=== PATIENT | male | born 1965 | race Caucasian/White ===

== ENCOUNTER → 2016-09-16 | Outpatient (CLI) | payer MEDICARE, MEDICAID ==
[~2016-09-16] MED LIST: ALBU0.63 IH; ALBU2.5V4 IH; ALPR0.5T7 PO; AMOX500C2 PO; ARIP10TA10 PO; ATOR20TA66 PO; BENZ-13 PO; CIPR500T4 PO; DIVA500T7 PO; DULO60CA6 PO; FLUT9.9S NS; HYDR12.5 PO; HYDR4TAB49 PO; NF-SOLIF5T PO; OMEG1CAP58 PO; OMEP20CA12 PO; OXYC-465 PO; PRD20T PO; RT-ALBUINH INH; TRAZ100T92 PO; TRAZ150T72
--- NOTE | 2016-09-16 11:50 | Diagnostic Imaging Report ---
PROCEDURE: MRI right joint upper extremity without contrast. TECHNIQUE: Multiplanar, multisequence non contrast-enhanced MRI of the right upper extremity was accomplished. INDICATION: Right shoulder pain. FINDINGS: There is no os acromiale or Hill-Sachs deformity. The clavicular joint demonstrates mild AC joint osteoarthritis with mild inferior osteophytes. This has minimal impression upon the adjacent myotendinous junction of the supraspinatus. There is minimal fluid in the subacromial subdeltoid bursa. The supraspinatus and infraspinatus tendons demonstrate no significant tear. There is a slightly increased signal compatible with tendinosis and mild partial intrasubstance tear in the distal infraspinatus and low-grade partial bursal side tear in the distal supraspinatus tendon. The subscapular tendon demonstrates mild thickening and increased signal compatible with tendinosis. The long head biceps tendon is in its groove. The glenoid labrum demonstrates nonspecific increased signal in its superior segment and may relate to degeneration. The muscle bulk and signal is normal. IMPRESSION: 1. AC joint osteoarthritis with small inferior osteophytes. 2. Low grade partial tears and tendinosis seen in the rotator cuff tendons. 3. Increased signal seen in the superior segment of the labrum may relate to degeneration or nondisplaced tear. If needed, this can be better evaluated with MR arthrogram. Dictated by: Dictated on workstation # [id number]
== END ==
LOC: RAD 09:39
PROVIDERS: ATTEND Nurse Practitioner
DX: M75.101 Unspecified rotator cuff tear or rupture of right shoulder, not specified as traumatic (principal)
CPT/HCPCS: 73221

== ENCOUNTER 2016-11-23 09:09 | Outpatient (CLI) | payer MEDICARE, MEDICAID ==
[~2016-11-23] VITALS: Ht 170.2 cm; Wt 74.0 kg
[~2016-11-23 09:09] MED LIST changes: -ALBU0.63 IH; -ARIP10TA10 PO; -DULO60CA6 PO; -FLUT9.9S NS; -HYDR4TAB49 PO; -NF-SOLIF5T PO; -OMEG1CAP58 PO; -TRAZ100T92 PO
[2016-11-23 09:20] VITALS: BP 100/78
[2016-11-23] MEDS ORDERED: DULO60CA6 PO (09:31)
[2016-11-23] MEDS ORDERED: ARIP10TA10 PO (09:31)
[2016-11-23] MEDS ORDERED: NF-SOLIF5T PO (09:31)
[2016-11-23] MEDS ORDERED: ALBU0.63 IH (09:31)
[2016-11-23] MEDS ORDERED: FLUT9.9S NS (09:31)
[2016-11-23] MEDS ORDERED: TRAZ100T92 PO (09:31)
[2016-11-23] MEDS ORDERED: OMEG1CAP58 PO (09:37)
== END 2016-11-23 09:45 | disposition home or self-care (01) ==
LOC: PREOP 09:09
PROVIDERS: ATTEND Orthopaedic Surgery
DX: Z01.818 Encounter for other preprocedural examination (principal); Z11.2 Encounter for screening for other bacterial diseases; S43.431A Superior glenoid labrum lesion of right shoulder, initial encounter
CPT/HCPCS: 87081

== ENCOUNTER 2016-11-30 06:00 | Day surgery (SDC) | payer MEDICARE, MEDICAID ==
--- NOTE | 2016-11-23 13:59 | HISTORY AND PHYSICAL ---
DATE OF SERVICE: HISTORY: The patient is a 51-year-old right-hand dominant gentleman with complaints of right shoulder pain. He reports pain which has been progressive over the last several months. He reports it is worth with overhead activities. He denies any specific injuries or trauma. He underwent an MRI which revealed a SLAP tear. There was also evidence of rotator cuff tendinosis but no full thickness tearing. Due to functional impairment and failure to improve with conservative measures, the patient has elected to proceed with surgical intervention. REVIEW OF SYSTEMS: No chest pain, no shortness of breath, no dysuria. PAST MEDICAL HISTORY: Back pain, COPD, coronary artery disease, CVA, depression, hypertension, neck pain, osteoarthritis, seizures, BPH, chronic pain, congestive heart failure, allergic rhinitis, anxiety disorder, edema, reflux and hyperlipidemia. PAST SURGICAL HISTORY: Left carpal tunnel release, tonsillectomy, lump removed from throat and tooth extraction. FAMILY HISTORY: Significant for hypertension, ischemic heart disease, COPD, diabetes. PRIMARY CARE PROVIDER: [facility]. MEDICATIONS: 1. Fish oil. 2. Diphenhydramine. 3. Depakote. 4. Hydrochlorothiazide. 5. Trazodone. 6. Flonase. 7. Ventolin. 8. Albuterol. 9. Abilify. 10. Cymbalta. 11. Omeprazole. 12. VESIcare. 13. Lipitor. 14. Alprazolam. 15. Percocet. 16. Potassium. ALLERGIES: ULTRACET, CODEINE and PROZAC. SOCIAL HISTORY: The patient smokes one pack per day. The patient drinks alcohol regularly. PHYSICAL EXAMINATION: GENERAL: The patient is well-developed, well-nourished in no acute distress. HEENT: Normocephalic, atraumatic. Pupils are equal, round and react to light. Oropharynx is clear. NECK: Supple with no lymphadenopathy. LUNGS: Clear to auscultation bilaterally. HEART: Regular rate and rhythm. ABDOMEN: Soft, nontender and nondistended. EXTREMITIES: The right shoulder demonstrates no atrophy. No skin lesions are noted. He has intact sensation throughout his right upper extremity. He has a positive Neer's and positive Hawkin's sign with markedly positive Hillside's maneuver. No gross weakness with abduction or external rotation but mild pain elicited. Active range of motion is symmetric in all planes with 170 degrees of forward elevation, external rotation of 90 degrees and internal rotation of 80 degrees. IMPRESSION: Right shoulder SLAP tear with rotator cuff tendinosis. PLANS: Right shoulder arthroscopy with biceps tenotomy, labral debridement and acromioplasty. The risks, benefits, options and ramifications and recovery were discussed at length with the patient. He understands and wishes to proceed. Job ID: [id number] DocumentID: [id number] Dictated Date: 11/22/2016 09:40:34 Steam Hoist Operator Date: 11/22/2016 10:33:59 Dictated By: ALY CORREA MD
[~2016-11-30] VITALS: Ht 170.2 cm; Wt 74.0 kg
[~2016-11-30 06:00] MED LIST changes: +ALBU0.63 IH; +ARIP10TA10 PO; +DULO60CA6 PO; +FLUT9.9S NS; +NF-SOLIF5T PO; +OMEG1CAP58 PO; +TRAZ100T92 PO
[2016-11-30] MEDS ORDERED: NS (IVPB) 50 ML ONE (06:31)
[2016-11-30] MEDS ORDERED: ceFAZolin 1,000 MG (ANCEF) VIAL ONE (06:31)
[2016-11-30] MEDS ORDERED: FAMOTIDINE 20MG/2ML IV (PEPCID) ONE (06:36)
[2016-11-30] MEDS ORDERED: LACTATED RINGERS 1,000 ML IV PRN ×2 (06:46→06:52)
[2016-11-30] MEDS ORDERED: MIDAZOLAM 2 MG/2 ML (VERSED) VIAL ONE (06:48)
[2016-11-30] MEDS ORDERED: ONDANSETRON 4 MG/2 ML (SDV) Z0FRAN ONE (06:49)
[2016-11-30] MEDS ORDERED: proPOfol 200 MG/20 ML (DIPRIVAN) VIAL IV ONE (06:49)
[2016-11-30] MEDS ORDERED: DEXAMETHASONE PF 10 MG/ML (DECADRON) VIAL ONE (06:49)
[2016-11-30] MEDS ORDERED: LACTATED RINGERS 1,000 ML IV ONE (06:49)
[2016-11-30] MEDS ORDERED: SEVOFLURANE (ULTANE) 15 ML INHAL SOLN ONE (06:49)
[2016-11-30] MEDS ORDERED: LIDOCAINE PF 2% 10 ML (XYLOCAINE) AMP ONE (06:49)
[2016-11-30] MEDS ORDERED: ROCURONIUM 50 MG/5 ML (ZEMURON) VIAL IV ONE (06:49)
[2016-11-30 07:00] VITALS: BP 107/80
[2016-11-30] MEDS ORDERED: FAMOTIDINE 20MG/2ML IV (PEPCID) IV ONE ×2 (07:00)
[2016-11-30] MEDS ORDERED: ceFAZolin 1 GM/NS 50 ML IVPB IV ONE ×2 (07:00)
[2016-11-30] MEDS ORDERED: fentaNYL INJECTION 100 MCG/2 ML AMP ONE (07:08)
[2016-11-30] MEDS ORDERED: BUPIVACAINE 0.25% 30 ML (SENSORCAINE) VIAL ONE (07:11)
--- NOTE | 2016-11-30 07:22 | Progress Note-Pre Operative ---
Pre-Operative Progress Note H&P Reviewed The H&P was reviewed, patient examined and no changes noted. Date H&P Reviewed: November 30, 2016 Time H&P Reviewed: 07:11 Pre-Operative Diagnosis: right shoulder SLAP tear and rotator cuff impingement ALY CORREA MD November 30, 2016 07:22
--- NOTE | 2016-11-30 07:23 | Progress Note-Post Operative ---
Post-Operative Progess Note Surgeon (s)/Diesel Power Mechanic (s) Surgeon ALY CORREA MD Diesel Power Mechanic: Selvin Salinas Pre-Operative Diagnosis right shoulder SLAP tear and rotator cuff impingement Post-Operative Diagnosis right shoulder SLAP tear and rotator cuff impingement Post-Op Procedure Note Date of Procedure: November 30, 2016 Name of Procedure Performed: right shoulder arthroscopic biceps tenotomy and acromioplasty Description of the Procedure: see operative note Findings of the Procedure TYPE 2 SLAP tear Anesthesia Type GETA Estimated blood loss (mL): minimal Packing: none Specimen(s) collected/removed none ALY CORREA MD November 30, 2016 07:23
[2016-11-30] MEDS ORDERED: HYDROmorphone (DILAUDID) 4 MG TAB PO PRN (07:30)
[2016-11-30] MEDS ORDERED: GLYCOPYRROLATE 0.2 MG/ML (ROBINUL) 2 ML VIAL ONE (07:56)
[2016-11-30] MEDS ORDERED: NEOSTIGMINE (BLOXIVERZ ) 1 MG/1ML 10 ML VIAL ONE (07:56)
[2016-11-30] MEDS: morphine PF (DURAMORPH) 10 MG/10 ML AMP ONE ×2 (07:57→08:19)
[2016-11-30] MEDS ORDERED: HYDROmorphone (DILAUDID) 2 MG/ML VIAL IVP PRN (08:30)
[2016-11-30] MEDS: fentaNYL INJECTION 100 MCG/2 ML AMP IVP PRN ×2 (08:33→08:38)
[2016-11-30 09:20] VITALS: BP 138/90
[2016-11-30] MEDS ORDERED: HYDR4TAB49 PO (09:35)
[2016-11-30 09:50] VITALS: BP 126/90
[2016-11-30 10:20] VITALS: BP 131/89
--- NOTE | 2016-11-30 10:22 | OPERATIVE REPORT ---
DATE OF SERVICE: 11/30/2016 PREOPERATIVE DIAGNOSES: 1. Right shoulder SLAP tear. 2. Right shoulder rotator cuff impingement. POSTOPERATIVE DIAGNOSES: 1. Right shoulder SLAP tear. 2. Right shoulder rotator cuff impingement. PROCEDURES: 1. Right shoulder arthroscopic biceps tenotomy. 2. Right shoulder arthroscopic acromioplasty. SURGEON: Ervin Correa MD LUTE PACKER OR APPLIER: BAILEE Jarvis, who assisted throughout the procedure and closed the incisions. ANESTHESIA: General endotracheal by Hanh Acosta CRNA. ESTIMATED BLOOD LOSS: Minimal. DRAINS: None. COMPLICATIONS: None. POSTOPERATIVE PLAN: Sling wear for comfort with progressive range of motion as symptoms allow. The patient was transported to the recovery room awake and in stable condition. STATEMENT OF MEDICAL NECESSITY: The patient is a 51-year-old [id number] gentleman with complaints of pain with overhead activities in his right shoulder. He underwent an MRI, which revealed a type 2 SLAP tear as well as impingement findings. He had tried rest, activity modifications and anti-inflammatories without improvement and therefore elected to proceed with surgical intervention. Examination under anesthesia revealed forward elevation of 170 degrees, external rotation of 90 degrees, internal rotation of 80 degrees. Arthroscopic findings demonstrated type 2 SLAP tear. The rotator cuff was intact throughout. There was no significant glenoid or humeral head articular wear. The remainder of the labrum was intact. Subacromial space demonstrated dense bursitis with sloping of the anterior and lateral acromion with no bursal-sided rotator cuff pathology noted. PROCEDURE: After risks and benefits of procedure were discussed and questions were answered, an informed consent was signed and placed on the chart. The operative site was confirmed in the preoperative holding area initialed by the surgeon. The patient was then transported to the operating room. After adequate levels of general endotracheal anesthetic were obtained, a timeout was called, confirmed the operative site. The right shoulder and right upper extremity were prepped and draped in the usual sterile fashion after performing an examination under anesthesia. The shoulder joint was injected with 20 mL of fluid, as was the subacromial space. Standard posterior portal was placed and under direct visualization, anterior portal was created in the interval between the biceps, subscapularis and glenoid. The biceps anchor was released and the stump was debrided with the shaver. The scope was then redirected into the subacromial space and a lateral portal was created. A bursectomy was performed and the acromion was planed to a flat type 1 acromion. The subacromial space was copiously irrigated. The port sites were closed with 3-0 nylon in simple interrupted fashion. The shoulder was injected with Duramorph. Port sites infiltrated with plain Marcaine. A soft dressing and sling were applied and the patient was transported to the recovery room awake and in stable condition. Job ID: [id number] DocumentID: [id number] Dictated Date: 11/30/2016 08:08:52 Disc Sander Date: 11/30/2016 10:21:18 Dictated By: ERVIN CORREA MD
== END 2016-11-30 10:37 | disposition home or self-care (01) ==
LOC: SDC 06:00
PROVIDERS: ATTEND Orthopaedic Surgery
DX: S43.431A Superior glenoid labrum lesion of right shoulder, initial encounter (principal); M75.41 Impingement syndrome of right shoulder; J44.9 Chronic obstructive pulmonary disease, unspecified; I25.10 Atherosclerotic heart disease of native coronary artery without angina pectoris; Z86.73 Personal history of transient ischemic attack (TIA), and cerebral infarction without residual deficits; F32.9 Major depressive disorder, single episode, unspecified; I10 Essential (primary) hypertension; G40.909 Epilepsy, unspecified, not intractable, without status epilepticus; M19.90 Unspecified osteoarthritis, unspecified site; N40.0 Benign prostatic hyperplasia without lower urinary tract symptoms; I50.9 Heart failure, unspecified; J30.9 Allergic rhinitis, unspecified; F41.9 Anxiety disorder, unspecified; K21.9 Gastro-esophageal reflux disease without esophagitis; E78.5 Hyperlipidemia, unspecified; Z79.899 Other long term (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; F17.210 Nicotine dependence, cigarettes, uncomplicated; G47.33 Obstructive sleep apnea (adult) (pediatric)

== ENCOUNTER 2017-03-21 17:31 | Emergency (ER) | payer MEDICARE, MEDICAID ==
[~2017-03-21] VITALS: Ht 170.2 cm; Wt 74.0 kg
[~2017-03-21 17:31] MED LIST changes: +HYDR4TAB49 PO
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
[2017-03-21] MEDS ORDERED: ORPHENADRINE 60 MG/2 ML (NORFLEX) AMP IM ONE (18:45)
[2017-03-21] MEDS ORDERED: KETOROLAC 60 MG/2 ML VIAL IM ONE (18:45)
[2017-03-21 19:03] VITALS: BP 146/96
== END 2017-03-21 19:03 | disposition home or self-care (01) ==
LOC: EDUNIT# 17:31 → ER 17:33
DX: M25.511 Pain in right shoulder (principal); J43.9 Emphysema, unspecified; I25.2 Old myocardial infarction; I10 Essential (primary) hypertension; G40.909 Epilepsy, unspecified, not intractable, without status epilepticus; K21.9 Gastro-esophageal reflux disease without esophagitis; M19.90 Unspecified osteoarthritis, unspecified site; F41.9 Anxiety disorder, unspecified; F43.10 Post-traumatic stress disorder, unspecified; F17.210 Nicotine dependence, cigarettes, uncomplicated; Z87.820 Personal history of traumatic brain injury; Z86.73 Personal history of transient ischemic attack (TIA), and cerebral infarction without residual deficits; Z90.89 Acquired absence of other organs; Z96.652 Presence of left artificial knee joint
CPT/HCPCS: 96372; 99284

== ENCOUNTER → 2017-03-31 | Outpatient (CLI) | payer MEDICARE, MEDICAID ==
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
== END ==
LOC: RAD 07:59
PROVIDERS: ATTEND Orthopaedic Surgery
DX: S46.111A Strain of muscle, fascia and tendon of long head of biceps, right arm, initial encounter (principal); M19.011 Primary osteoarthritis, right shoulder; X50.9XXA Other and unspecified overexertion or strenuous movements or postures, initial encounter; Y99.8 Other external cause status
CPT/HCPCS: 73221

== ENCOUNTER 2017-10-18 00:45 | Emergency (ER) | payer MEDICARE, MEDICAID ==
[~2017-10-18] VITALS: Ht 172.7 cm; Wt 81.6 kg
[2017-10-18 00:50] VITALS: BP 147/97
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
--- OUTSIDE RECORDS SUMMARY | 2017-10-18 00:57 | XMS REPORT ---
Author Author ARCHANA KAYLYNN Organization [facility] Address [address] [place] [address] Care Team Providers Care Critical Care Unit Manager Name Role Phone HARDIK MAGAÑAE Unavailable PROBLEMS Type Condition ICD9-CM Code [id number] Code Onset Dates Condition Status SNOMED Code Problem Pain in right shoulder M25.511 Active 01638610 Problem Gastroesophageal reflux disease, esophagitis presence not specified K21.9 Active 722183283 Problem Edema, unspecified type R60.9 Active 705655532 Problem Oxygen desaturation during sleep G47.34 Active 179589296 Problem COPD (chronic obstructive pulmonary disease) J44.9 Active 80865547 Problem Sleep apnea due to high altitude G47.31 Active 42993777 Problem Tobacco abuse Z72.0 Active 44682579 Problem Generalized osteoarthritis M15.9 Active 697345228 Problem Gastroesophageal reflux disease without esophagitis K21.9 Active 639346755 Problem Tear of right rotator cuff, unspecified tear extent M75.101 Active 601341618 Problem 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 Active 844800925 Problem Anxiety F41.9 Active 54052768 Problem BPH (benign prostatic hyperplasia) N40.0 Active 496414838 Problem LEROY (generalized anxiety disorder) F41.1 Active 64305897 Problem Chronic pain G89.29 Active 78664015 Problem Seizures R56.9 Active 23205501 Problem Hypercholesterolemia E78.00 Active 47410529 Problem Environmental allergies Z91.09 Active 259161223 Problem Major depressive disorder, recurrent episode F33.9 Active 673370670 Problem Other chronic pain G89.29 Active 59386254 Problem Irritable bladder N32.89 Active 145560048 Problem Scabies B86 Active 526320175 ALLERGIES Unknown Allergies SOCIAL HISTORY No smoking Hx information available PLAN OF CARE VITAL SIGNS MEDICATIONS Medication Instructions Dosage Frequency Start Date End Date Duration Status Hydrochlorothiazide 12.5 MG Orally Once a day 1 tablet 24h 30 days Active Abilify 10 mg Orally Once in the morning 1 tablet 30 days Active VESIcare 5 mg Orally Once a day 1 tablet 24h Oct, 30 days Active Cymbalta 60 mg Orally Once a day 1 capsule 24h 30 days Active Depakote 500 MG Orally Twice a day 2 tablets 12h 30 days Active Lipitor 20 mg Orally Once a day 1 tablet 24h 30 days Active RESULTS No Results PROCEDURES No Known procedures IMMUNIZATIONS No Known Immunizations
--- OUTSIDE RECORDS SUMMARY | 2017-10-18 00:58 | XMS REPORT ---
Author Author ARCHANA KAYLYNN Organization [facility] Address [address] [place] [address] Care Team Providers Care Local Combination Truck Driver Name Role Phone KAYLYNN MAGAÑA Unavailable PROBLEMS Type Condition ICD9-CM Code [id number] Code Onset Dates Condition Status SNOMED Code Problem Pain in right shoulder M25.511 Active 48936977 Problem Gastroesophageal reflux disease, esophagitis presence not specified K21.9 Active 688665591 Problem Edema, unspecified type R60.9 Active 754296314 Problem Oxygen desaturation during sleep G47.34 Active 757526046 Problem COPD (chronic obstructive pulmonary disease) J44.9 Active 24545015 Problem Sleep apnea due to high altitude G47.31 Active 07638368 Problem Tobacco abuse Z72.0 Active 99501558 Problem Generalized osteoarthritis M15.9 Active 865794851 Problem Gastroesophageal reflux disease without esophagitis K21.9 Active 717080080 Problem Tear of right rotator cuff, unspecified tear extent M75.101 Active 367111242 Problem 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 Active 781791899 Problem Anxiety F41.9 Active 21117638 Problem BPH (benign prostatic hyperplasia) N40.0 Active 025463430 Problem LEROY (generalized anxiety disorder) F41.1 Active 96153787 Problem Chronic pain G89.29 Active 32131137 Problem Seizures R56.9 Active 97478713 Problem Hypercholesterolemia E78.00 Active 70445105 Problem Environmental allergies Z91.09 Active 171960025 Problem Major depressive disorder, recurrent episode F33.9 Active 841738710 Problem Other chronic pain G89.29 Active 51518747 Problem Irritable bladder N32.89 Active 987670926 Problem Scabies B86 Active 942031114 ALLERGIES No Information SOCIAL HISTORY Never Assessed PLAN OF CARE VITAL SIGNS MEDICATIONS Medication Instructions Dosage Frequency Start Date End Date Duration Status Alprazolam 0.5 MG Orally 2 times a day prn 1 tablet Jul, 28 days Active RESULTS No Results PROCEDURES No Known procedures IMMUNIZATIONS No Known Immunizations MEDICAL (GENERAL) HISTORY [...]
--- OUTSIDE RECORDS SUMMARY | 2017-10-18 01:01 | XMS REPORT ---
Author Author ARCHANA KAYLYNN Organization [facility] Address [address] [place] [address] Care Team Providers Care Ice Handler Name Role Phone KAYLYNN MAGAÑA Unavailable PROBLEMS Type Condition ICD9-CM Code [id number] Code Onset Dates Condition Status SNOMED Code Problem Pain in right shoulder M25.511 Active 36736486 Problem Gastroesophageal reflux disease, esophagitis presence not specified K21.9 Active 640795212 Problem Edema, unspecified type R60.9 Active 615224073 Problem Oxygen desaturation during sleep G47.34 Active 146217118 Problem COPD (chronic obstructive pulmonary disease) J44.9 Active 69434062 Problem Sleep apnea due to high altitude G47.31 Active 03685062 Problem Tobacco abuse Z72.0 Active 89515201 Problem Generalized osteoarthritis M15.9 Active 550399182 Problem Gastroesophageal reflux disease without esophagitis K21.9 Active 370744076 Problem Tear of right rotator cuff, unspecified tear extent M75.101 Active 471466573 Problem 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 Active 185288416 Problem Anxiety F41.9 Active 60543777 Problem BPH (benign prostatic hyperplasia) N40.0 Active 243845229 Problem LEROY (generalized anxiety disorder) F41.1 Active 56698553 Problem Chronic pain G89.29 Active 63692891 Problem Seizures R56.9 Active 81622493 Problem Hypercholesterolemia E78.00 Active 73690421 Problem Environmental allergies Z91.09 Active 641794590 Problem Major depressive disorder, recurrent episode F33.9 Active 262358166 Problem Other chronic pain G89.29 Active 57056925 Problem Irritable bladder N32.89 Active 830589416 Problem Scabies B86 Active 585547675 ALLERGIES No Information SOCIAL HISTORY Never Assessed PLAN OF CARE VITAL SIGNS MEDICATIONS Medication Instructions Dosage Frequency Start Date End Date Duration Status Alprazolam 0.5 MG Orally 2 times a day prn 1 tablet Jul, 28 days Active Percocet 10-325 MG Orally 3 times a day 1 tablet as needed 8h November, 28 days Active RESULTS No Results PROCEDURES [...]
--- OUTSIDE RECORDS SUMMARY | 2017-10-18 01:05 | XMS REPORT ---
Author Author MAGAÑA KAYLYNN Organization [facility] Address [address] [place] [address] Care Team Providers Care Protohistorian Name Role Phone KAYLYNN MAGAÑA Unavailable PROBLEMS Type Condition ICD9-CM Code [id number] Code Onset Dates Condition Status SNOMED Code Problem Pain in right shoulder M25.511 Active 52581070 Problem Gastroesophageal reflux disease, esophagitis presence not specified K21.9 Active 523636021 Problem Edema, unspecified type R60.9 Active 595521841 Problem Oxygen desaturation during sleep G47.34 Active 725749638 Problem COPD (chronic obstructive pulmonary disease) J44.9 Active 89147017 Problem Sleep apnea due to high altitude G47.31 Active 21451941 Problem Tobacco abuse Z72.0 Active 10326976 Problem Generalized osteoarthritis M15.9 Active 338881648 Problem Gastroesophageal reflux disease without esophagitis K21.9 Active 313016143 Problem Tear of right rotator cuff, unspecified tear extent M75.101 Active 882193009 Problem 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 Active 513426696 Problem Anxiety F41.9 Active 99509267 Problem BPH (benign prostatic hyperplasia) N40.0 Active 336535548 Problem LEROY (generalized anxiety disorder) F41.1 Active 93512893 Problem Chronic pain G89.29 Active 32594473 Problem Seizures R56.9 Active 45876254 Problem Hypercholesterolemia E78.00 Active 35116803 Problem Environmental allergies Z91.09 Active 442581253 Problem Major depressive disorder, recurrent episode F33.9 Active 086516662 Problem Other chronic pain G89.29 Active 17008442 Problem Irritable bladder N32.89 Active 123665286 Problem Scabies B86 Active 995524028 ALLERGIES Substance Reaction Event Type Date Status Ultracet headache, "blindness" Drug Allergy Jul, Active Prozac "stops my heart" Drug Allergy Jul, Active Codeine Sulfate agitation Drug Allergy Jul, Active SOCIAL HISTORY No smoking Hx information available PLAN OF CARE Activity Details Follow Up 3 Months Reason:chm chronic pain VITAL SIGNS Height 67.5 in 2016-08-11 Weight 160.0 lbs 2016-08-11 Temperature 97.7 degrees Fahrenheit 2016-08-11 Heart Rate 80 bpm 2016-08-11 Respiratory Rate 22 2016-08-11 BMI 24.69 kg/m2 2016-08-11 Blood pressure systolic 120 mmHg 2016-08-11 Blood pressure diastolic 78 mmHg 2016-08-11 MEDICATIONS Medication Instructions Dosage Frequency Start Date End Date Duration Status Hydrochlorothiazide 12.5 MG Orally Once a day 1 tablet 24h Active Albuterol Sulfate (2.5 MG/3ML) 0.083% Inhalation Four times a day prn 3 ml Active Flonase Allergy Relief 50 MCG/ACT Nasally 2 times a day 1-2 spray in each nostril 12h Active Permethrin 5 % Externally treat today and repeat in 7 days apply to affected area then wash off in 12 hours Jul, Jul, 7 day(s) Active Albuterol Sulfate HFA 108 (90 Base) MCG/ACT Inhalation every 4 hrs 2 puffs as needed 4h Active Omeprazole 20 mg Orally 2 times a day 1 capsule 12h Active VESIcare 5 mg Orally Once a day 1 tablet 24h Active Nebulizer Active Fish Oil 1000 MG Orally Once a day 3 capsule 24h Active Abilify 10 mg Orally Once in the morning 1 tablet Active Depakote 500 MG Orally Twice a day 2 tablets 12h Active Lipitor 20 mg Orally Once a day 1 tablet 24h Active Trazodone HCl 300 MG Orally at bedtime 1 tablet Active Percocet 10-325 MG Orally 3 times a day 1 tablet as needed 8h Jun, Active Benadryl Allergy 25 MG Orally every 6 hrs 1 tablet as needed 6h Active Alprazolam 0.5 MG Orally 2 times a day as needed Take one tablet Active Cymbalta 60 mg Orally Once a day in the morning 1 capsule Active RESULTS Name Result Date Reference Range [employer] 2016-08-11 Xray : Shoulder, Right 2 view (IN HOUSE) 2016-08-11 PROCEDURES Procedure Date Ordered Related Diagnosis Body Site No Charge Aug 11, 2016 X-RAY EXAM OF SHOULDER Aug 11, 2016 Office Visit, Est Pt., Level 4 Aug 11, 2016 [facility] VISIT ESTABLISHED PATIENT Aug 11, 2016 IMMUNIZATIONS No Known Immunizations
--- OUTSIDE RECORDS SUMMARY | 2017-10-18 01:05 | XMS REPORT ---
Author Author ARCHANA KAYLYNN Organization [facility] Address [address] [place] [address] Care Team Providers Care Civil Engineering Manager Name Role Phone KAYLYNN MAGAÑA Unavailable PROBLEMS Type Condition ICD9-CM Code [id number] Code Onset Dates Condition Status SNOMED Code Problem Pain in right shoulder M25.511 Active 87028592 Problem Gastroesophageal reflux disease, esophagitis presence not specified K21.9 Active 347889924 Problem Edema, unspecified type R60.9 Active 910825249 Problem Oxygen desaturation during sleep G47.34 Active 235508894 Problem COPD (chronic obstructive pulmonary disease) J44.9 Active 37626487 Problem Sleep apnea due to high altitude G47.31 Active 96519185 Problem Tobacco abuse Z72.0 Active 58187441 Problem Generalized osteoarthritis M15.9 Active 230962371 Problem Gastroesophageal reflux disease without esophagitis K21.9 Active 272091231 Problem Tear of right rotator cuff, unspecified tear extent M75.101 Active 167461721 Problem 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 Active 645174554 Problem Anxiety F41.9 Active 21696826 Problem BPH (benign prostatic hyperplasia) N40.0 Active 763084401 Problem LEROY (generalized anxiety disorder) F41.1 Active 25476331 Problem Chronic pain G89.29 Active 11747887 Problem Seizures R56.9 Active 98155103 Problem Hypercholesterolemia E78.00 Active 63115508 Problem Environmental allergies Z91.09 Active 549953580 Problem Major depressive disorder, recurrent episode F33.9 Active 399173494 Problem Other chronic pain G89.29 Active 77871992 Problem Irritable bladder N32.89 Active 657563185 Problem Scabies B86 Active 169540646 ALLERGIES Unknown Allergies SOCIAL HISTORY No smoking Hx information available PLAN OF CARE VITAL SIGNS MEDICATIONS Medication Instructions Dosage Frequency Start Date End Date Duration Status Abilify 10 mg Orally Once in the morning 1 tablet 30 days Active RESULTS No Results PROCEDURES No Known procedures IMMUNIZATIONS No Known Immunizations
--- OUTSIDE RECORDS SUMMARY | 2017-10-18 01:06 | XMS REPORT ---
Author Author ARCHANA KAYLYNN Organization [facility] Address [address] [place] [address] Care Team Providers Care Pot Feeder Name Role Phone KAYLYNN MAGAÑA Unavailable PROBLEMS Type Condition ICD9-CM Code [id number] Code Onset Dates Condition Status SNOMED Code Problem Pain in right shoulder M25.511 Active 89188515 Problem Gastroesophageal reflux disease, esophagitis presence not specified K21.9 Active 196778935 Problem Edema, unspecified type R60.9 Active 848076113 Problem Oxygen desaturation during sleep G47.34 Active 662280455 Problem COPD (chronic obstructive pulmonary disease) J44.9 Active 00116319 Problem Sleep apnea due to high altitude G47.31 Active 01688485 Problem Tobacco abuse Z72.0 Active 33139495 Problem Generalized osteoarthritis M15.9 Active 372170997 Problem Gastroesophageal reflux disease without esophagitis K21.9 Active 184399458 Problem Tear of right rotator cuff, unspecified tear extent M75.101 Active 335598865 Problem 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 Active 700993568 Problem Anxiety F41.9 Active 23765297 Problem BPH (benign prostatic hyperplasia) N40.0 Active 062647773 Problem LEROY (generalized anxiety disorder) F41.1 Active 56530146 Problem Chronic pain G89.29 Active 67655989 Problem Seizures R56.9 Active 30505629 Problem Hypercholesterolemia E78.00 Active 61010963 Problem Environmental allergies Z91.09 Active 494640474 Problem Major depressive disorder, recurrent episode F33.9 Active 526998293 Problem Other chronic pain G89.29 Active 23321654 Problem Irritable bladder N32.89 Active 698532567 Problem Scabies B86 Active 123085251 ALLERGIES No Information SOCIAL HISTORY Never Assessed PLAN OF CARE VITAL SIGNS MEDICATIONS Unknown Medications RESULTS No Results PROCEDURES No Known procedures [...]
[2017-10-18] MEDS ORDERED: NS IV 1000 ML 1,000 ML IV ONE (01:07)
--- OUTSIDE RECORDS SUMMARY | 2017-10-18 01:12 | XMS REPORT ---
Author Author ARCHANA KAYLYNN Organization [facility] Address [address] [place] [address] Care Team Providers Care Asset Analyst Name Role Phone KAYLYNN MAGAÑA Unavailable PROBLEMS Type Condition ICD9-CM Code [id number] Code Onset Dates Condition Status SNOMED Code Problem Other chronic pain G89.29 Active 63610130 Problem Scabies B86 Active 964730230 Problem Gastroesophageal reflux disease, esophagitis presence not specified K21.9 Active 470787245 Problem Oxygen desaturation during sleep G47.34 Active 252193682 Problem BPH (benign prostatic hyperplasia) N40.0 Active 080356239 Problem Sleep apnea due to high altitude G47.31 Active 04647204 Problem Tobacco abuse Z72.0 Active 09986366 Problem Generalized osteoarthritis M15.9 Active 583349484 Problem Gastroesophageal reflux disease without esophagitis K21.9 Active 917843895 Problem Tear of right rotator cuff, unspecified tear extent M75.101 Active 945822470 Problem 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 Active 274303169 Problem Anxiety F41.9 Active 86432446 Problem Seizures R56.9 Active 24099143 Problem LEROY (generalized anxiety disorder) F41.1 Active 21595507 Problem Chronic pain G89.29 Active 47989188 Problem COPD (chronic obstructive pulmonary disease) J44.9 Active 70430483 Problem Environmental allergies Z91.09 Active 526512079 Problem Irritable bladder N32.89 Active 275912445 Problem Major depressive disorder, recurrent episode F33.9 Active 298186970 Problem Pain in right shoulder M25.511 Active 12823382 Problem Hypercholesterolemia E78.00 Active 19058033 Problem Edema, unspecified type R60.9 Active 626347773 ALLERGIES No Known Allergies SOCIAL HISTORY No smoking Hx information available PLAN OF CARE VITAL SIGNS MEDICATIONS Medication Instructions Dosage Frequency Start Date End Date Duration Status Percocet 10-325 MG Orally 3 times a day 1 tablet as needed 8h Jun, 28 days Active Alprazolam 0.5 MG Orally 2 times a day as needed Take one tablet 28 Active RESULTS No Results PROCEDURES No Known procedures IMMUNIZATIONS No Known Immunizations
--- NOTE | 2017-10-18 01:14 | ED Chest Pain ---
General Stated Complaint: SOB,CP Source: patient Exam Limitations: no limitations History of Present Illness Date Seen by Provider: Oct 18, 2017 Time Seen by Provider: 00:58 Initial Comments Patient presents to ER by private conveyance with a chief complaint chest pain in the substernal region that radiates to his right lower chest. He says he is having shortness of breath it's been going on alongside the chest pain for the last 4 days. He did not get checked up until today because he started feeling weaker. He has a history of a mild heart attack many years ago but does not follow with cardiology. He does follow however with Dr. Cade. He is not having any nausea vomiting chills sweats or fever. He does have a history of COPD/asthma for which he uses albuterol by [facility] as well as small volume nebulizer usually 3-4 times a day. He has not increased that recently. He was recently told to start Advair but he has not used it yet. He has not been on prednisone recently. He says he's had some swelling in both of his hands but none in his feet. No history of heart failure. He still smokes cigarettes. He does not have any history of thyroid disease but he does have a history of high cholesterol, blood pressure and coronary artery disease. No stents or CABG. Allergies and Home Medications Allergies Coded Allergies: acetaminophen (Verified Allergy, Unknown, 11/23/16) codeine (Verified Allergy, Unknown, 11/23/16) fluoxetine (Verified Allergy, Unknown, 11/23/16) morphine (Verified Allergy, Unknown, couldn't sleep for days, 11/23/16) tramadol (Verified Allergy, Unknown, 11/23/16) Home Medications Albuterol Sulfate 8.5 Gm Hfa.aer.ad, 1 PUFF INH Q4H, (Reported) Albuterol Sulfate 0.63 Mg/3 Ml Vial.neb, 0.63 MG IH QID, (Reported) Alprazolam 0.5 Mg Tablet, 0.5 MG PO BID PRN for ANXIETY, (Reported) Aripiprazole 10 Mg Tablet, 10 MG PO DAILY, (Reported) Atorvastatin Calcium 20 Mg Tablet, 20 MG PO DAILY, (Reported) Divalproex Sodium 500 Mg Tablet.dr, 500 MG PO Q12H, (Reported) Duloxetine HCl 60 Mg Capsule.dr, 60 MG PO DAILY, (Reported) Fluticasone Propionate 9.9 Ml [place].susp, 1 SPRAY NS BID, (Reported) Hydromorphone HCl 4 Mg Tablet, 1 TAB PO Q4H PRN for PAIN Prescribed by: YESSENIA SÁNCHEZ on 11/30/16 0935 Datil-3 Fatty Acids/Fish Oil 1 Each Capsule, 1,000 MG PO DAILY, (Reported) Omeprazole 20 Mg Capsule.dr, 20 MG PO BID, (Reported) Solifenacin Succinate 5 Mg Tablet, 5 MG PO DAILY, (Reported) Trazodone HCl 100 Mg Tablet, 100 MG PO HS, (Reported) Patient Home Medication List Home Medication List Reviewed: Yes Review of Systems Constitutional: No chills, No diaphoresis EENTM: No Blurred Vision, No Double Vision Respiratory: See HPI, Denies Cough, Shortness of Air, Wheezing Cardiovascular: See HPI, Chest Pain, Denies Edema, Denies Lightheadedness, Denies Palpitations Gastrointestinal: Denies Abdomen Distended, Denies Abdominal Pain, Denies Constipated, Denies Diarrhea, Denies Nausea Genitourinary: Denies Burning, Denies Discharge Musculoskeletal: No back pain, No joint pain Skin: No pruritus, No rash Past Aojxjdb-Uncvgj-Pgjleo Hx Patient Social History Alcohol Use: Occasionally Uses Alcohol Beverage of Choice: Beer Recreational Drug Use: No Smoking Status: Current Everyday Smoker Type Used: Cigarettes Recent Foreign Travel: No Contact w/Someone Who Travel: No Recent Hopitalizations: No Immunizations Up To Date Tetanus Booster (TDap): Unknown Seasonal Allergies Seasonal Allergies: Yes Surgeries History of Surgeries: Yes (BACK/NECK, LEFT KNEE RECONSTRUCTION, 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, LEFT CTR) Surgeries: Orthopedic, Tonsillectomy Respiratory History of Respiratory Disorde: Yes (WEARS OXYGEN PRN) Respiratory Disorders: Asthma, COPD, Emphysema Currently Using CPAP: No Currently Using BIPAP: No Cardiovascular History of Cardiac Disorders: Yes Cardiac Disorders: Heart Attack, Hypertension, Palpitations Neurological History of Neurological Disord: Yes (LAST SEIZURE 6 MONTHS AGO) Neurological Disorders: Seizure Disorder, Stroke, Traumatic Brain Injury Reproductive System Hx Reproductive Disorders: No Gastrointestinal History of Gastrointestinal Di: Yes Gastrointestinal Disorders: Gastroesophageal Reflux Musculoskeletal History of Musculoskeletal Dis: Yes Musculoskeletal Disorders: Arthritis, Chronic Back Pain Endocrine History of Endocrine Disorders: No HEENT History of HEENT Disorders: No Loss of Vision: Denies Hearing Impairment: Denies Cancer History of Cancer: No Psychosocial History of Psychiatric Problem: Yes Behavioral Health Disorders: Anxiety, PTSD Integumentary History of Skin or Integumenta: No Blood Transfusions History of Blood Disorders: No Adverse Reaction to a Blood Tr: No Family Medical History Significant Family History: No Pertinent Family Hx Physical Exam Vital Signs Vital Signs - First Documented 10/18/17 00:50 Temp 98.3 Pulse 85 Resp 29 B/P (MAP) 147/97 (114) Pulse Ox 97 O2 Delivery Room Air Capillary Refill : General Appearance: No Apparent Distress, WD/WN HEENT: PERRL/EOMI, Normal ENT Inspection, Pharynx Normal Neck: Full Range of Motion, Non Tender, Supple Respiratory: Chest Non Tender, No Accessory Muscle Use, No Respiratory Distress , Decreased Breath Sounds, Wheezing Cardiovascular: Regular Rate, Rhythm, No Edema, No Murmur, Normal Peripheral Pulses Gastrointestinal: Non Tender, Soft Extremity: Normal Capillary Refill, Normal Inspection, No Pedal Edema Neurologic/Psychiatric: Alert, Oriented x3, No Motor/Sensory Deficits, Normal Mood/Affect Skin: Normal Color, Warm/Dry Progress/Results/Core Measures Results/Orders Lab Results Laboratory Tests Test 10/18/17 01:00 Range/Units White Blood Count 11.3 H 4.3-11.0 10^3/uL Red Blood Count 5.18 4.35-5.85 10^6/uL Hemoglobin 15.6 13.3-17.7 G/DL Hematocrit 46 40-54 % Mean Corpuscular Volume 88 80-99 FL Mean Corpuscular Hemoglobin 30 25-34 PG Mean Corpuscular Hemoglobin Concent 34 32-36 G/DL Red Cell Distribution Width 14.7 H 10.0-14.5 % Platelet Count 314 130-400 10^3/uL Mean Platelet Volume 9.7 7.4-10.4 FL Neutrophils (%) (Auto) 60 42-75 % Lymphocytes (%) (Auto) 30 12-44 % Monocytes (%) (Auto) 9 0-12 % Eosinophils (%) (Auto) 1 0-10 % Basophils (%) (Auto) 0 0-10 % Neutrophils # (Auto) 6.8 1.8-7.8 X 10^3 Lymphocytes # (Auto) 3.4 1.0-4.0 X 10^3 Monocytes # (Auto) 1.0 0.0-1.0 X 10^3 Eosinophils # (Auto) 0.2 0.0-0.3 10^3/uL Basophils # (Auto) 0.0 0.0-0.1 10^3/uL Prothrombin Time 13.8 12.2-14.7 SEC INR Comment 1.1 0.8-1.4 Activated Partial Thromboplast Time 31 24-35 SEC Sodium Level 139 135-145 MMOL/L Potassium Level 3.5 L 3.6-5.0 MMOL/L Chloride Level 107 98-107 MMOL/L Carbon Dioxide Level 22 21-32 MMOL/L Anion Gap 10 5-14 MMOL/L Blood Urea Nitrogen 6 L 7-18 MG/DL Creatinine 0.90 0.60-1.30 MG/DL Estimat Glomerular Filtration Rate > 60 BUN/Creatinine Ratio 7 Glucose Level 155 H 70-105 MG/DL Calcium Level 8.7 8.5-10.1 MG/DL Magnesium Level 2.4 1.8-2.4 MG/DL Total Bilirubin 0.5 0.1-1.0 MG/DL Aspartate Amino Transf (AST/SGOT) 26 5-34 U/L Alanine Aminotransferase (ALT/SGPT) 37 0-55 U/L Alkaline Phosphatase 99 40-136 U/L Myoglobin 33.5 10.0-92.0 NG/ML Troponin I < 0.30 <0.30 NG/ML B-Type Natriuretic Peptide 10.1 <100.0 PG/ML Total Protein 7.3 6.4-8.2 GM/DL Albumin 4.2 3.2-4.5 GM/DL My Orders Orders - JARAD,ROSAURA J Cbc With Automated Diff (10/18/17 01:07) Magnesium (10/18/17 01:07) Chest 1 View, Ap/Pa Only (10/18/17 01:07) Ekg Tracing (10/18/17 01:07) Cardiac Profile 1 (10/18/17 01:07) Comprehensive Metabolic Panel (10/18/17 01:07) Myoglobin Serum (10/18/17 01:07) Protime With Inr (10/18/17 01:07) Partial Thromboplastin Time (10/18/17 01:07) O2 (10/18/17 01:07) Monitor-Rhythm Ecg Trace Only (10/18/17 01:07) Lipid Panel (10/19/17 06:00) Aspirin Chewable Tablet (Baby Aspirin Ch (10/18/17 01:15) Nitroglycerin 0.4 Mg Btl 25's (Nitrostat (10/18/17 01:15) BNP (10/18/17 01:07) Ns Iv 1000 Ml (Sodium Chloride 0.9%) (10/18/17 01:07) Albuterol/Ipra Inhalation Soln (Duoneb I (10/18/17 01:15) O2 (10/18/17 01:07) Saline Lock/Iv-Start (10/18/17 01:07) Svn Sm Volume Nebulizer Rt-Rfs (10/18/17 01:07) Medications Given in ED Current Medications Medications Dose Ordered Sig/Nick Route Start Time Stop Time Status Last Admin Dose Admin Albuterol/ Ipratropium 3 ml ONCE ONCE INH 10/18/17 01:15 10/18/17 01:16 DC 10/18/17 01:16 3 ML Aspirin 324 mg ONCE ONCE PO 10/18/17 01:15 10/18/17 01:16 DC 10/18/17 01:15 324 MG Nitroglycerin 0.4 mg UD PRN SL 10/18/17 01:15 10/18/17 01:16 0.4 MG Sodium Chloride 1,000 ml @ 0 mls/hr Q0M ONCE IV 10/18/17 01:07 10/18/17 01:11 DC 10/18/17 01:15 1,000 MLS/HR Vital Signs/I&O Vital Sign - Last 12Hours 10/18/17 10/18/17 00:50 01:16 Temp 98.3 Pulse 85 Resp 29 B/P (MAP) 147/97 (114) Pulse Ox 97 96 O2 Delivery Room Air Room Air Progress Note : Time: 02:34 Progress Note Discussed the plan of care to do an observation stay and serial troponins, EKG and follow-up with a probation and patrol agent in the morning and the patient says he would prefer to go AMA. We discussed also treating him with steroids and the patient says that steroids in him do not mix because they make him feel wired so we have offered him a lower dose. He is not having any evidence of infection so azithromycin probably is not necessary at this time. He says he has plenty of albuterol for his nebulizer at home. We will allow the patient to go AMA with follow-up with cardiology in the next day or so which she agrees to call their office and set up an appointment as well as follow up with his primary care physician before the end of the week. We will utilize 20 mg of prednisone daily since he's had problems with steroid side effects in the past. ECG Initial ECG Impression Date: Oct 18, 2017 Initial ECG Impression Time: 01:01 Initial ECG Rate: 83 Initial ECG Rhythm: Normal Sinus Initial ECG Intervals: Normal Initial ECG Impression: Normal, Nonspecific Changes Comment No ST segment elevation or depression Diagnostic Imaging Diagonstic Imaging: Xray Comments No acute cardiopulmonary processes noted. Consults Consults : Consulting Physician: DERRICK GLASS MD Consults Notes Discussed case lab imaging findings with cardiology and he recommends an observation stay for rule out and consultation with cardiology in the morning. He is okay with starting steroids. Departure Impression Impression: Primary Impression: Chest pain Qualified Codes: R07.9 - Chest pain, unspecified Additional Impression: COPD with exacerbation Disposition: Condition: Against Medical Advice Departure-Patient Inst. Decision time for Depature: 02:36 Referrals: YUMIKO MICHEL MD (PCP) Primary Care Physician [facility] (Family) Primary Care Physician Patient Instructions: Chest Pain (DC), Chronic Obstructive Pulmonary Disease ( COPD), Including Emphysema Add. Discharge Instructions: If you continue have worsening chest pain or new symptoms please return to the ER. Take your albuterol by small-volume nebulizer every 6 hours [id number] for the next couple days and use it every 4 hours if needed for shortness of breath or wheezing. occupational health nurse manager the prednisone and take one tablet daily for the next 5 days. Follow up with your primary care physician by the end of the week if possible for your COPD exacerbation. Tomorrow morning call Dr. Chin At his office at [phone] and requests an appointment within the next 48 hours to continue your chest pain workup at the clinic. Scripts Prednisone (Prednisone) 20 Mg Tab 20 MG PO DAILY for 5 Days, #5 TAB 0 Refills Prov: ROSAURA ABRAHAM 10/18/17 Copy Copies To 1: ELEAZAR REARDON DO; DERRICK GLASS MD Copies To 2: Zia CHIN MD, TITUS J Oct 18, 2017 01:14
[2017-10-18] MEDS ORDERED: RT-ALBUTEROL/IPRATROPIUM 3 ML (DUONEB) VIAL INH ONE (01:15)
[2017-10-18] MEDS ORDERED: NITROGLYCERIN 0.4 MG SL TABS BTL 25'S SL PRN (01:15)
[2017-10-18] MEDS ORDERED: ASPIRIN 81 MG CHEW (CHILDREN'S ASA) PO ONE (01:15)
--- OUTSIDE RECORDS SUMMARY | 2017-10-18 01:16 | XMS REPORT ---
Author Author ARCHANA KAYLYNN Organization [facility] Address [address] [place] [address] Care Team Providers Care Oleo Hasher And Renderer Name Role Phone KAYLYNN MAGAÑA Unavailable PROBLEMS Type Condition ICD9-CM Code BIT12-BT Code Onset Dates Condition Status SNOMED Code Problem Pain in right shoulder M25.511 Active 03171138 Problem Gastroesophageal reflux disease, esophagitis presence not specified K21.9 Active 628040412 Problem Edema, unspecified type R60.9 Active 756997633 Problem Oxygen desaturation during sleep G47.34 Active 668832833 Problem COPD (chronic obstructive pulmonary disease) J44.9 Active 76606628 Problem Sleep apnea due to high altitude G47.31 Active 28898520 Problem Tobacco abuse Z72.0 Active 22853502 Problem Generalized osteoarthritis M15.9 Active 073159650 Problem Gastroesophageal reflux disease without esophagitis K21.9 Active 865720406 Problem Tear of right rotator cuff, unspecified tear extent M75.101 Active 876934497 Problem 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 Active 909215647 Problem Anxiety F41.9 Active 12185754 Problem BPH (benign prostatic hyperplasia) N40.0 Active 192844453 Problem LEROY (generalized anxiety disorder) F41.1 Active 62402375 Problem Chronic pain G89.29 Active 55740569 Problem Seizures R56.9 Active 33757803 Problem Hypercholesterolemia E78.00 Active 25612080 Problem Environmental allergies Z91.09 Active 203022644 Problem Major depressive disorder, recurrent episode F33.9 Active 465385341 Problem Other chronic pain G89.29 Active 69859807 Problem Irritable bladder N32.89 Active 831199284 Problem Scabies B86 Active 999793813 ALLERGIES Unknown Allergies SOCIAL HISTORY No smoking Hx information available PLAN OF CARE VITAL SIGNS MEDICATIONS Medication Instructions Dosage Frequency Start Date End Date Duration Status Percocet 10-325 MG Orally 3 times a day 1 tablet as needed 8h Jul, Aug, 28 days Active Alprazolam 0.5 MG Orally 2 times a day 1 tablet 12h Jul, 28 days Active RESULTS No Results PROCEDURES No Known procedures IMMUNIZATIONS No Known Immunizations
--- OUTSIDE RECORDS SUMMARY | 2017-10-18 01:16 | XMS REPORT ---
Author Author JUAN BOLANOS [facility] Address [address] [place] [address] Care Team Providers Care Associate Project Manager Name Role Phone JUAN BOLANOS Unavailable PROBLEMS Type Condition ICD9-CM Code SEY58-YR Code Onset Dates Condition Status SNOMED Code Problem Pain in right shoulder M25.511 Active 70737893 Problem Gastroesophageal reflux disease, esophagitis presence not specified K21.9 Active 437577774 Problem Edema, unspecified type R60.9 Active 008710834 Problem Oxygen desaturation during sleep G47.34 Active 108149875 Problem COPD (chronic obstructive pulmonary disease) J44.9 Active 00378836 Problem Sleep apnea due to high altitude G47.31 Active 38592351 Problem Tobacco abuse Z72.0 Active 71634190 Problem Generalized osteoarthritis M15.9 Active 506954457 Problem Gastroesophageal reflux disease without esophagitis K21.9 Active 042438842 Problem Tear of right rotator cuff, unspecified tear extent M75.101 Active 498058726 Problem 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 Active 610982114 Problem Anxiety F41.9 Active 49961766 Problem BPH (benign prostatic hyperplasia) N40.0 Active 275667120 Problem LEROY (generalized anxiety disorder) F41.1 Active 36128186 Problem Chronic pain G89.29 Active 32186002 Problem Seizures R56.9 Active 26760311 Problem Hypercholesterolemia E78.00 Active 77160056 Problem Environmental allergies Z91.09 Active 710817923 Problem Major depressive disorder, recurrent episode F33.9 Active 208321903 Problem Other chronic pain G89.29 Active 94618119 Problem Irritable bladder N32.89 Active 108762788 Problem Scabies B86 Active 660513389 ALLERGIES Substance Reaction Event Type Date Status Ultracet headache, "blindness" Drug Allergy November, Active Prozac "stops my heart" Drug Allergy November, Active Codeine Sulfate agitation Drug Allergy November, Active SOCIAL HISTORY Never Assessed PLAN OF CARE Activity Details Future/Pending Procedure SUTURE REMOVAL VITAL SIGNS Height 67.5 in 2016-12-09 Weight 164.7 lbs 2016-12-09 Temperature 97.6 degrees Fahrenheit 2016-12-09 Heart Rate 88 bpm 2016-12-09 Respiratory Rate 22 2016-12-09 BMI 25.41 kg/m2 2016-12-09 Blood pressure systolic 112 mmHg 2016-12-09 Blood pressure diastolic 74 mmHg 2016-12-09 MEDICATIONS Medication Instructions Dosage Frequency Start Date End Date Duration Status Omeprazole 20 mg Orally 2 times a day 1 capsule 12h Active Lipitor 20 mg Orally Once a day 1 tablet 24h Active Tylenol 325 MG Orally every 6 hrs 2 tablets as needed 6h Active VESIcare 5 mg Orally Once a day 1 tablet 24h 30 days Active Abilify 10 mg Orally Once in the morning 1 tablet Active Keppra 500 mg Orally every 12 hrs 1 tab 12h Oct, Active Albuterol Sulfate (2.5 MG/3ML) 0.083% Inhalation 4 times a day 3 ml 6h Oct, Active Cymbalta 60 mg Orally Once a day 1 capsule 24h Active Albuterol Sulfate HFA 108 (90 Base) MCG/ACT Inhalation every 4 hrs 2 puffs as needed 4h Active Trazodone HCl 100 mg Orally Once a day 1 tablet at bedtime 24h Oct, 30 day(s) Active Alprazolam 0.5 MG Orally 2 times a day prn 1 tablet Jul, 28 days Active Benadryl Allergy 25 MG Orally every 6 hrs 1 tablet as needed 6h Active Nebulizer Active Flonase Allergy Relief 50 MCG/ACT Nasally 2 times a day 1-2 spray in each nostril 12h Active Fish Oil 1000 MG Orally Once a day 3 capsule 24h Active Percocet 10-325 MG Orally 3 times a day 1 tablet as needed 8h November, 28 days Active RESULTS No Results PROCEDURES Procedure Date Ordered Result Body Site REMOV SUTS; NOT WHO CLOS WND December 09, 2016 [facility] VISIT ESTABLISHED PATIENT December 09, 2016 IMMUNIZATIONS No Known Immunizations MEDICAL (GENERAL) [...]
--- OUTSIDE RECORDS SUMMARY | 2017-10-18 01:18 | XMS REPORT ---
Author Author MARGARITA PANTOJA Organization [facility] Address [address] [place] [address] Care Team Providers Care Afterschool Babysitter Name Role Phone SCARLETT MARGARITA Unavailable PROBLEMS Type Condition ICD9-CM Code [id number] Code Onset Dates Condition Status SNOMED Code Problem Pain in right shoulder M25.511 Active 79058836 Problem Gastroesophageal reflux disease, esophagitis presence not specified K21.9 Active 819756348 Problem Edema, unspecified type R60.9 Active 692932540 Problem Oxygen desaturation during sleep G47.34 Active 577590709 Problem COPD (chronic obstructive pulmonary disease) J44.9 Active 65760673 Problem Sleep apnea due to high altitude G47.31 Active 60389518 Problem Tobacco abuse Z72.0 Active 57340471 Problem Generalized osteoarthritis M15.9 Active 842718884 Problem Gastroesophageal reflux disease without esophagitis K21.9 Active 763721224 Problem Tear of right rotator cuff, unspecified tear extent M75.101 Active 276716501 Problem 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 Active 617785971 Problem Anxiety F41.9 Active 62483615 Problem BPH (benign prostatic hyperplasia) N40.0 Active 101204517 Problem LEROY (generalized anxiety disorder) F41.1 Active 37641496 Problem Chronic pain G89.29 Active 37190036 Problem Seizures R56.9 Active 86510064 Problem Hypercholesterolemia E78.00 Active 83737648 Problem Environmental allergies Z91.09 Active 733809229 Problem Major depressive disorder, recurrent episode F33.9 Active 098932112 Problem Other chronic pain G89.29 Active 41122689 Problem Irritable bladder N32.89 Active 175601549 Problem Scabies B86 Active 081037389 ALLERGIES No Information SOCIAL HISTORY Never Assessed [...]
[2017-10-18 01:19] LABS: BASOPHILS % (AUTO) 0 % (0-10); EOSINOPHILS # (AUTO) 0.2 10^3/uL (0.0-0.3); EOSINOPHILS % (AUTO) 1 % (0-10); HEMATOCRIT 46 % (40-54); HEMOGLOBIN 15.6 G/DL (13.3-17.7); LYMPHOCYTES # (AUTO) 3.4 X 10^3 (1.0-4.0); LYMPHOCYTES % (AUTO) 30 % (12-44); MEAN CORPUSCULAR HEMOGLOBIN 30 PG (25-34); MEAN CORPUSCULAR HGB CONC 34 G/DL (32-36); MEAN CORPUSCULAR VOLUME 88 FL (80-99); MEAN PLATELET VOLUME 9.7 FL (7.4-10.4); MONOCYTES % (AUTO) 9 % (0-12); NEUTROPHILS # (AUTO) 6.8 X 10^3 (1.8-7.8); NEUTROPHILS % (AUTO) 60 % (42-75); PLATELET COUNT 314 10^3/uL (130-400); RED BLOOD COUNT 5.18 10^6/uL (4.35-5.85); RED CELL DISTRIBUTION WIDTH 14.7 % (10.0-14.5); WHITE BLOOD COUNT 11.3 10^3/uL (4.3-11.0)
--- OUTSIDE RECORDS SUMMARY | 2017-10-18 01:22 | XMS REPORT ---
Author Author ARCHANA KAYLYNN Organization [facility] Address [address] [place] [address] Care Team Providers Care Bindery Operator Name Role Phone KAYLYNN MAGAÑA Unavailable PROBLEMS Type Condition ICD9-CM Code QPL34-JO Code Onset Dates Condition Status SNOMED Code Problem Pain in right shoulder M25.511 Active 93793937 Problem Gastroesophageal reflux disease, esophagitis presence not specified K21.9 Active 687129505 Problem Edema, unspecified type R60.9 Active 692915211 Problem Oxygen desaturation during sleep G47.34 Active 412541358 Problem COPD (chronic obstructive pulmonary disease) J44.9 Active 70272016 Problem Sleep apnea due to high altitude G47.31 Active 88690146 Problem Tobacco abuse Z72.0 Active 62228391 Problem Generalized osteoarthritis M15.9 Active 807581096 Problem Gastroesophageal reflux disease without esophagitis K21.9 Active 077183285 Problem Tear of right rotator cuff, unspecified tear extent M75.101 Active 242642736 Problem 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 Active 537805411 Problem Anxiety F41.9 Active 30174169 Problem BPH (benign prostatic hyperplasia) N40.0 Active 784059270 Problem LEROY (generalized anxiety disorder) F41.1 Active 77700990 Problem Chronic pain G89.29 Active 27698120 Problem Seizures R56.9 Active 99063795 Problem Hypercholesterolemia E78.00 Active 18224397 Problem Environmental allergies Z91.09 Active 395231155 Problem Major depressive disorder, recurrent episode F33.9 Active 855761803 Problem Other chronic pain G89.29 Active 77888116 Problem Irritable bladder N32.89 Active 863045706 Problem Scabies B86 Active 841514005 ALLERGIES No Information SOCIAL HISTORY Never Assessed [...]
[2017-10-18 01:25] LABS: INR 1.1 (0.8-1.4); PROTHROMBIN TIME PATIENT 13.8 SEC (12.2-14.7)
--- OUTSIDE RECORDS SUMMARY | 2017-10-18 01:28 | XMS REPORT ---
Author Author ARCHANA KAYLYNN Organization [facility] Address [address] [place] [address] Care Team Providers Care Engineering Program Analyst Name Role Phone HARDIK MAGAÑAE Unavailable PROBLEMS Type Condition ICD9-CM Code HZD93-GG Code Onset Dates Condition Status SNOMED Code Problem Pain in right shoulder M25.511 Active 60278234 Problem Gastroesophageal reflux disease, esophagitis presence not specified K21.9 Active 157957604 Problem Edema, unspecified type R60.9 Active 859721127 Problem Oxygen desaturation during sleep G47.34 Active 490833476 Problem COPD (chronic obstructive pulmonary disease) J44.9 Active 70444615 Problem Sleep apnea due to high altitude G47.31 Active 89284585 Problem Tobacco abuse Z72.0 Active 41109727 Problem Generalized osteoarthritis M15.9 Active 011133843 Problem Gastroesophageal reflux disease without esophagitis K21.9 Active 704739510 Problem Tear of right rotator cuff, unspecified tear extent M75.101 Active 166318236 Problem 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 Active 705998928 Problem Anxiety F41.9 Active 60217886 Problem BPH (benign prostatic hyperplasia) N40.0 Active 655515657 Problem LEROY (generalized anxiety disorder) F41.1 Active 29702336 Problem Chronic pain G89.29 Active 85840533 Problem Seizures R56.9 Active 96954654 Problem Hypercholesterolemia E78.00 Active 67524975 Problem Environmental allergies Z91.09 Active 026691365 Problem Major depressive disorder, recurrent episode F33.9 Active 572849243 Problem Other chronic pain G89.29 Active 89166116 Problem Irritable bladder N32.89 Active 209571814 Problem Scabies B86 Active 520109903 ALLERGIES No Information SOCIAL HISTORY Never Assessed PLAN OF CARE VITAL SIGNS MEDICATIONS Medication Instructions Dosage Frequency Start Date End Date Duration Status Alprazolam 0.5 MG Orally 2 times a day prn 1 tablet Jul, 28 days Active Percocet 10-325 MG Orally 3 times a day 1 tablet as needed 8h Dec, 28 days Active RESULTS No Results PROCEDURES [...]
--- OUTSIDE RECORDS SUMMARY | 2017-10-18 01:28 | XMS REPORT ---
Author Author MADIE ELLIOTT [facility] Address [address] [place] [address] Care Team Providers Care Radar Technician Name Role Phone MADIE ELLIOTT Unavailable PROBLEMS Type Condition ICD9-CM Code CEN65-UO Code Onset Dates Condition Status SNOMED Code Problem Pain in right shoulder M25.511 Active 27577633 Problem Gastroesophageal reflux disease, esophagitis presence not specified K21.9 Active 865774195 Problem Edema, unspecified type R60.9 Active 217304914 Problem Oxygen desaturation during sleep G47.34 Active 789762685 Problem COPD (chronic obstructive pulmonary disease) J44.9 Active 45429123 Problem Sleep apnea due to high altitude G47.31 Active 04574159 Problem Tobacco abuse Z72.0 Active 17037621 Problem Generalized osteoarthritis M15.9 Active 478569216 Problem Gastroesophageal reflux disease without esophagitis K21.9 Active 022916626 Problem Tear of right rotator cuff, unspecified tear extent M75.101 Active 610621883 Problem 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 Active 464198286 Problem Anxiety F41.9 Active 44285369 Problem BPH (benign prostatic hyperplasia) N40.0 Active 513955080 Problem LEROY (generalized anxiety disorder) F41.1 Active 26612382 Problem Chronic pain G89.29 Active 93008383 Problem Seizures R56.9 Active 33407565 Problem Hypercholesterolemia E78.00 Active 53403920 Problem Environmental allergies Z91.09 Active 716034693 Problem Major depressive disorder, recurrent episode F33.9 Active 476663261 Problem Other chronic pain G89.29 Active 39442470 Problem Irritable bladder N32.89 Active 562109985 Problem Scabies B86 Active 073326652 ALLERGIES No Information SOCIAL HISTORY Never Assessed PLAN OF CARE Activity Details Follow Up after MRI Reason: VITAL SIGNS MEDICATIONS Unknown Medications RESULTS Name Result Date Reference Range MRI : Shoulder, Right 2016-09-16 PROCEDURES Procedure Date Ordered Result Body Site [facility] VISIT ESTABLISHED PATIENT Sep 08, 2016 IMMUNIZATIONS No Known Immunizations [...]
--- OUTSIDE RECORDS SUMMARY | 2017-10-18 01:30 | XMS REPORT ---
Author Author KAYLYNN Rabago Organization [facility] Address [address] [place] [address] Care Team Providers Care Ground Water Contractor Name Role Phone Hima KAYLYNN Unavailable PROBLEMS Type Condition ICD9-CM Code TMC33-BR Code Onset Dates Condition Status SNOMED Code Problem Generalized osteoarthritis M15.9 Active 599259065 Problem LEROY (generalized anxiety disorder) F41.1 Active 04114539 Problem BPH (benign prostatic hyperplasia) N40.0 Active 636971407 Problem COPD (chronic obstructive pulmonary disease) J44.9 Active 95782245 Problem Tobacco abuse Z72.0 Active 64482148 Problem Chronic pain G89.29 Active 01314030 Problem Seizures R56.9 Active 43695205 Problem Post traumatic seizure disorder R56.1 Active 46633053 Problem Gastroesophageal reflux disease, esophagitis presence not specified K21.9 Active 783661752 Problem Irritable bladder N32.89 Active 038587747 Problem Major depressive disorder, recurrent episode F33.9 Active 889030104 Problem Environmental allergies Z91.09 Active 799274220 Problem Hypercholesterolemia E78.00 Active 66944931 ALLERGIES No Information ENCOUNTERS Encounter Location Date Diagnosis [facility] [id number] [place] [address] 56013- 6763 Sep, Chronic pain G89.29 ; COPD (chronic obstructive pulmonary disease) J44.9 ; Major depressive disorder, recurrent episode F33.9 ; Post traumatic seizure disorder R56.1 and Hypercholesterolemia E78.00 [facility] [id number] [place] [address] 74773- 3657 Sep, Chronic pain G89.29 [facility] [id number] [place] [address] 65500- 7164 Aug, Major depressive disorder, recurrent episode F33.9 and Gastroesophageal reflux disease, esophagitis presence not specified K21.9 [facility] [id number] [place] [address] 20201- 8000 Aug, Chronic pain G89.29 [facility] [id number] [place] [address] 56597- 1996 Jul, Other chronic pain G89.29 and Anxiety F41.9 [facility] [address] 93018- 2846 Jun, Chronic pain G89.29 and Seizures R56.9 [facility] [id number] [place] [address] 11409- 6216 Jun, Other chronic pain G89.29 and Anxiety F41.9 [facility] [id number] [place] [address] 67690- 9996 May, COPD (chronic obstructive pulmonary disease) J44.9 [facility] [address] 80126- 2862 May, Other chronic pain G89.29 and Anxiety F41.9 [facility] [id number] [place] [address] 64223- 3066 Apr, Other chronic pain G89.29 and Anxiety F41.9 [facility] [id number] [place] [address] 15027- 1078 Mar, Anxiety F41.9 and Other chronic pain G89.29 [facility] [id number] [place] [address] 02083- 3620 Feb, [facility] [id number] [place] [address] 83633- 6725 Feb, Anxiety F41.9 and Other chronic pain G89.29 [facility] [id number] [place] [address] 20479- 3172 Feb, [facility] [id number] [place] [address] 20925- 2992 16 Aug, 2017 COPD (chronic obstructive pulmonary disease) J44.9 ; Sleep apnea due to high altitude G47.31 and Oxygen desaturation during sleep G47.34 [facility] [id number] [place] [address] 94226- 7463 Jan, Other chronic pain G89.29 and Anxiety F41.9 [facility] [id number] [place] [address] 21478- 3513 Jan, [facility] [id number] [place] [address] 78673- 9796 Dec, Anxiety F41.9 and Other chronic pain G89.29 [facility] [address] 29122- 8952 Dec, [facility] [id number] [place] [address] 64944- 8326 Dec, [facility] [id number] [place] [address] 07211- 4425 Dec, Seizures R56.9 ; Chronic pain G89.29 ; BPH (benign prostatic hyperplasia) N40.0 ; Tobacco abuse Z72.0 ; Major depressive disorder, recurrent episode F33.9 ; LEROY (generalized anxiety disorder) F41.1 ; Environmental allergies Z91.09 ; Other chronic pain G89.29 ; Anxiety F41.9 ; Irritable bladder N32.89 ; Hypercholesterolemia E78.00 ; Gastroesophageal reflux disease, esophagitis presence not specified K21.9 and COPD (chronic obstructive pulmonary disease) J44.9 [facility] [id number] [place] [address] 04193- 7019 Dec, [facility] [id number] [place] [address] 07679- 2755 Dec, [facility] [id number] [place] [address] 80945- 2326 Dec, Generalized osteoarthritis M15.9 and Anxiety F41.9 [facility] [id number] [place] [address] 46682- 4151 November, Status post shoulder surgery Z98.890 [facility] [id number] [place] [address] 71270- 7131 November, Generalized osteoarthritis M15.9 and Anxiety F41.9 [facility] [id number] [place] [address] 09984- 2851 Oct, [facility] [id number] [place] [address] 26937- 2595 Oct, Bilateral hearing loss, unspecified hearing loss type H91.93 ; Vision changes H53.9 ; Seizures R56.9 ; Tobacco abuse Z72.0 ; Major depressive disorder, recurrent episode F33.9 ; Irritable bladder N32.89 ; Gastroesophageal reflux disease, esophagitis presence not specified K21.9 ; Tear of right rotator cuff, unspecified tear extent M75.101 ; Generalized osteoarthritis M15.9 ; BPH (benign prostatic hyperplasia) N40.0 ; Hypercholesterolemia E78.00 ; 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 ; Anxiety F41.9 and Environmental allergies Z91.09 [facility] [id number] [place] [address] 64492- 7349 Oct, Chronic pain G89.29 and LEROY (generalized anxiety disorder) F41.1 [facility] [id number] [place] [address] 14234- 0879 Sep, [facility] [id number] [place] [address] 33394- 8395 Sep, Tear of right rotator cuff, unspecified tear extent M75.101 ; Seizures R56.9 ; BPH (benign prostatic hyperplasia) N40.0 ; Major depressive disorder, recurrent episode F33.9 ; Environmental allergies Z91.09 ; Hypercholesterolemia E78.00 ; Chronic pain G89.29 ; Irritable bladder N32.89 ; LEROY (generalized anxiety disorder) F41.1 ; Gastroesophageal reflux disease without esophagitis K21.9 ; COPD (chronic obstructive pulmonary disease) J44.9 and Hearing reduced, bilateral H91.93 [facility] [id number] [place] [address] 94090- 5430 Sep, LEROY (generalized anxiety disorder) F41.1 [facility] [id number] [place] [address] 53409- 2380 Aug, [facility] [address] 36734- 9916 Aug, Tear of right rotator cuff, unspecified tear extent M75.101 [facility] [address] 88941- 0336 Aug, Seizures R56.9 ; Chronic pain G89.29 ; Generalized osteoarthritis M15.9 ; COPD (chronic obstructive pulmonary disease) J44.9 ; LEROY (generalized anxiety disorder) F41.1 ; Gastroesophageal reflux disease, esophagitis presence not specified K21.9 ; Scabies B86 ; Hypercholesterolemia E78.00 ; Irritable bladder N32.89 and Edema, unspecified type R60.9 [facility] [id number] [place] [address] 77807- 2458 Jul, Major depressive disorder, recurrent episode F33.9 [facility] [place] [id number] [place] [address] 97662- 4288 Jul, Seizures R56.9 ; Hypercholesterolemia E78.00 ; BPH (benign prostatic hyperplasia) N40.0 ; Major depressive disorder, recurrent episode F33.9 and Edema, unspecified type R60.9 [facility] [id number] [place] [address] 84595- 7034 Jul, Chronic pain G89.29 and LEROY (generalized anxiety disorder) F41.1 [facility] [id number] [place] [address] 70191- 6661 Jul, Seizures R56.9 ; COPD (chronic obstructive pulmonary disease ) J44.9 ; Chronic pain G89.29 ; BPH (benign prostatic hyperplasia) N40.0 ; Generalized osteoarthritis M15.9 ; Major depressive disorder, recurrent episode F33.9 ; LEROY (generalized anxiety disorder) F41.1 ; Hypercholesterolemia E78.00 ; Scabies B86 ; Edema, unspecified type R60.9 ; Environmental allergies Z91.09 ; Gastroesophageal reflux disease, esophagitis presence not specified K21.9 ; Pain in right shoulder M25.511 and Other chronic pain G89.29 [facility] [id number] [place] [address] 14879- 3447 Jun, [facility] [id number] [place] [address] 25584- 5952 May, [facility] [address] 53010- 7321 Apr, [facility] [address] 29366- 8201 Apr, Seizures R56.9 ; COPD (chronic obstructive pulmonary disease ) J44.9 ; BPH (benign prostatic hyperplasia) N40.0 ; Chronic pain G89.29 ; Tobacco abuse Z72.0 ; LEROY (generalized anxiety disorder) F41.1 ; Environmental allergies Z91.09 ; Irritable bladder N32.89 and Hypercholesterolemia E78.00 [facility] [id number] [place] [address] 46563- 0123 Mar, [facility] [address] 39133- 6731 Mar, [facility] [id number] [place] [address] 78439- 8941 Mar, [facility] [id number] [place] [address] 91248- 8944 Mar, [facility] [id number] [place] [address] 67803- 1880 Feb, [facility] [id number] [place] [address] 26329- 2310 Feb, Chronic pain G89.29 [facility] [id number] [place] [address] 38168- 2859 Feb, [facility] [id number] [place] [address] 16773- 3655 Jan, [facility] [id number] [place] [address] 97219- 7838 Dec, [facility] [id number] [place] [address] 57606- 8732 Dec, [facility] [id number] [place] [address] 67386- 7820 Dec, Seizures R56.9 ; COPD (chronic obstructive pulmonary disease ) J44.9 ; Chronic pain G89.29 ; BPH (benign prostatic hyperplasia) N40.0 ; Generalized osteoarthritis M15.9 ; Hypercholesterolemia E78.0 ; Overactive bladder N32.81 ; Insomnia, unspecified type G47.00 ; Other depression F32.8 ; Environmental allergies Z91.09 and Gastroesophageal reflux disease, esophagitis presence not specified K21.9 [facility] [id number] [place] [address] 69426- 9456 November, Chronic pain due to trauma G89.21 and Anxiety F41.9 [facility] [id number] [place] [address] 59651- 1867 Oct, [facility] [id number] [place] [address] 52644- 6725 Sep, [facility] [id number] [place] [address] 92801- 2003 Sep, [facility] [id number] [place] [address] 03675- 0418 Sep, [facility] [id number] [place] [address] 57568- 8934 Sep, Seizures R56.9 ; Major depressive disorder, recurrent episode F33.9 and LEROY (generalized anxiety disorder) F41.1 [facility] [id number] [place] [address] 91728- 1061 Aug, [facility] [id number] [place] [address] 55880- 4046 Aug, COPD (chronic obstructive pulmonary disease) J44.9 ; Chronic pain G89.29 ; BPH (benign prostatic hyperplasia) N40.0 ; Tobacco abuse Z72.0 ; Generalized osteoarthritis M15.9 ; Seizures R56.9 ; Overactive bladder N32.81 ; Depression F32.9 and Anxiety F41.9 [facility] [id number] [place] [address] 21832- 5578 Jul, Essential (primary) hypertension I10 ; Pure hypercholesterolemia E78.0 ; Generalized osteoarthrosis, unspecified site 715.00 and 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 Z79.899 [facility] [id number] [place] [address] 36066- 0877 Jul, [facility] [address] 65144- 6446 Jul, [facility] [address] 73742- 1150 Jun, [facility] [address] 89163- 5024 May, [facility] [id number] [place] [address] 89002- 9591 Apr, [facility] [address] 78139- 4235 Apr, Seizures R56.9 ; COPD (chronic obstructive pulmonary disease ) J44.9 ; Chronic pain G89.29 ; BPH (benign prostatic hyperplasia) N40.0 ; Tobacco abuse Z72.0 ; Generalized osteoarthritis M15.9 ; Insomnia G47.00 ; Anxiety F41.9 and GERD (gastroesophageal reflux disease) K21.9 [facility] [id number] [place] [address] 54362- 0937 Apr, [facility] [address] 09114- 3775 Mar, [facility] [id number] [place] [address] 80390- 7732 Feb, Major depression, recurrent 296.30 and Generalized anxiety disorder 300.02 [facility] [id number] [place] [address] 61691- 0962 Feb, [facility] [id number] [place] [address] 92075- 7568 Feb, [facility] [id number] [place] [address] 58176- 6972 Jan, Chronic pain due to injury 338.21 ; Seizures 780.39 ; COPD ( chronic obstructive pulmonary disease) 496 ; BPH (benign prostatic hyperplasia) 600.00 ; Tobacco use disorder 305.1 ; Generalized osteoarthrosis, unspecified site 715.00 ; Anxiety 300.00 ; GERD (gastroesophageal reflux disease) 530.81 and Hypercholesteremia 272.0 [facility] [id number] [place] [address] 95881- 3093 Jan, [facility] [address] 60269- 4855 Jan, [facility] [id number] [place] [address] 68997- 1264 Jan, [facility] [id number] [place] [address] 01155- 3020 Jan, Seizures 780.39 ; COPD (chronic obstructive pulmonary disease) 496 ; Chronic pain due to injury 338.21 ; BPH (benign prostatic hyperplasia) 600.00 ; Tobacco use disorder 305.1 ; Generalized osteoarthrosis, unspecified site 715.00 ; Encounter for long-term (current) use of other medications V58.69 ; GERD (gastroesophageal reflux disease) 530.81 ; Hypercholesteremia 272.0 and Depression 311 [facility] [id number] [place] [address] 40985- 7570 Jan, [facility] [id number] [place] [address] 90085- 2997 Jan, Chronic pain due to injury 338.21 [facility] [id number] [place] [address] 36378- 6469 Dec, [facility] [address] [facility] [id number] [place] [address]- 7463 Dec, Seizures 780.39 ; COPD (chronic obstructive pulmonary disease) 496 ; Chronic pain due to injury 338.21 ; Environmental allergies V15.09 ; GERD (gastroesophageal reflux disease) 530.81 ; Essential hypertension 401.9 ; Psoriasis 696.1 ; PTSD (post-traumatic stress disorder) 309.81 and Depression (emotion) 311 IMMUNIZATIONS No Known Immunizations SOCIAL HISTORY Never Assessed REASON FOR VISIT Refill request PLAN OF CARE VITAL SIGNS MEDICATIONS No Known Medications RESULTS No Results PROCEDURES No Known procedures INSTRUCTIONS MEDICATIONS ADMINISTERED No Known Medications MEDICAL (GENERAL) HISTORY Type Description Date Medical [...]
--- OUTSIDE RECORDS SUMMARY | 2017-10-18 01:38 | XMS REPORT ---
Author Author ARCHANA KAYLYNN Organization [facility] Address [address] [place] [address] Care Team Providers Care Staffing Program Manager Name Role Phone KAYLYNN MAGAÑA Unavailable PROBLEMS Type Condition ICD9-CM Code TRG71-TC Code Onset Dates Condition Status SNOMED Code Problem Pain in right shoulder M25.511 Active 99752670 Problem Gastroesophageal reflux disease, esophagitis presence not specified K21.9 Active 099592319 Problem Edema, unspecified type R60.9 Active 740781953 Problem Oxygen desaturation during sleep G47.34 Active 914227588 Problem COPD (chronic obstructive pulmonary disease) J44.9 Active 41318671 Problem Sleep apnea due to high altitude G47.31 Active 42674697 Problem Tobacco abuse Z72.0 Active 03384689 Problem Generalized osteoarthritis M15.9 Active 710049361 Problem Gastroesophageal reflux disease without esophagitis K21.9 Active 939069903 Problem Tear of right rotator cuff, unspecified tear extent M75.101 Active 027121833 Problem 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 Active 339006949 Problem Anxiety F41.9 Active 17334700 Problem BPH (benign prostatic hyperplasia) N40.0 Active 180908939 Problem LEROY (generalized anxiety disorder) F41.1 Active 15838091 Problem Chronic pain G89.29 Active 76950854 Problem Seizures R56.9 Active 85532291 Problem Hypercholesterolemia E78.00 Active 42907682 Problem Environmental allergies Z91.09 Active 862014699 Problem Major depressive disorder, recurrent episode F33.9 Active 382177025 Problem Other chronic pain G89.29 Active 88634302 Problem Irritable bladder N32.89 Active 332616512 Problem Scabies B86 Active 549490240 ALLERGIES Substance Reaction Event Type Date Status Ultracet headache, "blindness" Drug Allergy Sep, Active Prozac "stops my heart" Drug Allergy Sep, Active Codeine Sulfate agitation Drug Allergy Sep, Active SOCIAL HISTORY Never Assessed PLAN OF CARE Activity Details Follow Up 3 Months Reason:seizures tear of right rotator cuff VITAL SIGNS Height 67.5 in 2016-10-06 Weight 168.0 lbs 2016-10-06 Temperature 98.2 degrees Fahrenheit 2016-10-06 Heart Rate 96 bpm 2016-10-06 Respiratory Rate 20 2016-10-06 BMI 25.92 kg/m2 2016-10-06 Blood pressure systolic 134 mmHg 2016-10-06 Blood pressure diastolic 87 mmHg 2016-10-06 MEDICATIONS Medication Instructions Dosage Frequency Start Date End Date Duration Status Cymbalta 60 mg Orally Once a day 1 capsule 24h Active Albuterol Sulfate HFA 108 (90 Base) MCG/ACT Inhalation every 4 hrs 2 puffs as needed 4h Active Alprazolam 0.5 MG Orally 2 times a day prn 1 tablet Jul, 28 days Active Percocet 10-325 MG Orally 3 times a day 1 tablet as needed 8h Sep, 28 days Active VESIcare 5 mg Orally Once a day 1 tablet 24h 30 days Active Nebulizer Active Lipitor 20 mg Orally Once a day 1 tablet 24h Active Abilify 10 mg Orally Once in the morning 1 tablet Active Omeprazole 20 mg Orally 2 times a day 1 capsule 12h Active Albuterol Sulfate (2.5 MG/3ML) 0.083% Inhalation Four times a day prn 3 ml Active Keppra 500 mg Orally every 12 hrs one tablet 12h Aug, 30 days Active Flonase Allergy Relief 50 MCG/ACT Nasally 2 times a day 1-2 spray in each nostril 12h Active Tylenol 325 MG Orally every 6 hrs 2 tablets as needed 6h Active Benadryl Allergy 25 MG Orally every 6 hrs 1 tablet as needed 6h Active Trazodone HCl 300 MG Orally at bedtime 1 tablet Active Fish Oil 1000 MG Orally Once a day 3 capsule 24h Active RESULTS Name Result Date Reference Range VALPROIC ACID/DEPAKOTE 2016-10-06 Valproic Acid (Depakote)(R),S <4 50-100 PROCEDURES Procedure Date Ordered Result Body Site [facility] VISIT ESTABLISHED PATIENT October 06, 2016 VENIPUNCT, ROUTINE* October 06, 2016 LAB NOT BILLED BY [facility] October 06, 2016 IMMUNIZATIONS No Known Immunizations MEDICAL (GENERAL) [...]
--- OUTSIDE RECORDS SUMMARY | 2017-10-18 01:40 | XMS REPORT ---
Author Author ARCHANA KAYLYNN Organization [facility] Address [address] [place] [address] Care Team Providers Care Security Nurse Name Role Phone KAYLYNN MAGAÑA Unavailable PROBLEMS Type Condition ICD9-CM Code [id number] Code Onset Dates Condition Status SNOMED Code Problem Pain in right shoulder M25.511 Active 43984868 Problem Gastroesophageal reflux disease, esophagitis presence not specified K21.9 Active 201970050 Problem Edema, unspecified type R60.9 Active 128242470 Problem Oxygen desaturation during sleep G47.34 Active 645923501 Problem COPD (chronic obstructive pulmonary disease) J44.9 Active 03603699 Problem Sleep apnea due to high altitude G47.31 Active 87887949 Problem Tobacco abuse Z72.0 Active 59797815 Problem Generalized osteoarthritis M15.9 Active 024675156 Problem Gastroesophageal reflux disease without esophagitis K21.9 Active 531218828 Problem Tear of right rotator cuff, unspecified tear extent M75.101 Active 814567936 Problem 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 Active 181357651 Problem Anxiety F41.9 Active 02476459 Problem BPH (benign prostatic hyperplasia) N40.0 Active 280696191 Problem LEROY (generalized anxiety disorder) F41.1 Active 23257244 Problem Chronic pain G89.29 Active 64808948 Problem Seizures R56.9 Active 20281241 Problem Hypercholesterolemia E78.00 Active 51825380 Problem Environmental allergies Z91.09 Active 011619035 Problem Major depressive disorder, recurrent episode F33.9 Active 042494674 Problem Other chronic pain G89.29 Active 30486362 Problem Irritable bladder N32.89 Active 588006910 Problem Scabies B86 Active 478815772 ALLERGIES Substance Reaction Event Type Date Status Ultracet headache, "blindness" Drug Allergy Dec, Active Prozac "stops my heart" Drug Allergy Dec, Active Codeine Sulfate agitation Drug Allergy Dec, Active SOCIAL HISTORY Never Assessed PLAN OF CARE Activity Details Follow Up 3 Months Reason:ch VITAL SIGNS Height 67.5 in 2017-01-03 Weight 167 lbs 2017-01-03 Respiratory Rate 18 2017-01-03 BMI 25.77 kg/m2 2017-01-03 Blood pressure systolic 110 mmHg 2017-01-03 Blood pressure diastolic 72 mmHg 2017-01-03 MEDICATIONS Medication Instructions Dosage Frequency Start Date End Date Duration Status Cymbalta 60 mg Orally Once a day 1 capsule 24h Active Omeprazole 20 mg Orally 2 times a day 1 capsule 12h Active Alprazolam 0.5 MG Orally 2 times a day prn 1 tablet Jul, Active Percocet 10-325 MG Orally 3 times a day 1 tablet as needed 8h Dec, Active Keppra 500 mg Orally every 12 hrs 1 tab 12h Oct, Active VESIcare 5 mg Orally Once a day 1 tablet 24h 30 days Active Fish Oil 1000 MG Orally Once a day 3 capsule 24h Active Albuterol Sulfate (2.5 MG/3ML) 0.083% Inhalation 4 times a day 3 ml 6h Oct, Active Abilify 10 mg Orally Once in the morning 1 tablet Active Lipitor 20 mg Orally Once a day 1 tablet 24h Active Tylenol 325 MG Orally every 6 hrs 2 tablets as needed 6h Active Trazodone HCl 100 mg Orally Once a day 1 tablet at bedtime 24h Oct, 30 day(s) Active Flonase Allergy Relief 50 MCG/ACT Nasally 2 times a day 1-2 spray in each nostril 12h Active Nebulizer Active Albuterol Sulfate HFA cfc free 90 mcg/inh Inhalation every 4 hrs 2 puffs as needed 4h Active Benadryl Allergy 25 MG Orally every 6 hrs 1 tablet as needed 6h Active RESULTS No Results PROCEDURES Procedure Date Ordered Result Body Site [facility] VISIT ESTABLISHED PATIENT January 03, 2017 IMMUNIZATIONS No Known Immunizations MEDICAL (GENERAL) HISTORY [...]
--- OUTSIDE RECORDS SUMMARY | 2017-10-18 01:40 | XMS REPORT ---
Author Author ARCHANA KAYLYNN Organization [facility] Address [address] [place] [address] Care Team Providers Care Dehydrogenation Supervisor Name Role Phone KAYLYNN MAGAÑA Unavailable PROBLEMS Type Condition ICD9-CM Code [id number] Code Onset Dates Condition Status SNOMED Code Problem Pain in right shoulder M25.511 Active 20363251 Problem Gastroesophageal reflux disease, esophagitis presence not specified K21.9 Active 298364471 Problem Edema, unspecified type R60.9 Active 346996889 Problem Oxygen desaturation during sleep G47.34 Active 735010588 Problem COPD (chronic obstructive pulmonary disease) J44.9 Active 84803589 Problem Sleep apnea due to high altitude G47.31 Active 08024449 Problem Tobacco abuse Z72.0 Active 04514234 Problem Generalized osteoarthritis M15.9 Active 022207194 Problem Gastroesophageal reflux disease without esophagitis K21.9 Active 336431561 Problem Tear of right rotator cuff, unspecified tear extent M75.101 Active 049653096 Problem 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 Active 010535787 Problem Anxiety F41.9 Active 85981683 Problem BPH (benign prostatic hyperplasia) N40.0 Active 085629075 Problem LEROY (generalized anxiety disorder) F41.1 Active 02972268 Problem Chronic pain G89.29 Active 99868417 Problem Seizures R56.9 Active 37557667 Problem Hypercholesterolemia E78.00 Active 82809652 Problem Environmental allergies Z91.09 Active 520812988 Problem Major depressive disorder, recurrent episode F33.9 Active 018875471 Problem Other chronic pain G89.29 Active 88643704 Problem Irritable bladder N32.89 Active 286574526 Problem Scabies B86 Active 634407737 ALLERGIES No Information SOCIAL HISTORY Never Assessed [...]
[2017-10-18 01:41] LABS: ALANINE AMINOTRANSFERASE 37 U/L (0-55); ALBUMIN 4.2 GM/DL (3.2-4.5); ALKALINE PHOSPHATASE 99 U/L (40-136); BILIRUBIN,TOTAL 0.5 MG/DL (0.1-1.0); BUN/CREATININE RATIO 7; CALCIUM 8.7 MG/DL (8.5-10.1); CARBON DIOXIDE 22 MMOL/L (21-32); CHLORIDE 107 MMOL/L (98-107); GFR ESTIMATED > 60; GLUCOSE 155 MG/DL (70-105); MAGNESIUM 2.4 MG/DL (1.8-2.4); POTASSIUM 3.5 MMOL/L (3.6-5.0); SODIUM 139 MMOL/L (135-145); TOTAL PROTEIN 7.3 GM/DL (6.4-8.2)
--- OUTSIDE RECORDS SUMMARY | 2017-10-18 01:41 | XMS REPORT | Continuity of Care Document ---
Demographics x Preferred Language Unknown Marital Status Unknown Zoroastrian Affiliation Unknown Race Unknown Ethnic Group Unknown Author Author [facility] Organization [facility] Address Unknown Phone Unavailable Allergies Active Description Code Type Severity Reaction Onset Reported/Identified Relationship to Patient Clinical Status Yes Codeine 1550 Drug Allergy N/A irritable, hypertension, jittery Yes Prozac 6733 Drug Allergy N/A irregular heart Yes Ultracet 51322 Drug Allergy N/ A Nausea~aggitated~neck and headache Yes codeine Drug Allergy N/A Adverse Reaction 09/22/2013 Yes Prozac Drug Allergy N/A Adverse Reaction 09/22/2013 Yes Ultracet Drug Allergy N/A Adverse Reaction 09/22/2013 Yes PSYCHIATRIC MED X2(UNKNOWN NAMES) PSYCHIATRIC MED X2( UNKNOWN NAMES) Unknown N/A 07/05/2015 Yes acetaminophen [id number] Drug Allergy Unknown N/A 11/23/2016 Yes codeine [id number] Drug Allergy Unknown N/A 11/23/2016 Yes fluoxetine [id number] Drug Allergy Unknown N/A 11/23/2016 Yes morphine [id number] Drug Allergy Unknown couldn't sleep 11/23/2016 Yes tramadol [id number] Drug Allergy Unknown N/A 11/23/2016 Medications There is no data. Problems Date Dx Coded Attending Type Code Diagnosis Diagnosed By 09/22/2013 Be Mckeon MD Final 496 CHRONIC AIRWAY OBSTR NEC 09/22/2013 Be Mckeon MD Final 508.2 RESP COND D/T SMOKE 09/22/2013 Be Mckeon MD Admitting 941.09 BURN NOS HEAD MULT SITES 09/22/2013 Be Mckeon MD Final 941.29 2ND DEG BURN HEAD MULT 09/22/2013 Be Mckeon MD Final 948.00 BDY BURN <10%/3 DEG <10% 09/22/2013 Be Mckeon MD External E894 FIRE-HIGHLY INFLAM MAT 10/19/2013 BENIGNO AVILA 496 CHR AIRWAY OBSTRUCT NEC 10/19/2013 BENIGNO AVILA 724.00 SPINAL STENOSIS NOS 10/19/2013 BENIGNO AVILA 799.02 HYPOXEMIA 10/23/2013 BENIGNO AVILA 496 CHR AIRWAY OBSTRUCT NEC 10/23/2013 BENIGNO AVILA 724.00 SPINAL STENOSIS NOS 10/23/2013 BENIGNO AVILA 799.02 HYPOXEMIA 11/28/2013 DIAMOND STRANGE 041.12 MRSA 11/28/2013 DIAMOND STRANGE 682.2 CELLULITIS OF TRUNK 11/17/2014 BENIGNO AVILA 496 CHR AIRWAY OBSTRUCT NEC 11/17/2014 BENIGNO AVILA 724.00 SPINAL STENOSIS NOS 11/17/2014 BENIGNO AVILA 799.02 HYPOXEMIA 11/20/2014 BENIGNO AVILA 496 CHR AIRWAY OBSTRUCT NEC 11/20/2014 BENIGNO AVILA 724.00 SPINAL STENOSIS NOS 11/20/2014 BENIGNO AVILA 799.02 HYPOXEMIA 07/06/2015 MYRNA ZAPATA Ot F17.210 NICOTINE DEPENDENCE, CIGARETTES, UNCOMPL 07/06/2015 MYRNA ZAPATA Ot J43.9 EMPHYSEMA, UNSPECIFIED 07/06/2015 MYRNA ZAPATA Ot J44.1 CHRONIC OBSTRUCTIVE PULMONARY DISEASE W 07/06/2015 MYRNA ZAPATA Ot N39.0 URINARY TRACT INFECTION, SITE NOT SPECIF 07/06/2015 MYRNA ZAPATA Ot R51 HEADACHE 07/06/2015 MYRNA ZAPATA Ot Z79.899 OTHER METAL GRINDER (CURRENT) DRUG THERAPY 02/03/2016 BILL WATSON APRN Ot F17.210 NICOTINE DEPENDENCE, CIGARETTES, UNCOMPL 02/03/2016 BILL WATSON APRN Ot K52.9 NONINFECTIVE GASTROENTERITIS AND COLITIS 09/19/2016 MADIE ELLIOTT Ot M75.101 UNSP ROTATR-CUFF TEAR/RUPTR OF RIGHT SHMUEL 09/19/2016 MADIE ELLIOTT Ot M75.101 UNSP ROTATR-CUFF TEAR/RUPTR OF RIGHT SHMUEL 10/10/2016 MADIE ELLIOTT Ot M75.101 UNSP ROTATR-CUFF TEAR/RUPTR OF RIGHT SHMUEL 10/14/2016 MADIE ELLIOTT Ot M75.101 UNSP ROTATR-CUFF TEAR/RUPTR OF RIGHT SHMUEL 11/23/2016 ALY CORREA MD, Ot S43.431A SUPERIOR GLENOID LABRUM LESION OF RIGHT 11/23/2016 ALY CORREA MD, Ot Z01.818 ENCOUNTER FOR OTHER PREPROCEDURAL EXAMIN 11/23/2016 ALY CORREA MD Ot Z11.2 ENCOUNTER FOR SCREENING FOR OTHER BACTER 11/29/2016 ALY CORREA MD, Ot S43.431A SUPERIOR GLENOID LABRUM LESION OF RIGHT 11/29/2016 ALY CORREA MD, Ot Z01.818 ENCOUNTER FOR OTHER PREPROCEDURAL EXAMIN 11/29/2016 ALY CORREA MD, Ot Z11.2 ENCOUNTER FOR SCREENING FOR OTHER BACTER 11/30/2016 ALY CORREA MD, Ot E78.5 HYPERLIPIDEMIA, UNSPECIFIED 11/30/2016 ALY CORREA MD, Ot F17.210 NICOTINE DEPENDENCE, CIGARETTES, UNCOMPL 11/30/2016 ALY CORREA MD, Ot F32.9 MAJOR DEPRESSIVE DISORDER, SINGLE EPISOD 11/30/2016 ALY CORREA MD, Ot F41.9 ANXIETY DISORDER, UNSPECIFIED 11/30/2016 ALY CORREA MD, Ot G40.909 EPILEPSY, UNSP, NOT INTRACTABLE, WITHOUT 11/30/2016 ALY CORREA MD, Ot G47.33 OBSTRUCTIVE SLEEP APNEA (ADULT) (PEDIATR 11/30/2016 ALY CORREA MD Ot I10 ESSENTIAL (PRIMARY) HYPERTENSION 11/30/2016 ALY CORREA MD, Ot I25.10 ATHSCL HEART DISEASE OF [place] CORONARY 11/30/2016 ALY CORREA MD Ot I50.9 HEART FAILURE, UNSPECIFIED 11/30/2016 ALY CORREA MD, Ot J30.9 ALLERGIC RHINITIS, UNSPECIFIED 11/30/2016 ALY CORREA MD, Ot J44.9 CHRONIC OBSTRUCTIVE PULMONARY DISEASE, U 11/30/2016 ALY CORREA MD, Ot K21.9 GASTRO-ESOPHAGEAL REFLUX DISEASE WITHOUT 11/30/2016 ALY CORREA MD, Ot M19.90 UNSPECIFIED OSTEOARTHRITIS, UNSPECIFIED 11/30/2016 ALY CORREA MD Ot M75.41 IMPINGEMENT SYNDROME OF RIGHT SHOULDER 11/30/2016 ALY CORREA MD Ot N40.0 BENIGN PROSTATIC HYPERPLASIA WITHOUT LOW 11/30/2016 ALY CORREA MD, Ot S43.431A SUPERIOR GLENOID LABRUM LESION OF RIGHT 11/30/2016 ALY CORREA MD, Ot Z79.899 OTHER METAL GRINDER (CURRENT) DRUG THERAPY 11/30/2016 ALY CORREA MD, Ot Z86.73 PRSNL HX OF TIA (TIA), AND CEREB INFRC W 12/01/2016 ALY CORREA MD, Ot E78.5 HYPERLIPIDEMIA, UNSPECIFIED 12/01/2016 ALY CORREA MD, Ot F17.210 NICOTINE DEPENDENCE, CIGARETTES, UNCOMPL 12/01/2016 ALY CORREA MD, Ot F32.9 MAJOR DEPRESSIVE DISORDER, SINGLE EPISOD 12/01/2016 ALY CORREA MD, Ot F41.9 ANXIETY DISORDER, UNSPECIFIED 12/01/2016 ALY CORREA MD, Ot G40.909 EPILEPSY, UNSP, NOT INTRACTABLE, WITHOUT 12/01/2016 ALY CORREA MD Ot G47.33 OBSTRUCTIVE SLEEP APNEA (ADULT) (PEDIATR 12/01/2016 ALY CORREA MD Ot I10 ESSENTIAL (PRIMARY) HYPERTENSION 12/01/2016 ALY CORRAE MD, Ot I25.10 ATHSCL HEART DISEASE OF [place] CORONARY 12/01/2016 ALY CORREA MD Ot I50.9 HEART FAILURE, UNSPECIFIED 12/01/2016 ALY CORREA MD, Ot J30.9 ALLERGIC RHINITIS, UNSPECIFIED 12/01/2016 ALY CORREA MD, Ot J44.9 CHRONIC OBSTRUCTIVE PULMONARY DISEASE, U 12/01/2016 ALY CORREA MD, Ot K21.9 GASTRO-ESOPHAGEAL REFLUX DISEASE WITHOUT 12/01/2016 ALY CORREA MD Ot M19.90 UNSPECIFIED OSTEOARTHRITIS, UNSPECIFIED 12/01/2016 ALY CORREA MD Ot M75.41 IMPINGEMENT SYNDROME OF RIGHT SHOULDER 12/01/2016 ALY CORREA MD, Ot N40.0 BENIGN PROSTATIC HYPERPLASIA WITHOUT LOW 12/01/2016 ALY CORREA MD, Ot S43.431A SUPERIOR GLENOID LABRUM LESION OF RIGHT 12/01/2016 ALY CORREA MD, Ot Z79.899 OTHER METAL GRINDER (CURRENT) DRUG THERAPY 12/01/2016 ALY CORREA MD, Ot Z86.73 PRSNL HX OF TIA (TIA), AND CEREB INFRC W 12/01/2016 ALY CORREA MD Ot E78.5 HYPERLIPIDEMIA, UNSPECIFIED 12/01/2016 ALY CORREA MD, Ot F17.210 NICOTINE DEPENDENCE, CIGARETTES, UNCOMPL 12/01/2016 ALY CORREA MD Ot F32.9 MAJOR DEPRESSIVE DISORDER, SINGLE EPISOD 12/01/2016 ALY CORREA MD Ot F41.9 ANXIETY DISORDER, UNSPECIFIED 12/01/2016 ALY CORREA MD Ot G40.909 EPILEPSY, UNSP, NOT INTRACTABLE, WITHOUT 12/01/2016 ALY CORREA MD Ot G47.33 OBSTRUCTIVE SLEEP APNEA (ADULT) (PEDIATR 12/01/2016 ALY CORREA MD Ot I10 ESSENTIAL (PRIMARY) HYPERTENSION 12/01/2016 ALY CORREA MD Ot I25.10 ATHSCL HEART DISEASE OF [place] CORONARY 12/01/2016 ALY CORREA MD Ot I50.9 HEART FAILURE, UNSPECIFIED 12/01/2016 ALY CORREA MD Ot J30.9 ALLERGIC RHINITIS, UNSPECIFIED 12/01/2016 ALY CORREA MD Ot J44.9 CHRONIC OBSTRUCTIVE PULMONARY DISEASE, U 12/01/2016 ALY CORREA MD Ot K21.9 GASTRO-ESOPHAGEAL REFLUX DISEASE WITHOUT 12/01/2016 ALY CORREA MD Ot M19.90 UNSPECIFIED OSTEOARTHRITIS, UNSPECIFIED 12/01/2016 ALY CORREA MD Ot M75.41 IMPINGEMENT SYNDROME OF RIGHT SHOULDER 12/01/2016 ALY CORREA MD Ot N40.0 BENIGN PROSTATIC HYPERPLASIA WITHOUT LOW 12/01/2016 ALY CORREA MD Ot S43.431A SUPERIOR GLENOID LABRUM LESION OF RIGHT 12/01/2016 ALY CORREA MD Ot Z79.899 OTHER METAL GRINDER (CURRENT) DRUG THERAPY 12/01/2016 ALY CORREA MD Ot Z86.73 PRSNL HX OF TIA (TIA), AND CEREB INFRC W 12/06/2016 ALY CORREA MD, Ot E78.5 HYPERLIPIDEMIA, UNSPECIFIED 12/06/2016 ALY CORREA MD Ot F17.210 NICOTINE DEPENDENCE, CIGARETTES, UNCOMPL 12/06/2016 ALY CORREA MD Ot F32.9 MAJOR DEPRESSIVE DISORDER, SINGLE EPISOD 12/06/2016 ALY CORREA MD Ot F41.9 ANXIETY DISORDER, UNSPECIFIED 12/06/2016 ALY CORREA MD, Ot G40.909 EPILEPSY, UNSP, NOT INTRACTABLE, WITHOUT 12/06/2016 ALY CORREA MD Ot G47.33 OBSTRUCTIVE SLEEP APNEA (ADULT) (PEDIATR 12/06/2016 ALY CORREA MD Ot I10 ESSENTIAL (PRIMARY) HYPERTENSION 12/06/2016 ALY CORREA MD, Ot I25.10 ATHSCL HEART DISEASE OF [place] CORONARY 12/06/2016 ALY CORREA MD, Ot I50.9 HEART FAILURE, UNSPECIFIED 12/06/2016 ALY CORREA MD, Ot J30.9 ALLERGIC RHINITIS, UNSPECIFIED 12/06/2016 ALY CORREA MD, Ot J44.9 CHRONIC OBSTRUCTIVE PULMONARY DISEASE, U 12/06/2016 ALY CORREA MD, Ot K21.9 GASTRO-ESOPHAGEAL REFLUX DISEASE WITHOUT 12/06/2016 ALY CORREA MD Ot M19.90 UNSPECIFIED OSTEOARTHRITIS, UNSPECIFIED 12/06/2016 ALY CORREA MD Ot M75.41 IMPINGEMENT SYNDROME OF RIGHT SHOULDER 12/06/2016 ALY CORREA MD Ot N40.0 BENIGN PROSTATIC HYPERPLASIA WITHOUT LOW 12/06/2016 ALY CORREA MD Ot S43.431A SUPERIOR GLENOID LABRUM LESION OF RIGHT 12/06/2016 ALY CORREA MD, Ot Z79.899 OTHER METAL GRINDER (CURRENT) DRUG THERAPY 12/06/2016 ALY CORREA MD, Ot Z86.73 PRSNL HX OF TIA (TIA), AND CEREB INFRC W 12/07/2016 ALY CORREA MD Ot E78.5 HYPERLIPIDEMIA, UNSPECIFIED 12/07/2016 ALY CORREA MD Ot F17.210 NICOTINE DEPENDENCE, CIGARETTES, UNCOMPL 12/07/2016 ALY CORREA MD Ot F32.9 MAJOR DEPRESSIVE DISORDER, SINGLE EPISOD 12/07/2016 ALY CORREA MD Ot F41.9 ANXIETY DISORDER, UNSPECIFIED 12/07/2016 ALY CORREA MD Ot G40.909 EPILEPSY, UNSP, NOT INTRACTABLE, WITHOUT 12/07/2016 ALY CORREA MD Ot G47.33 OBSTRUCTIVE SLEEP APNEA (ADULT) (PEDIATR 12/07/2016 ALY CORREA MD, Ot I10 ESSENTIAL (PRIMARY) HYPERTENSION 12/07/2016 ALY CORREA MD, Ot I25.10 ATHSCL HEART DISEASE OF [place] CORONARY 12/07/2016 ALY CORREA MD, Ot I50.9 HEART FAILURE, UNSPECIFIED 12/07/2016 ALY CORREA MD, Ot J30.9 ALLERGIC RHINITIS, UNSPECIFIED 12/07/2016 ALY CORREA MD, Ot J44.9 CHRONIC OBSTRUCTIVE PULMONARY DISEASE, U 12/07/2016 ALY CORREA MD, Ot K21.9 GASTRO-ESOPHAGEAL REFLUX DISEASE WITHOUT 12/07/2016 ALY CORREA MD, Ot M19.90 UNSPECIFIED OSTEOARTHRITIS, UNSPECIFIED 12/07/2016 ALY CORREA MD, Ot M75.41 IMPINGEMENT SYNDROME OF RIGHT SHOULDER 12/07/2016 ALY CORREA MD, Ot N40.0 BENIGN PROSTATIC HYPERPLASIA WITHOUT LOW 12/07/2016 ALY CORREA MD, Ot S43.431A SUPERIOR GLENOID LABRUM LESION OF RIGHT 12/07/2016 ALY CORREA MD, Ot Z79.899 OTHER METAL GRINDER (CURRENT) DRUG THERAPY 12/07/2016 ALY CORREA MD, Ot Z86.73 PRSNL HX OF TIA (TIA), AND CEREB INFRC W 03/21/2017 THEO WEBSTER, COOKIE Kelly Ot F17.210 NICOTINE DEPENDENCE, CIGARETTES, UNCOMPL 03/21/2017 COOKIE VENEGAS MD, Ot F41.9 ANXIETY DISORDER, UNSPECIFIED 03/21/2017 COOKIE VENEGAS MD, Ot F43.10 POST-TRAUMATIC STRESS DISORDER, UNSPECIF 03/21/2017 COOKIE VENEGAS MD, Ot G40.909 EPILEPSY, UNSP, NOT INTRACTABLE, WITHOUT 03/21/2017 COOKIE VENEGAS MD, Ot I10 ESSENTIAL (PRIMARY) HYPERTENSION 03/21/2017 COOKIE VENEGAS MD, Ot I25.2 OLD MYOCARDIAL INFARCTION 03/21/2017 COOKIE VENEGAS MD, Ot J43.9 EMPHYSEMA, UNSPECIFIED 03/21/2017 COOKIE VENEGAS MD, Ot K21.9 GASTRO-ESOPHAGEAL REFLUX DISEASE WITHOUT 03/21/2017 THEO WEBSTER, COOKIE Kelly Ot M19.90 UNSPECIFIED OSTEOARTHRITIS, UNSPECIFIED 03/21/2017 COOKIE VENEGAS MD, Ot M25.511 PAIN IN RIGHT SHOULDER 03/21/2017 THEO WEBSTER, COOKIE Kelly Ot Z86.73 PRSNL HX OF TIA (TIA), AND CEREB INFRC W 03/21/2017 COOKIE VENEGAS MD, Ot Z87.820 PERSONAL HISTORY OF TRAUMATIC BRAIN INJU 03/21/2017 THEO WEBSTER, COOKIE Kelly Ot Z90.89 ACQUIRED ABSENCE OF OTHER ORGANS 03/21/2017 COOKIE VENEGAS MD Ot Z96.652 PRESENCE OF LEFT ARTIFICIAL KNEE JOINT 03/29/2017 MADIE ELLIOTT Ot M75.101 UNSP ROTATR-CUFF TEAR/RUPTR OF RIGHT SHMUEL 04/04/2017 ALY CORREA MD, Ot M19.011 PRIMARY OSTEOARTHRITIS, RIGHT SHOULDER 04/04/2017 ALY CORREA MD Ot S46.111A STRAIN OF MUSC/FASC/TEND LONG HD BICEP, 04/04/2017 ALY CORREA MD Ot X50.9XXA OTHER AND UNSPECIFIED OVREXRTN OR STRNOU 04/04/2017 ALY CORREA MD Ot Y99.8 OTHER EXTERNAL CAUSE STATUS 04/21/2017 ALY CORREA MD Ot M19.011 PRIMARY OSTEOARTHRITIS, RIGHT SHOULDER 04/21/2017 ALY CORREA MD Ot S46.111A STRAIN OF MUSC/FASC/TEND LONG HD BICEP, 04/21/2017 ALY CORREA MD Ot X50.9XXA OTHER AND UNSPECIFIED OVREXRTN OR STRNOU 04/21/2017 ALY CORREA MD Ot Y99.8 OTHER EXTERNAL CAUSE STATUS 04/26/2017 ALY CORREA MD Ot M19.011 PRIMARY OSTEOARTHRITIS, RIGHT SHOULDER 04/26/2017 ALY CORREA MD Ot S46.111A STRAIN OF MUSC/FASC/TEND LONG HD BICEP, 04/26/2017 ALY CORREA MD Ot X50.9XXA OTHER AND UNSPECIFIED OVREXRTN OR STRNOU 04/26/2017 ZAFUTA MD, ALY P Ot Y99.8 OTHER EXTERNAL CAUSE STATUS Procedures Code Description Performed By [facility] Be Mckeon MD 09/22/2013 Results Test Result Range CBC WITH DIFF - 09/22/13 00:00 BASO% 0.1 % 0-2 EOS% 0.5 % 0-7.0 HCT 46.5 % 41.9-52.0 HGB 15.8 G/DL 13.0-18.0 LYMPH% 32.3 % 20-40 MCH 30.5 PG 27-31 MCHC 34.0 G/DL 33-37 MCV 89.8 FL 80-94 MONO% 11.7 % 0-10.0 MPV 10.0 FL 7.3-10.4 NEUTRO% 55.4 % 40-70 PLT 343 10^3u 130-400 RBC 5.2 10^6u 4.7-6.1 RDW 13.7 % 11.5-15.5 WBC 11.0 10^3u 4.8-10.8 NEUTRO# 6.1 10^3u 1.5-7.5 LYMPH# 3.5 10^3u 0.9-4.0 MONO# 1.3 10^3u 0-0.8 EOS# 0.1 10^3u 0-0.6 BASO# 0.0 10^3u 0-0.1 CMP - 09/22/13 00:00 ALB 3.5 G/DL 3.5-5 ALP 140 IU/L 50-136 ALT 35 IU/L 12-65 AST 21 IU/L 10-42 BCR 7.5 10-20 BUN 8 MG/DL 7-18 CA 9.0 MG/DL 8.4-10.2 CL 98 MEQ/L 98-107 CO2 28.9 MEQ/L 22-28 CREA 1.06 MG/DL 0.6-1.3 EGFR 75 eGFR >=60 GLU 161 MG/DL 70-105 K 3.4 MEQ/L 3.5-5.1 NA 139 MEQ/L 134-145 OSMSC 279.3 MOSML 280-300 TBIL 0.5 MG/DL 0.1-1.0 TP 7.4 G/DL 6.0-8.3 Albumin/Globulin Ratio 0.9 0-8 Anion Gap 12.1 8-16 UA - 09/22/13 00:00 PH 6.5 4.5-8.0 SG 1.010 1.003-1.035 UABILI NEGATIVE UABLD NEGATIVE UACOLOR YEL UAGLU TRACE UAKET NEGATIVE UALEUK NEGATIVE UANIT NEGATIVE UAURO 0.2 0-0.2 CLARITY CL PROTEIN TRACE UA WBC R05 UA RBC NORBC SQUAMOUS EPITHELIAL CELLS FEW MUCOUS 2+ CBC WITH DIFF - 10/19/13 00:00 BASO% 0.2 % 0-2 EOS% 0.8 % 0-7.0 HCT 39.8 % 41.9-52.0 HGB 13.5 G/DL 13.0-18.0 LYMPH% 39.9 % 20-40 MCH 29.8 PG 27-31 MCHC 33.9 G/DL 33-37 MCV 87.9 FL 80-94 MONO% 12.0 % 0-10.0 MPV 10.0 FL 7.3-10.4 NEUTRO% 47.1 % 40-70 PLT 289 10^3u 130-400 RBC 4.5 10^6u 4.7-6.1 RDW 13.3 % 11.5-15.5 WBC 8.7 10^3u 4.8-10.8 NEUTRO# 4.1 10^3u 1.5-7.5 LYMPH# 3.5 10^3u 0.9-4.0 MONO# 1.1 10^3u 0-0.8 EOS# 0.1 10^3u 0-0.6 BASO# 0.0 10^3u 0-0.1 CMP - 10/19/13 00:00 ALB 3.5 G/DL 3.5-5 ALP 100 IU/L 50-136 ALT 19 IU/L 12-65 AST 15 IU/L 10-42 BCR 6.9 10-20 BUN 9 MG/DL 7-18 CA 8.4 MG/DL 8.4-10.2 CL 98 MEQ/L 98-107 CO2 28.6 MEQ/L 22-28 CREA 1.30 MG/DL 0.6-1.3 EGFR 59 eGFR >=60 GLU 103 MG/DL 70-105 K 3.7 MEQ/L 3.5-5.1 NA 138 MEQ/L 134-145 OSMSC 274.6 MOSML 280-300 TBIL 0.2 MG/DL 0.1-1.0 TP 6.9 G/DL 6.0-8.3 Albumin/Globulin Ratio 1.0 0-8 Anion Gap 11.4 8-16 TROP - 10/19/13 00:00 TROP < 0.04 NG/ML 0.0-0.4 LACTIC ACID - 10/19/13 00:00 LA 2.7 MMOLL 0.4-2.0 UA - 10/19/13 00:00 PH 7.0 4.5-8.0 SG 1.025 1.003-1.035 UABILI NEGATIVE UABLD NEGATIVE UACOLOR YEL UAGLU NEGATIVE UAKET NEGATIVE UALEUK NEGATIVE UANIT NEGATIVE UAURO 0.2 0-0.2 CLARITY CL PROTEIN NEGATIVE UA WBC R05 UA RBC R05 SQUAMOUS EPITHELIAL CELLS FEW MUCOUS OCC TROP - 10/19/13 00:00 TROP < 0.04 NG/ML 0.0-0.4 CBC WITH DIFF - 10/19/13 00:00 BASO% 0.3 % 0-2 EOS% 1.5 % 0-7.0 HCT 37.4 % 41.9-52.0 HGB 12.5 G/DL 13.0-18.0 LYMPH% 45.4 % 20-40 MCH 29.8 PG 27-31 MCHC 33.4 G/DL 33-37 MCV 89.0 FL 80-94 MONO% 11.4 % 0-10.0 MPV 10.5 FL 7.3-10.4 NEUTRO% 41.4 % 40-70 PLT 215 10^3u 130-400 RBC 4.2 10^6u 4.7-6.1 RDW 13.3 % 11.5-15.5 WBC 7.5 10^3u 4.8-10.8 NEUTRO# 3.1 10^3u 1.5-7.5 LYMPH# 3.4 10^3u 0.9-4.0 MONO# 0.9 10^3u 0-0.8 EOS# 0.1 10^3u 0-0.6 BASO# 0.0 10^3u 0-0.1 TROP - 10/19/13 00:00 TROP < 0.04 NG/ML 0.0-0.4 BMP - 10/20/13 00:00 BCR 3.0 10-20 BUN 3 MG/DL 7-18 CA 8.1 MG/DL 8.4-10.2 CL 104 MEQ/L 98-107 CO2 30.3 MEQ/L 22-28 CREA 1.00 MG/DL 0.6-1.3 EGFR 80 eGFR >=60 GLU 124 MG/DL 70-105 K 4.2 MEQ/L 3.5-5.1 NA 141 MEQ/L 134-145 OSMSC 279.2 MOSML 280-300 Anion Gap 6.7 8-16 CBC WITH DIFF - 10/20/13 00:00 BASO% 0.2 % 0-2 EOS% 1.3 % 0-7.0 HCT 37.4 % 41.9-52.0 HGB 12.3 G/DL 13.0-18.0 LYMPH% 34.5 % 20-40 MCH 29.4 PG 27-31 MCHC 32.9 G/DL 33-37 MCV 89.3 FL 80-94 MONO% 13.4 % 0-10.0 MPV 9.9 FL 7.3-10.4 NEUTRO% 50.6 % 40-70 PLT 251 10^3u 130-400 RBC 4.2 10^6u 4.7-6.1 RDW 13.9 % 11.5-15.5 WBC 8.2 10^3u 4.8-10.8 NEUTRO# 4.2 10^3u 1.5-7.5 LYMPH# 2.8 10^3u 0.9-4.0 MONO# 1.1 10^3u 0-0.8 EOS# 0.1 10^3u 0-0.6 BASO# 0.0 10^3u 0-0.1 VANCOT - 10/20/13 00:00 VANCOT 13.0 UG/ML 10- LACTIC ACID - 10/20/13 00:00 LA 2.1 MMOLL 0.4-2.0 CBC With Differential/Platelet - 05/18/16 11:00 WBC 9.6 x10E3/uL 3.4-10.8 RBC 5.21 x10E6/uL 4.14-5.80 Hemoglobin 15.8 g/dL 12.6-17.7 Hematocrit 46.5 % 37.5-51.0 MCV 89 fL 79-97 MCH 30.3 pg 26.6-33.0 MCHC 34.0 g/dL 31.5-35.7 RDW 13.5 % 12.3-15.4 Platelets 336 x10E3/uL 150-379 Neutrophils 50 % Lymphs 38 % Monocytes 9 % Eos 3 % Basos 0 % Neutrophils (Absolute) 4.8 x10E3/uL 1.4-7.0 Lymphs (Absolute) 3.7 x10E3/uL 0.7-3.1 Monocytes(Absolute) 0.8 x10E3/uL 0.1-0.9 Eos (Absolute) 0.3 x10E3/uL 0.0-0.4 Baso (Absolute) 0.0 x10E3/uL 0.0-0.2 Immature Granulocytes 0 % Immature Grans (Abs) 0.0 x10E3/uL 0.0-0.1 Comp. Metabolic Panel (14) - 05/18/16 11:00 Glucose, Serum 87 mg/dL 65-99 BUN 9 mg/dL 6-24 Creatinine, Serum 0.78 mg/dL 0.76-1.27 eGFR If NonAfricn Am 105 mL/min/1.73 >59 eGFR If Africn Am 122 mL/min/1.73 >59 BUN/Creatinine Ratio 12 9-20 Sodium, Serum 140 mmol/L 136-144 Potassium, Serum 4.4 mmol/L 3.5-5.2 Chloride, Serum 99 mmol/L 97-106 Carbon Dioxide, Total 23 mmol/L 18-29 Calcium, Serum 9.4 mg/dL 8.7-10.2 Protein, Total, Serum 6.4 g/dL 6.0-8.5 Albumin, Serum 4.3 g/dL 3.5-5.5 Globulin, Total 2.1 g/dL 1.5-4.5 A/G Ratio 2.0 1.1-2.5 Bilirubin, Total 0.3 mg/dL 0.0-1.2 Alkaline Phosphatase, S 100 IU/L 39-117 AST (SGOT) 15 IU/L 0-40 ALT (SGPT) 19 IU/L 0-44 Lipid Panel - 05/18/16 11:00 Cholesterol, Total 218 mg/dL 100-199 Triglycerides 362 mg/dL 0-149 HDL Cholesterol 29 mg/dL >39 VLDL Cholesterol Apollo 72 mg/dL 5-40 LDL Cholesterol Calc 117 mg/dL 0-99 Prostate-Specific Ag, Serum - 05/18/16 11:00 Prostate Specific Ag, Serum 1.2 ng/mL 0.0-4.0 Valproic Acid (Depakote)(R),S - 05/18/16 11:00 Valproic Acid (Depakote),S 5 ug/mL 50-100 Valproic Acid (Depakote)(R),S - 10/06/16 10:33 Valproic Acid (Depakote),S <4 ug/mL 50-100 Methicillin resistant Staphylococcus aureus (MRSA) screening culture - 09:42 Methicillin resistant Staphylococcus aureus (MRSA) screening culture NEG NRG PDM - OPIATES W/ GROUPING - 10/10/17 11:34 Prescribed Drug 1 Percocet(TM) NRG COMMENT NRG Prescribed Drug 2 Alprazolam NRG Prescribed Drug 3 Alprazolam NRG Codeine NEGATIVE ng/mL <50 medMATCH Codeine CONSISTENT NRG Hydrocodone NEGATIVE ng/mL <50 medMATCH Hydrocodone CONSISTENT NRG Hydromorphone NEGATIVE ng/mL <50 medMATCH Hydromorphone CONSISTENT NRG Morphine NEGATIVE ng/mL <50 medMATCH Morphine CONSISTENT NRG Norhydrocodone NEGATIVE ng/mL <50 medMATCH Norhydrocodone CONSISTENT NRG Noroxycodone 1585 ng/mL <50 medMATCH Noroxycodone CONSISTENT NRG Oxycodone 2743 ng/mL <50 medMATCH Oxycodone CONSISTENT NRG Oxymorphone 2674 ng/mL <50 medMATCH Oxymorphone CONSISTENT NRG Encounters ACCT No. Visit Date/Time Discharge Status Pt. Type Provider Facility Loc./Unit Complaint [id number] 11/25/2014 10:09:00 11/25/2014 23:59:59 CLS Outpatient DIAMOND STRANGE [facility] [id number] 10/29/2014 00:01:00 11/09/2014 12:30:00 DIS Outpatient BENIGNO AVILA [facility] DME [id number] 09/28/2014 00:01:00 10/28/2014 23:59:00 DIS Outpatient BENIGNO AVILA [facility] [id number] 07/31/2014 00:01:00 07/31/2014 23:59:59 CLS Outpatient BENIGNO AVILA [facility] DME [id number] 06/30/2014 00:01:00 07/30/2014 23:59:00 DIS Outpatient BENIGNO AVILA [facility] DME [id number] 05/31/2014 00:01:00 06/29/2014 23:59:00 DIS Outpatient BENIGNO AVILA [facility] DME [id number] 04/30/2014 00:01:00 05/30/2014 23:59:00 DIS Outpatient BENIGNO AVILA [facility] DME [id number] 03/31/2014 00:01:00 04/29/2014 23:59:00 DIS Outpatient BENIGNO AVILA [facility] DME [id number] 02/28/2014 00:01:00 03/30/2014 23:59:00 DIS Outpatient BENIGNO AVILA [facility] DME [id number] 12/29/2013 00:01:00 12/29/2013 23:59:59 CLS Outpatient BENIGNO AVILA [facility] DME [id number] 11/28/2013 00:01:00 12/28/2013 23:59:00 DIS Outpatient BENIGNO AVILA [facility] DME [id number] 10/29/2013 00:01:00 11/27/2013 23:59:00 DIS Outpatient BENIGNO AVILA [facility] DME [id number] 10/29/2013 00:01:00 11/27/2013 23:59:00 DIS Outpatient ALIE DIAMOND [facility] OBS [id number] 10/23/2013 16:10:00 10/28/2013 23:59:00 DIS Outpatient ALIE DIAMOND [facility] OBS [id number] 09/28/2013 00:01:00 10/28/2013 23:59:00 DIS Outpatient AUSTINBENIGNO [facility] DME [id number] 10/19/2013 02:27:00 10/23/2013 12:00:00 DIS Inpatient JAVAN MURPHY [facility] 2F [id number] 10/19/2013 02:27:00 10/19/2013 02:27:00 DIS Emergency SINTIA MENG [facility] EMR [id number] 10/19/2013 00:10:00 10/19/2013 00:10:00 DIS Outpatient SINTIA MENG [facility] EMR [id number] 08/31/2013 00:01:00 09/27/2013 23:59:00 DIS Outpatient BENIGNO AVILA [facility] [id number] 09/22/2013 15:41:00 09/22/2013 16:30:00 DIS Emergency DIAMOND STRANGE [facility] EMR [id number] 10/19/2013 02:25:41 Document Registration [id number] 06/29/2013 00:00:00 Document Registration [id number] 06/29/2013 00:00:00 Document Registration [id number] 03/31/2017 07:59:00 03/31/2017 23:59:59 CLS Outpatient ALY CORREA MD [facility] RAD RTC RIGHT [id number] 03/21/2017 17:33:00 03/21/2017 19:03:00 DIS Emergency COOKIE VENEGAS MD [facility] ER RT SHOULDER PAIN [id number] 11/30/2016 06:00:00 11/30/2016 10:37:00 DIS Outpatient ALY CORREA MD [facility] SDC SUPERIOR GLENOID LABRUM LESION RIGHT SHOULDER [id number] 11/23/2016 09:09:00 11/23/2016 09:45:00 DIS Outpatient ALY CORREA MD [facility] PREOP SUPERIOR GLENOID LABUM LESION RT SHOULDER [id number] 09/16/2016 09:39:00 09/16/2016 23:59:59 CLS Outpatient MADIE ELLIOTT [facility] RAD TEAR OF RIGHT ROTATOR CUFF [id number] 02/03/2016 16:46:00 02/03/2016 19:14:00 DIS Emergency BILL WATSON APRN [facility] ER DIARRHEA [id number] 07/05/2015 20:54:00 07/06/2015 00:57:00 DIS Emergency ROSS GRACIA, MYRNA Griffiths [facility] ER DIZZINESS,COUGHING [id number] 05/19/2016 10:05:00 Document Registration [id number] 11/25/2014 10:10:43 ACT Document Registration [id number] 09/22/2013 17:38:00 09/24/2013 17:20:00 DIS Inpatient Linda WEBSTER, Be Barr [facility] on [address] [id number] 10/07/2016 07:06:00 Document Registration [id number] 10/10/2017 11:00:00 10/10/2017 23:59:59 CLS [facility]U [facility] [id number] 10/10/2017 11:00:00 Document Registration
[2017-10-18 01:48] LABS: MYOGLOBIN SERUM 33.5 NG/ML (10.0-92.0)
[2017-10-18] MEDS ORDERED: PRD20T PO (02:38)
[2017-10-18] MEDS ORDERED: predniSONE 20 MG TAB PO ONE (02:45)
--- NOTE | 2017-10-18 06:13 | Diagnostic Imaging Report ---
Indication: Chest pain Portable chest 1:45 AM Heart size and pulmonary vascular normal. Lungs are clear. There are no effusions or pneumothoraces. Impression: Negative chest Dictated by: Dictated on workstation # [id number]
== END 2017-10-18 02:50 | disposition other institution (70) ==
LOC: EDUNIT# 00:45 → ER 00:47
DX: R07.2 Precordial pain (principal); J44.1 Chronic obstructive pulmonary disease with (acute) exacerbation; E78.00 Pure hypercholesterolemia, unspecified; I25.10 Atherosclerotic heart disease of native coronary artery without angina pectoris; I25.2 Old myocardial infarction; I10 Essential (primary) hypertension; G40.909 Epilepsy, unspecified, not intractable, without status epilepticus; K21.9 Gastro-esophageal reflux disease without esophagitis; F41.9 Anxiety disorder, unspecified; F43.10 Post-traumatic stress disorder, unspecified; F17.210 Nicotine dependence, cigarettes, uncomplicated; Z88.5 Allergy status to narcotic agent; Z90.89 Acquired absence of other organs; Z86.73 Personal history of transient ischemic attack (TIA), and cerebral infarction without residual deficits; Z87.820 Personal history of traumatic brain injury; Z88.6 Allergy status to analgesic agent; Z88.8 Allergy status to other drugs, medicaments and biological substances; Z79.51 Long term (current) use of inhaled steroids; Z79.52 Long term (current) use of systemic steroids
CPT/HCPCS: 36415; 71045; 80053; 83735; 83874; 83880; 84484; 85025; 85610; 85730; 93005; 93041; 94640; 96360

== ENCOUNTER 2017-10-26 11:31 | Day surgery (SDC) | payer MEDICARE, MEDICAID ==
[~2017-10-26] VITALS: Ht 172.7 cm; Wt 76.2 kg
[2017-10-26] VITALS (10 sets, daily range): BP systolic 97–155; BP diastolic 52–97
[2017-10-26] MEDS ORDERED: NS IV 1000 ML 1,000 ML ONE (11:36)
[2017-10-26] MEDS ORDERED: HEParin (CATH LAB) 2,000 ML IV ONE (11:36)
[2017-10-26] MEDS ORDERED: NS IV 1000 ML 1,000 ML IV SCH ×2 (11:43→14:32)
[2017-10-26 12:06] LABS: MEAN PLATELET VOLUME 9.2 FL (7.4-10.4); RED BLOOD COUNT 5.31 10^6/uL (4.35-5.85); RED CELL DISTRIBUTION WIDTH 14.6 % (10.0-14.5); WHITE BLOOD COUNT 11.1 10^3/uL (4.3-11.0)
[2017-10-26 12:16] LABS: INR 1.1 (0.8-1.4)
[2017-10-26 12:25] LABS: ALANINE AMINOTRANSFERASE 45 U/L (0-55); ALBUMIN 4.3 GM/DL (3.2-4.5); ALKALINE PHOSPHATASE 93 U/L (40-136); BILIRUBIN,TOTAL 0.9 MG/DL (0.1-1.0); BUN/CREATININE RATIO 11; CALCIUM 9.1 MG/DL (8.5-10.1); CARBON DIOXIDE 28 MMOL/L (21-32); CHLORIDE 104 MMOL/L (98-107); CHOLESTEROL 220 MG/DL (< 200); GFR ESTIMATED > 60; GLUCOSE 101 MG/DL (70-105); HDL CHOLESTEROL 43 MG/DL (40-60); POTASSIUM 4.1 MMOL/L (3.6-5.0); SODIUM 137 MMOL/L (135-145); TOTAL PROTEIN 7.2 GM/DL (6.4-8.2); TRIGLYCERIDES 226 MG/DL (<150); VLDL CHOLESTEROL 45 MG/DL (5-40)
[2017-10-26] MEDS ORDERED: FLUT9.9S NS ×2 (12:48→13:06)
[2017-10-26] MEDS ORDERED: ATOR20TA66 PO (12:49)
[2017-10-26] MEDS ORDERED: DULO30CA48 PO (12:51)
[2017-10-26] MEDS ORDERED: LEVE500T6 PO (12:51)
[2017-10-26] MEDS ORDERED: ALPR0.5T7 PO (12:53)
[2017-10-26] MEDS ORDERED: OXYC-465 PO (13:05)
[2017-10-26] MEDS ORDERED: INFLUENZA TRIvalent 2017-2018 0.5 ML/45 MCG SYR IM ONE (13:30)
[2017-10-26] MEDS ORDERED: fentaNYL INJECTION 100 MCG/2 ML AMP ONE (13:46)
[2017-10-26] MEDS ORDERED: HEParin 1000 UNIT/ML (10ML VIAL) FOR BOLUS ONE (13:46)
[2017-10-26] MEDS ORDERED: NITRO DRIP 25000 MCG/D5W 250 ML IV ONE (13:46)
[2017-10-26] MEDS ORDERED: MIDAZOLAM 5 MG/5 ML (VERSED) VIAL ONE (13:46)
[2017-10-26] MEDS ORDERED: VERAPAMIL 5 MG/2 ML (CALAN) VIAL IV ONE (13:46)
[2017-10-26] MEDS ORDERED: LIDOCAINE 1% INJ 50 ML (XYLOCAINE) VIAL ONE (13:48)
--- NOTE | 2017-10-26 13:55 | Cardiac Procedure Note-CS/ASA ---
Pre-Procedure Note Pre-Op Procedure Note H&P Reviewed The H&P was reviewed, patient examined and no changes noted. Date H&P Reviewed: Oct 26, 2017 Time H&P Reviewed: 13:54 Conscious Sedation Pre-Proced Time Reviewed: 13:54 ASA Class: 3 Airway Mallampati Classification: (mcgrath appropriate class) I. II. III, IV Lungs Heart ASA score ASA 1: a normal healthy patient ASA 2: a patient with a mild systemic disease (mid diabetes, controlled hypertension, obesity ASA 3: a patient with a severe systemic disease that limits activity (angina , COPD, prior Myocardial infarction) ASA 4: a patient with an incapacitating disease that is a constant threat to life (CHF, renal failure) ASA 5: a moribund patient not expected to survive 24 hrs. (ruptured aneurysm) ASA 6: a declared brain patient whose organs are being harvested. For emergent operations, add the letter E after the classification Grade 1 Sedation Plan: Analgesia, Amnesia, Plan communicated to team members, Discussed options with patient/fam, Discussed risks with patient/fam Note The patient is an appropriate candidate to undergo the planned procedure, sedation, and anesthesia. The patient immediately re-assessed prior to indication. Zia MONTOYA MD Oct 26, 2017 1:54 pm
--- NOTE | 2017-10-26 14:31 | Coronary Angiography Report ---
Coronary Angiography Report DATE OF PROCEDURE: 10/26/17 INDICATION: recurrent chest pain, refractory to medical therapy. PREOPERATIVE DIAGNOSIS: chest pain, refractory to medical therapy. POSTOPERATIVE DIAGNOSIS: patent epicardial coronary arteries. HISTORY: this is a 52-year-old gentleman with significant risk factors for CAD. He presents with prolonged episode of chest pain which was negative to aggressive anti-anginal therapy in the ER. Therefore, the patient was scheduled for coronary angiography. PROCEDURES PERFORMED: 1.Coronary angiography. 2.Left heart catheterization. COMPLICATIONS: None. SPECIMENS: None. ESTIMATED BLOOD LOSS: 10 mL ANESTHESIA: Conscious sedation ANTICOAGULATION: IV heparin CONTRAST: 59 mL. FLUOROSCOPY: 5.2 minutes. FLOUROSCOPY DOSE: 192 mgy. PROCEDURE DETAILS: The patient is a 52 male and was brought to the labor representative after informed consent was taken. All the risks and complications were explained in detail; this included the risk of bleeding, vascular damage, stroke , [place] and even . The patient was draped and prepped in the usual sterile fashion. Access was gained in the right radial artery with a 6 [place] sheath. Coronary angiography and left heart catheterization was performed with the Selmer catheter. right coronary artery was engaged with a JR4 catheter. FINDINGS: 1.Left main: patent. 2.LAD: patent. 3.Left circumflex artery: patent. 4.RCA: patent. 5.Left heart catheterization: LV pressure 103/8 mmHg. LVEDP 13 mmHg. Aortic pressure 87/64 mmHg. Normal LV function with no wall motion abnormalities. No gradient across the aortic valve. CONCLUSIONS: patent epicardial coronary arteries. May Chin MD, FACP, FACC, [facility] Interventional Cardiology Zia CHIN MD Oct 26, 2017 2:31 pm
[2017-10-26] MEDS ORDERED: ATOR20TA49 PO (14:33)
--- NOTE | 2017-10-26 14:34 | Discharge Inst-Post CATH ---
Discharge Inst-CATH Post Cardiac Cath D/C Inst Follow Up/Plan Dr. Chin in 2 weeks. CARDIAC CATH DISCHARGE INSTRUCTIONS *Hold Metformin for 48 hours post heart cath. ACTIVITY * Go Home directly and rest. * Limit activity of the leg (or wrist if it was used) for 7 days including aerobics, swimming, jogging, bicycling, etc. * Restrict stair-climbing for 7 days if possible, if not, climb up with your non -cath leg, then bring together on the same step. * Avoid lifting, pushing, pulling or excessive movement of the affected extremity for 7 days. * Customary sexual activity may be resumed after 2 days-use caution not to use a position that strains or causes pain to the affected extremity. * No driving for 24 hours. * NO SMOKING. * Avoid straining for bowel movements for 7 days. * Gentle walking on level ground is allowed. * Returning to work will depend on the type of procedure and the results. Your doctor will discuss this with you. CALL YOUR DOCTOR FOR ANY OF THE FOLLOWING: *If bleeding from the puncture site occurs- Apply gentle pressure to site with clean cloth and call your doctor or EMS. * If a knot or lump forms under the skin, increases in size, or causes pain. * If bruising appears to be worsening or moving further down your leg instead of disappearing. * Temperature above 101 F. CARE OF YOUR GROIN INCISION; * Bruising or purple discoloration of the skin near the puncture site is common. * You may shower only, no bathtub bathing for 5 days. Be careful to avoid slipping as your leg may feel stiff. * If a closure device was used on your femoral artery, please see the attached guide regarding care of the device and your leg. * REMOVE the dressing from your groin the next day after your procedure in the shower. CARE OF YOUR WRIST INCISION; * Bruising or purple discoloration of the skin near the puncture site is common. * You may shower. * DO NOT submerge wrist. * Remove dressing in 24 hours. Zia CHIN MD Oct 26, 2017 2:34 pm
--- NOTE | 2017-10-26 14:36 | Cardiology Discharge Summary ---
Diagnosis/Chief Complaint Date of Admission 10/26/2017 Date of Discharge 10/26/2017 Admission Diagnosis prolonged episode of chest pain refractory to medical therapy. Final/Discharge Diagnosis patent epicardial coronary arteries. Chief Complaint/HPI Chief Complaint/HPI this is a 52-year-old gentleman who presented to the ER with prolonged episode of chest pain. He was discharged from the ER after serial troponins were negative. He came to see me in the office couple of days later however was still having chest pain. Coronary angiography was recommended. Discharge Summary Procedures coronary angiography showed patent epicardial coronary arteries. Normal LV function. Discharge Physical Examination normal cardiovascular and respiratory examination. Hospital Course unremarkable. Pending Labs Laboratory Tests 10/26/17 12:00: White Blood Count 11.1, Red Blood Count 5.31, Hemoglobin 16.0, Hematocrit 46, Mean Corpuscular Volume 86, Mean Corpuscular Hemoglobin 30, Mean Corpuscular Hemoglobin Concent 35, Red Cell Distribution Width 14.6, Platelet Count 364, Mean Platelet Volume 9.2, Prothrombin Time 14.0, INR Comment 1.1, Activated Partial Thromboplast Time 29, Sodium Level 137, Potassium Level 4.1, Chloride Level 104, Carbon Dioxide Level 28, Anion Gap 5, Blood Urea Nitrogen 9, Creatinine 0.80, Estimat Glomerular Filtration Rate > 60, BUN/Creatinine Ratio 11, Glucose Level 101, Calcium Level 9.1, Total Bilirubin 0.9, Aspartate Amino Transf (AST/SGOT) 23, Alanine Aminotransferase (ALT/SGPT) 45, Alkaline Phosphatase 93, Total Protein 7.2, Albumin 4.3, Triglycerides Level 226, Cholesterol Level 220, LDL Cholesterol Direct 137, VLDL Cholesterol 45, HDL Cholesterol 43 Discussion & Recommendations Discussion discharge instructions given. LDL 137. Lipitor 20 mg started. Follow up appt.: Dr. Chin in 2 weeks. Dicharge Diet: Cardiac Diet Activity as Tolerated: Yes Home Medications Reviewed patient Home Medication Reconciliation performed by pharmacy medication reconciliations forensic science technician and/or nursing. Patients Allergies have been reviewed. Discharge Home Medications: Reviewed and agree with Discharge Medication list on patient's Discharge Instruction sheet Condition at discharge stable Instructions to patient/family Dr. Chin in 2 weeks. Zia CHIN MD Oct 26, 2017 2:36 pm
[2017-10-26] MEDS ORDERED: PATIENT MAY USE OWN MEDS, ALL PO SCH (14:45)
== END 2017-10-26 17:20 | disposition home or self-care (01) ==
LOC: CATH 11:31
PROVIDERS: ATTEND Internal Medicine Interventional Cardiology
DX: R07.2 Precordial pain (principal); I10 Essential (primary) hypertension; E78.5 Hyperlipidemia, unspecified; F17.210 Nicotine dependence, cigarettes, uncomplicated; J45.909 Unspecified asthma, uncomplicated; G40.909 Epilepsy, unspecified, not intractable, without status epilepticus; I25.2 Old myocardial infarction; Z82.49 Family history of ischemic heart disease and other diseases of the circulatory system; Z86.73 Personal history of transient ischemic attack (TIA), and cerebral infarction without residual deficits; Z87.820 Personal history of traumatic brain injury; Z79.899 Other long term (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
CPT/HCPCS: 36415; 80053; 80061; 85027; 85610; 85730; 87081; 93458

== ENCOUNTER 2018-05-25 14:26 | Emergency (ER) | payer MEDICARE, MEDICAID ==
[~2018-05-25] VITALS: Ht 175.3 cm; Wt 81.6 kg
[~2018-05-25 14:26] MED LIST changes: +ATOR20TA49 PO; -BENZ-13 PO; +BENZ100C18 PO; +DIVA-76 PO; -DIVA500T7 PO; +DULO30CA48 PO; +LEVE500T6 PO; +TRAZ-190 PO; -TRAZ100T92 PO
--- OUTSIDE RECORDS SUMMARY | 2018-05-25 14:33 | XMS REPORT ---
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 Name Role Phone YUMIKO MICHEL Unavailable PROBLEMS Type Condition ICD9-CM Code LMY04-DF Code Onset Dates Condition Status SNOMED Code Problem BPH (benign prostatic hyperplasia) N40.0 Active 464276602 Problem Major depressive disorder, recurrent episode F33.9 Active 206856807 Problem LEROY (generalized anxiety disorder) F41.1 Active 15458988 Problem Spinal stenosis of lumbar region without neurogenic claudication M48.061 Active 39838180 Problem Post traumatic seizure disorder R56.1 Active 52523033 Problem Hypercholesterolemia E78.00 Active 31584516 Problem Irritable bladder N32.89 Active 677989820 Problem Gastroesophageal reflux disease, esophagitis presence not specified K21.9 Active 140048257 Problem Environmental allergies Z91.09 Active 227921575 Problem Tobacco abuse Z72.0 Active 15005581 Problem Chronic pain G89.29 Active 08301891 Problem Seizures R56.9 Active 78853572 Problem COPD (chronic obstructive pulmonary disease) J44.9 Active 46049957 Problem Generalized osteoarthritis M15.9 Active 474724253 ALLERGIES Substance Reaction Event Type Date Status Ultracet headache, "blindness" Drug Allergy Feb, Active Prozac "stops my heart" Drug Allergy Feb, Active Codeine Sulfate agitation Drug Allergy Feb, Active ENCOUNTERS Encounter Location Date Diagnosis [facility] [address] [facility] [id number] [address] Mar, Chronic pain G89.29 [facility] [address] [id number] [address] Feb, Spinal stenosis of lumbar region without neurogenic claudication M48.061 and Seizures R56.9 [facility] [address] [id number], [place] [address] Feb, Chronic pain G89.29 [facility] [address] [id number], [place] [address] Feb, [facility] [id number] [place] [address] 74499- 8221 Feb, [facility] [id number] [place] [address] 62686- 8928 Jan, [facility] [id number] [place] [address] 60378- 4816 Jan, [facility] [id number] [place] [address] 22115- 6487 Jan, [facility] [id number] [place] [address] 65600- 3595 Jan, Chronic pain G89.29 [facility] [id number] [place] [address] 25705- 4485 Jan, Generalized osteoarthritis M15.9 ; COPD (chronic obstructive pulmonary disease) J44.9 ; LEROY (generalized anxiety disorder) F41.1 and Gastroesophageal reflux disease, esophagitis presence not specified K21.9 [place] [id number] [place] [address] 86021- 8688 Dec, Chronic pain G89.29 [place] [id number] [place] [address] 19905- 9589 Dec, Anxiety F41.9 and COPD (chronic obstructive pulmonary disease) J44.9 [place] [id number] [place] [address] 75157- 6462 November, Chronic pain G89.29 [facility] [id number] [place] [address] 32337- 4671 November, Medicare annual wellness visit, initial Z00.00 ; COPD ( chronic obstructive pulmonary disease) J44.9 ; Major depressive disorder, recurrent episode F33.9 ; Gastroesophageal reflux disease, esophagitis presence not specified K21.9 ; Hypercholesterolemia E78.00 ; Seizures R56.9 ; Chronic pain G89.29 ; BPH (benign prostatic hyperplasia) N40.0 and Encounter for immunization Z23 [place] [address] 7[address]27- 7447 November, Chronic pain G89.29 [facility] [address] 17962- 4826 Oct, [facility] [address] 49842- 1813 Oct, Chronic pain G89.29 [place] [address] 95388- 8842 Sep, [place] [address] 82631- 0203 Sep, COPD (chronic obstructive pulmonary disease) J44.9 ; Tobacco abuse Z72.0 ; Major depressive disorder, recurrent episode F33.9 and Hypercholesterolemia E78.00 [facility] [id number] [place] [address] 02012- 5806 Sep, [place] [id number] [place] [address] 83908- 2863 Sep, Hypercholesterolemia E78.00 [place] [id number] [place] [address] 20666- 5052 Sep, Chronic pain G89.29 ; COPD (chronic obstructive pulmonary disease) J44.9 ; Major depressive disorder, recurrent episode F33.9 ; Post traumatic seizure disorder R56.1 and Hypercholesterolemia E78.00 [place] [id number] [place] [address] 80900- 7113 Sep, Chronic pain G89.29 [facility] [id number] [place] [address] 96314- 2622 Aug, Major depressive disorder, recurrent episode F33.9 and Gastroesophageal reflux disease, esophagitis presence not specified K21.9 [facility] [id number] [place] [address] 25313- 8484 Aug, Chronic pain G89.29 [facility] [id number] [place] [address] 07446- 0970 Jul, Other chronic pain G89.29 and Anxiety F41.9 [facility] [id number] [place] [address] 03658- 1573 15 Jun, 2017 Chronic pain G89.29 and Seizures R56.9 [place] [address] 26482- 0666 Jun, Other chronic pain G89.29 and Anxiety F41.9 [place] [address] 13409- 0577 May, COPD (chronic obstructive pulmonary disease) J44.9 [place] [id number] [place] [address] 98134- 2935 May, Other chronic pain G89.29 and Anxiety F41.9 [facility] [id number] [place] [address] 44876- 8796 Apr, Other chronic pain G89.29 and Anxiety F41.9 [facility] [place] [id number] [place] [address] 94650- 1582 Mar, Anxiety F41.9 and Other chronic pain G89.29 [facility] [id number] [place] [address] 49665- 3185 Feb, [facility] [id number] [place] [address] 37506- 5177 Feb, Anxiety F41.9 and Other chronic pain G89.29 [place] [id number] [place] [address] 80181- 9557 Feb, [place] [id number] [place] [address] 91049- 8189 Feb, COPD (chronic obstructive pulmonary disease) J44.9 ; Sleep apnea due to high altitude G47.31 and Oxygen desaturation during sleep G47.34 [place] [address], [place] [address]- 1648 Jan, Other chronic pain G89.29 and Anxiety F41.9 [facility] [id number] [place] [address] 56844- 5609 Jan, [facility] [id number] [place] [address] 38145- 7226 Dec, Anxiety F41.9 and Other chronic pain G89.29 [facility] [place] [id number] [place] [address] 22984- 5093 Dec, [place] [id number] [place] [address] 22349- 7964 Dec, [place] [id number] [place] [address] 90760- 5565 Dec, Seizures R56.9 ; Chronic pain G89.29 [...] and COPD (chronic obstructive pulmonary disease) J44.9 [place] [place] [id number] [place] [address] 34129- 3807 Dec, [facility] [id number] [place] [address] 35055- 4564 Dec, [place] [facility] [id number] [place] [address] 37008- 4580 Dec, Generalized osteoarthritis M15.9 and Anxiety F41.9 [facility] [id number] [place] [address] 99534- 1652 November, Status post shoulder surgery Z98.890 [place] [id number] [place] [address] 48778- 3833 November, Generalized osteoarthritis M15.9 and Anxiety F41.9 [facility] [id number] [place] [address] 36976- 7824 Oct, [place] [id number] [place] [address] 00095- 1324 Oct, Bilateral hearing loss, unspecified hearing loss [...] ; Anxiety F41.9 and Environmental allergies Z91.[address] [address]- 7840 Oct, Chronic pain G89.29 and LEROY (generalized anxiety disorder) F41.1 [place] [id number] [place] [address] 91971- 9554 Sep, [place] [id number] [place] [address] 75605- 5677 Sep, Tear of right rotator cuff, unspecified [...] disease) J44.9 and Hearing reduced, bilateral H91.93 [place] [id number] [place] [address] 98144- 1940 Sep, LEROY (generalized anxiety disorder) F41.[address] [place] [address]- 8880 Aug, [place] [address] 33473- 1522 Aug, Tear of right rotator cuff, unspecified tear extent M75.101 [place] [id number] [place] [address] 40963- 3979 Aug, Seizures R56.9 ; Chronic pain G89.29 ; Generalized osteoarthritis M15.9 ; COPD (chronic obstructive pulmonary disease) J44.9 ; LEROY (generalized anxiety disorder) F41.1 ; Gastroesophageal reflux disease, esophagitis presence not specified K21.9 ; Scabies B86 ; Hypercholesterolemia E78.00 ; Irritable bladder N32.89 and Edema, unspecified type R60.9 [place] [id number] [place] [address] 78501- 0930 Jul, Major depressive disorder, recurrent episode F33.9 [place] [address] 85532- 8228 Jul, Seizures R56.9 ; Hypercholesterolemia E78.00 ; BPH (benign prostatic hyperplasia) N40.0 ; Major depressive disorder, recurrent episode F33.9 and Edema, unspecified type R60.9 [place] [id number] [place] [address] 75995- 2267 Jul, Chronic pain G89.29 and LEROY (generalized anxiety disorder) F41.1 [place] [address] 77997- 5182 Jul, Seizures R56.9 ; COPD (chronic obstructive [...] shoulder M25.511 and Other chronic pain G89.29 [facility] [id number] [place] [address] 64469- 9663 Jun, [facility] [id number] [place] [address] 28457- 6265 May, [facility] [id number] [place] [address] 74288- 2407 Apr, [facility] [id number] [place] [address] 83683- 7515 Apr, Seizures R56.9 ; COPD (chronic obstructive pulmonary disease ) J44.9 ; BPH (benign prostatic hyperplasia) N40.0 ; Chronic pain G89.29 ; Tobacco abuse Z72.0 ; LEROY (generalized anxiety disorder) F41.1 ; Environmental allergies Z91.09 ; Irritable bladder N32.89 and Hypercholesterolemia E78.00 [facility] [id number] [place] [address] 37401- 0385 Mar, [facility] [id number] [place] [address] 22387 2541 Mar, [facility] [id number] [place] [address] 54428- 6100 Mar, [facility] [id number] [place] [address] 04956- 8391 Mar, [facility] [id number] [place] [address] 53586- 1458 Feb, [facility] [id number] [place] [address] 94616 2548 Feb, Chronic pain G89.29 [facility] [id number] [place] [address] 96495- 0997 Feb, [facility] [id number] [place] [address] 89517- 2542 Jan, [facility] [id number] [place] [address] 53119- 7473 Dec, [facility] [id number] [place] [address] 16432- 9567 Dec, [place] [address] 37196- 5010 Dec, Seizures R56.9 ; COPD (chronic obstructive pulmonary disease ) J44.9 ; Chronic pain G89.29 ; BPH (benign prostatic hyperplasia) N40.0 ; Generalized osteoarthritis M15.9 ; Hypercholesterolemia E78.0 ; Overactive bladder N32.81 ; Insomnia, unspecified type G47.00 ; Other depression F32.8 ; Environmental allergies Z91.09 and Gastroesophageal reflux disease, esophagitis presence not specified K21.9 [place] [address] 28940- 1284 November, Chronic pain due to trauma G89.21 and Anxiety F41.9 [place] [address] 14953- 0630 Oct, [place] [id number] [place] [address] 63655- 4860 Sep, [place] [address] 90043- 8580 Sep, [place] [id number] [place] [address] 66373- 5430 Sep, [place] [address] 33799- 5125 Sep, Seizures R56.9 ; Major depressive disorder, recurrent episode F33.9 and LEROY (generalized anxiety disorder) F41.1 [place] [id number] [place] [address] 33119- 9305 Aug, [place] [id number] [place] [address] 69541- 2332 Aug, COPD (chronic obstructive pulmonary disease) J44.9 ; Chronic pain G89.29 ; BPH (benign prostatic hyperplasia) N40.0 ; Tobacco abuse Z72.0 ; Generalized osteoarthritis M15.9 ; Seizures R56.9 ; Overactive bladder N32.81 ; Depression F32.9 and Anxiety F41.9 [place] [address] 87486- 1867 Jul, Essential (primary) hypertension I10 ; Pure hypercholesterolemia E78.0 ; Generalized osteoarthrosis, unspecified site 715.00 and Other manager intermediate (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 Z79.899 [place] [id number] [place] [address] 67007- 1132 Jul, [place] [id number] [place] [address] 38159- 5585 Jul, [place] [address] 96392- 8739 Jun, [place] [address] 17137- 6492 May, [place] [id number] [place] [address] 24745- 8652 Apr, [place] [id number] [place] [address] 72214- 0576 Apr, Seizures R56.9 ; COPD (chronic obstructive pulmonary disease ) J44.9 ; Chronic pain G89.29 ; BPH (benign prostatic hyperplasia) N40.0 ; Tobacco abuse Z72.0 ; Generalized osteoarthritis M15.9 ; Insomnia G47.00 ; Anxiety F41.9 and GERD (gastroesophageal reflux disease) K21.9 [place] [id number] [place] [address] 58317- 3527 Apr, [place] [id number] [place] [address] 83399- 9974 Mar, [place] [address] 89906- 6592 Feb, Major depression, recurrent 296.30 and Generalized anxiety disorder 300.02 [place] [address] 56275- 4186 Feb, [facility] [address], [place] [address]- 0876 Feb, [facility] [id number] [place] [address] 08580- 0236 Jan, Chronic pain due to injury 338.21 ; Seizures 780.39 ; COPD ( chronic obstructive pulmonary disease) 496 ; BPH (benign prostatic hyperplasia) 600.00 ; Tobacco use disorder 305.1 ; Generalized osteoarthrosis, unspecified site 715.00 ; Anxiety 300.00 ; GERD (gastroesophageal reflux disease) 530.81 and Hypercholesteremia 272.0 [place] [id number] [place] [address] 704560- 9227 Jan, [facility] [id number] [place] [address] 95594- 7125 Jan, [facility] [id number] [place] [address] 44289- 6470 Jan, [facility] [id number] [place] [address] 67055- 6548 Jan, Seizures 780.39 ; COPD (chronic obstructive pulmonary disease) 496 ; Chronic pain due to injury 338.21 ; BPH (benign prostatic hyperplasia) 600.00 ; Tobacco use disorder 305.1 ; Generalized osteoarthrosis, unspecified site 715.00 ; Encounter for long-term (current) use of other medications V58.69 ; GERD (gastroesophageal reflux disease) 530.81 ; Hypercholesteremia 272.0 and Depression 311 [facility] [address] [place] [address] 06483- 3746 Jan, [facility] [id number] [place] [address] 401341- 4439 Jan, Chronic pain due to injury 338.21 [facility] [address] [place] [address] 57339- 4946 Dec, [facility] [id number] [place] [address] 283467- 8251 Dec, Seizures 780.39 ; COPD (chronic obstructive pulmonary disease) 496 ; Chronic pain due to injury 338.21 ; Environmental allergies V15.09 ; GERD (gastroesophageal reflux disease) 530.81 ; Essential hypertension 401.9 ; Psoriasis 696.1 ; PTSD (post-traumatic stress disorder) 309.81 and Depression (emotion) 311 IMMUNIZATIONS No Known Immunizations SOCIAL HISTORY Never Assessed REASON FOR VISIT monique day ---JAREN Shea PLAN OF CARE Activity Details Follow Up 3 Months Reason: VITAL SIGNS Height 67.5 in 2018-03-27 Weight 173.6 lbs 2018-03-27 Temperature 97.8 degrees Fahrenheit 2018-03-27 Heart Rate 80 bpm 2018-03-27 Respiratory Rate 18 2018-03-27 BMI 26.79 kg/m2 2018-03-27 Blood pressure systolic 142 mmHg 2018-03-27 Blood pressure diastolic 80 mmHg 2018-03-27 MEDICATIONS Medication Instructions Dosage Frequency Start Date End Date Duration Status Cane - as directed Feb, Active Fluticasone Propionate 50 MCG/ACT Nasally 2 times a day 2 sprays in each nostril 12h Active Cane - as directed Jan, Active Trazodone HCl 100 mg Orally Once a day 1 tablet at bedtime 24h Oct, 30 day(s) Active Albuterol Sulfate (2.5 MG/3ML) 0.083% USE ONE VIAL VIA NEBULIZER FOUR TIMES DAILY 12 Active Percocet 10-325 MG Orally 3 times a day 1 tablet as needed 8h Feb, 28 days Active Lipitor 20 mg Orally Once a day 1 tablet 24h Active Flonase Allergy Relief 50 MCG/ACT Nasally 2 times a day 1-2 spray in each nostril 12h Active Abilify 10 mg Orally Once in the morning 1 tablet Active Fish Oil 1000 MG Orally Once a day 3 capsule 24h Active Alprazolam 0.5 MG Orally 2 times a day prn 1 tablet Jul, 28 days Active Benadryl Allergy 25 MG Orally every 6 hrs 1 tablet as needed 6h Active Keppra 500 mg Orally 2 times a day 1 tablet 12h 30 Active Cymbalta 60 mg Orally Once a day 1 capsule 24h Active Advair Diskus 250-50 MCG/DOSE Inhalation Twice a day 1 puff 12h 16 Feb, 2017 Active Albuterol Sulfate HFA cfc free 90 mcg/inh Inhalation every 4 hrs 2 puffs as needed 4h Active Tylenol 325 MG Orally every 6 hrs 2 tablets as needed 6h Active Nebulizer Active Oxygen by inhalation route nocturnal 2 liters Oct, Active Omeprazole 20 mg Orally 2 times a day 1 capsule 12h Active RESULTS No Results PROCEDURES Procedure Date Ordered Result Body Site [facility] VISIT ESTABLISHED PATIENT Mar 27, 2018 INSTRUCTIONS MEDICATIONS ADMINISTERED No Known Medications MEDICAL [...] 2013 Hospitalization History carbon dioxide poisoning 2013 Hospitalization History [facility] [place]- CP and SOB 10/17/2017
--- OUTSIDE RECORDS SUMMARY | 2018-05-25 14:33 | XMS REPORT ---
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 Name Role Phone ALY WASHINGTON Unavailable PROBLEMS Type Condition ICD9-CM Code AOD46-KO Code Onset Dates Condition Status SNOMED Code Problem BPH (benign prostatic hyperplasia) N40.0 Active 757988333 Problem Major depressive disorder, recurrent episode F33.9 Active 655813116 Problem LEROY (generalized anxiety disorder) F41.1 Active 01823236 Problem Spinal stenosis of lumbar region without neurogenic claudication M48.061 Active 37125536 Problem Post traumatic seizure disorder R56.1 Active 14445903 Problem Hypercholesterolemia E78.00 Active 66344880 Problem Irritable bladder N32.89 Active 483764310 Problem Gastroesophageal reflux disease, esophagitis presence not specified K21.9 Active 866367303 Problem Environmental allergies Z91.09 Active 060669218 Problem Tobacco abuse Z72.0 Active 86111454 Problem Chronic pain G89.29 Active 15601332 Problem Seizures R56.9 Active 17902572 Problem COPD (chronic obstructive pulmonary disease) J44.9 Active 64535951 Problem Generalized osteoarthritis M15.9 Active 952605974 ALLERGIES No Information ENCOUNTERS Encounter Location Date Diagnosis [facility] [id number] [place] [address] 34461- 5434 Mar, Chronic pain G89.29 [facility] [id number] [place] [address] 90437- 3153 Feb, Spinal stenosis of lumbar region without neurogenic claudication M48.061 and Seizures R56.9 [facility] [id number] [place] [address] 23217- 4088 Feb, Chronic pain G89.29 [facility] [id number] [place] [address] 81534- 7492 Feb, [place] [address] [address] 117[address] Feb, [facility] [id number] [place] [address] 57959- 8304 Jan, [facility] [id number] [place] [address] 76597- 7911 Jan, [facility] [id number] [place] [address] 75109- 1097 Jan, [facility] [id number] [place] [address] 57087- 9738 Jan, Chronic pain G89.29 [facility] [id number] [place] [address] 44844- 0293 Jan, Generalized osteoarthritis M15.9 ; COPD (chronic obstructive pulmonary disease) J44.9 ; LEROY (generalized anxiety disorder) F41.1 and Gastroesophageal reflux disease, esophagitis presence not specified K21.9 [facility] [id number] [place] [address] 71031- 8810 Dec, Chronic pain G89.29 [facility] [id number] [place] [address] 28443- 2995 Dec, Anxiety F41.9 and COPD (chronic obstructive pulmonary disease) J44.9 [facility] [id number] [place] [address] 13212- 3634 November, Chronic pain G89.29 [facility] [place] [id number] [place] [address] 09917- 5570 November, Medicare annual wellness visit, initial Z00.00 ; COPD ( chronic obstructive pulmonary disease) J44.9 ; Major depressive disorder, recurrent episode F33.9 ; Gastroesophageal reflux disease, esophagitis presence not specified K21.9 ; Hypercholesterolemia E78.00 ; Seizures R56.9 ; Chronic pain G89.29 ; BPH (benign prostatic hyperplasia) N40.0 and Encounter for immunization Z23 [facility] [id number] [place] [address] 67149- 4019 November, Chronic pain G89.29 [facility] [id number] [place] [address] 76652- 1305 Oct, [facility] [id number] [place] [address] 53394- 0437 Oct, Chronic pain G89.29 [facility] [id number] [place] [address] 27637- 2301 Sep, [facility] [id number] [place] [address] 53145- 2502 Sep, COPD (chronic obstructive pulmonary disease) J44.9 ; Tobacco abuse Z72.0 ; Major depressive disorder, recurrent episode F33.9 and Hypercholesterolemia E78.00 [facility] [id number] [place] [address] 04504- 5020 Sep, [facility] [id number] [place] [address] 34413- 6661 Sep, Hypercholesterolemia E78.00 [facility] [id number] [place] [address] 92295- 6002 Sep, Chronic pain G89.29 ; COPD (chronic obstructive pulmonary disease) J44.9 ; Major depressive disorder, recurrent episode F33.9 ; Post traumatic seizure disorder R56.1 and Hypercholesterolemia E78.00 [facility] [id number] [place] [address] 84914- 6930 Sep, Chronic pain G89.29 [facility] [id number] [place] [address] 71821- 1532 Aug, Major depressive disorder, recurrent episode F33.9 and Gastroesophageal reflux disease, esophagitis presence not specified K21.9 [facility] [id number] [place] [address] 95696- 1231 Aug, Chronic pain G89.29 [facility] [id number] [place] [address] 43956- 8353 Jul, Other chronic pain G89.29 and Anxiety F41.9 [facility] [id number] [place] [address] 62383- 1661 15 Jun, 2017 Chronic pain G89.29 and Seizures R56.9 [facility] [id number] [place] [address] 09002- 4006 Jun, Other chronic pain G89.29 and Anxiety F41.9 [facility] [address] 00954- 4486 May, COPD (chronic obstructive pulmonary disease) J44.9 [facility] [id number] [place] [address] 94080- 6210 May, Other chronic pain G89.29 and Anxiety F41.9 [facility] [id number] [place] [address] 51596- 0356 Apr, Other chronic pain G89.29 and Anxiety F41.9 [facility] [id number] [place] [address] 22388- 5514 Mar, Anxiety F41.9 and Other chronic pain G89.29 [facility] [id number] [place] [address] 57246- 0688 Feb, [facility] [id number] [place] [address] 79565- 2324 Feb, Anxiety F41.9 and Other chronic pain G89.29 [facility] [id number] [place] [address] 14917- 9938 Feb, [facility] [id number] [place] [address] 50876- 0078 Feb, COPD (chronic obstructive pulmonary disease) J44.9 ; Sleep apnea due to high altitude G47.31 and Oxygen desaturation during sleep G47.34 [facility] [id number] [place] [address] 42424- 3982 Jan, Other chronic pain G89.29 and Anxiety F41.9 [facility] [id number] [place] [address] 87649- 1669 Jan, [facility] [address] 84095- 5174 Dec, Anxiety F41.9 and Other chronic pain G89.29 [facility] [id number] [place] [address] 19725- 7985 Dec, [facility] [facility] [id number] [place] [address] 12923- 7843 Dec, [facility] [facility] [id number] [place] [address] 30881- 5714 Dec, Seizures R56.9 ; Chronic pain G89.29 [...] and COPD (chronic obstructive pulmonary disease) J44.9 [facility] [id number] [place] [address] 40453- 7994 Dec, [facility] [facility] [id number] [place] [address] 65126- 4566 Dec, [facility] [facility] [id number] [place] [address] 03401- 9093 Dec, Generalized osteoarthritis M15.9 and Anxiety F41.9 [facility] [id number] [place] [address] 53561- 1103 November, Status post shoulder surgery Z98.890 [facility] [id number] [place] [address] 73542- 1090 November, Generalized osteoarthritis M15.9 and Anxiety F41.9 [facility] [address] 36102- 2231 Oct, [facility] [facility] [id number] [place] [address] 59990- 0138 Oct, Bilateral hearing loss, unspecified hearing loss [...] ; Anxiety F41.9 and Environmental allergies Z91.09 [facility] [id number] [place] [address] 20162- 9099 Oct, Chronic pain G89.29 and LEROY (generalized anxiety disorder) F41.1 [place] [id number] [place] [address] 58891- 2398 Sep, [address] 70268- 4129 Sep, Tear of right rotator cuff, unspecified [...] disease) J44.9 and Hearing reduced, bilateral H91.93 [place] [id number] [place] [address] 44723- 3640 Sep, LEROY (generalized anxiety disorder) F41.1 [place] [id number] [place] [address] 03674- 3902 Aug, [address] 95744- 4129 Aug, Tear of right rotator cuff, unspecified tear extent M75.101 [place] [id number] [place] [address] 32069- 0848 Aug, Seizures R56.9 ; Chronic pain G89.29 ; Generalized osteoarthritis M15.9 ; COPD (chronic obstructive pulmonary disease) J44.9 ; LEROY (generalized anxiety disorder) F41.1 ; Gastroesophageal reflux disease, esophagitis presence not specified K21.9 ; Scabies B86 ; Hypercholesterolemia E78.00 ; Irritable bladder N32.89 and Edema, unspecified type R60.9 [facility] [id number] [place] [address] 35006- 4749 Jul, Major depressive disorder, recurrent episode F33.9 [facility] [id number] [place] [address] 87951- 6976 Jul, Seizures R56.9 ; Hypercholesterolemia E78.00 ; BPH (benign prostatic hyperplasia) N40.0 ; Major depressive disorder, recurrent episode F33.9 and Edema, unspecified type R60.9 [facility] [facility] [id number] [place] [address] 73962- 9414 Jul, Chronic pain G89.29 and LEROY (generalized anxiety disorder) F41.1 [place] [id number] [place] [address] 42643- 3218 Jul, Seizures R56.9 ; COPD (chronic obstructive [...] shoulder M25.511 and Other chronic pain G89.29 [facility] [facility] [id number] [place] [address] 62143- 6589 Jun, [place] [id number] [address]- 3250 May, [facility] [id number] [place] [address] 47535- 8424 Apr, [facility] [id number] [place] [address] 50057- 1792 Apr, Seizures R56.9 ; COPD (chronic obstructive pulmonary disease ) J44.9 ; BPH (benign prostatic hyperplasia) N40.0 ; Chronic pain G89.29 ; Tobacco abuse Z72.0 ; LEROY (generalized anxiety disorder) F41.1 ; Environmental allergies Z91.09 ; Irritable bladder N32.89 and Hypercholesterolemia E78.00 [facility] [id number] [place] [address] 54551- 8786 Mar, [facility] [id number] [place] [address] 26962- 2606 Mar, [facility] [id number] [place] [address] 01180- 5807 Mar, [facility] [id number] [place] [address] 94817- 2364 Mar, [facility] [id number] [place] [address] 51430- 1922 Feb, [facility] [id number] [place] [address] 17502- 8558 Feb, Chronic pain G89.29 [facility] [id number] [place] [address] 92004- 9116 Feb, [facility] [id number] [place] [address] 56644- 4760 Jan, [facility] [id number] [place] [address] 51582- 6395 Dec, [facility] [address] [address]- 3250 Dec, [facility] [address] 93585- 2644 Dec, Seizures R56.9 ; COPD (chronic obstructive pulmonary disease ) J44.9 ; Chronic pain G89.29 ; BPH (benign prostatic hyperplasia) N40.0 ; Generalized osteoarthritis M15.9 ; Hypercholesterolemia E78.0 ; Overactive bladder N32.81 ; Insomnia, unspecified type G47.00 ; Other depression F32.8 ; Environmental allergies Z91.09 and Gastroesophageal reflux disease, esophagitis presence not specified K21.9 [place] [address] 99003- 8994 November, Chronic pain due to trauma G89.21 and Anxiety F41.9 [place] [address] 58976- 8872 Oct, [place] [address] 17608- 4004 Sep, [place] [address] 02290- 5965 Sep, [place] [address] 53295- 6728 Sep, [place] [address] 10681- 3034 Sep, Seizures R56.9 ; Major depressive disorder, recurrent episode F33.9 and LEROY (generalized anxiety disorder) F41.1 [place] [id number] [place] [address] 10157- 1071 Aug, [place] [id number] [place] [address] 48058- 2879 Aug, COPD (chronic obstructive pulmonary disease) J44.9 ; Chronic pain G89.29 ; BPH (benign prostatic hyperplasia) N40.0 ; Tobacco abuse Z72.0 ; Generalized osteoarthritis M15.9 ; Seizures R56.9 ; Overactive bladder N32.81 ; Depression F32.9 and Anxiety F41.9 [place] [address] [place] [address]- 8676 Jul, Essential (primary) hypertension I10 ; Pure hypercholesterolemia E78.0 ; Generalized osteoarthrosis, unspecified site 715.00 and Other alf (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 Z79.899 [facility] [id number] [place] [address] 50394- 9630 Jul, [facility] [address] 70589- 6183 Jul, [facility] [id number] [place] [address] 41280- 1555 Jun, [facility] [address] 17907- 2258 May, [facility] [id number] [place] [address] 04574- 4218 Apr, [facility] [address] 83760- 4467 Apr, Seizures R56.9 ; COPD (chronic obstructive pulmonary disease ) J44.9 ; Chronic pain G89.29 ; BPH (benign prostatic hyperplasia) N40.0 ; Tobacco abuse Z72.0 ; Generalized osteoarthritis M15.9 ; Insomnia G47.00 ; Anxiety F41.9 and GERD (gastroesophageal reflux disease) K21.9 [facility] [id number] [place] [address] 64297- 6516 Apr, [facility] [id number] [place] [address] 17739- 4847 Mar, [facility] [id number] [place] [address] 46988- 4417 Feb, Major depression, recurrent 296.30 and Generalized anxiety disorder 300.02 [facility] [id number] [place] [address] 62834- 4983 Feb, [facility] [id number] [place] [address] 13179- 9405 Feb, [place] [address] [address]- 4831 Jan, Chronic pain due to injury 338.21 ; Seizures 780.39 ; COPD ( chronic obstructive pulmonary disease) 496 ; BPH (benign prostatic hyperplasia) 600.00 ; Tobacco use disorder 305.1 ; Generalized osteoarthrosis, unspecified site 715.00 ; Anxiety 300.00 ; GERD (gastroesophageal reflux disease) 530.81 and Hypercholesteremia 272.0 [place] [id number] [place] [address] 660895- 1523 Jan, [place] [id number] [place] [address] 15044- 8355 Jan, [place] [id number] [place] [address] 30965- 6356 Jan, [place] [id number] [place] [address] 69238- 7696 Jan, Seizures 780.39 ; COPD (chronic obstructive pulmonary disease) 496 ; Chronic pain due to injury 338.21 ; BPH (benign prostatic hyperplasia) 600.00 ; Tobacco use disorder 305.1 ; Generalized osteoarthrosis, unspecified site 715.00 ; Encounter for long-term (current) use of other medications V58.69 ; GERD (gastroesophageal reflux disease) 530.81 ; Hypercholesteremia 272.0 and Depression [address] [place] [address] 59223- 3300 Jan, [place] [id number] [place] [address] 90223- 1185 Jan, Chronic pain due to injury 338.21 [place] [id number] [place] [address] 016351- 0295 Dec, [place] [id number] [place] [address] 93046745- 8622 Dec, Seizures 780.39 ; COPD (chronic obstructive pulmonary disease) 496 ; Chronic pain due to injury 338.21 ; Environmental allergies V15.09 ; GERD (gastroesophageal reflux disease) 530.81 ; Essential hypertension 401.9 ; Psoriasis 696.1 ; PTSD (post-traumatic stress disorder) 309.81 and Depression (emotion) 311 IMMUNIZATIONS No Known Immunizations SOCIAL HISTORY Never Assessed REASON FOR VISIT Controlled Med Refill 03/23 PLAN OF CARE VITAL SIGNS MEDICATIONS Medication Instructions Dosage Frequency Start Date End Date Duration Status Alprazolam 0.5 MG Orally 2 times a day prn 1 tablet Jul, 28 days Active Percocet 10-325 MG Orally 3 times a day 1 tablet as needed 8h Feb, 28 days Active RESULTS No Results PROCEDURES [...] History carbon dioxide poisoning 2013 Hospitalization History [facility]- CP and SOB 10/17/2017
--- OUTSIDE RECORDS SUMMARY | 2018-05-25 14:34 | XMS REPORT ---
Author Author YUMIKO MICHEL [facility] Address [address] [place] [address] Care Team Providers Care Pipe Organ Technician Name Role Phone YUMIKO MICHEL Unavailable PROBLEMS Type Condition ICD9-CM Code [id number] Code Onset Dates Condition Status SNOMED Code Problem BPH (benign prostatic hyperplasia) N40.0 Active 931404118 Problem Major depressive disorder, recurrent episode F33.9 Active 381755875 Problem LEROY (generalized anxiety disorder) F41.1 Active 55358358 Problem Spinal stenosis of lumbar region without neurogenic claudication M48.061 Active 71591344 Problem Post traumatic seizure disorder R56.1 Active 75808727 Problem Hypercholesterolemia E78.00 Active 76596207 Problem Irritable bladder N32.89 Active 224365967 Problem Gastroesophageal reflux disease, esophagitis presence not specified K21.9 Active 449356696 Problem Environmental allergies Z91.09 Active 618030882 Problem Tobacco abuse Z72.0 Active 48182694 Problem Chronic pain G89.29 Active 28413895 Problem Seizures R56.9 Active 44084087 Problem COPD (chronic obstructive pulmonary disease) J44.9 Active 79357095 Problem Generalized osteoarthritis M15.9 Active 448800723 ALLERGIES No Information ENCOUNTERS Encounter Location Date Diagnosis [facility] [id number] [place] [address] 11668- 3295 Feb, Spinal stenosis of lumbar region without neurogenic claudication M48.061 and Seizures R56.9 [facility] [address] [id number] [place] [address] 13372- 9141 Feb, Chronic pain G89.29 [facility] [id number] [place] [address] 71952- 1851 Feb, [facility] [id number] [place] [address] 41589- 1288 Feb, [place] [id number] [address] Jan, [facility] [id number] [place] [address] 49846- 9704 Jan, [facility] [id number] [place] [address] 55108- 9763 Jan, [facility] [id number] [place] [address] 13120- 0845 Jan, Chronic pain G89.29 [place] [id number] [place] [address] 85913- 9337 Jan, Generalized osteoarthritis M15.9 ; COPD (chronic obstructive pulmonary disease) J44.9 ; LEROY (generalized anxiety disorder) F41.1 and Gastroesophageal reflux disease, esophagitis presence not specified K21.9 [place] [address] [id number] [place] [address] 37397- 0921 Dec, Chronic pain G89.29 [place] [address] [id number] [place] [address] 45687- 2421 Dec, Anxiety F41.9 and COPD (chronic obstructive pulmonary disease) J44.9 [place] [address] [id number] [place] [address] 56786- 5801 November, Chronic pain G89.29 [place] [address] [id number] [place] [address] 41512- 0528 November, Medicare annual wellness visit, initial Z00.00 ; COPD ( chronic obstructive pulmonary disease) J44.9 ; Major depressive disorder, recurrent episode F33.9 ; Gastroesophageal reflux disease, esophagitis presence not specified K21.9 ; Hypercholesterolemia E78.00 ; Seizures R56.9 ; Chronic pain G89.29 ; BPH (benign prostatic hyperplasia) N40.0 and Encounter for immunization Z23 [place] [id number] [place] [address] 35901- 8534 November, Chronic pain G89.29 [place] [address] [place] [id number] [place] [address] 54548- 6202 Oct, [facility] [address] 03472- 9827 Oct, Chronic pain G89.29 [place] [address] 46139- 7812 Sep, [place] [address] 10197- 0311 Sep, COPD (chronic obstructive pulmonary disease) J44.9 ; Tobacco abuse Z72.0 ; Major depressive disorder, recurrent episode F33.9 and Hypercholesterolemia E78.00 [place] [address] 68524- 1948 Sep, [place] [address] 22997- 2070 Sep, Hypercholesterolemia E78.00 [place] [address] 90060- 4848 Sep, Chronic pain G89.29 ; COPD (chronic obstructive pulmonary disease) J44.9 ; Major depressive disorder, recurrent episode F33.9 ; Post traumatic seizure disorder R56.1 and Hypercholesterolemia E78.00 [place] [address] [id number] [place] [address] 86830- 2600 Sep, Chronic pain G89.29 [place] [address] 21565- 8362 07 Aug, 2017 Major depressive disorder, recurrent episode F33.9 and Gastroesophageal reflux disease, esophagitis presence not specified K21.9 [place] [address] [id number] [place] [address] 78803- 1448 06 Aug, 2017 Chronic pain G89.29 [place] [address] 71030- 8339 Jul, Other chronic pain G89.29 and Anxiety F41.9 [place] [address] 71031- 7258 15 Jun, 2017 Chronic pain G89.29 and Seizures R56.9 [place] [address] 04231- 7576 Jun, Other chronic pain G89.29 and Anxiety F41.9 [place] [address] 69949- 7473 May, COPD (chronic obstructive pulmonary disease) J44.9 [place] [address] 67298- 3432 May, Other chronic pain G89.29 and Anxiety F41.9 [place] [address] 20940- 9581 Apr, Other chronic pain G89.29 and Anxiety F41.9 [place] [address] 87506- 5188 Mar, Anxiety F41.9 and Other chronic pain G89.29 [place] [address] 47080- 4949 Feb, [place] [address] 74792- 6854 Feb, Anxiety F41.9 and Other chronic pain G89.29 [place] [address] 83804- 5648 Feb, [place] [address] 91524- 3249 Feb, COPD (chronic obstructive pulmonary disease) J44.9 ; Sleep apnea due to high altitude G47.31 and Oxygen desaturation during sleep G47.34 [place] [address] 57091- 7972 Jan, Other chronic pain G89.29 and Anxiety F41.9 [place] [address] [place] [id number] [place] [address] 99822- 9067 Jan, [place] [address] [address] [id number] [place] [address] 40900- 9117 Dec, Anxiety F41.9 and Other chronic pain G89.29 [facility] [id number] [place] [address] 81421- 4249 16 Dec, 2016 [facility] [id number] [place] [address] 34044- 2507 Dec, [facility] [address] 45425- 1536 Dec, Seizures R56.9 ; Chronic pain G89.29 [...] and COPD (chronic obstructive pulmonary disease) J44.9 [place] [address] [address] [id number] [place] [address] 91883- 7707 Dec, [place] [address] [place] [address] [id number] [place] [address] 70355- 8138 Dec, [place] [address] [address] [id number] [place] [address] 13127- 7266 Dec, Generalized osteoarthritis M15.9 and Anxiety F41.9 [place] [address] [place] [id number] [place] [address] 94749- 2321 November, Status post shoulder surgery Z98.890 [facility] [address] [id number] [place] [address] 81984- 1642 November, Generalized osteoarthritis M15.9 and Anxiety F41.9 [facility] [id number] [place] [address] 17485- 3762 Oct, [facility] [address] [id number] [place] [address] 72866- 3776 Oct, Bilateral hearing loss, unspecified hearing loss [...] ; Anxiety F41.9 and Environmental allergies Z91.09 [place] [address] 21997- 2585 Oct, Chronic pain G89.29 and LEROY (generalized anxiety disorder) F41.[address] 39891- 2817 Sep, [address] 26281- 1880 Sep, Tear of right rotator cuff, unspecified [...] disease) J44.9 and Hearing reduced, bilateral H91.93 [place] [address] 14034- 3897 Sep, LEROY (generalized anxiety disorder) F41.1 [place] [address] 19484- 8110 Aug, [place] [address] 40857- 5535 Aug, Tear of right rotator cuff, unspecified tear extent M75.101 [place] [address] [place] [address]- 9713 Aug, Seizures R56.9 ; Chronic pain G89.29 ; Generalized osteoarthritis M15.9 ; COPD (chronic obstructive pulmonary disease) J44.9 ; LEROY (generalized anxiety disorder) F41.1 ; Gastroesophageal reflux disease, esophagitis presence not specified K21.9 ; Scabies B86 ; Hypercholesterolemia E78.00 ; Irritable bladder N32.89 and Edema, unspecified type R60.9 [place] [address] [address] [id number] [place] [address] 91053- 8331 Jul, Major depressive disorder, recurrent episode F33.9 [place] [address] 97776- 4058 Jul, Seizures R56.9 ; Hypercholesterolemia E78.00 ; BPH (benign prostatic hyperplasia) N40.0 ; Major depressive disorder, recurrent episode F33.9 and Edema, unspecified type R60.9 [place] [address] 39118- 5772 Jul, Chronic pain G89.29 and LEROY (generalized anxiety disorder) F41.1 [place] [address] 31785- 7504 Jul, Seizures R56.9 ; COPD (chronic obstructive [...] shoulder M25.511 and Other chronic pain G89.29 [place] [address] [place] [id number] [place] [address] 11466- 0987 Jun, [place] [address] [address] [id number] [place] [address] 15110- 3920 May, [place] [id number] [address] 2549 Apr, [facility] [id number] [place] [address] 75062 2547 Apr, Seizures R56.9 ; COPD (chronic obstructive pulmonary disease ) J44.9 ; BPH (benign prostatic hyperplasia) N40.0 ; Chronic pain G89.29 ; Tobacco abuse Z72.0 ; LEROY (generalized anxiety disorder) F41.1 ; Environmental allergies Z91.09 ; Irritable bladder N32.89 and Hypercholesterolemia E78.00 [facility] [id number] [place] [address] 08915 2546 Mar, [facility] [address] [id number] [place] [address] 93749 2546 Mar, [facility] [id number] [place] [address] 00042 2546 Mar, [facility] [id number] [place] [address] 12735 2546 Mar, [facility] [id number] [place] [address] 56122 2546 Feb, [facility] [id number] [place] [address] 54740 2546 Feb, Chronic pain G89.29 [facility] [id number] [place] [address] 14781 2546 Feb, [facility] [id number] [place] [address] 19532 2546 Jan, [facility] [id number] [address] 2546 Dec, [facility] [id number] [place] [address] 70221 2546 Dec, [facility] [id number] [place] [address] 38504 2546 Dec, Seizures R56.9 ; COPD (chronic obstructive pulmonary disease ) J44.9 ; Chronic pain G89.29 ; BPH (benign prostatic hyperplasia) N40.0 ; Generalized osteoarthritis M15.9 ; Hypercholesterolemia E78.0 ; Overactive bladder N32.81 ; Insomnia, unspecified type G47.00 ; Other depression F32.8 ; Environmental allergies Z91.09 and Gastroesophageal reflux disease, esophagitis presence not specified K21.9 [place] [address] [id number] [place] [address] 87711- 1388 November, Chronic pain due to trauma G89.21 and Anxiety F41.9 [place] [address] 36348- 1435 Oct, [place] [address] 77619- 8602 Sep, [place] [address] 14100- 4923 Sep, [place] [address] 06925- 3516 Sep, [place] [address] [place] [id number] [place] [address] 13566- 9903 Sep, Seizures R56.9 ; Major depressive disorder, recurrent episode F33.9 and LEROY (generalized anxiety disorder) F41.1 [place] [address] [place] [id number] [place] [address] 87746- 0387 Aug, [place] [id number] [place] [address] 55375- 7200 Aug, COPD (chronic obstructive pulmonary disease) J44.9 ; Chronic pain G89.29 ; BPH (benign prostatic hyperplasia) N40.0 ; Tobacco abuse Z72.0 ; Generalized osteoarthritis M15.9 ; Seizures R56.9 ; Overactive bladder N32.81 ; Depression F32.9 and Anxiety F41.9 [place] [address] [place] [address] [id number] [place] [address] 88243- 8900 Jul, Essential (primary) hypertension I10 ; Pure hypercholesterolemia E78.0 ; Generalized osteoarthrosis, unspecified site 715.00 and Other assisted (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 Z79.899 [facility] [id number] [place] [address] 62739- 2215 Jul, [facility] [id number] [place] [address] 73773- 9109 Jul, [facility] [address] [id number] [place] [address] 65148- 7894 Jun, [facility] [address] 88642- 7202 May, [facility] [address] 98296- 3251 Apr, [facility] [address] [id number] [place] [address] 71482- 4956 Apr, Seizures R56.9 ; COPD (chronic obstructive pulmonary disease ) J44.9 ; Chronic pain G89.29 ; BPH (benign prostatic hyperplasia) N40.0 ; Tobacco abuse Z72.0 ; Generalized osteoarthritis M15.9 ; Insomnia G47.00 ; Anxiety F41.9 and GERD (gastroesophageal reflux disease) K21.9 [facility] [id number] [place] [address] 50864- 7654 Apr, [facility] [id number] [place] [address] 61257- 5224 Mar, [facility] [id number] [place] [address] 95753- 3562 Feb, Major depression, recurrent 296.30 and Generalized anxiety disorder 300.02 [facility] [address] [id number] [place] [address] 66802- 0941 Feb, [facility] [id number] [place] [address] 15967- 8211 Feb, [facility] [address] [id number] [place] [address] 72992- 0337 Jan, Chronic pain due to injury 338.21 ; Seizures 780.39 ; COPD ( chronic obstructive pulmonary disease) 496 ; BPH (benign prostatic hyperplasia) 600.00 ; Tobacco use disorder 305.1 ; Generalized osteoarthrosis, unspecified site 715.00 ; Anxiety 300.00 ; GERD (gastroesophageal reflux disease) 530.81 and Hypercholesteremia 272.0 [place] [id number] [place] [address] 44642- 2475 Jan, [facility] [id number] [place] [address] 87595- 8465 Jan, [place] [address] [place] [id number] [place] [address] 64506- 9299 Jan, [place] [address] [place] [address] [id number] [place] [address] 61658- 3038 Jan, Seizures 780.39 ; COPD (chronic obstructive pulmonary disease) 496 ; Chronic pain due to injury 338.21 ; BPH (benign prostatic hyperplasia) 600.00 ; Tobacco use disorder 305.1 ; Generalized osteoarthrosis, unspecified site 715.00 ; Encounter for long-term (current) use of other medications V58.69 ; GERD (gastroesophageal reflux disease) 530.81 ; Hypercholesteremia 272.0 and Depression 311 [place] [address] [id number] [place] [address] 43226- 7650 Jan, [place] [address] [place] [id number] [place] [address] 99826- 5190 Jan, Chronic pain due to injury 338.21 [place] [address] [id number] [place] [address] 43625- 2839 Dec, [place] [address] [place] [address] [id number] [place] [address] 94766- 6945 Dec, Seizures 780.39 ; COPD (chronic obstructive pulmonary disease) 496 ; Chronic pain due to injury 338.21 ; Environmental allergies V15.09 ; GERD (gastroesophageal reflux disease) 530.81 ; Essential hypertension 401.9 ; Psoriasis 696.1 ; PTSD (post-traumatic stress disorder) 309.81 and Depression (emotion) 311 IMMUNIZATIONS No Known Immunizations SOCIAL HISTORY Never Assessed REASON FOR VISIT Requests return call PLAN OF CARE VITAL SIGNS MEDICATIONS Unknown [...] dioxide poisoning 2013 Hospitalization History [facility] [place]- CP and SOB 10/17/2017
--- OUTSIDE RECORDS SUMMARY | 2018-05-25 14:34 | XMS REPORT ---
Author Author YUMIKO MICHEL [facility] Address [address] [place] [address] Care Team Providers Care [employer] Examiner Name Role Phone YUMIKO MICHEL Unavailable PROBLEMS Type Condition ICD9-CM Code HGA03-MA Code Onset Dates Condition Status SNOMED Code Problem BPH (benign prostatic hyperplasia) N40.0 Active 924690160 Problem Major depressive disorder, recurrent episode F33.9 Active 342904389 Problem LEROY (generalized anxiety disorder) F41.1 Active 00603280 Problem Spinal stenosis of lumbar region without neurogenic claudication M48.061 Active 36515211 Problem Post traumatic seizure disorder R56.1 Active 34890425 Problem Hypercholesterolemia E78.00 Active 68579669 Problem Irritable bladder N32.89 Active 591255659 Problem Gastroesophageal reflux disease, esophagitis presence not specified K21.9 Active 850301299 Problem Environmental allergies Z91.09 Active 990746534 Problem Tobacco abuse Z72.0 Active 37753002 Problem Chronic pain G89.29 Active 51394256 Problem Seizures R56.9 Active 90459987 Problem COPD (chronic obstructive pulmonary disease) J44.9 Active 62126747 Problem Generalized osteoarthritis M15.9 Active 756957342 ALLERGIES No Information ENCOUNTERS Encounter Location Date Diagnosis [facility] [id number] [place] [address] 21519- 8164 Feb, Spinal stenosis of lumbar region without neurogenic claudication M48.061 and Seizures R56.9 [facility] [id number] [place] [address] 31273- 7607 Feb, Chronic pain G89.29 [facility] [address] [place] [address] 48359- 4104 Feb, [facility] [id number] [place] [address] 22414- 5644 Feb, [place] [id number] [address] 3714 Jan, [facility] [id number] [place] [address] 49794- 4113 Jan, [facility] [id number] [place] [address] 89634- 6368 Jan, [facility] [id number] [place] [address] 78512- 2770 Jan, Chronic pain G89.29 [place] [id number] [place] [address] 14096- 3579 Jan, Generalized osteoarthritis M15.9 ; COPD (chronic obstructive pulmonary disease) J44.9 ; LEROY (generalized anxiety disorder) F41.1 and Gastroesophageal reflux disease, esophagitis presence not specified K21.9 [place] [id number] [place] [address] 55506- 9664 Dec, Chronic pain G89.29 [place] [id number] [place] [address] 07793- 7083 Dec, Anxiety F41.9 and COPD (chronic obstructive pulmonary disease) J44.9 [place] [id number] [place] [address] 35860- 0980 November, Chronic pain G89.29 [place] [id number] [place] [address] 39090- 3497 November, Medicare annual wellness visit, initial Z00.00 ; COPD ( chronic obstructive pulmonary disease) J44.9 ; Major depressive disorder, recurrent episode F33.9 ; Gastroesophageal reflux disease, esophagitis presence not specified K21.9 ; Hypercholesterolemia E78.00 ; Seizures R56.9 ; Chronic pain G89.29 ; BPH (benign prostatic hyperplasia) N40.0 and Encounter for immunization Z23 [place] [address] [place] [address] 76482- 8336 November, Chronic pain G89.29 [place] [id number] [place] [address] 79022- 5555 Oct, [facility] [address] 65531- 5889 Oct, Chronic pain G89.29 [place] [address] 43667- 3271 Sep, [place] [address] 36525- 8751 Sep, COPD (chronic obstructive pulmonary disease) J44.9 ; Tobacco abuse Z72.0 ; Major depressive disorder, recurrent episode F33.9 and Hypercholesterolemia E78.00 [place] [address] 07768- 1932 Sep, [place] [address] 44174- 9119 Sep, Hypercholesterolemia E78.00 [place] [address] 12214- 9046 Sep, Chronic pain G89.29 ; COPD (chronic obstructive pulmonary disease) J44.9 ; Major depressive disorder, recurrent episode F33.9 ; Post traumatic seizure disorder R56.1 and Hypercholesterolemia E78.00 [place] [id number] [place] [address] 92519- 0638 Sep, Chronic pain G89.29 [place] [address] 43052- 3045 07 Aug, 2017 Major depressive disorder, recurrent episode F33.9 and Gastroesophageal reflux disease, esophagitis presence not specified K21.9 [place] [id number] [place] [address] 74914- 4344 06 Aug, 2017 Chronic pain G89.29 [place] [address] 80619- 8828 Jul, Other chronic pain G89.29 and Anxiety F41.9 [place] [address] 66810- 7623 15 Jun, 2017 Chronic pain G89.29 and Seizures R56.9 [place] [address] 15731- 7812 Jun, Other chronic pain G89.29 and Anxiety F41.9 [place] [address] 53915- 9028 May, COPD (chronic obstructive pulmonary disease) J44.9 [place] [address] 55046- 0912 May, Other chronic pain G89.29 and Anxiety F41.9 [place] [address] 20338- 3620 Apr, Other chronic pain G89.29 and Anxiety F41.9 [place] [address] 55388- 0074 Mar, Anxiety F41.9 and Other chronic pain G89.29 [place] [address] 58966- 8110 Feb, [place] [address] 86498- 9438 Feb, Anxiety F41.9 and Other chronic pain G89.29 [place] [address] 71829- 3633 Feb, [place] [address] 50102- 7443 Feb, COPD (chronic obstructive pulmonary disease) J44.9 ; Sleep apnea due to high altitude G47.31 and Oxygen desaturation during sleep G47.34 [place] [address] 45709- 8488 Jan, Other chronic pain G89.29 and Anxiety F41.9 [place] [id number] [place] [address] 58507- 8948 Jan, [place] [id number] [place] [address] 36459- 3162 Dec, Anxiety F41.9 and Other chronic pain G89.29 [facility] [id number] [place] [address] 44027- 5501 16 Dec, 2016 [facility] [id number] [place] [address] 39708- 8197 Dec, [facility] [address] 92130- 3512 Dec, Seizures R56.9 ; Chronic pain G89.29 [...] and COPD (chronic obstructive pulmonary disease) J44.9 [place] [id number] [place] [address] 08710- 6689 Dec, [place] [id number] [place] [address] 11368- 7579 Dec, [place] [id number] [place] [address] 42092- 1984 Dec, Generalized osteoarthritis M15.9 and Anxiety F41.9 [place] [id number] [place] [address] 97642- 8640 November, Status post shoulder surgery Z98.890 [facility] [id number] [place] [address] 10277- 8357 November, Generalized osteoarthritis M15.9 and Anxiety F41.9 [facility] [id number] [place] [address] 97781- 1268 Oct, [facility] [id number] [place] [address] 55319- 9726 Oct, Bilateral hearing loss, unspecified hearing loss [...] ; Anxiety F41.9 and Environmental allergies Z91.09 [place] [address] 05521- 3225 Oct, Chronic pain G89.29 and LEROY (generalized anxiety disorder) F41.[address] 52801- 3458 Sep, [address] 35302- 3740 Sep, Tear of right rotator cuff, unspecified [...] disease) J44.9 and Hearing reduced, bilateral H91.93 [place] [address] 20309- 8184 Sep, LEROY (generalized anxiety disorder) F41.1 [place] [address] 53095- 6053 Aug, [place] [address] 78298- 1561 Aug, Tear of right rotator cuff, unspecified tear extent M75.101 [place] [address] [place] [address]- 8975 Aug, Seizures R56.9 ; Chronic pain G89.29 ; Generalized osteoarthritis M15.9 ; COPD (chronic obstructive pulmonary disease) J44.9 ; LEROY (generalized anxiety disorder) F41.1 ; Gastroesophageal reflux disease, esophagitis presence not specified K21.9 ; Scabies B86 ; Hypercholesterolemia E78.00 ; Irritable bladder N32.89 and Edema, unspecified type R60.9 [place] [id number] [place] [address] 96570- 2917 Jul, Major depressive disorder, recurrent episode F33.9 [place] [address] 04326- 7887 Jul, Seizures R56.9 ; Hypercholesterolemia E78.00 ; BPH (benign prostatic hyperplasia) N40.0 ; Major depressive disorder, recurrent episode F33.9 and Edema, unspecified type R60.9 [place] [address] 83581- 3862 Jul, Chronic pain G89.29 and LEROY (generalized anxiety disorder) F41.1 [place] [address] 01431- 0059 Jul, Seizures R56.9 ; COPD (chronic obstructive [...] shoulder M25.511 and Other chronic pain G89.29 [place] [id number] [place] [address] 34880- 6688 Jun, [place] [id number] [place] [address] 84251- 6865 May, [place] [id number] [address] 2543 Apr, [facility] [id number] [place] [address] 56849 2541 Apr, Seizures R56.9 ; COPD (chronic obstructive pulmonary disease ) J44.9 ; BPH (benign prostatic hyperplasia) N40.0 ; Chronic pain G89.29 ; Tobacco abuse Z72.0 ; LEROY (generalized anxiety disorder) F41.1 ; Environmental allergies Z91.09 ; Irritable bladder N32.89 and Hypercholesterolemia E78.00 [facility] [id number] [place] [address] 21503 2546 Mar, [facility] [id number] [place] [address] 45923 2546 Mar, [facility] [id number] [place] [address] 62636 2546 Mar, [facility] [id number] [place] [address] 01214 2546 Mar, [facility] [id number] [place] [address] 18378 2546 Feb, [facility] [id number] [place] [address] 72549 2546 Feb, Chronic pain G89.29 [facility] [id number] [place] [address] 99582 2546 Feb, [facility] [address] [place] [address] 03204 2546 Jan, [facility] [id number] [address] 2546 Dec, [facility] [id number] [place] [address] 04927 2546 Dec, [facility] [address] [place] [address] 22997 2546 Dec, Seizures R56.9 ; COPD (chronic obstructive pulmonary disease ) J44.9 ; Chronic pain G89.29 ; BPH (benign prostatic hyperplasia) N40.0 ; Generalized osteoarthritis M15.9 ; Hypercholesterolemia E78.0 ; Overactive bladder N32.81 ; Insomnia, unspecified type G47.00 ; Other depression F32.8 ; Environmental allergies Z91.09 and Gastroesophageal reflux disease, esophagitis presence not specified K21.9 [place] [id number] [place] [address] 87434- 9357 November, Chronic pain due to trauma G89.21 and Anxiety F41.9 [place] [address] 02153- 3904 Oct, [place] [address] 20192- 2626 Sep, [place] [address] 27236- 9233 Sep, [place] [address] 87771- 0176 Sep, [place] [id number] [place] [address] 05594- 1353 Sep, Seizures R56.9 ; Major depressive disorder, recurrent episode F33.9 and LEROY (generalized anxiety disorder) F41.1 [place] [id number] [place] [address] 81327- 2837 Aug, [place] [id number] [place] [address] 75534- 8639 Aug, COPD (chronic obstructive pulmonary disease) J44.9 ; Chronic pain G89.29 ; BPH (benign prostatic hyperplasia) N40.0 ; Tobacco abuse Z72.0 ; Generalized osteoarthritis M15.9 ; Seizures R56.9 ; Overactive bladder N32.81 ; Depression F32.9 and Anxiety F41.9 [place] [id number] [place] [address] 28171- 1721 Jul, Essential (primary) hypertension I10 ; Pure hypercholesterolemia E78.0 ; Generalized osteoarthrosis, unspecified site 715.00 and Other prison (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 Z79.899 [facility] [id number] [place] [address] 11805- 9977 Jul, [facility] [id number] [place] [address] 67998- 3938 Jul, [facility] [id number] [place] [address] 39598- 5825 Jun, [facility] [address] 99269- 8404 May, [facility] [address] 78168- 6536 Apr, [facility] [id number] [place] [address] 46647- 9464 Apr, Seizures R56.9 ; COPD (chronic obstructive pulmonary disease ) J44.9 ; Chronic pain G89.29 ; BPH (benign prostatic hyperplasia) N40.0 ; Tobacco abuse Z72.0 ; Generalized osteoarthritis M15.9 ; Insomnia G47.00 ; Anxiety F41.9 and GERD (gastroesophageal reflux disease) K21.9 [facility] [id number] [place] [address] 11191- 6618 Apr, [facility] [id number] [place] [address] 29724- 8557 Mar, [facility] [id number] [place] [address] 64917- 5594 Feb, Major depression, recurrent 296.30 and Generalized anxiety disorder 300.02 [facility] [id number] [place] [address] 29059- 6665 Feb, [facility] [id number] [place] [address] 34495- 5894 Feb, [facility] [id number] [place] [address] 24280- 5677 Jan, Chronic pain due to injury 338.21 ; Seizures 780.39 ; COPD ( chronic obstructive pulmonary disease) 496 ; BPH (benign prostatic hyperplasia) 600.00 ; Tobacco use disorder 305.1 ; Generalized osteoarthrosis, unspecified site 715.00 ; Anxiety 300.00 ; GERD (gastroesophageal reflux disease) 530.81 and Hypercholesteremia 272.0 [place] [address] [place] [address] 84085- 1882 Jan, [facility] [id number] [place] [address] 87251- 5184 Jan, [place] [id number] [place] [address] 78587- 2443 Jan, [place] [id number] [place] [address] 77774- 9267 Jan, Seizures 780.39 ; COPD (chronic obstructive pulmonary disease) 496 ; Chronic pain due to injury 338.21 ; BPH (benign prostatic hyperplasia) 600.00 ; Tobacco use disorder 305.1 ; Generalized osteoarthrosis, unspecified site 715.00 ; Encounter for long-term (current) use of other medications V58.69 ; GERD (gastroesophageal reflux disease) 530.81 ; Hypercholesteremia 272.0 and Depression [address] [place] [id number] [place] [address] 21059- 2247 Jan, [place] [id number] [place] [address] 98801- 0823 Jan, Chronic pain due to injury 338.21 [place] [id number] [place] [address] 07768- 9229 Dec, [place] [id number] [place] [address] 57022- 5617 Dec, Seizures 780.39 ; COPD (chronic obstructive pulmonary disease) 496 ; Chronic pain due to injury 338.21 ; Environmental allergies V15.09 ; GERD (gastroesophageal reflux disease) 530.81 ; Essential hypertension 401.9 ; Psoriasis 696.1 ; PTSD (post-traumatic stress disorder) 309.81 and Depression (emotion) 311 IMMUNIZATIONS No Known Immunizations SOCIAL HISTORY Never Assessed REASON FOR VISIT Cane PLAN OF CARE VITAL SIGNS MEDICATIONS Unknown [...] dioxide poisoning 2013 Hospitalization History [facility] [place]- CP and SOB 10/17/2017
--- OUTSIDE RECORDS SUMMARY | 2018-05-25 14:34 | XMS REPORT ---
Author Author YUMIKO MICHEL [facility] Address [address] [place] [address] Care Team Providers Care College Director Name Role Phone YUMIKO MICHEL Unavailable PROBLEMS Type Condition ICD9-CM Code JJC37-CK Code Onset Dates Condition Status SNOMED Code Problem BPH (benign prostatic hyperplasia) N40.0 Active 822785750 Problem Major depressive disorder, recurrent episode F33.9 Active 112713778 Problem LEROY (generalized anxiety disorder) F41.1 Active 81483124 Problem Spinal stenosis of lumbar region without neurogenic claudication M48.061 Active 79616764 Problem Post traumatic seizure disorder R56.1 Active 13235989 Problem Hypercholesterolemia E78.00 Active 11762872 Problem Irritable bladder N32.89 Active 682608467 Problem Gastroesophageal reflux disease, esophagitis presence not specified K21.9 Active 730340777 Problem Environmental allergies Z91.09 Active 297101442 Problem Tobacco abuse Z72.0 Active 48879793 Problem Chronic pain G89.29 Active 64272057 Problem Seizures R56.9 Active 52304029 Problem COPD (chronic obstructive pulmonary disease) J44.9 Active 57197289 Problem Generalized osteoarthritis M15.9 Active 800670725 ALLERGIES No Information ENCOUNTERS Encounter Location Date Diagnosis [facility] [id number] [place] [address] 95669- 1447 Feb, Spinal stenosis of lumbar region without neurogenic claudication M48.061 and Seizures R56.9 [facility] [id number] [place] [address] 74720- 5210 Feb, Chronic pain G89.29 [facility] [address] [place] [address] 25382- 3754 Feb, [facility] [address] [place] [address] 27883- 2488 Feb, [place] [id number], [place] [address] Jan, [facility] [id number] [place] [address] 87720- 7179 Jan, [facility] [id number] [place] [address] 78194- 9031 Jan, [facility] [id number] [place] [address] 12458- 4965 Jan, Chronic pain G89.29 [place] [id number] [place] [address] 25421- 3588 Jan, Generalized osteoarthritis M15.9 ; COPD (chronic obstructive pulmonary disease) J44.9 ; LEROY (generalized anxiety disorder) F41.1 and Gastroesophageal reflux disease, esophagitis presence not specified K21.9 [place] [id number] [place] [address] 19859- 2271 Dec, Chronic pain G89.29 [place] [id number] [place] [address] 71449- 4041 Dec, Anxiety F41.9 and COPD (chronic obstructive pulmonary disease) J44.9 [place] [id number] [place] [address] 80628- 6749 November, Chronic pain G89.29 [place] [id number] [place] [address] 19284- 5121 November, Medicare annual wellness visit, initial Z00.00 ; COPD ( chronic obstructive pulmonary disease) J44.9 ; Major depressive disorder, recurrent episode F33.9 ; Gastroesophageal reflux disease, esophagitis presence not specified K21.9 ; Hypercholesterolemia E78.00 ; Seizures R56.9 ; Chronic pain G89.29 ; BPH (benign prostatic hyperplasia) N40.0 and Encounter for immunization Z23 [place] [address] [place] [address] 35520- 0108 November, Chronic pain G89.29 [place] [id number] [place] [address] 64681- 5040 Oct, [facility] [address] 86860- 2027 Oct, Chronic pain G89.29 [place] [address] 72687- 6658 Sep, [place] [address] 60284- 3022 Sep, COPD (chronic obstructive pulmonary disease) J44.9 ; Tobacco abuse Z72.0 ; Major depressive disorder, recurrent episode F33.9 and Hypercholesterolemia E78.00 [place] [address] 00200- 9419 Sep, [place] [address] 87814- 0680 Sep, Hypercholesterolemia E78.00 [place] [address] 41977- 3287 Sep, Chronic pain G89.29 ; COPD (chronic obstructive pulmonary disease) J44.9 ; Major depressive disorder, recurrent episode F33.9 ; Post traumatic seizure disorder R56.1 and Hypercholesterolemia E78.00 [place] [id number] [place] [address] 46761- 6047 Sep, Chronic pain G89.29 [place] [address] 25852- 1672 07 Aug, 2017 Major depressive disorder, recurrent episode F33.9 and Gastroesophageal reflux disease, esophagitis presence not specified K21.9 [place] [id number] [place] [address] 72169- 5729 06 Aug, 2017 Chronic pain G89.29 [place] [address] 55315- 4430 Jul, Other chronic pain G89.29 and Anxiety F41.9 [place] [address] 51164- 4958 15 Jun, 2017 Chronic pain G89.29 and Seizures R56.9 [place] [address] 57778- 6536 Jun, Other chronic pain G89.29 and Anxiety F41.9 [place] [address] 10130- 9202 May, COPD (chronic obstructive pulmonary disease) J44.9 [place] [address] 14659- 8655 May, Other chronic pain G89.29 and Anxiety F41.9 [place] [address] 62418- 4944 Apr, Other chronic pain G89.29 and Anxiety F41.9 [place] [address] 28268- 1328 Mar, Anxiety F41.9 and Other chronic pain G89.29 [place] [address] 05562- 4103 Feb, [place] [address] 91047- 0230 Feb, Anxiety F41.9 and Other chronic pain G89.29 [place] [address] 32577- 4649 Feb, [place] [address] 35845- 4068 Feb, COPD (chronic obstructive pulmonary disease) J44.9 ; Sleep apnea due to high altitude G47.31 and Oxygen desaturation during sleep G47.34 [place] [address] 87479- 3854 Jan, Other chronic pain G89.29 and Anxiety F41.9 [place] [id number] [place] [address] 76611- 2417 Jan, [place] [id number] [place] [address] 42462- 1672 Dec, Anxiety F41.9 and Other chronic pain G89.29 [facility] [id number] [place] [address] 46853- 8702 16 Dec, 2016 [facility] [id number] [place] [address] 83556- 6923 Dec, [facility] [address] 13255- 6242 Dec, Seizures R56.9 ; Chronic pain G89.29 [...] and COPD (chronic obstructive pulmonary disease) J44.9 [place] [id number] [place] [address] 67470- 9762 Dec, [place] [id number] [place] [address] 34463- 7926 Dec, [place] [id number] [place] [address] 56169- 5980 Dec, Generalized osteoarthritis M15.9 and Anxiety F41.9 [place] [id number] [place] [address] 15863- 9735 November, Status post shoulder surgery Z98.890 [facility] [id number] [place] [address] 17237- 4247 November, Generalized osteoarthritis M15.9 and Anxiety F41.9 [facility] [id number] [place] [address] 26038- 8413 Oct, [facility] [id number] [place] [address] 46181- 4964 Oct, Bilateral hearing loss, unspecified hearing loss [...] ; Anxiety F41.9 and Environmental allergies Z91.09 [place] [address] 64573- 3468 Oct, Chronic pain G89.29 and LEROY (generalized anxiety disorder) F41.[address] 42443- 6290 Sep, [address] 26654- 3168 Sep, Tear of right rotator cuff, unspecified [...] disease) J44.9 and Hearing reduced, bilateral H91.93 [place] [address] 88154- 2234 Sep, LEROY (generalized anxiety disorder) F41.1 [place] [address] 57905- 3054 Aug, [place] [address] 86734- 1212 Aug, Tear of right rotator cuff, unspecified tear extent M75.101 [place] [address] [place] [address]- 8802 Aug, Seizures R56.9 ; Chronic pain G89.29 ; Generalized osteoarthritis M15.9 ; COPD (chronic obstructive pulmonary disease) J44.9 ; LEROY (generalized anxiety disorder) F41.1 ; Gastroesophageal reflux disease, esophagitis presence not specified K21.9 ; Scabies B86 ; Hypercholesterolemia E78.00 ; Irritable bladder N32.89 and Edema, unspecified type R60.9 [place] [id number] [place] [address] 98578- 7787 Jul, Major depressive disorder, recurrent episode F33.9 [place] [address] 10227- 4355 Jul, Seizures R56.9 ; Hypercholesterolemia E78.00 ; BPH (benign prostatic hyperplasia) N40.0 ; Major depressive disorder, recurrent episode F33.9 and Edema, unspecified type R60.9 [place] [address] 42389- 3797 Jul, Chronic pain G89.29 and LEROY (generalized anxiety disorder) F41.1 [place] [address] 24347- 8155 Jul, Seizures R56.9 ; COPD (chronic obstructive [...] shoulder M25.511 and Other chronic pain G89.29 [place] [id number] [place] [address] 12123- 4995 Jun, [place] [id number] [place] [address] 43079- 5753 May, [place] [id number] [address] 2543 Apr, [facility] [id number] [place] [address] 56915 2543 Apr, Seizures R56.9 ; COPD (chronic obstructive pulmonary disease ) J44.9 ; BPH (benign prostatic hyperplasia) N40.0 ; Chronic pain G89.29 ; Tobacco abuse Z72.0 ; LEROY (generalized anxiety disorder) F41.1 ; Environmental allergies Z91.09 ; Irritable bladder N32.89 and Hypercholesterolemia E78.00 [facility] [id number] [place] [address] 66122 2546 Mar, [facility] [id number] [place] [address] 01789 2546 Mar, [facility] [id number] [place] [address] 99050 2546 Mar, [facility] [id number] [place] [address] 31195 2546 Mar, [facility] [id number] [place] [address] 38706 2546 Feb, [facility] [id number] [place] [address] 47094 2546 Feb, Chronic pain G89.29 [facility] [id number] [place] [address] 23309 2546 Feb, [facility] [address] [place] [address] 05036 2546 Jan, [facility] [address] [address] 2546 Dec, [facility] [id number] [place] [address] 87260 2546 Dec, [facility] [address] [place] [address] 48451 2546 Dec, Seizures R56.9 ; COPD (chronic obstructive pulmonary disease ) J44.9 ; Chronic pain G89.29 ; BPH (benign prostatic hyperplasia) N40.0 ; Generalized osteoarthritis M15.9 ; Hypercholesterolemia E78.0 ; Overactive bladder N32.81 ; Insomnia, unspecified type G47.00 ; Other depression F32.8 ; Environmental allergies Z91.09 and Gastroesophageal reflux disease, esophagitis presence not specified K21.9 [place] [id number] [place] [address] 72637- 5648 November, Chronic pain due to trauma G89.21 and Anxiety F41.9 [place] [address] 09127- 3486 Oct, [place] [address] 04640- 5069 Sep, [place] [address] 57858- 7822 Sep, [place] [address] 99456- 5313 Sep, [place] [id number] [place] [address] 88365- 1087 Sep, Seizures R56.9 ; Major depressive disorder, recurrent episode F33.9 and LEROY (generalized anxiety disorder) F41.1 [place] [id number] [place] [address] 45509- 1706 Aug, [place] [id number] [place] [address] 93992- 5693 Aug, COPD (chronic obstructive pulmonary disease) J44.9 ; Chronic pain G89.29 ; BPH (benign prostatic hyperplasia) N40.0 ; Tobacco abuse Z72.0 ; Generalized osteoarthritis M15.9 ; Seizures R56.9 ; Overactive bladder N32.81 ; Depression F32.9 and Anxiety F41.9 [place] [id number] [place] [address] 90765- 3121 Jul, Essential (primary) hypertension I10 ; Pure hypercholesterolemia E78.0 ; Generalized osteoarthrosis, unspecified site 715.00 and Other longterm (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 Z79.899 [facility] [id number] [place] [address] 22589- 8769 Jul, [facility] [id number] [place] [address] 26538- 3933 Jul, [facility] [id number] [place] [address] 16611- 8894 Jun, [facility] [address] 57163- 4672 May, [facility] [address] 62111- 4309 Apr, [facility] [id number] [place] [address] 81766- 7937 Apr, Seizures R56.9 ; COPD (chronic obstructive pulmonary disease ) J44.9 ; Chronic pain G89.29 ; BPH (benign prostatic hyperplasia) N40.0 ; Tobacco abuse Z72.0 ; Generalized osteoarthritis M15.9 ; Insomnia G47.00 ; Anxiety F41.9 and GERD (gastroesophageal reflux disease) K21.9 [facility] [id number] [place] [address] 24952- 9765 Apr, [facility] [id number] [place] [address] 23311- 8643 Mar, [facility] [id number] [place] [address] 78886- 8478 Feb, Major depression, recurrent 296.30 and Generalized anxiety disorder 300.02 [facility] [id number] [place] [address] 99160- 5524 Feb, [facility] [id number] [place] [address] 64599- 0317 Feb, [facility] [id number] [place] [address] 13352- 3128 Jan, Chronic pain due to injury 338.21 ; Seizures 780.39 ; COPD ( chronic obstructive pulmonary disease) 496 ; BPH (benign prostatic hyperplasia) 600.00 ; Tobacco use disorder 305.1 ; Generalized osteoarthrosis, unspecified site 715.00 ; Anxiety 300.00 ; GERD (gastroesophageal reflux disease) 530.81 and Hypercholesteremia 272.0 [place] [address] [place] [address] 48249- 1889 Jan, [facility] [id number] [place] [address] 82856- 0718 Jan, [place] [id number] [place] [address] 33759- 2345 Jan, [place] [id number] [place] [address] 87221- 3441 Jan, Seizures 780.39 ; COPD (chronic obstructive pulmonary disease) 496 ; Chronic pain due to injury 338.21 ; BPH (benign prostatic hyperplasia) 600.00 ; Tobacco use disorder 305.1 ; Generalized osteoarthrosis, unspecified site 715.00 ; Encounter for long-term (current) use of other medications V58.69 ; GERD (gastroesophageal reflux disease) 530.81 ; Hypercholesteremia 272.0 and Depression [address] [place] [id number] [place] [address] 60138- 0333 Jan, [place] [id number] [place] [address] 48508- 5460 Jan, Chronic pain due to injury 338.21 [place] [id number] [place] [address] 47682- 9978 Dec, [place] [id number] [place] [address] 47522- 6028 Dec, Seizures 780.39 ; COPD (chronic obstructive [...] dioxide poisoning 2013 Hospitalization History [facility] [place]- CP and SOB 10/17/2017
--- OUTSIDE RECORDS SUMMARY | 2018-05-25 14:35 | XMS REPORT ---
Author Author YUMIKO MICHEL [facility] Address [address] [place] [address] Care Team Providers Care Pig Handler Name Role Phone YUMIKO MICHEL Unavailable PROBLEMS Type Condition ICD9-CM Code EGE02-JO Code Onset Dates Condition Status SNOMED Code Problem BPH (benign prostatic hyperplasia) N40.0 Active 065960590 Problem Major depressive disorder, recurrent episode F33.9 Active 870150428 Problem LEROY (generalized anxiety disorder) F41.1 Active 45071014 Problem Spinal stenosis of lumbar region without neurogenic claudication M48.061 Active 91005814 Problem Post traumatic seizure disorder R56.1 Active 67009813 Problem Hypercholesterolemia E78.00 Active 46018414 Problem Irritable bladder N32.89 Active 279291133 Problem Gastroesophageal reflux disease, esophagitis presence not specified K21.9 Active 304430335 Problem Environmental allergies Z91.09 Active 601924151 Problem Tobacco abuse Z72.0 Active 81520672 Problem Chronic pain G89.29 Active 11896284 Problem Seizures R56.9 Active 77712568 Problem COPD (chronic obstructive pulmonary disease) J44.9 Active 70355819 Problem Generalized osteoarthritis M15.9 Active 826145664 ALLERGIES No Information ENCOUNTERS Encounter Location Date Diagnosis [facility] [id number] [place] [address] 69750- 9987 Feb, Spinal stenosis of lumbar region without neurogenic claudication M48.061 and Seizures R56.9 [facility] [id number] [place] [address] 93070- 8936 Feb, Chronic pain G89.29 [facility] [id number] [place] [address] 93917- 9629 Feb, [facility] [id number] [place] [address] 51416- 1420 Feb, [place] [id number] [address] Jan, [facility] [id number] [place] [address] 72970- 6299 Jan, [facility] [id number] [place] [address] 76327- 0386 Jan, [facility] [id number] [place] [address] 70933- 2835 Jan, Chronic pain G89.29 [place] [id number] [place] [address] 09430- 2184 Jan, Generalized osteoarthritis M15.9 ; COPD (chronic obstructive pulmonary disease) J44.9 ; LEROY (generalized anxiety disorder) F41.1 and Gastroesophageal reflux disease, esophagitis presence not specified K21.9 [place] [id number] [place] [address] 91788- 4978 Dec, Chronic pain G89.29 [place] [id number] [place] [address] 37698- 4856 Dec, Anxiety F41.9 and COPD (chronic obstructive pulmonary disease) J44.9 [place] [id number] [place] [address] 48351- 4450 November, Chronic pain G89.29 [place] [id number] [place] [address] 03296- 8230 November, Medicare annual wellness visit, initial Z00.00 ; COPD ( chronic obstructive pulmonary disease) J44.9 ; Major depressive disorder, recurrent episode F33.9 ; Gastroesophageal reflux disease, esophagitis presence not specified K21.9 ; Hypercholesterolemia E78.00 ; Seizures R56.9 ; Chronic pain G89.29 ; BPH (benign prostatic hyperplasia) N40.0 and Encounter for immunization Z23 [place] [address] [place] [address] 30920- 9842 November, Chronic pain G89.29 [place] [id number] [place] [address] 28989- 0366 Oct, [facility] [address] 08561- 8129 Oct, Chronic pain G89.29 [place] [address] 43348- 8234 Sep, [place] [address] 97807- 2885 Sep, COPD (chronic obstructive pulmonary disease) J44.9 ; Tobacco abuse Z72.0 ; Major depressive disorder, recurrent episode F33.9 and Hypercholesterolemia E78.00 [place] [address] 77992- 2137 Sep, [place] [address] 37662- 9553 Sep, Hypercholesterolemia E78.00 [place] [address] 73091- 9721 Sep, Chronic pain G89.29 ; COPD (chronic obstructive pulmonary disease) J44.9 ; Major depressive disorder, recurrent episode F33.9 ; Post traumatic seizure disorder R56.1 and Hypercholesterolemia E78.00 [place] [id number] [place] [address] 26135- 3840 Sep, Chronic pain G89.29 [place] [address] 42683- 1052 07 Aug, 2017 Major depressive disorder, recurrent episode F33.9 and Gastroesophageal reflux disease, esophagitis presence not specified K21.9 [place] [id number] [place] [address] 26716- 1619 06 Aug, 2017 Chronic pain G89.29 [place] [address] 01848- 2642 Jul, Other chronic pain G89.29 and Anxiety F41.9 [place] [address] 68395- 8751 15 Jun, 2017 Chronic pain G89.29 and Seizures R56.9 [place] [address] 87790- 5291 Jun, Other chronic pain G89.29 and Anxiety F41.9 [place] [address] 25438- 7087 May, COPD (chronic obstructive pulmonary disease) J44.9 [place] [address] 44397- 0975 May, Other chronic pain G89.29 and Anxiety F41.9 [place] [address] 76912- 4691 Apr, Other chronic pain G89.29 and Anxiety F41.9 [place] [address] 46434- 8064 Mar, Anxiety F41.9 and Other chronic pain G89.29 [place] [address] 13900- 8994 Feb, [place] [address] 43501- 2041 Feb, Anxiety F41.9 and Other chronic pain G89.29 [place] [address] 43819- 6499 Feb, [place] [address] 69882- 8665 Feb, COPD (chronic obstructive pulmonary disease) J44.9 ; Sleep apnea due to high altitude G47.31 and Oxygen desaturation during sleep G47.34 [place] [address] 61570- 8151 Jan, Other chronic pain G89.29 and Anxiety F41.9 [place] [id number] [place] [address] 35330- 5538 Jan, [facility] [place] [id number] [place] [address] 84010- 2948 Dec, Anxiety F41.9 and Other chronic pain G89.29 [facility] [id number] [place] [address] 23241- 3558 16 Dec, 2016 [facility] [id number] [place] [address] 02393- 7487 Dec, [facility] [address] 95832- 0654 Dec, Seizures R56.9 ; Chronic pain G89.29 [...] and COPD (chronic obstructive pulmonary disease) J44.9 [place] [id number] [place] [address] 44265- 0229 Dec, [place] [id number] [place] [address] 10073- 4457 Dec, [place] [id number] [place] [address] 83085- 1865 Dec, Generalized osteoarthritis M15.9 and Anxiety F41.9 [place] [id number] [place] [address] 14960- 2948 November, Status post shoulder surgery Z98.890 [facility] [id number] [place] [address] 02018- 0347 November, Generalized osteoarthritis M15.9 and Anxiety F41.9 [facility] [id number] [place] [address] 73493- 9721 Oct, [facility] [id number] [place] [address] 61175- 0081 Oct, Bilateral hearing loss, unspecified hearing loss [...] ; Anxiety F41.9 and Environmental allergies Z91.09 [place] [address] 57673- 1136 Oct, Chronic pain G89.29 and LEROY (generalized anxiety disorder) F41.[address] 52045- 1480 Sep, [address] 59535- 6258 Sep, Tear of right rotator cuff, unspecified [...] disease) J44.9 and Hearing reduced, bilateral H91.93 [place] [address] 38860- 3865 Sep, LEROY (generalized anxiety disorder) F41.1 [place] [address] 42275- 6362 Aug, [place] [address] 05814- 8333 Aug, Tear of right rotator cuff, unspecified tear extent M75.101 [place] [address] [place] [address]- 1724 Aug, Seizures R56.9 ; Chronic pain G89.29 ; Generalized osteoarthritis M15.9 ; COPD (chronic obstructive pulmonary disease) J44.9 ; LEROY (generalized anxiety disorder) F41.1 ; Gastroesophageal reflux disease, esophagitis presence not specified K21.9 ; Scabies B86 ; Hypercholesterolemia E78.00 ; Irritable bladder N32.89 and Edema, unspecified type R60.9 [place] [id number] [place] [address] 88746- 1031 Jul, Major depressive disorder, recurrent episode F33.9 [place] [address] 79077- 1221 Jul, Seizures R56.9 ; Hypercholesterolemia E78.00 ; BPH (benign prostatic hyperplasia) N40.0 ; Major depressive disorder, recurrent episode F33.9 and Edema, unspecified type R60.9 [place] [address] 88359- 2504 Jul, Chronic pain G89.29 and LEROY (generalized anxiety disorder) F41.1 [place] [address] 10571- 9591 Jul, Seizures R56.9 ; COPD (chronic obstructive [...] shoulder M25.511 and Other chronic pain G89.29 [place] [id number] [place] [address] 62111- 5506 Jun, [place] [id number] [place] [address] 44494- 8631 May, [place] [id number] [address] 2545 Apr, [facility] [id number] [place] [address] 76913 2548 Apr, Seizures R56.9 ; COPD (chronic obstructive pulmonary disease ) J44.9 ; BPH (benign prostatic hyperplasia) N40.0 ; Chronic pain G89.29 ; Tobacco abuse Z72.0 ; LEROY (generalized anxiety disorder) F41.1 ; Environmental allergies Z91.09 ; Irritable bladder N32.89 and Hypercholesterolemia E78.00 [facility] [id number] [place] [address] 25756 2546 Mar, [facility] [id number] [place] [address] 20011 2546 Mar, [facility] [id number] [place] [address] 20025 2546 Mar, [facility] [id number] [place] [address] 06945 2546 Mar, [facility] [id number] [place] [address] 85312 2546 Feb, [facility] [id number] [place] [address] 00550 2546 Feb, Chronic pain G89.29 [facility] [id number] [place] [address] 86136 2546 Feb, [facility] [address] [place] [address] 86891 2546 Jan, [facility] [id number] [address] 2546 Dec, [facility] [id number] [place] [address] 57536 2546 Dec, [facility] [address] [place] [address] 70666 2546 Dec, Seizures R56.9 ; COPD (chronic obstructive pulmonary disease ) J44.9 ; Chronic pain G89.29 ; BPH (benign prostatic hyperplasia) N40.0 ; Generalized osteoarthritis M15.9 ; Hypercholesterolemia E78.0 ; Overactive bladder N32.81 ; Insomnia, unspecified type G47.00 ; Other depression F32.8 ; Environmental allergies Z91.09 and Gastroesophageal reflux disease, esophagitis presence not specified K21.9 [place] [id number] [place] [address] 04984- 9591 November, Chronic pain due to trauma G89.21 and Anxiety F41.9 [place] [address] 94059- 6918 Oct, [place] [address] 95559- 1341 Sep, [place] [address] 90472- 0080 Sep, [place] [address] 46080- 4581 Sep, [place] [id number] [place] [address] 09626- 9811 Sep, Seizures R56.9 ; Major depressive disorder, recurrent episode F33.9 and LEROY (generalized anxiety disorder) F41.1 [place] [id number] [place] [address] 04208- 5968 Aug, [place] [id number] [place] [address] 60339- 3449 Aug, COPD (chronic obstructive pulmonary disease) J44.9 ; Chronic pain G89.29 ; BPH (benign prostatic hyperplasia) N40.0 ; Tobacco abuse Z72.0 ; Generalized osteoarthritis M15.9 ; Seizures R56.9 ; Overactive bladder N32.81 ; Depression F32.9 and Anxiety F41.9 [place] [id number] [place] [address] 78547- 4572 Jul, Essential (primary) hypertension I10 ; Pure hypercholesterolemia E78.0 ; Generalized osteoarthrosis, unspecified site 715.00 and Other mcc (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 Z79.899 [facility] [id number] [place] [address] 86041- 7754 Jul, [facility] [id number] [place] [address] 80394- 0398 Jul, [facility] [id number] [place] [address] 04100- 7130 Jun, [facility] [address] 03271- 3967 May, [facility] [address] 95961- 0784 Apr, [facility] [id number] [place] [address] 19201- 4678 Apr, Seizures R56.9 ; COPD (chronic obstructive pulmonary disease ) J44.9 ; Chronic pain G89.29 ; BPH (benign prostatic hyperplasia) N40.0 ; Tobacco abuse Z72.0 ; Generalized osteoarthritis M15.9 ; Insomnia G47.00 ; Anxiety F41.9 and GERD (gastroesophageal reflux disease) K21.9 [facility] [id number] [place] [address] 83248- 9299 Apr, [facility] [id number] [place] [address] 45089- 7635 Mar, [facility] [id number] [place] [address] 24148- 3820 Feb, Major depression, recurrent 296.30 and Generalized anxiety disorder 300.02 [facility] [id number] [place] [address] 27162- 8724 Feb, [facility] [id number] [place] [address] 43873- 7629 Feb, [facility] [id number] [place] [address] 79750- 8688 Jan, Chronic pain due to injury 338.21 ; Seizures 780.39 ; COPD ( chronic obstructive pulmonary disease) 496 ; BPH (benign prostatic hyperplasia) 600.00 ; Tobacco use disorder 305.1 ; Generalized osteoarthrosis, unspecified site 715.00 ; Anxiety 300.00 ; GERD (gastroesophageal reflux disease) 530.81 and Hypercholesteremia 272.0 [place] [address] [place] [address] 30853- 8719 Jan, [facility] [id number] [place] [address] 93550- 9093 Jan, [place] [id number] [place] [address] 28702- 5573 Jan, [place] [id number] [place] [address] 85346- 3756 Jan, Seizures 780.39 ; COPD (chronic obstructive pulmonary disease) 496 ; Chronic pain due to injury 338.21 ; BPH (benign prostatic hyperplasia) 600.00 ; Tobacco use disorder 305.1 ; Generalized osteoarthrosis, unspecified site 715.00 ; Encounter for long-term (current) use of other medications V58.69 ; GERD (gastroesophageal reflux disease) 530.81 ; Hypercholesteremia 272.0 and Depression 311 [place] [id number] [place] [address] 75672- 8105 Jan, [place] [id number] [place] [address] 50319- 8572 Jan, Chronic pain due to injury 338.21 [place] [id number] [place] [address] 18019- 0885 Dec, [place] [id number] [place] [address] 74917- 1561 Dec, Seizures 780.39 ; COPD (chronic obstructive pulmonary disease) 496 ; Chronic pain due to injury 338.21 ; Environmental allergies V15.09 ; GERD (gastroesophageal reflux disease) 530.81 ; Essential hypertension 401.9 ; Psoriasis 696.1 ; PTSD (post-traumatic stress disorder) 309.81 and Depression (emotion) 311 IMMUNIZATIONS No Known Immunizations SOCIAL HISTORY Never Assessed REASON FOR VISIT Requesting order PLAN OF CARE VITAL SIGNS MEDICATIONS Medication Instructions Dosage Frequency Start Date End Date Duration Status Cane - as directed Jan, Active RESULTS No Results PROCEDURES No Known [...] dioxide poisoning 2013 Hospitalization History [facility] [place]- CP and SOB 10/17/2017
--- OUTSIDE RECORDS SUMMARY | 2018-05-25 14:35 | XMS REPORT ---
Author Author YUMIKO MICHEL [facility] Address [address] [place] [address] Care Team Providers Care Licensed Master Social Worker Name Role Phone YUMIKO MICHEL Unavailable PROBLEMS Type Condition ICD9-CM Code HWB01-MF Code Onset Dates Condition Status SNOMED Code Problem BPH (benign prostatic hyperplasia) N40.0 Active 437443244 Problem Major depressive disorder, recurrent episode F33.9 Active 370005559 Problem LEROY (generalized anxiety disorder) F41.1 Active 26875124 Problem Spinal stenosis of lumbar region without neurogenic claudication M48.061 Active 67878288 Problem Post traumatic seizure disorder R56.1 Active 80071562 Problem Hypercholesterolemia E78.00 Active 86456166 Problem Irritable bladder N32.89 Active 189201921 Problem Gastroesophageal reflux disease, esophagitis presence not specified K21.9 Active 730274107 Problem Environmental allergies Z91.09 Active 417535798 Problem Tobacco abuse Z72.0 Active 41372475 Problem Chronic pain G89.29 Active 62869304 Problem Seizures R56.9 Active 17617212 Problem COPD (chronic obstructive pulmonary disease) J44.9 Active 83038094 Problem Generalized osteoarthritis M15.9 Active 172607380 ALLERGIES No Information ENCOUNTERS Encounter Location Date Diagnosis [facility] [id number] [place] [address] 96295- 7699 Feb, Spinal stenosis of lumbar region without neurogenic claudication M48.061 and Seizures R56.9 [facility] [address] [place] [id number] [place] [address] 69827- 1927 Feb, Chronic pain G89.29 [facility] [id number] [place] [address] 69894- 5084 Feb, [facility] [id number] [place] [address] 23509- 3008 Feb, [place] [address] [address] Jan, [facility] [id number] [place] [address] 48386- 2010 Jan, [facility] [id number] [place] [address] 17568- 0596 Jan, [facility] [id number] [place] [address] 66056- 1583 Jan, Chronic pain G89.29 [place] [id number] [place] [address] 83534- 2109 Jan, Generalized osteoarthritis M15.9 ; COPD (chronic obstructive pulmonary disease) J44.9 ; LEROY (generalized anxiety disorder) F41.1 and Gastroesophageal reflux disease, esophagitis presence not specified K21.9 [place] [id number] [place] [address] 02674- 3976 Dec, Chronic pain G89.29 [place] [id number] [place] [address] 25897- 0353 Dec, Anxiety F41.9 and COPD (chronic obstructive pulmonary disease) J44.9 [place] [id number] [place] [address] 50630- 6277 November, Chronic pain G89.29 [place] [address] [id number] [place] [address] 88582- 1876 November, Medicare annual wellness visit, initial Z00.00 ; COPD ( chronic obstructive pulmonary disease) J44.9 ; Major depressive disorder, recurrent episode F33.9 ; Gastroesophageal reflux disease, esophagitis presence not specified K21.9 ; Hypercholesterolemia E78.00 ; Seizures R56.9 ; Chronic pain G89.29 ; BPH (benign prostatic hyperplasia) N40.0 and Encounter for immunization Z23 [place] [address] [place] [address] 90473- 1323 November, Chronic pain G89.29 [place] [address] [place] [address] [id number] [place] [address] 88329- 8142 Oct, [facility] [address] 31449- 5988 Oct, Chronic pain G89.29 [place] [address] 53136- 5863 Sep, [place] [address] 01198- 4566 Sep, COPD (chronic obstructive pulmonary disease) J44.9 ; Tobacco abuse Z72.0 ; Major depressive disorder, recurrent episode F33.9 and Hypercholesterolemia E78.00 [place] [address] 16314- 9413 Sep, [place] [address] 93888- 8451 Sep, Hypercholesterolemia E78.00 [place] [address] 61577- 2331 Sep, Chronic pain G89.29 ; COPD (chronic obstructive pulmonary disease) J44.9 ; Major depressive disorder, recurrent episode F33.9 ; Post traumatic seizure disorder R56.1 and Hypercholesterolemia E78.00 [place] [address] [place] [address] [id number] [place] [address] 24155- 8138 Sep, Chronic pain G89.29 [place] [address] 41034- 8955 07 Aug, 2017 Major depressive disorder, recurrent episode F33.9 and Gastroesophageal reflux disease, esophagitis presence not specified K21.9 [place] [id number] [place] [address] 51652- 0656 06 Aug, 2017 Chronic pain G89.29 [place] [address] 97483- 3198 Jul, Other chronic pain G89.29 and Anxiety F41.9 [place] [address] 06548- 1359 15 Jun, 2017 Chronic pain G89.29 and Seizures R56.9 [place] [address] 50176- 6477 Jun, Other chronic pain G89.29 and Anxiety F41.9 [place] [address] 73962- 9177 May, COPD (chronic obstructive pulmonary disease) J44.9 [place] [address] 73501- 3487 May, Other chronic pain G89.29 and Anxiety F41.9 [place] [address] 14424- 3942 Apr, Other chronic pain G89.29 and Anxiety F41.9 [place] [address] 00323- 2155 Mar, Anxiety F41.9 and Other chronic pain G89.29 [place] [address] 04078- 7245 Feb, [place] [address] 77814- 4535 Feb, Anxiety F41.9 and Other chronic pain G89.29 [place] [address] 37771- 8402 Feb, [place] [address] 47689- 0726 Feb, COPD (chronic obstructive pulmonary disease) J44.9 ; Sleep apnea due to high altitude G47.31 and Oxygen desaturation during sleep G47.34 [place] [address] 78510- 9037 Jan, Other chronic pain G89.29 and Anxiety F41.9 [place] [address] [place] [address] [id number] [place] [address] 63039- 4815 Jan, [place] [address] [place] [address] [id number] [place] [address] 40834- 2579 Dec, Anxiety F41.9 and Other chronic pain G89.29 [facility] [id number] [place] [address] 13965- 0102 16 Dec, 2016 [facility] [id number] [place] [address] 50387- 6773 Dec, [facility] [address] 13691- 3783 Dec, Seizures R56.9 ; Chronic pain G89.29 [...] and COPD (chronic obstructive pulmonary disease) J44.9 [place] [address] [address] [id number] [place] [address] 01642- 4129 Dec, [place] [address] [place] [address] [id number] [place] [address] 10157- 2832 Dec, [place] [address] [address] [id number] [place] [address] 60397- 9787 Dec, Generalized osteoarthritis M15.9 and Anxiety F41.9 [place] [address] [place] [address] [id number] [place] [address] 81781- 1691 November, Status post shoulder surgery Z98.890 [facility] [id number] [place] [address] 36308- 5430 November, Generalized osteoarthritis M15.9 and Anxiety F41.9 [facility] [id number] [place] [address] 81105- 4645 Oct, [facility] [id number] [place] [address] 57471- 9601 Oct, Bilateral hearing loss, unspecified hearing loss [...] ; Anxiety F41.9 and Environmental allergies Z91.09 [place] [address] 17617- 2147 Oct, Chronic pain G89.29 and LEROY (generalized anxiety disorder) F41.[address] 76131- 5785 Sep, [address] 11249- 9447 Sep, Tear of right rotator cuff, unspecified [...] disease) J44.9 and Hearing reduced, bilateral H91.93 [place] [address] 10707- 9985 Sep, LEROY (generalized anxiety disorder) F41.1 [place] [address] 98460- 8682 Aug, [place] [address] 91889- 4748 Aug, Tear of right rotator cuff, unspecified tear extent M75.101 [place] [address] [place] [address]- 7815 Aug, Seizures R56.9 ; Chronic pain G89.29 ; Generalized osteoarthritis M15.9 ; COPD (chronic obstructive pulmonary disease) J44.9 ; LEROY (generalized anxiety disorder) F41.1 ; Gastroesophageal reflux disease, esophagitis presence not specified K21.9 ; Scabies B86 ; Hypercholesterolemia E78.00 ; Irritable bladder N32.89 and Edema, unspecified type R60.9 [place] [address] [place] [id number] [place] [address] 08159- 7152 Jul, Major depressive disorder, recurrent episode F33.9 [place] [address] 79504- 1157 Jul, Seizures R56.9 ; Hypercholesterolemia E78.00 ; BPH (benign prostatic hyperplasia) N40.0 ; Major depressive disorder, recurrent episode F33.9 and Edema, unspecified type R60.9 [place] [address] 53889- 9782 Jul, Chronic pain G89.29 and LEROY (generalized anxiety disorder) F41.1 [place] [address] 00804- 9928 Jul, Seizures R56.9 ; COPD (chronic obstructive [...] shoulder M25.511 and Other chronic pain G89.29 [place] [address] [place] [id number] [place] [address] 70576- 2603 Jun, [place] [address] [address] [id number] [place] [address] 42715- 6087 May, [place] [id number] [address] 2544 Apr, [facility] [id number] [place] [address] 40643 2549 Apr, Seizures R56.9 ; COPD (chronic obstructive pulmonary disease ) J44.9 ; BPH (benign prostatic hyperplasia) N40.0 ; Chronic pain G89.29 ; Tobacco abuse Z72.0 ; LEROY (generalized anxiety disorder) F41.1 ; Environmental allergies Z91.09 ; Irritable bladder N32.89 and Hypercholesterolemia E78.00 [facility] [id number] [place] [address] 80013 2546 Mar, [facility] [id number] [place] [address] 80009 2546 Mar, [facility] [id number] [place] [address] 09133 2546 Mar, [facility] [id number] [place] [address] 23739 2546 Mar, [facility] [id number] [place] [address] 62799 2546 Feb, [facility] [id number] [place] [address] 18215 2546 Feb, Chronic pain G89.29 [facility] [id number] [place] [address] 34621 2546 Feb, [facility] [address] [place] [address] 12951 2546 Jan, [facility] [id number], [place] [address] 2546 Dec, [facility] [id number] [place] [address] 70881 2546 Dec, [facility] [address] [place] [address] 88805 2546 Dec, Seizures R56.9 ; COPD (chronic obstructive pulmonary disease ) J44.9 ; Chronic pain G89.29 ; BPH (benign prostatic hyperplasia) N40.0 ; Generalized osteoarthritis M15.9 ; Hypercholesterolemia E78.0 ; Overactive bladder N32.81 ; Insomnia, unspecified type G47.00 ; Other depression F32.8 ; Environmental allergies Z91.09 and Gastroesophageal reflux disease, esophagitis presence not specified K21.9 [place] [address] [id number] [place] [address] 71763- 2808 November, Chronic pain due to trauma G89.21 and Anxiety F41.9 [place] [address] 04038- 5564 Oct, [place] [address] 47269- 0106 Sep, [place] [address] 27516- 4776 Sep, [place] [address] 88940- 4196 Sep, [place] [address] [place] [id number] [place] [address] 47445- 2618 Sep, Seizures R56.9 ; Major depressive disorder, recurrent episode F33.9 and LEROY (generalized anxiety disorder) F41.1 [place] [address] [place] [id number] [place] [address] 96973- 9096 Aug, [place] [id number] [place] [address] 15977- 9348 Aug, COPD (chronic obstructive pulmonary disease) J44.9 ; Chronic pain G89.29 ; BPH (benign prostatic hyperplasia) N40.0 ; Tobacco abuse Z72.0 ; Generalized osteoarthritis M15.9 ; Seizures R56.9 ; Overactive bladder N32.81 ; Depression F32.9 and Anxiety F41.9 [place] [address] [place] [id number] [place] [address] 05675- 4482 Jul, Essential (primary) hypertension I10 ; Pure hypercholesterolemia E78.0 ; Generalized osteoarthrosis, unspecified site 715.00 and Other fpc (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 Z79.899 [facility] [id number] [place] [address] 72914- 8564 Jul, [facility] [id number] [place] [address] 03304- 6677 Jul, [facility] [id number] [place] [address] 38716- 9422 Jun, [facility] [address] 42580- 0982 May, [facility] [address] 99782- 9841 Apr, [facility] [address] [id number] [place] [address] 04034- 0191 Apr, Seizures R56.9 ; COPD (chronic obstructive pulmonary disease ) J44.9 ; Chronic pain G89.29 ; BPH (benign prostatic hyperplasia) N40.0 ; Tobacco abuse Z72.0 ; Generalized osteoarthritis M15.9 ; Insomnia G47.00 ; Anxiety F41.9 and GERD (gastroesophageal reflux disease) K21.9 [facility] [id number] [place] [address] 83822- 3844 Apr, [facility] [id number] [place] [address] 21716- 5884 Mar, [facility] [id number] [place] [address] 44727- 1877 Feb, Major depression, recurrent 296.30 and Generalized anxiety disorder 300.02 [facility] [id number] [place] [address] 17246- 5645 Feb, [facility] [id number] [place] [address] 50930- 0773 Feb, [facility] [id number] [place] [address] 30224- 7400 Jan, Chronic pain due to injury 338.21 ; Seizures 780.39 ; COPD ( chronic obstructive pulmonary disease) 496 ; BPH (benign prostatic hyperplasia) 600.00 ; Tobacco use disorder 305.1 ; Generalized osteoarthrosis, unspecified site 715.00 ; Anxiety 300.00 ; GERD (gastroesophageal reflux disease) 530.81 and Hypercholesteremia 272.0 [place] [address] [place] [address] 10978- 3940 Jan, [facility] [id number] [place] [address] 84300- 5218 Jan, [place] [address] [id number] [place] [address] 56237- 1072 Jan, [place] [address] [address] [id number] [place] [address] 93245- 4746 Jan, Seizures 780.39 ; COPD (chronic obstructive pulmonary disease) 496 ; Chronic pain due to injury 338.21 ; BPH (benign prostatic hyperplasia) 600.00 ; Tobacco use disorder 305.1 ; Generalized osteoarthrosis, unspecified site 715.00 ; Encounter for long-term (current) use of other medications V58.69 ; GERD (gastroesophageal reflux disease) 530.81 ; Hypercholesteremia 272.0 and Depression [address] [place] [address] [id number] [place] [address] 85858- 9803 Jan, [place] [address] [id number] [place] [address] 07385- 1590 Jan, Chronic pain due to injury 338.21 [place] [address] [id number] [place] [address] 10158- 4406 Dec, [place] [address] [place] [id number] [place] [address] 57893- 1668 Dec, Seizures 780.39 ; COPD (chronic obstructive pulmonary disease) 496 ; Chronic pain due to injury 338.21 ; Environmental allergies V15.09 ; GERD (gastroesophageal reflux disease) 530.81 ; Essential hypertension 401.9 ; Psoriasis 696.1 ; PTSD (post-traumatic stress disorder) 309.81 and Depression (emotion) 311 IMMUNIZATIONS No Known Immunizations SOCIAL HISTORY Never Assessed REASON FOR VISIT cane prescription PLAN OF CARE VITAL SIGNS MEDICATIONS Unknown [...] dioxide poisoning 2013 Hospitalization History [facility] [place]- CP and SOB 10/17/2017
--- OUTSIDE RECORDS SUMMARY | 2018-05-25 14:36 | XMS REPORT ---
Author Author YUMIKO MICHEL [facility] Address [address] [place] [address] Care Team Providers Care Retail Representative Name Role Phone YUMIKO MICHEL Unavailable PROBLEMS Type Condition ICD9-CM Code QEM47-QQ Code Onset Dates Condition Status SNOMED Code Problem BPH (benign prostatic hyperplasia) N40.0 Active 268573528 Problem Major depressive disorder, recurrent episode F33.9 Active 279171878 Problem LEROY (generalized anxiety disorder) F41.1 Active 29811869 Problem Spinal stenosis of lumbar region without neurogenic claudication M48.061 Active 43012289 Problem Post traumatic seizure disorder R56.1 Active 58448223 Problem Hypercholesterolemia E78.00 Active 98300501 Problem Irritable bladder N32.89 Active 197747336 Problem Gastroesophageal reflux disease, esophagitis presence not specified K21.9 Active 662913329 Problem Environmental allergies Z91.09 Active 523248993 Problem Tobacco abuse Z72.0 Active 25830027 Problem Chronic pain G89.29 Active 45712607 Problem Seizures R56.9 Active 76257214 Problem COPD (chronic obstructive pulmonary disease) J44.9 Active 26140042 Problem Generalized osteoarthritis M15.9 Active 691575643 ALLERGIES No Information ENCOUNTERS Encounter Location Date Diagnosis [facility] [id number] [place] [address] 86890- 6158 Feb, Spinal stenosis of lumbar region without neurogenic claudication M48.061 and Seizures R56.9 [facility] [id number] [place] [address] 28611- 5087 Feb, Chronic pain G89.29 [facility] [address] [place] [address] 66924- 1301 Feb, [facility] [address] [place] [address] 95245- 2343 Feb, [place] [id number] [address] 7898 Jan, [facility] [id number] [place] [address] 00416- 0633 Jan, [facility] [id number] [place] [address] 20141- 9909 Jan, [facility] [id number] [place] [address] 60708- 8164 Jan, Chronic pain G89.29 [place] [id number] [place] [address] 29319- 0787 Jan, Generalized osteoarthritis M15.9 ; COPD (chronic obstructive pulmonary disease) J44.9 ; LEROY (generalized anxiety disorder) F41.1 and Gastroesophageal reflux disease, esophagitis presence not specified K21.9 [place] [id number] [place] [address] 50972- 5575 Dec, Chronic pain G89.29 [place] [id number] [place] [address] 82563- 7911 Dec, Anxiety F41.9 and COPD (chronic obstructive pulmonary disease) J44.9 [place] [address] [id number] [place] [address] 71780- 1883 November, Chronic pain G89.29 [place] [id number] [place] [address] 01659- 2972 November, Medicare annual wellness visit, initial Z00.00 ; COPD ( chronic obstructive pulmonary disease) J44.9 ; Major depressive disorder, recurrent episode F33.9 ; Gastroesophageal reflux disease, esophagitis presence not specified K21.9 ; Hypercholesterolemia E78.00 ; Seizures R56.9 ; Chronic pain G89.29 ; BPH (benign prostatic hyperplasia) N40.0 and Encounter for immunization Z23 [place] [address] [place] [address] 77810- 3057 November, Chronic pain G89.29 [place] [address] [place] [address] [id number] [place] [address] 96245- 9194 Oct, [facility] [address] 05184- 5085 Oct, Chronic pain G89.29 [place] [address] 92267- 8180 Sep, [place] [address] 34906- 6079 Sep, COPD (chronic obstructive pulmonary disease) J44.9 ; Tobacco abuse Z72.0 ; Major depressive disorder, recurrent episode F33.9 and Hypercholesterolemia E78.00 [place] [address] 85325- 8913 Sep, [place] [address] 97273- 8786 Sep, Hypercholesterolemia E78.00 [place] [address] 53184- 3672 Sep, Chronic pain G89.29 ; COPD (chronic obstructive pulmonary disease) J44.9 ; Major depressive disorder, recurrent episode F33.9 ; Post traumatic seizure disorder R56.1 and Hypercholesterolemia E78.00 [place] [address] [id number] [place] [address] 73097- 8059 Sep, Chronic pain G89.29 [place] [address] 60481- 0650 07 Aug, 2017 Major depressive disorder, recurrent episode F33.9 and Gastroesophageal reflux disease, esophagitis presence not specified K21.9 [place] [address] [id number] [place] [address] 77563- 5152 06 Aug, 2017 Chronic pain G89.29 [place] [address] 15971- 3084 Jul, Other chronic pain G89.29 and Anxiety F41.9 [place] [address] 31503- 9564 15 Jun, 2017 Chronic pain G89.29 and Seizures R56.9 [place] [address] 18285- 2633 Jun, Other chronic pain G89.29 and Anxiety F41.9 [place] [address] 71744- 1509 May, COPD (chronic obstructive pulmonary disease) J44.9 [place] [address] 11558- 3650 May, Other chronic pain G89.29 and Anxiety F41.9 [place] [address] 30019- 3245 Apr, Other chronic pain G89.29 and Anxiety F41.9 [place] [address] 28542- 7997 Mar, Anxiety F41.9 and Other chronic pain G89.29 [place] [address] 09160- 8601 Feb, [place] [address] 18564- 3246 Feb, Anxiety F41.9 and Other chronic pain G89.29 [place] [address] 78107- 2734 Feb, [place] [address] 34017- 9459 Feb, COPD (chronic obstructive pulmonary disease) J44.9 ; Sleep apnea due to high altitude G47.31 and Oxygen desaturation during sleep G47.34 [place] [address] 62402- 6937 Jan, Other chronic pain G89.29 and Anxiety F41.9 [place] [id number] [place] [address] 32210- 5515 Jan, [place] [id number] [place] [address] 50148- 9683 Dec, Anxiety F41.9 and Other chronic pain G89.29 [facility] [id number] [place] [address] 81469- 3383 16 Dec, 2016 [facility] [id number] [place] [address] 31669- 3023 Dec, [facility] [address] 07153- 3564 Dec, Seizures R56.9 ; Chronic pain G89.29 [...] and COPD (chronic obstructive pulmonary disease) J44.9 [place] [address] [id number] [place] [address] 15133- 5447 Dec, [place] [address] [id number] [place] [address] 70836- 8497 Dec, [place] [address] [id number] [place] [address] 78661- 7227 Dec, Generalized osteoarthritis M15.9 and Anxiety F41.9 [place] [address] [place] [address] [id number] [place] [address] 16261- 4652 November, Status post shoulder surgery Z98.890 [facility] [id number] [place] [address] 95595- 9976 November, Generalized osteoarthritis M15.9 and Anxiety F41.9 [facility] [id number] [place] [address] 63173- 2747 Oct, [facility] [id number] [place] [address] 81809- 2660 Oct, Bilateral hearing loss, unspecified hearing loss [...] ; Anxiety F41.9 and Environmental allergies Z91.09 [place] [address] 00357- 4393 Oct, Chronic pain G89.29 and LEROY (generalized anxiety disorder) F41.[address] 43256- 8176 Sep, [address] 86703- 1607 Sep, Tear of right rotator cuff, unspecified [...] disease) J44.9 and Hearing reduced, bilateral H91.93 [place] [address] 71104- 1596 Sep, LEROY (generalized anxiety disorder) F41.1 [place] [address] 00566- 7365 Aug, [place] [address] 15691- 5003 Aug, Tear of right rotator cuff, unspecified tear extent M75.101 [place] [address] [place] [address]- 1933 Aug, Seizures R56.9 ; Chronic pain G89.29 ; Generalized osteoarthritis M15.9 ; COPD (chronic obstructive pulmonary disease) J44.9 ; LEROY (generalized anxiety disorder) F41.1 ; Gastroesophageal reflux disease, esophagitis presence not specified K21.9 ; Scabies B86 ; Hypercholesterolemia E78.00 ; Irritable bladder N32.89 and Edema, unspecified type R60.9 [place] [address] [place] [address] [id number] [place] [address] 74877- 9767 Jul, Major depressive disorder, recurrent episode F33.9 [place] [address] 36156- 7330 Jul, Seizures R56.9 ; Hypercholesterolemia E78.00 ; BPH (benign prostatic hyperplasia) N40.0 ; Major depressive disorder, recurrent episode F33.9 and Edema, unspecified type R60.9 [place] [address] 57845- 3567 Jul, Chronic pain G89.29 and LEROY (generalized anxiety disorder) F41.1 [place] [address] 06261- 5944 Jul, Seizures R56.9 ; COPD (chronic obstructive [...] shoulder M25.511 and Other chronic pain G89.29 [place] [id number] [place] [address] 88276- 6635 Jun, [place] [address] [id number] [place] [address] 47747- 6553 May, [place] [address] [address] 2548 Apr, [facility] [id number] [place] [address] 60068 2544 Apr, Seizures R56.9 ; COPD (chronic obstructive pulmonary disease ) J44.9 ; BPH (benign prostatic hyperplasia) N40.0 ; Chronic pain G89.29 ; Tobacco abuse Z72.0 ; LEROY (generalized anxiety disorder) F41.1 ; Environmental allergies Z91.09 ; Irritable bladder N32.89 and Hypercholesterolemia E78.00 [facility] [id number] [place] [address] 81138 2546 Mar, [facility] [id number] [place] [address] 72498 2546 Mar, [facility] [id number] [place] [address] 36110 2546 Mar, [facility] [id number] [place] [address] 83990 2546 Mar, [facility] [id number] [place] [address] 89594 2546 Feb, [facility] [id number] [place] [address] 11611 2546 Feb, Chronic pain G89.29 [facility] [id number] [place] [address] 92064 2546 Feb, [facility] [address] [place] [address] 62023 2546 Jan, [facility] [id number] [address] 2546 Dec, [facility] [id number] [place] [address] 32174 2546 Dec, [facility] [address] [place] [address] 86189 2546 Dec, Seizures R56.9 ; COPD (chronic obstructive pulmonary disease ) J44.9 ; Chronic pain G89.29 ; BPH (benign prostatic hyperplasia) N40.0 ; Generalized osteoarthritis M15.9 ; Hypercholesterolemia E78.0 ; Overactive bladder N32.81 ; Insomnia, unspecified type G47.00 ; Other depression F32.8 ; Environmental allergies Z91.09 and Gastroesophageal reflux disease, esophagitis presence not specified K21.9 [place] [id number] [place] [address] 86257- 4748 November, Chronic pain due to trauma G89.21 and Anxiety F41.9 [place] [address] 25416- 7871 Oct, [place] [address] 94489- 0149 Sep, [place] [address] 33513- 4220 Sep, [place] [address] 71716- 4245 Sep, [place] [address] [place] [address] [id number] [place] [address] 48898- 8527 Sep, Seizures R56.9 ; Major depressive disorder, recurrent episode F33.9 and LEROY (generalized anxiety disorder) F41.1 [place] [address] [id number] [place] [address] 93724- 6828 Aug, [place] [id number] [place] [address] 69121- 3167 Aug, COPD (chronic obstructive pulmonary disease) J44.9 ; Chronic pain G89.29 ; BPH (benign prostatic hyperplasia) N40.0 ; Tobacco abuse Z72.0 ; Generalized osteoarthritis M15.9 ; Seizures R56.9 ; Overactive bladder N32.81 ; Depression F32.9 and Anxiety F41.9 [place] [id number] [place] [address] 92645- 3734 Jul, Essential (primary) hypertension I10 ; Pure hypercholesterolemia E78.0 ; Generalized osteoarthrosis, unspecified site 715.00 and Other care home (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 Z79.899 [facility] [id number] [place] [address] 88915- 5811 Jul, [facility] [id number] [place] [address] 35380- 2682 Jul, [facility] [id number] [place] [address] 95070- 3435 Jun, [facility] [address] 57941- 3057 May, [facility] [address] 33610- 4657 Apr, [facility] [id number] [place] [address] 66468- 5810 Apr, Seizures R56.9 ; COPD (chronic obstructive pulmonary disease ) J44.9 ; Chronic pain G89.29 ; BPH (benign prostatic hyperplasia) N40.0 ; Tobacco abuse Z72.0 ; Generalized osteoarthritis M15.9 ; Insomnia G47.00 ; Anxiety F41.9 and GERD (gastroesophageal reflux disease) K21.9 [facility] [id number] [place] [address] 57931- 8884 Apr, [facility] [id number] [place] [address] 32966- 3472 Mar, [facility] [id number] [place] [address] 92577- 3824 Feb, Major depression, recurrent 296.30 and Generalized anxiety disorder 300.02 [facility] [id number] [place] [address] 79790- 1455 Feb, [facility] [id number] [place] [address] 86058- 0201 Feb, [facility] [id number] [place] [address] 37858- 3828 Jan, Chronic pain due to injury 338.21 ; Seizures 780.39 ; COPD ( chronic obstructive pulmonary disease) 496 ; BPH (benign prostatic hyperplasia) 600.00 ; Tobacco use disorder 305.1 ; Generalized osteoarthrosis, unspecified site 715.00 ; Anxiety 300.00 ; GERD (gastroesophageal reflux disease) 530.81 and Hypercholesteremia 272.0 [place] [address] [place] [address] 43263- 4991 Jan, [facility] [id number] [place] [address] 03713- 6926 Jan, [place] [address] [place] [id number] [place] [address] 55882- 8580 Jan, [place] [address] [place] [address] [id number] [place] [address] 64566- 4285 Jan, Seizures 780.39 ; COPD (chronic obstructive pulmonary disease) 496 ; Chronic pain due to injury 338.21 ; BPH (benign prostatic hyperplasia) 600.00 ; Tobacco use disorder 305.1 ; Generalized osteoarthrosis, unspecified site 715.00 ; Encounter for long-term (current) use of other medications V58.69 ; GERD (gastroesophageal reflux disease) 530.81 ; Hypercholesteremia 272.0 and Depression [address] [place] [id number] [place] [address] 59788- 5175 Jan, [place] [address] [id number] [place] [address] 88176- 9646 Jan, Chronic pain due to injury 338.21 [place] [id number] [place] [address] 80436- 0692 Dec, [place] [address] [place] [address] [id number] [place] [address] 42462- 6454 Dec, Seizures 780.39 ; COPD (chronic obstructive pulmonary disease) 496 ; Chronic pain due to injury 338.21 ; Environmental allergies V15.09 ; GERD (gastroesophageal reflux disease) 530.81 ; Essential hypertension 401.9 ; Psoriasis 696.1 ; PTSD (post-traumatic stress disorder) 309.81 and Depression (emotion) 311 IMMUNIZATIONS No Known Immunizations SOCIAL HISTORY Never Assessed REASON FOR VISIT Oxycodone and alprazolam due 02/23 PLAN OF CARE VITAL SIGNS MEDICATIONS Medication Instructions Dosage Frequency Start Date End Date Duration Status Alprazolam 0.5 MG Orally 2 times a day prn 1 tablet Jul, 28 days Active Percocet 10-325 MG Orally 3 times a day 1 tablet as needed 8h Jan, 28 days Active RESULTS No Results PROCEDURES [...] dioxide poisoning 2013 Hospitalization History [facility] [place]- CP and SOB 10/17/2017
--- OUTSIDE RECORDS SUMMARY | 2018-05-25 14:36 | XMS REPORT ---
Author Author YUMIKO MICHEL [facility] Address [address] [place] [address] Care Team Providers Care News Director Name Role Phone YUMIKO MICHEL Unavailable PROBLEMS Type Condition ICD9-CM Code HDA90-ST Code Onset Dates Condition Status SNOMED Code Problem BPH (benign prostatic hyperplasia) N40.0 Active 506849344 Problem Major depressive disorder, recurrent episode F33.9 Active 252767027 Problem LEROY (generalized anxiety disorder) F41.1 Active 05217996 Problem Spinal stenosis of lumbar region without neurogenic claudication M48.061 Active 92490397 Problem Post traumatic seizure disorder R56.1 Active 79556299 Problem Hypercholesterolemia E78.00 Active 53705263 Problem Irritable bladder N32.89 Active 177603281 Problem Gastroesophageal reflux disease, esophagitis presence not specified K21.9 Active 026765267 Problem Environmental allergies Z91.09 Active 066099175 Problem Tobacco abuse Z72.0 Active 50038109 Problem Chronic pain G89.29 Active 73931622 Problem Seizures R56.9 Active 38847695 Problem COPD (chronic obstructive pulmonary disease) J44.9 Active 91783609 Problem Generalized osteoarthritis M15.9 Active 618179915 ALLERGIES Substance Reaction Event Type Date Status Ultracet headache, "blindness" Drug Allergy Jan, Active Prozac "stops my heart" Drug Allergy Jan, Active Codeine Sulfate agitation Drug Allergy Jan, Active ENCOUNTERS Encounter Location Date Diagnosis [facility] [place] [address] [facility] [id number] [address] Feb, Spinal stenosis of lumbar region without neurogenic claudication M48.061 and Seizures R56.9 [facility] [place] [id number] [address] Feb, Chronic pain G89.29 [facility] [place] [id number] [address] Feb, [facility] [place] [address] [address] Feb, [facility] [place] [address] [address] Jan, [facility] [place] [address] [address] Jan, [facility] [place] [id number] [place] [address] 49057- 5498 Jan, [facility] [place] [address] [place] [address] 06086- 1125 Jan, Chronic pain G89.29 [place] [address] [place] [address] 02609- 3599 Jan, Generalized osteoarthritis M15.9 ; COPD (chronic obstructive pulmonary disease) J44.9 ; LEROY (generalized anxiety disorder) F41.1 and Gastroesophageal reflux disease, esophagitis presence not specified K21.9 [place] [address] [place] [address] 46220- 8801 Dec, Chronic pain G89.29 [place] [address] [place] [address] 16735- 3521 Dec, Anxiety F41.9 and COPD (chronic obstructive pulmonary disease) J44.9 [place] [address] [address] November, Chronic pain G89.29 [place] [address] [address] 76[address] November, Medicare annual wellness visit, initial Z00.00 ; COPD ( chronic obstructive pulmonary disease) J44.9 ; Major depressive disorder, recurrent episode F33.9 ; Gastroesophageal reflux disease, esophagitis presence not specified K21.9 ; Hypercholesterolemia E78.00 ; Seizures R56.9 ; Chronic pain G89.29 ; BPH (benign prostatic hyperplasia) N40.0 and Encounter for immunization Z23 [place] [id number] [address] November, Chronic pain G89.29 [facility] [place] [id number] [place] [address] 81164- 1554 Oct, [facility] [place] [id number] [place] [address] 13629- 5977 Oct, Chronic pain G89.29 [facility] [place] [id number] [place] [address] 26330- 8326 Sep, [facility] [place] [id number] [place] [address] 79272- 3479 Sep, COPD (chronic obstructive pulmonary disease) J44.9 ; Tobacco abuse Z72.0 ; Major depressive disorder, recurrent episode F33.9 and Hypercholesterolemia E78.00 [place] [id number] [place] [address] 39575- 4696 Sep, [facility] [place] [id number] [place] [address] 16843- 2904 Sep, Hypercholesterolemia E78.00 [facility] [place] [id number] [place] [address] 47440- 8932 Sep, Chronic pain G89.29 ; COPD (chronic obstructive pulmonary disease) J44.9 ; Major depressive disorder, recurrent episode F33.9 ; Post traumatic seizure disorder R56.1 and Hypercholesterolemia E78.00 [place] [address] [place] [address] 78862- 2540 Sep, Chronic pain G89.29 [facility] [place] [id number] [place] [address] 40831- 9802 Aug, Major depressive disorder, recurrent episode F33.9 and Gastroesophageal reflux disease, esophagitis presence not specified K21.9 [facility] [place] [address] [place] [address] 07880- 8277 06 Aug, 2017 Chronic pain G89.29 [facility] [place] [id number] [place] [address] 26161- 7440 Jul, Other chronic pain G89.29 and Anxiety F41.9 [facility] [place] [id number] [place] [address] 90346- 2600 15 Jun, 2017 Chronic pain G89.29 and Seizures R56.9 [facility] [place] [id number] [place] [address] 37811- 1522 13 Jun, 2017 Other chronic pain G89.29 and Anxiety F41.9 [facility] [place] [address] [address] May, COPD (chronic obstructive pulmonary disease) J44.9 [place] [address] [address]- 3768 May, Other chronic pain G89.29 and Anxiety F41.9 [place] [address] 10590- 8089 Apr, Other chronic pain G89.29 and Anxiety F41.9 [place] [address] 44268- 1423 Mar, Anxiety F41.9 and Other chronic pain G89.29 [place] [id number] [place] [address] 40090- 1697 Feb, [place] [id number] [place] [address] 50055- 6400 Feb, Anxiety F41.9 and Other chronic pain G89.29 [facility] [place] [id number] [place] [address] 81494- 7494 Feb, [place] [id number] [place] [address] 02243- 1289 Feb, COPD (chronic obstructive pulmonary disease) J44.9 ; Sleep apnea due to high altitude G47.31 and Oxygen desaturation during sleep G47.34 [facility] [place] [id number] [place] [address] 88028- 3696 Jan, Other chronic pain G89.29 and Anxiety F41.9 [facility] [place] [address] [place] [address] 16492- 2387 Jan, [facility] [place] [id number] [place] [address] 54502- 2175 Dec, Anxiety F41.9 and Other chronic pain G89.29 [facility] [place] [id number] [place] [address] 34248- 8321 Dec, [facility] [place] [id number] [place] [address] 45776- 8605 Dec, [place] [address] [address]- 2502 Dec, Seizures R56.9 ; Chronic pain G89.29 [...] and COPD (chronic obstructive pulmonary disease) J44.9 [place] [id number] [place] [address] 77603- 9707 Dec, [place] [id number] [place] [address] 14764- 9007 Dec, [place] [id number] [place] [address] 34305- 4361 Dec, Generalized osteoarthritis M15.9 and Anxiety F41.9 [place] [id number] [place] [address] 41575- 3695 November, Status post shoulder surgery Z98.890 [place] [id number] [place] [address] 19738- 3053 November, Generalized osteoarthritis M15.9 and Anxiety F41.9 [place] [address] [place] [address]- 7264 Oct, [address] [address]41- 3913 Oct, Bilateral hearing loss, unspecified hearing loss [...] ; Anxiety F41.9 and Environmental allergies Z91.[address] 25145- 4951 Oct, Chronic pain G89.29 and LEROY (generalized anxiety disorder) F41.[address] 93810- 9208 Sep, [address] 69901- 1322 Sep, Tear of right rotator cuff, unspecified [...] disease) J44.9 and Hearing reduced, bilateral H91.[address] 45564- 5457 Sep, LEROY (generalized anxiety disorder) F41.[address] 33509- 6185 Aug, [address] 88016- 1449 Aug, Tear of right rotator cuff, unspecified tear extent M75.101 [place] [id number] [place] [address] 72013- 9216 Aug, Seizures R56.9 ; Chronic pain G89.29 ; Generalized osteoarthritis M15.9 ; COPD (chronic obstructive pulmonary disease) J44.9 ; LEROY (generalized anxiety disorder) F41.1 ; Gastroesophageal reflux disease, esophagitis presence not specified K21.9 ; Scabies B86 ; Hypercholesterolemia E78.00 ; Irritable bladder N32.89 and Edema, unspecified type R60.9 [place] [address] 67830- 8883 Jul, Major depressive disorder, recurrent episode F33.9 [place] [address] 47237- 2419 Jul, Seizures R56.9 ; Hypercholesterolemia E78.00 ; BPH (benign prostatic hyperplasia) N40.0 ; Major depressive disorder, recurrent episode F33.9 and Edema, unspecified type R60.9 [place] [id number] [place] [address] 86567- 4724 Jul, Chronic pain G89.29 and LEROY (generalized anxiety disorder) F41.1 [place] [id number] [place] [address] 18371- 5270 Jul, Seizures R56.9 ; COPD (chronic obstructive [...] shoulder M25.511 and Other chronic pain G89.29 [place] [address] 07784- 8268 Jun, [facility] [place] [id number] [place] [address] 52982- 3463 May, [facility] [place] [id number] [place] [address] 20632- 0495 Apr, [facility] [place] [id number] [place] [address] 30238- 8512 Apr, Seizures R56.9 ; COPD (chronic obstructive pulmonary disease ) J44.9 ; BPH (benign prostatic hyperplasia) N40.0 ; Chronic pain G89.29 ; Tobacco abuse Z72.0 ; LEROY (generalized anxiety disorder) F41.1 ; Environmental allergies Z91.09 ; Irritable bladder N32.89 and Hypercholesterolemia E78.00 [facility] [place] [id number] [place] [address] 20231- 3293 Mar, [facility] [place] [id number] [place] [address] 70417- 4668 Mar, [facility] [place] [id number] [place] [address] 48648- 8191 Mar, [facility] [place] [id number] [place] [address] 37750- 5177 Mar, [facility] [place] [id number] [place] [address] 47848- 5136 Feb, [facility] [place] [id number] [place] [address] 42164- 5348 Feb, Chronic pain G89.29 [facility] [place] [id number] [place] [address] 31354- 7585 Feb, [facility] [place] [id number] [place] [address] 27771- 3602 Jan, [facility] [place] [id number] [place] [address] 93772- 7053 Dec, [facility] [place] [id number] [place] [address] 85560- 4697 Dec, [place] [id number] [place] [address] 05701- 2168 06 Dec, 2015 Seizures R56.9 ; COPD (chronic obstructive pulmonary disease ) J44.9 ; Chronic pain G89.29 ; BPH (benign prostatic hyperplasia) N40.0 ; Generalized osteoarthritis M15.9 ; Hypercholesterolemia E78.0 ; Overactive bladder N32.81 ; Insomnia, unspecified type G47.00 ; Other depression F32.8 ; Environmental allergies Z91.09 and Gastroesophageal reflux disease, esophagitis presence not specified K21.9 [place] [id number] [place] [address] 32095- 5681 November, Chronic pain due to trauma G89.21 and Anxiety F41.9 [place] [id number] [place] [address] 70493- 9230 Oct, [place] [address] 01889- 4159 Sep, [place] [id number] [place] [address] 96535- 8009 Sep, [place] [id number] [place] [address] 87500- 6546 Sep, [place] [id number] [place] [address] 44491- 8594 Sep, Seizures R56.9 ; Major depressive disorder, recurrent episode F33.9 and LEROY (generalized anxiety disorder) F41.1 [place] [id number] [place] [address] 05891- 2760 Aug, [place] [id number] [place] [address] 67120- 1812 02 Aug, 2015 COPD (chronic obstructive pulmonary disease) J44.9 ; Chronic pain G89.29 ; BPH (benign prostatic hyperplasia) N40.0 ; Tobacco abuse Z72.0 ; Generalized osteoarthritis M15.9 ; Seizures R56.9 ; Overactive bladder N32.81 ; Depression F32.9 and Anxiety F41.9 [place] [id number] [place] [address] 89806- 8149 Jul, Essential (primary) hypertension I10 ; Pure hypercholesterolemia E78.0 ; Generalized osteoarthrosis, unspecified site 715.00 and Other jail (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 Z79.899 [facility] [place] [id number] [place] [address] 85412- 0183 Jul, [facility] [place] [address] 62539- 6466 Jul, [facility] [place] [id number] [place] [address] 26565- 0426 Jun, [place] [id number] [place] [address] 66386- 4670 May, [place] [id number] [place] [address] 13967- 1222 Apr, [place] [address] 50488- 3732 Apr, Seizures R56.9 ; COPD (chronic obstructive pulmonary disease ) J44.9 ; Chronic pain G89.29 ; BPH (benign prostatic hyperplasia) N40.0 ; Tobacco abuse Z72.0 ; Generalized osteoarthritis M15.9 ; Insomnia G47.00 ; Anxiety F41.9 and GERD (gastroesophageal reflux disease) K21.9 [place] [id number] [place] [address] 57462- 0146 Apr, [facility] [place] [id number] [place] [address] 57309- 6034 Mar, [facility] [place] [id number] [place] [address] 29369- 6786 Feb, Major depression, recurrent 296.30 and Generalized anxiety disorder 300.02 [facility] [place] [id number] [place] [address] 73264- 4495 Feb, [facility] [place] [id number] [place] [address] 25297- 3278 Feb, [place] [id number] [address]- 4242 Jan, Chronic pain due to injury 338.21 ; Seizures 780.39 ; COPD ( chronic obstructive pulmonary disease) 496 ; BPH (benign prostatic hyperplasia) 600.00 ; Tobacco use disorder 305.1 ; Generalized osteoarthrosis, unspecified site 715.00 ; Anxiety 300.00 ; GERD (gastroesophageal reflux disease) 530.81 and Hypercholesteremia 272.0 [place] [id number] [place] [address] 47588- 3606 Jan, [place] [id number] [place] [address] 577426- 0630 Jan, [place] [id number] [place] [address] 17320- 2561 Jan, [place] [id number] [place] [address] 42326- 9751 Jan, Seizures 780.39 ; COPD (chronic obstructive pulmonary disease) 496 ; Chronic pain due to injury 338.21 ; BPH (benign prostatic hyperplasia) 600.00 ; Tobacco use disorder 305.1 ; Generalized osteoarthrosis, unspecified site 715.00 ; Encounter for long-term (current) use of other medications V58.69 ; GERD (gastroesophageal reflux disease) 530.81 ; Hypercholesteremia 272.0 and Depression [address] [place] [address] 82928- 8835 Jan, [place] [id number] [place] [address] 17779- 8198 Jan, Chronic pain due to injury 338.21 [place] [id number] [place] [address] 48628- 3760 Dec, [place] [id number] [place] [address] 50741633- 2710 Dec, Seizures 780.39 ; COPD (chronic obstructive pulmonary disease) 496 ; Chronic pain due to injury 338.21 ; Environmental allergies V15.09 ; GERD (gastroesophageal reflux disease) 530.81 ; Essential hypertension 401.9 ; Psoriasis 696.1 ; PTSD (post-traumatic stress disorder) 309.81 and Depression (emotion) 311 IMMUNIZATIONS No Known Immunizations SOCIAL HISTORY Never Assessed REASON FOR VISIT COPD -Hiram EASTMAN , O2 Sat, Update contract, PT reports he has been having neck pain the last few weeks. PT notes some twitching -Hiram EASTMAN PLAN OF CARE Activity Details Follow Up 3 Months Reason: VITAL SIGNS Height 67.5 in 2018-02-05 Weight 180.6 lbs 2018-02-05 Temperature 97.9 degrees Fahrenheit 2018-02-05 Heart Rate 97 bpm 2018-02-05 Respiratory Rate 20 2018-02-05 BMI 27.87 kg/m2 2018-02-05 Blood pressure systolic 122 mmHg 2018-02-05 Blood pressure diastolic 74 mmHg 2018-02-05 MEDICATIONS Medication Instructions Dosage Frequency Start Date End Date Duration Status Keppra 500 mg Orally 2 times a day 1 tablet 12h 30 Active Nebulizer Active Oxygen by inhalation route nocturnal 2 liters Oct, Active Cymbalta 60 mg Orally Once a day 1 capsule 24h Active Albuterol Sulfate HFA cfc free 90 mcg/inh Inhalation every 4 hrs 2 puffs as needed 4h Active Omeprazole 20 mg Orally 2 times a day 1 capsule 12h Active Alprazolam 0.5 MG Orally 2 times a day prn 1 tablet Jul, 28 days Active Albuterol Sulfate (2.5 MG/3ML) 0.083% USE ONE VIAL VIA NEBULIZER FOUR TIMES DAILY 12 Active Trazodone HCl 100 mg Orally Once a day 1 tablet at bedtime 24h Oct, 30 day(s) Active Advair Diskus 250-50 MCG/DOSE Inhalation Twice a day 1 puff 12h 16 Feb, 2017 Active Percocet 10-325 MG Orally 3 times a day 1 tablet as needed 8h Dec, 28 days Active Abilify 10 mg Orally Once in the morning 1 tablet Active Fish Oil 1000 MG Orally Once a day 3 capsule 24h Active Fluticasone Propionate 50 MCG/ACT Nasally 2 times a day 2 sprays in each nostril 12h Active Lipitor 20 mg Orally Once a day 1 tablet 24h Active Tylenol 325 MG Orally every 6 hrs 2 tablets as needed 6h Active Flonase Allergy Relief 50 MCG/ACT Nasally 2 times a day 1-2 spray in each nostril 12h Active Benadryl Allergy 25 MG Orally every 6 hrs 1 tablet as needed 6h Active RESULTS No Results PROCEDURES Procedure Date Ordered Result Body Site [facility] ESTABLISHED PATIENT February 05, 2018 INSTRUCTIONS MEDICATIONS ADMINISTERED No Known Medications [...] dioxide poisoning 2013 Hospitalization History [facility]- CP and SOB 10/17/2017
--- OUTSIDE RECORDS SUMMARY | 2018-05-25 14:37 | XMS REPORT ---
Author Author YUMIKO MICHEL [facility] Address [address] [place] [address] Care Team Providers Care Babbitt Spinner Name Role Phone YUMIKO MICHEL Unavailable PROBLEMS Type Condition ICD9-CM Code ZHQ90-FF Code Onset Dates Condition Status SNOMED Code Problem Generalized osteoarthritis M15.9 Active 421864826 Problem LEROY (generalized anxiety disorder) F41.1 Active 49224274 Problem BPH (benign prostatic hyperplasia) N40.0 Active 009245875 Problem COPD (chronic obstructive pulmonary disease) J44.9 Active 07639642 Problem Tobacco abuse Z72.0 Active 23070554 Problem Chronic pain G89.29 Active 19797186 Problem Seizures R56.9 Active 07878508 Problem Post traumatic seizure disorder R56.1 Active 82465699 Problem Gastroesophageal reflux disease, esophagitis presence not specified K21.9 Active 927030840 Problem Irritable bladder N32.89 Active 348323471 Problem Major depressive disorder, recurrent episode F33.9 Active 911752008 Problem Environmental allergies Z91.09 Active 272756572 Problem Hypercholesterolemia E78.00 Active 67138140 ALLERGIES No Information ENCOUNTERS Encounter Location Date Diagnosis [facility] [id number] [address] Feb, [facility] [id number] [address] Feb, Chronic pain G89.29 [facility] [id number] [address] Feb, [facility] [id number] [place] [address] 68964- 2783 Feb, [facility] [id number] [address] Jan, [facility] [id number] [place] [address] 61576- 2898 Jan, [facility] [id number] [place] [address] 30279- 2093 Jan, [facility] [id number] [place] [address] 18209- 7386 Jan, Chronic pain G89.29 [facility] [address] [address]- [address] Jan, Generalized osteoarthritis M15.9 ; COPD (chronic obstructive pulmonary disease) J44.9 ; LEROY (generalized anxiety disorder) F41.1 and Gastroesophageal reflux disease, esophagitis presence not specified K21.9 [facility] [address] [address]- [address] Dec, Chronic pain G89.29 [facility] [address] 05491- 0148 Dec, Anxiety F41.9 and COPD (chronic obstructive pulmonary disease) J44.9 [facility] [id number] [place] [address] 53934- 4170 November, Chronic pain G89.29 [facility] [id number] [place] [address] 92690- 7230 November, Medicare annual wellness visit, initial Z00.00 ; COPD ( chronic obstructive pulmonary disease) J44.9 ; Major depressive disorder, recurrent episode F33.9 ; Gastroesophageal reflux disease, esophagitis presence not specified K21.9 ; Hypercholesterolemia E78.00 ; Seizures R56.9 ; Chronic pain G89.29 ; BPH (benign prostatic hyperplasia) N40.0 and Encounter for immunization Z23 [facility] [id number] [place] [address] 17343- 4584 November, Chronic pain G89.29 [facility] [id number] [place] [address] 41525- 8537 Oct, [facility] [address] 31556- 2211 Oct, Chronic pain G89.29 [facility] [id number] [place] [address] 18910- 5349 Sep, [facility] [address] 15697- 5050 Sep, COPD (chronic obstructive pulmonary disease) J44.9 ; Tobacco abuse Z72.0 ; Major depressive disorder, recurrent episode F33.9 and Hypercholesterolemia E78.00 [facility] [id number] [place] [address] 03414- 1071 Sep, [facility] [id number] [place] [address] 70631- 9834 Sep, Hypercholesterolemia E78.00 [facility] [id number] [place] [address] 00771- 0258 Sep, Chronic pain G89.29 ; COPD (chronic obstructive pulmonary disease) J44.9 ; Major depressive disorder, recurrent episode F33.9 ; Post traumatic seizure disorder R56.1 and Hypercholesterolemia E78.00 [facility] [id number] [place] [address] 07374- 2201 Sep, Chronic pain G89.29 [facility] [id number] [place] [address] 52737- 8632 Aug, Major depressive disorder, recurrent episode F33.9 and Gastroesophageal reflux disease, esophagitis presence not specified K21.9 [facility] [id number] [place] [address] 76409- 6156 Aug, Chronic pain G89.29 [facility] [id number] [place] [address] 88595- 6546 Jul, Other chronic pain G89.29 and Anxiety F41.9 [facility] [id number] [place] [address] 97029- 0484 Jun, Chronic pain G89.29 and Seizures R56.9 [facility] [address] 87347- 4326 Jun, Other chronic pain G89.29 and Anxiety F41.9 [facility] [id number] [place] [address] 89064- 8164 May, COPD (chronic obstructive pulmonary disease) J44.9 [facility] [id number] [place] [address] 78079- 4339 May, Other chronic pain G89.29 and Anxiety F41.9 [facility] [id number] [place] [address] 82188- 0738 Apr, Other chronic pain G89.29 and Anxiety F41.9 [facility] [address] 16488- 6410 Mar, Anxiety F41.9 and Other chronic pain G89.29 [facility] [id number] [place] [address] 31710- 8042 Feb, [facility] [id number] [place] [address] 92672- 7420 Feb, Anxiety F41.9 and Other chronic pain G89.29 [facility] [id number] [place] [address] 13884- 6023 Feb, [facility] [id number] [place] [address] 60580- 6265 Feb, COPD (chronic obstructive pulmonary disease) J44.9 ; Sleep apnea due to high altitude G47.31 and Oxygen desaturation during sleep G47.34 [facility] [id number] [place] [address] 21102- 9890 Jan, Other chronic pain G89.29 and Anxiety F41.9 [facility] [id number] [place] [address] 05043- 7061 Jan, [facility] [id number] [place] [address] 31449- 4609 Dec, Anxiety F41.9 and Other chronic pain G89.29 [facility] [id number] [place] [address] 48111- 5719 16 Dec, 2016 [facility] [address] 15339- 7891 Dec, [facility] [address] 58549- 0192 Dec, Seizures R56.9 ; Chronic pain G89.29 [...] (chronic obstructive pulmonary disease) J44.9 [facility] [address] 18702- 5239 Dec, [facility] [id number] [place] [address] 03535- 9840 Dec, [facility] [address] 22663- 3592 Dec, Generalized osteoarthritis M15.9 and Anxiety F41.9 [facility] [id number] [place] [address] 89386- 7350 November, Status post shoulder surgery Z98.890 [facility] [id number] [place] [address] 31002- 3990 November, Generalized osteoarthritis M15.9 and Anxiety F41.9 [facility] [id number] [place] [address] 68329- 0671 Oct, [facility] [address] 80024- 6083 Oct, Bilateral hearing loss, unspecified hearing loss [...] F41.9 and Environmental allergies Z91.09 [facility] [id number] [place] [address] 33731- 9463 Oct, Chronic pain G89.29 and LEROY (generalized anxiety disorder) F41.1 [facility] [id number] [place] [address] 91642- 3549 Sep, [facility] [id number] [place] [address] 41215- 0618 Sep, Tear of right rotator cuff, unspecified [...] and Hearing reduced, bilateral H91.93 [facility] [id number] [place] [address] 14202- 0155 Sep, LEROY (generalized anxiety disorder) F41.1 [facility] [id number] [place] [address] 86899- 0353 Aug, [facility] [address] 73727- 2324 Aug, Tear of right rotator cuff, unspecified tear extent M75.101 [facility] [id number] [place] [address] 10477- 8554 Aug, Seizures R56.9 ; Chronic pain G89.29 ; Generalized osteoarthritis M15.9 ; COPD (chronic obstructive pulmonary disease) J44.9 ; LEROY (generalized anxiety disorder) F41.1 ; Gastroesophageal reflux disease, esophagitis presence not specified K21.9 ; Scabies B86 ; Hypercholesterolemia E78.00 ; Irritable bladder N32.89 and Edema, unspecified type R60.9 [facility] [id number] [place] [address] 87166- 7695 Jul, Major depressive disorder, recurrent episode F33.9 [place] [address] 97901- 1231 Jul, Seizures R56.9 ; Hypercholesterolemia E78.00 ; BPH (benign prostatic hyperplasia) N40.0 ; Major depressive disorder, recurrent episode F33.9 and Edema, unspecified type R60.9 [place] [id number] [place] [address] 61099- 3023 Jul, Chronic pain G89.29 and LEROY (generalized anxiety disorder) F41.1 [facility] [id number] [place] [address] 79489- 0165 Jul, Seizures R56.9 ; COPD (chronic obstructive [...] and Other chronic pain G89.29 [facility] [id number] [place] [address] 10262- 9890 Jun, [place] [address] 76252- 2252 May, [facility] [id number] [place] [address] 59198- 6130 Apr, [place] [address] 40773- 9354 Apr, Seizures R56.9 ; COPD (chronic obstructive pulmonary disease ) J44.9 ; BPH (benign prostatic hyperplasia) N40.0 ; Chronic pain G89.29 ; Tobacco abuse Z72.0 ; LEROY (generalized anxiety disorder) F41.1 ; Environmental allergies Z91.09 ; Irritable bladder N32.89 and Hypercholesterolemia E78.00 [facility] [id number] [place] [address] 84408- 5968 Mar, [facility] [id number] [place] [address] 32307 2546 Mar, [facility] [id number] [place] [address] 92138- 7562 Mar, [facility] [id number] [place] [address] 16114- 2541 Mar, [facility] [id number] [place] [address] 59210- 7990 Feb, [facility] [id number] [place] [address] 88524- 0908 Feb, Chronic pain G89.29 [facility] [id number] [place] [address] 13359 2541 Feb, [facility] [id number] [place] [address] 35325- 0766 Jan, [facility] [id number] [place] [address] 12759 2543 Dec, [facility] [id number] [place] [address] 18081- 7366 Dec, [facility] [id number] [place] [address] 51235- 2546 Dec, Seizures R56.9 ; COPD (chronic obstructive pulmonary disease ) J44.9 ; Chronic pain G89.29 ; BPH (benign prostatic hyperplasia) N40.0 ; Generalized osteoarthritis M15.9 ; Hypercholesterolemia E78.0 ; Overactive bladder N32.81 ; Insomnia, unspecified type G47.00 ; Other depression F32.8 ; Environmental allergies Z91.09 and Gastroesophageal reflux disease, esophagitis presence not specified K21.9 [place] [address] 24295- 7752 November, Chronic pain due to trauma G89.21 and Anxiety F41.9 [place] [address] 73439- 9246 Oct, [place] [address] 42599- 3069 Sep, [place] [address] 44809- 7746 Sep, [place] [address] 66800- 8125 Sep, [place] [address] 37927- 2673 Sep, Seizures R56.9 ; Major depressive disorder, recurrent episode F33.9 and LEROY (generalized anxiety disorder) F41.[address] 75326- 8949 Aug, [place] [id number] [place] [address] 42341- 3776 Aug, COPD (chronic obstructive pulmonary disease) J44.9 ; Chronic pain G89.29 ; BPH (benign prostatic hyperplasia) N40.0 ; Tobacco abuse Z72.0 ; Generalized osteoarthritis M15.9 ; Seizures R56.9 ; Overactive bladder N32.81 ; Depression F32.9 and Anxiety F41.[address] 19845- 8836 Jul, Essential (primary) hypertension I10 ; Pure hypercholesterolemia E78.0 ; Generalized osteoarthrosis, unspecified site 715.00 and Other skilled nursing (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 Z79.[address] 87903- 6661 Jul, [facility] [id number] [place] [address] 97932- 9437 Jul, [facility] [id number] [place] [address] 997457- 1002 Jun, [facility] [id number] [place] [address] 43199- 6247 May, [facility] [address] 888303- 8763 Apr, [facility] [id number] [place] [address] 52480- 0307 Apr, Seizures R56.9 ; COPD (chronic obstructive pulmonary disease ) J44.9 ; Chronic pain G89.29 ; BPH (benign prostatic hyperplasia) N40.0 ; Tobacco abuse Z72.0 ; Generalized osteoarthritis M15.9 ; Insomnia G47.00 ; Anxiety F41.9 and GERD (gastroesophageal reflux disease) K21.9 [facility] [id number] [place] [address] 50291- 1830 Apr, [facility] [id number] [place] [address] 76250- 9122 Mar, [facility] [id number] [place] [address] 54379- 7366 Feb, Major depression, recurrent 296.30 and Generalized anxiety disorder 300.02 [facility] [id number] [place] [address] 04437- 8081 Feb, [facility] [id number] [place] [address] 67176- 7609 Feb, [facility] [id number] [place] [address] [phone]- 8350 Jan, Chronic pain due to injury 338.21 ; Seizures 780.39 ; COPD ( chronic obstructive pulmonary disease) 496 ; BPH (benign prostatic hyperplasia) 600.00 ; Tobacco use disorder 305.1 ; Generalized osteoarthrosis, unspecified site 715.00 ; Anxiety 300.00 ; GERD (gastroesophageal reflux disease) 530.81 and Hypercholesteremia 272.0 [place] [id number] [place] [address] [phone]- 4317 Jan, [place] [id number] [place] [address] 654090- 3361 Jan, [address] 16829- 4296 Jan, [place] [id number] [place] [address] 40533- 1406 Jan, Seizures 780.39 ; COPD (chronic obstructive pulmonary disease) 496 ; Chronic pain due to injury 338.21 ; BPH (benign prostatic hyperplasia) 600.00 ; Tobacco use disorder 305.1 ; Generalized osteoarthrosis, unspecified site 715.00 ; Encounter for long-term (current) use of other medications V58.69 ; GERD (gastroesophageal reflux disease) 530.81 ; Hypercholesteremia 272.0 and Depression [address] [place] [id number] [place] [address] 26743- 1514 Jan, [facility] [id number] [place] [address] 77171- 9713 Jan, Chronic pain due to injury 338.21 [facility] [id number] [place] [address] 20911- 5967 Dec, [place] [id number] [place] [address] 61374- 6087 Dec, Seizures 780.39 ; COPD (chronic obstructive pulmonary disease) 496 ; Chronic pain due to injury 338.21 ; Environmental allergies V15.09 ; GERD (gastroesophageal reflux disease) 530.81 ; Essential hypertension 401.9 ; Psoriasis 696.1 ; PTSD (post-traumatic stress disorder) 309.81 and Depression (emotion) 311 IMMUNIZATIONS No Known Immunizations SOCIAL HISTORY Never Assessed REASON FOR VISIT PLAN OF CARE VITAL SIGNS MEDICATIONS Medication Instructions Dosage Frequency Start Date End Date Duration Status Albuterol Sulfate HFA cfc free 90 mcg/inh Inhalation every 4 hrs 2 puffs as needed 4h Active Trazodone HCl 100 mg Orally Once a day 1 tablet at bedtime 24h Oct, 30 day(s) Active Advair Diskus 250-50 MCG/DOSE Inhalation Twice a day 1 puff 12h Feb, Active RESULTS No Results PROCEDURES No Known [...] dioxide poisoning 2013 Hospitalization History [facility]- CP and SOB 10/17/2017
--- OUTSIDE RECORDS SUMMARY | 2018-05-25 14:37 | XMS REPORT ---
Author Author YUMIKO MICHEL [facility] Address [address] [place] [address] Care Team Providers Care Graduate Intern Name Role Phone YUMIKO MICHEL Unavailable PROBLEMS Type Condition ICD9-CM Code AOT01-VZ Code Onset Dates Condition Status SNOMED Code Problem Generalized osteoarthritis M15.9 Active 827144307 Problem LEROY (generalized anxiety disorder) F41.1 Active 55703339 Problem BPH (benign prostatic hyperplasia) N40.0 Active 276481076 Problem COPD (chronic obstructive pulmonary disease) J44.9 Active 25305598 Problem Tobacco abuse Z72.0 Active 25439279 Problem Chronic pain G89.29 Active 69435636 Problem Seizures R56.9 Active 36916328 Problem Post traumatic seizure disorder R56.1 Active 83691800 Problem Gastroesophageal reflux disease, esophagitis presence not specified K21.9 Active 649296281 Problem Irritable bladder N32.89 Active 066464640 Problem Major depressive disorder, recurrent episode F33.9 Active 710226191 Problem Environmental allergies Z91.09 Active 706940704 Problem Hypercholesterolemia E78.00 Active 18731911 ALLERGIES No Information ENCOUNTERS Encounter Location Date Diagnosis [facility] [address] [address] Feb, [facility] [address], [place] [address] Feb, [facility] [address], [place] [address] Jan, [facility] [id number] [place] [address] 83570- 1928 Jan, [facility] [address], [place] [address] Jan, [facility] [id number] [place] [address] 40155- 7338 Jan, Chronic pain G89.29 [facility] [id number] [place] [address] 75075- 0464 Jan, Generalized osteoarthritis M15.9 ; COPD (chronic obstructive pulmonary disease) J44.9 ; LEROY (generalized anxiety disorder) F41.1 and Gastroesophageal reflux disease, esophagitis presence not specified K21.9 [facility] [address] [address]- [address] Dec, Chronic pain G89.29 [facility] [address] 80136- 2866 Dec, Anxiety F41.9 and COPD (chronic obstructive pulmonary disease) J44.9 [facility] [id number] [place] [address] 79546- 5717 November, Chronic pain G89.29 [facility] [address] [address]- 9999 November, Medicare annual wellness visit, initial Z00.00 ; COPD ( chronic obstructive pulmonary disease) J44.9 ; Major depressive disorder, recurrent episode F33.9 ; Gastroesophageal reflux disease, esophagitis presence not specified K21.9 ; Hypercholesterolemia E78.00 ; Seizures R56.9 ; Chronic pain G89.29 ; BPH (benign prostatic hyperplasia) N40.0 and Encounter for immunization Z23 [facility] [id number] [place] [address] 47373- 5227 November, Chronic pain G89.29 [facility] [id number] [place] [address] 52379- 1274 Oct, [facility] [address] 36873- 2354 Oct, Chronic pain G89.29 [facility] [id number] [place] [address] 28722- 6083 Sep, [facility] [address] 34202- 1382 Sep, COPD (chronic obstructive pulmonary disease) J44.9 ; Tobacco abuse Z72.0 ; Major depressive disorder, recurrent episode F33.9 and Hypercholesterolemia E78.00 [facility] [id number] [place] [address] 58239- 2169 Sep, [facility] [id number] [place] [address] 54759- 4682 Sep, Hypercholesterolemia E78.00 [facility] [address] 32266- 6827 Sep, Chronic pain G89.29 ; COPD (chronic obstructive pulmonary disease) J44.9 ; Major depressive disorder, recurrent episode F33.9 ; Post traumatic seizure disorder R56.1 and Hypercholesterolemia E78.00 [facility] [id number] [place] [address] 58099- 5952 Sep, Chronic pain G89.29 [facility] [address] 64774- 7223 Aug, Major depressive disorder, recurrent episode F33.9 and Gastroesophageal reflux disease, esophagitis presence not specified K21.9 [facility] [address] 94413- 0131 Aug, Chronic pain G89.29 [facility] [id number] [place] [address] 18445- 2974 Jul, Other chronic pain G89.29 and Anxiety F41.9 [facility] [id number] [place] [address] 47189- 1307 Jun, Chronic pain G89.29 and Seizures R56.9 [facility] [address] 54917- 4436 Jun, Other chronic pain G89.29 and Anxiety F41.9 [facility] [id number] [place] [address] 93385- 0600 May, COPD (chronic obstructive pulmonary disease) J44.9 [facility] [id number] [place] [address] 06039- 1821 May, Other chronic pain G89.29 and Anxiety F41.9 [facility] [id number] [place] [address] 68048- 6693 Apr, Other chronic pain G89.29 and Anxiety F41.9 [facility] [id number] [place] [address] 21490- 2158 Mar, Anxiety F41.9 and Other chronic pain G89.29 [facility] [id number] [place] [address] 87779- 1450 Feb, [facility] [address] 83742- 9862 Feb, Anxiety F41.9 and Other chronic pain G89.29 [facility] [id number] [place] [address] 02026- 5927 Feb, [facility] [id number] [place] [address] 51606- 4374 Feb, COPD (chronic obstructive pulmonary disease) J44.9 ; Sleep apnea due to high altitude G47.31 and Oxygen desaturation during sleep G47.34 [facility] [id number] [place] [address] 43716- 4433 Jan, Other chronic pain G89.29 and Anxiety F41.9 [facility] [id number] [place] [address] 83849- 9528 Jan, [facility] [id number] [place] [address] 53065- 6013 Dec, Anxiety F41.9 and Other chronic pain G89.29 [facility] [id number] [place] [address] 52918- 9762 Dec, [facility] [id number] [place] [address] 22849- 0495 Dec, [facility] [id number] [place] [address] 54882- 7822 Dec, Seizures R56.9 ; Chronic pain G89.29 [...] and COPD (chronic obstructive pulmonary disease) J44.9 [facility] [id number] [place] [address] 06458- 1864 Dec, [facility] [address] 34129- 2905 Dec, [facility] [address] 60937- 9273 Dec, Generalized osteoarthritis M15.9 and Anxiety F41.9 [facility] [id number] [place] [address] 85297- 8803 November, Status post shoulder surgery Z98.890 [facility] [id number] [place] [address] 12641- 7588 November, Generalized osteoarthritis M15.9 and Anxiety F41.9 [facility] [id number] [place] [address] 67406- 9083 Oct, [facility] [address] 73307- 8227 Oct, Bilateral hearing loss, unspecified hearing loss [...] ; Anxiety F41.9 and Environmental allergies Z91.09 [facility] [id number]- 0459 Oct, Chronic pain G89.29 and LEROY (generalized anxiety disorder) F41.[address] 34245- 0465 Sep, [facility] [id number]- 1703 Sep, Tear of right rotator cuff, unspecified [...] disease) J44.9 and Hearing reduced, bilateral H91.[address] 85889- 6657 Sep, LEROY (generalized anxiety disorder) F41.1 [facility] [address] 08543- 5974 Aug, [facility] [address] 31230- 2314 Aug, Tear of right rotator cuff, unspecified tear extent M75.101 [place] [id number] [place] [address] 29661- 4951 Aug, Seizures R56.9 ; Chronic pain G89.29 ; Generalized osteoarthritis M15.9 ; COPD (chronic obstructive pulmonary disease) J44.9 ; LEROY (generalized anxiety disorder) F41.1 ; Gastroesophageal reflux disease, esophagitis presence not specified K21.9 ; Scabies B86 ; Hypercholesterolemia E78.00 ; Irritable bladder N32.89 and Edema, unspecified type R60.[address] [id number] [place] [address] 83012- 7764 Jul, Major depressive disorder, recurrent episode F33.9 [facility] [id number] [place] [address] 14244- 1301 Jul, Seizures R56.9 ; Hypercholesterolemia E78.00 ; BPH (benign prostatic hyperplasia) N40.0 ; Major depressive disorder, recurrent episode F33.9 and Edema, unspecified type R60.9 [facility] [id number] [place] [address] 63125- 4493 Jul, Chronic pain G89.29 and LEROY (generalized anxiety disorder) F41.1 [place] [id number] [place] [address] 26935- 0966 Jul, Seizures R56.9 ; COPD (chronic obstructive [...] shoulder M25.511 and Other chronic pain G89.29 [facility] [id number] [place] [address] 61499- 8871 Jun, [facility] [id number] [place] [address] 30192- 6278 May, [facility] [id number] [place] [address] 21620- 1981 Apr, [place] [id number] [place] [address] 31712- 6758 Apr, Seizures R56.9 ; COPD (chronic obstructive pulmonary disease ) J44.9 ; BPH (benign prostatic hyperplasia) N40.0 ; Chronic pain G89.29 ; Tobacco abuse Z72.0 ; LEROY (generalized anxiety disorder) F41.1 ; Environmental allergies Z91.09 ; Irritable bladder N32.89 and Hypercholesterolemia E78.00 [facility] [id number] [place] [address] 38239- 5554 Mar, [facility] [id number] [place] [address] 33997- 9645 Mar, [facility] [id number] [place] [address] 64987- 5707 Mar, [facility] [id number] [place] [address] 14844- 7282 Mar, [facility] [id number] [place] [address] 19074- 1222 Feb, [facility] [id number] [place] [address] 30725- 8368 Feb, Chronic pain G89.29 [facility] [id number] [place] [address] 34090- 5756 Feb, [facility] [id number] [place] [address] 28884- 8136 Jan, [facility] [id number] [place] [address] 28799- 9801 Dec, [facility] [id number] [place] [address] 58246- 9382 Dec, [facility] [id number] [place] [address] 26818- 5450 Dec, Seizures R56.9 ; COPD (chronic obstructive pulmonary disease ) J44.9 ; Chronic pain G89.29 ; BPH (benign prostatic hyperplasia) N40.0 ; Generalized osteoarthritis M15.9 ; Hypercholesterolemia E78.0 ; Overactive bladder N32.81 ; Insomnia, unspecified type G47.00 ; Other depression F32.8 ; Environmental allergies Z91.09 and Gastroesophageal reflux disease, esophagitis presence not specified K21.9 [facility] [id number] [place] [address] 66133- 1483 November, Chronic pain due to trauma G89.21 and Anxiety F41.9 [facility] [id number] [place] [address] 90855- 4748 Oct, [facility] [id number] [place] [address] 33600- 6652 Sep, [facility] [id number] [place] [address] 50265- 3105 Sep, [facility] [id number] [place] [address] 62240- 8771 Sep, [facility] [id number] [place] [address] 06209- 1368 Sep, Seizures R56.9 ; Major depressive disorder, recurrent episode F33.9 and LEROY (generalized anxiety disorder) F41.1 [place] [id number] [place] [address] 75314- 9064 Aug, [facility] [id number] [place] [address] 19360- 7497 Aug, COPD (chronic obstructive pulmonary disease) J44.9 ; Chronic pain G89.29 ; BPH (benign prostatic hyperplasia) N40.0 ; Tobacco abuse Z72.0 ; Generalized osteoarthritis M15.9 ; Seizures R56.9 ; Overactive bladder N32.81 ; Depression F32.9 and Anxiety F41.9 [facility] [id number] [place] [address] 18295- 1431 Jul, Essential (primary) hypertension I10 ; Pure hypercholesterolemia E78.0 ; Generalized osteoarthrosis, unspecified site 715.00 and Other retirement (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 Z79.899 [facility] [id number] [place] [address] 90286- 4799 Jul, [facility] [id number] [place] [address] 85257- 0856 Jul, [facility] [id number] [place] [address] 28223- 3989 Jun, [facility] [id number] [place] [address] 40531- 3953 May, [facility] [id number] [place] [address] 75664- 2584 Apr, [facility] [id number] [place] [address] 55794- 4800 Apr, Seizures R56.9 ; COPD (chronic obstructive pulmonary disease ) J44.9 ; Chronic pain G89.29 ; BPH (benign prostatic hyperplasia) N40.0 ; Tobacco abuse Z72.0 ; Generalized osteoarthritis M15.9 ; Insomnia G47.00 ; Anxiety F41.9 and GERD (gastroesophageal reflux disease) K21.9 [facility] [id number] [place] [address] 43648- 4548 Apr, [address] 80794- 1679 Mar, [place] [id number] [place] [address] 25685- 4848 Feb, Major depression, recurrent 296.30 and Generalized anxiety disorder 300.02 [place] [id number] [place] [address] 08995- 3449 Feb, [facility] [id number] [place] [address] 08239- 5962 Feb, [place] [id number] [place] [address] 61134- 0728 Jan, Chronic pain due to injury 338.21 ; Seizures 780.39 ; COPD ( chronic obstructive pulmonary disease) 496 ; BPH (benign prostatic hyperplasia) 600.00 ; Tobacco use disorder 305.1 ; Generalized osteoarthrosis, unspecified site 715.00 ; Anxiety 300.00 ; GERD (gastroesophageal reflux disease) 530.81 and Hypercholesteremia 272.0 [place] [id number] [place] [address] 79876- 1092 Jan, [address] 1019 Jan, [facility] [id number] [place] [address] 885383- 4790 Jan, [facility] [id number] [place] [address] 495140- 2516 Jan, Seizures 780.39 ; COPD (chronic obstructive pulmonary disease) 496 ; Chronic pain due to injury 338.21 ; BPH (benign prostatic hyperplasia) 600.00 ; Tobacco use disorder 305.1 ; Generalized osteoarthrosis, unspecified site 715.00 ; Encounter for long-term (current) use of other medications V58.69 ; GERD (gastroesophageal reflux disease) 530.81 ; Hypercholesteremia 272.0 and Depression [address] [facility] [id number] [place] [address] 50731793- 1102 Jan, [facility] [address] 010486- 4130 Jan, Chronic pain due to injury 338.21 [facility] [id number] [place] [address] 61062- 8928 Dec, [facility] [id number] [place] [address] 73225- 4875 Dec, Seizures 780.39 ; COPD (chronic obstructive pulmonary disease) 496 ; Chronic pain due to injury 338.21 ; Environmental allergies V15.09 ; GERD (gastroesophageal reflux disease) 530.81 ; Essential hypertension 401.9 ; Psoriasis 696.1 ; PTSD (post-traumatic stress disorder) 309.81 and Depression (emotion) 311 IMMUNIZATIONS No Known Immunizations SOCIAL HISTORY Never Assessed REASON FOR VISIT Oxycodone and alprazolam- 12/29 PLAN OF CARE VITAL SIGNS MEDICATIONS Medication Instructions Dosage Frequency Start Date End Date Duration Status Percocet 10-325 MG Orally 3 times a day 1 tablet as needed 8h Dec, 28 days Active Alprazolam 0.5 MG Orally [...] dioxide poisoning 2013 Hospitalization History [facility] [place]- CP and SOB 10/17/2017
--- OUTSIDE RECORDS SUMMARY | 2018-05-25 14:38 | XMS REPORT ---
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 Name Role Phone YUMIKO MICHEL Unavailable PROBLEMS Type Condition ICD9-CM Code YSO27-GD Code Onset Dates Condition Status SNOMED Code Problem Generalized osteoarthritis M15.9 Active 322967742 Problem LEROY (generalized anxiety disorder) F41.1 Active 55419086 Problem BPH (benign prostatic hyperplasia) N40.0 Active 931537951 Problem COPD (chronic obstructive pulmonary disease) J44.9 Active 66889932 Problem Tobacco abuse Z72.0 Active 63960518 Problem Chronic pain G89.29 Active 99676334 Problem Seizures R56.9 Active 49986644 Problem Post traumatic seizure disorder R56.1 Active 04081635 Problem Gastroesophageal reflux disease, esophagitis presence not specified K21.9 Active 256573793 Problem Irritable bladder N32.89 Active 806337285 Problem Major depressive disorder, recurrent episode F33.9 Active 903562488 Problem Environmental allergies Z91.09 Active 657577359 Problem Hypercholesterolemia E78.00 Active 24465377 ALLERGIES Substance Reaction Event Type Date Status Ultracet headache, "blindness" Drug Allergy November, Active Prozac "stops my heart" Drug Allergy November, Active Codeine Sulfate agitation Drug Allergy November, Active ENCOUNTERS Encounter Location Date Diagnosis [facility] [address] [facility] [id number] [address] Feb, [facility] [address] [id number] [address]88 Feb, [facility] [address] [id number] [address] 4009 Jan, [facility] [address] [id number] [address] 8167 Jan, [facility] [address] [address] 78[address] Jan, [facility] [id number] [place] [address] 14950- 3177 Jan, Chronic pain G89.29 [facility] [id number] [place] [address] 59088- 7271 Jan, Generalized osteoarthritis M15.9 ; COPD (chronic obstructive pulmonary disease) J44.9 ; LEROY (generalized anxiety disorder) F41.1 and Gastroesophageal reflux disease, esophagitis presence not specified K21.9 [place] [id number] [place] [address] 95912- 2706 Dec, Chronic pain G89.29 [place] [id number] [place] [address] 41555- 7663 Dec, Anxiety F41.9 and COPD (chronic obstructive pulmonary disease) J44.9 [place] [id number] [place] [address] 25985- 3224 November, Chronic pain G89.29 [place] [id number] [place] [address] 43994- 3870 November, Medicare annual wellness visit, initial Z00.00 ; COPD ( chronic obstructive pulmonary disease) J44.9 ; Major depressive disorder, recurrent episode F33.9 ; Gastroesophageal reflux disease, esophagitis presence not specified K21.9 ; Hypercholesterolemia E78.00 ; Seizures R56.9 ; Chronic pain G89.29 ; BPH (benign prostatic hyperplasia) N40.0 and Encounter for immunization Z23 [place] [address] [place] [address] 69138- 4519 November, Chronic pain G89.29 [place] [id number] [place] [address] 23301- 1948 Oct, [place] [id number] [place] [address] 30088- 0385 Oct, Chronic pain G89.29 [place] [id number] [place] [address] 91626- 0570 Sep, [place] [id number] [place] [address] 80371- 4995 Sep, COPD (chronic obstructive pulmonary disease) J44.9 ; Tobacco abuse Z72.0 ; Major depressive disorder, recurrent episode F33.9 and Hypercholesterolemia E78.00 [place] [address] 41130- 7145 Sep, [place] [address] 98635- 7931 Sep, Hypercholesterolemia E78.00 [place] [address] 34502- 8390 Sep, Chronic pain G89.29 ; COPD (chronic obstructive pulmonary disease) J44.9 ; Major depressive disorder, recurrent episode F33.9 ; Post traumatic seizure disorder R56.1 and Hypercholesterolemia E78.00 [place] [id number] [place] [address] 31842- 3741 Sep, Chronic pain G89.29 [place] [id number] [place] [address] 11500- 9071 Aug, Major depressive disorder, recurrent episode F33.9 and Gastroesophageal reflux disease, esophagitis presence not specified K21.9 [place] [id number] [place] [address] 37129- 8646 Aug, Chronic pain G89.29 [place] [id number] [place] [address] 47557- 1699 Jul, Other chronic pain G89.29 and Anxiety F41.9 [place] [address] 47320- 6751 Jun, Chronic pain G89.29 and Seizures R56.9 [place] [id number] [place] [address] 67444- 2069 Jun, Other chronic pain G89.29 and Anxiety F41.9 [facility] [id number] [place] [address] 59064- 4104 May, COPD (chronic obstructive pulmonary disease) J44.9 [facility] [id number] [place] [address] 56625- 5738 May, Other chronic pain G89.29 and Anxiety F41.9 [facility] [address] 8[address]69- 7162 Apr, Other chronic pain G89.29 and Anxiety F41.9 [facility] [id number] [place] [address] 07892- 0180 Mar, Anxiety F41.9 and Other chronic pain G89.29 [facility] [id number] [place] [address] 40096- 8955 Feb, [facility] [address] 13055- 4788 Feb, Anxiety F41.9 and Other chronic pain G89.29 [facility] [id number] [place] [address] 13052- 1176 Feb, [facility] [id number] [place] [address] 75077- 0883 Feb, COPD (chronic obstructive pulmonary disease) J44.9 ; Sleep apnea due to high altitude G47.31 and Oxygen desaturation during sleep G47.34 [facility] [id number] [place] [address] 88343- 2187 Jan, Other chronic pain G89.29 and Anxiety F41.9 [facility] [id number] [place] [address] 05688- 9804 Jan, [facility] [id number] [place] [address] 64095- 2765 Dec, Anxiety F41.9 and Other chronic pain G89.29 [facility] [id number] [place] [address] 89098- 1083 Dec, [place] [id number] [place] [address] 81743- 2563 Dec, [place] [id number] [place] [address] 57566- 0912 Dec, Seizures R56.9 ; Chronic pain G89.29 [...] and COPD (chronic obstructive pulmonary disease) J44.9 [place] [id number] [place] [address] 72560- 4539 Dec, [place] [id number] [place] [address] 83450- 4898 Dec, [place] [id number] [place] [address] 69157- 9642 Dec, Generalized osteoarthritis M15.9 and Anxiety F41.9 [place] [id number] [place] [address] 73300- 6678 November, Status post shoulder surgery Z98.890 [place] [id number] [place] [address] 08141- 3534 November, Generalized osteoarthritis M15.9 and Anxiety F41.9 [place] [id number] [place] [address] 21769- 1732 Oct, [place] [id number] [place] [address] 76286- 0797 Oct, Bilateral hearing loss, unspecified hearing loss [...] ; Anxiety F41.9 and Environmental allergies Z91.09 [place] [id number] [place] [address] 58697- 5628 Oct, Chronic pain G89.29 and LEROY (generalized anxiety disorder) F41.1 [place] [id number] [place] [address] 76508- 7286 Sep, [address] 30914- 3637 Sep, Tear of right rotator cuff, unspecified [...] disease) J44.9 and Hearing reduced, bilateral H91.93 [id number] [place] [address] 06639- 5167 Sep, LEROY (generalized anxiety disorder) F41.1 [id number] [place] [address] 18293- 3233 Aug, [id number] [place] [address] 78237- 1985 Aug, Tear of right rotator cuff, unspecified tear extent M75.101 [id number] [place] [address] 79016- 3413 Aug, Seizures R56.9 ; Chronic pain G89.29 ; Generalized osteoarthritis M15.9 ; COPD (chronic obstructive pulmonary disease) J44.9 ; LEROY (generalized anxiety disorder) F41.1 ; Gastroesophageal reflux disease, esophagitis presence not specified K21.9 ; Scabies B86 ; Hypercholesterolemia E78.00 ; Irritable bladder N32.89 and Edema, unspecified type R60.9 [place] [id number] [place] [address] 40370- 0759 Jul, Major depressive disorder, recurrent episode F33.9 [place] [address] 39174- 8412 Jul, Seizures R56.9 ; Hypercholesterolemia E78.00 ; BPH (benign prostatic hyperplasia) N40.0 ; Major depressive disorder, recurrent episode F33.9 and Edema, unspecified type R60.9 [place] [address] 99571- 5610 Jul, Chronic pain G89.29 and LEROY (generalized anxiety disorder) F41.[address] 92266- 2478 Jul, Seizures R56.9 ; COPD (chronic obstructive [...] shoulder M25.511 and Other chronic pain G89.29 [place] [id number] [place] [address] 07142- 0250 Jun, [place] [id number] [place] [address] 97568- 8979 May, [place] [id number] [place] [address] 22561- 9482 Apr, [place] [id number] [place] [address] 15937- 9722 Apr, Seizures R56.9 ; COPD (chronic obstructive pulmonary disease ) J44.9 ; BPH (benign prostatic hyperplasia) N40.0 ; Chronic pain G89.29 ; Tobacco abuse Z72.0 ; LEROY (generalized anxiety disorder) F41.1 ; Environmental allergies Z91.09 ; Irritable bladder N32.89 and Hypercholesterolemia E78.00 [facility] [id number] [place] [address] 16117- 9265 Mar, [facility] [address] 92210- 6966 Mar, [facility] [id number] [place] [address] 26155- 1345 Mar, [facility] [address] 19412- 4490 Mar, [facility] [id number] [place] [address] 49515- 1970 Feb, [facility] [id number] [place] [address] 32706- 2697 Feb, Chronic pain G89.29 [facility] [id number] [place] [address] 59266- 2560 Feb, [facility] [id number] [place] [address] 06166- 4604 Jan, [facility] [id number] [place] [address] 90669- 1009 Dec, [facility] [id number] [place] [address] 57256- 8930 Dec, [facility] [id number] [place] [address] 26647- 7683 Dec, Seizures R56.9 ; COPD (chronic obstructive pulmonary disease ) J44.9 ; Chronic pain G89.29 ; BPH (benign prostatic hyperplasia) N40.0 ; Generalized osteoarthritis M15.9 ; Hypercholesterolemia E78.0 ; Overactive bladder N32.81 ; Insomnia, unspecified type G47.00 ; Other depression F32.8 ; Environmental allergies Z91.09 and Gastroesophageal reflux disease, esophagitis presence not specified K21.9 [address] [id number] [place] [address] 64590- 7477 November, Chronic pain due to trauma G89.21 and Anxiety F41.9 [place] [id number] [place] [address] 29357- 6464 Oct, [place] [address] 83892- 2123 Sep, [place] [id number] [place] [address] 59518- 8729 Sep, [place] [address] 12587- 9295 Sep, [place] [id number] [place] [address] 32339- 1547 Sep, Seizures R56.9 ; Major depressive disorder, recurrent episode F33.9 and LEROY (generalized anxiety disorder) F41.1 [place] [id number] [place] [address] 19754- 6387 Aug, [place] [id number] [place] [address] 80479- 5680 02 Aug, 2015 COPD (chronic obstructive pulmonary disease) J44.9 ; Chronic pain G89.29 ; BPH (benign prostatic hyperplasia) N40.0 ; Tobacco abuse Z72.0 ; Generalized osteoarthritis M15.9 ; Seizures R56.9 ; Overactive bladder N32.81 ; Depression F32.9 and Anxiety F41.9 [place] [id number] [place] [address] 82660- 5332 Jul, Essential (primary) hypertension I10 ; Pure hypercholesterolemia E78.0 ; Generalized osteoarthrosis, unspecified site 715.00 and 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 [place] [id number] [place] [address] 11858- 9382 Jul, [place] [address] [address]- 6537 Jul, [facility] [id number] [place] [address] 169634- 7105 Jun, [place] [id number] [place] [address] 51850- 5410 May, [place] [address] 058449- 1736 Apr, [place] [id number] [place] [address] 60711737- 4284 Apr, Seizures R56.9 ; COPD (chronic obstructive pulmonary disease ) J44.9 ; Chronic pain G89.29 ; BPH (benign prostatic hyperplasia) N40.0 ; Tobacco abuse Z72.0 ; Generalized osteoarthritis M15.9 ; Insomnia G47.00 ; Anxiety F41.9 and GERD (gastroesophageal reflux disease) K21.9 [id number] [place] [address] 48291- 1373 Apr, [place] [id number] [place] [address] 59590- 9611 Mar, [place] [id number] [place] [address] 93557- 0609 Feb, Major depression, recurrent 296.30 and Generalized anxiety disorder 300.02 [id number] [place] [address] 28822- 4855 Feb, [place] [id number] [place] [address] 40970- 2560 Feb, [place] [id number] [place] [address] 07962- 0816 Jan, Chronic pain due to injury 338.21 ; Seizures 780.39 ; COPD ( chronic obstructive pulmonary disease) 496 ; BPH (benign prostatic hyperplasia) 600.00 ; Tobacco use disorder 305.1 ; Generalized osteoarthrosis, unspecified site 715.00 ; Anxiety 300.00 ; GERD (gastroesophageal reflux disease) 530.81 and Hypercholesteremia 272.0 [place] [address] [address]- 5651 Jan, [place] [id number] [place] [address] 88258- 8521 Jan, [place] [address] [place] [address] 26129- 8686 Jan, [place] [id number] [place] [address] 428219- 8387 Jan, Seizures 780.39 ; COPD (chronic obstructive pulmonary disease) 496 ; Chronic pain due to injury 338.21 ; BPH (benign prostatic hyperplasia) 600.00 ; Tobacco use disorder 305.1 ; Generalized osteoarthrosis, unspecified site 715.00 ; Encounter for long-term (current) use of other medications V58.69 ; GERD (gastroesophageal reflux disease) 530.81 ; Hypercholesteremia 272.0 and Depression [address] [place] [id number] [place] [address] 92423- 1303 Jan, [place] [id number] [place] [address] 53799- 2939 Jan, Chronic pain due to injury 338.21 [place] [id number] [place] [address] 11317- 6624 Dec, [place] [address] [place] [address] 34698- 1796 Dec, Seizures 780.39 ; COPD (chronic obstructive pulmonary disease) 496 ; Chronic pain due to injury 338.21 ; Environmental allergies V15.09 ; GERD (gastroesophageal reflux disease) 530.81 ; Essential hypertension 401.9 ; Psoriasis 696.1 ; PTSD (post-traumatic stress disorder) 309.81 and Depression (emotion) 311 IMMUNIZATIONS Vaccine Route Administration Date Status PPSV23 (PNEUMOVAX) IM Intramuscular December 08, 2017 Administered SOCIAL HISTORY Never Assessed REASON FOR VISIT Medicare AWV - Initial Visit [facility], Lower back pain PLAN OF CARE Activity Details Follow Up 1 Year Reason: VITAL SIGNS Height 67.5 in 2017-12-08 Weight 183.7 lbs 2017-12-08 Temperature 97.6 degrees Fahrenheit 2017-12-08 Heart Rate 90 bpm 2017-12-08 Respiratory Rate 18 2017-12-08 Oximetry on room air:98 % 2017-12-08 BMI 28.34 kg/m2 2017-12-08 Blood pressure systolic 124 mmHg 2017-12-08 Blood pressure diastolic 78 mmHg 2017-12-08 MEDICATIONS Medication Instructions Dosage Frequency Start Date End Date Duration Status Albuterol Sulfate (2.5 MG/3ML) 0.083% Inhalation 4 times a day DX: J44.9 USE ONE VIAL PER NEBULIZER FOUR TIMES DAILY 13 Active Cymbalta 60 mg Orally Once a day 1 capsule 24h Active Albuterol Sulfate HFA cfc free 90 mcg/inh Inhalation every 4 hrs 2 puffs as needed 4h Active Advair Diskus 250-50 MCG/DOSE Inhalation Twice a day 1 puff 12h Feb, Active Keppra 500 mg Orally 2 times a day 1 tablet 12h 30 Active Tylenol 325 MG Orally every 6 hrs 2 tablets as needed 6h Active Oxygen by inhalation route nocturnal 2 liters Oct, Active Fluticasone Propionate 50 MCG/ACT Nasally 2 times a day 2 sprays in each nostril 12h Active Lipitor 20 mg Orally Once a day 1 tablet 24h Active Abilify 10 mg Orally Once in the morning 1 tablet Active Omeprazole 20 mg Orally 2 times a day 1 capsule 12h Active Benadryl Allergy 25 MG Orally every 6 hrs 1 tablet as needed 6h Active Alprazolam 0.5 MG Orally 2 times a day prn 1 tablet Jul, 28 days Active Trazodone HCl 100 mg Orally Once a day 1 tablet at bedtime 24h Oct, 30 day(s) Active Flonase Allergy Relief 50 MCG/ACT Nasally 2 times a day 1-2 spray in each nostril 12h Active Percocet 10-325 MG Orally 3 times a day 1 tablet as needed 8h November, 28 days Active Fish Oil 1000 MG Orally Once a day 3 capsule 24h Active Nebulizer Active RESULTS No Results PROCEDURES Procedure Date Ordered Result Body Site [facility] VISIT IPPE/AWV December 08, 2017 ANNUAL WELLNES VST; PERSNL PPS INIT December 08, 2017 SINGLE IMMUNIZATION ADMIN December 08, 2017 PT TOBACCO SCREEN RCVD TLK December 08, 2017 FALL RISK ASSESSMENT DOCD December 08, 2017 ADMN PNEUMCOC VAC NO FEE SCHED DAY December 08, 2017 PPSV23 (PNEUMOVAX) December 08, 2017 INSTRUCTIONS MEDICATIONS ADMINISTERED No Known Medications MEDICAL [...] dioxide poisoning 2013 Hospitalization History [facility]- CP and SOB 10/17/2017
--- OUTSIDE RECORDS SUMMARY | 2018-05-25 14:38 | XMS REPORT ---
Author Author YUMIKO MICHEL [facility] Address [address] [place] [address] Care Team Providers Care Rn L And D Name Role Phone YUMIKO MICHEL Unavailable PROBLEMS Type Condition ICD9-CM Code YKB12-LX Code Onset Dates Condition Status SNOMED Code Problem Generalized osteoarthritis M15.9 Active 190745191 Problem LEROY (generalized anxiety disorder) F41.1 Active 63793471 Problem BPH (benign prostatic hyperplasia) N40.0 Active 197665703 Problem COPD (chronic obstructive pulmonary disease) J44.9 Active 73026065 Problem Tobacco abuse Z72.0 Active 07809562 Problem Chronic pain G89.29 Active 60228693 Problem Seizures R56.9 Active 82961967 Problem Post traumatic seizure disorder R56.1 Active 57490853 Problem Gastroesophageal reflux disease, esophagitis presence not specified K21.9 Active 458167867 Problem Irritable bladder N32.89 Active 387328572 Problem Major depressive disorder, recurrent episode F33.9 Active 586012037 Problem Environmental allergies Z91.09 Active 539618772 Problem Hypercholesterolemia E78.00 Active 40611734 ALLERGIES No Information ENCOUNTERS Encounter Location Date Diagnosis [facility] [id number] [address] Feb, [facility] [address] [address] Feb, [facility] [address] [address] Jan, [facility] [id number] [place] [address] 57854- 8463 Jan, [facility] [address] [address] Jan, [facility] [id number] [place] [address] 11692- 6822 Jan, Chronic pain G89.29 [facility] [place] [id number] [place] [address] 46425- 1174 Jan, Generalized osteoarthritis M15.9 ; COPD (chronic obstructive pulmonary disease) J44.9 ; LEROY (generalized anxiety disorder) F41.1 and Gastroesophageal reflux disease, esophagitis presence not specified K21.9 [place] [address] [address]- [address] Dec, Chronic pain G89.29 [place] [address] [address]- 3690 Dec, Anxiety F41.9 and COPD (chronic obstructive pulmonary disease) J44.9 [facility] [id number] [place] [address] 97941- 8386 November, Chronic pain G89.29 [place] [address] 36[address]- 2831 November, Medicare annual wellness visit, initial Z00.00 ; COPD ( chronic obstructive pulmonary disease) J44.9 ; Major depressive disorder, recurrent episode F33.9 ; Gastroesophageal reflux disease, esophagitis presence not specified K21.9 ; Hypercholesterolemia E78.00 ; Seizures R56.9 ; Chronic pain G89.29 ; BPH (benign prostatic hyperplasia) N40.0 and Encounter for immunization Z23 [facility] [facility] [id number] [place] [address] 80212- 0778 November, Chronic pain G89.29 [facility] [place] [id number] [place] [address] 62359- 1869 Oct, [place] [address] 26014- 2806 Oct, Chronic pain G89.29 [facility] [id number] [place] [address] 30935- 2408 Sep, [place] [address] 1000[address]- 1153 Sep, COPD (chronic obstructive pulmonary disease) J44.9 ; Tobacco abuse Z72.0 ; Major depressive disorder, recurrent episode F33.9 and Hypercholesterolemia E78.00 [place] [id number] [place] [address] 34911- 9753 Sep, [place] [id number] [place] [address] 99009- 0115 Sep, Hypercholesterolemia E78.00 [place] [address] 65748- 2670 Sep, Chronic pain G89.29 ; COPD (chronic obstructive pulmonary disease) J44.9 ; Major depressive disorder, recurrent episode F33.9 ; Post traumatic seizure disorder R56.1 and Hypercholesterolemia E78.00 [place] [id number] [place] [address] 81361- 3539 Sep, Chronic pain G89.29 [place] [address] 89777- 1016 Aug, Major depressive disorder, recurrent episode F33.9 and Gastroesophageal reflux disease, esophagitis presence not specified K21.9 [facility] [address] 90102- 7898 Aug, Chronic pain G89.29 [facility] [place] [id number] [place] [address] 71787- 4569 Jul, Other chronic pain G89.29 and Anxiety F41.9 [facility] [place] [id number] [place] [address] 38990- 3072 Jun, Chronic pain G89.29 and Seizures R56.9 [place] [address] 69693- 4375 Jun, Other chronic pain G89.29 and Anxiety F41.9 [facility] [id number] [place] [address] 60383- 1271 May, COPD (chronic obstructive pulmonary disease) J44.9 [facility] [id number] [place] [address] 87349- 2738 May, Other chronic pain G89.29 and Anxiety F41.9 [facility] [id number] [place] [address] 91868- 9182 Apr, Other chronic pain G89.29 and Anxiety F41.9 [facility] [id number] [place] [address] 21462- 6496 Mar, Anxiety F41.9 and Other chronic pain G89.29 [facility] [id number] [place] [address] 85820- 3071 Feb, [facility] [address] 13962- 3002 Feb, Anxiety F41.9 and Other chronic pain G89.29 [facility] [id number] [place] [address] 44490- 2188 Feb, [facility] [id number] [place] [address] 38483- 1660 Feb, COPD (chronic obstructive pulmonary disease) J44.9 ; Sleep apnea due to high altitude G47.31 and Oxygen desaturation during sleep G47.34 [facility] [id number] [place] [address] 40582- 8577 Jan, Other chronic pain G89.29 and Anxiety F41.9 [facility] [id number] [place] [address] 03044- 8600 Jan, [facility] [id number] [place] [address] 50808- 9035 Dec, Anxiety F41.9 and Other chronic pain G89.29 [facility] [id number] [place] [address] 68881- 6638 Dec, [facility] [id number] [place] [address] 24248- 7104 Dec, [facility] [id number] [place] [address] 76296- 8400 Dec, Seizures R56.9 ; Chronic pain G89.29 [...] and COPD (chronic obstructive pulmonary disease) J44.9 [place] [id number] [place] [address] 23956- 4050 Dec, [place] [address] 58159- 2028 Dec, [place] [address] 02948- 1515 Dec, Generalized osteoarthritis M15.9 and Anxiety F41.9 [facility] [id number] [place] [address] 19745- 0701 November, Status post shoulder surgery Z98.890 [facility] [place] [id number] [place] [address] 20230- 5302 November, Generalized osteoarthritis M15.9 and Anxiety F41.9 [facility] [id number] [place] [address] 59339- 1613 Oct, [place] [address] 45111- 9529 Oct, Bilateral hearing loss, unspecified hearing loss [...] ; Anxiety F41.9 and Environmental allergies Z91.09 [place] [address] [place] [id number] Oct, Chronic pain G89.29 and LEROY (generalized anxiety disorder) F41.[address] 10991- 9648 Sep, [place] [address] [place] [id number]- [address]23 Sep, Tear of right rotator cuff, unspecified [...] disease) J44.9 and Hearing reduced, bilateral H91.[address] 48410- 2799 Sep, LEROY (generalized anxiety disorder) F41.1 [place] [address] 12159- 3599 Aug, [place] [address] 60765- 8383 Aug, Tear of right rotator cuff, unspecified tear extent M75.101 [place] [id number] [place] [address] 69526- 8507 Aug, Seizures R56.9 ; Chronic pain G89.29 ; Generalized osteoarthritis M15.9 ; COPD (chronic obstructive pulmonary disease) J44.9 ; LEROY (generalized anxiety disorder) F41.1 ; Gastroesophageal reflux disease, esophagitis presence not specified K21.9 ; Scabies B86 ; Hypercholesterolemia E78.00 ; Irritable bladder N32.89 and Edema, unspecified type R60.[address] [place] [id number] [place] [address] 88191- 8320 Jul, Major depressive disorder, recurrent episode F33.9 [place] [id number] [place] [address] 75077- 9326 Jul, Seizures R56.9 ; Hypercholesterolemia E78.00 ; BPH (benign prostatic hyperplasia) N40.0 ; Major depressive disorder, recurrent episode F33.9 and Edema, unspecified type R60.9 [place] [id number] [place] [address] 77696- 8154 Jul, Chronic pain G89.29 and LEROY (generalized anxiety disorder) F41.1 [place] [id number] [place] [address] 38955- 7663 Jul, Seizures R56.9 ; COPD (chronic obstructive [...] shoulder M25.511 and Other chronic pain G89.29 [place] [id number] [place] [address] 40833- 8230 Jun, [place] [id number] [place] [address] 02806- 8975 May, [place] [id number] [place] [address] 00556- 3664 Apr, [place] [id number] [place] [address] 00122- 0492 Apr, Seizures R56.9 ; COPD (chronic obstructive pulmonary disease ) J44.9 ; BPH (benign prostatic hyperplasia) N40.0 ; Chronic pain G89.29 ; Tobacco abuse Z72.0 ; LEROY (generalized anxiety disorder) F41.1 ; Environmental allergies Z91.09 ; Irritable bladder N32.89 and Hypercholesterolemia E78.00 [facility] [id number] [place] [address] 33378- 1912 Mar, [facility] [id number] [place] [address] 21002- 7932 Mar, [facility] [id number] [place] [address] 76608- 6997 Mar, [facility] [id number] [place] [address] 42477- 8688 Mar, [facility] [id number] [place] [address] 05050- 7795 Feb, [facility] [id number] [place] [address] 91862- 4120 Feb, Chronic pain G89.29 [facility] [id number] [place] [address] 30524- 6419 Feb, [facility] [id number] [place] [address] 91783- 9516 Jan, [facility] [id number] [place] [address] 14725- 5847 Dec, [facility] [id number] [place] [address] 33107- 0846 Dec, [facility] [id number] [place] [address] 30830- 2854 Dec, Seizures R56.9 ; COPD (chronic obstructive pulmonary disease ) J44.9 ; Chronic pain G89.29 ; BPH (benign prostatic hyperplasia) N40.0 ; Generalized osteoarthritis M15.9 ; Hypercholesterolemia E78.0 ; Overactive bladder N32.81 ; Insomnia, unspecified type G47.00 ; Other depression F32.8 ; Environmental allergies Z91.09 and Gastroesophageal reflux disease, esophagitis presence not specified K21.9 [facility] [id number] [place] [address] 73053- 4183 November, Chronic pain due to trauma G89.21 and Anxiety F41.9 [place] [id number] [place] [address] 15077- 8002 Oct, [facility] [id number] [place] [address] 13157- 1767 Sep, [place] [id number] [place] [address] 34080- 8620 Sep, [place] [id number] [place] [address] 45500- 6054 Sep, [place] [id number] [place] [address] 70886- 9811 Sep, Seizures R56.9 ; Major depressive disorder, recurrent episode F33.9 and LEROY (generalized anxiety disorder) F41.1 [place] [id number] [place] [address] 39516- 8736 Aug, [place] [id number] [place] [address] 15038- 3123 Aug, COPD (chronic obstructive pulmonary disease) J44.9 ; Chronic pain G89.29 ; BPH (benign prostatic hyperplasia) N40.0 ; Tobacco abuse Z72.0 ; Generalized osteoarthritis M15.9 ; Seizures R56.9 ; Overactive bladder N32.81 ; Depression F32.9 and Anxiety F41.9 [place] [id number] [place] [address] 55937- 8478 Jul, Essential (primary) hypertension I10 ; Pure hypercholesterolemia E78.0 ; Generalized osteoarthrosis, unspecified site 715.00 and Other chcf (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 Z79.899 [place] [id number] [place] [address] 42192- 1029 Jul, [place] [id number] [place] [address] 24440- 9815 Jul, [place] [id number] [place] [address] 99600- 0596 Jun, [facility] [id number] [place] [address] 90338- 4687 May, [place] [id number] [place] [address] 98270- 2163 Apr, [place] [id number] [place] [address] 01453- 5344 Apr, Seizures R56.9 ; COPD (chronic obstructive pulmonary disease ) J44.9 ; Chronic pain G89.29 ; BPH (benign prostatic hyperplasia) N40.0 ; Tobacco abuse Z72.0 ; Generalized osteoarthritis M15.9 ; Insomnia G47.00 ; Anxiety F41.9 and GERD (gastroesophageal reflux disease) K21.9 [place] [id number] [place] [address] 30552- 5390 Apr, [address] 10933- 8854 Mar, [place] [id number] [place] [address] 44478- 5334 Feb, Major depression, recurrent 296.30 and Generalized anxiety disorder 300.02 [place] [id number] [place] [address] 64240- 2414 Feb, [place] [id number] [place] [address] 80999- 2874 Feb, [place] [id number] [place] [address] 72684- 6682 Jan, Chronic pain due to injury 338.21 ; Seizures 780.39 ; COPD ( chronic obstructive pulmonary disease) 496 ; BPH (benign prostatic hyperplasia) 600.00 ; Tobacco use disorder 305.1 ; Generalized osteoarthrosis, unspecified site 715.00 ; Anxiety 300.00 ; GERD (gastroesophageal reflux disease) 530.81 and Hypercholesteremia 272.0 [place] [id number] [place] [address] 73772- 6932 Jan, [address] [address] 2631 Jan, [place] [id number] [place] [address] 491965- 1077 Jan, [place] [id number] [place] [address] 480935- 8160 Jan, Seizures 780.39 ; COPD (chronic obstructive pulmonary disease) 496 ; Chronic pain due to injury 338.21 ; BPH (benign prostatic hyperplasia) 600.00 ; Tobacco use disorder 305.1 ; Generalized osteoarthrosis, unspecified site 715.00 ; Encounter for long-term (current) use of other medications V58.69 ; GERD (gastroesophageal reflux disease) 530.81 ; Hypercholesteremia 272.0 and Depression [address] [place] [id number] [place] [address] 84017827- 5246 Jan, [place] [address] 58223- 2353 Jan, Chronic pain due to injury 338.21 [place] [id number] [place] [address] 50364- 1487 Dec, [place] [id number] [place] [address] 21347- 7836 Dec, Seizures 780.39 ; COPD (chronic obstructive pulmonary disease) 496 ; Chronic pain due to injury 338.21 ; Environmental allergies V15.09 ; GERD (gastroesophageal reflux disease) 530.81 ; Essential hypertension 401.9 ; Psoriasis 696.1 ; PTSD (post-traumatic stress disorder) 309.81 and Depression (emotion) 311 IMMUNIZATIONS No Known Immunizations SOCIAL HISTORY Never Assessed REASON FOR VISIT Oxycodone and Xanax- Due 5/4 PLAN OF CARE VITAL SIGNS MEDICATIONS Medication [...] dioxide poisoning 2013 Hospitalization History [facility]- CP and SOB 10/17/2017
--- OUTSIDE RECORDS SUMMARY | 2018-05-25 14:39 | XMS REPORT ---
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 Name Role Phone YUMIKO MICHEL Unavailable PROBLEMS Type Condition ICD9-CM Code IIW68-OH Code Onset Dates Condition Status SNOMED Code Problem Generalized osteoarthritis M15.9 Active 516575100 Problem LEROY (generalized anxiety disorder) F41.1 Active 42909652 Problem BPH (benign prostatic hyperplasia) N40.0 Active 752201412 Problem COPD (chronic obstructive pulmonary disease) J44.9 Active 99419086 Problem Tobacco abuse Z72.0 Active 30462908 Problem Chronic pain G89.29 Active 82539512 Problem Seizures R56.9 Active 96559696 Problem Post traumatic seizure disorder R56.1 Active 44750967 Problem Gastroesophageal reflux disease, esophagitis presence not specified K21.9 Active 517338252 Problem Irritable bladder N32.89 Active 738241792 Problem Major depressive disorder, recurrent episode F33.9 Active 850541781 Problem Environmental allergies Z91.09 Active 532452426 Problem Hypercholesterolemia E78.00 Active 11316492 ALLERGIES Substance Reaction Event Type Date Status Ultracet headache, "blindness" Drug Allergy Sep, Active Prozac "stops my heart" Drug Allergy Sep, Active Codeine Sulfate agitation Drug Allergy Sep, Active ENCOUNTERS Encounter Location Date Diagnosis [facility] [id number] [address] Jan, Generalized osteoarthritis M15.9 ; COPD (chronic obstructive pulmonary disease) J44.9 ; LEROY (generalized anxiety disorder) F41.1 and Gastroesophageal reflux disease, esophagitis presence not specified K21.9 [facility] [id number] [address] Dec, Chronic pain G89.29 [facility] [id number] [place] [address] 46642- 8325 Dec, Anxiety F41.9 and COPD (chronic obstructive pulmonary disease) J44.9 [place] [id number] [place] [address] 47588- 3222 November, Chronic pain G89.29 [place] [id number] [place] [address] 94336- 5884 November, Medicare annual wellness visit, initial Z00.00 ; COPD ( chronic obstructive pulmonary disease) J44.9 ; Major depressive disorder, recurrent episode F33.9 ; Gastroesophageal reflux disease, esophagitis presence not specified K21.9 ; Hypercholesterolemia E78.00 ; Seizures R56.9 ; Chronic pain G89.29 ; BPH (benign prostatic hyperplasia) N40.0 and Encounter for immunization Z23 [place] [id number] [place] [address] 93365- 3960 November, Chronic pain G89.29 [facility] [facility] [id number] [place] [address] 44087- 6871 Oct, [place] [id number] [place] [address] 26041- 8306 Oct, Chronic pain G89.29 [facility] [id number] [place] [address] 50740- 8062 Sep, [place] [id number] [place] [address] 94588- 9935 Sep, COPD (chronic obstructive pulmonary disease) J44.9 ; Tobacco abuse Z72.0 ; Major depressive disorder, recurrent episode F33.9 and Hypercholesterolemia E78.00 [place] [id number] [address] Sep, [place] [id number] [place] [address] 33145- 9728 Sep, Hypercholesterolemia E78.00 [facility] [address] [address] Sep, Chronic pain G89.29 ; COPD (chronic obstructive pulmonary disease) J44.9 ; Major depressive disorder, recurrent episode F33.9 ; Post traumatic seizure disorder R56.1 and Hypercholesterolemia E78.00 [place] [id number] [place] [address] 43977- 3489 Sep, Chronic pain G89.29 [place] [id number] [place] [address] 17528- 0328 Aug, Major depressive disorder, recurrent episode F33.9 and Gastroesophageal reflux disease, esophagitis presence not specified K21.9 [place] [id number] [place] [address] 63960- 2628 06 Aug, 2017 Chronic pain G89.29 [place] [address] [address]- 9091 Jul, Other chronic pain G89.29 and Anxiety F41.9 [place] [address] 92190- 9684 15 Jun, 2017 Chronic pain G89.29 and Seizures R56.9 [facility] [id number] [place] [address] 45945- 0124 13 Jun, 2017 Other chronic pain G89.29 and Anxiety F41.9 [place] [id number] [place] [address] 21017- 8139 May, COPD (chronic obstructive pulmonary disease) J44.9 [place] [id number] [place] [address] 28636- 7441 16 May, 2017 Other chronic pain G89.29 and Anxiety F41.9 [place] [id number] [place] [address] 08143- 5528 Apr, Other chronic pain G89.29 and Anxiety F41.9 [facility] [id number] [place] [address] 41009- 7959 Mar, Anxiety F41.9 and Other chronic pain G89.29 [place] [id number] [place] [address] 47996- 4822 Feb, [facility] [id number] [place] [address] 38152- 2451 Feb, Anxiety F41.9 and Other chronic pain G89.29 [facility] [id number] [place] [address] 44611- 1227 Feb, [facility] [id number] [place] [address] 29978- 5856 Feb, COPD (chronic obstructive pulmonary disease) J44.9 ; Sleep apnea due to high altitude G47.31 and Oxygen desaturation during sleep G47.34 [place] [id number] [place] [address] 62426- 4393 Jan, Other chronic pain G89.29 and Anxiety F41.9 [place] [id number] [place] [address] 86055- 7282 Jan, [place] [id number] [place] [address] 31532- 9790 Dec, Anxiety F41.9 and Other chronic pain G89.29 [place] [id number] [place] [address] 77849- 7359 Dec, [facility] [address] [place] [address] 27642- 9328 Dec, [place] [id number] [place] [address] 36504- 0724 Dec, Seizures R56.9 ; Chronic pain G89.29 [...] and COPD (chronic obstructive pulmonary disease) J44.9 [facility] [id number] [place] [address] 49674- 6163 Dec, [place] [id number] [place] [address] 94790- 8517 Dec, [place] [address] 11368- 0930 Dec, Generalized osteoarthritis M15.9 and Anxiety F41.9 [place] [address] 62420- 0049 November, Status post shoulder surgery Z98.890 [place] [address] 59407- 8235 November, Generalized osteoarthritis M15.9 and Anxiety F41.9 [place] [address] 73694- 3400 Oct, [place] [address] 92330- 5440 Oct, Bilateral hearing loss, unspecified hearing loss [...] ; Anxiety F41.9 and Environmental allergies Z91.09 [place] [id number] [place] [address] 53999- 8651 Oct, Chronic pain G89.29 and LEROY (generalized anxiety disorder) F41.1 [place] [address] 02083- 0681 Sep, [place] [address] 15660- 4919 Sep, Tear of right rotator cuff, unspecified [...] disease) J44.9 and Hearing reduced, bilateral H91.93 [place] [address] 75305- 5031 Sep, LEROY (generalized anxiety disorder) F41.[address] 01925- 5457 Aug, [place] [address] 99409- 0869 Aug, Tear of right rotator cuff, unspecified tear extent M75.101 [place] [id number] [place] [address] 93529- 3191 Aug, Seizures R56.9 ; Chronic pain G89.29 ; Generalized osteoarthritis M15.9 ; COPD (chronic obstructive pulmonary disease) J44.9 ; LEROY (generalized anxiety disorder) F41.1 ; Gastroesophageal reflux disease, esophagitis presence not specified K21.9 ; Scabies B86 ; Hypercholesterolemia E78.00 ; Irritable bladder N32.89 and Edema, unspecified type R60.9 [place] [id number] [place] [address] 33557- 9111 Jul, Major depressive disorder, recurrent episode F33.9 [place] [id number] [place] [address] 07637- 7416 Jul, Seizures R56.9 ; Hypercholesterolemia E78.00 ; BPH (benign prostatic hyperplasia) N40.0 ; Major depressive disorder, recurrent episode F33.9 and Edema, unspecified type R60.9 [place] [id number] [place] [address] 85450- 8553 Jul, Chronic pain G89.29 and LEROY (generalized anxiety disorder) F41.1 [place] [id number] [place] [address] 56646- 7966 Jul, Seizures R56.9 ; COPD (chronic obstructive [...] shoulder M25.511 and Other chronic pain G89.29 [place] [address] 03495- 3607 Jun, [place] [address] 43495- 7751 May, [place] [address] 02996- 8601 Apr, [place] [id number] [place] [address] 51136- 4543 Apr, Seizures R56.9 ; COPD (chronic obstructive pulmonary disease ) J44.9 ; BPH (benign prostatic hyperplasia) N40.0 ; Chronic pain G89.29 ; Tobacco abuse Z72.0 ; LEROY (generalized anxiety disorder) F41.1 ; Environmental allergies Z91.09 ; Irritable bladder N32.89 and Hypercholesterolemia E78.00 [place] [id number] [place] [address] 00241- 8043 Mar, [place] [address] 70449- 8624 Mar, [place] [id number] [place] [address] 12018- 7392 Mar, [place] [id number] [place] [address] 60928- 4403 Mar, [place] [id number] [place] [address] 70222- 4632 Feb, [facility] [id number] [place] [address] 66930- 2555 Feb, Chronic pain G89.29 [facility] [id number] [place] [address] 08940- 0389 Feb, [facility] [address] 30098- 0522 Jan, [facility] [id number] [place] [address] 09314- 9283 Dec, [facility] [address] 64824- 9911 Dec, [facility] [id number] [place] [address] 32634- 0939 Dec, Seizures R56.9 ; COPD (chronic obstructive pulmonary disease ) J44.9 ; Chronic pain G89.29 ; BPH (benign prostatic hyperplasia) N40.0 ; Generalized osteoarthritis M15.9 ; Hypercholesterolemia E78.0 ; Overactive bladder N32.81 ; Insomnia, unspecified type G47.00 ; Other depression F32.8 ; Environmental allergies Z91.09 and Gastroesophageal reflux disease, esophagitis presence not specified K21.9 [facility] [id number] [place] [address] 01393- 1814 November, Chronic pain due to trauma G89.21 and Anxiety F41.9 [facility] [id number] [place] [address] 69541- 3792 Oct, [facility] [id number] [place] [address] 28399- 0514 Sep, [facility] [id number] [place] [address] 24948- 7871 14 Sep, 2015 [facility] [id number] [place] [address] 73814- 2547 Sep, [facility] [id number] [place] [address] 73351- 4989 Sep, Seizures R56.9 ; Major depressive disorder, recurrent episode F33.9 and LEROY (generalized anxiety disorder) F41.1 [place] [id number] [place] [address] 13130- 3161 Aug, [place] [id number] [place] [address] 80054- 8750 Aug, COPD (chronic obstructive pulmonary disease) J44.9 ; Chronic pain G89.29 ; BPH (benign prostatic hyperplasia) N40.0 ; Tobacco abuse Z72.0 ; Generalized osteoarthritis M15.9 ; Seizures R56.9 ; Overactive bladder N32.81 ; Depression F32.9 and Anxiety F41.9 [place] [id number] [place] [address] 15393- 7615 Jul, Essential (primary) hypertension I10 ; Pure hypercholesterolemia E78.0 ; Generalized osteoarthrosis, unspecified site 715.00 and Other alf (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 Z79.899 [place] [id number] [place] [address] 69602- 9152 Jul, [place] [id number] [place] [address] 47307- 7634 Jul, [place] [id number] [place] [address] 42254- 8524 Jun, [place] [id number] [place] [address] 03785- 2933 May, [place] [id number] [place] [address] 61217- 0552 Apr, [place] [id number] [place] [address] 48595- 5739 Apr, Seizures R56.9 ; COPD (chronic obstructive pulmonary disease ) J44.9 ; Chronic pain G89.29 ; BPH (benign prostatic hyperplasia) N40.0 ; Tobacco abuse Z72.0 ; Generalized osteoarthritis M15.9 ; Insomnia G47.00 ; Anxiety F41.9 and GERD (gastroesophageal reflux disease) K21.9 [place] [id number] [place] [address] 25270- 2492 Apr, [facility] [id number] [place] [address] 23663- 4980 Mar, [place] [address] 71997- 4920 Feb, Major depression, recurrent 296.30 and Generalized anxiety disorder 300.02 [place] [address] 25430- 1677 Feb, [place] [address] 21670- 9292 Feb, [place] [id number] [place] [address] 00572- 9725 Jan, Chronic pain due to injury 338.21 ; Seizures 780.39 ; COPD ( chronic obstructive pulmonary disease) 496 ; BPH (benign prostatic hyperplasia) 600.00 ; Tobacco use disorder 305.1 ; Generalized osteoarthrosis, unspecified site 715.00 ; Anxiety 300.00 ; GERD (gastroesophageal reflux disease) 530.81 and Hypercholesteremia 272.0 [place] [address] [place] [address] 67635- 3840 Jan, [place] [id number] [place] [address] 76577- 4039 Jan, [place] [id number] [place] [address] 21396- 1232 Jan, [place] [id number] [place] [address] 14385- 9497 Jan, Seizures 780.39 ; COPD (chronic obstructive pulmonary disease) 496 ; Chronic pain due to injury 338.21 ; BPH (benign prostatic hyperplasia) 600.00 ; Tobacco use disorder 305.1 ; Generalized osteoarthrosis, unspecified site 715.00 ; Encounter for long-term (current) use of other medications V58.69 ; GERD (gastroesophageal reflux disease) 530.81 ; Hypercholesteremia 272.0 and Depression 311 [facility] [id number] [address]- 7[address] Jan, [facility] [id number] [address] 1381 Jan, Chronic pain due to injury 338.21 [place] [address] [place] [address] 09307- 9906 Dec, [facility] [id number] [address]- 1362 Dec, Seizures 780.39 ; COPD (chronic obstructive pulmonary disease) 496 ; Chronic pain due to injury 338.21 ; Environmental allergies V15.09 ; GERD (gastroesophageal reflux disease) 530.81 ; Essential hypertension 401.9 ; Psoriasis 696.1 ; PTSD (post-traumatic stress disorder) 309.81 and Depression (emotion) 311 IMMUNIZATIONS No Known Immunizations SOCIAL HISTORY Never Assessed REASON FOR VISIT [facility] Follow up- Was in ER for CHest pains, states they wanted to keep him but he refused- Oneil Valentine RN PLAN OF CARE Activity Details Follow Up Reg appt Reason: VITAL SIGNS Height 67.5 in 2017-10-19 Weight 176 lbs 2017-10-19 Temperature 98.0 degrees Fahrenheit 2017-10-19 Heart Rate 80 bpm 2017-10-19 Respiratory Rate 20 2017-10-19 BMI 27.16 kg/m2 2017-10-19 Blood pressure systolic 122 mmHg 2017-10-19 Blood pressure diastolic 78 mmHg 2017-10-19 MEDICATIONS Medication Instructions Dosage Frequency Start Date End Date Duration Status Flonase Allergy Relief 50 MCG/ACT Nasally 2 times a day 1-2 spray in each nostril 12h Active Advair Diskus 250-50 MCG/DOSE Inhalation Twice a day 1 puff 12h Feb, Active Albuterol Sulfate HFA cfc free 90 mcg/inh Inhalation every 4 hrs 2 puffs as needed 4h Active Trazodone HCl 100 mg Orally Once a day 1 tablet at bedtime 24h Oct, 30 day(s) Active Abilify 10 mg Orally Once in the morning 1 tablet Active Alprazolam 0.5 MG Orally 2 times a day prn 1 tablet Jul, 28 days Active Keppra 500 mg Orally 2 times a day 1 tablet 12h 30 Active Tylenol 325 MG Orally every 6 hrs 2 tablets as needed 6h Active Omeprazole 20 mg Orally 2 times a day 1 capsule 12h Active Albuterol Sulfate (2.5 MG/3ML) 0.083% Inhalation 4 times a day DX: J44.9 USE ONE VIAL PER NEBULIZER FOUR TIMES DAILY 13 Active Lipitor 20 mg Orally Once a day 1 tablet 24h Active Percocet 10-325 MG Orally 3 times a day 1 tablet as needed 8h Sep, 28 days Active Benadryl Allergy 25 MG Orally every 6 hrs 1 tablet as needed 6h Active Fish Oil 1000 MG Orally Once a day 3 capsule 24h Active Cymbalta 60 mg Orally Once a day 1 capsule 24h Active Nebulizer Unknown Nicoderm CQ 21 MG/24HR Transdermal Once a day 1 patch to skin 24h Sep, Oct, 30 day(s) Active RESULTS No Results PROCEDURES Procedure Date Ordered Result Body Site [facility] VISIT ESTABLISHED PATIENT October 19, 2017 INSTRUCTIONS MEDICATIONS ADMINISTERED No Known Medications [...] dioxide poisoning 2013 Hospitalization History [facility] [place]- CP and SOB 10/17/2017
--- OUTSIDE RECORDS SUMMARY | 2018-05-25 14:39 | XMS REPORT ---
Author Author YUMIKO MICHEL [facility] Address [address] [place] [address] Care Team Providers Care Supervisor [employer]rication Department Name Role Phone YUMIKO MICHEL Unavailable PROBLEMS Type Condition ICD9-CM Code JGQ40-BQ Code Onset Dates Condition Status SNOMED Code Problem Generalized osteoarthritis M15.9 Active 269199355 Problem LEROY (generalized anxiety disorder) F41.1 Active 03878465 Problem BPH (benign prostatic hyperplasia) N40.0 Active 088904029 Problem COPD (chronic obstructive pulmonary disease) J44.9 Active 92480023 Problem Tobacco abuse Z72.0 Active 11566334 Problem Chronic pain G89.29 Active 09945423 Problem Seizures R56.9 Active 14453319 Problem Post traumatic seizure disorder R56.1 Active 66171398 Problem Gastroesophageal reflux disease, esophagitis presence not specified K21.9 Active 940772362 Problem Irritable bladder N32.89 Active 532666248 Problem Major depressive disorder, recurrent episode F33.9 Active 720210832 Problem Environmental allergies Z91.09 Active 751582732 Problem Hypercholesterolemia E78.00 Active 17936766 ALLERGIES No Information ENCOUNTERS Encounter Location Date Diagnosis [facility] [id number] [place] [address] 15745- 5617 Jan, Generalized osteoarthritis M15.9 ; COPD (chronic obstructive pulmonary disease) J44.9 ; LEROY (generalized anxiety disorder) F41.1 and Gastroesophageal reflux disease, esophagitis presence not specified K21.9 [facility] [id number] [place] [address] 37584- 6869 Dec, Chronic pain G89.29 [facility] [id number] [place] [address] 11078- 4749 Dec, Anxiety F41.9 and COPD (chronic obstructive pulmonary disease) J44.9 [place] [id number] [place] [address] 85264- 2542 November, Chronic pain G89.29 [facility] [address] [place] [id number] [place] [address] 88031- 6933 November, Medicare annual wellness visit, initial Z00.00 ; COPD ( chronic obstructive pulmonary disease) J44.9 ; Major depressive disorder, recurrent episode F33.9 ; Gastroesophageal reflux disease, esophagitis presence not specified K21.9 ; Hypercholesterolemia E78.00 ; Seizures R56.9 ; Chronic pain G89.29 ; BPH (benign prostatic hyperplasia) N40.0 and Encounter for immunization Z23 [facility] [address] 11810- 2785 November, Chronic pain G89.29 [facility] [address] [place] [id number] [place] [address] 34393- 4203 Oct, [place] [facility] [address] 12009- 0544 Oct, Chronic pain G89.29 [facility] [address] [place] [id number] [place] [address] 45084- 5279 Sep, [place] [address] 68131- 3660 Sep, COPD (chronic obstructive pulmonary disease) J44.9 ; Tobacco abuse Z72.0 ; Major depressive disorder, recurrent episode F33.9 and Hypercholesterolemia E78.00 [facility] [address] [place] [id number] [place] [address] 87150- 1252 Sep, [facility] [address] [place] [id number] [place] [address] 69926- 8560 Sep, Hypercholesterolemia E78.00 [facility] [address] [place] [id number] [place] [address] 20964- 4203 13 Sep, 2017 Chronic pain G89.29 ; COPD (chronic obstructive pulmonary disease) J44.9 ; Major depressive disorder, recurrent episode F33.9 ; Post traumatic seizure disorder R56.1 and Hypercholesterolemia E78.00 [facility] [address] [place] [id number] [place] [address] 16456- 0259 Sep, Chronic pain G89.29 [place] [address] 82333- 2326 07 Aug, 2017 Major depressive disorder, recurrent episode F33.9 and Gastroesophageal reflux disease, esophagitis presence not specified K21.9 [place] [address] 14234- 9134 06 Aug, 2017 Chronic pain G89.29 [place] [facility] [address] 41015- 5284 Jul, Other chronic pain G89.29 and Anxiety F41.9 [place] [address] 56997- 2884 15 Jun, 2017 Chronic pain G89.29 and Seizures R56.9 [place] [facility] [address] 69851- 2459 Jun, Other chronic pain G89.29 and Anxiety F41.9 [place] [facility] [address] 07788- 5989 May, COPD (chronic obstructive pulmonary disease) J44.9 [facility] [facility] [address] [id number] [place] [address] 30152- 4887 May, Other chronic pain G89.29 and Anxiety F41.9 [place] [facility] [address] [place] [id number] [place] [address] 15043- 6606 Apr, Other chronic pain G89.29 and Anxiety F41.9 [facility] [facility] [address] [id number] [place] [address] 23543- 2665 Mar, Anxiety F41.9 and Other chronic pain G89.29 [facility] [id number] [place] [address] 41993- 1786 Feb, [place] [address] 66669- 8966 Feb, Anxiety F41.9 and Other chronic pain G89.29 [facility] [id number] [place] [address] 24620- 4909 Feb, [facility] [address] [place] [id number] [place] [address] 51916- 1427 Feb, COPD (chronic obstructive pulmonary disease) J44.9 ; Sleep apnea due to high altitude G47.31 and Oxygen desaturation during sleep G47.34 [place] [address] 26440- 1181 Jan, Other chronic pain G89.29 and Anxiety F41.9 [place] [address] 29733- 1682 Jan, [place] [address] 53795- 9229 Dec, Anxiety F41.9 and Other chronic pain G89.29 [place] [address] [id number] [place] [address] 72217- 2131 Dec, [place] [address] [place] [id number] [place] [address] 49286- 1122 Dec, [place] [address] [id number] [place] [address] 44829- 7526 Dec, Seizures R56.9 ; Chronic pain G89.29 [...] and COPD (chronic obstructive pulmonary disease) J44.9 [facility] [address] [id number] [place] [address] 51963- 1272 Dec, [facility] [address] [place] [id number] [place] [address] 98404- 6253 Dec, [place] [address] [address] 0287 Dec, Generalized osteoarthritis M15.9 and Anxiety F41.9 [place] [facility] [address] [place] [id number] [place] [address] 50035- 3204 November, Status post shoulder surgery Z98.890 [place] [facility] [address] [id number] [place] [address] 22662- 4108 November, Generalized osteoarthritis M15.9 and Anxiety F41.9 [place] [address] [id number] [place] [address] 33304- 5576 Oct, [facility] [address] [id number] [place] [address] 50562- 9854 Oct, Bilateral hearing loss, unspecified hearing loss [...] ; Anxiety F41.9 and Environmental allergies Z91.09 [place] [id number] [place] [address] 46575- 9430 Oct, Chronic pain G89.29 and LEROY (generalized anxiety disorder) F41.1 [place] [id number] [place] [address] 79214- 5559 Sep, [place] [address] [place] [id number] [place] [address] 15923- 3898 Sep, Tear of right rotator cuff, unspecified [...] disease) J44.9 and Hearing reduced, bilateral H91.93 [place] [address] [place] [id number] [place] [address] 63234- 7994 Sep, LEROY (generalized anxiety disorder) F41.[address] 19208- 7900 Aug, [address] 76155- 3342 Aug, Tear of right rotator cuff, unspecified tear extent M75.101 [place] [id number] [place] [address] 01186- 8600 Aug, Seizures R56.9 ; Chronic pain G89.29 ; Generalized osteoarthritis M15.9 ; COPD (chronic obstructive pulmonary disease) J44.9 ; LEROY (generalized anxiety disorder) F41.1 ; Gastroesophageal reflux disease, esophagitis presence not specified K21.9 ; Scabies B86 ; Hypercholesterolemia E78.00 ; Irritable bladder N32.89 and Edema, unspecified type R60.9 [place] [id number] [place] [address] 19371- 6172 Jul, Major depressive disorder, recurrent episode F33.9 [place] [id number] [place] [address] 13754- 0754 Jul, Seizures R56.9 ; Hypercholesterolemia E78.00 ; BPH (benign prostatic hyperplasia) N40.0 ; Major depressive disorder, recurrent episode F33.9 and Edema, unspecified type R60.[address] 24560- 3939 Jul, Chronic pain G89.29 and LEROY (generalized anxiety disorder) F41.[address] 86618- 1667 Jul, Seizures R56.9 ; COPD (chronic obstructive [...] shoulder M25.511 and Other chronic pain G89.29 [facility] [address] 04652- 4420 Jun, [place] [address] 74137- 8593 May, [place] [address] 63473- 4364 Apr, [place] [address] 51616- 9365 Apr, Seizures R56.9 ; COPD (chronic obstructive pulmonary disease ) J44.9 ; BPH (benign prostatic hyperplasia) N40.0 ; Chronic pain G89.29 ; Tobacco abuse Z72.0 ; LEROY (generalized anxiety disorder) F41.1 ; Environmental allergies Z91.09 ; Irritable bladder N32.89 and Hypercholesterolemia E78.00 [facility] [address] [place] [id number] [place] [address] 30412- 9635 Mar, [facility] [address] [place] [id number] [place] [address] 71134- 7927 Mar, [facility] [address] [place] [id number] [place] [address] 06185- 3181 Mar, [facility] [address] 07600- 7809 Mar, [facility] [address] [place] [id number] [place] [address] 18456- 9548 Feb, [facility] [address] 43506- 0354 Feb, Chronic pain G89.29 [facility] [address] [place] [id number] [place] [address] 21792- 7874 Feb, [facility] [address] [place] [id number] [place] [address] 345280- 0408 Jan, [facility] [address] [place] [id number] [place] [address] 97574- 9539 Dec, [facility] [address] [place] [id number] [place] [address] 04944- 4681 Dec, [place] [address] [place] [id number] [place] [address] 55733- 3022 Dec, Seizures R56.9 ; COPD (chronic obstructive pulmonary disease ) J44.9 ; Chronic pain G89.29 ; BPH (benign prostatic hyperplasia) N40.0 ; Generalized osteoarthritis M15.9 ; Hypercholesterolemia E78.0 ; Overactive bladder N32.81 ; Insomnia, unspecified type G47.00 ; Other depression F32.8 ; Environmental allergies Z91.09 and Gastroesophageal reflux disease, esophagitis presence not specified K21.9 [place] [address] [place] [id number] [place] [address] 44676- 0082 November, Chronic pain due to trauma G89.21 and Anxiety F41.9 [place] [address] [place] [id number] [place] [address] 20520- 8517 Oct, [facility] [address] [place] [id number] [place] [address] 73526- 3572 Sep, [facility] [id number] [place] [address] 54526- 2713 14 Sep, 2015 [facility] [address] [place] [id number] [place] [address] 18230- 3738 Sep, [facility] [id number] [place] [address] 75704- 8544 Sep, Seizures R56.9 ; Major depressive disorder, recurrent episode F33.9 and LEROY (generalized anxiety disorder) F41.1 [place] [address] [place] [id number] [place] [address] 83780- 4577 Aug, [address] 75763- 0667 Aug, COPD (chronic obstructive pulmonary disease) J44.9 ; Chronic pain G89.29 ; BPH (benign prostatic hyperplasia) N40.0 ; Tobacco abuse Z72.0 ; Generalized osteoarthritis M15.9 ; Seizures R56.9 ; Overactive bladder N32.81 ; Depression F32.9 and Anxiety F41.9 [place] [address] 13672- 5890 Jul, Essential (primary) hypertension I10 ; Pure hypercholesterolemia E78.0 ; Generalized osteoarthrosis, unspecified site 715.00 and Other longterm (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 Z79.899 [place] [address] 95806- 6446 Jul, [place] [address] [place] [id number] [place] [address] 58328- 5953 Jul, [place] [address] 99121- 3561 Jun, [place] [address] [place] [id number] [place] [address] 64717- 9640 May, [place] [address] [place] [id number] [place] [address] 54511- 0370 Apr, [place] [address] [place] [id number] [place] [address] 01557- 8941 Apr, Seizures R56.9 ; COPD (chronic obstructive pulmonary disease ) J44.9 ; Chronic pain G89.29 ; BPH (benign prostatic hyperplasia) N40.0 ; Tobacco abuse Z72.0 ; Generalized osteoarthritis M15.9 ; Insomnia G47.00 ; Anxiety F41.9 and GERD (gastroesophageal reflux disease) K21.9 [place] [address] [place] [id number] [place] [address] [id number]- 6612 Apr, [facility] [id number] [place] [address] 29023- 1315 Mar, [facility] [address] [place] [id number] [place] [address] 92505- 8603 Feb, Major depression, recurrent 296.30 and Generalized anxiety disorder 300.02 [place] [address] [place] [id number] [place] [address] 690445- 6110 Feb, [facility] [address] [place] [id number] [place] [address] 47909- 8091 Feb, [place] [address] [place] [id number] [place] [address] 776998- 7137 Jan, Chronic pain due to injury 338.21 ; Seizures 780.39 ; COPD ( chronic obstructive pulmonary disease) 496 ; BPH (benign prostatic hyperplasia) 600.00 ; Tobacco use disorder 305.1 ; Generalized osteoarthrosis, unspecified site 715.00 ; Anxiety 300.00 ; GERD (gastroesophageal reflux disease) 530.81 and Hypercholesteremia 272.0 [place] [address] [place] [id number] [place] [address] 10624- 6226 Jan, [place] [address] [place] [id number] [place] [address] 09555- 3083 Jan, [place] [id number] [place] [address] 41270- 1325 Jan, [place] [address] [place] [id number] [place] [address] 096574- 9599 Jan, Seizures 780.39 ; COPD (chronic obstructive pulmonary disease) 496 ; Chronic pain due to injury 338.21 ; BPH (benign prostatic hyperplasia) 600.00 ; Tobacco use disorder 305.1 ; Generalized osteoarthrosis, unspecified site 715.00 ; Encounter for long-term (current) use of other medications V58.69 ; GERD (gastroesophageal reflux disease) 530.81 ; Hypercholesteremia 272.0 and Depression 311 [place] [address] [place] [id number] [place] [address] 03769- 2546 Jan, [facility] [address] [facility] [id number] [place] [address]- 2546 Jan, Chronic pain due to injury 338.21 [facility] [address] [facility] [id number] [place] [address]- 2546 Dec, [facility] [address] [facility] [id number] [address]- 2546 Dec, Seizures 780.39 ; COPD (chronic obstructive pulmonary disease) 496 ; Chronic pain due to injury 338.21 ; Environmental allergies V15.09 ; GERD (gastroesophageal reflux disease) 530.81 ; Essential hypertension 401.9 ; Psoriasis 696.1 ; PTSD (post-traumatic stress disorder) 309.81 and Depression (emotion) 311 IMMUNIZATIONS No Known Immunizations SOCIAL HISTORY Never Assessed REASON FOR VISIT Oxycodone 11/03 PLAN OF CARE VITAL SIGNS MEDICATIONS Medication Instructions Dosage Frequency Start Date End Date Duration Status Percocet 10-325 MG Orally 3 times a day 1 tablet as needed 8h Oct, 28 days Active Alprazolam 0.5 MG Orally [...] dioxide poisoning 2013 Hospitalization History [facility] [place]- CP and SOB 10/17/2017
--- OUTSIDE RECORDS SUMMARY | 2018-05-25 14:39 | XMS REPORT ---
Author Author YUMIKO MICHEL [facility] Address [address] [place] [address] Care Team Providers Care Global Engineering Manager Name Role Phone YUMIKO MICHEL Unavailable PROBLEMS Type Condition ICD9-CM Code [id number] Code Onset Dates Condition Status SNOMED Code Problem Generalized osteoarthritis M15.9 Active 504489223 Problem LEROY (generalized anxiety disorder) F41.1 Active 02696183 Problem BPH (benign prostatic hyperplasia) N40.0 Active 524524988 Problem COPD (chronic obstructive pulmonary disease) J44.9 Active 51589023 Problem Tobacco abuse Z72.0 Active 54573139 Problem Chronic pain G89.29 Active 93193378 Problem Seizures R56.9 Active 87369357 Problem Post traumatic seizure disorder R56.1 Active 39789671 Problem Gastroesophageal reflux disease, esophagitis presence not specified K21.9 Active 722339409 Problem Irritable bladder N32.89 Active 278370106 Problem Major depressive disorder, recurrent episode F33.9 Active 753698141 Problem Environmental allergies Z91.09 Active 462473293 Problem Hypercholesterolemia E78.00 Active 77126265 ALLERGIES No Information ENCOUNTERS Encounter Location Date Diagnosis [facility] [address] [address] Feb, [facility] [address] [address] Jan, [facility] [address] [address] Jan, [facility] [id number] [place] [address] 80752- 7937 Jan, [facility] [address] [address] Jan, Chronic pain G89.29 [facility] [id number] [place] [address] 41304- 7790 Jan, Generalized osteoarthritis M15.9 ; COPD (chronic obstructive pulmonary disease) J44.9 ; LEROY (generalized anxiety disorder) F41.1 and Gastroesophageal reflux disease, esophagitis presence not specified K21.9 [facility] [id number] [place] [address] 68269- 3765 Dec, Chronic pain G89.[address] [address]- [address] Dec, Anxiety F41.9 and COPD (chronic obstructive pulmonary disease) J44.[address] [address]- 4056 November, Chronic pain G89.29 [place] [id number] [place] [address] 27324- 8521 November, Medicare annual wellness visit, initial Z00.00 ; COPD ( chronic obstructive pulmonary disease) J44.9 ; Major depressive disorder, recurrent episode F33.9 ; Gastroesophageal reflux disease, esophagitis presence not specified K21.9 ; Hypercholesterolemia E78.00 ; Seizures R56.9 ; Chronic pain G89.29 ; BPH (benign prostatic hyperplasia) N40.0 and Encounter for immunization Z23 [place] [id number] [place] [address] 39395- 6389 November, Chronic pain G89.29 [facility] [place] [id number] [place] [address] 14963- 7402 Oct, [facility] [id number] [place] [address] 80057- 8519 Oct, Chronic pain G89.29 [place] [id number] [place] [address] 66501- 8615 Sep, [facility] [id number] [place] [address] 64577- 8610 Sep, COPD (chronic obstructive pulmonary disease) J44.9 ; Tobacco abuse Z72.0 ; Major depressive disorder, recurrent episode F33.9 and Hypercholesterolemia E78.00 [facility] [id number] [place] [address] 50262- 5119 Sep, [facility] [address] 269[address]- 3980 Sep, Hypercholesterolemia E78.00 [facility] [id number] [place] [address] 43285- 8392 Sep, Chronic pain G89.29 ; COPD (chronic obstructive pulmonary disease) J44.9 ; Major depressive disorder, recurrent episode F33.9 ; Post traumatic seizure disorder R56.1 and Hypercholesterolemia E78.00 [facility] [address] [address]- 1955 Sep, Chronic pain G89.29 [facility] [address] 42063- 0608 Aug, Major depressive disorder, recurrent episode F33.9 and Gastroesophageal reflux disease, esophagitis presence not specified K21.9 [facility] [address] 33821- 6488 Aug, Chronic pain G89.29 [facility] [address] 05763- 1861 Jul, Other chronic pain G89.29 and Anxiety F41.9 [facility] [id number] [place] [address] 25335- 1164 Jun, Chronic pain G89.29 and Seizures R56.9 [facility] [id number] [place] [address] 69918- 9390 Jun, Other chronic pain G89.29 and Anxiety F41.9 [facility] [address] 21124- 7438 May, COPD (chronic obstructive pulmonary disease) J44.9 [facility] [id number] [place] [address] 82873- 2362 May, Other chronic pain G89.29 and Anxiety F41.9 [facility] [id number] [place] [address] 82817- 5401 Apr, Other chronic pain G89.29 and Anxiety F41.9 [facility] [id number] [place] [address] 35591- 6134 Mar, Anxiety F41.9 and Other chronic pain G89.29 [facility] [address] 53135- 5671 Feb, [facility] [address] 26073- 4712 Feb, Anxiety F41.9 and Other chronic pain G89.29 [facility] [id number] [place] [address] 65581- 3405 Feb, [facility] [address] 09158- 2511 Feb, COPD (chronic obstructive pulmonary disease) J44.9 ; Sleep apnea due to high altitude G47.31 and Oxygen desaturation during sleep G47.34 [facility] [id number] [place] [address] 38916- 9132 Jan, Other chronic pain G89.29 and Anxiety F41.9 [facility] [id number] [place] [address] 28473- 5094 Jan, [facility] [address] 44474- 1288 Dec, Anxiety F41.9 and Other chronic pain G89.29 [facility] [id number] [place] [address] 73708- 7037 Dec, [facility] [id number] [place] [address] 86510- 4862 Dec, [facility] [id number] [place] [address] 94631- 0578 Dec, Seizures R56.9 ; Chronic pain G89.29 [...] and COPD (chronic obstructive pulmonary disease) J44.9 [facility] [id number] [place] [address] 31140- 9222 Dec, [facility] [address] 67137- 3579 Dec, [facility] [address] [place] [phone]- [address]207 Dec, Generalized osteoarthritis M15.9 and Anxiety F41.9 [facility] [address] 69752- 3998 November, Status post shoulder surgery Z98.890 [facility] [id number] [place] [address] 38997- 0470 November, Generalized osteoarthritis M15.9 and Anxiety F41.9 [facility] [id number] [place] [address] 94322- 8387 Oct, [facility] [id number] [place] [address] 10155- 1298 Oct, Bilateral hearing loss, unspecified hearing loss [...] ; Anxiety F41.9 and Environmental allergies Z91.09 [facility] [id number] [place] [address] 63028- 7431 Oct, Chronic pain G89.29 and LEROY (generalized anxiety disorder) F41.1 [facility] [id number] [place] [address] 01951- 2934 Sep, [facility] [address] 14585- 8558 Sep, Tear of right rotator cuff, unspecified [...] disease) J44.9 and Hearing reduced, bilateral H91.93 [facility] [place] [id number] [place] [address] 52574- 2417 Sep, LEROY (generalized anxiety disorder) F41.1 [facility] [id number] [place] [address] 56062- 1626 Aug, [facility] [address] 18638- 3886 Aug, Tear of right rotator cuff, unspecified tear extent M75.101 [facility] [id number] [place] [address] 34531- 1558 Aug, Seizures R56.9 ; Chronic pain G89.29 ; Generalized osteoarthritis M15.9 ; COPD (chronic obstructive pulmonary disease) J44.9 ; LEROY (generalized anxiety disorder) F41.1 ; Gastroesophageal reflux disease, esophagitis presence not specified K21.9 ; Scabies B86 ; Hypercholesterolemia E78.00 ; Irritable bladder N32.89 and Edema, unspecified type R60.9 [place] [place] [id number] [place] [address] 21862- 3140 Jul, Major depressive disorder, recurrent episode F33.9 [facility] [address] [place] [address] 06358- 3211 Jul, Seizures R56.9 ; Hypercholesterolemia E78.00 ; BPH (benign prostatic hyperplasia) N40.0 ; Major depressive disorder, recurrent episode F33.9 and Edema, unspecified type R60.9 [facility] [id number] [place] [address] 16148- 1827 Jul, Chronic pain G89.29 and LEROY (generalized anxiety disorder) F41.1 [facility] [id number] [place] [address] 62565- 3343 Jul, Seizures R56.9 ; COPD (chronic obstructive [...] shoulder M25.511 and Other chronic pain G89.29 [facility] [id number] [place] [address] 26655- 1845 Jun, [facility] [id number] [place] [address] 93898- 2729 May, [facility] [id number] [place] [address] 95718- 7791 Apr, [facility] [address] 54905- 1412 Apr, Seizures R56.9 ; COPD (chronic obstructive pulmonary disease ) J44.9 ; BPH (benign prostatic hyperplasia) N40.0 ; Chronic pain G89.29 ; Tobacco abuse Z72.0 ; LEROY (generalized anxiety disorder) F41.1 ; Environmental allergies Z91.09 ; Irritable bladder N32.89 and Hypercholesterolemia E78.00 [facility] [address] [place] [address]- 2449 Mar, [facility] [id number] [place] [address] 54885- 0329 Mar, [facility] [id number] [place] [address] 18239- 1765 Mar, [facility] [id number] [place] [address] 64899- 4743 Mar, [facility] [id number] [place] [address] 54446- 1260 Feb, [facility] [id number] [place] [address] 21133- 4970 Feb, Chronic pain G89.29 [facility] [id number] [place] [address] 93375- 5830 Feb, [facility] [id number] [place] [address] 63644- 8887 Jan, [facility] [id number] [place] [address] 14664- 8265 Dec, [facility] [id number] [place] [address] 23182- 1787 Dec, [facility] [address] [place] [address] 01457- 2568 Dec, Seizures R56.9 ; COPD (chronic obstructive pulmonary disease ) J44.9 ; Chronic pain G89.29 ; BPH (benign prostatic hyperplasia) N40.0 ; Generalized osteoarthritis M15.9 ; Hypercholesterolemia E78.0 ; Overactive bladder N32.81 ; Insomnia, unspecified type G47.00 ; Other depression F32.8 ; Environmental allergies Z91.09 and Gastroesophageal reflux disease, esophagitis presence not specified K21.9 [facility] [address] [address]- 5336 November, Chronic pain due to trauma G89.21 and Anxiety F41.9 [facility] [id number] [address]- 2245 Oct, [facility] [id number] [place] [address] 05263- 9014 Sep, [facility] [id number] [place] [address] 45422- 0410 Sep, [facility] [id number] [place] [address] 50190- 2871 Sep, [facility] [id number] [place] [address] 15402- 2754 Sep, Seizures R56.9 ; Major depressive disorder, recurrent episode F33.9 and LEROY (generalized anxiety disorder) F41.1 [facility] [id number] [place] [address] 31864- 7023 Aug, [facility] [id number] [place] [address] 45526- 1487 02 Aug, 2015 COPD (chronic obstructive pulmonary disease) J44.9 ; Chronic pain G89.29 ; BPH (benign prostatic hyperplasia) N40.0 ; Tobacco abuse Z72.0 ; Generalized osteoarthritis M15.9 ; Seizures R56.9 ; Overactive bladder N32.81 ; Depression F32.9 and Anxiety F41.9 [facility] [address] [place] [address] 71460- 3299 Jul, Essential (primary) hypertension I10 ; Pure hypercholesterolemia E78.0 ; Generalized osteoarthrosis, unspecified site 715.00 and 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 counterman (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 Z79.899 [facility] [id number] [place] [address] 49642- 6470 Jul, [facility] [id number] [place] [address] 94086- 9628 Jul, [facility] [id number] [place] [address] 37212- 5687 Jun, [facility] [id number] [place] [address] 01419- 3069 May, [facility] [id number] [place] [address] 73770- 0405 Apr, [facility] [id number] [place] [address] 65027- 5895 Apr, Seizures R56.9 ; COPD (chronic obstructive pulmonary disease ) J44.9 ; Chronic pain G89.29 ; BPH (benign prostatic hyperplasia) N40.0 ; Tobacco abuse Z72.0 ; Generalized osteoarthritis M15.9 ; Insomnia G47.00 ; Anxiety F41.9 and GERD (gastroesophageal reflux disease) K21.9 [facility] [id number] [place] [address] 56538- 4934 Apr, [facility] [id number] [place] [address] 14356- 7260 Mar, [facility] [address] 81105- 8529 Feb, Major depression, recurrent 296.30 and Generalized anxiety disorder 300.02 [facility] [id number] [place] [address] 11063- 8551 Feb, [facility] [address] 70177- 7636 Feb, [facility] [id number] [place] [address] 42743- 5507 Jan, Chronic pain due to injury 338.21 ; Seizures 780.39 ; COPD ( chronic obstructive pulmonary disease) 496 ; BPH (benign prostatic hyperplasia) 600.00 ; Tobacco use disorder 305.1 ; Generalized osteoarthrosis, unspecified site 715.00 ; Anxiety 300.00 ; GERD (gastroesophageal reflux disease) 530.81 and Hypercholesteremia 272.0 [facility] [id number] [place] [address] 06438- 1688 Jan, [facility] [id number] [place] [address] 98639- 1222 Jan, [facility] [address] [address]- 2546 Jan, [facility] [address] [place] [address] 73392- 9096 Jan, Seizures 780.39 ; COPD (chronic obstructive pulmonary disease) 496 ; Chronic pain due to injury 338.21 ; BPH (benign prostatic hyperplasia) 600.00 ; Tobacco use disorder 305.1 ; Generalized osteoarthrosis, unspecified site 715.00 ; Encounter for long-term (current) use of other medications V58.69 ; GERD (gastroesophageal reflux disease) 530.81 ; Hypercholesteremia 272.0 and Depression [address] [place] [id number] [place] [address] 63669- 2803 Jan, [facility] [id number] [place] [address] 65592- 3656 Jan, Chronic pain due to injury 338.21 [facility] [id number] [place] [address] 81540- 9130 Dec, [facility] [id number] [place] [address] 99088- 7189 Dec, Seizures 780.39 ; COPD (chronic obstructive [...] Frequency Start Date End Date Duration Status Oxygen by inhalation route nocturnal 2 liters Oct, Active RESULTS No Results PROCEDURES No Known [...] dioxide poisoning 2013 Hospitalization History [facility]- CP and SOB 10/17/2017
--- OUTSIDE RECORDS SUMMARY | 2018-05-25 14:40 | XMS REPORT ---
Author Author YUMIKO MICHEL [facility] Address [address] [place] [address] Care Team Providers Care Meat Boner Name Role Phone YUMIKO MICHEL Unavailable PROBLEMS Type Condition ICD9-CM Code GDM49-HO Code Onset Dates Condition Status SNOMED Code Problem Generalized osteoarthritis M15.9 Active 883847658 Problem LEROY (generalized anxiety disorder) F41.1 Active 56487813 Problem BPH (benign prostatic hyperplasia) N40.0 Active 972655220 Problem COPD (chronic obstructive pulmonary disease) J44.9 Active 02946939 Problem Tobacco abuse Z72.0 Active 68745521 Problem Chronic pain G89.29 Active 48090733 Problem Seizures R56.9 Active 63970182 Problem Post traumatic seizure disorder R56.1 Active 93596458 Problem Gastroesophageal reflux disease, esophagitis presence not specified K21.9 Active 523134128 Problem Irritable bladder N32.89 Active 053559432 Problem Major depressive disorder, recurrent episode F33.9 Active 804735757 Problem Environmental allergies Z91.09 Active 705690439 Problem Hypercholesterolemia E78.00 Active 20309522 ALLERGIES No Information ENCOUNTERS Encounter Location Date Diagnosis [facility] [id number] [place] [address] 38761- 1343 Jan, Generalized osteoarthritis M15.9 ; COPD (chronic obstructive pulmonary disease) J44.9 ; LEROY (generalized anxiety disorder) F41.1 and Gastroesophageal reflux disease, esophagitis presence not specified K21.9 [facility] [id number] [place] [address] 91924- 9035 Dec, Chronic pain G89.29 [facility] [id number] [place] [address] 36143- 5625 Dec, Anxiety F41.9 and COPD (chronic obstructive pulmonary disease) J44.9 [place] [id number] [place] [address] 71862- 5077 November, Chronic pain G89.29 [facility] [address] [place] [id number] [place] [address] 65043- 8426 November, Medicare annual wellness visit, initial Z00.00 ; COPD ( chronic obstructive pulmonary disease) J44.9 ; Major depressive disorder, recurrent episode F33.9 ; Gastroesophageal reflux disease, esophagitis presence not specified K21.9 ; Hypercholesterolemia E78.00 ; Seizures R56.9 ; Chronic pain G89.29 ; BPH (benign prostatic hyperplasia) N40.0 and Encounter for immunization Z23 [facility] [facility] [address] 36976- 8492 November, Chronic pain G89.29 [facility] [address] [place] [id number] [place] [address] 65030- 3524 Oct, [facility] [address] 05419- 5342 Oct, Chronic pain G89.29 [facility] [address] [place] [id number] [place] [address] 79460- 7804 Sep, [facility] [address] 32508- 7384 Sep, COPD (chronic obstructive pulmonary disease) J44.9 ; Tobacco abuse Z72.0 ; Major depressive disorder, recurrent episode F33.9 and Hypercholesterolemia E78.00 [facility] [address] [place] [id number] [place] [address] 92827- 5442 Sep, [facility] [address] [place] [id number] [place] [address] 83217- 7454 Sep, Hypercholesterolemia E78.00 [facility] [address] [place] [id number] [place] [address] 40993- 0936 13 Sep, 2017 Chronic pain G89.29 ; COPD (chronic obstructive pulmonary disease) J44.9 ; Major depressive disorder, recurrent episode F33.9 ; Post traumatic seizure disorder R56.1 and Hypercholesterolemia E78.00 [facility] [address] [place] [id number] [place] [address] 39788- 7512 Sep, Chronic pain G89.29 [facility] [facility] [address] 49171- 3596 07 Aug, 2017 Major depressive disorder, recurrent episode F33.9 and Gastroesophageal reflux disease, esophagitis presence not specified K21.9 [facility] [address] 79228- 8870 06 Aug, 2017 Chronic pain G89.29 [facility] [address] 78601- 6913 Jul, Other chronic pain G89.29 and Anxiety F41.9 [facility] [facility] [address] 80656- 7978 15 Jun, 2017 Chronic pain G89.29 and Seizures R56.9 [facility] [facility] [address] 40139- 9901 Jun, Other chronic pain G89.29 and Anxiety F41.9 [facility] [address] 68774- 1264 May, COPD (chronic obstructive pulmonary disease) J44.9 [facility] [address] [place] [id number] [place] [address] 53444- 1835 May, Other chronic pain G89.29 and Anxiety F41.9 [facility] [address] [place] [id number] [place] [address] 76532- 8629 Apr, Other chronic pain G89.29 and Anxiety F41.9 [facility] [address] [place] [id number] [place] [address] 02108- 9932 Mar, Anxiety F41.9 and Other chronic pain G89.29 [facility] [address] [place] [id number] [place] [address] 07973- 0190 Feb, [place] [address] 93650- 3429 Feb, Anxiety F41.9 and Other chronic pain G89.29 [facility] [address] [place] [id number] [place] [address] 37277- 5494 Feb, [facility] [address] [place] [id number] [place] [address] 22034- 3465 Feb, COPD (chronic obstructive pulmonary disease) J44.9 ; Sleep apnea due to high altitude G47.31 and Oxygen desaturation during sleep G47.34 [place] [address] 13769- 2562 Jan, Other chronic pain G89.29 and Anxiety F41.9 [place] [address] 14381- 6927 Jan, [place] [address] 81996- 1525 Dec, Anxiety F41.9 and Other chronic pain G89.29 [facility] [address] [place] [id number] [place] [address] 00992- 7249 Dec, [facility] [address] [place] [id number] [place] [address] 30863- 4798 Dec, [facility] [address] [place] [id number] [place] [address] 46557- 3966 Dec, Seizures R56.9 ; Chronic pain G89.29 [...] and COPD (chronic obstructive pulmonary disease) J44.9 [facility] [address] [place] [id number] [place] [address] 31752- 0633 Dec, [facility] [address] [place] [id number] [place] [address] 88568- 5613 Dec, [facility] [address] [address] 5871 Dec, Generalized osteoarthritis M15.9 and Anxiety F41.9 [facility] [address] [place] [id number] [place] [address] 79988- 4857 November, Status post shoulder surgery Z98.890 [facility] [address] [place] [id number] [place] [address] 92299- 5303 November, Generalized osteoarthritis M15.9 and Anxiety F41.9 [facility] [address] [place] [id number] [place] [address] 31083- 1970 Oct, [facility] [address] [place] [id number] [place] [address] 98129- 2909 Oct, Bilateral hearing loss, unspecified hearing loss [...] ; Anxiety F41.9 and Environmental allergies Z91.09 [facility] [place] [id number] [place] [address] 16837- 3958 Oct, Chronic pain G89.29 and LEROY (generalized anxiety disorder) F41.1 [place] [id number] [place] [address] 66913- 4089 Sep, [place] [address] [place] [id number] [place] [address] 85212- 7169 Sep, Tear of right rotator cuff, unspecified [...] disease) J44.9 and Hearing reduced, bilateral H91.93 [place] [address] [place] [id number] [place] [address] 76374- 1341 Sep, LEROY (generalized anxiety disorder) F41.[address] 65018- 8979 Aug, [address] 77931- 9723 Aug, Tear of right rotator cuff, unspecified tear extent M75.101 [place] [id number] [place] [address] 98901- 6805 Aug, Seizures R56.9 ; Chronic pain G89.29 ; Generalized osteoarthritis M15.9 ; COPD (chronic obstructive pulmonary disease) J44.9 ; LEROY (generalized anxiety disorder) F41.1 ; Gastroesophageal reflux disease, esophagitis presence not specified K21.9 ; Scabies B86 ; Hypercholesterolemia E78.00 ; Irritable bladder N32.89 and Edema, unspecified type R60.9 [place] [id number] [place] [address] 76519- 6858 Jul, Major depressive disorder, recurrent episode F33.9 [place] [id number] [place] [address] 92659- 8860 Jul, Seizures R56.9 ; Hypercholesterolemia E78.00 ; BPH (benign prostatic hyperplasia) N40.0 ; Major depressive disorder, recurrent episode F33.9 and Edema, unspecified type R60.[address] 16957- 9875 Jul, Chronic pain G89.29 and LEROY (generalized anxiety disorder) F41.[address] 76337- 8720 Jul, Seizures R56.9 ; COPD (chronic obstructive [...] shoulder M25.511 and Other chronic pain G89.29 [facility] [address] 17164- 9889 Jun, [place] [address] 20698- 9238 May, [place] [address] 28127- 0248 Apr, [place] [address] 04603- 8047 Apr, Seizures R56.9 ; COPD (chronic obstructive pulmonary disease ) J44.9 ; BPH (benign prostatic hyperplasia) N40.0 ; Chronic pain G89.29 ; Tobacco abuse Z72.0 ; LEROY (generalized anxiety disorder) F41.1 ; Environmental allergies Z91.09 ; Irritable bladder N32.89 and Hypercholesterolemia E78.00 [facility] [address] [place] [id number] [place] [address] 94267- 5711 Mar, [facility] [address] [place] [id number] [place] [address] 62545- 9931 Mar, [facility] [address] [place] [id number] [place] [address] 52228- 9341 Mar, [facility] [address] 62002- 6710 Mar, [facility] [address] [place] [id number] [place] [address] 38385- 8216 Feb, [facility] [address] 57588- 5495 Feb, Chronic pain G89.29 [facility] [address] [place] [id number] [place] [address] 46989- 4502 Feb, [facility] [address] [place] [id number] [place] [address] 709875- 0064 Jan, [facility] [address] [place] [id number] [place] [address] 77461- 0082 Dec, [facility] [address] [place] [id number] [place] [address] 77370- 5656 Dec, [place] [address] [place] [id number] [place] [address] 33609- 6674 Dec, Seizures R56.9 ; COPD (chronic obstructive pulmonary disease ) J44.9 ; Chronic pain G89.29 ; BPH (benign prostatic hyperplasia) N40.0 ; Generalized osteoarthritis M15.9 ; Hypercholesterolemia E78.0 ; Overactive bladder N32.81 ; Insomnia, unspecified type G47.00 ; Other depression F32.8 ; Environmental allergies Z91.09 and Gastroesophageal reflux disease, esophagitis presence not specified K21.9 [place] [address] [place] [id number] [place] [address] 39754- 2950 November, Chronic pain due to trauma G89.21 and Anxiety F41.9 [place] [address] [place] [id number] [place] [address] 30819- 1283 Oct, [facility] [address] [place] [id number] [place] [address] 07590- 9575 Sep, [facility] [id number] [place] [address] 90213- 8884 14 Sep, 2015 [facility] [address] [place] [id number] [place] [address] 21357- 0588 Sep, [facility] [id number] [place] [address] 34600- 1880 Sep, Seizures R56.9 ; Major depressive disorder, recurrent episode F33.9 and LEROY (generalized anxiety disorder) F41.1 [facility] [address] [place] [id number] [place] [address] 88358- 5185 Aug, [address] 70389- 3266 Aug, COPD (chronic obstructive pulmonary disease) J44.9 ; Chronic pain G89.29 ; BPH (benign prostatic hyperplasia) N40.0 ; Tobacco abuse Z72.0 ; Generalized osteoarthritis M15.9 ; Seizures R56.9 ; Overactive bladder N32.81 ; Depression F32.9 and Anxiety F41.9 [place] [address] 50290- 3347 Jul, Essential (primary) hypertension I10 ; Pure hypercholesterolemia E78.0 ; Generalized osteoarthrosis, unspecified site 715.00 and Other senior care (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 Z79.899 [place] [address] 48330- 0681 Jul, [place] [address] [place] [id number] [place] [address] 93127- 8832 Jul, [place] [address] 41498- 4523 Jun, [facility] [address] [place] [id number] [place] [address] 69695- 8866 May, [facility] [place] [address] [place] [id number] [place] [address] 81479- 8255 Apr, [facility] [address] [place] [id number] [place] [address] 64121- 9933 Apr, Seizures R56.9 ; COPD (chronic obstructive pulmonary disease ) J44.9 ; Chronic pain G89.29 ; BPH (benign prostatic hyperplasia) N40.0 ; Tobacco abuse Z72.0 ; Generalized osteoarthritis M15.9 ; Insomnia G47.00 ; Anxiety F41.9 and GERD (gastroesophageal reflux disease) K21.9 [facility] [place] [address] [place] [id number] [place] [address] [id number]- 6039 Apr, [facility] [id number] [place] [address] 63525- 2847 Mar, [facility] [address] [place] [id number] [place] [address] 44011- 4881 Feb, Major depression, recurrent 296.30 and Generalized anxiety disorder 300.02 [place] [address] [place] [id number] [place] [address] 976686- 2026 Feb, [facility] [address] [place] [id number] [place] [address] 40138- 8017 Feb, [place] [address] [place] [id number] [place] [address] 219951- 1977 Jan, Chronic pain due to injury 338.21 ; Seizures 780.39 ; COPD ( chronic obstructive pulmonary disease) 496 ; BPH (benign prostatic hyperplasia) 600.00 ; Tobacco use disorder 305.1 ; Generalized osteoarthrosis, unspecified site 715.00 ; Anxiety 300.00 ; GERD (gastroesophageal reflux disease) 530.81 and Hypercholesteremia 272.0 [place] [address] [place] [id number] [place] [address] 24447- 6357 Jan, [place] [address] [place] [id number] [place] [address] 36532- 9354 Jan, [place] [id number] [place] [address] 00927- 4240 Jan, [place] [address] [place] [id number] [place] [address] 156727- 1381 Jan, Seizures 780.39 ; COPD (chronic obstructive pulmonary disease) 496 ; Chronic pain due to injury 338.21 ; BPH (benign prostatic hyperplasia) 600.00 ; Tobacco use disorder 305.1 ; Generalized osteoarthrosis, unspecified site 715.00 ; Encounter for long-term (current) use of other medications V58.69 ; GERD (gastroesophageal reflux disease) 530.81 ; Hypercholesteremia 272.0 and Depression [address] [place] [address] [place] [id number] [place] [address] 46081- 2546 Jan, [facility] [address] [facility] [id number] [place] [address]- 2546 Jan, Chronic pain due to injury 338.21 [facility] [address] [facility] [id number] [place] [address]- 2546 Dec, [facility] [address] [facility] [id number] [address]- 2546 Dec, Seizures 780.39 ; COPD (chronic [...] call PLAN OF CARE VITAL SIGNS MEDICATIONS Medication Instructions Dosage Frequency Start Date End Date Duration Status Fluticasone Propionate 50 MCG/ACT Nasally 2 times a day 2 sprays in each nostril 12h Active RESULTS No Results PROCEDURES No Known [...] dioxide poisoning 2013 Hospitalization History [facility]- CP and SOB 10/17/2017
--- OUTSIDE RECORDS SUMMARY | 2018-05-25 14:40 | XMS REPORT ---
Author Author YUMIKO MICHEL [facility] Address [address] [place] [address] Care Team Providers Care Delivery Room Supervisor Name Role Phone YUMIKO MICHEL Unavailable PROBLEMS Type Condition ICD9-CM Code VKN26-ID Code Onset Dates Condition Status SNOMED Code Problem Generalized osteoarthritis M15.9 Active 253581542 Problem LEROY (generalized anxiety disorder) F41.1 Active 92592098 Problem BPH (benign prostatic hyperplasia) N40.0 Active 758143679 Problem COPD (chronic obstructive pulmonary disease) J44.9 Active 31818266 Problem Tobacco abuse Z72.0 Active 23792846 Problem Chronic pain G89.29 Active 14506712 Problem Seizures R56.9 Active 45780066 Problem Post traumatic seizure disorder R56.1 Active 53262569 Problem Gastroesophageal reflux disease, esophagitis presence not specified K21.9 Active 595414263 Problem Irritable bladder N32.89 Active 580778679 Problem Major depressive disorder, recurrent episode F33.9 Active 495197490 Problem Environmental allergies Z91.09 Active 540449637 Problem Hypercholesterolemia E78.00 Active 09221465 ALLERGIES No Information ENCOUNTERS Encounter Location Date Diagnosis [facility] [id number] [place] [address] 53952- 3655 Jan, Generalized osteoarthritis M15.9 ; COPD (chronic obstructive pulmonary disease) J44.9 ; LEROY (generalized anxiety disorder) F41.1 and Gastroesophageal reflux disease, esophagitis presence not specified K21.9 [facility] [id number] [place] [address] 54117- 2115 Dec, Chronic pain G89.29 [facility] [address] [place] [address] 26649- 0635 Dec, Anxiety F41.9 and COPD (chronic obstructive pulmonary disease) J44.9 [facility] [address] [place] [id number] [place] [address] 43995- 0922 November, Chronic pain G89.29 [facility] [address] [place] [id number] [place] [address] 47923- 1066 November, Medicare annual wellness visit, initial Z00.00 ; COPD ( chronic obstructive pulmonary disease) J44.9 ; Major depressive disorder, recurrent episode F33.9 ; Gastroesophageal reflux disease, esophagitis presence not specified K21.9 ; Hypercholesterolemia E78.00 ; Seizures R56.9 ; Chronic pain G89.29 ; BPH (benign prostatic hyperplasia) N40.0 and Encounter for immunization Z23 [place] [address] 25297- 9231 November, Chronic pain G89.29 [place] [address] [place] [id number] [place] [address] 67661- 2585 Oct, [place] [address] 91997- 3910 Oct, Chronic pain G89.29 [place] [address] [place] [id number] [place] [address] 19673- 7229 Sep, [place] [address] 95902- 3752 Sep, COPD (chronic obstructive pulmonary disease) J44.9 ; Tobacco abuse Z72.0 ; Major depressive disorder, recurrent episode F33.9 and Hypercholesterolemia E78.00 [place] [address] [place] [id number] [place] [address] 53607- 2856 Sep, [facility] [address] [place] [id number] [place] [address] 08862- 2407 Sep, Hypercholesterolemia E78.00 [facility] [address] [place] [id number] [place] [address] 57893- 8795 13 Sep, 2017 Chronic pain G89.29 ; COPD (chronic obstructive pulmonary disease) J44.9 ; Major depressive disorder, recurrent episode F33.9 ; Post traumatic seizure disorder R56.1 and Hypercholesterolemia E78.00 [facility] [address] [place] [id number] [place] [address] 62020- 8904 Sep, Chronic pain G89.29 [place] [address] 13709- 8646 07 Aug, 2017 Major depressive disorder, recurrent episode F33.9 and Gastroesophageal reflux disease, esophagitis presence not specified K21.9 [place] [address] 49493- 2522 06 Aug, 2017 Chronic pain G89.29 [place] [address] 46118- 4444 Jul, Other chronic pain G89.29 and Anxiety F41.9 [place] [address] 71463- 2481 15 Jun, 2017 Chronic pain G89.29 and Seizures R56.9 [place] [address] 27104- 6523 Jun, Other chronic pain G89.29 and Anxiety F41.9 [place] [address] 87004- 4226 May, COPD (chronic obstructive pulmonary disease) J44.9 [place] [address] [place] [id number] [place] [address] 90257- 0218 May, Other chronic pain G89.29 and Anxiety F41.9 [place] [address] [place] [id number] [place] [address] 43590- 0778 Apr, Other chronic pain G89.29 and Anxiety F41.9 [place] [address] [place] [id number] [place] [address] 49766- 4914 Mar, Anxiety F41.9 and Other chronic pain G89.29 [place] [address] [place] [id number] [place] [address] 88649- 4633 Feb, [place] [address] 79031- 1172 Feb, Anxiety F41.9 and Other chronic pain G89.29 [facility] [address] [place] [id number] [place] [address] 23514- 9205 Feb, [facility] [address] [place] [id number] [place] [address] 25710- 7186 Feb, COPD (chronic obstructive pulmonary disease) J44.9 ; Sleep apnea due to high altitude G47.31 and Oxygen desaturation during sleep G47.34 [place] [address] 56147- 7003 Jan, Other chronic pain G89.29 and Anxiety F41.9 [place] [address] 12861- 3007 Jan, [place] [address] 64686- 0412 Dec, Anxiety F41.9 and Other chronic pain G89.29 [place] [address] [place] [id number] [place] [address] 19806- 5856 Dec, [place] [address] [place] [id number] [place] [address] 58670- 0978 Dec, [place] [address] [place] [id number] [place] [address] 91166- 5900 Dec, Seizures R56.9 ; Chronic pain G89.29 [...] and COPD (chronic obstructive pulmonary disease) J44.9 [facility] [address] [place] [id number] [place] [address] 70059- 0499 Dec, [facility] [address] [place] [id number] [place] [address] 44947- 8447 Dec, [place] [address] [address] 4911 Dec, Generalized osteoarthritis M15.9 and Anxiety F41.9 [place] [address] [place] [id number] [place] [address] 30195- 4482 November, Status post shoulder surgery Z98.890 [place] [address] [place] [id number] [place] [address] 04839- 7200 November, Generalized osteoarthritis M15.9 and Anxiety F41.9 [place] [address] [place] [id number] [place] [address] 48907- 1507 Oct, [place] [address] [place] [id number] [place] [address] 52045- 8870 Oct, Bilateral hearing loss, unspecified hearing loss [...] ; Anxiety F41.9 and Environmental allergies Z91.09 [place] [address] [place] [address] 50641- 5518 Oct, Chronic pain G89.29 and LEROY (generalized anxiety disorder) F41.1 [place] [address] [place] [address] 95680- 7859 Sep, [place] [address] [place] [id number] [place] [address] 78788- 6294 Sep, Tear of right rotator cuff, unspecified [...] disease) J44.9 and Hearing reduced, bilateral H91.93 [place] [address] [place] [id number] [place] [address] 49994- 2529 Sep, LEROY (generalized anxiety disorder) F41.[address] 34060- 2236 Aug, [address] 54767- 8453 Aug, Tear of right rotator cuff, unspecified tear extent M75.101 [place] [id number] [place] [address] 30672- 8224 Aug, Seizures R56.9 ; Chronic pain G89.29 ; Generalized osteoarthritis M15.9 ; COPD (chronic obstructive pulmonary disease) J44.9 ; LEROY (generalized anxiety disorder) F41.1 ; Gastroesophageal reflux disease, esophagitis presence not specified K21.9 ; Scabies B86 ; Hypercholesterolemia E78.00 ; Irritable bladder N32.89 and Edema, unspecified type R60.9 [place] [id number] [place] [address] 68115- 1502 Jul, Major depressive disorder, recurrent episode F33.9 [place] [id number] [place] [address] 25049- 4939 Jul, Seizures R56.9 ; Hypercholesterolemia E78.00 ; BPH (benign prostatic hyperplasia) N40.0 ; Major depressive disorder, recurrent episode F33.9 and Edema, unspecified type R60.[address] 80916- 7574 Jul, Chronic pain G89.29 and LEROY (generalized anxiety disorder) F41.[address] 24534- 3819 Jul, Seizures R56.9 ; COPD (chronic obstructive [...] shoulder M25.511 and Other chronic pain G89.29 [facility] [address] 04879- 1517 Jun, [place] [address] 42958- 9071 May, [place] [address] 25444- 8028 Apr, [place] [address] 08150- 0774 Apr, Seizures R56.9 ; COPD (chronic obstructive pulmonary disease ) J44.9 ; BPH (benign prostatic hyperplasia) N40.0 ; Chronic pain G89.29 ; Tobacco abuse Z72.0 ; LEROY (generalized anxiety disorder) F41.1 ; Environmental allergies Z91.09 ; Irritable bladder N32.89 and Hypercholesterolemia E78.00 [facility] [address] [place] [id number] [place] [address] 34767- 3047 Mar, [facility] [address] [place] [id number] [place] [address] 09033- 6218 Mar, [facility] [address] [place] [id number] [place] [address] 11053- 9583 Mar, [facility] [address] 28770- 4077 Mar, [facility] [address] [place] [id number] [place] [address] 81259- 8062 Feb, [facility] [address] 93777- 8072 Feb, Chronic pain G89.29 [facility] [address] [place] [id number] [place] [address] 37548- 1770 Feb, [facility] [address] [place] [id number] [place] [address] 702330- 6057 Jan, [facility] [address] [place] [id number] [place] [address] 31440- 9563 Dec, [facility] [address] [place] [id number] [place] [address] 10008- 2801 Dec, [place] [address] [place] [id number] [place] [address] 09102- 7718 Dec, Seizures R56.9 ; COPD (chronic obstructive pulmonary disease ) J44.9 ; Chronic pain G89.29 ; BPH (benign prostatic hyperplasia) N40.0 ; Generalized osteoarthritis M15.9 ; Hypercholesterolemia E78.0 ; Overactive bladder N32.81 ; Insomnia, unspecified type G47.00 ; Other depression F32.8 ; Environmental allergies Z91.09 and Gastroesophageal reflux disease, esophagitis presence not specified K21.9 [place] [address] [place] [id number] [place] [address] 63173- 5962 November, Chronic pain due to trauma G89.21 and Anxiety F41.9 [place] [address] [place] [id number] [place] [address] 14799- 8956 Oct, [facility] [address] [place] [id number] [place] [address] 91757- 8869 Sep, [facility] [address] [place] [address] 54019- 0109 14 Sep, 2015 [facility] [address] [place] [id number] [place] [address] 09380- 3522 Sep, [facility] [address] [place] [address] 60711- 6333 Sep, Seizures R56.9 ; Major depressive disorder, recurrent episode F33.9 and LEROY (generalized anxiety disorder) F41.1 [place] [address] [place] [id number] [place] [address] 59878- 4595 Aug, [address] 22951- 5977 Aug, COPD (chronic obstructive pulmonary disease) J44.9 ; Chronic pain G89.29 ; BPH (benign prostatic hyperplasia) N40.0 ; Tobacco abuse Z72.0 ; Generalized osteoarthritis M15.9 ; Seizures R56.9 ; Overactive bladder N32.81 ; Depression F32.9 and Anxiety F41.9 [place] [address] 71947- 9172 Jul, Essential (primary) hypertension I10 ; Pure hypercholesterolemia E78.0 ; Generalized osteoarthrosis, unspecified site 715.00 and Other group home (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 Z79.899 [place] [address] 95054- 9494 Jul, [place] [address] [place] [id number] [place] [address] 43181- 5298 Jul, [place] [address] 49777- 3994 Jun, [place] [address] [place] [id number] [place] [address] 05685- 0052 May, [place] [address] [place] [id number] [place] [address] 49201- 7603 Apr, [place] [address] [place] [id number] [place] [address] 63298- 8434 Apr, Seizures R56.9 ; COPD (chronic obstructive pulmonary disease ) J44.9 ; Chronic pain G89.29 ; BPH (benign prostatic hyperplasia) N40.0 ; Tobacco abuse Z72.0 ; Generalized osteoarthritis M15.9 ; Insomnia G47.00 ; Anxiety F41.9 and GERD (gastroesophageal reflux disease) K21.9 [place] [address] [place] [id number] [place] [address] 94247653- 8215 Apr, [facility] [address] [place] [address] 10514- 4262 Mar, [facility] [address] [place] [id number] [place] [address] 47938- 3983 Feb, Major depression, recurrent 296.30 and Generalized anxiety disorder 300.02 [place] [address] [place] [id number] [place] [address] 983681- 1724 Feb, [facility] [address] [place] [id number] [place] [address] 62792- 6134 Feb, [place] [address] [place] [id number] [place] [address] 579294- 3596 Jan, Chronic pain due to injury 338.21 ; Seizures 780.39 ; COPD ( chronic obstructive pulmonary disease) 496 ; BPH (benign prostatic hyperplasia) 600.00 ; Tobacco use disorder 305.1 ; Generalized osteoarthrosis, unspecified site 715.00 ; Anxiety 300.00 ; GERD (gastroesophageal reflux disease) 530.81 and Hypercholesteremia 272.0 [place] [address] [place] [id number] [place] [address] 78311- 2094 Jan, [place] [address] [place] [id number] [place] [address] 87559- 7119 Jan, [place] [address] [place] [address] 07826- 6438 Jan, [place] [address] [place] [id number] [place] [address] 291142- 2126 Jan, Seizures 780.39 ; COPD (chronic obstructive pulmonary disease) 496 ; Chronic pain due to injury 338.21 ; BPH (benign prostatic hyperplasia) 600.00 ; Tobacco use disorder 305.1 ; Generalized osteoarthrosis, unspecified site 715.00 ; Encounter for long-term (current) use of other medications V58.69 ; GERD (gastroesophageal reflux disease) 530.81 ; Hypercholesteremia 272.0 and Depression [address] [place] [address] [place] [id number] [place] [address] 70827- 2546 Jan, [facility] [address] [facility] [id number] [place] [address]- 2546 Jan, Chronic pain due to injury 338.21 [facility] [address] [facility] [id number] [address]- 2546 Dec, [facility] [address] [facility] [id number] [address] 2546 Dec, Seizures 780.39 ; COPD (chronic obstructive pulmonary disease) 496 ; Chronic pain due to injury 338.21 ; Environmental allergies V15.09 ; GERD (gastroesophageal reflux disease) 530.81 ; Essential hypertension 401.9 ; Psoriasis 696.1 ; PTSD (post-traumatic stress disorder) 309.81 and Depression (emotion) 311 IMMUNIZATIONS No Known Immunizations SOCIAL HISTORY Never Assessed REASON FOR VISIT Phone Call PLAN OF CARE VITAL SIGNS MEDICATIONS Unknown [...] dioxide poisoning 2013 Hospitalization History [facility] [place]- CP and SOB 10/17/2017
--- OUTSIDE RECORDS SUMMARY | 2018-05-25 14:41 | XMS REPORT ---
Author Author YUMIKO MICHEL [facility] Address [address] [place] [address] Care Team Providers Care Triage Specialist Name Role Phone YUMIKO MICHEL Unavailable PROBLEMS Type Condition ICD9-CM Code RFQ42-JM Code Onset Dates Condition Status SNOMED Code Problem Generalized osteoarthritis M15.9 Active 187366758 Problem LEROY (generalized anxiety disorder) F41.1 Active 41651326 Problem BPH (benign prostatic hyperplasia) N40.0 Active 536078224 Problem COPD (chronic obstructive pulmonary disease) J44.9 Active 43506059 Problem Tobacco abuse Z72.0 Active 94665733 Problem Chronic pain G89.29 Active 85164424 Problem Seizures R56.9 Active 47052013 Problem Post traumatic seizure disorder R56.1 Active 17648882 Problem Gastroesophageal reflux disease, esophagitis presence not specified K21.9 Active 174176001 Problem Irritable bladder N32.89 Active 293477513 Problem Major depressive disorder, recurrent episode F33.9 Active 436851396 Problem Environmental allergies Z91.09 Active 382187972 Problem Hypercholesterolemia E78.00 Active 12272490 ALLERGIES Substance Reaction Event Type Date Status Ultracet headache, "blindness" Drug Allergy Sep, Active Prozac "stops my heart" Drug Allergy Sep, Active Codeine Sulfate agitation Drug Allergy Sep, Active ENCOUNTERS Encounter Location Date Diagnosis [facility] [id number], [place] [address] Jan, Generalized osteoarthritis M15.9 ; COPD (chronic obstructive pulmonary disease) J44.9 ; LEROY (generalized anxiety disorder) F41.1 and Gastroesophageal reflux disease, esophagitis presence not specified K21.9 [facility] [id number] [address] Dec, Chronic pain G89.29 [facility] [id number] [place] [address] 44728- 0400 Dec, Anxiety F41.9 and COPD (chronic obstructive pulmonary disease) J44.9 [address] [id number] [place] [address] 23121- 9349 November, Chronic pain G89.29 [address] [id number] [place] [address] 96084- 0737 November, Medicare annual wellness visit, initial Z00.00 ; COPD ( chronic obstructive pulmonary disease) J44.9 ; Major depressive disorder, recurrent episode F33.9 ; Gastroesophageal reflux disease, esophagitis presence not specified K21.9 ; Hypercholesterolemia E78.00 ; Seizures R56.9 ; Chronic pain G89.29 ; BPH (benign prostatic hyperplasia) N40.0 and Encounter for immunization Z23 [id number] [place] [address] 25556- 5472 November, Chronic pain G89.29 [place] [id number] [place] [address] 29620- 1229 Oct, [place] [id number] [place] [address] 31283- 7086 Oct, Chronic pain G89.29 [place] [id number] [place] [address] 26155- 2361 Sep, [place] [id number] [place] [address] 23900- 9476 Sep, COPD (chronic obstructive pulmonary disease) J44.9 ; Tobacco abuse Z72.0 ; Major depressive disorder, recurrent episode F33.9 and Hypercholesterolemia E78.00 [place] [id number], [place] [address] Sep, [place] [id number] [place] [address] 96548- 1241 Sep, Hypercholesterolemia E78.00 [facility] [address], [place] [address] Sep, Chronic pain G89.29 ; COPD (chronic obstructive pulmonary disease) J44.9 ; Major depressive disorder, recurrent episode F33.9 ; Post traumatic seizure disorder R56.1 and Hypercholesterolemia E78.00 [address] [id number] [place] [address] 75157- 2529 Sep, Chronic pain G89.29 [place] [id number] [place] [address] 33084- 7792 Aug, Major depressive disorder, recurrent episode F33.9 and Gastroesophageal reflux disease, esophagitis presence not specified K21.9 [address] [id number] [place] [address] 75132- 7506 06 Aug, 2017 Chronic pain G89.29 [place] [address] 22957- 2981 Jul, Other chronic pain G89.29 and Anxiety F41.9 [place] [address] 81514- 1105 15 Jun, 2017 Chronic pain G89.29 and Seizures R56.9 [place] [id number] [place] [address] 18782- 3635 13 Jun, 2017 Other chronic pain G89.29 and Anxiety F41.9 [place] [id number] [place] [address] 58647- 7870 May, COPD (chronic obstructive pulmonary disease) J44.9 [place] [id number] [place] [address] 23504- 8634 16 May, 2017 Other chronic pain G89.29 and Anxiety F41.9 [place] [id number] [place] [address] 51538- 1558 Apr, Other chronic pain G89.29 and Anxiety F41.9 [place] [id number] [place] [address] 31341- 7281 Mar, Anxiety F41.9 and Other chronic pain G89.29 [place] [id number] [place] [address] 14109- 7177 Feb, [facility] [id number] [place] [address] 32615- 3449 Feb, Anxiety F41.9 and Other chronic pain G89.29 [facility] [id number] [place] [address] 33573- 9850 Feb, [facility] [id number] [place] [address] 71462- 4866 Feb, COPD (chronic obstructive pulmonary disease) J44.9 ; Sleep apnea due to high altitude G47.31 and Oxygen desaturation during sleep G47.34 [place] [id number] [place] [address] 60677- 6670 Jan, Other chronic pain G89.29 and Anxiety F41.9 [place] [id number] [place] [address] 54993- 9575 Jan, [place] [id number] [place] [address] 74064- 3174 Dec, Anxiety F41.9 and Other chronic pain G89.29 [place] [id number] [place] [address] 26190- 9109 Dec, [facility] [id number] [place] [address] 54555- 0081 Dec, [place] [address] [place] [address] 41063- 5443 Dec, Seizures R56.9 ; Chronic pain G89.29 [...] and COPD (chronic obstructive pulmonary disease) J44.9 [facility] [id number] [place] [address] 01142- 0641 Dec, [place] [id number] [place] [address] 16930- 8107 Dec, [place] [address] 39868- 2294 Dec, Generalized osteoarthritis M15.9 and Anxiety F41.9 [place] [address] 27255- 0194 November, Status post shoulder surgery Z98.890 [place] [address] 93817- 0902 November, Generalized osteoarthritis M15.9 and Anxiety F41.9 [place] [address] 54041- 8537 Oct, [place] [address] 42592- 4151 Oct, Bilateral hearing loss, unspecified hearing loss [...] ; Anxiety F41.9 and Environmental allergies Z91.09 [place] [id number] [place] [address] 66038- 6688 Oct, Chronic pain G89.29 and LEROY (generalized anxiety disorder) F41.1 [place] [address] 75320- 7027 Sep, [place] [address] 24338- 4656 Sep, Tear of right rotator cuff, unspecified [...] disease) J44.9 and Hearing reduced, bilateral H91.93 [place] [address] 44811- 2282 Sep, LEROY (generalized anxiety disorder) F41.[address] 52223- 0448 Aug, [place] [address] 65709- 4705 Aug, Tear of right rotator cuff, unspecified tear extent M75.101 [place] [id number] [place] [address] 83730- 9991 Aug, Seizures R56.9 ; Chronic pain G89.29 ; Generalized osteoarthritis M15.9 ; COPD (chronic obstructive pulmonary disease) J44.9 ; LEROY (generalized anxiety disorder) F41.1 ; Gastroesophageal reflux disease, esophagitis presence not specified K21.9 ; Scabies B86 ; Hypercholesterolemia E78.00 ; Irritable bladder N32.89 and Edema, unspecified type R60.9 [place] [id number] [place] [address] 73795- 4477 Jul, Major depressive disorder, recurrent episode F33.9 [place] [id number] [place] [address] 31167- 3909 Jul, Seizures R56.9 ; Hypercholesterolemia E78.00 ; BPH (benign prostatic hyperplasia) N40.0 ; Major depressive disorder, recurrent episode F33.9 and Edema, unspecified type R60.9 [place] [id number] [place] [address] 13842- 4995 Jul, Chronic pain G89.29 and LEROY (generalized anxiety disorder) F41.1 [place] [id number] [place] [address] 04935- 7659 Jul, Seizures R56.9 ; COPD (chronic obstructive [...] shoulder M25.511 and Other chronic pain G89.29 [place] [address] 77005- 3214 Jun, [place] [address] 06903- 1190 May, [place] [address] 06373- 8963 Apr, [place] [id number] [place] [address] 55804- 6882 Apr, Seizures R56.9 ; COPD (chronic obstructive pulmonary disease ) J44.9 ; BPH (benign prostatic hyperplasia) N40.0 ; Chronic pain G89.29 ; Tobacco abuse Z72.0 ; LEROY (generalized anxiety disorder) F41.1 ; Environmental allergies Z91.09 ; Irritable bladder N32.89 and Hypercholesterolemia E78.00 [place] [id number] [place] [address] 55175- 4161 Mar, [place] [address] 57089- 2824 Mar, [place] [id number] [place] [address] 23792- 1756 Mar, [place] [id number] [place] [address] 29517- 0451 Mar, [place] [id number] [place] [address] 30073- 6989 Feb, [facility] [id number] [place] [address] 87433- 8194 Feb, Chronic pain G89.29 [facility] [id number] [place] [address] 59385- 7492 Feb, [facility] [address] 78244- 0909 Jan, [facility] [id number] [place] [address] 47927- 9613 Dec, [facility] [address] 23303- 4994 Dec, [facility] [id number] [place] [address] 34041- 9231 Dec, Seizures R56.9 ; COPD (chronic obstructive pulmonary disease ) J44.9 ; Chronic pain G89.29 ; BPH (benign prostatic hyperplasia) N40.0 ; Generalized osteoarthritis M15.9 ; Hypercholesterolemia E78.0 ; Overactive bladder N32.81 ; Insomnia, unspecified type G47.00 ; Other depression F32.8 ; Environmental allergies Z91.09 and Gastroesophageal reflux disease, esophagitis presence not specified K21.9 [facility] [id number] [place] [address] 63105- 9209 November, Chronic pain due to trauma G89.21 and Anxiety F41.9 [facility] [id number] [place] [address] 87670- 4964 Oct, [facility] [id number] [place] [address] 30334- 1383 Sep, [facility] [id number] [place] [address] 40595- 2543 14 Sep, 2015 [facility] [id number] [place] [address] 90723- 3220 Sep, [facility] [id number] [place] [address] 63773- 4037 Sep, Seizures R56.9 ; Major depressive disorder, recurrent episode F33.9 and LEROY (generalized anxiety disorder) F41.1 [place] [id number] [place] [address] 80210- 8125 Aug, [place] [id number] [place] [address] 02793- 0109 Aug, COPD (chronic obstructive pulmonary disease) J44.9 ; Chronic pain G89.29 ; BPH (benign prostatic hyperplasia) N40.0 ; Tobacco abuse Z72.0 ; Generalized osteoarthritis M15.9 ; Seizures R56.9 ; Overactive bladder N32.81 ; Depression F32.9 and Anxiety F41.9 [place] [id number] [place] [address] 96245- 9876 Jul, Essential (primary) hypertension I10 ; Pure hypercholesterolemia E78.0 ; Generalized osteoarthrosis, unspecified site 715.00 and Other nursing home (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 Z79.899 [address] [id number] [place] [address] 59898- 3297 Jul, [place] [id number] [place] [address] 35476- 4595 Jul, [place] [id number] [place] [address] 36127- 9283 Jun, [place] [id number] [place] [address] 74602- 0023 May, [place] [id number] [place] [address] 89254- 4092 Apr, [place] [id number] [place] [address] 04556- 4136 Apr, Seizures R56.9 ; COPD (chronic obstructive pulmonary disease ) J44.9 ; Chronic pain G89.29 ; BPH (benign prostatic hyperplasia) N40.0 ; Tobacco abuse Z72.0 ; Generalized osteoarthritis M15.9 ; Insomnia G47.00 ; Anxiety F41.9 and GERD (gastroesophageal reflux disease) K21.9 [place] [id number] [place] [address] 29883- 3944 Apr, [facility] [id number] [place] [address] 13270- 8052 Mar, [place] [address] 94984- 9255 Feb, Major depression, recurrent 296.30 and Generalized anxiety disorder 300.02 [place] [address] 37816- 4045 Feb, [place] [address] 96977- 7532 Feb, [place] [id number] [place] [address] 79373- 9975 Jan, Chronic pain due to injury 338.21 ; Seizures 780.39 ; COPD ( chronic obstructive pulmonary disease) 496 ; BPH (benign prostatic hyperplasia) 600.00 ; Tobacco use disorder 305.1 ; Generalized osteoarthrosis, unspecified site 715.00 ; Anxiety 300.00 ; GERD (gastroesophageal reflux disease) 530.81 and Hypercholesteremia 272.0 [place] [address] [place] [address] 78272- 7714 Jan, [place] [id number] [place] [address] 06452- 0802 Jan, [place] [id number] [place] [address] 17313- 0417 Jan, [place] [id number] [place] [address] 21289- 9391 Jan, Seizures 780.39 ; COPD (chronic obstructive pulmonary disease) 496 ; Chronic pain due to injury 338.21 ; BPH (benign prostatic hyperplasia) 600.00 ; Tobacco use disorder 305.1 ; Generalized osteoarthrosis, unspecified site 715.00 ; Encounter for long-term (current) use of other medications V58.69 ; GERD (gastroesophageal reflux disease) 530.81 ; Hypercholesteremia 272.0 and Depression 311 [facility] [id number] [address]- 65[address] Jan, [facility] [id number], [place] [address]- 1472 Jan, Chronic pain due to injury 338.21 [place] [address] [place] [address] 38584- 8162 Dec, [facility] [id number] [address]- 4630 Dec, Seizures 780.39 ; COPD (chronic obstructive pulmonary disease) 496 ; Chronic pain due to injury 338.21 ; Environmental allergies V15.09 ; GERD (gastroesophageal reflux disease) 530.81 ; Essential hypertension 401.9 ; Psoriasis 696.1 ; PTSD (post-traumatic stress disorder) 309.81 and Depression (emotion) 311 IMMUNIZATIONS No Known Immunizations SOCIAL HISTORY Never Assessed REASON FOR VISIT Pain management (chronic)- Oneil Valentine RN, PMD, PHQ2, AUDIT C PLAN OF CARE Activity Details Follow Up 3 Months Reason: VITAL SIGNS Height 67.5 in 2017-10-10 Weight 180 lbs 2017-10-10 Temperature 98.0 degrees Fahrenheit 2017-10-10 Heart Rate 78 bpm 2017-10-10 Respiratory Rate 18 2017-10-10 BMI 27.77 kg/m2 2017-10-10 Blood pressure systolic 112 mmHg 2017-10-10 Blood pressure diastolic 74 mmHg 2017-10-10 MEDICATIONS Medication Instructions Dosage Frequency Start Date End Date Duration Status Advair Diskus 250-50 MCG/DOSE Inhalation Twice a day 1 puff 12h Feb, Active Percocet 10-325 MG Orally 3 times a day 1 tablet as needed 8h Sep, 28 days Active Omeprazole 20 mg Orally 2 times a day 1 capsule 12h Active Albuterol Sulfate HFA cfc free 90 mcg/inh Inhalation every 4 hrs 2 puffs as needed 4h Active Alprazolam 0.5 MG Orally 2 times a day prn 1 tablet Jul, 28 days Active Benadryl Allergy 25 MG Orally every 6 hrs 1 tablet as needed 6h Active Nebulizer Active Albuterol Sulfate (2.5 MG/3ML) 0.083% Inhalation 4 times a day DX: J44.9 USE ONE VIAL PER NEBULIZER FOUR TIMES DAILY 13 Active Cymbalta 60 mg Orally Once a day 1 capsule 24h Active Keppra 500 mg Orally 2 times a day 1 tablet 12h 30 Active Lipitor 20 mg Orally Once a day 1 tablet 24h Active VESIcare 5 mg Orally Once a day 1 tablet 24h 30 days Not-Taking Abilify 10 mg Orally Once in the morning 1 tablet Active Trazodone HCl 100 mg Orally Once a day 1 tablet at bedtime 24h Oct, 30 day(s) Active Fish Oil 1000 MG Orally Once a day 3 capsule 24h Active Flonase Allergy Relief 50 MCG/ACT Nasally 2 times a day 1-2 spray in each nostril 12h Active Tylenol 325 MG Orally every 6 hrs 2 tablets as needed 6h Active RESULTS No Results PROCEDURES Procedure Date Ordered Result Body Site PDM - OPIATES W/ OXYCODONE GROUPING (CPT 84744) October 10, 2017 DRUG SCREENING OXYCODONE October 10, 2017 [facility] VISIT ESTABLISHED PATIENT October 10, 2017 INSTRUCTIONS MEDICATIONS ADMINISTERED No Known Medications [...] dioxide poisoning 2013 Hospitalization History [facility] [place]- CP and SOB 10/17/2017
--- OUTSIDE RECORDS SUMMARY | 2018-05-25 14:41 | XMS REPORT ---
Author Author YUMIKO MICHEL [facility] Address [address] [place] [address] Care Team Providers Care Weight Reducing Technician Name Role Phone YUMIKO MICHEL Unavailable PROBLEMS Type Condition ICD9-CM Code BCF49-BI Code Onset Dates Condition Status SNOMED Code Problem Generalized osteoarthritis M15.9 Active 121543601 Problem LEROY (generalized anxiety disorder) F41.1 Active 84387784 Problem BPH (benign prostatic hyperplasia) N40.0 Active 614152378 Problem COPD (chronic obstructive pulmonary disease) J44.9 Active 30817318 Problem Tobacco abuse Z72.0 Active 73286227 Problem Chronic pain G89.29 Active 55111571 Problem Seizures R56.9 Active 29665537 Problem Post traumatic seizure disorder R56.1 Active 43067800 Problem Gastroesophageal reflux disease, esophagitis presence not specified K21.9 Active 846765935 Problem Irritable bladder N32.89 Active 680596794 Problem Major depressive disorder, recurrent episode F33.9 Active 995722779 Problem Environmental allergies Z91.09 Active 305085475 Problem Hypercholesterolemia E78.00 Active 97055615 ALLERGIES No Information ENCOUNTERS Encounter Location Date Diagnosis [facility] [id number] [place] [address] 84029- 0689 Jan, Generalized osteoarthritis M15.9 ; COPD (chronic obstructive pulmonary disease) J44.9 ; LEROY (generalized anxiety disorder) F41.1 and Gastroesophageal reflux disease, esophagitis presence not specified K21.9 [facility] [id number] [place] [address] 20044- 1185 Dec, Chronic pain G89.29 [facility] [id number] [place] [address] 40429- 1635 Dec, Anxiety F41.9 and COPD (chronic obstructive pulmonary disease) J44.9 [facility] [id number] [place] [address] 62163- 0471 November, Chronic pain G89.29 [facility] [address] [place] [id number] [place] [address] 72895- 8614 November, Medicare annual wellness visit, initial Z00.00 ; COPD ( chronic obstructive pulmonary disease) J44.9 ; Major depressive disorder, recurrent episode F33.9 ; Gastroesophageal reflux disease, esophagitis presence not specified K21.9 ; Hypercholesterolemia E78.00 ; Seizures R56.9 ; Chronic pain G89.29 ; BPH (benign prostatic hyperplasia) N40.0 and Encounter for immunization Z23 [facility] [address] 49027- 3695 November, Chronic pain G89.29 [facility] [place] [address] [place] [id number] [place] [address] 82005- 1905 Oct, [place] [address] 96415- 1601 Oct, Chronic pain G89.29 [place] [address] [place] [id number] [place] [address] 09424- 9186 Sep, [place] [address] 55292- 9605 Sep, COPD (chronic obstructive pulmonary disease) J44.9 ; Tobacco abuse Z72.0 ; Major depressive disorder, recurrent episode F33.9 and Hypercholesterolemia E78.00 [facility] [address] [place] [id number] [place] [address] 33930- 7413 Sep, [facility] [address] [id number] [place] [address] 37962- 9327 Sep, Hypercholesterolemia E78.00 [facility] [address] [id number] [place] [address] 83898- 5587 13 Sep, 2017 Chronic pain G89.29 ; COPD (chronic obstructive pulmonary disease) J44.9 ; Major depressive disorder, recurrent episode F33.9 ; Post traumatic seizure disorder R56.1 and Hypercholesterolemia E78.00 [facility] [address] [id number] [place] [address] 16306- 6864 Sep, Chronic pain G89.29 [place] [address] 17123- 1946 07 Aug, 2017 Major depressive disorder, recurrent episode F33.9 and Gastroesophageal reflux disease, esophagitis presence not specified K21.9 [place] [address] 32231- 9744 06 Aug, 2017 Chronic pain G89.29 [place] [address] 87649- 3982 Jul, Other chronic pain G89.29 and Anxiety F41.9 [place] [address] 03163- 0767 15 Jun, 2017 Chronic pain G89.29 and Seizures R56.9 [place] [address] 12993- 4732 Jun, Other chronic pain G89.29 and Anxiety F41.9 [place] [address] 22782- 1610 May, COPD (chronic obstructive pulmonary disease) J44.9 [place] [address] [id number] [place] [address] 71789- 2128 May, Other chronic pain G89.29 and Anxiety F41.9 [place] [address] [address] [id number] [place] [address] 06312- 7745 Apr, Other chronic pain G89.29 and Anxiety F41.9 [place] [address] [id number] [place] [address] 51131- 9797 Mar, Anxiety F41.9 and Other chronic pain G89.29 [place] [address] [id number] [place] [address] 85135- 1361 Feb, [place] [address] 30909- 7075 Feb, Anxiety F41.9 and Other chronic pain G89.29 [facility] [id number] [place] [address] 09893- 2719 Feb, [facility] [address] [address] [id number] [place] [address] 72087- 6735 Feb, COPD (chronic obstructive pulmonary disease) J44.9 ; Sleep apnea due to high altitude G47.31 and Oxygen desaturation during sleep G47.34 [place] [address] 52468- 5221 Jan, Other chronic pain G89.29 and Anxiety F41.9 [place] [address] 14269- 2030 Jan, [place] [address] 17326- 2161 Dec, Anxiety F41.9 and Other chronic pain G89.29 [place] [address] [id number] [place] [address] 76717- 7603 Dec, [place] [address] [id number] [place] [address] 13416- 0022 Dec, [place] [address] [id number] [place] [address] 19490- 0771 Dec, Seizures R56.9 ; Chronic pain G89.29 [...] and COPD (chronic obstructive pulmonary disease) J44.9 [facility] [address] [place] [id number] [place] [address] 38270- 2801 Dec, [facility] [address] [id number] [place] [address] 79704- 9410 Dec, [place] [address] [address] 9890 Dec, Generalized osteoarthritis M15.9 and Anxiety F41.9 [place] [address] [place] [id number] [place] [address] 20616- 8638 November, Status post shoulder surgery Z98.890 [place] [address] [id number] [place] [address] 21908- 8591 November, Generalized osteoarthritis M15.9 and Anxiety F41.9 [place] [address] [place] [id number] [place] [address] 30344- 0170 Oct, [place] [address] [id number] [place] [address] 25140- 1060 Oct, Bilateral hearing loss, unspecified hearing loss [...] ; Anxiety F41.9 and Environmental allergies Z91.09 [place] [id number] [place] [address] 23005- 2385 Oct, Chronic pain G89.29 and LEROY (generalized anxiety disorder) F41.1 [place] [id number] [place] [address] 57024- 7133 Sep, [place] [address] [place] [id number] [place] [address] 86576- 6345 Sep, Tear of right rotator cuff, unspecified [...] disease) J44.9 and Hearing reduced, bilateral H91.93 [place] [address] [place] [id number] [place] [address] 27496- 0310 Sep, LEROY (generalized anxiety disorder) F41.[address] 80694- 8670 Aug, [address] 70791- 7546 Aug, Tear of right rotator cuff, unspecified tear extent M75.101 [place] [id number] [place] [address] 62216- 1178 Aug, Seizures R56.9 ; Chronic pain G89.29 ; Generalized osteoarthritis M15.9 ; COPD (chronic obstructive pulmonary disease) J44.9 ; LEROY (generalized anxiety disorder) F41.1 ; Gastroesophageal reflux disease, esophagitis presence not specified K21.9 ; Scabies B86 ; Hypercholesterolemia E78.00 ; Irritable bladder N32.89 and Edema, unspecified type R60.9 [place] [id number] [place] [address] 54630- 2408 Jul, Major depressive disorder, recurrent episode F33.9 [place] [id number] [place] [address] 70212- 1256 Jul, Seizures R56.9 ; Hypercholesterolemia E78.00 ; BPH (benign prostatic hyperplasia) N40.0 ; Major depressive disorder, recurrent episode F33.9 and Edema, unspecified type R60.[address] 99444- 7393 Jul, Chronic pain G89.29 and LEROY (generalized anxiety disorder) F41.[address] 52028- 8200 Jul, Seizures R56.9 ; COPD (chronic obstructive [...] shoulder M25.511 and Other chronic pain G89.29 [facility] [address] 37015- 8927 Jun, [place] [address] 94694- 6948 May, [place] [address] 50576- 9823 Apr, [place] [address] 85420- 4583 Apr, Seizures R56.9 ; COPD (chronic obstructive pulmonary disease ) J44.9 ; BPH (benign prostatic hyperplasia) N40.0 ; Chronic pain G89.29 ; Tobacco abuse Z72.0 ; LEROY (generalized anxiety disorder) F41.1 ; Environmental allergies Z91.09 ; Irritable bladder N32.89 and Hypercholesterolemia E78.00 [facility] [address] [place] [id number] [place] [address] 46637- 4553 Mar, [facility] [address] [place] [id number] [place] [address] 65132- 6486 Mar, [facility] [address] [id number] [place] [address] 57462- 0935 Mar, [facility] [address] 26066- 5708 Mar, [facility] [address] [place] [id number] [place] [address] 06767- 0016 Feb, [facility] [address] 40533- 4895 Feb, Chronic pain G89.29 [facility] [address] [address] [id number] [place] [address] 60538- 7218 Feb, [facility] [address] [address] [id number] [place] [address] 518143- 3911 Jan, [facility] [address] [place] [id number] [place] [address] 30424- 8056 Dec, [facility] [address] [place] [id number] [place] [address] 41956- 1045 Dec, [place] [address] [address] [id number] [place] [address] 30447- 9240 Dec, Seizures R56.9 ; COPD (chronic obstructive pulmonary disease ) J44.9 ; Chronic pain G89.29 ; BPH (benign prostatic hyperplasia) N40.0 ; Generalized osteoarthritis M15.9 ; Hypercholesterolemia E78.0 ; Overactive bladder N32.81 ; Insomnia, unspecified type G47.00 ; Other depression F32.8 ; Environmental allergies Z91.09 and Gastroesophageal reflux disease, esophagitis presence not specified K21.9 [place] [address] [place] [id number] [place] [address] 90083- 0662 November, Chronic pain due to trauma G89.21 and Anxiety F41.9 [place] [address] [place] [id number] [place] [address] 19720- 9232 Oct, [facility] [address] [place] [id number] [place] [address] 21161- 6609 Sep, [facility] [id number] [place] [address] 69943- 9065 14 Sep, 2015 [facility] [address] [place] [id number] [place] [address] 70232- 3422 Sep, [facility] [id number] [place] [address] 48438- 1058 Sep, Seizures R56.9 ; Major depressive disorder, recurrent episode F33.9 and LEROY (generalized anxiety disorder) F41.1 [place] [address] [place] [id number] [place] [address] 26344- 6064 Aug, [address] 02710- 8407 Aug, COPD (chronic obstructive pulmonary disease) J44.9 ; Chronic pain G89.29 ; BPH (benign prostatic hyperplasia) N40.0 ; Tobacco abuse Z72.0 ; Generalized osteoarthritis M15.9 ; Seizures R56.9 ; Overactive bladder N32.81 ; Depression F32.9 and Anxiety F41.9 [place] [address] 88507- 2470 Jul, Essential (primary) hypertension I10 ; Pure hypercholesterolemia E78.0 ; Generalized osteoarthrosis, unspecified site 715.00 and Other assisted (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 Z79.899 [place] [address] 39312- 8840 Jul, [place] [address] [place] [id number] [place] [address] 55451- 3074 Jul, [place] [address] 24562- 8581 Jun, [place] [address] [place] [id number] [place] [address] 97666- 7056 May, [place] [address] [place] [id number] [place] [address] 99107- 9830 Apr, [place] [address] [place] [id number] [place] [address] 73851- 2079 Apr, Seizures R56.9 ; COPD (chronic obstructive pulmonary disease ) J44.9 ; Chronic pain G89.29 ; BPH (benign prostatic hyperplasia) N40.0 ; Tobacco abuse Z72.0 ; Generalized osteoarthritis M15.9 ; Insomnia G47.00 ; Anxiety F41.9 and GERD (gastroesophageal reflux disease) K21.9 [place] [address] [place] [id number] [place] [address] [id number]- 5580 Apr, [facility] [id number] [place] [address] 60902- 6418 Mar, [facility] [address] [place] [id number] [place] [address] 79423- 2660 Feb, Major depression, recurrent 296.30 and Generalized anxiety disorder 300.02 [place] [address] [place] [id number] [place] [address] 623162- 9046 Feb, [facility] [address] [place] [id number] [place] [address] 27822- 2834 Feb, [place] [address] [place] [id number] [place] [address] 524016- 7864 Jan, Chronic pain due to injury 338.21 ; Seizures 780.39 ; COPD ( chronic obstructive pulmonary disease) 496 ; BPH (benign prostatic hyperplasia) 600.00 ; Tobacco use disorder 305.1 ; Generalized osteoarthrosis, unspecified site 715.00 ; Anxiety 300.00 ; GERD (gastroesophageal reflux disease) 530.81 and Hypercholesteremia 272.0 [place] [address] [place] [id number] [place] [address] 56233- 8165 Jan, [place] [address] [place] [id number] [place] [address] 36569- 9119 Jan, [place] [id number] [place] [address] 73211- 1062 Jan, [place] [address] [place] [id number] [place] [address] 049351- 6374 Jan, Seizures 780.39 ; COPD (chronic obstructive pulmonary disease) 496 ; Chronic pain due to injury 338.21 ; BPH (benign prostatic hyperplasia) 600.00 ; Tobacco use disorder 305.1 ; Generalized osteoarthrosis, unspecified site 715.00 ; Encounter for long-term (current) use of other medications V58.69 ; GERD (gastroesophageal reflux disease) 530.81 ; Hypercholesteremia 272.0 and Depression [address] [place] [address] [place] [address] [id number] [place] [address] 88546- 2546 Jan, [facility] [address] [facility] [id number] [place] [address]- 2546 Jan, Chronic pain due to injury 338.21 [facility] [address] [facility] [id number] [place] [address]- 2546 Dec, [facility] [address] [facility] [id number] [address]- 2546 Dec, Seizures 780.39 ; COPD (chronic obstructive pulmonary disease) 496 ; Chronic pain due to injury 338.21 ; Environmental allergies V15.09 ; GERD (gastroesophageal reflux disease) 530.81 ; Essential hypertension 401.9 ; Psoriasis 696.1 ; PTSD (post-traumatic stress disorder) 309.81 and Depression (emotion) 311 IMMUNIZATIONS No Known Immunizations SOCIAL HISTORY Never Assessed REASON FOR VISIT Lab (walk-in) PLAN OF CARE VITAL SIGNS MEDICATIONS Unknown Medications RESULTS No Results PROCEDURES Procedure Date Ordered Result Body Site LAB NOT BILLED BY [facility] October 17, 2017 INSTRUCTIONS MEDICATIONS ADMINISTERED No Known Medications [...] dioxide poisoning 2013 Hospitalization History [facility] [place]- CP and SOB 10/17/2017
--- OUTSIDE RECORDS SUMMARY | 2018-05-25 14:42 | XMS REPORT ---
Author Author YUMIKO MICHEL [facility] Address [address] [place] [address] Care Team Providers Care House Officer Name Role Phone YUMIKO MICHEL Unavailable PROBLEMS Type Condition ICD9-CM Code ZWS33-VW Code Onset Dates Condition Status SNOMED Code Problem Generalized osteoarthritis M15.9 Active 687606403 Problem LEROY (generalized anxiety disorder) F41.1 Active 48092356 Problem BPH (benign prostatic hyperplasia) N40.0 Active 038633432 Problem COPD (chronic obstructive pulmonary disease) J44.9 Active 75707550 Problem Tobacco abuse Z72.0 Active 50473844 Problem Chronic pain G89.29 Active 35995105 Problem Seizures R56.9 Active 70289427 Problem Post traumatic seizure disorder R56.1 Active 18477885 Problem Gastroesophageal reflux disease, esophagitis presence not specified K21.9 Active 427099562 Problem Irritable bladder N32.89 Active 646271531 Problem Major depressive disorder, recurrent episode F33.9 Active 428388712 Problem Environmental allergies Z91.09 Active 699929179 Problem Hypercholesterolemia E78.00 Active 36856261 ALLERGIES No Information ENCOUNTERS Encounter Location Date Diagnosis [facility] [id number] [place] [address] 48401- 5536 November, Medicare annual wellness visit, initial Z00.00 ; COPD ( chronic obstructive pulmonary disease) J44.9 ; Major depressive disorder, recurrent episode F33.9 ; Gastroesophageal reflux disease, esophagitis presence not specified K21.9 ; Hypercholesterolemia E78.00 ; Seizures R56.9 ; Chronic pain G89.29 ; BPH (benign prostatic hyperplasia) N40.0 and Encounter for immunization Z23 [facility] [id number] [place] [address] 39934- 4787 November, Chronic pain G89.29 [facility] [id number] [place] [address] 71655- 5435 Oct, [facility] [id number] [place] [address] 25234- 0099 Oct, Chronic pain G89.29 [facility] [id number] [place] [address] 81792- 9209 Sep, [facility] [id number] [place] [address] 55609- 8702 Sep, COPD (chronic obstructive pulmonary disease) J44.9 ; Tobacco abuse Z72.0 ; Major depressive disorder, recurrent episode F33.9 and Hypercholesterolemia E78.00 [facility] [address] 18183- 2440 Sep, [facility] [address] 92072- 0704 Sep, Hypercholesterolemia E78.00 [facility] [address] 23206- 9753 Sep, Chronic pain G89.29 ; COPD (chronic obstructive pulmonary disease) J44.9 ; Major depressive disorder, recurrent episode F33.9 ; Post traumatic seizure disorder R56.1 and Hypercholesterolemia E78.00 [facility] [id number] [place] [address] 85525- 6089 Sep, Chronic pain G89.29 [facility] [id number] [place] [address] 57179- 4641 07 Aug, 2017 Major depressive disorder, recurrent episode F33.9 and Gastroesophageal reflux disease, esophagitis presence not specified K21.9 [facility] [id number] [place] [address] 26516- 0945 Aug, Chronic pain G89.29 [facility] [id number] [place] [address] 29854- 7742 Jul, Other chronic pain G89.29 and Anxiety F41.9 [facility] [id number] [place] [address] 47370- 8974 Jun, Chronic pain G89.29 and Seizures R56.9 [facility] [id number] [place] [address] 78270- 0737 Jun, Other chronic pain G89.29 and Anxiety F41.9 [facility] [id number] [place] [address] 48043- 6487 May, COPD (chronic obstructive pulmonary disease) J44.9 [facility] [address] 93033- 0254 May, Other chronic pain G89.29 and Anxiety F41.9 [facility] [address] 32567- 6142 Apr, Other chronic pain G89.29 and Anxiety F41.9 [facility] [address] 44704- 6679 Mar, Anxiety F41.9 and Other chronic pain G89.29 [facility] [address] 31477- 9598 Feb, [facility] [address] 57698- 0969 Feb, Anxiety F41.9 and Other chronic pain G89.29 [facility] [id number] [place] [address] 47490- 8168 Feb, [facility] [address] 37437- 1268 Feb, COPD (chronic obstructive pulmonary disease) J44.9 ; Sleep apnea due to high altitude G47.31 and Oxygen desaturation during sleep G47.34 [facility] [id number] [place] [address] 88507- 9844 Jan, Other chronic pain G89.29 and Anxiety F41.9 [facility] [id number] [place] [address] 13271- 9406 Jan, [facility] [address] [place] [address] 6699 29 Dec, 2016 Anxiety F41.9 and Other chronic pain G89.29 [facility] [id number] [place] [address] 46320- 1151 16 Dec, 2016 [facility] [id number] [place] [address] 83819- 1131 08 Dec, 2016 [facility] [id number] [place] [address] 25487- 5380 Dec, Seizures R56.9 ; Chronic pain G89.29 [...] and COPD (chronic obstructive pulmonary disease) J44.9 [facility] [id number] [place] [address] 97177- 3570 Dec, [facility] [id number] [place] [address] 34811- 2547 Dec, [facility] [id number] [place] [address] 97163- 5689 Dec, Generalized osteoarthritis M15.9 and Anxiety F41.9 [facility] [id number] [place] [address] 18458- 8756 November, Status post shoulder surgery Z98.890 [facility] [id number] [place] [address] 53393- 7642 November, Generalized osteoarthritis M15.9 and Anxiety F41.9 [facility] [id number] [place] [address] 08959- 5587 Oct, [facility] [id number] [place] [address] 15924- 1996 Oct, Bilateral hearing loss, unspecified hearing loss [...] ; Anxiety F41.9 and Environmental allergies Z91.09 [facility] [address] 39104- 2539 Oct, Chronic pain G89.29 and LEROY (generalized anxiety disorder) F41.1 [facility] [address] 37948- 1461 Sep, [address] 52865- 8185 Sep, Tear of right rotator cuff, unspecified [...] disease) J44.9 and Hearing reduced, bilateral H91.93 [facility] [id number] [place] [address] 18213- 8645 Sep, LEROY (generalized anxiety disorder) F41.1 [facility] [address] 72326- 5870 Aug, [facility] [address] 06127- 0310 Aug, Tear of right rotator cuff, unspecified tear extent M75.101 [facility] [address] 10350- 5939 Aug, Seizures R56.9 ; Chronic pain G89.29 ; Generalized osteoarthritis M15.9 ; COPD (chronic obstructive pulmonary disease) J44.9 ; LEROY (generalized anxiety disorder) F41.1 ; Gastroesophageal reflux disease, esophagitis presence not specified K21.9 ; Scabies B86 ; Hypercholesterolemia E78.00 ; Irritable bladder N32.89 and Edema, unspecified type R60.9 [facility] [id number] [place] [address] 48170- 6645 Jul, Major depressive disorder, recurrent episode F33.9 [facility] [id number] [place] [address] 34584- 0091 Jul, Seizures R56.9 ; Hypercholesterolemia E78.00 ; BPH (benign prostatic hyperplasia) N40.0 ; Major depressive disorder, recurrent episode F33.9 and Edema, unspecified type R60.9 [place] [id number] [place] [address] 76428- 7896 Jul, Chronic pain G89.29 and LEROY (generalized anxiety disorder) F41.1 [place] [id number] [place] [address] 54743- 3410 Jul, Seizures R56.9 ; COPD (chronic obstructive [...] shoulder M25.511 and Other chronic pain G89.29 [facility] [id number] [place] [address] 67488- 2591 Jun, [facility] [id number] [place] [address] 68731- 9579 May, [facility] [id number] [place] [address] 22254- 2106 Apr, [facility] [id number] [place] [address] 84937 2544 Apr, Seizures R56.9 ; COPD (chronic obstructive pulmonary disease ) J44.9 ; BPH (benign prostatic hyperplasia) N40.0 ; Chronic pain G89.29 ; Tobacco abuse Z72.0 ; LEROY (generalized anxiety disorder) F41.1 ; Environmental allergies Z91.09 ; Irritable bladder N32.89 and Hypercholesterolemia E78.00 [facility] [id number] [place] [address] 11091 2546 Mar, [facility] [id number] [place] [address] 11534 2546 Mar, [facility] [id number] [place] [address] 18677 2546 Mar, [facility] [id number] [place] [address] 56069 2546 Mar, [facility] [id number] [place] [address] 59035 2540 Feb, [facility] [id number] [place] [address] 99022 2546 Feb, Chronic pain G89.29 [facility] [id number] [place] [address] 48214 2546 Feb, [facility] [id number] [place] [address] 45424 2546 Jan, [facility] [id number] [place] [address] 09848 2546 Dec, [facility] [id number] [place] [address] 08029 2546 Dec, [facility] [id number] [place] [address] 57842 2546 Dec, Seizures R56.9 ; COPD (chronic obstructive pulmonary disease ) J44.9 ; Chronic pain G89.29 ; BPH (benign prostatic hyperplasia) N40.0 ; Generalized osteoarthritis M15.9 ; Hypercholesterolemia E78.0 ; Overactive bladder N32.81 ; Insomnia, unspecified type G47.00 ; Other depression F32.8 ; Environmental allergies Z91.09 and Gastroesophageal reflux disease, esophagitis presence not specified K21.9 [facility] [id number] [place] [address] 19807- 8168 November, Chronic pain due to trauma G89.21 and Anxiety F41.9 [facility] [id number] [place] [address] 94516- 3775 Oct, [facility] [address] 75012- 6322 Sep, [facility] [id number] [place] [address] 26951- 9060 Sep, [address] 29739- 0014 Sep, [facility] [id number] [place] [address] 50213- 0929 Sep, Seizures R56.9 ; Major depressive disorder, recurrent episode F33.9 and LEROY (generalized anxiety disorder) F41.1 [place] [id number] [place] [address] 74934- 4791 Aug, [place] [id number] [place] [address] 97115- 4314 Aug, COPD (chronic obstructive pulmonary disease) J44.9 ; Chronic pain G89.29 ; BPH (benign prostatic hyperplasia) N40.0 ; Tobacco abuse Z72.0 ; Generalized osteoarthritis M15.9 ; Seizures R56.9 ; Overactive bladder N32.81 ; Depression F32.9 and Anxiety F41.9 [address] [place] [address] 37908- 4661 Jul, Essential (primary) hypertension I10 ; Pure hypercholesterolemia E78.0 ; Generalized osteoarthrosis, unspecified site 715.00 and Other halfway (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 Z79.899 [facility] [id number] [place] [address] 49596- 1305 Jul, [facility] [id number] [place] [address] 53584- 9841 Jul, [facility] [id number] [place] [address] 03224- 8526 Jun, [facility] [address] 72476- 8889 May, [facility] [address] 48579- 0232 Apr, [facility] [address] 41823- 2672 Apr, Seizures R56.9 ; COPD (chronic obstructive pulmonary disease ) J44.9 ; Chronic pain G89.29 ; BPH (benign prostatic hyperplasia) N40.0 ; Tobacco abuse Z72.0 ; Generalized osteoarthritis M15.9 ; Insomnia G47.00 ; Anxiety F41.9 and GERD (gastroesophageal reflux disease) K21.9 [facility] [address] 22091- 8112 Apr, [facility] [id number] [place] [address] 49988- 2937 Mar, [facility] [id number] [place] [address] 85746- 8925 Feb, Major depression, recurrent 296.30 and Generalized anxiety disorder 300.02 [facility] [id number] [place] [address] 48283- 1964 Feb, [facility] [address] 13538- 6322 Feb, [facility] [id number] [place] [address] 25754- 5236 Jan, Chronic pain due to injury 338.21 ; Seizures 780.39 ; COPD ( chronic obstructive pulmonary disease) 496 ; BPH (benign prostatic hyperplasia) 600.00 ; Tobacco use disorder 305.1 ; Generalized osteoarthrosis, unspecified site 715.00 ; Anxiety 300.00 ; GERD (gastroesophageal reflux disease) 530.81 and Hypercholesteremia 272.0 [facility] [address] [place] [address] 86867680- 9070 Jan, [facility] [address] 21962- 3439 Jan, [facility] [id number] [place] [address] 73431- 5686 Jan, [address] 39046- 4700 Jan, Seizures 780.39 ; COPD (chronic obstructive pulmonary disease) 496 ; Chronic pain due to injury 338.21 ; BPH (benign prostatic hyperplasia) 600.00 ; Tobacco use disorder 305.1 ; Generalized osteoarthrosis, unspecified site 715.00 ; Encounter for long-term (current) use of other medications V58.69 ; GERD (gastroesophageal reflux disease) 530.81 ; Hypercholesteremia 272.0 and Depression [id number] [place] [address] 47065- 1564 Jan, [place] [id number] [place] [address] 25162- 4075 Jan, Chronic pain due to injury 338.21 [facility] [id number] [place] [address] 69999- 7057 Dec, [place] [id number] [place] [address] 21163- 9076 Dec, Seizures 780.39 ; COPD (chronic obstructive pulmonary disease) 496 ; Chronic pain due to injury 338.21 ; Environmental allergies V15.09 ; GERD (gastroesophageal reflux disease) 530.81 ; Essential hypertension 401.9 ; Psoriasis 696.1 ; PTSD (post-traumatic stress disorder) 309.81 and Depression (emotion) 311 IMMUNIZATIONS No Known Immunizations SOCIAL HISTORY Never Assessed REASON FOR VISIT isaac Minorx- 10- 20 PLAN OF CARE VITAL SIGNS MEDICATIONS Medication Instructions Dosage Frequency Start Date End Date Duration Status Alprazolam 0.5 MG Orally 2 times a day prn 1 tablet Jul, 28 days Active Percocet 10-325 MG Orally 3 times a day 1 tablet as needed 8h Apr, 28 days Active RESULTS No Results PROCEDURES [...] dioxide poisoning 2013 Hospitalization History [facility]- CP and SOB 10/17/2017
--- OUTSIDE RECORDS SUMMARY | 2018-05-25 14:42 | XMS REPORT ---
Author Author YUMIKO MICHEL [facility] Address [address] [place] [address] Care Team Providers Care Supervisor [employer] Name Role Phone YUMIKO MICHEL Unavailable PROBLEMS Type Condition ICD9-CM Code BAH23-TC Code Onset Dates Condition Status SNOMED Code Problem Generalized osteoarthritis M15.9 Active 453839741 Problem LEROY (generalized anxiety disorder) F41.1 Active 07155193 Problem BPH (benign prostatic hyperplasia) N40.0 Active 306857177 Problem COPD (chronic obstructive pulmonary disease) J44.9 Active 57277708 Problem Tobacco abuse Z72.0 Active 47949178 Problem Chronic pain G89.29 Active 47480972 Problem Seizures R56.9 Active 04343983 Problem Post traumatic seizure disorder R56.1 Active 91292903 Problem Gastroesophageal reflux disease, esophagitis presence not specified K21.9 Active 325285551 Problem Irritable bladder N32.89 Active 593344841 Problem Major depressive disorder, recurrent episode F33.9 Active 293466739 Problem Environmental allergies Z91.09 Active 126297019 Problem Hypercholesterolemia E78.00 Active 06869460 ALLERGIES No Information ENCOUNTERS Encounter Location Date Diagnosis [facility] [id number] [place] [address] 78903- 7241 Jan, Generalized osteoarthritis M15.9 ; COPD (chronic obstructive pulmonary disease) J44.9 ; LEROY (generalized anxiety disorder) F41.1 and Gastroesophageal reflux disease, esophagitis presence not specified K21.9 [facility] [id number] [place] [address] 17068- 7074 Dec, Chronic pain G89.29 [facility] [id number] [place] [address] 44107- 0136 Dec, Anxiety F41.9 and COPD (chronic obstructive pulmonary disease) J44.9 [facility] [address] [place] [id number] [place] [address] 03718- 0876 November, Chronic pain G89.29 [facility] [address] [place] [id number] [place] [address] 03220- 8820 November, Medicare annual wellness visit, initial Z00.00 ; COPD ( chronic obstructive pulmonary disease) J44.9 ; Major depressive disorder, recurrent episode F33.9 ; Gastroesophageal reflux disease, esophagitis presence not specified K21.9 ; Hypercholesterolemia E78.00 ; Seizures R56.9 ; Chronic pain G89.29 ; BPH (benign prostatic hyperplasia) N40.0 and Encounter for immunization Z23 [place] [address] 15406- 8522 November, Chronic pain G89.29 [place] [address] [place] [id number] [place] [address] 73552- 1973 Oct, [place] [address] 08148- 1381 Oct, Chronic pain G89.29 [place] [address] [place] [id number] [place] [address] 43734- 2565 Sep, [place] [address] 11472- 6523 Sep, COPD (chronic obstructive pulmonary disease) J44.9 ; Tobacco abuse Z72.0 ; Major depressive disorder, recurrent episode F33.9 and Hypercholesterolemia E78.00 [place] [address] [place] [id number] [place] [address] 26043- 8007 Sep, [facility] [address] [id number] [place] [address] 83908- 1262 Sep, Hypercholesterolemia E78.00 [facility] [address] [id number] [place] [address] 71768- 8779 13 Sep, 2017 Chronic pain G89.29 ; COPD (chronic obstructive pulmonary disease) J44.9 ; Major depressive disorder, recurrent episode F33.9 ; Post traumatic seizure disorder R56.1 and Hypercholesterolemia E78.00 [facility] [address] [place] [id number] [place] [address] 11498- 4318 Sep, Chronic pain G89.29 [place] [address] 20280- 1016 07 Aug, 2017 Major depressive disorder, recurrent episode F33.9 and Gastroesophageal reflux disease, esophagitis presence not specified K21.9 [place] [address] 77024- 1814 06 Aug, 2017 Chronic pain G89.29 [place] [address] 69594- 5983 Jul, Other chronic pain G89.29 and Anxiety F41.9 [place] [address] 35268- 4414 15 Jun, 2017 Chronic pain G89.29 and Seizures R56.9 [place] [address] 98759- 5073 Jun, Other chronic pain G89.29 and Anxiety F41.9 [place] [address] 79641- 9817 May, COPD (chronic obstructive pulmonary disease) J44.9 [place] [address] [place] [id number] [place] [address] 63252- 4012 May, Other chronic pain G89.29 and Anxiety F41.9 [place] [address] [place] [id number] [place] [address] 12928- 7593 Apr, Other chronic pain G89.29 and Anxiety F41.9 [place] [address] [place] [id number] [place] [address] 46346- 6595 Mar, Anxiety F41.9 and Other chronic pain G89.29 [place] [address] [place] [id number] [place] [address] 40409- 5877 Feb, [place] [address] 66017- 2527 Feb, Anxiety F41.9 and Other chronic pain G89.29 [facility] [id number] [place] [address] 70270- 2504 Feb, [facility] [address] [place] [id number] [place] [address] 08059- 5429 Feb, COPD (chronic obstructive pulmonary disease) J44.9 ; Sleep apnea due to high altitude G47.31 and Oxygen desaturation during sleep G47.34 [place] [address] 05394- 6702 Jan, Other chronic pain G89.29 and Anxiety F41.9 [place] [address] 01201- 4200 Jan, [place] [address] 99188- 9869 Dec, Anxiety F41.9 and Other chronic pain G89.29 [place] [address] [place] [id number] [place] [address] 52030- 8610 Dec, [place] [address] [place] [id number] [place] [address] 74971- 9167 Dec, [place] [address] [place] [id number] [place] [address] 70508- 6120 Dec, Seizures R56.9 ; Chronic pain G89.29 [...] and COPD (chronic obstructive pulmonary disease) J44.9 [facility] [address] [id number] [place] [address] 85339- 1796 Dec, [facility] [address] [place] [id number] [place] [address] 80074- 1755 Dec, [place] [address] [address] 9098 Dec, Generalized osteoarthritis M15.9 and Anxiety F41.9 [place] [address] [place] [id number] [place] [address] 40497- 0569 November, Status post shoulder surgery Z98.890 [place] [address] [place] [id number] [place] [address] 64377- 8926 November, Generalized osteoarthritis M15.9 and Anxiety F41.9 [place] [address] [place] [id number] [place] [address] 45225- 6619 Oct, [place] [address] [place] [id number] [place] [address] 41181- 1868 Oct, Bilateral hearing loss, unspecified hearing loss [...] ; Anxiety F41.9 and Environmental allergies Z91.09 [place] [address] [place] [address] 99991- 9657 Oct, Chronic pain G89.29 and LEROY (generalized anxiety disorder) F41.1 [place] [id number] [place] [address] 52972- 0978 Sep, [place] [address] [place] [id number] [place] [address] 11967- 5144 Sep, Tear of right rotator cuff, unspecified [...] disease) J44.9 and Hearing reduced, bilateral H91.93 [place] [address] [place] [id number] [place] [address] 74425- 0224 Sep, LEROY (generalized anxiety disorder) F41.[address] 39395- 5320 Aug, [address] 66791- 3165 Aug, Tear of right rotator cuff, unspecified tear extent M75.101 [place] [id number] [place] [address] 76374- 4624 Aug, Seizures R56.9 ; Chronic pain G89.29 ; Generalized osteoarthritis M15.9 ; COPD (chronic obstructive pulmonary disease) J44.9 ; LEROY (generalized anxiety disorder) F41.1 ; Gastroesophageal reflux disease, esophagitis presence not specified K21.9 ; Scabies B86 ; Hypercholesterolemia E78.00 ; Irritable bladder N32.89 and Edema, unspecified type R60.9 [place] [id number] [place] [address] 68430- 0140 Jul, Major depressive disorder, recurrent episode F33.9 [place] [id number] [place] [address] 37690- 9052 Jul, Seizures R56.9 ; Hypercholesterolemia E78.00 ; BPH (benign prostatic hyperplasia) N40.0 ; Major depressive disorder, recurrent episode F33.9 and Edema, unspecified type R60.[address] 11405- 8621 Jul, Chronic pain G89.29 and LEROY (generalized anxiety disorder) F41.[address] 80422- 3966 Jul, Seizures R56.9 ; COPD (chronic obstructive [...] shoulder M25.511 and Other chronic pain G89.29 [facility] [address] 10371- 4499 Jun, [place] [address] 43234- 0038 May, [place] [address] 64700- 2246 Apr, [place] [address] 58003- 0004 Apr, Seizures R56.9 ; COPD (chronic obstructive pulmonary disease ) J44.9 ; BPH (benign prostatic hyperplasia) N40.0 ; Chronic pain G89.29 ; Tobacco abuse Z72.0 ; LEROY (generalized anxiety disorder) F41.1 ; Environmental allergies Z91.09 ; Irritable bladder N32.89 and Hypercholesterolemia E78.00 [facility] [address] [place] [id number] [place] [address] 26626- 7077 Mar, [facility] [address] [place] [id number] [place] [address] 16344- 3977 Mar, [facility] [address] [place] [id number] [place] [address] 89922- 2669 Mar, [facility] [address] 52600- 9202 Mar, [facility] [address] [place] [id number] [place] [address] 92235- 7281 Feb, [facility] [address] 35070- 1744 Feb, Chronic pain G89.29 [facility] [address] [place] [address] [id number] [place] [address] 33001- 6613 Feb, [facility] [address] [place] [address] [id number] [place] [address] 456342- 0077 Jan, [facility] [address] [place] [id number] [place] [address] 69134- 4856 Dec, [facility] [address] [place] [id number] [place] [address] 96681- 2916 Dec, [place] [address] [place] [id number] [place] [address] 13553- 0168 Dec, Seizures R56.9 ; COPD (chronic obstructive pulmonary disease ) J44.9 ; Chronic pain G89.29 ; BPH (benign prostatic hyperplasia) N40.0 ; Generalized osteoarthritis M15.9 ; Hypercholesterolemia E78.0 ; Overactive bladder N32.81 ; Insomnia, unspecified type G47.00 ; Other depression F32.8 ; Environmental allergies Z91.09 and Gastroesophageal reflux disease, esophagitis presence not specified K21.9 [place] [address] [place] [id number] [place] [address] 82697- 3277 November, Chronic pain due to trauma G89.21 and Anxiety F41.9 [place] [address] [place] [id number] [place] [address] 96009- 7085 Oct, [facility] [address] [place] [id number] [place] [address] 44550- 9644 Sep, [facility] [id number] [place] [address] 63695- 1595 14 Sep, 2015 [facility] [address] [place] [id number] [place] [address] 48528- 5303 Sep, [facility] [id number] [place] [address] 86657- 9188 Sep, Seizures R56.9 ; Major depressive disorder, recurrent episode F33.9 and LEROY (generalized anxiety disorder) F41.1 [place] [address] [place] [id number] [place] [address] 16918- 1169 Aug, [address] 28161- 0409 Aug, COPD (chronic obstructive pulmonary disease) J44.9 ; Chronic pain G89.29 ; BPH (benign prostatic hyperplasia) N40.0 ; Tobacco abuse Z72.0 ; Generalized osteoarthritis M15.9 ; Seizures R56.9 ; Overactive bladder N32.81 ; Depression F32.9 and Anxiety F41.9 [place] [address] 09202- 7012 Jul, Essential (primary) hypertension I10 ; Pure hypercholesterolemia E78.0 ; Generalized osteoarthrosis, unspecified site 715.00 and Other chcf (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 Z79.899 [place] [address] 42514- 5566 Jul, [place] [address] [place] [id number] [place] [address] 81979- 0749 Jul, [place] [address] 89179- 4133 Jun, [place] [address] [place] [id number] [place] [address] 82515- 5365 May, [place] [address] [place] [id number] [place] [address] 03473- 5430 Apr, [place] [address] [place] [id number] [place] [address] 78247- 1773 Apr, Seizures R56.9 ; COPD (chronic obstructive pulmonary disease ) J44.9 ; Chronic pain G89.29 ; BPH (benign prostatic hyperplasia) N40.0 ; Tobacco abuse Z72.0 ; Generalized osteoarthritis M15.9 ; Insomnia G47.00 ; Anxiety F41.9 and GERD (gastroesophageal reflux disease) K21.9 [place] [address] [place] [id number] [place] [address] 35998616- 2912 Apr, [facility] [id number] [place] [address] 75492- 3197 Mar, [facility] [address] [place] [id number] [place] [address] 09507- 2169 Feb, Major depression, recurrent 296.30 and Generalized anxiety disorder 300.02 [place] [address] [place] [id number] [place] [address] 428682- 9605 Feb, [facility] [address] [place] [id number] [place] [address] 17954- 3671 Feb, [place] [address] [place] [id number] [place] [address] 322320- 6932 Jan, Chronic pain due to injury 338.21 ; Seizures 780.39 ; COPD ( chronic obstructive pulmonary disease) 496 ; BPH (benign prostatic hyperplasia) 600.00 ; Tobacco use disorder 305.1 ; Generalized osteoarthrosis, unspecified site 715.00 ; Anxiety 300.00 ; GERD (gastroesophageal reflux disease) 530.81 and Hypercholesteremia 272.0 [place] [address] [place] [id number] [place] [address] 49851- 3049 Jan, [place] [address] [place] [id number] [place] [address] 06291- 7205 Jan, [place] [id number] [place] [address] 84229- 1881 Jan, [place] [address] [place] [id number] [place] [address] 131725- 9771 Jan, Seizures 780.39 ; COPD (chronic obstructive pulmonary disease) 496 ; Chronic pain due to injury 338.21 ; BPH (benign prostatic hyperplasia) 600.00 ; Tobacco use disorder 305.1 ; Generalized osteoarthrosis, unspecified site 715.00 ; Encounter for long-term (current) use of other medications V58.69 ; GERD (gastroesophageal reflux disease) 530.81 ; Hypercholesteremia 272.0 and Depression 311 [place] [address] [place] [id number] [place] [address] 82017- 2546 Jan, [facility] [address] [facility] [id number] [place] [address]- 2546 Jan, Chronic pain due to injury 338.21 [facility] [address] [facility] [id number] [place] [address]- 2546 Dec, [facility] [address] [facility] [id number] [address]- 2546 Dec, Seizures 780.39 ; COPD (chronic obstructive pulmonary disease) 496 ; Chronic pain due to injury 338.21 ; Environmental allergies V15.09 ; GERD (gastroesophageal reflux disease) 530.81 ; Essential hypertension 401.9 ; Psoriasis 696.1 ; PTSD (post-traumatic stress disorder) 309.81 and Depression (emotion) 311 IMMUNIZATIONS No Known Immunizations SOCIAL HISTORY Never Assessed REASON FOR VISIT Oxycodone and Alprazolam 10/06 PLAN OF CARE VITAL SIGNS MEDICATIONS Medication Instructions Dosage Frequency Start Date End Date Duration Status Alprazolam 0.5 MG Orally 2 times a day prn 1 tablet Jul, 28 days Active Percocet 10-325 MG Orally 3 times a day 1 tablet as needed 8h Sep, 28 days Active RESULTS No Results PROCEDURES [...] dioxide poisoning 2013 Hospitalization History [facility] [place]- CP and SOB 10/17/2017
--- OUTSIDE RECORDS SUMMARY | 2018-05-25 14:42 | XMS REPORT ---
Author Author Hima KAYLYNN Organization [facility] Address [address] [place] [address] Care Team Providers Care Child Care Team Lead Name Role Phone veraARCHANA KAYLYNN Unavailable PROBLEMS Type Condition ICD9-CM Code RCO25-LU Code Onset Dates Condition Status SNOMED Code Problem Generalized osteoarthritis M15.9 Active 931081418 Problem LEROY (generalized anxiety disorder) F41.1 Active 18293757 Problem BPH (benign prostatic hyperplasia) N40.0 Active 957645099 Problem COPD (chronic obstructive pulmonary disease) J44.9 Active 30471805 Problem Tobacco abuse Z72.0 Active 30944647 Problem Chronic pain G89.29 Active 79860219 Problem Seizures R56.9 Active 03379674 Problem Post traumatic seizure disorder R56.1 Active 69636160 Problem Gastroesophageal reflux disease, esophagitis presence not specified K21.9 Active 202084130 Problem Irritable bladder N32.89 Active 478960442 Problem Major depressive disorder, recurrent episode F33.9 Active 707172457 Problem Environmental allergies Z91.09 Active 115695921 Problem Hypercholesterolemia E78.00 Active 01031186 ALLERGIES Substance Reaction Event Type Date Status Ultracet headache, "blindness" Drug Allergy Feb, Active Prozac "stops my heart" Drug Allergy Feb, Active Codeine Sulfate agitation Drug Allergy Feb, Active ENCOUNTERS Encounter Location Date Diagnosis [facility] [address] [facility] [id number] [address] November, Chronic pain G89.29 [facility] [address] [place] [id number] [address] November, Medicare annual wellness visit, initial Z00.00 ; COPD ( chronic obstructive pulmonary disease) J44.9 ; Major depressive disorder, recurrent episode F33.9 ; Gastroesophageal reflux disease, esophagitis presence not specified K21.9 ; Hypercholesterolemia E78.00 ; Seizures R56.9 ; Chronic pain G89.29 ; BPH (benign prostatic hyperplasia) N40.0 and Encounter for immunization Z23 [place] [address] [address] November, Chronic pain G89.29 [place] [address] [address] Oct, [facility] [address] [address] Oct, Chronic pain G89.29 [place] [address] [address] Sep, [place] [address] [address] Sep, COPD (chronic obstructive pulmonary disease) J44.9 ; Tobacco abuse Z72.0 ; Major depressive disorder, recurrent episode F33.9 and Hypercholesterolemia E78.00 [place] [address] [place] [id number] [place] [address]246- 2913 Sep, [place] [address] [address] Sep, Hypercholesterolemia E78.00 [place] [address] [place] [id number] [place] [address] 74427- 3313 Sep, Chronic pain G89.29 ; COPD (chronic obstructive pulmonary disease) J44.9 ; Major depressive disorder, recurrent episode F33.9 ; Post traumatic seizure disorder R56.1 and Hypercholesterolemia E78.00 [place] [address] [place] [id number] [place] [address] 51282- 4394 Sep, Chronic pain G89.29 [place] [address] [place] [address] [id number] [place] [address] 12989- 0463 Aug, Major depressive disorder, recurrent episode F33.9 and Gastroesophageal reflux disease, esophagitis presence not specified K21.9 [facility] [address] [address] Aug, Chronic pain G89.29 [facility] [address] [place] [id number] [place] [address] 96086- 3365 Jul, Other chronic pain G89.29 and Anxiety F41.9 [place] [address] [place] [id number] [place] [address] 00215- 8934 15 Jun, 2017 Chronic pain G89.29 and Seizures R56.9 [place] [address] [address] Jun, Other chronic pain G89.29 and Anxiety F41.9 [place] [address] 052463- [address] May, COPD (chronic obstructive pulmonary disease) J44.9 [place] [address] [address]- [address] May, Other chronic pain G89.29 and Anxiety F41.9 [place] [address] [address]- [address] Apr, Other chronic pain G89.29 and Anxiety F41.9 [place] [address] [place] [id number] [place] [address] 66862- 3118 Mar, Anxiety F41.9 and Other chronic pain G89.29 [place] [address] [place] [id number] [place] [address] 20577- 1550 Feb, [place] [address] [place] [address] [id number] [place] [address] 03302- 1118 Feb, Anxiety F41.9 and Other chronic pain G89.29 [place] [address] 62292- 74[address] Feb, [place] [address] [place] [id number] [place] [address] 70939- 8848 Feb, COPD (chronic obstructive pulmonary disease) J44.9 ; Sleep apnea due to high altitude G47.31 and Oxygen desaturation during sleep G47.34 [place] [address] [place] [address] 82970- 7211 Jan, Other chronic pain G89.29 and Anxiety F41.9 [place] [address] [place] [id number] [place] [address] 94172- 8600 Jan, [place] [address] [address] [id number] [place] [address] 97581- 8906 Dec, Anxiety F41.9 and Other chronic pain G89.29 [place] [address] [address] [id number] [place] [address] 95972- 0640 Dec, [place] [address] [place] [address] [id number] [place] [address] 80165- 2930 Dec, [place] [address] [address] [id number] [place] [address] 67144- 3937 Dec, Seizures R56.9 ; Chronic pain G89.29 [...] and COPD (chronic obstructive pulmonary disease) J44.9 [place] [address] [place] [address] 45274- 6321 Dec, [place] [address] [place] [id number] [place] [address] 56323- 5784 Dec, [place] [address] [place] [id number] [place] [address] 39527- 8528 Dec, Generalized osteoarthritis M15.9 and Anxiety F41.9 [place] [address] [place] [id number] [place] [address] 02780- 6744 November, Status post shoulder surgery Z98.890 [place] [address] [place] [id number] [place] [address] 39123- 5258 November, Generalized osteoarthritis M15.9 and Anxiety F41.9 [place] [address] [place] [id number] [place] [address] 63798- 2025 Oct, [place] [address] [place] [id number] [place] [address] 50194- 6966 Oct, Bilateral hearing loss, unspecified hearing loss [...] ; Anxiety F41.9 and Environmental allergies Z91.09 [place] [id number] [place] [address] 78785- 9919 Oct, Chronic pain G89.29 and LEROY (generalized anxiety disorder) F41.1 [place] [id number] [place] [address] 24309- 4988 Sep, [place] [address] [place] [id number] [place] [address] 99726- 7493 Sep, Tear of right rotator cuff, unspecified [...] disease) J44.9 and Hearing reduced, bilateral H91.93 [place] [address] [place] [address] 06317- 4325 Sep, LEROY (generalized anxiety disorder) F41.1 [place] [id number] [place] [address] 72855- 8770 Aug, [place] [address] 0[address]- [address] Aug, Tear of right rotator cuff, unspecified tear extent M75.101 [place] [address] [place] [id number] [place] [address] 42704- 0840 Aug, Seizures R56.9 ; Chronic pain G89.29 ; Generalized osteoarthritis M15.9 ; COPD (chronic obstructive pulmonary disease) J44.9 ; LEROY (generalized anxiety disorder) F41.1 ; Gastroesophageal reflux disease, esophagitis presence not specified K21.9 ; Scabies B86 ; Hypercholesterolemia E78.00 ; Irritable bladder N32.89 and Edema, unspecified type R60.9 [place] [address] [place] [id number] [place] [address] 16768- 1904 Jul, Major depressive disorder, recurrent episode F33.9 [place] [address] [place] [id number] [place] [address] 96797- 3703 Jul, Seizures R56.9 ; Hypercholesterolemia E78.00 ; BPH (benign prostatic hyperplasia) N40.0 ; Major depressive disorder, recurrent episode F33.9 and Edema, unspecified type R60.9 [place] [address] [place] [id number] [place] [address] 30040- 4754 Jul, Chronic pain G89.29 and LEROY (generalized anxiety disorder) F41.1 [place] [address] [place] [address] [id number] [place] [address] 10018- 0941 Jul, Seizures R56.9 ; COPD (chronic obstructive pulmonary disease ) J44.9 ; Chronic pain G89.29 ; BPH (benign prostatic hyperplasia) N40.0 ; Generalized osteoarthritis M15.9 ; Major depressive disorder, recurrent episode F33.9 ; ELROY (generalized anxiety disorder) F41.1 ; Hypercholesterolemia E78.00 ; Scabies B86 ; Edema, unspecified type R60.9 ; Environmental allergies Z91.09 ; Gastroesophageal reflux disease, esophagitis presence not specified K21.9 ; Pain in right shoulder M25.511 and Other chronic pain G89.29 [facility] [id number] [place] [address] 85435- 5796 Jun, [facility] [address] [id number] [place] [address] 08760- 3592 May, [facility] [address] [place] [id number] [place] [address] 69204- 3776 Apr, [facility] [address] [place] [address] [id number] [place] [address] 96595- 2113 Apr, Seizures R56.9 ; COPD (chronic obstructive pulmonary disease ) J44.9 ; BPH (benign prostatic hyperplasia) N40.0 ; Chronic pain G89.29 ; Tobacco abuse Z72.0 ; LEROY (generalized anxiety disorder) F41.1 ; Environmental allergies Z91.09 ; Irritable bladder N32.89 and Hypercholesterolemia E78.00 [facility] [id number] [place] [address] 77489- 6050 Mar, [facility] [address] [id number] [place] [address] 28653 2541 Mar, [facility] [id number] [place] [address] 05182- 8316 Mar, [facility] [address] [id number] [place] [address] 80677 2549 Mar, [facility] [address] [id number] [place] [address] 88499- 2058 Feb, [facility] [address] [place] [id number] [place] [address] 74648 2545 Feb, Chronic pain G89.29 [facility] [address] [place] [id number] [place] [address] 29089 2546 Feb, [facility] [address] [id number] [address] 2546 Jan, [facility] [id number] [place] [address] 73070- 7613 Dec, [facility] [id number] [place] [address] 23306- 6469 Dec, [place] [address] 51936- 1537 Dec, Seizures R56.9 ; COPD (chronic obstructive pulmonary disease ) J44.9 ; Chronic pain G89.29 ; BPH (benign prostatic hyperplasia) N40.0 ; Generalized osteoarthritis M15.9 ; Hypercholesterolemia E78.0 ; Overactive bladder N32.81 ; Insomnia, unspecified type G47.00 ; Other depression F32.8 ; Environmental allergies Z91.09 and Gastroesophageal reflux disease, esophagitis presence not specified K21.9 [place] [address] 16629- 5154 November, Chronic pain due to trauma G89.21 and Anxiety F41.9 [place] [address] 96452- 6581 Oct, [place] [address] [place] [id number] [place] [address] 08425- 9633 Sep, [place] [address] 76871- 5533 Sep, [place] [address] [place] [id number] [place] [address] 51088- 7770 Sep, [place] [address] [place] [address] [id number] [place] [address] 25133- 5471 Sep, Seizures R56.9 ; Major depressive disorder, recurrent episode F33.9 and LEROY (generalized anxiety disorder) F41.1 [place] [address] 07084- 7616 Aug, [place] [address] 97467- 0576 Aug, COPD (chronic obstructive pulmonary disease) J44.9 ; Chronic pain G89.29 ; BPH (benign prostatic hyperplasia) N40.0 ; Tobacco abuse Z72.0 ; Generalized osteoarthritis M15.9 ; Seizures R56.9 ; Overactive bladder N32.81 ; Depression F32.9 and Anxiety F41.9 [place] [address] 05254- 9958 Jul, Essential (primary) hypertension I10 ; Pure hypercholesterolemia E78.0 ; Generalized osteoarthrosis, unspecified site 715.00 and 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 [place] [address] [place] [id number] [place] [address] 69567- 7526 Jul, [place] [address] [place] [id number] [place] [address] 26620- 5913 Jul, [place] [address] 82273- 2993 Jun, [place] [address] 84993- 6967 May, [place] [address] [place] [id number] [place] [address] 81503- 9569 Apr, [place] [address] [place] [id number] [place] [address] 88595- 1860 Apr, Seizures R56.9 ; COPD (chronic obstructive pulmonary disease ) J44.9 ; Chronic pain G89.29 ; BPH (benign prostatic hyperplasia) N40.0 ; Tobacco abuse Z72.0 ; Generalized osteoarthritis M15.9 ; Insomnia G47.00 ; Anxiety F41.9 and GERD (gastroesophageal reflux disease) K21.9 [place] [address] [place] [id number] [place] [address] 25083- 0850 Apr, [place] [address] [place] [id number] [place] [address] 50449- 9043 Mar, [place] [address] [place] [id number] [place] [address] 67766- 6540 Feb, Major depression, recurrent 296.30 and Generalized anxiety disorder 300.02 [place] [address] 56583- 9765 Feb, [facility] [address] [address]- 49[address] Feb, [facility] [address] [place] [address] 566721- 2342 Jan, Chronic pain due to injury 338.21 ; Seizures 780.39 ; COPD ( chronic obstructive pulmonary disease) 496 ; BPH (benign prostatic hyperplasia) 600.00 ; Tobacco use disorder 305.1 ; Generalized osteoarthrosis, unspecified site 715.00 ; Anxiety 300.00 ; GERD (gastroesophageal reflux disease) 530.81 and Hypercholesteremia 272.0 [place] [address] [place] [id number] [place] [address] 65603- 6209 Jan, [facility] [address] [place] [id number] [place] [address] 55320- 2437 Jan, [facility] [address] [place] [id number] [place] [address] 44344- 4568 Jan, [facility] [address] [place] [address] 29781- 5152 Jan, Seizures 780.39 ; COPD (chronic obstructive pulmonary disease) 496 ; Chronic pain due to injury 338.21 ; BPH (benign prostatic hyperplasia) 600.00 ; Tobacco use disorder 305.1 ; Generalized osteoarthrosis, unspecified site 715.00 ; Encounter for long-term (current) use of other medications V58.69 ; GERD (gastroesophageal reflux disease) 530.81 ; Hypercholesteremia 272.0 and Depression 311 [facility] [address] [address]- 3892 Jan, [facility] [address] [place] [address] 76754- 1544 Jan, Chronic pain due to injury 338.21 [facility] [address] Dec, [facility] [address] [place] [address] 57693- 6204 Dec, Seizures 780.39 ; COPD (chronic obstructive pulmonary disease) 496 ; Chronic pain due to injury 338.21 ; Environmental allergies V15.09 ; GERD (gastroesophageal reflux disease) 530.81 ; Essential hypertension 401.9 ; Psoriasis 696.1 ; PTSD (post-traumatic stress disorder) 309.81 and Depression (emotion) 311 IMMUNIZATIONS No Known Immunizations SOCIAL HISTORY Never Assessed REASON FOR VISIT Breathing eval to keep Oxygein while he sleeps- [facility] [employer] Activity Details Follow Up 3 Months Reason: VITAL SIGNS Height 67.5 in 2017-03-15 Weight 172.8 lbs 2017-03-15 Temperature 97.7 degrees Fahrenheit 2017-03-15 Heart Rate 101 bpm 2017-03-15 Respiratory Rate 22 2017-03-15 Oximetry 98 % 2017-03-15 BMI 26.66 kg/m2 2017-03-15 Blood pressure systolic 116 mmHg 2017-03-15 Blood pressure diastolic 68 mmHg 2017-03-15 MEDICATIONS Medication Instructions Dosage Frequency Start Date End Date Duration Status Flonase Allergy Relief 50 MCG/ACT Nasally 2 times a day 1-2 spray in each nostril 12h Active Cymbalta 60 mg Orally Once a day 1 capsule 24h Active Tylenol 325 MG Orally every 6 hrs 2 tablets as needed 6h Active Trazodone HCl 100 mg Orally Once a day 1 tablet at bedtime 24h Oct, 30 day(s) Active Abilify 10 mg Orally Once in the morning 1 tablet Active Nebulizer Active Advair Diskus 250-50 MCG/DOSE Inhalation Twice a day 1 puff 12h Feb, Active Potassium Chloride ER 20 MEQ Orally Once a day 24h Not-Taking Keppra 500 mg Orally every 12 hrs 1 tab 12h Oct, Active Lipitor 20 mg Orally Once a day 1 tablet 24h Active Percocet 10-325 MG Orally 3 times a day 1 tablet as needed 8h Jan, 28 days Active Fish Oil 1000 MG Orally Once a day 3 capsule 24h Active Albuterol Sulfate HFA cfc free 90 mcg/inh Inhalation every 4 hrs 2 puffs as needed 4h Active VESIcare 5 mg Orally Once a day 1 tablet 24h 30 days Active Omeprazole 20 mg Orally 2 times a day 1 capsule 12h Active Albuterol Sulfate (2.5 MG/3ML) 0.083% Inhalation 4 times a day 3 ml 6h Oct, Active Benadryl Allergy 25 MG Orally every 6 hrs 1 tablet as needed 6h Active Alprazolam 0.5 MG Orally 2 times a day prn 1 tablet Jul, 28 days Active RESULTS No Results PROCEDURES Procedure Date Ordered Result Body Site MEASURE BLOOD OXYGEN LEVEL Mar 15, 2017 [facility] VISIT ESTABLISHED PATIENT Mar 15, 2017 INSTRUCTIONS MEDICATIONS ADMINISTERED No Known Medications [...] carbon dioxide poisoning 2013 Hospitalization History ED [place]- CP and SOB 10/17/2017
--- OUTSIDE RECORDS SUMMARY | 2018-05-25 14:43 | XMS REPORT ---
Author Author YUMIKO MICHEL [facility] Address [address] [place] [address] Care Team Providers Care Client Architect Name Role Phone YUMIKO MICHEL Unavailable PROBLEMS Type Condition ICD9-CM Code VRC38-XV Code Onset Dates Condition Status SNOMED Code Problem Generalized osteoarthritis M15.9 Active 185887902 Problem LEROY (generalized anxiety disorder) F41.1 Active 55442710 Problem BPH (benign prostatic hyperplasia) N40.0 Active 822139155 Problem COPD (chronic obstructive pulmonary disease) J44.9 Active 88250380 Problem Tobacco abuse Z72.0 Active 54005387 Problem Chronic pain G89.29 Active 53442925 Problem Seizures R56.9 Active 53568230 Problem Post traumatic seizure disorder R56.1 Active 24192666 Problem Gastroesophageal reflux disease, esophagitis presence not specified K21.9 Active 935599362 Problem Irritable bladder N32.89 Active 591445171 Problem Major depressive disorder, recurrent episode F33.9 Active 355569272 Problem Environmental allergies Z91.09 Active 692739179 Problem Hypercholesterolemia E78.00 Active 11473817 ALLERGIES Substance Reaction Event Type Date Status Ultracet headache, "blindness" Drug Allergy Jun, Active Prozac "stops my heart" Drug Allergy Jun, Active Codeine Sulfate agitation Drug Allergy Jun, Active ENCOUNTERS Encounter Location Date Diagnosis [facility] [address] [facility] [id number] [address] November, Chronic pain G89.29 [facility] [id number] [place] [address] 77098- 6766 November, Medicare annual wellness visit, initial Z00.00 ; COPD ( chronic obstructive pulmonary disease) J44.9 ; Major depressive disorder, recurrent episode F33.9 ; Gastroesophageal reflux disease, esophagitis presence not specified K21.9 ; Hypercholesterolemia E78.00 ; Seizures R56.9 ; Chronic pain G89.29 ; BPH (benign prostatic hyperplasia) N40.0 and Encounter for immunization Z23 [place] [id number] [place] [address] 96349- 9919 November, Chronic pain G89.29 [facility] [id number] [place] [address] 48212- 7574 Oct, [place] [id number] [place] [address] 47818- 0804 Oct, Chronic pain G89.29 [facility] [place] [id number] [place] [address] 55904- 6516 Sep, [place] [address] [address]- [address] Sep, COPD (chronic obstructive pulmonary disease) J44.9 ; Tobacco abuse Z72.0 ; Major depressive disorder, recurrent episode F33.9 and Hypercholesterolemia E78.00 [place] [id number] [place] [address] 35384- 5360 Sep, [place] [id number] [place] [address] 19971- 0503 Sep, Hypercholesterolemia E78.00 [place] [id number] [place] [address] 69055- 7556 Sep, Chronic pain G89.29 ; COPD (chronic obstructive pulmonary disease) J44.9 ; Major depressive disorder, recurrent episode F33.9 ; Post traumatic seizure disorder R56.1 and Hypercholesterolemia E78.00 [place] [id number] [place] [address] 48664- 8422 Sep, Chronic pain G89.29 [facility] [id number] [place] [address] 91009- 2766 Aug, Major depressive disorder, recurrent episode F33.9 and Gastroesophageal reflux disease, esophagitis presence not specified K21.9 [facility] [id number] [place] [address] 20431- 8060 Aug, Chronic pain G89.29 [facility] [id number] [place] [address] 20879- 6658 Jul, Other chronic pain G89.29 and Anxiety F41.9 [facility] [id number] [place] [address] 37949- 9260 15 Jun, 2017 Chronic pain G89.29 and Seizures R56.9 [facility] [address] 13912- 1023 Jun, Other chronic pain G89.29 and Anxiety F41.9 [place] [address] 66601- 4740 May, COPD (chronic obstructive pulmonary disease) J44.9 [facility] [id number] [place] [address] 99969- 8004 May, Other chronic pain G89.29 and Anxiety F41.9 [place] [address] 36112- 4562 Apr, Other chronic pain G89.29 and Anxiety F41.9 [facility] [id number] [place] [address] 23759- 8851 Mar, Anxiety F41.9 and Other chronic pain G89.29 [facility] [id number] [place] [address] 23347- 4052 Feb, [place] [id number] [place] [address] 78349- 8386 Feb, Anxiety F41.9 and Other chronic pain G89.29 [facility] [id number] [place] [address] 25827- 6242 Feb, [place] [id number] [place] [address] 88386- 7333 Feb, COPD (chronic obstructive pulmonary disease) J44.9 ; Sleep apnea due to high altitude G47.31 and Oxygen desaturation during sleep G47.34 [place] [id number] [place] [address] 30920- 3984 Jan, Other chronic pain G89.29 and Anxiety F41.9 [facility] [id number] [place] [address] 94268- 1538 Jan, [place] [id number] [place] [address] 97785- 4323 Dec, Anxiety F41.9 and Other chronic pain G89.29 [place] [id number] [place] [address] 77535- 1186 Dec, [place] [id number] [place] [address] 54702- 7153 Dec, [place] [id number] [place] [address] 51816- 2919 Dec, Seizures R56.9 ; Chronic pain G89.29 [...] and COPD (chronic obstructive pulmonary disease) J44.9 [place] [id number] [place] [address] 54185- 7054 Dec, [place] [id number] [place] [address] 00378- 6702 Dec, [place] [id number] [place] [address] 95255- 9031 Dec, Generalized osteoarthritis M15.9 and Anxiety F41.9 [facility] [place] [id number] [place] [address] 17781- 5118 November, Status post shoulder surgery Z98.890 [facility] [place] [id number] [place] [address] 08354- 0704 November, Generalized osteoarthritis M15.9 and Anxiety F41.9 [facility] [place] [id number] [place] [address] 29757- 9841 Oct, [place] [address] 19498- 4455 Oct, Bilateral hearing loss, unspecified hearing loss [...] ; Anxiety F41.9 and Environmental allergies Z91.[address] 96128- 1844 Oct, Chronic pain G89.29 and LEROY (generalized anxiety disorder) F41.1 [place] [id number] [place] [address] 75175- 7808 Sep, [address] 74038- 6185 Sep, Tear of right rotator cuff, unspecified [...] disease) J44.9 and Hearing reduced, bilateral H91.93 [place] [id number] [place] [address] 40306- 3628 Sep, LEROY (generalized anxiety disorder) F41.[address] 26891- 2526 Aug, [place] [id number] [place] [address] 82058- 2100 Aug, Tear of right rotator cuff, unspecified tear extent M75.101 [place] [id number] [place] [address] 86492- 6215 Aug, Seizures R56.9 ; Chronic pain G89.29 ; Generalized osteoarthritis M15.9 ; COPD (chronic obstructive pulmonary disease) J44.9 ; LEROY (generalized anxiety disorder) F41.1 ; Gastroesophageal reflux disease, esophagitis presence not specified K21.9 ; Scabies B86 ; Hypercholesterolemia E78.00 ; Irritable bladder N32.89 and Edema, unspecified type R60.9 [place] [id number] [place] [address] 36460- 3421 Jul, Major depressive disorder, recurrent episode F33.9 [place] [id number] [place] [address] 97993- 6956 Jul, Seizures R56.9 ; Hypercholesterolemia E78.00 ; BPH (benign prostatic hyperplasia) N40.0 ; Major depressive disorder, recurrent episode F33.9 and Edema, unspecified type R60.9 [place] [id number] [place] [address] 78238- 6987 Jul, Chronic pain G89.29 and LEROY (generalized anxiety disorder) F41.1 [place] [id number] [place] [address] 34274- 2284 Jul, Seizures R56.9 ; COPD (chronic obstructive [...] shoulder M25.511 and Other chronic pain G89.29 [facility] [id number] [place] [address] 24371- 5453 Jun, [facility] [id number] [place] [address] 30380- 0912 May, [facility] [id number] [place] [address] 74980- 2446 Apr, [facility] [id number] [place] [address] 23943- 7786 Apr, Seizures R56.9 ; COPD (chronic obstructive pulmonary disease ) J44.9 ; BPH (benign prostatic hyperplasia) N40.0 ; Chronic pain G89.29 ; Tobacco abuse Z72.0 ; LEROY (generalized anxiety disorder) F41.1 ; Environmental allergies Z91.09 ; Irritable bladder N32.89 and Hypercholesterolemia E78.00 [facility] [id number] [place] [address] 90745- 0568 Mar, [facility] [id number] [place] [address] 14347- 1627 Mar, [facility] [id number] [place] [address] 39518- 4736 Mar, [facility] [id number] [place] [address] 07846- 3452 Mar, [facility] [id number] [place] [address] 02687- 7707 Feb, [facility] [id number] [place] [address] 87833- 3711 Feb, Chronic pain G89.29 [facility] [id number] [place] [address] 95061- 2146 Feb, [facility] [id number] [place] [address] 06504- 3497 Jan, [facility] [id number] [place] [address] 14975- 5143 Dec, [place] [id number] [place] [address] 74748- 0615 Dec, [place] [address] 42624- 6481 Dec, Seizures R56.9 ; COPD (chronic obstructive pulmonary disease ) J44.9 ; Chronic pain G89.29 ; BPH (benign prostatic hyperplasia) N40.0 ; Generalized osteoarthritis M15.9 ; Hypercholesterolemia E78.0 ; Overactive bladder N32.81 ; Insomnia, unspecified type G47.00 ; Other depression F32.8 ; Environmental allergies Z91.09 and Gastroesophageal reflux disease, esophagitis presence not specified K21.[address] 07255- 6365 November, Chronic pain due to trauma G89.21 and Anxiety F41.[address] 89703- 8419 Oct, [place] [address] 48527- 9936 Sep, [place] [id number] [place] [address] 92999- 1012 Sep, [place] [address] 52418- 7912 Sep, [place] [id number] [place] [address] 09087- 8368 Sep, Seizures R56.9 ; Major depressive disorder, recurrent episode F33.9 and LEROY (generalized anxiety disorder) F41.1 [place] [id number] [place] [address] 34265- 8829 Aug, [address] 39613- 3253 Aug, COPD (chronic obstructive pulmonary disease) J44.9 ; Chronic pain G89.29 ; BPH (benign prostatic hyperplasia) N40.0 ; Tobacco abuse Z72.0 ; Generalized osteoarthritis M15.9 ; Seizures R56.9 ; Overactive bladder N32.81 ; Depression F32.9 and Anxiety F41.9 [place] [id number] [place] [address] 80175- 7056 Jul, Essential (primary) hypertension I10 ; Pure hypercholesterolemia E78.0 ; Generalized osteoarthrosis, unspecified site 715.00 and Other group home (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 Z79.899 [place] [address] 96186- 9937 Jul, [facility] [id number] [place] [address] 43147- 5416 Jul, [place] [address] 03690- 0576 Jun, [place] [address] 01717- 9649 May, [place] [address] 79775- 7753 Apr, [place] [id number] [place] [address] 99386- 1621 Apr, Seizures R56.9 ; COPD (chronic obstructive pulmonary disease ) J44.9 ; Chronic pain G89.29 ; BPH (benign prostatic hyperplasia) N40.0 ; Tobacco abuse Z72.0 ; Generalized osteoarthritis M15.9 ; Insomnia G47.00 ; Anxiety F41.9 and GERD (gastroesophageal reflux disease) K21.9 [place] [id number] [place] [address] 15400- 4643 Apr, [place] [id number] [place] [address] 34355- 0299 Mar, [place] [address] 79390- 1872 Feb, Major depression, recurrent 296.30 and Generalized anxiety disorder 300.02 [place] [address] 97113- 3222 Feb, [facility] [address] [address]- 6694 Feb, [facility] [id number] [place] [address] 23266- 6489 Jan, Chronic pain due to injury 338.21 ; Seizures 780.39 ; COPD ( chronic obstructive pulmonary disease) 496 ; BPH (benign prostatic hyperplasia) 600.00 ; Tobacco use disorder 305.1 ; Generalized osteoarthrosis, unspecified site 715.00 ; Anxiety 300.00 ; GERD (gastroesophageal reflux disease) 530.81 and Hypercholesteremia 272.0 [facility] [id number] [place] [address] 00314- 4771 Jan, [facility] [id number] [place] [address] 77968- 7743 Jan, [facility] [id number] [place] [address] 98151- 8447 Jan, [facility] [id number] [place] [address] 19658- 4456 Jan, Seizures 780.39 ; COPD (chronic obstructive pulmonary disease) 496 ; Chronic pain due to injury 338.21 ; BPH (benign prostatic hyperplasia) 600.00 ; Tobacco use disorder 305.1 ; Generalized osteoarthrosis, unspecified site 715.00 ; Encounter for long-term (current) use of other medications V58.69 ; GERD (gastroesophageal reflux disease) 530.81 ; Hypercholesteremia 272.0 and Depression 311 [facility] [address] [address]- 4161 Jan, [facility] [address] [address]- 2592 Jan, Chronic pain due to injury 338.21 [facility] [address] [address]- 7095 Dec, [facility] [address] [place] [address] 67389- 7430 Dec, Seizures 780.39 ; COPD (chronic obstructive pulmonary disease) 496 ; Chronic pain due to injury 338.21 ; Environmental allergies V15.09 ; GERD (gastroesophageal reflux disease) 530.81 ; Essential hypertension 401.9 ; Psoriasis 696.1 ; PTSD (post-traumatic stress disorder) 309.81 and Depression (emotion) 311 IMMUNIZATIONS No Known Immunizations SOCIAL HISTORY Never Assessed REASON FOR VISIT Transition of Care----DBennettRN PLAN OF CARE Activity Details Follow Up 3 Months Reason: VITAL SIGNS Height 67.5 in 2017-07-14 Weight 172 lbs 2017-07-14 Temperature 98.1 degrees Fahrenheit 2017-07-14 Heart Rate 70 bpm 2017-07-14 Respiratory Rate 20 2017-07-14 BMI 26.54 kg/m2 2017-07-14 Blood pressure systolic 118 mmHg 2017-07-14 Blood pressure diastolic 84 mmHg 2017-07-14 MEDICATIONS Medication Instructions Dosage Frequency Start Date End Date Duration Status Trazodone HCl 100 mg Orally Once a day 1 tablet at bedtime 24h Oct, 30 day(s) Active Abilify 10 mg Orally Once in the morning 1 tablet Active VESIcare 5 mg Orally Once a day 1 tablet 24h 30 days Active Keppra 500 mg Orally every 12 hrs 1 tab 12h Oct, Active Cymbalta 60 mg Orally Once a day 1 capsule 24h Active Benadryl Allergy 25 MG Orally every 6 hrs 1 tablet as needed 6h Active Percocet 10-325 MG Orally 3 times a day 1 tablet as needed 8h Jun, 28 days Active Albuterol Sulfate (2.5 MG/3ML) 0.083% Inhalation 4 times a day DX: J44.9 USE ONE VIAL PER NEBULIZER FOUR TIMES DAILY 13 Active Flonase Allergy Relief 50 MCG/ACT Nasally 2 times a day 1-2 spray in each nostril 12h Active Albuterol Sulfate HFA cfc free 90 mcg/inh Inhalation every 4 hrs 2 puffs as needed 4h Active Lipitor 20 mg Orally Once a day 1 tablet 24h Active Tylenol 325 MG Orally every 6 hrs 2 tablets as needed 6h Active Alprazolam 0.5 MG Orally 2 times a day prn 1 tablet Jul, 28 days Active Omeprazole 20 mg Orally 2 times a day 1 capsule 12h Active Fish Oil 1000 MG Orally Once a day 3 capsule 24h Active Advair Diskus 250-50 MCG/DOSE Inhalation Twice a day 1 puff 12h 16 Feb, 2017 Active Nebulizer Active Potassium Chloride ER 20 MEQ Orally Once a day 24h Not-Taking RESULTS No Results PROCEDURES Procedure Date Ordered Result Body Site [facility] VISIT ESTABLISHED PATIENT Jul 14, 2017 INSTRUCTIONS MEDICATIONS ADMINISTERED No Known Medications [...] carbon dioxide poisoning 2013 Hospitalization History ED [place]- CP and SOB 10/17/2017
--- OUTSIDE RECORDS SUMMARY | 2018-05-25 14:43 | XMS REPORT ---
Author Author YUMIKO MICHEL [facility] Address [address] [place] [address] Care Team Providers Care Electronic Scale Assembler And Tester Name Role Phone YUMIKO MICHEL Unavailable PROBLEMS Type Condition ICD9-CM Code IBR13-IB Code Onset Dates Condition Status SNOMED Code Problem Generalized osteoarthritis M15.9 Active 857478893 Problem LEROY (generalized anxiety disorder) F41.1 Active 62103107 Problem BPH (benign prostatic hyperplasia) N40.0 Active 075234014 Problem COPD (chronic obstructive pulmonary disease) J44.9 Active 76236994 Problem Tobacco abuse Z72.0 Active 84357903 Problem Chronic pain G89.29 Active 79705236 Problem Seizures R56.9 Active 06201865 Problem Post traumatic seizure disorder R56.1 Active 56568361 Problem Gastroesophageal reflux disease, esophagitis presence not specified K21.9 Active 378304262 Problem Irritable bladder N32.89 Active 667282688 Problem Major depressive disorder, recurrent episode F33.9 Active 609192063 Problem Environmental allergies Z91.09 Active 664305166 Problem Hypercholesterolemia E78.00 Active 13972506 ALLERGIES No Information ENCOUNTERS Encounter Location Date Diagnosis [facility] [id number] [place] [address] 98057- 1944 November, Medicare annual wellness visit, initial Z00.00 ; COPD ( chronic obstructive pulmonary disease) J44.9 ; Major depressive disorder, recurrent episode F33.9 ; Gastroesophageal reflux disease, esophagitis presence not specified K21.9 ; Hypercholesterolemia E78.00 ; Seizures R56.9 ; Chronic pain G89.29 ; BPH (benign prostatic hyperplasia) N40.0 and Encounter for immunization Z23 [facility] [address] [place] [address] 19083- 5700 November, Chronic pain G89.29 [facility] [id number] [place] [address] 40553- 2764 Oct, [facility] [id number] [place] [address] 59187- 0373 Oct, Chronic pain G89.29 [place] [id number] [place] [address] 84824- 2002 Sep, [facility] [id number] [place] [address] 71035- 9328 Sep, COPD (chronic obstructive pulmonary disease) J44.9 ; Tobacco abuse Z72.0 ; Major depressive disorder, recurrent episode F33.9 and Hypercholesterolemia E78.00 [place] [address] 59929- 0211 Sep, [place] [address] 18479- 3242 Sep, Hypercholesterolemia E78.00 [place] [address] 42226- 1843 Sep, Chronic pain G89.29 ; COPD (chronic obstructive pulmonary disease) J44.9 ; Major depressive disorder, recurrent episode F33.9 ; Post traumatic seizure disorder R56.1 and Hypercholesterolemia E78.00 [place] [id number] [place] [address] 77703- 6081 Sep, Chronic pain G89.29 [place] [id number] [place] [address] 96576- 7865 07 Aug, 2017 Major depressive disorder, recurrent episode F33.9 and Gastroesophageal reflux disease, esophagitis presence not specified K21.9 [place] [id number] [place] [address] 20229- 8194 Aug, Chronic pain G89.29 [place] [id number] [place] [address] 09671- 0680 Jul, Other chronic pain G89.29 and Anxiety F41.9 [place] [id number] [place] [address] 24497- 0475 Jun, Chronic pain G89.29 and Seizures R56.9 [facility] [id number] [place] [address] 73529- 3557 Jun, Other chronic pain G89.29 and Anxiety F41.9 [facility] [id number] [place] [address] 14805- 5072 May, COPD (chronic obstructive pulmonary disease) J44.9 [facility] [address] 01781- 4555 May, Other chronic pain G89.29 and Anxiety F41.9 [place] [address] 93674- 7024 Apr, Other chronic pain G89.29 and Anxiety F41.9 [place] [address] 37060- 7751 Mar, Anxiety F41.9 and Other chronic pain G89.29 [facility] [address] 04552- 1034 Feb, [facility] [address] 70702- 9741 Feb, Anxiety F41.9 and Other chronic pain G89.29 [place] [id number] [place] [address] 52987- 0906 Feb, [facility] [address] 15836- 8311 Feb, COPD (chronic obstructive pulmonary disease) J44.9 ; Sleep apnea due to high altitude G47.31 and Oxygen desaturation during sleep G47.34 [place] [id number] [place] [address] 95125- 8695 Jan, Other chronic pain G89.29 and Anxiety F41.9 [facility] [id number] [place] [address] 92435- 1867 Jan, [facility] [address] [place] [address]- 7206 29 Dec, 2016 Anxiety F41.9 and Other chronic pain G89.29 [facility] [id number] [place] [address] 28369- 3327 16 Dec, 2016 [facility] [id number] [place] [address] 04602- 5272 08 Dec, 2016 [facility] [id number] [place] [address] 78621- 0210 Dec, Seizures R56.9 ; Chronic pain G89.29 [...] and COPD (chronic obstructive pulmonary disease) J44.9 [place] [id number] [place] [address] 30409- 9589 Dec, [place] [id number] [place] [address] 69254- 4248 Dec, [facility] [id number] [place] [address] 44869- 3082 Dec, Generalized osteoarthritis M15.9 and Anxiety F41.9 [place] [id number] [place] [address] 40966- 0754 November, Status post shoulder surgery Z98.890 [facility] [id number] [place] [address] 57897- 7923 November, Generalized osteoarthritis M15.9 and Anxiety F41.9 [facility] [id number] [place] [address] 64975- 1902 Oct, [facility] [id number] [place] [address] 58821- 1737 Oct, Bilateral hearing loss, unspecified hearing loss [...] ; Anxiety F41.9 and Environmental allergies Z91.09 [place] [address] 67281- 5007 Oct, Chronic pain G89.29 and LEROY (generalized anxiety disorder) F41.1 [place] [address] 50373- 2538 Sep, [address] 73448- 8377 Sep, Tear of right rotator cuff, unspecified [...] disease) J44.9 and Hearing reduced, bilateral H91.93 [place] [id number] [place] [address] 90234- 7734 Sep, LEROY (generalized anxiety disorder) F41.1 [place] [address] 41379- 4568 Aug, [place] [address] 54816- 5926 Aug, Tear of right rotator cuff, unspecified tear extent M75.101 [place] [address] 06354- 5617 Aug, Seizures R56.9 ; Chronic pain G89.29 ; Generalized osteoarthritis M15.9 ; COPD (chronic obstructive pulmonary disease) J44.9 ; LEROY (generalized anxiety disorder) F41.1 ; Gastroesophageal reflux disease, esophagitis presence not specified K21.9 ; Scabies B86 ; Hypercholesterolemia E78.00 ; Irritable bladder N32.89 and Edema, unspecified type R60.9 [place] [id number] [place] [address] 15908- 9068 Jul, Major depressive disorder, recurrent episode F33.9 [place] [id number] [place] [address] 72327- 5566 Jul, Seizures R56.9 ; Hypercholesterolemia E78.00 ; BPH (benign prostatic hyperplasia) N40.0 ; Major depressive disorder, recurrent episode F33.9 and Edema, unspecified type R60.9 [place] [id number] [place] [address] 90165- 9607 Jul, Chronic pain G89.29 and LEROY (generalized anxiety disorder) F41.1 [place] [id number] [place] [address] 32850- 4374 Jul, Seizures R56.9 ; COPD (chronic obstructive [...] shoulder M25.511 and Other chronic pain G89.29 [place] [id number] [place] [address] 82724- 9503 Jun, [place] [id number] [place] [address] 50041- 9373 May, [place] [id number] [place] [address] 32685- 0917 Apr, [facility] [id number] [place] [address] 02022 2544 Apr, Seizures R56.9 ; COPD (chronic obstructive pulmonary disease ) J44.9 ; BPH (benign prostatic hyperplasia) N40.0 ; Chronic pain G89.29 ; Tobacco abuse Z72.0 ; LEROY (generalized anxiety disorder) F41.1 ; Environmental allergies Z91.09 ; Irritable bladder N32.89 and Hypercholesterolemia E78.00 [facility] [id number] [place] [address] 07088 2546 Mar, [facility] [id number] [place] [address] 50998 2546 Mar, [facility] [id number] [place] [address] 83334 2546 Mar, [facility] [id number] [place] [address] 93040 2546 Mar, [facility] [id number] [place] [address] 99480 2547 Feb, [facility] [id number] [place] [address] 36510 2546 Feb, Chronic pain G89.29 [facility] [id number] [place] [address] 99909 2546 Feb, [facility] [id number] [place] [address] 88645 2546 Jan, [facility] [address] [place] [address] 15637 2546 Dec, [facility] [id number] [place] [address] 45118 2546 Dec, [facility] [id number] [place] [address] 03475 2546 Dec, Seizures R56.9 ; COPD (chronic obstructive pulmonary disease ) J44.9 ; Chronic pain G89.29 ; BPH (benign prostatic hyperplasia) N40.0 ; Generalized osteoarthritis M15.9 ; Hypercholesterolemia E78.0 ; Overactive bladder N32.81 ; Insomnia, unspecified type G47.00 ; Other depression F32.8 ; Environmental allergies Z91.09 and Gastroesophageal reflux disease, esophagitis presence not specified K21.9 [place] [id number] [place] [address] 95450- 4927 November, Chronic pain due to trauma G89.21 and Anxiety F41.9 [place] [id number] [place] [address] 37810- 2543 Oct, [place] [address] 16301- 2712 Sep, [place] [id number] [place] [address] 59263- 8451 Sep, [address] 75703- 2628 Sep, [place] [id number] [place] [address] 90613- 3109 Sep, Seizures R56.9 ; Major depressive disorder, recurrent episode F33.9 and LEROY (generalized anxiety disorder) F41.1 [place] [id number] [place] [address] 00179- 8216 Aug, [place] [id number] [place] [address] 06619- 9479 Aug, COPD (chronic obstructive pulmonary disease) J44.9 ; Chronic pain G89.29 ; BPH (benign prostatic hyperplasia) N40.0 ; Tobacco abuse Z72.0 ; Generalized osteoarthritis M15.9 ; Seizures R56.9 ; Overactive bladder N32.81 ; Depression F32.9 and Anxiety F41.9 [address] [place] [address] 49655- 1814 Jul, Essential (primary) hypertension I10 ; Pure hypercholesterolemia E78.0 ; Generalized osteoarthrosis, unspecified site 715.00 and Other custodial (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 Z79.899 [facility] [id number] [place] [address] 63513- 0081 Jul, [facility] [id number] [place] [address] 06799- 1651 Jul, [facility] [id number] [place] [address] 60256- 6096 Jun, [facility] [address] 58538- 8797 May, [facility] [address] 14243- 7952 Apr, [facility] [address] 83158- 4245 Apr, Seizures R56.9 ; COPD (chronic obstructive pulmonary disease ) J44.9 ; Chronic pain G89.29 ; BPH (benign prostatic hyperplasia) N40.0 ; Tobacco abuse Z72.0 ; Generalized osteoarthritis M15.9 ; Insomnia G47.00 ; Anxiety F41.9 and GERD (gastroesophageal reflux disease) K21.9 [facility] [address] 66523- 7081 Apr, [facility] [id number] [place] [address] 84921- 9961 Mar, [facility] [id number] [place] [address] 85054- 0399 Feb, Major depression, recurrent 296.30 and Generalized anxiety disorder 300.02 [facility] [id number] [place] [address] 72217- 0757 Feb, [facility] [address] 24011- 0173 Feb, [facility] [id number] [place] [address] 27244- 2168 Jan, Chronic pain due to injury 338.21 ; Seizures 780.39 ; COPD ( chronic obstructive pulmonary disease) 496 ; BPH (benign prostatic hyperplasia) 600.00 ; Tobacco use disorder 305.1 ; Generalized osteoarthrosis, unspecified site 715.00 ; Anxiety 300.00 ; GERD (gastroesophageal reflux disease) 530.81 and Hypercholesteremia 272.0 [place] [address] [place] [address] [id number]- 3383 Jan, [place] [id number] [place] [address] 91577- 2349 Jan, [place] [id number] [place] [address] 93070- 9547 Jan, [place] [id number] [place] [address] 85029- 7788 Jan, Seizures 780.39 ; COPD (chronic obstructive pulmonary disease) 496 ; Chronic pain due to injury 338.21 ; BPH (benign prostatic hyperplasia) 600.00 ; Tobacco use disorder 305.1 ; Generalized osteoarthrosis, unspecified site 715.00 ; Encounter for long-term (current) use of other medications V58.69 ; GERD (gastroesophageal reflux disease) 530.81 ; Hypercholesteremia 272.0 and Depression [id number] [place] [address] 05008- 8388 Jan, [place] [id number] [place] [address] 80012- 1973 Jan, Chronic pain due to injury 338.21 [place] [id number] [place] [address] 28642- 0973 Dec, [place] [id number] [place] [address] 86957- 0486 Dec, Seizures 780.39 ; COPD (chronic obstructive pulmonary disease) 496 ; Chronic pain due to injury 338.21 ; Environmental allergies V15.09 ; GERD (gastroesophageal reflux disease) 530.81 ; Essential hypertension 401.9 ; Psoriasis 696.1 ; PTSD (post-traumatic stress disorder) 309.81 and Depression (emotion) 311 IMMUNIZATIONS No Known Immunizations SOCIAL HISTORY Never Assessed REASON FOR VISIT Controlled Refill Request PLAN OF CARE VITAL SIGNS MEDICATIONS Medication Instructions Dosage Frequency Start Date End Date Duration Status Alprazolam 0.5 MG Orally 2 times a day prn 1 tablet Jul, 28 days Active Percocet 10-325 MG Orally 3 times a day 1 tablet as needed 8h May, 28 days Active RESULTS No Results PROCEDURES [...] dioxide poisoning 2013 Hospitalization History [facility]- CP and SOB 10/17/2017
--- OUTSIDE RECORDS SUMMARY | 2018-05-25 14:44 | XMS REPORT ---
Author Author JESUS PERERA [facility] Address [address] [place] [address] Care Team Providers Care Casting Repairer Name Role Phone JESUS PERERA Unavailable PROBLEMS Type Condition ICD9-CM Code GRO98-AG Code Onset Dates Condition Status SNOMED Code Problem Generalized osteoarthritis M15.9 Active 323433090 Problem LEROY (generalized anxiety disorder) F41.1 Active 29163843 Problem BPH (benign prostatic hyperplasia) N40.0 Active 819468930 Problem COPD (chronic obstructive pulmonary disease) J44.9 Active 96602451 Problem Tobacco abuse Z72.0 Active 07515856 Problem Chronic pain G89.29 Active 10793146 Problem Seizures R56.9 Active 68480796 Problem Post traumatic seizure disorder R56.1 Active 67042288 Problem Gastroesophageal reflux disease, esophagitis presence not specified K21.9 Active 267093191 Problem Irritable bladder N32.89 Active 036496376 Problem Major depressive disorder, recurrent episode F33.9 Active 069180882 Problem Environmental allergies Z91.09 Active 889773296 Problem Hypercholesterolemia E78.00 Active 79188439 ALLERGIES No Information ENCOUNTERS Encounter Location Date Diagnosis [facility] [place] [address] [address] Jan, [facility] [place] [id number] [place] [address] 54648- 6903 Dec, Chronic pain G89.29 [facility] [place] [address] [place] [address] 67953- 7433 Dec, Anxiety F41.9 and COPD (chronic obstructive pulmonary disease) J44.9 [facility] [place] [address] [place] [address] 19044- 1479 November, Chronic pain G89.29 [facility] [place] [id number] [place] [address] 79648- 5774 November, Medicare annual wellness visit, initial Z00.00 ; COPD ( chronic obstructive pulmonary disease) J44.9 ; Major depressive disorder, recurrent episode F33.9 ; Gastroesophageal reflux disease, esophagitis presence not specified K21.9 ; Hypercholesterolemia E78.00 ; Seizures R56.9 ; Chronic pain G89.29 ; BPH (benign prostatic hyperplasia) N40.0 and Encounter for immunization Z23 [facility] [place] [address] [address] November, Chronic pain G89.29 [place] [address] 95117- 9671 Oct, [place] [address] 14510- 6712 Oct, Chronic pain G89.29 [place] [id number] [place] [address] 73596- 1693 Sep, [facility] [place] [address] 26418- 5754 Sep, COPD (chronic obstructive pulmonary disease) J44.9 ; Tobacco abuse Z72.0 ; Major depressive disorder, recurrent episode F33.9 and Hypercholesterolemia E78.00 [facility] [place] [id number] [place] [address] 30373- 6874 Sep, [facility] [place] [id number] [place] [address] 11406- 4237 Sep, Hypercholesterolemia E78.00 [facility] [place] [id number] [place] [address] 94818- 9711 Sep, Chronic pain G89.29 ; COPD (chronic obstructive pulmonary disease) J44.9 ; Major depressive disorder, recurrent episode F33.9 ; Post traumatic seizure disorder R56.1 and Hypercholesterolemia E78.00 [facility] [place] [id number] [place] [address] 45109- 0222 Sep, Chronic pain G89.29 [facility] [place] [address] [place] [address] 07 Aug, 2017 Major depressive disorder, recurrent episode F33.9 and Gastroesophageal reflux disease, esophagitis presence not specified K21.9 [facility] [place] [address] 19084- 3447 06 Aug, 2017 Chronic pain G89.29 [place] [address] 12599- 1132 Jul, Other chronic pain G89.29 and Anxiety F41.9 [place] [address] 61161- 4086 15 Jun, 2017 Chronic pain G89.29 and Seizures R56.9 [place] [address] 47389- 0724 Jun, Other chronic pain G89.29 and Anxiety F41.9 [place] [address] 87490- 1379 May, COPD (chronic obstructive pulmonary disease) J44.9 [place] [address] 05629- 9154 May, Other chronic pain G89.29 and Anxiety F41.9 [place] [id number] [place] [address] 20052- 2527 Apr, Other chronic pain G89.29 and Anxiety F41.9 [place] [id number] [place] [address] 54433- 2481 Mar, Anxiety F41.9 and Other chronic pain G89.29 [place] [id number] [place] [address] 32926- 8620 Feb, [place] [address] 27040- 3920 Feb, Anxiety F41.9 and Other chronic pain G89.29 [place] [address] 93330- 6231 Feb, [place] [id number] [place] [address] 20024- 9189 Feb, COPD (chronic obstructive pulmonary disease) J44.9 ; Sleep apnea due to high altitude G47.31 and Oxygen desaturation during sleep G47.34 [place] [id number] [place] [address] 96135- 3644 Jan, Other chronic pain G89.29 and Anxiety F41.9 [place] [address] 06438- 0412 Jan, [address] 39136- 5501 Dec, Anxiety F41.9 and Other chronic pain G89.29 [place] [address] 82603- 5790 Dec, [address] 58894- 4131 Dec, [place] [address] 51168- 8233 Dec, Seizures R56.9 ; Chronic pain G89.29 [...] (chronic obstructive pulmonary disease) J44.9 [place] [id number] [place] [address] 44400- 2751 Dec, [place] [address] 14765- 9306 Dec, [place] [id number] [place] [address] 98600- 5890 Dec, Generalized osteoarthritis M15.9 and Anxiety F41.9 [place] [address] [place] [address] 84551- 0096 November, Status post shoulder surgery Z98.890 [place] [id number] [place] [address] 61736- 7458 November, Generalized osteoarthritis M15.9 and Anxiety F41.9 [place] [id number] [place] [address] 28368- 1553 Oct, [place] [id number] [place] [address] 42958- 8680 Oct, Bilateral hearing loss, unspecified hearing loss [...] ; Anxiety F41.9 and Environmental allergies Z91.09 [place] [id number] [place] [address] 75777- 3250 Oct, Chronic pain G89.29 and LEROY (generalized anxiety disorder) F41.1 [place] [id number] [place] [address] 32474- 1329 Sep, [place] [id number] [place] [address] 13232- 5090 Sep, Tear of right rotator cuff, unspecified [...] and Hearing reduced, bilateral H91.93 [place] [id number] [place] [address] 05344- 0945 Sep, LEROY (generalized anxiety disorder) F41.1 [place] [id number] [place] [address] 69515- 3797 Aug, [address] 50048- 3944 Aug, Tear of right rotator cuff, unspecified tear extent M75.101 [place] [id number] [place] [address] 94493- 3064 Aug, Seizures R56.9 ; Chronic pain G89.29 ; Generalized osteoarthritis M15.9 ; COPD (chronic obstructive pulmonary disease) J44.9 ; LEROY (generalized anxiety disorder) F41.1 ; Gastroesophageal reflux disease, esophagitis presence not specified K21.9 ; Scabies B86 ; Hypercholesterolemia E78.00 ; Irritable bladder N32.89 and Edema, unspecified type R60.9 [place] [id number] [place] [address] 24096- 6236 Jul, Major depressive disorder, recurrent episode F33.9 [place] [id number] [place] [address] 20588- 3224 Jul, Seizures R56.9 ; Hypercholesterolemia E78.00 ; BPH (benign prostatic hyperplasia) N40.0 ; Major depressive disorder, recurrent episode F33.9 and Edema, unspecified type R60.9 [place] [id number] [place] [address] 24082- 1792 Jul, Chronic pain G89.29 and LEROY (generalized anxiety disorder) F41.1 [place] [id number] [place] [address] 59801- 4255 Jul, Seizures R56.9 ; COPD (chronic obstructive [...] and Other chronic pain G89.29 [place] [address] 09799- 6038 Jun, [place] [address] 18874- 9534 May, [place] [address] 95552- 9399 Apr, [place] [address] 29469- 8613 Apr, Seizures R56.9 ; COPD (chronic obstructive pulmonary disease ) J44.9 ; BPH (benign prostatic hyperplasia) N40.0 ; Chronic pain G89.29 ; Tobacco abuse Z72.0 ; LEROY (generalized anxiety disorder) F41.1 ; Environmental allergies Z91.09 ; Irritable bladder N32.89 and Hypercholesterolemia E78.00 [place] [address] 62015- 0953 Mar, [place] [id number] [place] [address] 05235- 6771 Mar, [place] [id number] [place] [address] 12359- 7923 Mar, [place] [id number] [place] [address] 77156- 5317 Mar, [place] [address] 73224- 3567 Feb, [place] [id number] [place] [address] 16905- 3446 Feb, Chronic pain G89.29 [place] [address] 94207- 1783 Feb, [facility] [place] [id number] [place] [address] 20219- 7994 Jan, [facility] [place] [address] 46452- 3828 Dec, [place] [address] 63815- 0603 Dec, [place] [address] 05328- 0813 Dec, Seizures R56.9 ; COPD (chronic obstructive pulmonary disease ) J44.9 ; Chronic pain G89.29 ; BPH (benign prostatic hyperplasia) N40.0 ; Generalized osteoarthritis M15.9 ; Hypercholesterolemia E78.0 ; Overactive bladder N32.81 ; Insomnia, unspecified type G47.00 ; Other depression F32.8 ; Environmental allergies Z91.09 and Gastroesophageal reflux disease, esophagitis presence not specified K21.9 [place] [address] 04765- 3975 November, Chronic pain due to trauma G89.21 and Anxiety F41.[address] 26441- 7843 Oct, [place] [id number] [place] [address] 69565- 7570 Sep, [place] [id number] [place] [address] 30312- 4594 Sep, [place] [id number] [place] [address] 23692- 9594 Sep, [place] [address] 10694- 9866 Sep, Seizures R56.9 ; Major depressive disorder, recurrent episode F33.9 and LEROY (generalized anxiety disorder) F41.1 [place] [id number] [place] [address] 08837- 2088 Aug, [place] [id number] [place] [address] 30736- 7833 Aug, COPD (chronic obstructive pulmonary disease) J44.9 ; Chronic pain G89.29 ; BPH (benign prostatic hyperplasia) N40.0 ; Tobacco abuse Z72.0 ; Generalized osteoarthritis M15.9 ; Seizures R56.9 ; Overactive bladder N32.81 ; Depression F32.9 and Anxiety F41.9 [place] [address] 45238- 6106 Jul, Essential (primary) hypertension I10 ; Pure hypercholesterolemia E78.0 ; Generalized osteoarthrosis, unspecified site 715.00 and Other terminal manager (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 Z79.899 [place] [id number] [place] [address] 87777- 8599 Jul, [place] [address] 48337- 2718 Jul, [place] [address] 39928- 9291 Jun, [place] [address] 23612- 4680 May, [place] [id number] [place] [address] 92643- 7214 Apr, [place] [id number] [place] [address] 77683- 1846 Apr, Seizures R56.9 ; COPD (chronic obstructive pulmonary disease ) J44.9 ; Chronic pain G89.29 ; BPH (benign prostatic hyperplasia) N40.0 ; Tobacco abuse Z72.0 ; Generalized osteoarthritis M15.9 ; Insomnia G47.00 ; Anxiety F41.9 and GERD (gastroesophageal reflux disease) K21.9 [facility] [place] [id number] [place] [address] 73219- 9038 Apr, [place] [id number] [place] [address] 45696- 2766 Mar, [facility] [place] [address] [place] [address] 16814- 2829 Feb, Major depression, recurrent 296.30 and Generalized anxiety disorder 300.02 [facility] [place] [id number] [place] [address] 40105- 6238 Feb, [facility] [place] [id number] [place] [address] 94436- 4942 Feb, [facility] [place] [id number] [place] [address] 53953- 9074 Jan, Chronic pain due to injury 338.21 ; Seizures 780.39 ; COPD ( chronic obstructive pulmonary disease) 496 ; BPH (benign prostatic hyperplasia) 600.00 ; Tobacco use disorder 305.1 ; Generalized osteoarthrosis, unspecified site 715.00 ; Anxiety 300.00 ; GERD (gastroesophageal reflux disease) 530.81 and Hypercholesteremia 272.0 [place] [id number] [place] [address] 99749- 1229 Jan, [facility] [place] [id number] [place] [address] 20734- 4110 Jan, [place] [id number] [place] [address] 75135- 7758 Jan, [facility] [place] [address] [place] [address] 09767- 7778 Jan, Seizures 780.39 ; COPD (chronic obstructive pulmonary disease) 496 ; Chronic pain due to injury 338.21 ; BPH (benign prostatic hyperplasia) 600.00 ; Tobacco use disorder 305.1 ; Generalized osteoarthrosis, unspecified site 715.00 ; Encounter for long-term (current) use of other medications V58.69 ; GERD (gastroesophageal reflux disease) 530.81 ; Hypercholesteremia 272.0 and Depression 311 [facility] [place] [address] [place] [address] 67424- 8662 Jan, [facility] [place] [id number] [place] [address] 61457- 4007 Jan, Chronic pain due to injury 338.21 [facility] [place] [address] [facility] [id number] [address]- 4831 Dec, [facility] [place] [address] [facility] [id number] [place] [address]226[address]- 4771 Dec, Seizures 780.39 ; COPD (chronic obstructive pulmonary disease) 496 ; Chronic pain due to injury 338.21 ; Environmental allergies V15.09 ; GERD (gastroesophageal reflux disease) 530.81 ; Essential hypertension 401.9 ; Psoriasis 696.1 ; PTSD (post-traumatic stress disorder) 309.81 and Depression (emotion) 311 IMMUNIZATIONS No Known Immunizations SOCIAL HISTORY Never Assessed REASON FOR VISIT Oxycodone and alprazolam- 09/08 PLAN OF CARE VITAL SIGNS MEDICATIONS Medication Instructions Dosage Frequency Start Date End Date Duration Status Percocet 10-325 MG Orally 3 times a day 1 tablet as needed 8h Aug, 28 days Active Alprazolam 0.5 MG [...] dioxide poisoning 2013 Hospitalization History [facility]- CP and SOB 10/17/2017
[2018-05-25 14:45] LABS: BASOPHILS % (AUTO) 0 % (0-10); EOSINOPHILS # (AUTO) 0.1 10^3/uL (0.0-0.3); EOSINOPHILS % (AUTO) 1 % (0-10); HEMATOCRIT 47 % (40-54); HEMOGLOBIN 16.2 G/DL (13.3-17.7); LYMPHOCYTES # (AUTO) 2.9 X 10^3 (1.0-4.0); LYMPHOCYTES % (AUTO) 34 % (12-44); MEAN CORPUSCULAR HEMOGLOBIN 30 PG (25-34); MEAN CORPUSCULAR HGB CONC 35 G/DL (32-36); MEAN CORPUSCULAR VOLUME 86 FL (80-99); MEAN PLATELET VOLUME 9.4 FL (7.4-10.4); MONOCYTES # (AUTO) 0.9 X 10^3 (0.0-1.0); MONOCYTES % (AUTO) 10 % (0-12); NEUTROPHILS # (AUTO) 4.6 X 10^3 (1.8-7.8); NEUTROPHILS % (AUTO) 55 % (42-75); PLATELET COUNT 296 10^3/uL (130-400); RED BLOOD COUNT 5.45 10^6/uL (4.35-5.85); RED CELL DISTRIBUTION WIDTH 14.3 % (10.0-14.5); WHITE BLOOD COUNT 8.4 10^3/uL (4.3-11.0)
[2018-05-25] MEDS ORDERED: NITROGLYCERIN 0.4 MG SL TABS BTL 25'S SL PRN (14:45)
[2018-05-25] MEDS ORDERED: ASPIRIN 81 MG CHEW (CHILDREN'S ASA) PO ONE (14:45)
--- OUTSIDE RECORDS SUMMARY | 2018-05-25 14:45 | XMS REPORT ---
Author Author KAYLYNN Rabago Organization [facility] Address [address] [place] [address] Care Team Providers Care Graphic Technician Name Role Phone Hima KAYLYNN Unavailable PROBLEMS Type Condition ICD9-CM Code PAX37-NQ Code Onset Dates Condition Status SNOMED Code Problem Generalized osteoarthritis M15.9 Active 572339797 Problem LEROY (generalized anxiety disorder) F41.1 Active 08567672 Problem BPH (benign prostatic hyperplasia) N40.0 Active 440010690 Problem COPD (chronic obstructive pulmonary disease) J44.9 Active 32909028 Problem Tobacco abuse Z72.0 Active 55546008 Problem Chronic pain G89.29 Active 00516821 Problem Seizures R56.9 Active 76343548 Problem Post traumatic seizure disorder R56.1 Active 40261963 Problem Gastroesophageal reflux disease, esophagitis presence not specified K21.9 Active 161136256 Problem Irritable bladder N32.89 Active 198727633 Problem Major depressive disorder, recurrent episode F33.9 Active 272630299 Problem Environmental allergies Z91.09 Active 898950598 Problem Hypercholesterolemia E78.00 Active 04387146 ALLERGIES No Information ENCOUNTERS Encounter Location Date Diagnosis [facility] [address], [place] [address] November, Medicare annual wellness visit, initial Z00.00 [facility] [address], [place] [address] Sep, [facility] [id number] [place] [address] 61539- 7907 Sep, COPD (chronic obstructive pulmonary disease) J44.9 ; Tobacco abuse Z72.0 ; Major depressive disorder, recurrent episode F33.[address] [facility] [id number] [place] [address] 01612- 1021 Sep, [facility] [id number] [place] [address] 53589- 8941 Sep, Hypercholesterolemia E78.00 [facility] [id number] [place] [address] 07703- 9150 Sep, Chronic pain G89.29 ; COPD (chronic obstructive pulmonary disease) J44.9 ; Major depressive disorder, recurrent episode F33.9 ; Post traumatic seizure disorder R56.1 and Hypercholesterolemia E78.00 [facility] [id number] [place] [address] 16345- 3425 Sep, Chronic pain G89.29 [place] [facility] [address] [address]99- [address] 07 Aug, 2017 Major depressive disorder, recurrent episode F33.9 and Gastroesophageal reflux disease, esophagitis presence not specified K21.9 [place] [facility] [address] 6[address]- 6330 Aug, Chronic pain G89.29 [facility] [id number] [place] [address] 40523- 4094 Jul, Other chronic pain G89.29 and Anxiety F41.9 [facility] [id number] [place] [address] 25639- 8469 15 Jun, 2017 Chronic pain G89.29 and Seizures R56.9 [facility] [id number] [place] [address] 21875- 4073 Jun, Other chronic pain G89.29 and Anxiety F41.9 [facility] [id number] [place] [address] 46669- 5861 May, COPD (chronic obstructive pulmonary disease) J44.9 [facility] [id number] [place] [address] 80414- 5345 16 May, 2017 Other chronic pain G89.29 and Anxiety F41.9 [facility] [id number] [place] [address] 08956- 9519 Apr, Other chronic pain G89.[address] [facility] [id number] [place] [address] 67569- 6330 Mar, Anxiety F41.9 and Other chronic pain G89.29 [facility] [id number] [place] [address] 84742- 3084 Feb, [facility] [facility] [id number] [place] [address] 35377- 5941 Feb, Anxiety F41.9 and Other chronic pain G89.29 [facility] [id number] [place] [address] 93172- 0114 Feb, [facility] [id number] [place] [address] 60702- 1249 Feb, COPD (chronic obstructive pulmonary disease) J44.9 ; Sleep apnea due to high altitude G47.31 and Oxygen desaturation during sleep G47.34 [facility] [id number] [place] [address] 41667- 2826 Jan, Other chronic pain G89.29 and Anxiety F41.9 [facility] [id number] [place] [address] 00605- 7003 Jan, [facility] [id number] [place] [address] 95495- 1904 Dec, Anxiety F41.9 and Other chronic pain G89.29 [place] [address] [place] [address] 56890- 9575 Dec, [facility] [id number] [place] [address] 67753- 2858 Dec, [facility] [id number] [place] [address] 89249- 8399 Dec, Seizures R56.9 ; Chronic pain G89.29 [...] and COPD (chronic obstructive pulmonary disease) J44.9 [facility] [id number] [place] [address] 31654- 2850 Dec, [place] [address] 78719- 2905 Dec, [place] [address] 77101- 3332 Dec, Generalized osteoarthritis M15.9 and Anxiety F41.9 [place] [address] 05005- 6716 November, Status post shoulder surgery Z98.890 [facility] [facility] [address] 97686- 2608 November, Generalized osteoarthritis M15.9 and Anxiety F41.9 [facility] [address] 73251- 9638 Oct, [place] [address] 80595- 5142 Oct, Bilateral hearing loss, unspecified hearing loss [...] ; Anxiety F41.9 and Environmental allergies Z91.09 [facility] [id number] [place] [address] 59947- 3205 Oct, Chronic pain G89.29 and LEROY (generalized anxiety disorder) F41.1 [facility] [id number] [place] [address] 07116- 0601 Sep, [place] [address] 63231- 2861 Sep, Tear of right rotator cuff, unspecified [...] disease) J44.9 and Hearing reduced, bilateral H91.93 [facility] [id number] [place] [address] 57797- 8990 Sep, LEROY (generalized anxiety disorder) F41.1 [place] [address] 97676- 5448 Aug, [place] [address] 72841- 2434 Aug, Tear of right rotator cuff, unspecified tear extent M75.101 [facility] [id number] [place] [address] 72266- 1229 Aug, Seizures R56.9 ; Chronic pain G89.29 ; Generalized osteoarthritis M15.9 ; COPD (chronic obstructive pulmonary disease) J44.9 ; LEROY (generalized anxiety disorder) F41.1 ; Gastroesophageal reflux disease, esophagitis presence not specified K21.9 ; Scabies B86 ; Hypercholesterolemia E78.00 ; Irritable bladder N32.89 and Edema, unspecified type R60.9 [facility] [id number] [place] [address] 21842- 6035 Jul, Major depressive disorder, recurrent episode F33.9 [facility] [id number] [place] [address] 09553- 4208 Jul, Seizures R56.9 ; Hypercholesterolemia E78.00 ; BPH (benign prostatic hyperplasia) N40.0 ; Major depressive disorder, recurrent episode F33.9 and Edema, unspecified type R60.9 [facility] [id number] [place] [address] 69890- 1738 Jul, Chronic pain G89.29 and LEROY (generalized anxiety disorder) F41.[address] 43856- 0905 Jul, Seizures R56.9 ; COPD (chronic obstructive [...] shoulder M25.511 and Other chronic pain G89.29 [place] [address] 23325- 4829 Jun, [address] 49571- 5221 May, [place] [address] 64641- 2742 Apr, [address] 98573- 4721 Apr, Seizures R56.9 ; COPD (chronic obstructive pulmonary disease ) J44.9 ; BPH (benign prostatic hyperplasia) N40.0 ; Chronic pain G89.29 ; Tobacco abuse Z72.0 ; LEROY (generalized anxiety disorder) F41.1 ; Environmental allergies Z91.09 ; Irritable bladder N32.89 and Hypercholesterolemia E78.00 [facility] [id number] [place] [address] 87684- 2401 Mar, [address] 23440- 3649 Mar, [facility] [id number] [place] [address] 50740- 0316 Mar, [facility] [id number] [place] [address] 48205- 0422 Mar, [facility] [id number] [place] [address] 26218- 8896 Feb, [facility] [id number] [place] [address] 48087- 0214 Feb, Chronic pain G89.29 [facility] [id number] [place] [address] 33163- 2053 Feb, [facility] [id number] [place] [address] 67198- 5539 Jan, [facility] [id number] [place] [address] 69422- 2711 Dec, [facility] [id number] [place] [address] 81780- 0182 Dec, [facility] [id number] [place] [address] 27129- 5077 Dec, Seizures R56.9 ; COPD (chronic obstructive pulmonary disease ) J44.9 ; Chronic pain G89.29 ; BPH (benign prostatic hyperplasia) N40.0 ; Generalized osteoarthritis M15.9 ; Hypercholesterolemia E78.0 ; Overactive bladder N32.81 ; Insomnia, unspecified type G47.00 ; Other depression F32.8 ; Environmental allergies Z91.09 and Gastroesophageal reflux disease, esophagitis presence not specified K21.9 [facility] [id number] [place] [address] 26874- 5903 November, Chronic pain due to trauma G89.[address] [facility] [id number] [place] [address] 45412- 2072 Oct, [facility] [id number] [place] [address] 55248- 4305 Sep, [facility] [address], [place] [address] 2073 Sep, [facility] [id number] [place] [address] 85453- 6796 Sep, [facility] [id number] [place] [address] 93176- 4944 Sep, Seizures R56.9 ; Major depressive disorder, recurrent episode F33.9 and LEROY (generalized anxiety disorder) F41.1 [facility] [id number] [place] [address] 23711- 8725 Aug, [facility] [id number] [place] [address] 29023- 3114 Aug, COPD (chronic obstructive pulmonary disease) J44.9 ; Chronic pain G89.29 ; BPH (benign prostatic hyperplasia) N40.0 ; Tobacco abuse Z72.0 ; Generalized osteoarthritis M15.9 ; Seizures R56.9 ; Overactive bladder N32.81 ; Depression F32.[address] [facility] [id number] [place] [address] 69446- 4459 Jul, Essential (primary) hypertension I10 ; Pure hypercholesterolemia E78.0 ; Generalized osteoarthrosis, unspecified site 715.00 and Other host and hostess (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 Z79.899 [facility] [address] [place] [address] 06632- 5081 Jul, [facility] [address] [place] [address] 34958- 1362 Jul, [facility] [id number] [place] [address] 58751- 1104 Jun, [facility] [id number] [place] [address] 26654- 4224 May, [facility] [id number] [place] [address] 28210- 1868 Apr, [facility] [id number] [place] [address] 74161- 9965 Apr, Seizures R56.9 ; COPD (chronic obstructive pulmonary disease ) J44.9 ; Chronic pain G89.29 ; BPH (benign prostatic hyperplasia) N40.0 ; Tobacco abuse Z72.0 ; Generalized osteoarthritis M15.9 ; Insomnia G47.00 ; Anxiety F41.9 and GERD (gastroesophageal reflux disease) K21.9 [facility] [address] 67876- 1171 Apr, [facility] [address] 59403- 6789 Mar, [facility] [address] 19507- 5000 Feb, Major depression, recurrent 296.30 and Generalized anxiety disorder 300.[address] 93452- 8531 Feb, [facility] [id number] [place] [address] 67460- 3235 Feb, [facility] [address] [place] [address] 76157- 0135 Jan, Chronic pain due to injury 338.21 ; Seizures 780.39 ; COPD ( chronic obstructive pulmonary disease) 496 ; BPH (benign prostatic hyperplasia) 600.00 ; Tobacco use disorder 305.1 ; Generalized osteoarthrosis, unspecified site 715.00 ; Anxiety 300.00 ; GERD (gastroesophageal reflux disease) 530.[address] [facility] [id number] [place] [address] 24310- 2837 Jan, [facility] [address] [place] [address] 19025- 2128 Jan, [facility] [address] 83108- 4721 Jan, [facility] [address] [place] [address], [place] [address]- 2546 Jan, Seizures 780.39 ; COPD (chronic obstructive pulmonary disease) 496 ; Chronic pain due to injury 338.21 ; BPH (benign prostatic hyperplasia) 600.00 ; Tobacco use disorder 305.1 ; Generalized osteoarthrosis, unspecified site 715.00 ; Encounter for long-term (current) use of other medications V58.69 ; GERD (gastroesophageal reflux disease) 530.81 ; Hypercholesteremia 272.[address] [facility] [id number] [place] [address] 89167- 4857 Jan, [facility] [id number] [place] [address] 43238- 2995 Jan, Chronic pain due to injury 338.21 [facility] [id number] [place] [address] 230699- 0126 Dec, [place] [address] 484091- 1154 Dec, Seizures 780.39 ; COPD (chronic obstructive pulmonary disease) 496 ; Chronic pain due to injury 338.21 ; Environmental allergies V15.09 ; GERD (gastroesophageal reflux disease) 530.81 ; Essential hypertension 401.9 ; Psoriasis 696.1 ; PTSD (post-traumatic stress disorder) 309.81 and Depression (emotion) 311 IMMUNIZATIONS No Known Immunizations SOCIAL HISTORY Never Assessed REASON FOR VISIT oxygen recert PLAN OF CARE VITAL SIGNS MEDICATIONS Unknown [...] dioxide poisoning 2013 Hospitalization History [facility]- CP and SOB 10/17/2017
--- OUTSIDE RECORDS SUMMARY | 2018-05-25 14:46 | XMS REPORT ---
Author Author YUMIKO MICHEL [facility] Address [address] [place] [address] Care Team Providers Care Line Supervisor Name Role Phone YUMIKO MICHEL Unavailable PROBLEMS Type Condition ICD9-CM Code LEM48-YT Code Onset Dates Condition Status SNOMED Code Problem Generalized osteoarthritis M15.9 Active 238598718 Problem LEROY (generalized anxiety disorder) F41.1 Active 10666353 Problem BPH (benign prostatic hyperplasia) N40.0 Active 549698439 Problem COPD (chronic obstructive pulmonary disease) J44.9 Active 06171758 Problem Tobacco abuse Z72.0 Active 12229072 Problem Chronic pain G89.29 Active 73913045 Problem Seizures R56.9 Active 46294570 Problem Post traumatic seizure disorder R56.1 Active 95238746 Problem Gastroesophageal reflux disease, esophagitis presence not specified K21.9 Active 134924152 Problem Irritable bladder N32.89 Active 413655893 Problem Major depressive disorder, recurrent episode F33.9 Active 586323065 Problem Environmental allergies Z91.09 Active 698140854 Problem Hypercholesterolemia E78.00 Active 22167735 ALLERGIES No Information ENCOUNTERS Encounter Location Date Diagnosis [place] [id number] [place] [address] 90843- 6648 November, Chronic pain G89.29 [facility] [id number] [place] [address] 86600- 5211 November, Medicare annual wellness visit, initial Z00.00 ; COPD ( chronic obstructive pulmonary disease) J44.9 ; Major depressive disorder, recurrent episode F33.9 ; Gastroesophageal reflux disease, esophagitis presence not specified K21.9 ; Hypercholesterolemia E78.00 ; Seizures R56.9 ; Chronic pain G89.29 ; BPH (benign prostatic hyperplasia) N40.0 and Encounter for immunization Z23 [facility] [address] [place] [id number] [place] [address] 84932- 9069 November, Chronic pain G89.29 [place] [address] [place] [id number] [place] [address] 73331- 0692 Oct, [place] [address] [place] [id number] [place] [address] 58666- 1955 Oct, Chronic pain G89.29 [place] [address] [place] [id number] [place] [address] 90031- 1682 Sep, [place] [address] 11182- 5920 Sep, COPD (chronic obstructive pulmonary disease) J44.9 ; Tobacco abuse Z72.0 ; Major depressive disorder, recurrent episode F33.9 and Hypercholesterolemia E78.00 [place] [address] [place] [id number] [place] [address] 92049- 0604 Sep, [place] [address] 15958- 9966 Sep, Hypercholesterolemia E78.00 [place] [address] [place] [id number] [place] [address] 83024- 5972 Sep, Chronic pain G89.29 ; COPD (chronic obstructive pulmonary disease) J44.9 ; Major depressive disorder, recurrent episode F33.9 ; Post traumatic seizure disorder R56.1 and Hypercholesterolemia E78.00 [place] [address] [place] [id number] [place] [address] 35977- 9834 Sep, Chronic pain G89.29 [place] [address] [place] [id number] [place] [address] 56644- 8331 Aug, Major depressive disorder, recurrent episode F33.9 and Gastroesophageal reflux disease, esophagitis presence not specified K21.9 [place] [address] [place] [id number] [place] [address] 08373- 3935 Aug, Chronic pain G89.29 [place] [address] [place] [id number] [place] [address] 89794- 9685 Jul, Other chronic pain G89.29 and Anxiety F41.9 [facility] [id number] [place] [address] 14000- 8316 15 Jun, 2017 Chronic pain G89.29 and Seizures R56.9 [facility] [id number] [place] [address] 50456- 3956 13 Jun, 2017 Other chronic pain G89.29 and Anxiety F41.9 [facility] [address] 85027- 1338 May, COPD (chronic obstructive pulmonary disease) J44.9 [facility] [address] [place] [id number] [place] [address] 75413- 1807 May, Other chronic pain G89.29 and Anxiety F41.9 [place] [address] [place] [id number] [place] [address] 57456- 9439 Apr, Other chronic pain G89.29 and Anxiety F41.9 [facility] [address] [place] [id number] [place] [address] 83577- 0207 Mar, Anxiety F41.9 and Other chronic pain G89.29 [facility] [address] [place] [id number] [place] [address] 60502- 6007 Feb, [facility] [address] [place] [id number] [place] [address] 19920- 7172 Feb, Anxiety F41.9 and Other chronic pain G89.29 [facility] [address] [place] [id number] [place] [address] 99508- 9703 Feb, [facility] [address] [place] [id number] [place] [address] 76245- 1642 Feb, COPD (chronic obstructive pulmonary disease) J44.9 ; Sleep apnea due to high altitude G47.31 and Oxygen desaturation during sleep G47.34 [facility] [address] [place] [id number] [place] [address] 47429- 3184 Jan, Other chronic pain G89.29 and Anxiety F41.9 [facility] [address] [id number] [place] [address] 27753- 8622 Jan, [facility] [address] 12893- 8637 Dec, Anxiety F41.9 and Other chronic pain G89.29 [facility] [address] 90204- 3873 Dec, [place] [address] 23865- 9629 Dec, [place] [address] 68142- 9491 Dec, Seizures R56.9 ; Chronic pain G89.29 [...] and COPD (chronic obstructive pulmonary disease) J44.9 [place] [address] 53891- 3348 Dec, [place] [address] [place] [id number] [place] [address] 52457- 1542 Dec, [place] [address] [place] [id number] [place] [address] 58079- 0699 Dec, Generalized osteoarthritis M15.9 and Anxiety F41.9 [place] [address] [place] [id number] [place] [address] 05751- 2663 November, Status post shoulder surgery Z98.890 [place] [address] [place] [id number] [place] [address] 22410- 1226 November, Generalized osteoarthritis M15.9 and Anxiety F41.9 [place] [address] [place] [id number] [place] [address] 17935- 7978 Oct, [place] [address] [place] [id number] [place] [address] 88347- 9059 Oct, Bilateral hearing loss, unspecified hearing loss [...] ; Anxiety F41.9 and Environmental allergies Z91.[address] 42807- 0289 Oct, Chronic pain G89.29 and LEROY (generalized anxiety disorder) F41.[address] 28414- 3149 Sep, [address] 54803- 6367 Sep, Tear of right rotator cuff, unspecified [...] disease) J44.9 and Hearing reduced, bilateral H91.93 [place] [id number] [place] [address] 32935- 6947 Sep, LEROY (generalized anxiety disorder) F41.1 [place] [id number] [place] [address] 71717- 3586 Aug, [address] 60940- 4588 Aug, Tear of right rotator cuff, unspecified tear extent M75.101 [place] [address] [place] [id number] [place] [address] 60873- 2882 Aug, Seizures R56.9 ; Chronic pain G89.29 ; Generalized osteoarthritis M15.9 ; COPD (chronic obstructive pulmonary disease) J44.9 ; LEROY (generalized anxiety disorder) F41.1 ; Gastroesophageal reflux disease, esophagitis presence not specified K21.9 ; Scabies B86 ; Hypercholesterolemia E78.00 ; Irritable bladder N32.89 and Edema, unspecified type R60.9 [place] [address] [place] [id number] [place] [address] 11225- 8157 Jul, Major depressive disorder, recurrent episode F33.9 [place] [address] [place] [id number] [place] [address] 55854- 4252 Jul, Seizures R56.9 ; Hypercholesterolemia E78.00 ; BPH (benign prostatic hyperplasia) N40.0 ; Major depressive disorder, recurrent episode F33.9 and Edema, unspecified type R60.9 [place] [address] [place] [id number] [place] [address] 89377- 9692 Jul, Chronic pain G89.29 and LEROY (generalized anxiety disorder) F41.1 [place] [address] [place] [id number] [place] [address] 11882- 2523 Jul, Seizures R56.9 ; COPD (chronic obstructive [...] shoulder M25.511 and Other chronic pain G89.29 [place] [address] [place] [id number] [place] [address] 62478- 4718 Jun, [place] [id number] [place] [address] 48370- 5957 May, [facility] [address] [place] [id number] [place] [address] 90821- 7770 Apr, [facility] [address] [place] [id number] [place] [address] 14756- 9304 Apr, Seizures R56.9 ; COPD (chronic obstructive pulmonary disease ) J44.9 ; BPH (benign prostatic hyperplasia) N40.0 ; Chronic pain G89.29 ; Tobacco abuse Z72.0 ; LEROY (generalized anxiety disorder) F41.1 ; Environmental allergies Z91.09 ; Irritable bladder N32.89 and Hypercholesterolemia E78.00 [facility] [address] [place] [id number] [place] [address] 40186- 4219 Mar, [facility] [address] [place] [id number] [place] [address] 15214- 7485 Mar, [facility] [address] [place] [id number] [place] [address] 40106- 3715 Mar, [facility] [address] [place] [id number] [place] [address] 26377- 5175 Mar, [facility] [address] [place] [id number] [place] [address] 40966- 6296 Feb, [facility] [address] [place] [id number] [place] [address] 31414- 6156 Feb, Chronic pain G89.29 [facility] [address] [place] [id number] [place] [address] 44202- 3287 Feb, [facility] [address] [place] [id number] [place] [address] 18908- 1655 Jan, [facility] [address] [place] [id number] [place] [address] 80520- 2523 Dec, [facility] [address] [place] [id number] [place] [address] 95194- 8287 Dec, [facility] [address] 10741- 2163 Dec, Seizures R56.9 ; COPD (chronic obstructive pulmonary disease ) J44.9 ; Chronic pain G89.29 ; BPH (benign prostatic hyperplasia) N40.0 ; Generalized osteoarthritis M15.9 ; Hypercholesterolemia E78.0 ; Overactive bladder N32.81 ; Insomnia, unspecified type G47.00 ; Other depression F32.8 ; Environmental allergies Z91.09 and Gastroesophageal reflux disease, esophagitis presence not specified K21.9 [place] [address] 48514- 7233 November, Chronic pain due to trauma G89.21 and Anxiety F41.9 [place] [address] 20677- 5097 Oct, [place] [address] 18575- 0866 Sep, [place] [address] 01892- 3652 Sep, [place] [address] 39323- 5176 Sep, [place] [address] 46303- 6508 Sep, Seizures R56.9 ; Major depressive disorder, recurrent episode F33.9 and LEROY (generalized anxiety disorder) F41.1 [place] [address] 37736- 5704 Aug, [place] [address] 77004- 2548 Aug, COPD (chronic obstructive pulmonary disease) J44.9 ; Chronic pain G89.29 ; BPH (benign prostatic hyperplasia) N40.0 ; Tobacco abuse Z72.0 ; Generalized osteoarthritis M15.9 ; Seizures R56.9 ; Overactive bladder N32.81 ; Depression F32.9 and Anxiety F41.9 [place] [address] 28518- 0452 Jul, Essential (primary) hypertension I10 ; Pure hypercholesterolemia E78.0 ; Generalized osteoarthrosis, unspecified site 715.00 and Other senior care (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 Z79.899 [facility] [address] [place] [address] 27277- 8269 Jul, [facility] [address] [place] [id number] [place] [address] 88258- 2053 Jul, [facility] [address] [place] [id number] [place] [address] 31093- 9776 Jun, [facility] [address] [place] [id number] [place] [address] 26595- 5620 May, [facility] [address] [place] [id number] [place] [address] 66650- 3637 Apr, [facility] [address] [place] [id number] [place] [address] 02427- 9133 Apr, Seizures R56.9 ; COPD (chronic obstructive pulmonary disease ) J44.9 ; Chronic pain G89.29 ; BPH (benign prostatic hyperplasia) N40.0 ; Tobacco abuse Z72.0 ; Generalized osteoarthritis M15.9 ; Insomnia G47.00 ; Anxiety F41.9 and GERD (gastroesophageal reflux disease) K21.9 [facility] [address] [place] [address] 08324- 6104 Apr, [facility] [address] [place] [id number] [place] [address] 07621- 6829 Mar, [facility] [address] [place] [id number] [place] [address] 96843- 9322 Feb, Major depression, recurrent 296.30 and Generalized anxiety disorder 300.02 [facility] [address] [place] [id number] [place] [address] 22782- 5893 Feb, [facility] [address] [place] [id number] [place] [address] 04095- 4704 Feb, [facility] [address] [place] [address] 60596- 5906 Jan, Chronic pain due to injury 338.21 ; Seizures 780.39 ; COPD ( chronic obstructive pulmonary disease) 496 ; BPH (benign prostatic hyperplasia) 600.00 ; Tobacco use disorder 305.1 ; Generalized osteoarthrosis, unspecified site 715.00 ; Anxiety 300.00 ; GERD (gastroesophageal reflux disease) 530.81 and Hypercholesteremia 272.[address] 25024- 3417 Jan, [place] [address] [place] [id number] [place] [address] 167389- 1644 Jan, [address] 76248- 6021 Jan, [place] [id number] [place] [address] 52205- 0209 Jan, Seizures 780.39 ; COPD (chronic obstructive pulmonary disease) 496 ; Chronic pain due to injury 338.21 ; BPH (benign prostatic hyperplasia) 600.00 ; Tobacco use disorder 305.1 ; Generalized osteoarthrosis, unspecified site 715.00 ; Encounter for long-term (current) use of other medications V58.69 ; GERD (gastroesophageal reflux disease) 530.81 ; Hypercholesteremia 272.0 and Depression [address] [place] [id number] [place] [address] 75254- 6703 Jan, [place] [id number] [place] [address] 234130- 9579 Jan, Chronic pain due to injury 338.21 [place] [id number] [place] [address] 20291- 3086 Dec, [place] [id number] [place] [address] 59512104- 1569 Dec, Seizures 780.39 ; COPD (chronic obstructive pulmonary disease) 496 ; Chronic pain due to injury 338.21 ; Environmental allergies V15.09 ; GERD (gastroesophageal reflux disease) 530.81 ; Essential hypertension 401.9 ; Psoriasis 696.1 ; PTSD (post-traumatic stress disorder) 309.81 and Depression (emotion) 311 IMMUNIZATIONS No Known Immunizations SOCIAL HISTORY Never Assessed REASON FOR VISIT Percocet PLAN OF CARE VITAL SIGNS MEDICATIONS Medication Instructions Dosage Frequency Start Date End Date Duration Status Alprazolam 0.5 MG Orally 2 times a day prn 1 tablet Jul, 28 days Active Percocet 10-325 MG Orally 3 times a day 1 tablet as needed 8h Jun, 28 days Active RESULTS No Results PROCEDURES [...] dioxide poisoning 2013 Hospitalization History [facility]- CP and SOB 10/17/2017
--- OUTSIDE RECORDS SUMMARY | 2018-05-25 14:46 | XMS REPORT ---
Author Author KAYLYNN Rabago Organization [facility] Address [address] [place] [address] Care Team Providers Care Hydrator Name Role Phone Hima KAYLYNN Unavailable PROBLEMS Type Condition ICD9-CM Code GTC63-VQ Code Onset Dates Condition Status SNOMED Code Problem Generalized osteoarthritis M15.9 Active 676710906 Problem LEROY (generalized anxiety disorder) F41.1 Active 93039454 Problem BPH (benign prostatic hyperplasia) N40.0 Active 681537556 Problem COPD (chronic obstructive pulmonary disease) J44.9 Active 67204209 Problem Tobacco abuse Z72.0 Active 19277208 Problem Chronic pain G89.29 Active 30455746 Problem Seizures R56.9 Active 65093952 Problem Post traumatic seizure disorder R56.1 Active 82572330 Problem Gastroesophageal reflux disease, esophagitis presence not specified K21.9 Active 538774952 Problem Irritable bladder N32.89 Active 045804877 Problem Major depressive disorder, recurrent episode F33.9 Active 244780749 Problem Environmental allergies Z91.09 Active 261207260 Problem Hypercholesterolemia E78.00 Active 13041546 ALLERGIES No Information ENCOUNTERS Encounter Location Date Diagnosis [facility] [address] [address] November, Medicare annual wellness visit, initial Z00.00 [facility] [address] [address] Sep, [facility] [id number] [place] [address]70- [address]757 Sep, COPD (chronic obstructive pulmonary disease) J44.9 ; Tobacco abuse Z72.0 ; Major depressive disorder, recurrent episode F33.[address] [facility] [id number] [place] [address] 29512- 5386 Sep, [facility] [id number] [place] [address] 29430- 9543 Sep, Hypercholesterolemia E78.00 [facility] [id number] [place] [address] 16748- 7470 Sep, Chronic pain G89.29 ; COPD (chronic obstructive pulmonary disease) J44.9 ; Major depressive disorder, recurrent episode F33.9 ; Post traumatic seizure disorder R56.1 and Hypercholesterolemia E78.00 [facility] [id number] [place] [address] 67671- 1600 Sep, Chronic pain G89.29 [facility] [address] [address]36- 7097 07 Aug, 2017 Major depressive disorder, recurrent episode F33.9 and Gastroesophageal reflux disease, esophagitis presence not specified K21.9 [facility] [address] 93138- 5792 Aug, Chronic pain G89.29 [facility] [id number] [place] [address] 09832- 5347 Jul, Other chronic pain G89.29 and Anxiety F41.9 [facility] [id number] [place] [address] 72514- 0311 15 Jun, 2017 Chronic pain G89.29 and Seizures R56.9 [facility] [id number] [place] [address] 60041- 3849 Jun, Other chronic pain G89.29 and Anxiety F41.9 [facility] [id number] [place] [address] 36139- 3482 May, COPD (chronic obstructive pulmonary disease) J44.9 [facility] [id number] [place] [address] 07786- 3264 16 May, 2017 Other chronic pain G89.29 and Anxiety F41.9 [facility] [id number] [place] [address] 86274- 2944 Apr, Other chronic pain G89.[address] [facility] [id number] [place] [address] 91723- 4463 Mar, Anxiety F41.9 and Other chronic pain G89.29 [facility] [id number] [place] [address] 34785- 4916 Feb, [facility] [id number] [place] [address] 27580- 3580 Feb, Anxiety F41.9 and Other chronic pain G89.29 [facility] [id number] [place] [address] 48594- 3021 Feb, [facility] [id number] [place] [address] 10230- 8820 Feb, COPD (chronic obstructive pulmonary disease) J44.9 ; Sleep apnea due to high altitude G47.31 and Oxygen desaturation during sleep G47.34 [facility] [id number] [place] [address] 86046- 9130 Jan, Other chronic pain G89.29 and Anxiety F41.9 [facility] [id number] [place] [address] 68158- 3519 Jan, [facility] [id number] [place] [address] 94888- 7560 Dec, Anxiety F41.9 and Other chronic pain G89.29 [facility] [address] [place] [address] 66273- 0730 Dec, [facility] [id number] [place] [address] 25709- 5088 Dec, [facility] [id number] [place] [address] 78996- 3331 Dec, Seizures R56.9 ; Chronic pain G89.29 [...] and COPD (chronic obstructive pulmonary disease) J44.9 [facility] [id number] [place] [address] 93435- 7908 Dec, [place] [address] 94331- 2524 Dec, [facility] [address] 38661- 4682 Dec, Generalized osteoarthritis M15.9 and Anxiety F41.9 [facility] [address] 94480- 4102 November, Status post shoulder surgery Z98.890 [facility] [facility] [address] 51820- 1854 November, Generalized osteoarthritis M15.9 and Anxiety F41.9 [facility] [facility] [address] 63368- 3586 Oct, [facility] [address] 06221- 8177 Oct, Bilateral hearing loss, unspecified hearing loss [...] ; Anxiety F41.9 and Environmental allergies Z91.09 [facility] [id number] [place] [address] 06924- 1356 Oct, Chronic pain G89.29 and LEROY (generalized anxiety disorder) F41.1 [facility] [id number] [place] [address] 75818- 9319 Sep, [facility] [address] 41690- 3868 Sep, Tear of right rotator cuff, unspecified [...] disease) J44.9 and Hearing reduced, bilateral H91.93 [facility] [id number] [place] [address] 45290- 5715 Sep, LEROY (generalized anxiety disorder) F41.1 [facility] [address] 41865- 0504 Aug, [facility] [address] 57712- 4736 Aug, Tear of right rotator cuff, unspecified tear extent M75.101 [facility] [id number] [place] [address] 85655- 7093 Aug, Seizures R56.9 ; Chronic pain G89.29 ; Generalized osteoarthritis M15.9 ; COPD (chronic obstructive pulmonary disease) J44.9 ; LEROY (generalized anxiety disorder) F41.1 ; Gastroesophageal reflux disease, esophagitis presence not specified K21.9 ; Scabies B86 ; Hypercholesterolemia E78.00 ; Irritable bladder N32.89 and Edema, unspecified type R60.9 [facility] [id number] [place] [address] 64124- 1569 Jul, Major depressive disorder, recurrent episode F33.9 [facility] [id number] [place] [address] 56035- 8420 Jul, Seizures R56.9 ; Hypercholesterolemia E78.00 ; BPH (benign prostatic hyperplasia) N40.0 ; Major depressive disorder, recurrent episode F33.9 and Edema, unspecified type R60.9 [facility] [id number] [place] [address] 01631- 3003 Jul, Chronic pain G89.29 and LEROY (generalized anxiety disorder) F41.[address] 18622- 2515 Jul, Seizures R56.9 ; COPD (chronic obstructive [...] shoulder M25.511 and Other chronic pain G89.29 [facility] [address] 56703- 3141 Jun, [address] 06932- 7377 May, [place] [address] 26354- 8924 Apr, [address] 26345- 3128 Apr, Seizures R56.9 ; COPD (chronic obstructive pulmonary disease ) J44.9 ; BPH (benign prostatic hyperplasia) N40.0 ; Chronic pain G89.29 ; Tobacco abuse Z72.0 ; LEROY (generalized anxiety disorder) F41.1 ; Environmental allergies Z91.09 ; Irritable bladder N32.89 and Hypercholesterolemia E78.00 [facility] [id number] [place] [address] 01615- 1327 Mar, [address] 22751- [address] Mar, [facility] [address] [place] [address] 37691- 3310 Mar, [facility] [id number] [place] [address] 59738- 8907 Mar, [facility] [id number] [place] [address] 16181- 3071 Feb, [facility] [id number] [place] [address] 62189- 5098 Feb, Chronic pain G89.29 [facility] [id number] [place] [address] 54486- 1491 Feb, [facility] [id number] [place] [address] 08287- 4218 Jan, [facility] [id number] [place] [address] 10018- 2291 Dec, [facility] [id number] [place] [address] 03884- 6062 Dec, [facility] [id number] [place] [address] 78911- 7679 Dec, Seizures R56.9 ; COPD (chronic obstructive pulmonary disease ) J44.9 ; Chronic pain G89.29 ; BPH (benign prostatic hyperplasia) N40.0 ; Generalized osteoarthritis M15.9 ; Hypercholesterolemia E78.0 ; Overactive bladder N32.81 ; Insomnia, unspecified type G47.00 ; Other depression F32.8 ; Environmental allergies Z91.09 and Gastroesophageal reflux disease, esophagitis presence not specified K21.9 [facility] [id number] [place] [address] 54156- 3898 November, Chronic pain due to trauma G89.[address] [facility] [id number] [place] [address] 87467- 8308 Oct, [facility] [id number] [place] [address] 51629- 7012 Sep, [facility] [address] [address] Sep, [facility] [id number] [place] [address] 39193- 2545 Sep, [facility] [id number] [place] [address] 67769- 3414 Sep, Seizures R56.9 ; Major depressive disorder, recurrent episode F33.9 and LEROY (generalized anxiety disorder) F41.1 [facility] [id number] [place] [address] 05101- 0974 Aug, [facility] [id number] [place] [address] 68073- 2204 Aug, COPD (chronic obstructive pulmonary disease) J44.9 ; Chronic pain G89.29 ; BPH (benign prostatic hyperplasia) N40.0 ; Tobacco abuse Z72.0 ; Generalized osteoarthritis M15.9 ; Seizures R56.9 ; Overactive bladder N32.81 ; Depression F32.[address] 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 [address] [place] [address] 73862- 9207 Jul, [facility] [address] [place] [address] 47854- 8912 Jul, [facility] [id number] [place] [address] 21781- 4488 Jun, [facility] [id number] [place] [address] 31143- 3592 May, [facility] [id number] [place] [address] 77661- 1891 Apr, [facility] [id number] [place] [address] 12324- 0329 Apr, Seizures R56.9 ; COPD (chronic obstructive pulmonary disease ) J44.9 ; Chronic pain G89.29 ; BPH (benign prostatic hyperplasia) N40.0 ; Tobacco abuse Z72.0 ; Generalized osteoarthritis M15.9 ; Insomnia G47.00 ; Anxiety F41.9 and GERD (gastroesophageal reflux disease) K21.9 [facility] [address] 15744- 6981 Apr, [facility] [address] 65251- 7526 Mar, [facility] [address] 90895- 6918 Feb, Major depression, recurrent 296.30 and Generalized anxiety disorder 300.[address] 65955- 8828 Feb, [facility] [id number] [place] [address] 02161- 5053 Feb, [facility] [address] [place] [address] 04956- 7592 Jan, Chronic pain due to injury 338.21 ; Seizures 780.39 ; COPD ( chronic obstructive pulmonary disease) 496 ; BPH (benign prostatic hyperplasia) 600.00 ; Tobacco use disorder 305.1 ; Generalized osteoarthrosis, unspecified site 715.00 ; Anxiety 300.00 ; GERD (gastroesophageal reflux disease) 530.[address] [facility] [id number] [place] [address] 19228- 0706 Jan, [facility] [address] [place] [address] 33489- 9358 Jan, [facility] [address] 44963- 6364 Jan, [facility] [address] [place] [address], [place] [address]- 2546 Jan, Seizures 780.39 ; COPD (chronic obstructive pulmonary disease) 496 ; Chronic pain due to injury 338.21 ; BPH (benign prostatic hyperplasia) 600.00 ; Tobacco use disorder 305.1 ; Generalized osteoarthrosis, unspecified site 715.00 ; Encounter for long-term (current) use of other medications V58.69 ; GERD (gastroesophageal reflux disease) 530.81 ; Hypercholesteremia 272.[address] [facility] [id number] [place] [address] 56723- 3380 Jan, [facility] [id number] [place] [address] 36804- 7007 Jan, Chronic pain due to injury 338.21 [facility] [place] [id number] [place] [address] 93024- 9984 Dec, [place] [address] 96326- 3540 Dec, Seizures 780.39 ; COPD (chronic obstructive pulmonary disease) 496 ; Chronic pain due to injury 338.21 ; Environmental allergies V15.09 ; GERD (gastroesophageal reflux disease) 530.81 ; Essential hypertension 401.9 ; Psoriasis 696.1 ; PTSD (post-traumatic stress disorder) 309.81 and Depression (emotion) 311 IMMUNIZATIONS No Known Immunizations SOCIAL HISTORY Never Assessed REASON FOR VISIT Controlled Med Refill PLAN OF CARE VITAL SIGNS MEDICATIONS Medication Instructions Dosage Frequency Start Date End Date Duration Status Percocet 10-325 MG Orally 3 times a day 1 tablet as needed 8h Dec, Active Alprazolam 0.5 MG Orally 2 times a day prn 1 tablet Jul, Active RESULTS No Results PROCEDURES No Known [...] dioxide poisoning 2013 Hospitalization History [facility] [place]- CP and SOB 10/17/2017
--- OUTSIDE RECORDS SUMMARY | 2018-05-25 14:48 | XMS REPORT ---
Author Author KAYLYNN Rabago Organization [facility] Address [address] [place] [address] Care Team Providers Care Front Counter Attendant Name Role Phone Hima KAYLYNN Unavailable PROBLEMS Type Condition ICD9-CM Code BUI53-SW Code Onset Dates Condition Status SNOMED Code Problem Generalized osteoarthritis M15.9 Active 782089390 Problem LEROY (generalized anxiety disorder) F41.1 Active 28412491 Problem BPH (benign prostatic hyperplasia) N40.0 Active 195813152 Problem COPD (chronic obstructive pulmonary disease) J44.9 Active 58186733 Problem Tobacco abuse Z72.0 Active 35291828 Problem Chronic pain G89.29 Active 92397970 Problem Seizures R56.9 Active 98195517 Problem Post traumatic seizure disorder R56.1 Active 99603058 Problem Gastroesophageal reflux disease, esophagitis presence not specified K21.9 Active 787345196 Problem Irritable bladder N32.89 Active 892041202 Problem Major depressive disorder, recurrent episode F33.9 Active 417819251 Problem Environmental allergies Z91.09 Active 567578843 Problem Hypercholesterolemia E78.00 Active 18084780 ALLERGIES No Information ENCOUNTERS Encounter Location Date Diagnosis [facility] [address], [place] [address] November, Medicare annual wellness visit, initial Z00.00 [facility] [address], [place] [address] Sep, [facility] [id number] [place] [address] 93448- 2468 Sep, COPD (chronic obstructive pulmonary disease) J44.9 ; Tobacco abuse Z72.0 ; Major depressive disorder, recurrent episode F33.9 and Hypercholesterolemia E78.00 [facility] [id number] [place] [address] 23088- 0543 Sep, [place] [id number] [place] [address] 82191- 4120 Sep, Hypercholesterolemia E78.00 [facility] [id number] [place] [address] 62891- 2120 Sep, Chronic pain G89.29 ; COPD (chronic obstructive pulmonary disease) J44.9 ; Major depressive disorder, recurrent episode F33.9 ; Post traumatic seizure disorder R56.1 and Hypercholesterolemia E78.00 [place] [id number] [place] [address] 35983- 3424 Sep, Chronic pain G89.29 [place] [address] [address]- [address] 07 Aug, 2017 Major depressive disorder, recurrent episode F33.9 and Gastroesophageal reflux disease, esophagitis presence not specified K21.9 [place] [address] [address]- [address]647 Aug, Chronic pain G89.29 [place] [id number] [place] [address] 45049- 5593 Jul, Other chronic pain G89.29 and Anxiety F41.9 [place] [id number] [place] [address] 15954- 0368 15 Jun, 2017 Chronic pain G89.29 and Seizures R56.9 [place] [id number] [place] [address] 44274- 5651 Jun, Other chronic pain G89.29 and Anxiety F41.9 [place] [id number] [place] [address] 67786- 8912 May, COPD (chronic obstructive pulmonary disease) J44.9 [facility] [id number] [place] [address] 59332- 0708 16 May, 2017 Other chronic pain G89.29 and Anxiety F41.9 [place] [id number] [place] [address] 87927- 6197 Apr, Other chronic pain G89.29 and Anxiety F41.9 [facility] [id number] [place] [address] 15344- 2079 Mar, Anxiety F41.9 and Other chronic pain G89.29 [facility] [id number] [place] [address] 19176- 3562 Feb, [place] [id number] [place] [address] 24401- 4666 Feb, Anxiety F41.9 and Other chronic pain G89.29 [facility] [id number] [place] [address] 91531- 2949 Feb, [place] [id number] [place] [address] 30706- 2323 Feb, COPD (chronic obstructive pulmonary disease) J44.9 ; Sleep apnea due to high altitude G47.31 and Oxygen desaturation during sleep G47.34 [place] [id number] [place] [address] 92583- 2369 Jan, Other chronic pain G89.29 and Anxiety F41.9 [place] [id number] [place] [address] 37666- 6130 Jan, [place] [id number] [place] [address] 72758- 2620 Dec, Anxiety F41.9 and Other chronic pain G89.29 [place] [id number] [place] [address] 20327- 7842 Dec, [place] [id number] [place] [address] 83124- 6042 Dec, [place] [id number] [place] [address] 80476- 5154 Dec, Seizures R56.9 ; Chronic pain G89.29 [...] (chronic obstructive pulmonary disease) J44.9 [place] [id number] [place] [address] 16991- 8371 Dec, [place] [address] 79760- 8908 Dec, [place] [address] 66401- 0210 Dec, Generalized osteoarthritis M15.9 and Anxiety F41.9 [place] [address] 27375- 7770 November, Status post shoulder surgery Z98.890 [place] [address] 43930- 5337 November, Generalized osteoarthritis M15.9 and Anxiety F41.9 [place] [address] 93859- 0565 Oct, [place] [address] 72193- 7661 Oct, Bilateral hearing loss, unspecified hearing loss [...] ; Anxiety F41.9 and Environmental allergies Z91.09 [place] [id number] [place] [address] 51635- 2361 Oct, Chronic pain G89.29 and LEROY (generalized anxiety disorder) F41.1 [place] [id number] [place] [address] 98077- 6366 Sep, [place] [address] 98481- 2478 Sep, Tear of right rotator cuff, unspecified [...] disease) J44.9 and Hearing reduced, bilateral H91.93 [place] [id number] [place] [address] 94066- 0969 Sep, LEROY (generalized anxiety disorder) F41.1 [place] [address] 56923- 7297 Aug, [place] [address] 21498- 6384 Aug, Tear of right rotator cuff, unspecified tear extent M75.101 [place] [id number] [place] [address] 07688- 1478 Aug, Seizures R56.9 ; Chronic pain G89.29 ; Generalized osteoarthritis M15.9 ; COPD (chronic obstructive pulmonary disease) J44.9 ; LEROY (generalized anxiety disorder) F41.1 ; Gastroesophageal reflux disease, esophagitis presence not specified K21.9 ; Scabies B86 ; Hypercholesterolemia E78.00 ; Irritable bladder N32.89 and Edema, unspecified type R60.9 [place] [id number] [place] [address] 19957- 0268 Jul, Major depressive disorder, recurrent episode F33.9 [place] [id number] [place] [address] 89465- 4955 Jul, Seizures R56.9 ; Hypercholesterolemia E78.00 ; BPH (benign prostatic hyperplasia) N40.0 ; Major depressive disorder, recurrent episode F33.9 and Edema, unspecified type R60.9 [place] [id number] [place] [address] 87384- 0173 Jul, Chronic pain G89.29 and LEROY (generalized anxiety disorder) F41.[address] 95811- 5357 Jul, Seizures R56.9 ; COPD (chronic obstructive [...] shoulder M25.511 and Other chronic pain G89.29 [place] [address] 79091- 1135 Jun, [address] 36105- 9749 May, [place] [address] 73979- 8758 Apr, [address] 25111- 1353 Apr, Seizures R56.9 ; COPD (chronic obstructive pulmonary disease ) J44.9 ; BPH (benign prostatic hyperplasia) N40.0 ; Chronic pain G89.29 ; Tobacco abuse Z72.0 ; LEROY (generalized anxiety disorder) F41.1 ; Environmental allergies Z91.09 ; Irritable bladder N32.89 and Hypercholesterolemia E78.00 [place] [id number] [place] [address] 92908- 3280 Mar, [address] 05840- 7926 Mar, [facility] [id number] [place] [address] 85350- 8216 Mar, [facility] [id number] [place] [address] 15564- 3735 Mar, [facility] [id number] [place] [address] 97985- 5297 Feb, [facility] [id number] [place] [address] 61015- 9607 Feb, Chronic pain G89.29 [facility] [id number] [place] [address] 86187- 5948 Feb, [facility] [id number] [place] [address] 03236- 3651 Jan, [facility] [id number] [place] [address] 40475- 6603 Dec, [facility] [id number] [place] [address] 61204- 3727 Dec, [facility] [id number] [place] [address] 81718- 4027 Dec, Seizures R56.9 ; COPD (chronic obstructive pulmonary disease ) J44.9 ; Chronic pain G89.29 ; BPH (benign prostatic hyperplasia) N40.0 ; Generalized osteoarthritis M15.9 ; Hypercholesterolemia E78.0 ; Overactive bladder N32.81 ; Insomnia, unspecified type G47.00 ; Other depression F32.8 ; Environmental allergies Z91.09 and Gastroesophageal reflux disease, esophagitis presence not specified K21.9 [facility] [id number] [place] [address] 97966- 6277 November, Chronic pain due to trauma G89.21 and Anxiety F41.9 [facility] [id number] [place] [address] 65420- 7170 Oct, [facility] [id number] [place] [address] 52917- 5908 Sep, [facility] [address], [place] [address]- 3426 Sep, [facility] [id number] [place] [address] 02280- 8173 Sep, [facility] [id number] [place] [address] 53653- 6478 Sep, Seizures R56.9 ; Major depressive disorder, recurrent episode F33.9 and LEROY (generalized anxiety disorder) F41.1 [facility] [id number] [place] [address] 77784- 5688 Aug, [facility] [id number] [place] [address] 22942- 9104 Aug, COPD (chronic obstructive pulmonary disease) J44.9 ; Chronic pain G89.29 ; BPH (benign prostatic hyperplasia) N40.0 ; Tobacco abuse Z72.0 ; Generalized osteoarthritis M15.9 ; Seizures R56.9 ; Overactive bladder N32.81 ; Depression F32.9 and Anxiety F41.9 [facility] [id number] [place] [address] 97565- 7592 Jul, Essential (primary) hypertension I10 ; Pure hypercholesterolemia E78.0 ; Generalized osteoarthrosis, unspecified site 715.00 and 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 [facility] [id number] [place] [address] 74402- 9897 Jul, [facility] [address] [place] [address] 80929- 2709 Jul, [facility] [id number] [place] [address] 17983- 7849 Jun, [facility] [id number] [place] [address] 32056- 6431 May, [facility] [id number] [place] [address] 42666- 6049 Apr, [facility] [id number] [place] [address] 83912- 0894 Apr, Seizures R56.9 ; COPD (chronic obstructive pulmonary disease ) J44.9 ; Chronic pain G89.29 ; BPH (benign prostatic hyperplasia) N40.0 ; Tobacco abuse Z72.0 ; Generalized osteoarthritis M15.9 ; Insomnia G47.00 ; Anxiety F41.9 and GERD (gastroesophageal reflux disease) K21.9 [facility] [address] 96344- 1532 Apr, [facility] [address] 82448- 7695 Mar, [facility] [address] 78190- 6637 Feb, Major depression, recurrent 296.30 and Generalized anxiety disorder 300.[address] 69613- 1452 Feb, [facility] [id number] [place] [address] 52698- 0653 Feb, [facility] [address] [place] [address] 33513- 5454 Jan, Chronic pain due to injury 338.21 ; Seizures 780.39 ; COPD ( chronic obstructive pulmonary disease) 496 ; BPH (benign prostatic hyperplasia) 600.00 ; Tobacco use disorder 305.1 ; Generalized osteoarthrosis, unspecified site 715.00 ; Anxiety 300.00 ; GERD (gastroesophageal reflux disease) 530.81 and Hypercholesteremia 272.0 [facility] [id number] [place] [address] 05178- 5342 Jan, [facility] [address] [place] [address] 82251- 4121 Jan, [facility] [address] 70227- 3452 Jan, [facility] [address] [place] [address], [place] [address]- 2546 Jan, Seizures 780.39 ; COPD (chronic obstructive pulmonary disease) 496 ; Chronic pain due to injury 338.21 ; BPH (benign prostatic hyperplasia) 600.00 ; Tobacco use disorder 305.1 ; Generalized osteoarthrosis, unspecified site 715.00 ; Encounter for long-term (current) use of other medications V58.69 ; GERD (gastroesophageal reflux disease) 530.81 ; Hypercholesteremia 272.0 and Depression [address] [place] [id number] [place] [address] 26741- 2333 Jan, [facility] [address]- 7962 Jan, Chronic pain due to injury 338.21 [place] [id number] [place] [address] 627548- 4716 Dec, [place] [address] 61739765- 1731 Dec, Seizures 780.39 ; COPD (chronic obstructive pulmonary disease) 496 ; Chronic pain due to injury 338.21 ; Environmental allergies V15.09 ; GERD (gastroesophageal reflux disease) 530.81 ; Essential hypertension 401.9 ; Psoriasis 696.1 ; PTSD (post-traumatic stress disorder) 309.81 and Depression (emotion) 311 IMMUNIZATIONS No Known Immunizations SOCIAL HISTORY Never Assessed REASON FOR VISIT Eye Exam PLAN OF CARE VITAL SIGNS MEDICATIONS Unknown [...] dioxide poisoning 2013 Hospitalization History [facility] Platter- CP and SOB 10/17/2017
--- OUTSIDE RECORDS SUMMARY | 2018-05-25 14:49 | XMS REPORT ---
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 Name Role Phone veraDENISHA KAYLYNN Unavailable PROBLEMS Type Condition ICD9-CM Code [id number] Code Onset Dates Condition Status SNOMED Code Problem Generalized osteoarthritis M15.9 Active 097029625 Problem LEROY (generalized anxiety disorder) F41.1 Active 67073032 Problem BPH (benign prostatic hyperplasia) N40.0 Active 520407898 Problem COPD (chronic obstructive pulmonary disease) J44.9 Active 72612179 Problem Tobacco abuse Z72.0 Active 80662532 Problem Chronic pain G89.29 Active 49926496 Problem Seizures R56.9 Active 10847301 Problem Post traumatic seizure disorder R56.1 Active 36102028 Problem Gastroesophageal reflux disease, esophagitis presence not specified K21.9 Active 482075288 Problem Irritable bladder N32.89 Active 448606978 Problem Major depressive disorder, recurrent episode F33.9 Active 308857261 Problem Environmental allergies Z91.09 Active 104397487 Problem Hypercholesterolemia E78.00 Active 83117144 ALLERGIES No Information ENCOUNTERS Encounter Location Date Diagnosis [place] [id number] [place] [address] 33573- 4698 November, Medicare annual wellness visit, initial Z00.00 [facility] [address] [address] Oct, [facility] [address] [place] [id number] [place] [address] 14819- 9408 Sep, [facility] [address] [place] [address] 15170- 1957 Sep, COPD (chronic obstructive pulmonary disease) J44.9 ; Tobacco abuse Z72.0 ; Major depressive disorder, recurrent episode F33.9 and Hypercholesterolemia E78.00 [facility] [address] [place] [id number] [place] [address] 12019- 5309 Sep, [facility] [address] [address]27- 5746 Sep, Hypercholesterolemia E78.00 [facility] [address] [place] [id number] [place] [address] 98009- 4936 Sep, Chronic pain G89.29 ; COPD (chronic obstructive pulmonary disease) J44.9 ; Major depressive disorder, recurrent episode F33.9 ; Post traumatic seizure disorder R56.1 and Hypercholesterolemia E78.00 [place] [address] 9[address]66- 6777 Sep, Chronic pain G89.29 [place] [address] 90910- 7174 Aug, Major depressive disorder, recurrent episode F33.9 and Gastroesophageal reflux disease, esophagitis presence not specified K21.9 [place] [address] [place] [id number] [place] [address] 24462- 6560 Aug, Chronic pain G89.29 [place] [address] 29587- 2566 Jul, Other chronic pain G89.29 and Anxiety F41.9 [place] [address] [place] [id number] [place] [address] 29909- 7134 Jun, Chronic pain G89.29 and Seizures R56.9 [place] [address] [place] [id number] [place] [address] 91642- 2549 Jun, Other chronic pain G89.29 and Anxiety F41.9 [place] [address] [place] [id number] [place] [address] 89115- 5580 May, COPD (chronic obstructive pulmonary disease) J44.9 [facility] [address] [place] [id number] [place] [address] 60209- 4018 16 May, 2017 Other chronic pain G89.29 and Anxiety F41.9 [facility] [address] [place] [address] 48487- 8553 Apr, Other chronic pain G89.29 and Anxiety F41.9 [facility] [address] [place] [id number] [place] [address] 00848- 6781 Mar, Anxiety F41.9 and Other chronic pain G89.29 [facility] [address] [place] [id number] [place] [address] 84993- 4068 Feb, [facility] [address] [place] [id number] [place] [address] 20496- 3240 Feb, Anxiety F41.9 and Other chronic pain G89.29 [facility] [address] [place] [id number] [place] [address] 37339- 3206 Feb, [facility] [address] [place] [id number] [place] [address] 08800- 8759 Feb, COPD (chronic obstructive pulmonary disease) J44.9 ; Sleep apnea due to high altitude G47.31 and Oxygen desaturation during sleep G47.34 [facility] [address] [place] [id number] [place] [address] 88138- 6310 Jan, Other chronic pain G89.29 and Anxiety F41.9 [facility] [address] [place] [id number] [place] [address] 74744- 4520 Jan, [facility] [address] [place] [id number] [place] [address] 64964- 0046 Dec, Anxiety F41.9 and Other chronic pain G89.29 [facility] [address] [place] [id number] [place] [address] 10166- 8858 Dec, [facility] [address] [place] [id number] [place] [address] 61089- 5498 Dec, [facility] [address] [place] [id number] [place] [address] 05080- 9161 Dec, Seizures R56.9 ; Chronic pain G89.29 [...] and COPD (chronic obstructive pulmonary disease) J44.9 [place] [address] 03932- 3194 Dec, [place] [address] 30276- 9176 Dec, [place] [address] 09361- 6397 Dec, Generalized osteoarthritis M15.9 and Anxiety F41.9 [place] [address] 60703- 2218 November, Status post shoulder surgery Z98.890 [place] [address] 33478- 7083 November, Generalized osteoarthritis M15.9 and Anxiety F41.9 [place] [address] 42127- 4071 Oct, [place] [address] 75636- 3764 Oct, Bilateral hearing loss, unspecified hearing loss [...] ; Anxiety F41.9 and Environmental allergies Z91.09 [place] [address] [place] [id number] [place] [address] 68919- 4229 Oct, Chronic pain G89.29 and LEROY (generalized anxiety disorder) F41.1 [place] [address] [place] [id number] [place] [address] 17692- 6741 Sep, [place] [address] [place] [id number] [place] [address] 07707- 5708 Sep, Tear of right rotator cuff, unspecified [...] disease) J44.9 and Hearing reduced, bilateral H91.[address] 30295- 7314 Sep, LEROY (generalized anxiety disorder) F41.1 [place] [address] [place] [id number] [place] [address] 77327- 5742 Aug, [place] [id number] [place] [address] 69152- 3124 Aug, Tear of right rotator cuff, unspecified tear extent M75.101 [place] [address] [place] [id number] [place] [address] 43658- 9174 Aug, Seizures R56.9 ; Chronic pain G89.29 ; Generalized osteoarthritis M15.9 ; COPD (chronic obstructive pulmonary disease) J44.9 ; LEROY (generalized anxiety disorder) F41.1 ; Gastroesophageal reflux disease, esophagitis presence not specified K21.9 ; Scabies B86 ; Hypercholesterolemia E78.00 ; Irritable bladder N32.89 and Edema, unspecified type R60.9 [place] [id number] [place] [address] 46053- 9373 Jul, Major depressive disorder, recurrent episode F33.9 [place] [address] [place] [id number] [place] [address] 02033- 9814 Jul, Seizures R56.9 ; Hypercholesterolemia E78.00 ; BPH (benign prostatic hyperplasia) N40.0 ; Major depressive disorder, recurrent episode F33.9 and Edema, unspecified type R60.9 [place] [address] [place] [id number] [place] [address] 35232- 8379 Jul, Chronic pain G89.29 and LEROY (generalized anxiety disorder) F41.1 [place] [address] [place] [id number] [place] [address] 82026- 4060 Jul, Seizures R56.9 ; COPD (chronic obstructive [...] shoulder M25.511 and Other chronic pain G89.29 [place] [address] 74463- 7495 Jun, [place] [address] [place] [id number] [place] [address] 95498- 8351 May, [place] [address] 71531- 8750 Apr, [place] [address] 26044- 1278 Apr, Seizures R56.9 ; COPD (chronic obstructive pulmonary disease ) J44.9 ; BPH (benign prostatic hyperplasia) N40.0 ; Chronic pain G89.29 ; Tobacco abuse Z72.0 ; LEROY (generalized anxiety disorder) F41.1 ; Environmental allergies Z91.09 ; Irritable bladder N32.89 and Hypercholesterolemia E78.00 [place] [address] 31284- 4134 Mar, [facility] [address], [place] [address]- 5173 Mar, [facility] [address] [place] [address] 11412- 6826 Mar, [facility] [address] [place] [id number] [place] [address] 92573- 1373 Mar, [facility] [address] [place] [id number] [place] [address] 36773- 6457 Feb, [facility] [address] [place] [id number] [place] [address] 99583- 1684 Feb, Chronic pain G89.29 [facility] [address] [place] [id number] [place] [address] 56682- 4090 Feb, [facility] [address] [place] [id number] [place] [address] 96247- 3263 Jan, [facility] [address] [place] [id number] [place] [address] 05057- 4277 Dec, [facility] [address] [place] [id number] [place] [address] 31988- 0885 Dec, [facility] [address] [place] [address] 19370- 5482 Dec, Seizures R56.9 ; COPD (chronic obstructive pulmonary disease ) J44.9 ; Chronic pain G89.29 ; BPH (benign prostatic hyperplasia) N40.0 ; Generalized osteoarthritis M15.9 ; Hypercholesterolemia E78.0 ; Overactive bladder N32.81 ; Insomnia, unspecified type G47.00 ; Other depression F32.8 ; Environmental allergies Z91.09 and Gastroesophageal reflux disease, esophagitis presence not specified K21.9 [facility] [address] [place] [address] 28070- 8144 November, Chronic pain due to trauma G89.21 and Anxiety F41.9 [facility] [address] [place] [id number] [place] [address] 45057- 8432 Oct, [facility] [address] [address]- 9882 Sep, [facility] [address] [place] [address] 62098- 4690 Sep, [facility] [address] [place] [address] 33360- 8468 Sep, [facility] [address] [place] [id number] [place] [address] 19873- 2060 Sep, Seizures R56.9 ; Major depressive disorder, recurrent episode F33.9 and LEROY (generalized anxiety disorder) F41.1 [facility] [address] [place] [id number] [place] [address] 52749- 0632 Aug, [facility] [address] [place] [id number] [place] [address] 47063- 4690 Aug, COPD (chronic obstructive pulmonary disease) J44.9 ; Chronic pain G89.29 ; BPH (benign prostatic hyperplasia) N40.0 ; Tobacco abuse Z72.0 ; Generalized osteoarthritis M15.9 ; Seizures R56.9 ; Overactive bladder N32.81 ; Depression F32.9 and Anxiety F41.9 [facility] [address] [address]- 1465 Jul, Essential (primary) hypertension I10 ; Pure hypercholesterolemia E78.0 ; Generalized osteoarthrosis, unspecified site 715.00 and Other forensic dna analyst (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 Z79.899 [facility] [address] [address]- 2617 Jul, [facility] [address] [place] [id number] [place] [address] 14657- 0200 Jul, [facility] [address] [place] [address] 35052- 4475 Jun, [facility] [address] [place] [id number] [place] [address] 07722- 3354 May, [facility] [address] [place] [id number] [place] [address] 85319- 8045 Apr, [facility] [address] 91803- 0803 Apr, Seizures R56.9 ; COPD (chronic obstructive pulmonary disease ) J44.9 ; Chronic pain G89.29 ; BPH (benign prostatic hyperplasia) N40.0 ; Tobacco abuse Z72.0 ; Generalized osteoarthritis M15.9 ; Insomnia G47.00 ; Anxiety F41.9 and GERD (gastroesophageal reflux disease) K21.9 [place] [address] 62770- 2759 Apr, [facility] [address] 62063- 5640 Mar, [place] [address] 15702- 4716 Feb, Major depression, recurrent 296.30 and Generalized anxiety disorder 300.[address] 90489- 6515 Feb, [facility] [address] [place] [address] 36922- 7300 Feb, [facility] [address] 70739- 2174 Jan, Chronic pain due to injury 338.21 ; Seizures 780.39 ; COPD ( chronic obstructive pulmonary disease) 496 ; BPH (benign prostatic hyperplasia) 600.00 ; Tobacco use disorder 305.1 ; Generalized osteoarthrosis, unspecified site 715.00 ; Anxiety 300.00 ; GERD (gastroesophageal reflux disease) 530.81 and Hypercholesteremia 272.0 [facility] [address] 63065- 8716 Jan, [facility] [address] 93743- 1125 Jan, [facility] [address] [place] [address] 2546 Jan, [place] [address] [place] [id number] [place] [address] 19800- 6646 Jan, Seizures 780.39 ; COPD (chronic obstructive pulmonary disease) 496 ; Chronic pain due to injury 338.21 ; BPH (benign prostatic hyperplasia) 600.00 ; Tobacco use disorder 305.1 ; Generalized osteoarthrosis, unspecified site 715.00 ; Encounter for long-term (current) use of other medications V58.69 ; GERD (gastroesophageal reflux disease) 530.81 ; Hypercholesteremia 272.0 and Depression 311 [place] [address] 77703- 8183 Jan, [place] [address] 45772- 2047 Jan, Chronic pain due to injury 338.21 [place] [address] 23561- 5796 Dec, [place] [address] 69806- 4084 Dec, Seizures 780.39 ; COPD (chronic obstructive [...] dioxide poisoning 2013 Hospitalization History [facility] [place]- CP and SOB 10/17/2017
--- OUTSIDE RECORDS SUMMARY | 2018-05-25 14:51 | XMS REPORT ---
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 Name Role Phone YUMIKO MICHEL Unavailable PROBLEMS Type Condition ICD9-CM Code BTX89-IR Code Onset Dates Condition Status SNOMED Code Problem Generalized osteoarthritis M15.9 Active 886064551 Problem LEROY (generalized anxiety disorder) F41.1 Active 96104333 Problem BPH (benign prostatic hyperplasia) N40.0 Active 562683089 Problem COPD (chronic obstructive pulmonary disease) J44.9 Active 48951111 Problem Tobacco abuse Z72.0 Active 44338783 Problem Chronic pain G89.29 Active 76159343 Problem Seizures R56.9 Active 32305271 Problem Post traumatic seizure disorder R56.1 Active 03142345 Problem Gastroesophageal reflux disease, esophagitis presence not specified K21.9 Active 241922298 Problem Irritable bladder N32.89 Active 748754271 Problem Major depressive disorder, recurrent episode F33.9 Active 892170379 Problem Environmental allergies Z91.09 Active 609414113 Problem Hypercholesterolemia E78.00 Active 42435884 ALLERGIES No Information ENCOUNTERS Encounter Location Date Diagnosis [place] [id number] [address] November, Medicare annual wellness visit, initial Z00.00 [facility] [address], [place] [address] Oct, Chronic pain G89.29 [place] [address] [place] [id number] [place] [address] 00948- 6314 Sep, [facility] [id number] [place] [address] 26643- 1969 Sep, COPD (chronic obstructive pulmonary disease) J44.9 ; Tobacco abuse Z72.0 ; Major depressive disorder, recurrent episode F33.9 and Hypercholesterolemia E78.00 [facility] [id number] [place] [address] 00570- 8859 Sep, [facility] [address] [address]- 3682 Sep, Hypercholesterolemia E78.00 [facility] [id number] [place] [address] 45274- 2555 Sep, Chronic pain G89.29 ; COPD (chronic obstructive pulmonary disease) J44.9 ; Major depressive disorder, recurrent episode F33.9 ; Post traumatic seizure disorder R56.1 and Hypercholesterolemia E78.00 [place] [address] [address]- 1435 Sep, Chronic pain G89.29 [facility] [address] [address] [id number] [place] [address] 95321- 4216 Aug, Major depressive disorder, recurrent episode F33.9 and Gastroesophageal reflux disease, esophagitis presence not specified K21.9 [place] [address] [address]- [address]37 Aug, Chronic pain G89.29 [facility] [address] 57551- 6984 Jul, Other chronic pain G89.29 and Anxiety F41.9 [facility] [place] [address] [address] [id number] [place] [address] 47234- 6830 Jun, Chronic pain G89.29 and Seizures R56.9 [facility] [id number] [place] [address] 33027- 6197 Jun, Other chronic pain G89.29 and Anxiety F41.9 [facility] [address] 85222- 7018 May, COPD (chronic obstructive pulmonary disease) J44.9 [facility] [id number] [place] [address] 90303- 0023 16 May, 2017 Other chronic pain G89.29 and Anxiety F41.9 [facility] [id number] [place] [address] 88242- 9857 Apr, Other chronic pain G89.29 and Anxiety F41.9 [facility] [id number] [place] [address] 58081- 5214 Mar, Anxiety F41.9 and Other chronic pain G89.29 [facility] [address] [address]- 20[address] Feb, [facility] [id number] [place] [address] 10194- 5647 Feb, Anxiety F41.9 and Other chronic pain G89.29 [facility] [address] [id number] [place] [address] 69170- 3388 Feb, [facility] [address] [id number] [place] [address] 46432- 7815 Feb, COPD (chronic obstructive pulmonary disease) J44.9 ; Sleep apnea due to high altitude G47.31 and Oxygen desaturation during sleep G47.34 [facility] [id number] [place] [address] 58841- 3975 Jan, Other chronic pain G89.29 and Anxiety F41.9 [facility] [id number] [place] [address] 65047- 7697 Jan, [facility] [id number] [place] [address] 37418- 9702 Dec, Anxiety F41.9 and Other chronic pain G89.29 [facility] [id number] [place] [address] 07603- 8380 Dec, [facility] [address] [id number] [place] [address] 39974- 9869 Dec, [facility] [id number] [place] [address] 14336- 4957 Dec, Seizures R56.9 ; Chronic pain G89.29 [...] and COPD (chronic obstructive pulmonary disease) J44.9 [facility] [place] [address] [address] [id number] [place] [address] 97356- 1248 Dec, [facility] [address] 68791- 0626 Dec, [facility] [address] 69917- 5401 Dec, Generalized osteoarthritis M15.9 and Anxiety F41.9 [facility] [address] [place] [address] [id number] [place] [address] 26255- 4815 November, Status post shoulder surgery Z98.890 [facility] [address] [address] [id number] [place] [address] 58930- 5794 November, Generalized osteoarthritis M15.9 and Anxiety F41.9 [facility] [address] [address] [id number] [place] [address] 73339- 7345 Oct, [facility] [address] [address] [id number] [place] [address] 93492- 0474 Oct, Bilateral hearing loss, unspecified hearing loss [...] ; Anxiety F41.9 and Environmental allergies Z91.09 [place] [address] [place] [address] Oct, Chronic pain G89.29 and LEROY (generalized anxiety disorder) F41.1 [facility] [address] [address] [id number] [place] [address] 97331- 8419 Sep, [facility] [address] 37318- 0844 Sep, Tear of right rotator cuff, unspecified [...] disease) J44.9 and Hearing reduced, bilateral H91.93 [facility] [address] 98839- 3699 Sep, LEROY (generalized anxiety disorder) F41.1 [facility] [address] 22897- 0199 Aug, [place] [address] 83926- 7781 Aug, Tear of right rotator cuff, unspecified tear extent M75.101 [place] [address] 41249- 7673 Aug, Seizures R56.9 ; Chronic pain G89.29 ; Generalized osteoarthritis M15.9 ; COPD (chronic obstructive pulmonary disease) J44.9 ; LEROY (generalized anxiety disorder) F41.1 ; Gastroesophageal reflux disease, esophagitis presence not specified K21.9 ; Scabies B86 ; Hypercholesterolemia E78.00 ; Irritable bladder N32.89 and Edema, unspecified type R60.9 [facility] [place] [address] [address] [id number] [place] [address] 99081- 6490 Jul, Major depressive disorder, recurrent episode F33.9 [facility] [place] [address] [address] [id number] [place] [address] 34573- 4929 Jul, Seizures R56.9 ; Hypercholesterolemia E78.00 ; BPH (benign prostatic hyperplasia) N40.0 ; Major depressive disorder, recurrent episode F33.9 and Edema, unspecified type R60.9 [facility] [place] [address] [place] [address] [id number] [place] [address] 08277- 5598 Jul, Chronic pain G89.29 and LEROY (generalized anxiety disorder) F41.1 [place] [id number] [place] [address] 87060- 0172 Jul, Seizures R56.9 ; COPD (chronic obstructive [...] shoulder M25.511 and Other chronic pain G89.[address] [address]- [address]75 Jun, [place] [id number] [place] [address] 17540- 9357 May, [place] [id number] [place] [address] 33865- 2896 Apr, [address] 59026- 4565 Apr, Seizures R56.9 ; COPD (chronic obstructive pulmonary disease ) J44.9 ; BPH (benign prostatic hyperplasia) N40.0 ; Chronic pain G89.29 ; Tobacco abuse Z72.0 ; LEROY (generalized anxiety disorder) F41.1 ; Environmental allergies Z91.09 ; Irritable bladder N32.89 and Hypercholesterolemia E78.[address] 62757- 8435 Mar, [facility] [address] [address]- 6192 Mar, [facility] [id number] [place] [address] 85698- 5898 Mar, [facility] [id number] [place] [address] 74918- 1739 Mar, [facility] [id number] [place] [address] 43317- 3429 Feb, [facility] [id number] [place] [address] 14295- 5440 Feb, Chronic pain G89.29 [facility] [address] [id number] [place] [address] 66324- 6030 Feb, [facility] [address] [id number] [place] [address] 75566- 5740 Jan, [facility] [id number] [place] [address] 17719- 6382 Dec, [facility] [address] [id number] [place] [address] 54205- 7962 Dec, [facility] [address] [address] [id number] [place] [address] 96729- 7117 Dec, Seizures R56.9 ; COPD (chronic obstructive pulmonary disease ) J44.9 ; Chronic pain G89.29 ; BPH (benign prostatic hyperplasia) N40.0 ; Generalized osteoarthritis M15.9 ; Hypercholesterolemia E78.0 ; Overactive bladder N32.81 ; Insomnia, unspecified type G47.00 ; Other depression F32.8 ; Environmental allergies Z91.09 and Gastroesophageal reflux disease, esophagitis presence not specified K21.9 [facility] [id number] [place] [address] 26466- 5798 November, Chronic pain due to trauma G89.21 and Anxiety F41.9 [facility] [id number] [place] [address] 20593- 0507 Oct, [facility] [id number] [place] [address] 11640- 5481 Sep, [facility] [id number] [place] [address] 66651- 2288 Sep, [facility] [id number] [place] [address] 43726- 9875 Sep, [facility] [address] [id number] [place] [address] 26458- 7200 Sep, Seizures R56.9 ; Major depressive disorder, recurrent episode F33.9 and LEROY (generalized anxiety disorder) F41.1 [facility] [address] [id number] [place] [address] 83384- 6165 Aug, [facility] [address] [place] [id number] [place] [address] 92054- 3395 Aug, COPD (chronic obstructive pulmonary disease) J44.9 ; Chronic pain G89.29 ; BPH (benign prostatic hyperplasia) N40.0 ; Tobacco abuse Z72.0 ; Generalized osteoarthritis M15.9 ; Seizures R56.9 ; Overactive bladder N32.81 ; Depression F32.9 and Anxiety F41.9 [facility] [address] [place] [address] 63453- 5672 Jul, Essential (primary) hypertension I10 ; Pure hypercholesterolemia E78.0 ; Generalized osteoarthrosis, unspecified site 715.00 and Other long term care pharmacist (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 Z79.899 [facility] [address], [place] [address]- 1372 Jul, [facility] [address] [place] [id number] [place] [address] 28860- 3834 Jul, [facility] [id number] [place] [address] 30616- 7590 Jun, [facility] [id number] [place] [address] 59134- 4007 May, [facility] [id number] [place] [address] 45621- 1726 Apr, [place] [address] 07055- 7661 Apr, Seizures R56.9 ; COPD (chronic obstructive pulmonary disease ) J44.9 ; Chronic pain G89.29 ; BPH (benign prostatic hyperplasia) N40.0 ; Tobacco abuse Z72.0 ; Generalized osteoarthritis M15.9 ; Insomnia G47.00 ; Anxiety F41.9 and GERD (gastroesophageal reflux disease) K21.9 [place] [address] 15966- 6141 Apr, [place] [address] 04923- 1459 Mar, [address] 71304- 2305 Feb, Major depression, recurrent 296.30 and Generalized anxiety disorder 300.[address] 98891- 3971 Feb, [address] 55275- 2929 Feb, [place] [address] 13768- 6257 Jan, Chronic pain due to injury 338.21 ; Seizures 780.39 ; COPD ( chronic obstructive pulmonary disease) 496 ; BPH (benign prostatic hyperplasia) 600.00 ; Tobacco use disorder 305.1 ; Generalized osteoarthrosis, unspecified site 715.00 ; Anxiety 300.00 ; GERD (gastroesophageal reflux disease) 530.81 and Hypercholesteremia 272.[address] 66472- 3513 Jan, [place] [address] 29280- 7009 Jan, [place] [address] 00671- 2546 Jan, [facility] [place] [address] [place] [address]- 2546 Jan, Seizures 780.39 ; COPD (chronic obstructive pulmonary disease) 496 ; Chronic pain due to injury 338.21 ; BPH (benign prostatic hyperplasia) 600.00 ; Tobacco use disorder 305.1 ; Generalized osteoarthrosis, unspecified site 715.00 ; Encounter for long-term (current) use of other medications V58.69 ; GERD (gastroesophageal reflux disease) 530.81 ; Hypercholesteremia 272.0 and Depression [address] [place] [address] [id number] [address]- 2546 Jan, [facility] [place] [address] [place] [address] [id number] [place] [address] 07539- 2546 Jan, Chronic pain due to injury 338.21 [address] [place] [address] 57336- 9936 Dec, [facility] [place] [address] [place] [address] [id number] [place] [address] 12737- 2546 Dec, Seizures 780.39 ; COPD (chronic obstructive pulmonary disease) 496 ; Chronic pain due to injury 338.21 ; Environmental allergies V15.09 ; GERD (gastroesophageal reflux disease) 530.81 ; Essential hypertension 401.9 ; Psoriasis 696.1 ; PTSD (post-traumatic stress disorder) 309.81 and Depression (emotion) 311 IMMUNIZATIONS No Known Immunizations SOCIAL HISTORY Never Assessed REASON FOR VISIT Oxycodone and Alprazolam- 03/24 PLAN OF CARE VITAL SIGNS MEDICATIONS Medication Instructions Dosage Frequency Start Date End Date Duration Status Percocet 10-325 MG Orally 3 times a day 1 tablet as needed 8h Feb, 28 days Active Alprazolam 0.5 MG Orally [...] dioxide poisoning 2013 Hospitalization History [facility] [place]- CP and SOB 10/17/2017
--- OUTSIDE RECORDS SUMMARY | 2018-05-25 14:51 | XMS REPORT ---
Author Author KAYLYNN Rabago Organization [facility] Address [address] [place] [address] Care Team Providers Care Contract Driver Name Role Phone veraDENISHA KAYLYNN Unavailable PROBLEMS Type Condition ICD9-CM Code CRT44-HI Code Onset Dates Condition Status SNOMED Code Problem Generalized osteoarthritis M15.9 Active 055720337 Problem LEROY (generalized anxiety disorder) F41.1 Active 48532780 Problem BPH (benign prostatic hyperplasia) N40.0 Active 791332750 Problem COPD (chronic obstructive pulmonary disease) J44.9 Active 52226143 Problem Tobacco abuse Z72.0 Active 46213310 Problem Chronic pain G89.29 Active 24389134 Problem Seizures R56.9 Active 90661930 Problem Post traumatic seizure disorder R56.1 Active 05589488 Problem Gastroesophageal reflux disease, esophagitis presence not specified K21.9 Active 816132579 Problem Irritable bladder N32.89 Active 073767658 Problem Major depressive disorder, recurrent episode F33.9 Active 493253342 Problem Environmental allergies Z91.09 Active 412257192 Problem Hypercholesterolemia E78.00 Active 42243603 ALLERGIES No Information ENCOUNTERS Encounter Location Date Diagnosis [place] [id number] [place] [address] 53428- 2542 November, Medicare annual wellness visit, initial Z00.00 [facility] [address] [address] Oct, Chronic pain G89.29 [facility] [address] [place] [address] 99576- 1732 Sep, [facility] [address] [place] [address] 38474- 2993 Sep, COPD (chronic obstructive pulmonary disease) J44.9 ; Tobacco abuse Z72.0 ; Major depressive disorder, recurrent episode F33.9 and Hypercholesterolemia E78.00 [facility] [address] [place] [id number] [place] [address] 21629- 1164 Sep, [place] [address] 31109- 4831 Sep, Hypercholesterolemia E78.00 [place] [address] [place] [id number] [place] [address] 36647- 3743 Sep, Chronic pain G89.29 ; COPD (chronic obstructive pulmonary disease) J44.9 ; Major depressive disorder, recurrent episode F33.9 ; Post traumatic seizure disorder R56.1 and Hypercholesterolemia E78.00 [place] [address] 16710- 8314 Sep, Chronic pain G89.29 [place] [address] 36927- 1672 Aug, Major depressive disorder, recurrent episode F33.9 and Gastroesophageal reflux disease, esophagitis presence not specified K21.9 [place] [address] 85557- 1300 Aug, Chronic pain G89.29 [place] [address] 71575- 6666 Jul, Other chronic pain G89.29 and Anxiety F41.9 [place] [address] [place] [id number] [place] [address] 51045- 2567 Jun, Chronic pain G89.29 and Seizures R56.9 [place] [address] [place] [id number] [place] [address] 92023- 9949 Jun, Other chronic pain G89.29 and Anxiety F41.9 [place] [address] 67289- 4812 May, COPD (chronic obstructive pulmonary disease) J44.9 [place] [address] [place] [id number] [place] [address] 36166- 2851 May, Other chronic pain G89.29 and Anxiety F41.9 [facility] [address] [place] [id number] [place] [address] 56215- 7669 Apr, Other chronic pain G89.29 and Anxiety F41.9 [facility] [address] [place] [id number] [place] [address] 60137- 9650 Mar, Anxiety F41.9 and Other chronic pain G89.29 [facility] [address] 24740- 0510 Feb, [facility] [address] 63374- 4163 Feb, Anxiety F41.9 and Other chronic pain G89.29 [facility] [address] [place] [id number] [place] [address] 38758- 6047 Feb, [facility] [address] 13527- 4512 Feb, COPD (chronic obstructive pulmonary disease) J44.9 ; Sleep apnea due to high altitude G47.31 and Oxygen desaturation during sleep G47.34 [facility] [address] [place] [id number] [place] [address] 65064- 9204 Jan, Other chronic pain G89.29 and Anxiety F41.9 [facility] [address] [place] [id number] [place] [address] 62069- 4480 Jan, [facility] [address] 80320- 2673 Dec, Anxiety F41.9 and Other chronic pain G89.29 [facility] [address] [place] [id number] [place] [address] 70299- 8816 Dec, [facility] [address] [place] [id number] [place] [address] 25383- 1036 Dec, [facility] [address] [place] [id number] [place] [address] 70070- 1537 Dec, Seizures R56.9 ; Chronic pain G89.29 [...] and COPD (chronic obstructive pulmonary disease) J44.9 [place] [address] [place] [id number] [place] [address] 02512- 6999 Dec, [place] [address] 84642- 0779 Dec, [place] [address] [place] [address]- 2915 Dec, Generalized osteoarthritis M15.9 and Anxiety F41.9 [place] [address] 13741- 7228 November, Status post shoulder surgery Z98.890 [place] [address] [place] [id number] [place] [address] 12652- 0742 November, Generalized osteoarthritis M15.9 and Anxiety F41.9 [place] [address] [place] [id number] [place] [address] 18000- 3423 Oct, [place] [address] [place] [id number] [place] [address] 53633- 4259 Oct, Bilateral hearing loss, unspecified hearing loss [...] ; Anxiety F41.9 and Environmental allergies Z91.09 [place] [address] [place] [id number] [place] [address] 91088- 2693 Oct, Chronic pain G89.29 and LEROY (generalized anxiety disorder) F41.1 [place] [address] [place] [id number] [place] [address] 05792- 6730 Sep, [place] [address] 14767- 9089 Sep, Tear of right rotator cuff, unspecified [...] disease) J44.9 and Hearing reduced, bilateral H91.93 [place] [id number] [place] [address] 24683- 4387 Sep, LEROY (generalized anxiety disorder) F41.1 [place] [address] [place] [id number] [place] [address] 84188- 1153 Aug, [place] [address] 51886- 8418 Aug, Tear of right rotator cuff, unspecified tear extent M75.101 [place] [address] [place] [id number] [place] [address] 46967- 2991 Aug, Seizures R56.9 ; Chronic pain G89.29 ; Generalized osteoarthritis M15.9 ; COPD (chronic obstructive pulmonary disease) J44.9 ; LEROY (generalized anxiety disorder) F41.1 ; Gastroesophageal reflux disease, esophagitis presence not specified K21.9 ; Scabies B86 ; Hypercholesterolemia E78.00 ; Irritable bladder N32.89 and Edema, unspecified type R60.9 [place] [id number] [place] [address] 51182- 7437 Jul, Major depressive disorder, recurrent episode F33.9 [place] [address] [place] [address] 66882- 7006 Jul, Seizures R56.9 ; Hypercholesterolemia E78.00 ; BPH (benign prostatic hyperplasia) N40.0 ; Major depressive disorder, recurrent episode F33.9 and Edema, unspecified type R60.9 [place] [address] [place] [id number] [place] [address] 88547- 9734 Jul, Chronic pain G89.29 and LEROY (generalized anxiety disorder) F41.1 [place] [address] [place] [id number] [place] [address] 43482- 3335 Jul, Seizures R56.9 ; COPD (chronic obstructive [...] shoulder M25.511 and Other chronic pain G89.29 [place] [address] [place] [id number] [place] [address] 00897- 1470 Jun, [place] [address] [place] [id number] [place] [address] 89024- 4674 May, [place] [address] [place] [id number] [place] [address] 12093- 0501 Apr, [place] [address] 13359- 6276 Apr, Seizures R56.9 ; COPD (chronic obstructive pulmonary disease ) J44.9 ; BPH (benign prostatic hyperplasia) N40.0 ; Chronic pain G89.29 ; Tobacco abuse Z72.0 ; LEROY (generalized anxiety disorder) F41.1 ; Environmental allergies Z91.09 ; Irritable bladder N32.89 and Hypercholesterolemia E78.00 [place] [address] [place] [address]- 7266 Mar, [facility] [address] [place] [id number] [place] [address] 02729- 4586 Mar, [facility] [address] [place] [address] 37848- 0927 Mar, [facility] [address] [place] [id number] [place] [address] 84474- 1294 Mar, [facility] [address] [place] [id number] [place] [address] 88852- 6734 Feb, [facility] [address] [place] [id number] [place] [address] 11051- 2960 Feb, Chronic pain G89.29 [facility] [address] [place] [id number] [place] [address] 78021- 7775 Feb, [facility] [address] [place] [id number] [place] [address] 11179- 4860 Jan, [facility] [address] [place] [id number] [place] [address] 18761- 3656 Dec, [facility] [address] [place] [id number] [place] [address] 88516- 7879 Dec, [facility] [address] [place] [address] 41051- 0861 Dec, Seizures R56.9 ; COPD (chronic obstructive pulmonary disease ) J44.9 ; Chronic pain G89.29 ; BPH (benign prostatic hyperplasia) N40.0 ; Generalized osteoarthritis M15.9 ; Hypercholesterolemia E78.0 ; Overactive bladder N32.81 ; Insomnia, unspecified type G47.00 ; Other depression F32.8 ; Environmental allergies Z91.09 and Gastroesophageal reflux disease, esophagitis presence not specified K21.9 [facility] [address] [address]- 1117 November, Chronic pain due to trauma G89.21 and Anxiety F41.9 [facility] [address] [place] [id number] [address]- 5616 Oct, [facility] [address] [place] [id number] [place] [address] 18562- 0377 Sep, [facility] [address] [place] [id number] [place] [address] 21698- 1534 Sep, [facility] [address] [place] [id number] [place] [address] 12314- 0715 Sep, [facility] [address] [place] [id number] [place] [address] 07120- 6059 Sep, Seizures R56.9 ; Major depressive disorder, recurrent episode F33.9 and ELROY (generalized anxiety disorder) F41.1 [facility] [address] [place] [id number] [place] [address] 18457- 1754 Aug, [facility] [address] [place] [id number] [place] [address] 86748- 3881 02 Aug, 2015 COPD (chronic obstructive pulmonary disease) J44.9 ; Chronic pain G89.29 ; BPH (benign prostatic hyperplasia) N40.0 ; Tobacco abuse Z72.0 ; Generalized osteoarthritis M15.9 ; Seizures R56.9 ; Overactive bladder N32.81 ; Depression F32.9 and Anxiety F41.9 [facility] [address] [place] [address] 20061- 9531 Jul, Essential (primary) hypertension I10 ; Pure hypercholesterolemia E78.0 ; Generalized osteoarthrosis, unspecified site 715.00 and Other intermediate designer (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 Z79.899 [facility] [address] [place] [id number] [place] [address] 67702- 4052 Jul, [facility] [address] [place] [id number] [place] [address] 02826- 1369 Jul, [facility] [address] [place] [id number] [place] [address] 18344- 4706 Jun, [facility] [address] [place] [id number] [place] [address] 79835- 5815 May, [facility] [address] [place] [id number] [place] [address] 55527- 7158 Apr, [facility] [address] [place] [id number] [place] [address] 46382- 4928 Apr, Seizures R56.9 ; COPD (chronic obstructive pulmonary disease ) J44.9 ; Chronic pain G89.29 ; BPH (benign prostatic hyperplasia) N40.0 ; Tobacco abuse Z72.0 ; Generalized osteoarthritis M15.9 ; Insomnia G47.00 ; Anxiety F41.9 and GERD (gastroesophageal reflux disease) K21.9 [place] [address] [place] [id number] [place] [address] 47004- 8421 Apr, [facility] [address] [place] [id number] [place] [address] 79243- 5223 Mar, [place] [address] 88615- 7396 Feb, Major depression, recurrent 296.30 and Generalized anxiety disorder 300.02 [place] [address] [place] [id number] [place] [address] 44720- 6233 Feb, [facility] [address] 39213- 0699 Feb, [place] [address] [place] [id number] [place] [address] 82188- 4067 Jan, Chronic pain due to injury 338.21 ; Seizures 780.39 ; COPD ( chronic obstructive pulmonary disease) 496 ; BPH (benign prostatic hyperplasia) 600.00 ; Tobacco use disorder 305.1 ; Generalized osteoarthrosis, unspecified site 715.00 ; Anxiety 300.00 ; GERD (gastroesophageal reflux disease) 530.81 and Hypercholesteremia 272.0 [facility] [address] [place] [id number] [place] [address] 92015- 7631 Jan, [facility] [address] [place] [id number] [place] [address] 19537- 3421 Jan, [facility] [address] [place] [address]- 2546 Jan, [place] [address] [place] [address] 28876- 7183 Jan, Seizures 780.39 ; COPD (chronic obstructive pulmonary disease) 496 ; Chronic pain due to injury 338.21 ; BPH (benign prostatic hyperplasia) 600.00 ; Tobacco use disorder 305.1 ; Generalized osteoarthrosis, unspecified site 715.00 ; Encounter for long-term (current) use of other medications V58.69 ; GERD (gastroesophageal reflux disease) 530.81 ; Hypercholesteremia 272.0 and Depression [address] [place] [id number] [place] [address] 19986- 3904 Jan, [place] [address] [place] [id number] [place] [address] 47304- 0208 Jan, Chronic pain due to injury 338.21 [place] [address] [place] [id number] [place] [address] 22922- 8924 Dec, [place] [address] [place] [address] 102463- 5731 Dec, Seizures 780.39 ; COPD (chronic obstructive pulmonary disease) 496 ; Chronic pain due to injury 338.21 ; Environmental allergies V15.09 ; GERD (gastroesophageal reflux disease) 530.81 ; Essential hypertension 401.9 ; Psoriasis 696.1 ; PTSD (post-traumatic stress disorder) 309.81 and Depression (emotion) 311 IMMUNIZATIONS No Known Immunizations SOCIAL HISTORY Never Assessed REASON FOR VISIT FYI PLAN OF CARE VITAL SIGNS MEDICATIONS Unknown [...] dioxide poisoning 2013 Hospitalization History [facility]- CP and [facility] 10/17/2017
--- OUTSIDE RECORDS SUMMARY | 2018-05-25 14:52 | XMS REPORT ---
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 Name Role Phone YUMIKO MICHEL Unavailable PROBLEMS Type Condition ICD9-CM Code GSX34-DD Code Onset Dates Condition Status SNOMED Code Problem BPH (benign prostatic hyperplasia) N40.0 Active 798505841 Problem Major depressive disorder, recurrent episode F33.9 Active 093126892 Problem LEROY (generalized anxiety disorder) F41.1 Active 22282218 Problem Spinal stenosis of lumbar region without neurogenic claudication M48.061 Active 54014242 Problem Post traumatic seizure disorder R56.1 Active 10430429 Problem Hypercholesterolemia E78.00 Active 28344889 Problem Irritable bladder N32.89 Active 314634976 Problem Gastroesophageal reflux disease, esophagitis presence not specified K21.9 Active 171316605 Problem Environmental allergies Z91.09 Active 768596458 Problem Tobacco abuse Z72.0 Active 48056110 Problem Chronic pain G89.29 Active 49231909 Problem Seizures R56.9 Active 60497708 Problem COPD (chronic obstructive pulmonary disease) J44.9 Active 99241813 Problem Generalized osteoarthritis M15.9 Active 194628641 ALLERGIES No Information ENCOUNTERS Encounter Location Date Diagnosis [facility] [id number] [place] [address] 39859- 5703 Feb, Spinal stenosis of lumbar region without neurogenic claudication M48.061 and Seizures R56.9 [facility] [id number] [place] [address] 22680- 3277 Feb, Chronic pain G89.29 [facility] [id number] [place] [address] 28452- 9776 Feb, [facility] [id number] [place] [address] 13524- 0209 Feb, [place] [id number] [address] Jan, [facility] [id number] [place] [address] 29418- 6491 Jan, [facility] [id number] [place] [address] 75877- 9744 Jan, [facility] [id number] [place] [address] 00062- 8534 Jan, Chronic pain G89.29 [place] [id number] [place] [address] 49270- 8402 Jan, Generalized osteoarthritis M15.9 ; COPD (chronic obstructive pulmonary disease) J44.9 ; LEROY (generalized anxiety disorder) F41.1 and Gastroesophageal reflux disease, esophagitis presence not specified K21.9 [place] [id number] [place] [address] 98915- 6418 Dec, Chronic pain G89.29 [place] [id number] [place] [address] 40030- 0465 Dec, Anxiety F41.9 and COPD (chronic obstructive pulmonary disease) J44.9 [place] [id number] [place] [address] 84735- 7480 November, Chronic pain G89.29 [place] [id number] [place] [address] 66891- 4533 November, Medicare annual wellness visit, initial Z00.00 ; COPD ( chronic obstructive pulmonary disease) J44.9 ; Major depressive disorder, recurrent episode F33.9 ; Gastroesophageal reflux disease, esophagitis presence not specified K21.9 ; Hypercholesterolemia E78.00 ; Seizures R56.9 ; Chronic pain G89.29 ; BPH (benign prostatic hyperplasia) N40.0 and Encounter for immunization Z23 [place] [id number] [place] [address] 75319- 3952 November, Chronic pain G89.29 [place] [id number] [place] [address] 51466- 4446 Oct, [facility] [address] 86981- 9487 Oct, Chronic pain G89.29 [place] [address] 78456- 5149 Sep, [place] [address] 18471- 1946 Sep, COPD (chronic obstructive pulmonary disease) J44.9 ; Tobacco abuse Z72.0 ; Major depressive disorder, recurrent episode F33.9 and Hypercholesterolemia E78.00 [place] [address] 57956- 2368 Sep, [place] [address] 95523- 3488 Sep, Hypercholesterolemia E78.00 [place] [address] 67041- 3805 Sep, Chronic pain G89.29 ; COPD (chronic obstructive pulmonary disease) J44.9 ; Major depressive disorder, recurrent episode F33.9 ; Post traumatic seizure disorder R56.1 and Hypercholesterolemia E78.00 [place] [id number] [place] [address] 89669- 0595 Sep, Chronic pain G89.29 [place] [address] 61860- 4541 07 Aug, 2017 Major depressive disorder, recurrent episode F33.9 and Gastroesophageal reflux disease, esophagitis presence not specified K21.9 [place] [id number] [place] [address] 60483- 7586 06 Aug, 2017 Chronic pain G89.29 [place] [address] 50712- 1960 Jul, Other chronic pain G89.29 and Anxiety F41.9 [place] [address] 95387- 4132 15 Jun, 2017 Chronic pain G89.29 and Seizures R56.9 [place] [address] 75801- 8776 Jun, Other chronic pain G89.29 and Anxiety F41.9 [place] [address] 58258- 7655 May, COPD (chronic obstructive pulmonary disease) J44.9 [place] [address] 52294- 0225 May, Other chronic pain G89.29 and Anxiety F41.9 [place] [address] 40130- 3588 Apr, Other chronic pain G89.29 and Anxiety F41.9 [place] [address] 81954- 7549 Mar, Anxiety F41.9 and Other chronic pain G89.29 [place] [address] 51111- 8906 Feb, [place] [address] 23624- 0930 Feb, Anxiety F41.9 and Other chronic pain G89.29 [place] [address] 43347- 5450 Feb, [place] [address] 06253- 4535 Feb, COPD (chronic obstructive pulmonary disease) J44.9 ; Sleep apnea due to high altitude G47.31 and Oxygen desaturation during sleep G47.34 [place] [address] 48981- 3015 Jan, Other chronic pain G89.29 and Anxiety F41.9 [place] [address] [id number] [place] [address] 25238- 6657 Jan, [place] [id number] [place] [address] 61858- 2264 Dec, Anxiety F41.9 and Other chronic pain G89.29 [facility] [id number] [place] [address] 54072- 1494 16 Dec, 2016 [facility] [id number] [place] [address] 37806- 7627 Dec, [facility] [address] 68760- 0297 Dec, Seizures R56.9 ; Chronic pain G89.29 [...] and COPD (chronic obstructive pulmonary disease) J44.9 [place] [id number] [place] [address] 00230- 5327 Dec, [place] [id number] [place] [address] 21082- 1596 Dec, [place] [id number] [place] [address] 57293- 3246 Dec, Generalized osteoarthritis M15.9 and Anxiety F41.9 [place] [id number] [place] [address] 81645- 3498 November, Status post shoulder surgery Z98.890 [facility] [id number] [place] [address] 10258- 6129 November, Generalized osteoarthritis M15.9 and Anxiety F41.9 [facility] [id number] [place] [address] 08795- 3206 Oct, [facility] [id number] [place] [address] 33581- 9247 Oct, Bilateral hearing loss, unspecified hearing loss [...] ; Anxiety F41.9 and Environmental allergies Z91.09 [place] [address] 59492- 0896 Oct, Chronic pain G89.29 and LEROY (generalized anxiety disorder) F41.[address] 43942- 0190 Sep, [address] 95481- 0963 Sep, Tear of right rotator cuff, unspecified [...] disease) J44.9 and Hearing reduced, bilateral H91.93 [place] [address] 09954- 7569 Sep, LEROY (generalized anxiety disorder) F41.1 [place] [address] 13485- 9556 Aug, [place] [address] 43407- 2625 Aug, Tear of right rotator cuff, unspecified tear extent M75.101 [place] [address] [place] [address]- 7503 Aug, Seizures R56.9 ; Chronic pain G89.29 ; Generalized osteoarthritis M15.9 ; COPD (chronic obstructive pulmonary disease) J44.9 ; LEROY (generalized anxiety disorder) F41.1 ; Gastroesophageal reflux disease, esophagitis presence not specified K21.9 ; Scabies B86 ; Hypercholesterolemia E78.00 ; Irritable bladder N32.89 and Edema, unspecified type R60.9 [place] [id number] [place] [address] 33435- 6696 Jul, Major depressive disorder, recurrent episode F33.9 [place] [address] 21162- 0930 Jul, Seizures R56.9 ; Hypercholesterolemia E78.00 ; BPH (benign prostatic hyperplasia) N40.0 ; Major depressive disorder, recurrent episode F33.9 and Edema, unspecified type R60.9 [place] [address] 42434- 5706 Jul, Chronic pain G89.29 and LEROY (generalized anxiety disorder) F41.1 [place] [address] 16862- 4871 Jul, Seizures R56.9 ; COPD (chronic obstructive [...] shoulder M25.511 and Other chronic pain G89.29 [place] [id number] [place] [address] 04820- 1938 Jun, [place] [id number] [place] [address] 75227- 3270 May, [place] [address] [id number] [address] 2548 Apr, [facility] [id number] [place] [address] 05230 2545 Apr, Seizures R56.9 ; COPD (chronic obstructive pulmonary disease ) J44.9 ; BPH (benign prostatic hyperplasia) N40.0 ; Chronic pain G89.29 ; Tobacco abuse Z72.0 ; LEROY (generalized anxiety disorder) F41.1 ; Environmental allergies Z91.09 ; Irritable bladder N32.89 and Hypercholesterolemia E78.00 [facility] [id number] [place] [address] 32782 2546 Mar, [facility] [id number] [place] [address] 87022 2546 Mar, [facility] [id number] [place] [address] 42270 2546 Mar, [facility] [id number] [place] [address] 61284 2546 Mar, [facility] [id number] [place] [address] 55716 2546 Feb, [facility] [id number] [place] [address] 90883 2546 Feb, Chronic pain G89.29 [facility] [id number] [place] [address] 27758 2546 Feb, [facility] [id number] [place] [address] 03776 2546 Jan, [facility] [id number] [address] 2546 Dec, [facility] [id number] [place] [address] 05726 2546 Dec, [facility] [id number] [place] [address] 87444 2546 Dec, Seizures R56.9 ; COPD (chronic obstructive pulmonary disease ) J44.9 ; Chronic pain G89.29 ; BPH (benign prostatic hyperplasia) N40.0 ; Generalized osteoarthritis M15.9 ; Hypercholesterolemia E78.0 ; Overactive bladder N32.81 ; Insomnia, unspecified type G47.00 ; Other depression F32.8 ; Environmental allergies Z91.09 and Gastroesophageal reflux disease, esophagitis presence not specified K21.9 [place] [id number] [place] [address] 97755- 4379 November, Chronic pain due to trauma G89.21 and Anxiety F41.9 [place] [address] 81903- 1116 Oct, [place] [address] 00529- 3710 Sep, [place] [address] 39365- 9486 Sep, [place] [address] 22710- 5413 Sep, [place] [id number] [place] [address] 93983- 4667 Sep, Seizures R56.9 ; Major depressive disorder, recurrent episode F33.9 and LEROY (generalized anxiety disorder) F41.1 [place] [id number] [place] [address] 65803- 3252 Aug, [place] [id number] [place] [address] 90144- 7764 Aug, COPD (chronic obstructive pulmonary disease) J44.9 ; Chronic pain G89.29 ; BPH (benign prostatic hyperplasia) N40.0 ; Tobacco abuse Z72.0 ; Generalized osteoarthritis M15.9 ; Seizures R56.9 ; Overactive bladder N32.81 ; Depression F32.9 and Anxiety F41.9 [place] [id number] [place] [address] 25188- 6870 Jul, Essential (primary) hypertension I10 ; Pure hypercholesterolemia E78.0 ; Generalized osteoarthrosis, unspecified site 715.00 and Other shelter (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 Z79.899 [facility] [id number] [place] [address] 48315- 0398 Jul, [facility] [id number] [place] [address] 73875- 1404 Jul, [facility] [id number] [place] [address] 42527- 2993 Jun, [facility] [address] 85498- 8994 May, [facility] [address] 03617- 0816 Apr, [facility] [id number] [place] [address] 53210- 0762 Apr, Seizures R56.9 ; COPD (chronic obstructive pulmonary disease ) J44.9 ; Chronic pain G89.29 ; BPH (benign prostatic hyperplasia) N40.0 ; Tobacco abuse Z72.0 ; Generalized osteoarthritis M15.9 ; Insomnia G47.00 ; Anxiety F41.9 and GERD (gastroesophageal reflux disease) K21.9 [facility] [id number] [place] [address] 73576- 9978 Apr, [facility] [id number] [place] [address] 60546- 1448 Mar, [facility] [id number] [place] [address] 39155- 2283 Feb, Major depression, recurrent 296.30 and Generalized anxiety disorder 300.02 [facility] [id number] [place] [address] 02576- 7246 Feb, [facility] [id number] [place] [address] 77441- 4382 Feb, [facility] [id number] [place] [address] 05034- 9828 Jan, Chronic pain due to injury 338.21 ; Seizures 780.39 ; COPD ( chronic obstructive pulmonary disease) 496 ; BPH (benign prostatic hyperplasia) 600.00 ; Tobacco use disorder 305.1 ; Generalized osteoarthrosis, unspecified site 715.00 ; Anxiety 300.00 ; GERD (gastroesophageal reflux disease) 530.81 and Hypercholesteremia 272.0 [place] [id number] [place] [address] 29272- 4495 Jan, [facility] [id number] [place] [address] 33617- 8134 Jan, [place] [id number] [place] [address] 78683- 8743 Jan, [place] [id number] [place] [address] 43608- 7406 Jan, Seizures 780.39 ; COPD (chronic obstructive pulmonary disease) 496 ; Chronic pain due to injury 338.21 ; BPH (benign prostatic hyperplasia) 600.00 ; Tobacco use disorder 305.1 ; Generalized osteoarthrosis, unspecified site 715.00 ; Encounter for long-term (current) use of other medications V58.69 ; GERD (gastroesophageal reflux disease) 530.81 ; Hypercholesteremia 272.0 and Depression 311 [place] [id number] [place] [address] 61906- 6277 Jan, [place] [id number] [place] [address] 44779- 4256 Jan, Chronic pain due to injury 338.21 [place] [id number] [place] [address] 92970- 6668 Dec, [place] [id number] [place] [address] 82793- 0568 Dec, Seizures 780.39 ; COPD (chronic obstructive pulmonary disease) 496 ; Chronic pain due to injury 338.21 ; Environmental allergies V15.09 ; GERD (gastroesophageal reflux disease) 530.81 ; Essential hypertension 401.9 ; Psoriasis 696.1 ; PTSD (post-traumatic stress disorder) 309.81 and Depression (emotion) 311 IMMUNIZATIONS No Known Immunizations SOCIAL HISTORY Never Assessed REASON FOR VISIT Oxycodone and alprazolam due 01/26 PLAN OF CARE VITAL SIGNS MEDICATIONS Medication [...] dioxide poisoning 2013 Hospitalization History [facility]- CP and SOB 10/17/2017
--- OUTSIDE RECORDS SUMMARY | 2018-05-25 14:53 | XMS REPORT ---
Author Author YUMIKO MICHEL [facility] Address [address] [place] [address] Care Team Providers Care Slip Cover Seamstress Name Role Phone YUMIKO MICHEL Unavailable PROBLEMS Type Condition ICD9-CM Code [id number] Code Onset Dates Condition Status SNOMED Code Problem Generalized osteoarthritis M15.9 Active 173724914 Problem LEROY (generalized anxiety disorder) F41.1 Active 72305864 Problem BPH (benign prostatic hyperplasia) N40.0 Active 392929853 Problem COPD (chronic obstructive pulmonary disease) J44.9 Active 70474478 Problem Tobacco abuse Z72.0 Active 28465760 Problem Chronic pain G89.29 Active 71131198 Problem Seizures R56.9 Active 62381772 Problem Post traumatic seizure disorder R56.1 Active 80308813 Problem Gastroesophageal reflux disease, esophagitis presence not specified K21.9 Active 411265702 Problem Irritable bladder N32.89 Active 570554504 Problem Major depressive disorder, recurrent episode F33.9 Active 197539079 Problem Environmental allergies Z91.09 Active 705486482 Problem Hypercholesterolemia E78.00 Active 96141294 ALLERGIES No Information ENCOUNTERS Encounter Location Date Diagnosis [facility] [id number] [address] November, [facility] [address] [address] Oct, [facility] [address] [address] Oct, Chronic pain G89.29 [facility] [address] [address] Sep, [facility] [address] [address] Sep, COPD (chronic obstructive pulmonary disease) J44.9 ; Tobacco abuse Z72.0 ; Major depressive disorder, recurrent episode F33.9 and Hypercholesterolemia E78.00 [place] [id number] [address] Sep, [facility] [address] [address] Sep, Hypercholesterolemia E78.00 [place] [address] [address] Sep, Chronic pain G89.29 ; COPD (chronic obstructive pulmonary disease) J44.9 ; Major depressive disorder, recurrent episode F33.9 ; Post traumatic seizure disorder R56.1 and Hypercholesterolemia E78.00 [place] [address] [address] Sep, Chronic pain G89.29 [place] [address] [address] Aug, Major depressive disorder, recurrent episode F33.9 and Gastroesophageal reflux disease, esophagitis presence not specified K21.9 [place] [address] [address] Aug, Chronic pain G89.29 [place] [address] [address]- [address] Jul, Other chronic pain G89.29 and Anxiety F41.9 [place] [address] [place] [id number] [place] [address]304- 6514 Jun, Chronic pain G89.29 and Seizures R56.9 [place] [address] [place] [id number] [place] [address] 85690- 2866 Jun, Other chronic pain G89.29 and Anxiety F41.9 [place] [address] [address] May, COPD (chronic obstructive pulmonary disease) J44.9 [place] [address] [address]- [address] May, Other chronic pain G89.29 and Anxiety F41.9 [facility] [address] [place] [id number] [place] [address] 04349- 5932 Apr, Other chronic pain G89.29 and Anxiety F41.9 [facility] [address] [place] [id number] [place] [address] 82876- 89[address] Mar, Anxiety F41.9 and Other chronic pain G89.29 [facility] [address] [place] [id number] [place] [address] 96857- 2460 Feb, [facility] [address] [place] [id number] [place] [address] 59946- 7727 Feb, Anxiety F41.9 and Other chronic pain G89.29 [facility] [address] [place] [id number] [place] [address] 03450- 8501 Feb, [facility] [address] [place] [id number] [place] [address] 63376- 8257 Feb, COPD (chronic obstructive pulmonary disease) J44.9 ; Sleep apnea due to high altitude G47.31 and Oxygen desaturation during sleep G47.34 [place] [address] [place] [id number] [place] [address] 33973- 2546 Jan, Other chronic pain G89.29 and Anxiety F41.9 [facility] [address] [place] [id number] [place] [address] 67121- 3764 Jan, [facility] [address] [place] [id number] [place] [address] 97617- 4946 Dec, Anxiety F41.9 and Other chronic pain G89.29 [facility] [address] [place] [id number] [place] [address] 76835- 9152 Dec, [facility] [address] [place] [id number] [place] [address] 00240- 6883 Dec, [facility] [address] [place] [id number] [place] [address] 30833- 2537 Dec, Seizures R56.9 ; Chronic pain G89.29 [...] and COPD (chronic obstructive pulmonary disease) J44.9 [place] [address] 28[address]- 6483 Dec, [place] [address] [address]- [address] Dec, [place] [address] [address]- 96[address] Dec, Generalized osteoarthritis M15.9 and Anxiety F41.9 [place] [address] 23[address]- [address] November, Status post shoulder surgery Z98.890 [place] [address] [address]- [address] November, Generalized osteoarthritis M15.9 and Anxiety F41.9 [place] [address] 366[address]- [address] Oct, [place] [address] 7[address]- [address] Oct, Bilateral hearing loss, unspecified hearing loss [...] ; Anxiety F41.9 and Environmental allergies Z91.09 [place] [address] [place] [id number] [place] [address] 11576- 9950 Oct, Chronic pain G89.29 and LEROY (generalized anxiety disorder) F41.1 [place] [address] [place] [id number] [place] [address] 41397- 7137 Sep, [place] [address] 4[address]- [address] Sep, Tear of right rotator cuff, unspecified [...] disease) J44.9 and Hearing reduced, bilateral H91.[address] [address]- [address] Sep, LEROY (generalized anxiety disorder) F41.1 [place] [address] 0[address]- [address] Aug, [place] [address] [address]- 1674 Aug, Tear of right rotator cuff, unspecified tear extent M75.101 [place] [address] [place] [id number] [place] [address] 42702- 0461 Aug, Seizures R56.9 ; Chronic pain G89.29 ; Generalized osteoarthritis M15.9 ; COPD (chronic obstructive pulmonary disease) J44.9 ; LEROY (generalized anxiety disorder) F41.1 ; Gastroesophageal reflux disease, esophagitis presence not specified K21.9 ; Scabies B86 ; Hypercholesterolemia E78.00 ; Irritable bladder N32.89 and Edema, unspecified type R60.9 [place] [address] Jul, Major depressive disorder, recurrent episode F33.9 [place] [address] [place] [id number] [place] [address] 97965- 7338 Jul, Seizures R56.9 ; Hypercholesterolemia E78.00 ; BPH (benign prostatic hyperplasia) N40.0 ; Major depressive disorder, recurrent episode F33.9 and Edema, unspecified type R60.9 [place] [address] 6[address]- 6697 Jul, Chronic pain G89.29 and LEROY (generalized anxiety disorder) F41.1 [place] [address] 6[address]- 6[address] Jul, Seizures R56.9 ; COPD (chronic obstructive [...] shoulder M25.511 and Other chronic pain G89.29 [place] [address] [place] [id number] [place] [address] 08287- 8044 Jun, [place] [address] [place] [id number] [place] [address] 90951- 5888 May, [place] [address] 90861- 2583 Apr, [place] [address] 94252- 8463 Apr, Seizures R56.9 ; COPD (chronic obstructive pulmonary disease ) J44.9 ; BPH (benign prostatic hyperplasia) N40.0 ; Chronic pain G89.29 ; Tobacco abuse Z72.0 ; LEROY (generalized anxiety disorder) F41.1 ; Environmental allergies Z91.09 ; Irritable bladder N32.89 and Hypercholesterolemia E78.00 [facility] [address] [address] Mar, [facility] [address] [place] [id number] [place] [address] 73297- 3017 Mar, [facility] [address] [place] [id number] [place] [address] 63202- 0351 Mar, [facility] [address] 7[address]- 67[address] Mar, [facility] [address] [place] [id number] [place] [address] 31408- 4993 Feb, [facility] [address] [place] [id number] [place] [address] 89783- 8466 Feb, Chronic pain G89.29 [facility] [address] [place] [id number] [place] [address] 73181- 3345 Feb, [facility] [address] [place] [id number] [place] [address] 17485- 8968 Jan, [facility] [address] [place] [id number] [place] [address] 68970- 1885 Dec, [facility] [address] [place] [id number] [place] [address] 63308- 7227 Dec, [facility] [address] [place] [id number] [place] [address] 57267- 0898 Dec, Seizures R56.9 ; COPD (chronic obstructive pulmonary disease ) J44.9 ; Chronic pain G89.29 ; BPH (benign prostatic hyperplasia) N40.0 ; Generalized osteoarthritis M15.9 ; Hypercholesterolemia E78.0 ; Overactive bladder N32.81 ; Insomnia, unspecified type G47.00 ; Other depression F32.8 ; Environmental allergies Z91.09 and Gastroesophageal reflux disease, esophagitis presence not specified K21.9 [facility] [address] [place] [address] 50546- 6868 November, Chronic pain due to trauma G89.21 and Anxiety F41.9 [facility] [address] [address]- [address] Oct, [facility] [id number] [place] [address] 32998- 9206 Sep, [facility] [address] [address]- 40[address] Sep, [facility] [address] [place] [id number] [place] [address] 14611- 1815 Sep, [facility] [address] [place] [id number] [place] [address] 98762- 9537 Sep, Seizures R56.9 ; Major depressive disorder, recurrent episode F33.9 and LEROY (generalized anxiety disorder) F41.1 [place] [id number] [place] [address] 80691- 7037 Aug, [facility] [address] [place] [id number] [place] [address] 20731- 1439 Aug, COPD (chronic obstructive pulmonary disease) J44.9 ; Chronic pain G89.29 ; BPH (benign prostatic hyperplasia) N40.0 ; Tobacco abuse Z72.0 ; Generalized osteoarthritis M15.9 ; Seizures R56.9 ; Overactive bladder N32.81 ; Depression F32.9 and Anxiety F41.9 [facility] [address] [address]- [address] Jul, Essential (primary) hypertension I10 ; Pure hypercholesterolemia E78.0 ; Generalized osteoarthrosis, unspecified site 715.00 and Other emt intermediate (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 Z79.899 [facility] [address] [address]- 488[address] Jul, [facility] [id number] [place] [address] 52487- 9654 Jul, [facility] [address] [address]- 8737 Jun, [facility] [address] [place] [id number] [place] [address] 57669- 4733 May, [facility] [address] [place] [id number] [place] [address] 89947- 4406 Apr, [facility] [address] [place] [id number] [place] [address] 28802- 7640 Apr, Seizures R56.9 ; COPD (chronic obstructive pulmonary disease ) J44.9 ; Chronic pain G89.29 ; BPH (benign prostatic hyperplasia) N40.0 ; Tobacco abuse Z72.0 ; Generalized osteoarthritis M15.9 ; Insomnia G47.00 ; Anxiety F41.9 and GERD (gastroesophageal reflux disease) K21.[address] 244[address]- 8250 Apr, [address] [address]- 2975 Mar, [address] 54563- 6590 Feb, Major depression, recurrent 296.30 and Generalized anxiety disorder 300.[address] 90482- 5216 Feb, [place] [id number] [place] [address] 89622- 1309 Feb, [place] [id number] [place] [address] 69299- 8835 Jan, Chronic pain due to injury 338.21 ; Seizures 780.39 ; COPD ( chronic obstructive pulmonary disease) 496 ; BPH (benign prostatic hyperplasia) 600.00 ; Tobacco use disorder 305.1 ; Generalized osteoarthrosis, unspecified site 715.00 ; Anxiety 300.00 ; GERD (gastroesophageal reflux disease) 530.81 and Hypercholesteremia 272.0 [place] [id number] [place] [address] 52990- 5139 Jan, [address] 23127- 0108 Jan, [facility] [address] [place] [address] 54388- 3216 Jan, [facility] [address] [place] [id number] [place] [address] 91901- 1536 Jan, Seizures 780.39 ; COPD (chronic obstructive pulmonary disease) 496 ; Chronic pain due to injury 338.21 ; BPH (benign prostatic hyperplasia) 600.00 ; Tobacco use disorder 305.1 ; Generalized osteoarthrosis, unspecified site 715.00 ; Encounter for long-term (current) use of other medications V58.69 ; GERD (gastroesophageal reflux disease) 530.81 ; Hypercholesteremia 272.0 and Depression [address] [place] [address] [place] [id number] [place] [address] 43163- 3336 Jan, [place] [address] [place] [id number] [place] [address] 39347- 2436 Jan, Chronic pain due to injury 338.21 [place] [address] [place] [id number] [place] [address] 73497- 4478 Dec, [facility] [address] [place] [id number] [place] [address] 06451- 2828 Dec, Seizures 780.39 ; COPD (chronic obstructive pulmonary disease) 496 ; Chronic pain due to injury 338.21 ; Environmental allergies V15.09 ; GERD (gastroesophageal reflux disease) 530.81 ; Essential hypertension 401.9 ; Psoriasis 696.1 ; PTSD (post-traumatic stress disorder) 309.81 and Depression (emotion) 311 IMMUNIZATIONS No Known Immunizations SOCIAL HISTORY Never Assessed REASON FOR VISIT Percocet and Xanax - PLAN OF CARE VITAL SIGNS MEDICATIONS Medication Instructions Dosage Frequency Start Date End Date Duration Status Percocet 10-325 MG Orally 3 times a day 1 tablet as needed 8h Mar, 28 days Active Alprazolam 0.5 MG Orally [...] dioxide poisoning 2013 Hospitalization History [facility]- CP and SOB 10/17/2017
[2018-05-25 14:56] LABS: INR 1.1 (0.8-1.4); PROTHROMBIN TIME PATIENT 14.3 SEC (12.2-14.7)
--- NOTE | 2018-05-25 15:00 | Diagnostic Imaging Report ---
INDICATION: Chest pain and irregular heart rate. TIME OF EXAM: 02:52 p.m. Correlation is made with prior study 10/18/2017. The heart size is normal. The pulmonary vascularity is unremarkable. The lungs are clear. No infiltrate, effusion or pneumothorax is detected. IMPRESSION: No acute cardiopulmonary process is detected. Dictated by: Dictated on workstation # [id number]
[2018-05-25 15:04] LABS: ALANINE AMINOTRANSFERASE 32 U/L (0-55); ALBUMIN 4.7 GM/DL (3.2-4.5); ALKALINE PHOSPHATASE 106 U/L (40-136); BUN/CREATININE RATIO 7; CALCIUM 9.6 MG/DL (8.5-10.1); CARBON DIOXIDE 22 MMOL/L (21-32); CHLORIDE 102 MMOL/L (98-107); CREATININE SERUM 0.94 MG/DL (0.60-1.30); GFR ESTIMATED > 60; GLUCOSE 101 MG/DL (70-105); MAGNESIUM 2.3 MG/DL (1.8-2.4); POTASSIUM 3.6 MMOL/L (3.6-5.0); SODIUM 138 MMOL/L (135-145); TOTAL PROTEIN 7.7 GM/DL (6.4-8.2)
[2018-05-25 15:12] LABS: MYOGLOBIN SERUM 55.1 NG/ML (10.0-92.0)
--- NOTE | 2018-05-25 16:13 | ED Chest Pain ---
General Chief Complaint: Chest Pain Stated Complaint: CHEST PAIN Nursing Triage Note: PT PRESENTS TO ER WITH COMPLAINT OF CHEST PAIN. 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 Nursing Sepsis Screen: No Definite Risk Allergies and Home Medications Allergies Coded Allergies: acetaminophen (Verified Allergy, Unknown, 11/23/16) codeine (Verified Allergy, Unknown, 11/23/16) fluoxetine (Verified Allergy, Unknown, 11/23/16) morphine (Verified Allergy, Unknown, couldn't sleep for days, 11/23/16) tramadol (Verified Allergy, Unknown, 11/23/16) Home Medications Alprazolam 0.5 Mg Tablet, 0.5 MG PO BID PRN for ANXIETY, (Reported) Aripiprazole 10 Mg Tablet, 10 MG PO DAILY, (Reported) Atorvastatin Calcium 20 Mg Tablet, 20 MG PO DAILY, (Reported) Atorvastatin Calcium 20 Mg Tablet, 20 MG PO DAILY Prescribed by: Zia CHIN on 10/26/17 1433 Duloxetine HCl 30 Mg Capsule.dr, 30 MG PO DAILY, (Reported) Fluticasone Propionate 9.9 Ml Vichy.susp, 2 SPRAY NS DAILY, (Reported) Levetiracetam 500 Mg Tablet, 500 MG PO BID, (Reported) Omeprazole 20 Mg Capsule.dr, 20 MG PO BID, (Reported) Oxycodone HCl/Acetaminophen 1 Each Tablet, 1 EACH PO TID PRN for PAIN-MODERATE, (Reported) Past Guongbt-Cdcnxn-Pzdufj Hx Patient Social History Alcohol Use: Occasionally Uses Number of Drinks Today: AA Alcohol Beverage of Choice: Beer Recreational Drug Use: No Smoking Status: Current Everyday Smoker Type Used: Cigarettes Recent Foreign Travel: No Contact w/Someone Who Travel: No Recent Infectious Disease Expo: No Recent Hopitalizations: No Immunizations Up To Date Tetanus Booster (TDap): Unknown Date of Pneumonia Vaccine: Oct 27, 2015 Seasonal Allergies Seasonal Allergies: Yes Past Medical History Surgeries: Yes (BACK/NECK, LEFT KNEE RECONSTRUCTION, 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, LEFT CTR) Orthopedic, Tonsillectomy Respiratory: Yes (WEARS OXYGEN PRN) Asthma, Sleep Apnea, COPD, Emphysema Currently Using CPAP: No Currently Using BIPAP: No Cardiac: Yes Heart Attack, Hypertension, Palpitations Neurological: Yes (LAST SEIZURE 6 MONTHS AGO) Seizure Disorder, Stroke, Traumatic Brain Injury Reproductive Disorders: No Gastrointestinal: Yes Gastroesophageal Reflux, Ulcer Musculoskeletal: Yes Arthritis, Chronic Back Pain Endocrine: No HEENT: No Loss of Vision: Denies Hearing Impairment: Denies Cancer: No Psychosocial: Yes Anxiety, PTSD Integumentary: No Blood Disorders: No Adverse Reaction/Blood Tranf: No Family Medical History No Pertinent Family Hx Physical Exam Vital Signs Vital Signs - First Documented 05/25/18 14:28 Pulse 84 Resp 15 B/P (MAP) 123/79 (94) Pulse Ox 100 O2 Delivery Room Air Capillary Refill : Less Than 3 Seconds Height, Weight, BMI Height: 5'9.00" Weight: 180lbs. 0.0oz. 81.945914nu; 25.5 BMI Method:Stated Progress/Results/Core Measures Results/Orders Lab Results Laboratory Tests Test 05/25/18 14:35 Range/Units White Blood Count 8.4 4.3-11.0 10^3/uL Red Blood Count 5.45 4.35-5.85 10^6/uL Hemoglobin 16.2 13.3-17.7 G/DL Hematocrit 47 40-54 % Mean Corpuscular Volume 86 80-99 FL Mean Corpuscular Hemoglobin 30 25-34 PG Mean Corpuscular Hemoglobin Concent 35 32-36 G/DL Red Cell Distribution Width 14.3 10.0-14.5 % Platelet Count 296 130-400 10^3/uL Mean Platelet Volume 9.4 7.4-10.4 FL Neutrophils (%) (Auto) 55 42-75 % Lymphocytes (%) (Auto) 34 12-44 % Monocytes (%) (Auto) 10 0-12 % Eosinophils (%) (Auto) 1 0-10 % Basophils (%) (Auto) 0 0-10 % Neutrophils # (Auto) 4.6 1.8-7.8 X 10^3 Lymphocytes # (Auto) 2.9 1.0-4.0 X 10^3 Monocytes # (Auto) 0.9 0.0-1.0 X 10^3 Eosinophils # (Auto) 0.1 0.0-0.3 10^3/uL Basophils # (Auto) 0.0 0.0-0.1 10^3/uL Prothrombin Time 14.3 12.2-14.7 SEC INR Comment 1.1 0.8-1.4 Activated Partial Thromboplast Time 29 24-35 SEC D-Dimer 0.20 0.00-0.49 UG/ML Sodium Level 138 135-145 MMOL/L Potassium Level 3.6 3.6-5.0 MMOL/L Chloride Level 102 98-107 MMOL/L Carbon Dioxide Level 22 21-32 MMOL/L Anion Gap 14 5-14 MMOL/L Blood Urea Nitrogen 7 7-18 MG/DL Creatinine 0.94 0.60-1.30 MG/DL Estimat Glomerular Filtration Rate > 60 BUN/Creatinine Ratio 7 Glucose Level 101 70-105 MG/DL Calcium Level 9.6 8.5-10.1 MG/DL Corrected Calcium 8.5-10.1 MG/DL Magnesium Level 2.3 1.8-2.4 MG/DL Total Bilirubin 1.0 0.1-1.0 MG/DL Aspartate Amino Transf (AST/SGOT) 20 5-34 U/L Alanine Aminotransferase (ALT/SGPT) 32 0-55 U/L Alkaline Phosphatase 106 40-136 U/L Myoglobin 55.1 10.0-92.0 NG/ML Troponin I < 0.30 <0.30 NG/ML Total Protein 7.7 6.4-8.2 GM/DL Albumin 4.7 H 3.2-4.5 GM/DL My Orders Orders - COOKIE VENEGSA MD Cbc With Automated Diff (05/25/18 14:37) Magnesium (05/25/18 14:37) Chest 1 View, Ap/Pa Only (05/25/18 14:37) Ekg Tracing (05/25/18 14:37) Cardiac Profile 1 (05/25/18 14:37) Comprehensive Metabolic Panel (05/25/18 14:37) Myoglobin Serum (05/25/18 14:37) Protime With Inr (05/25/18 14:37) Partial Thromboplastin Time (05/25/18 14:37) O2 (05/25/18 14:37) Monitor-Rhythm Ecg Trace Only (05/25/18 14:37) Aspirin Chewable Tablet (Baby Aspirin Ch (05/25/18 14:45) Nitroglycerin 0.4 Mg Btl 25's (Nitrostat (05/25/18 14:45) Saline Lock/Iv-Start (05/25/18 14:37) Fibrin Degradation Products (10/26/18 14:40) Medications Given in ED Current Medications Medications Dose Ordered Sig/Nick Route Start Time Stop Time Status Last Admin Dose Admin Aspirin 243 mg ONCE ONCE PO 05/25/18 14:45 05/25/18 14:46 DC 05/25/18 14:45 243 MG Nitroglycerin 0.4 mg UD PRN SL 05/25/18 14:45 05/25/18 16:23 DC 05/25/18 14:44 0.4 MG Vital Signs/I&O 05/25/18 05/25/18 14:28 16:23 Pulse 84 90 Resp 15 31 B/P (MAP) 123/79 (94) 114/87 (96) Pulse Ox 100 96 O2 Delivery Room Air Room Air Blood Pressure Mean: 94 Progress Progress Note : Time: 16:10 Progress Note Patient's pain was immediately relieved after 2 doses of nitroglycerin. Workup was otherwise unremarkable. Case was discussed with Dr. Davidson. Consensus between the 2 of us was to offer a four-hour cardiac rule out with a repeat troponin. This was discussed with the patient. The patient opted to return home without the four-hour rule out. I did explain to him that I cannot completely rule out a cardiac cause of his pain without further evaluation. He acknowledged the fact that he may be leaving the hospital with a potentially dangerous condition. He commits to returning to the emergency room if pain returns. He will follow-up with Dr. Chin in the clinic. The frequent PVCs seen earlier in his stay resolved. Initial ECG Impression Date: May 25, 2018 Initial ECG Impression Time: 13:56 Initial ECG Rate: 61 Comment Atrial paced complexes with no ST elevation or depression. Incomplete right bundle branch block by automated read. Departure Impression Primary Impression: Chest pain Qualified Codes: R07.9 - Chest pain, unspecified Additional Impression: PVCs (premature ventricular contractions) Disposition: 01 HOME, SELF-CARE Condition: Improved Departure-Patient Inst. Decision time for Depature: 16:05 Referrals: YUMIKO MICHEL MD (PCP/Family) Primary Care Physician Patient Instructions: Chest Pain (DC) Add. Discharge Instructions: Return to the emergency room if you have recurrent chest pain. Follow-up with Dr. Chin and your primary care provider soon as possible. Take aspirin 81 mg daily. Work toward quitting smoking and alcohol consumption. All discharge instructions reviewed with patient and/or family. Voiced understanding. Copy Copies To 1: Zia CHIN MD, JOSHUA T MD May 25, 2018 16:13
[2018-05-25 16:23] VITALS: BP 114/87
--- OUTSIDE RECORDS SUMMARY | 2018-05-25 17:10 | XMS REPORT | Continuity of Care Document ---
Demographics x Preferred Language Unknown Marital Status Unknown Pentecostal Affiliation Unknown Race Unknown Ethnic Group Unknown Author Author [facility] Organization [facility] Address Unknown Phone Unavailable Allergies Active Description Code Type Severity Reaction Onset Reported/Identified Relationship to Patient Clinical Status Yes Codeine 1550 Drug Allergy N/A irritable, hypertension, jittery Yes Prozac 6733 Drug Allergy N/A irregular heart Yes Ultracet 37487 Drug Allergy N/ A Nausea~aggitated~neck and headache Yes codeine Drug Allergy N/A Adverse Reaction 09/22/2013 Yes Prozac Drug Allergy N/A Adverse Reaction 09/22/2013 Yes Ultracet Drug Allergy N/A Adverse Reaction 09/22/2013 Yes PSYCHIATRIC MED X2(UNKNOWN NAMES) PSYCHIATRIC MED X2( UNKNOWN NAMES) Unknown N/A 07/05/2015 Yes acetaminophen [id number] Drug Allergy Unknown N/A 11/23/2016 Yes codeine [id number] Drug Allergy Unknown N/A 11/23/2016 Yes fluoxetine [id number] Drug Allergy Unknown N/A 11/23/2016 Yes morphine [id number] Drug Allergy Unknown couldn't sleep 11/23/2016 Yes tramadol [id number] Drug Allergy Unknown N/A 11/23/2016 Medications There [...] HEADACHE 07/06/2015 MYRNA ZAPATA Ot 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 02/03/2016 BILL WATSON APRN [...] MD, Ot I25.10 ATHSCL HEART DISEASE OF [place] CORONARY 11/30/2016 ALY CORREA MD Ot I50.9 [...] 11/30/2016 ALY CORREA MD, Ot 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 11/30/2016 ALY CORREA MD, [...] I10 ESSENTIAL (PRIMARY) HYPERTENSION 12/01/2016 ALY CORREA MD, Ot I25.10 ATHSCL HEART DISEASE OF [place] CORONARY 12/01/2016 ALY CORREA MD Ot I50.9 [...] 12/01/2016 ALY CORREA MD, Ot 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 12/01/2016 ALY CORREA MD, [...] MD Ot I25.10 ATHSCL HEART DISEASE OF [place] CORONARY 12/01/2016 ALY CORERA MD Ot I50.9 HEART FAILURE, UNSPECIFIED 12/01/2016 [...] 12/01/2016 ALY CORREA MD Ot 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 12/01/2016 ALY CORREA MD [...] MD, Ot I25.10 ATHSCL HEART DISEASE OF [place] CORONARY 12/06/2016 ALY CORREA MD, Ot I50.9 [...] 12/06/2016 ALY CORREA MD, Ot 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 12/06/2016 ALY CORREA MD, [...] MD, Ot I25.10 ATHSCL HEART DISEASE OF [place] CORONARY 12/07/2016 ALY CORREA MD, Ot I50.9 [...] 12/07/2016 ALY CORREA MD, Ot 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 12/07/2016 ALY CORREA MD, [...] P Ot Y99.8 OTHER EXTERNAL CAUSE STATUS 10/18/2017 ROSAURA ABRAHAM MD Ot E78.00 PURE HYPERCHOLESTEROLEMIA, UNSPECIFIED 10/18/2017 ROSAURA ABRAHAM MD Ot F17.210 NICOTINE DEPENDENCE, CIGARETTES, UNCOMPL 10/18/2017 ROSAURA ABRAHAM MD Ot F41.9 ANXIETY DISORDER, UNSPECIFIED 10/18/2017 ROSAURA ABRAHAM MD Ot F43.10 POST-TRAUMATIC STRESS DISORDER, UNSPECIF 10/18/2017 ROSAURA ABRAHAM MD Ot G40.909 EPILEPSY, UNSP, NOT INTRACTABLE, WITHOUT 10/18/2017 ROSAURA ABRAHAM MD Ot I10 ESSENTIAL (PRIMARY) HYPERTENSION 10/18/2017 ROSAURA ABRAHAM MD Ot I25.10 ATHSCL HEART DISEASE OF [place] CORONARY 10/18/2017 ROSAURA ABRAHAM MD Ot I25.2 OLD MYOCARDIAL INFARCTION 10/18/2017 ROSAURA ABRAHAM MD Ot J44.1 CHRONIC OBSTRUCTIVE PULMONARY DISEASE W 10/18/2017 ROSAURA ABRAHAM MD Ot K21.9 GASTRO-ESOPHAGEAL REFLUX DISEASE WITHOUT 10/18/2017 ROSAURA ABRAHAM MD Ot R07.2 PRECORDIAL PAIN 10/18/2017 ROSAURA ABRAHAM MD Ot 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 10/18/2017 ROSAURA ABRAHAM MD Ot Z79.52 [facility] (CURRENT) USE OF SYSTEMIC STER 10/18/2017 ROSAURA ABRAHAM MD Ot Z86.73 PRSNL HX OF TIA (TIA), AND CEREB INFRC W 10/18/2017 ROSAURA ABRAHAM MD Ot Z87.820 PERSONAL HISTORY OF TRAUMATIC BRAIN INJU 10/18/2017 ROSAURA ABRAHAM MD Ot Z88.5 ALLERGY STATUS TO NARCOTIC AGENT STATUS 10/18/2017 ROSAURA ABRAHAM MD Ot Z88.6 ALLERGY STATUS TO ANALGESIC AGENT STATUS 10/18/2017 ROSAURA ABRAHAM MD Ot Z88.8 ALLERGY STATUS TO OTH DRUG/MEDS/BIOL SUB 10/18/2017 ROSAURA ABRAHAM MD Ot Z90.89 ACQUIRED ABSENCE OF OTHER ORGANS 10/20/2017 ROSAURA ABRAHAM MD Ot E78.00 PURE HYPERCHOLESTEROLEMIA, UNSPECIFIED 10/20/2017 ROSAURA ABRAHAM MD Ot F17.210 NICOTINE DEPENDENCE, CIGARETTES, UNCOMPL 10/20/2017 ROSAURA ABRAHAM MD Ot F41.9 ANXIETY DISORDER, UNSPECIFIED 10/20/2017 ROSAURA ABRAHAM MD Ot F43.10 POST-TRAUMATIC STRESS DISORDER, UNSPECIF 10/20/2017 ROSAURA ABRAHAM MD Ot G40.909 EPILEPSY, UNSP, NOT INTRACTABLE, WITHOUT 10/20/2017 ROSAURA ABRAHAM MD Ot I10 ESSENTIAL (PRIMARY) HYPERTENSION 10/20/2017 ROSAURA ABRAHAM MD Ot I25.10 ATHSCL HEART DISEASE OF [place] CORONARY 10/20/2017 ROSAURA ABRAHAM MD Ot I25.2 OLD MYOCARDIAL INFARCTION 10/20/2017 ROSAURA ABRAHAM MD Ot J44.1 CHRONIC OBSTRUCTIVE PULMONARY DISEASE W 10/20/2017 ROSAURA ABRAHAM MD Ot K21.9 GASTRO-ESOPHAGEAL REFLUX DISEASE WITHOUT 10/20/2017 ROSAURA ABRAHAM MD Ot R07.2 PRECORDIAL PAIN 10/20/2017 ROSAURA ABRAHAM MD Ot 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 10/20/2017 ROSAURA ABRAHAM MD Ot Z79.52 [facility] (CURRENT) USE OF SYSTEMIC STER 10/20/2017 ROSAURA ABRAHAM MD Ot Z86.73 PRSNL HX OF TIA (TIA), AND CEREB INFRC W 10/20/2017 ROSAURA ABRAHAM MD Ot Z87.820 PERSONAL HISTORY OF TRAUMATIC BRAIN INJU 10/20/2017 ROSAURA ABRAHAM MD Ot Z88.5 ALLERGY STATUS TO NARCOTIC AGENT STATUS 10/20/2017 ROSAURA ABRAHAM MD Ot Z88.6 ALLERGY STATUS TO ANALGESIC AGENT STATUS 10/20/2017 ROSAURA ABRAHAM MD Ot Z88.8 ALLERGY STATUS TO OTH DRUG/MEDS/BIOL SUB 10/20/2017 ROSAURA ABRAHAM MD Ot Z90.89 ACQUIRED ABSENCE OF OTHER ORGANS 10/24/2017 ROSAURA ABRAHAM MD Ot E78.00 PURE HYPERCHOLESTEROLEMIA, UNSPECIFIED 10/24/2017 ROSAURA ABRAHAM MD Ot F17.210 NICOTINE DEPENDENCE, CIGARETTES, UNCOMPL 10/24/2017 ROSAURA ABRAHAM MD Ot F41.9 ANXIETY DISORDER, UNSPECIFIED 10/24/2017 ROSAURA ABRAHAM MD Ot F43.10 POST-TRAUMATIC STRESS DISORDER, UNSPECIF 10/24/2017 ROSAURA ABRAHAM MD Ot G40.909 EPILEPSY, UNSP, NOT INTRACTABLE, WITHOUT 10/24/2017 ROSAURA ABRAHAM MD Ot I10 ESSENTIAL (PRIMARY) HYPERTENSION 10/24/2017 ROSAURA ABRAHAM MD Ot I25.10 ATHSCL HEART DISEASE OF [place] CORONARY 10/24/2017 ROSAURA ABRAHAM MD Ot I25.2 OLD MYOCARDIAL INFARCTION 10/24/2017 ROSAURA ABRAHAM MD Ot J44.1 CHRONIC OBSTRUCTIVE PULMONARY DISEASE W 10/24/2017 ROSAURA ABRAHAM MD Ot K21.9 GASTRO-ESOPHAGEAL REFLUX DISEASE WITHOUT 10/24/2017 ROSAURA ABRAHAM MD Ot R07.2 PRECORDIAL PAIN 10/24/2017 ROSAURA ABRAHAM MD, Ot 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 10/24/2017 ROSAURA ABRAHAM MD Ot 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 10/24/2017 ROSAURA ABRAHAM MD, Ot Z86.73 PRSNL HX OF TIA (TIA), AND CEREB INFRC W 10/24/2017 ROSAURA ABRAHAM MD Ot Z87.820 PERSONAL HISTORY OF TRAUMATIC BRAIN INJU 10/24/2017 ROSAURA ABRAHAM MD Ot Z88.5 ALLERGY STATUS TO NARCOTIC AGENT STATUS 10/24/2017 ROSAURA ABRAHAM MD Ot Z88.6 ALLERGY STATUS TO ANALGESIC AGENT STATUS 10/24/2017 ROSAURA ABRAHAM MD Ot Z88.8 ALLERGY STATUS TO OTH DRUG/MEDS/BIOL SUB 10/24/2017 ROSAURA ABRAHAM MD Ot Z90.89 ACQUIRED ABSENCE OF OTHER ORGANS 10/26/2017 Zia MONTOYA MD Ot E78.5 HYPERLIPIDEMIA, UNSPECIFIED 10/26/2017 Zia MONTOYA MD Ot F17.210 NICOTINE DEPENDENCE, CIGARETTES, UNCOMPL 10/26/2017 Zia MONTOYA MD Ot G40.909 EPILEPSY, UNSP, NOT INTRACTABLE, WITHOUT 10/26/2017 Zia MONTOYA MD Ot I10 ESSENTIAL (PRIMARY) HYPERTENSION 10/26/2017 KHALID MD, M JONELLE Ot I25.2 OLD MYOCARDIAL INFARCTION 10/26/2017 Zia MONTOYA MD Ot J45.909 UNSPECIFIED ASTHMA, UNCOMPLICATED 10/26/2017 Zia MONTOYA MD Ot R07.2 PRECORDIAL PAIN 10/26/2017 Zia MONTOYA MD Ot Z79.899 OTHER [facility] (CURRENT) DRUG THERAPY 10/26/2017 Zia MONTOYA MD Ot Z82.49 FAMILY HX OF ISCHEM HEART DIS AND OTH DI 10/26/2017 Zia MONTOYA MD Ot Z86.73 PRSNL HX OF TIA (TIA), AND CEREB INFRC W 10/26/2017 Zia MONTOYA MD Ot Z87.820 PERSONAL HISTORY OF TRAUMATIC BRAIN INJU 10/27/2017 Zia MONTOYA MD Ot E78.5 HYPERLIPIDEMIA, UNSPECIFIED 10/27/2017 Zia MONTOYA MD Ot F17.210 NICOTINE DEPENDENCE, CIGARETTES, UNCOMPL 10/27/2017 Zia MONTOYA MD Ot G40.909 EPILEPSY, UNSP, NOT INTRACTABLE, WITHOUT 10/27/2017 Zia MONTOYA MD Ot I10 ESSENTIAL (PRIMARY) HYPERTENSION 10/27/2017 Zia MONTOYA MD Ot I25.2 OLD MYOCARDIAL INFARCTION 10/27/2017 Zia MONTOYA MD Ot J45.909 UNSPECIFIED ASTHMA, UNCOMPLICATED 10/27/2017 Zia MONTOYA MD Ot R07.2 PRECORDIAL PAIN 10/27/2017 Zia MONTOYA MD Ot Z79.899 OTHER [facility] (CURRENT) DRUG THERAPY 10/27/2017 Zia MONTOYA MD Ot Z82.49 FAMILY HX OF ISCHEM HEART DIS AND OTH DI 10/27/2017 Zia MONTOYA MD Ot Z86.73 PRSNL HX OF TIA (TIA), AND CEREB INFRC W 10/27/2017 Zia MONTOYA MD Ot Z87.820 PERSONAL HISTORY OF TRAUMATIC BRAIN INJU 11/16/2017 SUNNY WEBSTER, ALY Prado Ot M19.011 PRIMARY OSTEOARTHRITIS, RIGHT SHOULDER 11/16/2017 ALY CORREA MD Ot S46.111A STRAIN OF MUSC/FASC/TEND LONG HD BICEP, 11/16/2017 ALY CORREA MD Ot X50.9XXA OTHER AND UNSPECIFIED OVREXRTN OR STRNOU 11/16/2017 ALY CORREA MD Ot Y99.8 OTHER EXTERNAL CAUSE STATUS 11/21/2017 Zia MONTOYA MD, Ot E78.5 HYPERLIPIDEMIA, UNSPECIFIED 11/21/2017 Zia MONTOYA MD Ot I10 ESSENTIAL (PRIMARY) HYPERTENSION 11/21/2017 JAN WEBSTER, Zia SAL Ot I20.0 UNSTABLE ANGINA 11/21/2017 Zia MONTOYA MD Ot Z72.0 TOBACCO USE 11/26/2017 Zia MONTOYA MD, Ot E78.5 HYPERLIPIDEMIA, UNSPECIFIED 11/26/2017 Zia MONTOYA MD Ot I10 ESSENTIAL (PRIMARY) HYPERTENSION 11/26/2017 JAN WEBSTER, Zia SAL Ot I20.0 UNSTABLE ANGINA 11/26/2017 Zia MONTOYA MD Ot Z72.0 TOBACCO USE 12/12/2017 JAN WEBSTER, Zai SAL Ot E78.5 HYPERLIPIDEMIA, UNSPECIFIED 12/12/2017 Zia MONTOYA MD Ot I10 ESSENTIAL (PRIMARY) HYPERTENSION 12/12/2017 Zia MONTOYA MD Ot I20.0 UNSTABLE ANGINA 12/12/2017 Zia MONTOYA MD Ot Z72.0 TOBACCO USE 12/19/2017 JAN WEBSTER, Zia SAL Ot E78.5 HYPERLIPIDEMIA, UNSPECIFIED 12/19/2017 Zia MONTOYA MD Ot I10 ESSENTIAL (PRIMARY) HYPERTENSION 12/19/2017 Zia MONTOYA MD Ot I20.0 UNSTABLE ANGINA 12/19/2017 Zia MONTOYA MD Ot Z72.0 TOBACCO USE Procedures Code Description Performed By Performed On 96.71 [facility] VENT-<96 HOURS Be Mckeon MD 09/22/2013 Results [...] 2674 ng/mL <50 medMATCH Oxymorphone CONSISTENT NRG LIPID PANEL - 10/17/17 12:55 CHOLESTEROL, TOTAL 207 mg/dL <200 HDL CHOLESTEROL 32 mg/dL >40 TRIGLYCERIDES 222 mg/dL <150 LDL-CHOLESTEROL 139 mg/dL (calc) NRG CHOL/HDLC RATIO 6.5 (calc) <5.0 NON HDL CHOLESTEROL 175 mg/dL (calc) <130 CMP - 10/17/17 12:55 GLUCOSE 96 mg/dL 65-99 UREA NITROGEN (BUN) 6 mg/dL 7-25 CREATININE 0.86 mg/dL 0.70-1.33 eGFR NON-AFR. SURINAMESE 100 mL/min/1.73m2 > OR=60 eGFR 116 mL/min/1.73m2 > OR=60 BUN/CREATININE RATIO 7 (calc) 6-22 SODIUM 138 mmol/L 135-146 POTASSIUM 4.3 mmol/L 3.5-5.3 CHLORIDE 104 mmol/L 98-110 CARBON DIOXIDE 26 mmol/L 20-31 CALCIUM 9.4 mg/dL 8.6-10.3 PROTEIN, TOTAL 6.9 g/dL 6.1-8.1 ALBUMIN 4.3 g/dL 3.6-5.1 GLOBULIN 2.6 g/dL (calc) 1.9-3.7 ALBUMIN/GLOBULIN RATIO 1.7 (calc) 1.0-2.5 BILIRUBIN, TOTAL 1.0 mg/dL 0.2-1.2 ALKALINE PHOSPHATASE 95 U/L 40-115 AST 25 U/L 10-35 ALT 30 U/L 9-46 CBC - 10/17/17 12:55 WHITE BLOOD CELL COUNT 8.1 Thousand/uL 3.8-10.8 RED BLOOD CELL COUNT 5.42 Million/uL 4.20-5.80 HEMOGLOBIN 16.2 g/dL 13.2-17.1 HEMATOCRIT 47.2 % 38.5-50.0 MCV 87.1 fL 80.0-100.0 MCH 29.9 pg 27.0-33.0 MCHC 34.3 g/dL 32.0-36.0 RDW 14.3 % 11.0-15.0 PLATELET COUNT 313 Thousand/uL 140-400 MPV 9.5 fL 7.5-12.5 ABSOLUTE NEUTROPHILS 4585 cells/uL 3870-8640 ABSOLUTE LYMPHOCYTES 2608 cells/uL 850-3900 ABSOLUTE MONOCYTES 753 cells/uL 200-950 ABSOLUTE EOSINOPHILS 113 cells/uL 15-500 ABSOLUTE BASOPHILS 41 cells/uL 0-200 NEUTROPHILS 56.6 % NRG LYMPHOCYTES 32.2 % NRG MONOCYTES 9.3 % NRG EOSINOPHILS 1.4 % NRG BASOPHILS 0.5 % NRG Complete blood count (CBC) with automated white blood cell (WBC) differential - 10/18/17 01:00 Blood leukocytes automated count (number/volume) 11.3 10*3/uL 4.3-11.0 Blood erythrocytes automated count (number/volume) 5.18 10*6/uL 4.35-5.85 Venous blood hemoglobin measurement (mass/volume) 15.6 g/dL 13.3-17.7 Blood hematocrit (volume fraction) 46 % 40-54 Automated erythrocyte mean corpuscular volume 88 [foz_us] 80-99 Automated erythrocyte mean corpuscular hemoglobin (mass per erythrocyte) 30 pg 25-34 Automated erythrocyte mean corpuscular hemoglobin concentration measurement ( mass/volume) 34 g/dL 32-36 Automated erythrocyte distribution width ratio 14.7 % 10.0-14.5 Automated blood platelet count (count/volume) 314 10*3/uL 130-400 Automated blood platelet mean volume measurement 9.7 [foz_us] 7.4-10.4 Automated blood neutrophils/100 leukocytes 60 % 42-75 Automated blood lymphocytes/100 leukocytes 30 % 12-44 Blood monocytes/100 leukocytes 9 % 0-12 Automated blood eosinophils/100 leukocytes 1 % 0-10 Automated blood basophils/100 leukocytes 0 % 0-10 Blood neutrophils automated count (number/volume) 6.8 10*3 1.8-7.8 Blood lymphocytes automated count (number/volume) 3.4 10*3 1.0-4.0 Blood monocytes automated count (number/volume) 1.0 10*3 0.0-1.0 Automated eosinophil count 0.2 10*3/uL 0.0-0.3 Automated blood basophil count (count/volume) 0.0 10*3/uL 0.0-0.1 PT panel in platelet poor plasma by coagulation assay - 10/18/17 01:00 Prothrombin time (PT) in platelet poor plasma by coagulation assay 13.8 s 12.2-14.7 INR in platelet poor plasma or blood by coagulation assay 1.1 0.8-1.4 Activated partial thromboplastin time (aPTT) in platelet poor plasma bycoagulation assay - 10/18/17 01:00 Activated partial thromboplastin time (aPTT) in platelet poor plasma bycoagulation assay 31 s 24-35 Comprehensive metabolic panel - 10/18/17 01:00 Serum or plasma sodium measurement (moles/volume) 139 mmol/L 135-145 Serum or plasma potassium measurement (moles/volume) 3.5 mmol/L 3.6-5.0 Serum or plasma chloride measurement (moles/volume) 107 mmol/L 98-107 Carbon dioxide 22 mmol/L 21-32 Serum or plasma anion gap determination (moles/volume) 10 mmol/L 5-14 Serum or plasma urea nitrogen measurement (mass/volume) 6 mg/dL 7-18 Serum or plasma creatinine measurement (mass/volume) 0.90 mg/dL 0.60-1.30 Serum or plasma urea nitrogen/creatinine mass ratio 7 NRG Serum or plasma creatinine measurement with calculation of estimated glomerular filtration rate > NRG Serum or plasma glucose measurement (mass/volume) 155 mg/dL 70-105 Serum or plasma calcium measurement (mass/volume) 8.7 mg/dL 8.5-10.1 Serum or plasma total bilirubin measurement (mass/volume) 0.5 mg/dL 0.1-1.0 Serum or plasma alkaline phosphatase measurement (enzymatic activity/volume) 99 U/L 40-136 Serum or plasma aspartate aminotransferase measurement (enzymatic activity/ volume) 26 U/L 5-34 Serum or plasma alanine aminotransferase measurement (enzymatic activity/volume ) 37 U/L 0-55 Serum or plasma protein measurement (mass/volume) 7.3 g/dL 6.4-8.2 Serum or plasma albumin measurement (mass/volume) 4.2 g/dL 3.2-4.5 Magnesium - 10/18/17 01:00 Magnesium 2.4 mg/dL 1.8-2.4 Serum or plasma troponin i.cardiac measurement (mass/volume) - 10/18/17 01:00 Serum or plasma troponin i.cardiac measurement (mass/volume) < ng/ mL <0.30 Myoglobin, serum - 10/18/17 01:00 Myoglobin, serum 33.5 ng/mL 10.0-92.0 Serum or plasma lithium measurement (moles/volume) - 10/18/17 01:00 BNP level 10.1 pg/mL <100.0 Automated blood complete blood count (hemogram) panel - 10/26/17 12:00 Blood leukocytes automated count (number/volume) 11.1 10*3/uL 4.3-11.0 Blood erythrocytes automated count (number/volume) 5.31 10*6/uL 4.35-5.85 Venous blood hemoglobin measurement (mass/volume) 16.0 g/dL 13.3-17.7 Blood hematocrit (volume fraction) 46 % 40-54 Automated erythrocyte mean corpuscular volume 86 [foz_us] 80-99 Automated erythrocyte mean corpuscular hemoglobin (mass per erythrocyte) 30 pg 25-34 Automated erythrocyte mean corpuscular hemoglobin concentration measurement ( mass/volume) 35 g/dL 32-36 Automated erythrocyte distribution width ratio 14.6 % 10.0-14.5 Automated blood platelet count (count/volume) 364 10*3/uL 130-400 Automated blood platelet mean volume measurement 9.2 [foz_us] 7.4-10.4 PT panel in platelet poor plasma by coagulation assay - 10/26/17 12:00 Prothrombin time (PT) in platelet poor plasma by coagulation assay 14.0 s 12.2-14.7 INR in platelet poor plasma or blood by coagulation assay 1.1 0.8-1.4 Activated partial thromboplastin time (aPTT) in platelet poor plasma bycoagulation assay - 10/26/17 12:00 Activated partial thromboplastin time (aPTT) in platelet poor plasma bycoagulation assay 29 s 24-35 Comprehensive metabolic panel - 10/26/17 12:00 Serum or plasma sodium measurement (moles/volume) 137 mmol/L 135-145 Serum or plasma potassium measurement (moles/volume) 4.1 mmol/L 3.6-5.0 Serum or plasma chloride measurement (moles/volume) 104 mmol/L 98-107 Carbon dioxide 28 mmol/L 21-32 Serum or plasma anion gap determination (moles/volume) 5 mmol/L 5-14 Serum or plasma urea nitrogen measurement (mass/volume) 9 mg/dL 7-18 Serum or plasma creatinine measurement (mass/volume) 0.80 mg/dL 0.60-1.30 Serum or plasma urea nitrogen/creatinine mass ratio 11 NRG Serum or plasma creatinine measurement with calculation of estimated glomerular filtration rate > NRG Serum or plasma glucose measurement (mass/volume) 101 mg/dL 70-105 Serum or plasma calcium measurement (mass/volume) 9.1 mg/dL 8.5-10.1 Serum or plasma total bilirubin measurement (mass/volume) 0.9 mg/dL 0.1-1.0 Serum or plasma alkaline phosphatase measurement (enzymatic activity/volume) 93 U/L 40-136 Serum or plasma aspartate aminotransferase measurement (enzymatic activity/ volume) 23 U/L 5-34 Serum or plasma alanine aminotransferase measurement (enzymatic activity/volume ) 45 U/L 0-55 Serum or plasma protein measurement (mass/volume) 7.2 g/dL 6.4-8.2 Serum or plasma albumin measurement (mass/volume) 4.3 g/dL 3.2-4.5 Lipid 1996 panel - 10/26/17 12:00 Serum or plasma triglyceride measurement (mass/volume) 226 mg/dL <150 Serum or plasma cholesterol measurement (mass/volume) 220 mg/dL < 200 Serum or plasma cholesterol in HDL measurement (mass/volume) 43 mg/ dL 40-60 Cholesterol in LDL [mass/volume] in serum or plasma by direct assay 137 mg/dL 1-129 Serum or plasma cholesterol in VLDL measurement (mass/volume) 45 mg/ dL 5-40 Methicillin resistant Staphylococcus aureus (MRSA) screening culture - 12:00 Methicillin resistant Staphylococcus aureus (MRSA) screening culture NEG NRG Complete blood count (CBC) with automated white blood cell (WBC) differential - 05/25/18 14:35 Blood leukocytes automated count (number/volume) 8.4 10*3/uL 4.3-11.0 Blood erythrocytes automated count (number/volume) 5.45 10*6/uL 4.35-5.85 Venous blood hemoglobin measurement (mass/volume) 16.2 g/dL 13.3-17.7 Blood hematocrit (volume fraction) 47 % 40-54 Automated erythrocyte mean corpuscular volume 86 [foz_us] 80-99 Automated erythrocyte mean corpuscular hemoglobin (mass per erythrocyte) 30 pg 25-34 Automated erythrocyte mean corpuscular hemoglobin concentration measurement ( mass/volume) 35 g/dL 32-36 Automated erythrocyte distribution width ratio 14.3 % 10.0-14.5 Automated blood platelet count (count/volume) 296 10*3/uL 130-400 Automated blood platelet mean volume measurement 9.4 [foz_us] 7.4-10.4 Automated blood neutrophils/100 leukocytes 55 % 42-75 Automated blood lymphocytes/100 leukocytes 34 % 12-44 Blood monocytes/100 leukocytes 10 % 0-12 Automated blood eosinophils/100 leukocytes 1 % 0-10 Automated blood basophils/100 leukocytes 0 % 0-10 Blood neutrophils automated count (number/volume) 4.6 10*3 1.8-7.8 Blood lymphocytes automated count (number/volume) 2.9 10*3 1.0-4.0 Blood monocytes automated count (number/volume) 0.9 10*3 0.0-1.0 Automated eosinophil count 0.1 10*3/uL 0.0-0.3 Automated blood basophil count (count/volume) 0.0 10*3/uL 0.0-0.1 Comprehensive metabolic panel - 05/25/18 14:35 Serum or plasma sodium measurement (moles/volume) 138 mmol/L 135-145 Serum or plasma potassium measurement (moles/volume) 3.6 mmol/L 3.6-5.0 Serum or plasma chloride measurement (moles/volume) 102 mmol/L 98-107 Carbon dioxide 22 mmol/L 21-32 Serum or plasma anion gap determination (moles/volume) 14 mmol/L 5-14 Serum or plasma urea nitrogen measurement (mass/volume) 7 mg/dL 7-18 Serum or plasma creatinine measurement (mass/volume) 0.94 mg/dL 0.60-1.30 Serum or plasma urea nitrogen/creatinine mass ratio 7 NRG Serum or plasma creatinine measurement with calculation of estimated glomerular filtration rate > NRG Serum or plasma glucose measurement (mass/volume) 101 mg/dL 70-105 Serum or plasma calcium measurement (mass/volume) 9.6 mg/dL 8.5-10.1 Serum or plasma total bilirubin measurement (mass/volume) 1.0 mg/dL 0.1-1.0 Serum or plasma alkaline phosphatase measurement (enzymatic activity/volume) 106 U/L 40-136 Serum or plasma aspartate aminotransferase measurement (enzymatic activity/ volume) 20 U/L 5-34 Serum or plasma alanine aminotransferase measurement (enzymatic activity/volume ) 32 U/L 0-55 Serum or plasma protein measurement (mass/volume) 7.7 g/dL 6.4-8.2 Serum or plasma albumin measurement (mass/volume) 4.7 g/dL 3.2-4.5 Magnesium - 05/25/18 14:35 Magnesium 2.3 mg/dL 1.8-2.4 PT panel in platelet poor plasma by coagulation assay - 05/25/18 14:35 Prothrombin time (PT) in platelet poor plasma by coagulation assay 14.3 s 12.2-14.7 INR in platelet poor plasma or blood by coagulation assay 1.1 0.8-1.4 Activated partial thromboplastin time (aPTT) in platelet poor plasma bycoagulation assay - 05/25/18 14:35 Activated partial thromboplastin time (aPTT) in platelet poor plasma bycoagulation assay 29 s 24-35 Fibrin D-dimer FEU measurement in platelet poor plasma (mass/volume) - 14:35 Fibrin D-dimer FEU measurement in platelet poor plasma (mass/volume) 0.20 ug/mL 0.00-0.49 Serum or plasma troponin i.cardiac measurement (mass/volume) - 05/25/18 14:35 Serum or plasma troponin i.cardiac measurement (mass/volume) < ng/ mL <0.30 Myoglobin, serum - 05/25/18 14:35 Myoglobin, serum 55.1 ng/mL 10.0-92.0 Encounters ACCT No. Visit Date/Time Discharge Status Pt. Type Provider Facility Loc./Unit Complaint [id number] 11/25/2014 10:09:00 11/25/2014 23:59:59 CLS Outpatient DIAMOND STRANGE [facility] [id number] 10/29/2014 00:01:00 11/09/2014 12:30:00 DIS Outpatient BENIGNO AVILA [facility] [id number] 09/28/2014 00:01:00 10/28/2014 23:59:00 DIS Outpatient AUSTINBENIGNO [facility] [id number] 07/31/2014 00:01:00 07/31/2014 23:59:59 CLS Outpatient BENIGNO AVILA [facility] [id number] 06/30/2014 00:01:00 07/30/2014 23:59:00 DIS Outpatient BENIGNO AVILA [facility] [id number] 05/31/2014 00:01:00 06/29/2014 23:59:00 DIS Outpatient BENIGNO AVILA [facility] [id number] 04/30/2014 00:01:00 05/30/2014 23:59:00 DIS Outpatient AUSTINBENIGNO [facility] [id number] 03/31/2014 00:01:00 04/29/2014 23:59:00 DIS Outpatient AUSTINBENIGNO [facility] [id number] 02/28/2014 00:01:00 03/30/2014 23:59:00 DIS Outpatient AUSTINBENIGNO [facility] [id number] 12/29/2013 00:01:00 12/29/2013 23:59:59 CLS Outpatient AUSTIN BENIGNO [facility] [id number] 11/28/2013 00:01:00 12/28/2013 23:59:00 DIS Outpatient BENIGNO AVILA [facility] DME [id number] 10/29/2013 00:01:00 11/27/2013 23:59:00 DIS Outpatient BENIGNO AVILA [facility] DME [id number] 10/29/2013 00:01:00 11/27/2013 23:59:00 DIS Outpatient SINDYDIAMOND AVILA [facility] OBS [id number] 10/23/2013 16:10:00 10/28/2013 23:59:00 DIS Outpatient SINDYDIAMOND AVILA [facility] OBS [id number] 09/28/2013 00:01:00 10/28/2013 23:59:00 DIS Outpatient EBNIGNO AVILA [facility] DME [id number] 10/19/2013 02:27:00 10/23/2013 12:00:00 DIS Inpatient GIOVANNYJAVAN [facility] 2F [id number] 10/19/2013 02:27:00 10/19/2013 02:27:00 DIS Emergency SINTIA MENG [facility] EMR [id number] 10/19/2013 00:10:00 10/19/2013 00:10:00 DIS Outpatient SINTIA MENG [facility] EMR [id number] 08/31/2013 00:01:00 09/27/2013 23:59:00 DIS Outpatient BENIGNO AVILA [facility] DME [id number] 09/22/2013 15:41:00 09/22/2013 16:30:00 DIS Emergency DIAMOND STRANGE [facility] EMR [id number] 10/19/2013 02:25:41 Document Registration [id number] 06/29/2013 00:00:00 Document Registration [id number] 06/29/2013 00:00:00 Document Registration [id number] 11/20/2017 14:01:00 11/20/2017 23:59:59 CLS Outpatient Zia MONTOYA MD [facility] CARD E78.5 HYPERLIPIDEMIA [id number] 10/26/2017 11:31:00 10/26/2017 17:20:00 DIS Outpatient Zia MONTOYA MD [facility] CATH UNSTABLE ANGINA [id number] 10/18/2017 00:47:00 10/18/2017 02:50:00 DIS Emergency ROSAURA ABRAHAM MD [facility] ER SOB,CP [id number] 03/31/2017 07:59:00 03/31/2017 23:59:59 CLS Outpatient ALY CORREA MD [facility] RAD RTC RIGHT M75.111 [id number] 03/21/2017 17:33:00 03/21/2017 19:03:00 DIS Emergency COOKIE VENEGAS MD [facility] ER RT SHOULDER PAIN [id number] 11/30/2016 06:00:00 11/30/2016 10:37:00 DIS Outpatient ALY CORREA MD [facility] SDC SUPERIOR GLENOID LABRUM LESION RIGHT SHOULDER [id number] 11/23/2016 09:09:00 11/23/2016 09:45:00 DIS Outpatient ALY CORREA MD [facility] PREOP SUPERIOR GLENOID LABUM LESION RT SHOULDER [id number] 09/16/2016 09:39:00 09/16/2016 23:59:59 CLS Outpatient MADIE ELLIOTT [facility] RAD TEAR OF RIGHT ROTATOR CUFF [id number] 02/03/2016 16:46:00 02/03/2016 19:14:00 DIS Emergency BILL WATSON APRN [facility] ER DIARRHEA [id number] 07/05/2015 20:54:00 07/06/2015 00:57:00 DIS Emergency MYRNA ZAPATA [facility] ER DIZZINESS,COUGHING [id number] 05/25/2018 14:46:00 Document Registration [id number] 05/19/2016 10:05:00 Document Registration [id number] 11/25/2014 10:10:43 ACT Document Registration [id number] 09/22/2013 17:38:00 09/24/2013 17:20:00 DIS Inpatient Be Mckeon MD [facility] on [address] [id number] 10/07/2016 07:06:00 Document Registration [id number] 02/05/2018 11:20:00 02/05/2018 23:59:59 [facility] Outpatient MARILU WEBSTER, YUMIKO [facility] [id number] 10/17/2017 12:40:00 Document Registration [id number] 10/10/2017 11:00:00 Document Registration
== END 2018-05-25 16:23 | disposition home or self-care (01) ==
LOC: EDUNIT# 14:26 → ER 14:27
DX: I49.3 Ventricular premature depolarization (principal); R07.9 Chest pain, unspecified; G47.30 Sleep apnea, unspecified; J43.9 Emphysema, unspecified; I25.2 Old myocardial infarction; I10 Essential (primary) hypertension; G40.909 Epilepsy, unspecified, not intractable, without status epilepticus; K21.9 Gastro-esophageal reflux disease without esophagitis; F41.9 Anxiety disorder, unspecified; F43.10 Post-traumatic stress disorder, unspecified; F17.210 Nicotine dependence, cigarettes, uncomplicated; Z87.828 Personal history of other (healed) physical injury and trauma; Z87.19 Personal history of other diseases of the digestive system; Z90.89 Acquired absence of other organs; Z96.652 Presence of left artificial knee joint; Z88.5 Allergy status to narcotic agent; Z88.8 Allergy status to other drugs, medicaments and biological substances; Z88.6 Allergy status to analgesic agent; Z79.51 Long term (current) use of inhaled steroids
CPT/HCPCS: 36415; 71045; 80053; 83735; 83874; 84484; 85025; 85379; 85610; 85730; 93005; 93041

== ENCOUNTER 2018-05-25 22:56 | Observation (INO) | payer MEDICARE, MEDICAID ==
[~2018-05-25] VITALS: Ht 175.3 cm; Wt 82.2 kg
[2018-05-25] MEDS ORDERED: ASPIRIN 81 MG CHEW (CHILDREN'S ASA) PO ONE (23:30)
--- NOTE | 2018-05-25 23:35 | ED Chest Pain ---
General Chief Complaint: Cardiac/General Problems Stated Complaint: CP/DIARRHEA Nursing Triage Note: palpatations, left reporoducable chest wall pain x30min Nursing Sepsis Screen: No Definite Risk Source: patient History of Present Illness Date Seen by Provider: May 25, 2018 Time Seen by Provider: 23:15 Initial Comments PT ARRIVES VIA POV FROM HOME C/O MID CHEST PAIN SINCE 2244 TONIGHT--BEGAN WHILE SITTING UP IN BED WATCHING TV RATES PAIN 6/10 NO RADIATION OF PAIN NOTHING WORSENS OR IMPROVES PAIN C/O SLIGHT SHORTNESS OF BREATH--HAS COPD, IS ON HOME O2 AT 2L/NC CONTINUOUSLY, BUT DID NOT BRING HOME O2 WITH HIM TO ER. PT CONTINUES TO SMOKE STATES "MY HEART'S JUMPIN' BEATS BECAUSE I'VE SENIOR CHECKING MY PULSE AND I COULD FEEL IT JUMPIN' AROUND AND I COULD FEEL IT IN MY CHEST" PT WAS SEEN HERE IN ER THIS AFTERNOON FOR SAME--STATES HE HAS PVC'S WHEN HE LEFT HERE, HE WENT TO THE [place] AND THEN WENT HOME PT STATES HE HAD A HEART ATTACK IN 2003, BUT NO INTERVENTION DOES NOT HAVE NTG --STATES IT HAS NEVER BEEN PRESCRIBED HAD CARDIAC CATH EARLIER THIS YEAR BY DR. MONTOYA--NO INTERVENTION. PCP: DR. MARILU BLOCK AUTO BODY MAN: DR MONTOYA Allergies and Home Medications Allergies Coded Allergies: acetaminophen (Verified Allergy, Unknown, 11/23/16) codeine (Verified Allergy, Unknown, 11/23/16) fluoxetine (Verified Allergy, Unknown, 11/23/16) morphine (Verified Allergy, Unknown, couldn't sleep for days, 11/23/16) tramadol (Verified Allergy, Unknown, 11/23/16) Home Medications Alprazolam 0.5 Mg Tablet, 0.5 MG PO BID PRN for ANXIETY, (Reported) Aripiprazole 10 Mg Tablet, 10 MG PO DAILY, (Reported) Atorvastatin Calcium 20 Mg Tablet, 20 MG PO DAILY, (Reported) Duloxetine HCl 30 Mg Capsule.dr, 30 MG PO DAILY, (Reported) Fluticasone Propionate 9.9 Ml [place].susp, 2 SPRAY NS DAILY, (Reported) Levetiracetam 500 Mg Tablet, 500 MG PO BID, (Reported) Omeprazole 20 Mg Capsule.dr, 20 MG PO BID, (Reported) Oxycodone HCl/Acetaminophen 1 Each Tablet, 1 EACH PO TID PRN for PAIN-MODERATE, (Reported) Patient Home Medication List Home Medication List Reviewed: Yes Review of Systems Review of Systems Constitutional: no symptoms reported; No diaphoresis, No dizziness Respiratory: See HPI; Denies Cough; Shortness of Air Cardiovascular: See HPI, Chest Pain; Denies Edema; Irregular Heart Rate; Denies Lightheadedness; Palpitations; Denies Syncope Gastrointestinal: No Symptoms Reported; Denies Abdominal Pain, Denies Nausea, Denies Vomiting Genitourinary: No Symptoms Reported Musculoskeletal: no symptoms reported Skin: no symptoms reported Psychiatric/Neurological: No Symptoms Reported Endocrine: No Symptoms Reported Hematologic/Lymphatic: No Symptoms Reported Past Ndeckjr-Dhyhxo-Eassjf Hx Patient Social History Alcohol Use: Occasionally Uses Number of Drinks Today: AA Alcohol Beverage of Choice: Beer Recreational Drug Use: Yes (COCAINE, HEROIN, METH--DENIES IV USE AND CLAIMS HE STOPPED 23 YEARS AGO, PER PT ON 05/25/18) Drug of Choice: COCAINE,HEROIN,THC--NO IV USE & DENIES IV USE X 23 YEARS,PER PT ON 05/25/18 Smoking Status: Current Everyday Smoker (2 1/2 PPD) Type Used: Cigarettes 2nd Hand Smoke Exposure: Yes Recent Foreign Travel: No Contact w/Someone Who Travel: No Recent Infectious Disease Expo: No Recent Hopitalizations: No Immunizations Up To Date Tetanus Booster (TDap): Unknown Date of Pneumonia Vaccine: Oct 27, 2015 Seasonal Allergies Seasonal Allergies: Yes Past Medical History Surgeries: Yes ( LEFT KNEE RECONSTRUCTION, 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/LYMPH NODE REMOVED, LEFT CTR; RIGHT SHOULDER SURGERY; CARDIAC CATH--NO INTEVENTION) Cardiac, Orthopedic, Tonsillectomy Respiratory: Yes (WEARS OXYGEN 2L/NC ) Asthma, Sleep Apnea, COPD, Emphysema Currently Using CPAP: No Currently Using BIPAP: No Cardiac: Yes Coronary Artery Disease, Heart Attack, High Cholesterol, Hypertension, Palpitations Neurological: Yes Concussion, Seizure Disorder, Stroke, Traumatic Brain Injury Reproductive Disorders: No Genitourinary: No Gastrointestinal: Yes Gastroesophageal Reflux, Ulcer Musculoskeletal: Yes (CHRONIC NECK AND BACK PAIN ) Arthritis, Chronic Back Pain Endocrine: No HEENT: No Loss of Vision: Denies Hearing Impairment: Denies Cancer: No Psychosocial: Yes Anxiety, PTSD Integumentary: No Blood Disorders: No Adverse Reaction/Blood Tranf: No Family Medical History No Pertinent Family Hx Physical Exam Vital Signs Vital Signs - First Documented 05/25/18 05/25/18 23:00 23:30 Temp 97.7 Pulse 80 Resp 18 B/P (MAP) 121/79 (93) Pulse Ox 97 O2 Delivery Room Air O2 Flow Rate 3.00 Capillary Refill : Less Than 3 Seconds Height, Weight, BMI Height: 5'9.00" Weight: 180lbs. 0.0oz. 81.526046fa; 25.5 BMI Method:Stated General Appearance: No Apparent Distress, WD/WN, Other (UNKMEPT, REEKS OF CIGARETTES, DOES NOT APPEAR TO BE IN ANY DISCOMFORT OR DISTRESS) HEENT: PERRL/EOMI Neck: Full Range of Motion, Normal Inspection, Non Tender, Supple; No Carotid Bruit, No JVD Respiratory: Chest Non Tender, Normal Breath Sounds, No Accessory Muscle Use, No Respiratory Distress Cardiovascular: Regular Rate, Rhythm, No Edema, No JVD, No Murmur, Normal Peripheral Pulses Gastrointestinal: Normal Bowel Sounds, No Organomegaly, No Pulsatile Mass, Non Tender, Soft Extremity: Normal Capillary Refill, Normal Inspection, Normal Range of Motion, Non Tender, No Calf Tenderness, No Pedal Edema Neurologic/Psychiatric: Alert, Oriented x3, No Motor/Sensory Deficits, Normal Mood/Affect, fuel 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 attendant II-XII Norm as Tested Skin: Normal Color, Warm/Dry Progress/Results/Core Measures Results/Orders Lab Results Laboratory Tests Test 05/25/18 23:40 Range/Units White Blood Count 9.5 4.3-11.0 10^3/uL Red Blood Count 5.12 4.35-5.85 10^6/uL Hemoglobin 15.2 13.3-17.7 G/DL Hematocrit 45 40-54 % Mean Corpuscular Volume 88 80-99 FL Mean Corpuscular Hemoglobin 30 25-34 PG Mean Corpuscular Hemoglobin Concent 34 32-36 G/DL Red Cell Distribution Width 14.3 10.0-14.5 % Platelet Count 265 130-400 10^3/uL Mean Platelet Volume 9.5 7.4-10.4 FL Neutrophils (%) (Auto) 45 42-75 % Lymphocytes (%) (Auto) 41 12-44 % Monocytes (%) (Auto) 12 0-12 % Eosinophils (%) (Auto) 2 0-10 % Basophils (%) (Auto) 0 0-10 % Neutrophils # (Auto) 4.3 1.8-7.8 X 10^3 Lymphocytes # (Auto) 3.8 1.0-4.0 X 10^3 Monocytes # (Auto) 1.1 H 0.0-1.0 X 10^3 Eosinophils # (Auto) 0.2 0.0-0.3 10^3/uL Basophils # (Auto) 0.0 0.0-0.1 10^3/uL Prothrombin Time 14.2 12.2-14.7 SEC INR Comment 1.1 0.8-1.4 Activated Partial Thromboplast Time 28 24-35 SEC Sodium Level 140 135-145 MMOL/L Potassium Level 3.7 3.6-5.0 MMOL/L Chloride Level 105 98-107 MMOL/L Carbon Dioxide Level 23 21-32 MMOL/L Anion Gap 12 5-14 MMOL/L Blood Urea Nitrogen 9 7-18 MG/DL Creatinine 1.23 0.60-1.30 MG/DL Estimat Glomerular Filtration Rate > 60 BUN/Creatinine Ratio 7 Glucose Level 85 70-105 MG/DL Calcium Level 9.1 8.5-10.1 MG/DL Corrected Calcium 8.9 8.5-10.1 MG/DL Magnesium Level 2.6 H 1.8-2.4 MG/DL Total Bilirubin 0.6 0.1-1.0 MG/DL Aspartate Amino Transf (AST/SGOT) 19 5-34 U/L Alanine Aminotransferase (ALT/SGPT) 30 0-55 U/L Alkaline Phosphatase 96 40-136 U/L Total Creatine Kinase 183 30-200 U/L Creatine Kinase MB 1.1 <6.6 NG/ML Myoglobin 37.0 10.0-92.0 NG/ML Troponin I < 0.30 <0.30 NG/ML B-Type Natriuretic Peptide < 10.0 <100.0 PG/ML Total Protein 6.8 6.4-8.2 GM/DL Albumin 4.2 3.2-4.5 GM/DL Amylase Level 32 25-125 U/L Lipase 44 8-78 U/L Serum Alcohol < 10 <10 MG/DL My Orders Orders - TIFFANIE CURRY DO Cbc With Automated Diff (05/25/18 23:16) Magnesium (05/25/18 23:16) Ekg Tracing (05/25/18 23:16) Cardiac Profile 1 (05/25/18 23:16) Comprehensive Metabolic Panel (05/25/18 23:16) Myoglobin Serum (05/25/18 23:16) Protime With Inr (05/25/18 23:16) Partial Thromboplastin Time (05/25/18 23:16) O2 (05/25/18 23:16) Monitor-Rhythm Ecg Trace Only (05/25/18 23:16) Lipid Panel (05/26/18 06:00) Aspirin Chewable Tablet (Baby Aspirin Ch (05/25/18 23:30) Nitroglycerin 0.4 Mg Btl 25's (Nitrostat (05/25/18 23:30) Saline Lock/Iv-Start (05/25/18 23:16) Creatine Kinase (05/25/18 23:16) Creatine Kinase Mb (05/25/18 23:16) Lipase (05/25/18 23:16) Amylase (05/25/18 23:16) BNP (05/25/18 23:16) Alcohol (05/25/18 23:43) Ketorolac Injection (Toradol Injection) (05/26/18 00:00) Medications Given in ED Current Medications Medications Dose Ordered Sig/Nick Route Start Time Stop Time Status Last Admin Dose Admin Aspirin 324 mg ONCE ONCE PO 05/25/18 23:30 05/25/18 23:31 DC 05/25/18 23:41 324 MG Ketorolac Tromethamine 30 mg ONCE ONCE IVP 05/26/18 00:00 05/26/18 00:48 DC 05/25/18 23:54 30 MG Vital Signs/I&O 05/25/18 05/25/18 23:00 23:30 Temp 97.7 Pulse 80 Resp 18 B/P (MAP) 121/79 (93) Pulse Ox 97 O2 Delivery Room Air Nasal Cannula O2 Flow Rate 3.00 Blood Pressure Mean: 93 Progress Progress Note : Progress Note NTG HELD DUE TO SYSTOLIC BP 102 GIVEN TORADOL AND IS PAIN-FREE UNEVENTFUL ER STAY. Initial ECG Impression Date: May 26, 2018 Initial ECG Impression Time: 00:17 Initial ECG Rate: 65 Initial ECG Rhythm: Normal Sinus Departure Communication (Admissions) 0042--DISCUSSED WITH DR. BARROSO, [employer] FOR [facility], ACCEPTS PT FOR ADMIT. WILL CONSULT CARDIOLOGY IN AM Impression Primary Impression: Chest pain Additional Impressions: COPD (chronic obstructive pulmonary disease) Smoker Disposition: ADMITTED INPATIENT Condition: Improved Admissions Decision to Admit Reason: Admit from ER (General) Decision to Admit/Date: May 26, 2018 Time/Decision to Admit Time: 00:45 Departure-Patient Inst. Referrals: YUMIKO MICHEL MD (PCP/Family) Primary Care Physician TIFFANIE CURRY DO May 25, 2018 23:35
[2018-05-25] MEDS: NITROGLYCERIN 0.4 MG SL TABS BTL 25'S SL PRN ×2 (23:41→23:44)
[2018-05-25 23:47] LABS: BASOPHILS % (AUTO) 0 % (0-10); EOSINOPHILS # (AUTO) 0.2 10^3/uL (0.0-0.3); EOSINOPHILS % (AUTO) 2 % (0-10); HEMATOCRIT 45 % (40-54); HEMOGLOBIN 15.2 G/DL (13.3-17.7); LYMPHOCYTES # (AUTO) 3.8 X 10^3 (1.0-4.0); LYMPHOCYTES % (AUTO) 41 % (12-44); MEAN CORPUSCULAR HEMOGLOBIN 30 PG (25-34); MEAN CORPUSCULAR HGB CONC 34 G/DL (32-36); MEAN CORPUSCULAR VOLUME 88 FL (80-99); MEAN PLATELET VOLUME 9.5 FL (7.4-10.4); MONOCYTES # (AUTO) 1.1 X 10^3 (0.0-1.0); MONOCYTES % (AUTO) 12 % (0-12); NEUTROPHILS # (AUTO) 4.3 X 10^3 (1.8-7.8); NEUTROPHILS % (AUTO) 45 % (42-75); PLATELET COUNT 265 10^3/uL (130-400); RED BLOOD COUNT 5.12 10^6/uL (4.35-5.85); RED CELL DISTRIBUTION WIDTH 14.3 % (10.0-14.5); WHITE BLOOD COUNT 9.5 10^3/uL (4.3-11.0)
[2018-05-25] MEDS ORDERED: KETOROLAC 30 MG/ML VIAL ONE (23:52)
[2018-05-25 23:57] LABS: INR 1.1 (0.8-1.4); PROTHROMBIN TIME PATIENT 14.2 SEC (12.2-14.7)
[2018-05-26] VITALS (11 sets, daily range): BP systolic 116–137; BP diastolic 70–83
[2018-05-26] MEDS ORDERED: KETOROLAC 30 MG/ML VIAL IVP ONE
[2018-05-26 00:13] LABS: ALANINE AMINOTRANSFERASE 30 U/L (0-55); ALBUMIN 4.2 GM/DL (3.2-4.5); ALKALINE PHOSPHATASE 96 U/L (40-136); AMYLASE 32 U/L (25-125); BILIRUBIN,TOTAL 0.6 MG/DL (0.1-1.0); BUN/CREATININE RATIO 7; CALCIUM 9.1 MG/DL (8.5-10.1); CARBON DIOXIDE 23 MMOL/L (21-32); CHLORIDE 105 MMOL/L (98-107); CREATINE KINASE 183 U/L (30-200); CREATININE SERUM 1.23 MG/DL (0.60-1.30); GFR ESTIMATED > 60; GLUCOSE 85 MG/DL (70-105); LIPASE 44 U/L (8-78); MAGNESIUM 2.6 MG/DL (1.8-2.4); POTASSIUM 3.7 MMOL/L (3.6-5.0); SODIUM 140 MMOL/L (135-145); TOTAL PROTEIN 6.8 GM/DL (6.4-8.2)
[2018-05-26 00:21] LABS: CREATINE KINASE MB 1.1 NG/ML (<6.6)
--- OUTSIDE RECORDS SUMMARY | 2018-05-26 01:28 | XMS REPORT | Continuity of Care Document ---
Demographics x Preferred Language Unknown Marital Status Unknown Hoahaoism Affiliation Unknown Race Unknown Ethnic Group Unknown Author Author [facility] Organization [facility] Address Unknown Phone Unavailable Allergies Active Description Code Type Severity Reaction Onset Reported/Identified Relationship to Patient Clinical Status Yes Codeine 1550 Drug Allergy N/A irritable, hypertension, jittery Yes Prozac 6733 Drug Allergy N/A irregular heart Yes Ultracet 15591 Drug Allergy N/ A Nausea~aggitated~neck and headache Yes codeine Drug Allergy N/A Adverse Reaction 09/22/2013 Yes Prozac Drug Allergy N/A Adverse Reaction 09/22/2013 Yes Ultracet Drug Allergy N/A Adverse Reaction 09/22/2013 Yes PSYCHIATRIC MED X2(UNKNOWN NAMES) PSYCHIATRIC MED X2( UNKNOWN NAMES) Unknown N/A 07/05/2015 Yes acetaminophen [id number] Drug Allergy Unknown N/A 11/23/2016 Yes codeine [id number] Drug Allergy Unknown N/A 11/23/2016 Yes fluoxetine [id number] Drug Allergy Unknown N/A 11/23/2016 Yes morphine [id number] Drug Allergy Unknown couldn't sleep 11/23/2016 Yes tramadol [id number] Drug Allergy Unknown N/A 11/23/2016 Medications There [...] HEADACHE 07/06/2015 MYRNA ZAPATA Ot Z79.899 OTHER MEDICAL ASSISTING INSTRUCTOR (CURRENT) DRUG THERAPY 02/03/2016 BILL WATSON APRN [...] MD, Ot I25.10 ATHSCL HEART DISEASE OF [place] CORONARY 11/30/2016 ALY CORREA MD Ot I50.9 [...] 11/30/2016 ALY CORREA MD, Ot Z79.899 OTHER MEDICAL ASSISTING INSTRUCTOR (CURRENT) DRUG THERAPY 11/30/2016 ALY CORREA MD, [...] MD, Ot I25.10 ATHSCL HEART DISEASE OF [place] CORONARY 12/01/2016 ALY CORREA MD Ot I50.9 [...] 12/01/2016 ALY CORREA MD, Ot Z79.899 OTHER MEDICAL ASSISTING INSTRUCTOR (CURRENT) DRUG THERAPY 12/01/2016 ALY CORREA MD, [...] MD Ot I25.10 ATHSCL HEART DISEASE OF [place] CORONARY 12/01/2016 ALY CORREA MD Ot I50.9 [...] 12/01/2016 ALY CORREA MD Ot Z79.899 OTHER MEDICAL ASSISTING INSTRUCTOR (CURRENT) DRUG THERAPY 12/01/2016 ALY CORREA MD [...] MD, Ot I25.10 ATHSCL HEART DISEASE OF [place] CORONARY 12/06/2016 ALY CORREA MD, Ot I50.9 [...] 12/06/2016 ALY CORREA MD, Ot Z79.899 OTHER MEDICAL ASSISTING INSTRUCTOR (CURRENT) DRUG THERAPY 12/06/2016 ALY CORREA MD, [...] MD, Ot I25.10 ATHSCL HEART DISEASE OF [place] CORONARY 12/07/2016 ALY CORREA MD, Ot I50.9 [...] 12/07/2016 ALY CORREA MD, Ot Z79.899 OTHER MEDICAL ASSISTING INSTRUCTOR (CURRENT) DRUG THERAPY 12/07/2016 ALY CORREA MD, [...] MD Ot I25.10 ATHSCL HEART DISEASE OF [place] CORONARY 10/18/2017 ROSAURA ABRAHAM MD Ot I25.2 OLD MYOCARDIAL INFARCTION 10/18/2017 ROSAURA ABRAHAM MD Ot J44.1 CHRONIC OBSTRUCTIVE PULMONARY DISEASE W 10/18/2017 ROSAURA ABRAHAM MD Ot K21.9 GASTRO-ESOPHAGEAL REFLUX DISEASE WITHOUT 10/18/2017 ROSAURA ABRAHAM MD Ot R07.2 PRECORDIAL PAIN 10/18/2017 ROSAURA ABRAHAM MD Ot Z79.51 MEDICAL ASSISTING INSTRUCTOR (CURRENT) USE OF INHALED STERO 10/18/2017 ROSAURA ABRAHAM MD Ot Z79.52 JAIL (CURRENT) USE OF SYSTEMIC STER 10/18/2017 ROSAURA [...] MD Ot I25.10 ATHSCL HEART DISEASE OF [place] CORONARY 10/20/2017 ROSAURA ABRAHAM MD Ot I25.2 OLD MYOCARDIAL INFARCTION 10/20/2017 ROSAURA ABRAHAM MD Ot J44.1 CHRONIC OBSTRUCTIVE PULMONARY DISEASE W 10/20/2017 ROSAURA ABRAHAM MD Ot K21.9 GASTRO-ESOPHAGEAL REFLUX DISEASE WITHOUT 10/20/2017 ROSAURA ABRAHAM MD Ot R07.2 PRECORDIAL PAIN 10/20/2017 ROSAURA ABRAHAM MD Ot Z79.51 MEDICAL ASSISTING INSTRUCTOR (CURRENT) USE OF INHALED STERO 10/20/2017 ROSAURA ABRAHAM MD Ot Z79.52 JAIL (CURRENT) USE OF SYSTEMIC STER 10/20/2017 ROSAURA [...] MD Ot I25.10 ATHSCL HEART DISEASE OF [place] CORONARY 10/24/2017 ROSAURA ABRAHAM MD Ot I25.2 OLD MYOCARDIAL INFARCTION 10/24/2017 ROSAURA ABRAHAM MD Ot J44.1 CHRONIC OBSTRUCTIVE PULMONARY DISEASE W 10/24/2017 ROSAURA ABRAHAM MD Ot K21.9 GASTRO-ESOPHAGEAL REFLUX DISEASE WITHOUT 10/24/2017 ROSAURA ABRAHAM MD Ot R07.2 PRECORDIAL PAIN 10/24/2017 ROSAURA ABRAHAM MD, Ot Z79.51 MEDICAL ASSISTING INSTRUCTOR (CURRENT) USE OF INHALED STERO 10/24/2017 ROSAURA ABRAHAM MD Ot Z79.52 MEDICAL ASSISTING INSTRUCTOR (CURRENT) USE OF SYSTEMIC STER 10/24/2017 ROSAURA [...] 10/26/2017 Zia MONTOYA MD Ot Z79.899 OTHER JAIL (CURRENT) DRUG THERAPY 10/26/2017 Zia MONTOYA MD [...] 10/27/2017 Zia MONTOYA MD Ot Z79.899 OTHER JAIL (CURRENT) DRUG THERAPY 10/27/2017 Zia MONTOYA MD [...] Ot Z72.0 TOBACCO USE 12/12/2017 JAN WEBSTER, Zia SAL Ot E78.5 HYPERLIPIDEMIA, UNSPECIFIED 12/12/2017 Zia [...] Description Performed By Performed On 96.71 [facility] VENT-<96 HOURS Be Mckeon MD 09/22/2013 Results [...] 7-25 CREATININE 0.86 mg/dL 0.70-1.33 eGFR NON-AFR. GUAMANIAN 100 mL/min/1.73m2 > OR=60 eGFR 116 mL/min/1.73m2 [...] 9.5 fL 7.5-12.5 ABSOLUTE NEUTROPHILS 4585 cells/uL 5622-9314 ABSOLUTE LYMPHOCYTES 2608 cells/uL 850-3900 ABSOLUTE MONOCYTES [...] 05/25/18 14:35 Myoglobin, serum 55.1 ng/mL 10.0-92.0 Complete blood count (CBC) with automated white blood cell (WBC) differential - 05/25/18 23:40 Blood leukocytes automated count (number/volume) 9.5 10*3/uL 4.3-11.0 Blood erythrocytes automated count (number/volume) 5.12 10*6/uL 4.35-5.85 Venous blood hemoglobin measurement (mass/volume) 15.2 g/dL 13.3-17.7 Blood hematocrit (volume fraction) 45 % 40-54 Automated erythrocyte mean corpuscular volume 88 [foz_us] 80-99 Automated erythrocyte mean corpuscular hemoglobin (mass per erythrocyte) 30 pg 25-34 Automated erythrocyte mean corpuscular hemoglobin concentration measurement ( mass/volume) 34 g/dL 32-36 Automated erythrocyte distribution width ratio 14.3 % 10.0-14.5 Automated blood platelet count (count/volume) 265 10*3/uL 130-400 Automated blood platelet mean volume measurement 9.5 [foz_us] 7.4-10.4 Automated blood neutrophils/100 leukocytes 45 % 42-75 Automated blood lymphocytes/100 leukocytes 41 % 12-44 Blood monocytes/100 leukocytes 12 % 0-12 Automated blood eosinophils/100 leukocytes 2 % 0-10 Automated blood basophils/100 leukocytes 0 % 0-10 Blood neutrophils automated count (number/volume) 4.3 10*3 1.8-7.8 Blood lymphocytes automated count (number/volume) 3.8 10*3 1.0-4.0 Blood monocytes automated count (number/volume) 1.1 10*3 0.0-1.0 Automated eosinophil count 0.2 10*3/uL 0.0-0.3 Automated blood basophil count (count/volume) 0.0 10*3/uL 0.0-0.1 PT panel in platelet poor plasma by coagulation assay - 05/25/18 23:40 Prothrombin time (PT) in platelet poor plasma by coagulation assay 14.2 s 12.2-14.7 INR in platelet poor plasma or blood by coagulation assay 1.1 0.8-1.4 Activated partial thromboplastin time (aPTT) in platelet poor plasma bycoagulation assay - 05/25/18 23:40 Activated partial thromboplastin time (aPTT) in platelet poor plasma bycoagulation assay 28 s 24-35 Serum or plasma ethanol measurement (mass/volume) - 05/25/18 23:40 Serum or plasma ethanol measurement (mass/volume) < mg/dL <10 Encounters ACCT No. Visit Date/Time Discharge Status Pt. Type Provider Facility Loc./Unit Complaint [id number] 11/25/2014 10:09:00 11/25/2014 23:59:59 CLS Outpatient ALIE DIAMOND Jose Daniel [facility] [id number] 10/29/2014 00:01:00 11/09/2014 12:30:00 DIS Outpatient AUSTINBENIGNO [facility] [id number] 09/28/2014 00:01:00 10/28/2014 23:59:00 DIS Outpatient AUSTINBENIGNO Alen [facility] [id number] 07/31/2014 00:01:00 07/31/2014 23:59:59 CLS Outpatient AUSTINBENIGNO [facility] [id number] 06/30/2014 00:01:00 07/30/2014 23:59:00 DIS Outpatient AUSTINBENIGNO Alen [facility] [id number] 05/31/2014 00:01:00 06/29/2014 23:59:00 DIS Outpatient AUSTINBENIGNO Alen [facility] [id number] 04/30/2014 00:01:00 05/30/2014 23:59:00 DIS Outpatient AUSTINBENIGNO [facility] [id number] 03/31/2014 00:01:00 04/29/2014 23:59:00 DIS Outpatient BENIGNO AIVLA [facility] [id number] 02/28/2014 00:01:00 03/30/2014 23:59:00 DIS Outpatient BENIGNO AVILA [facility] [id number] 12/29/2013 00:01:00 12/29/2013 23:59:59 CLS Outpatient BENIGNO AVILA [facility] DME [id number] 11/28/2013 00:01:00 12/28/2013 23:59:00 DIS Outpatient BENIGNO AVILA [facility] DME [id number] 10/29/2013 00:01:00 11/27/2013 23:59:00 DIS Outpatient BENIGNO AVILA [facility] DME [id number] 10/29/2013 00:01:00 11/27/2013 23:59:00 DIS Outpatient DIAMOND STRANGE [facility] OBS [id number] 10/23/2013 16:10:00 10/28/2013 23:59:00 DIS Outpatient ALIE DIAMOND Jose Daniel [facility] OBS [id number] 09/28/2013 00:01:00 10/28/2013 23:59:00 DIS Outpatient BENIGNO AVILA [facility] DME [id number] 10/19/2013 02:27:00 10/23/2013 12:00:00 DIS Inpatient MADRIJAVAN Griffiths [facility] [id number] 10/19/2013 02:27:00 10/19/2013 02:27:00 DIS Emergency SINTIA MENG [facility] EMR [id number] 10/19/2013 00:10:00 10/19/2013 00:10:00 DIS Outpatient SINTIA MENG [facility] EMR [id number] 08/31/2013 00:01:00 09/27/2013 23:59:00 DIS Outpatient BENIGNO AVILA [facility] DME [id number] 09/22/2013 15:41:00 09/22/2013 16:30:00 DIS Emergency DIAMOND STRANGE [facility] EMR [id number] 10/19/2013 02:25:41 Document Registration [id number] 06/29/2013 00:00:00 Document Registration [id number] 06/29/2013 00:00:00 Document Registration [id number] 11/20/2017 14:01:00 11/20/2017 23:59:59 CLS Outpatient Zia MONTOYA MD [facility] CARD E78.5 HYPERLIPIDEMIA [id number] 10/26/2017 11:31:00 10/26/2017 17:20:00 DIS Outpatient Zia MONTOYA MD [facility] CATH UNSTABLE ANGINA [id number] 10/18/2017 00:47:00 10/18/2017 02:50:00 DIS Emergency ROSAURA ABRAHAM MD [facility] ER SOB,CP [id number] 03/31/2017 07:59:00 03/31/2017 23:59:59 CLS Outpatient ALY CORREA MD [facility] RAD RTC RIGHT M75.111 [id number] 03/21/2017 17:33:00 03/21/2017 19:03:00 DIS Emergency COOKIE VENEGAS MD [facility] ER RT SHOULDER PAIN [id number] 11/30/2016 06:00:00 11/30/2016 10:37:00 DIS Outpatient ALY CORREA MD [facility] SDC SUPERIOR GLENOID LABRUM LESION RIGHT SHOULDER [id number] 11/23/2016 09:09:00 11/23/2016 09:45:00 DIS Outpatient ALY CORREA MD [facility] PREOP SUPERIOR GLENOID LABUM LESION RT SHOULDER [id number] 09/16/2016 09:39:00 09/16/2016 23:59:59 CLS Outpatient MADIE ELLIOTT [facility] RAD TEAR OF RIGHT ROTATOR CUFF [id number] 02/03/2016 16:46:00 02/03/2016 19:14:00 DIS Emergency BILL WATSON APRN [facility] ER DIARRHEA [id number] 07/05/2015 20:54:00 07/06/2015 00:57:00 DIS Emergency MYRNA ZAPATA [facility] ER DIZZINESS,COUGHING [id number] 05/25/2018 23:49:00 Document Registration [id number] 05/25/2018 14:46:00 Document Registration [id number] 05/19/2016 10:05:00 Document Registration [id number] 11/25/2014 10:10:43 ACT Document Registration [id number] 09/22/2013 17:38:00 09/24/2013 17:20:00 DIS Inpatient Linda WEBSTER, Be Barr [facility] on [address] [id number] 10/07/2016 07:06:00 Document Registration [id number] 02/05/2018 11:20:00 02/05/2018 23:59:59 [facility] Outpatient MARILU WEBSTER, [facility]UMIKO [facility] [id number] 10/17/2017 12:40:00 Document Registration [id number] 10/10/2017 11:00:00 Document Registration
[2018-05-26] MEDS ORDERED: fentaNYL INJECTION 100 MCG/2 ML AMP IV PRN (02:00)
[2018-05-26] MEDS ORDERED: KETOROLAC 30 MG/ML VIAL IV PRN (02:00)
[2018-05-26] MEDS ORDERED: NITROGLYCERIN 0.4 MG SL TABS BTL 25'S SL PRN (02:15)
[2018-05-26] MEDS ORDERED: CATHETER FLUSH 10 ML SYR IV PRN (02:15)
--- NOTE | 2018-05-26 05:54 | History & Physicial (CHS) ---
HPI History of Present Illness: 63-year-old male presents to [facility] emergency department during the evening of May 25, 2018 with chest pain. Patient had presented earlier in the afternoon to hospital with chest pain and ultimately was sent home to follow up at [facility]. Patient does report chest pain that worsened without radiation at 2245 on the day of presentation. Apparently patient was setting up in bed at the time. Patient is a cigarette smoker and has a history of cardiac disease, stating that he has had a heart attack in 2003. In addition he has noticed palpitations off and on throughout the day. He does utilize home oxygen by nasal cannula since he does have COPD. Source: patient Exam Limitations: clinical condition Date seen by provider: May 26, 2018 Time Seen by Provider: 06:30 Attending Physician Silvino Barroso MD PCP Trevor Trejo MD Consult Date of Admission May 26, 2018 at 00:45 Home Medications Home Medications Reviewed patient Home Medication Reconciliation performed by pharmacy medication reconciliations administrative technician and/or nursing. Patients Allergies have been reviewed. Allergies Coded Allergies: acetaminophen (Verified Allergy, Unknown, 11/23/16) codeine (Verified Allergy, Unknown, 11/23/16) fluoxetine (Verified Allergy, Unknown, 11/23/16) morphine (Verified Allergy, Unknown, couldn't sleep for days, 11/23/16) tramadol (Verified Allergy, Unknown, 11/23/16) [id number] Hx Patient Social History Alcohol Use: Occasionally Uses Recreational Drug Use: No Drug of Choice: COCAINE,HEROIN,THC--NO IV USE & DENIES IV USE X 23 YEARS,PER PT ON 05/25/18 Smoking Status: Current Everyday Smoker Type Used: Cigarettes 2nd Hand Smoke Exposure: Yes Recent Foreign Travel: No Contact w/other who traveled: No Recent Hopitalizations: No Recent Infectious Disease Expo: No Physical Abuse Screen: No Sexual Abuse: No Immunizations Up To Date Tetanus Booster (TDap): Unknown Date of Pneumonia Vaccine: Oct 27, 2015 Family Medical History Significant Family History: No Pertinent Family Hx Family History: FH: lung cancer 19 MOTHER Myocardial infarction 19 FATHER Review of Systems (CHC) Constitutional: see HPI Reviewed Test Results Reviewed Test Results Lab Laboratory Tests Test 05/25/18 23:40 Range/Units White Blood Count 9.5 4.3-11.0 10^3/uL Red Blood Count 5.12 4.35-5.85 10^6/uL Hemoglobin 15.2 13.3-17.7 G/DL Hematocrit 45 40-54 % Mean Corpuscular Volume 88 80-99 FL Mean Corpuscular Hemoglobin 30 25-34 PG Mean Corpuscular Hemoglobin Concent 34 32-36 G/DL Red Cell Distribution Width 14.3 10.0-14.5 % Platelet Count 265 130-400 10^3/uL Mean Platelet Volume 9.5 7.4-10.4 FL Neutrophils (%) (Auto) 45 42-75 % Lymphocytes (%) (Auto) 41 12-44 % Monocytes (%) (Auto) 12 0-12 % Eosinophils (%) (Auto) 2 0-10 % Basophils (%) (Auto) 0 0-10 % Neutrophils # (Auto) 4.3 1.8-7.8 X 10^3 Lymphocytes # (Auto) 3.8 1.0-4.0 X 10^3 Monocytes # (Auto) 1.1 H 0.0-1.0 X 10^3 Eosinophils # (Auto) 0.2 0.0-0.3 10^3/uL Basophils # (Auto) 0.0 0.0-0.1 10^3/uL Prothrombin Time 14.2 12.2-14.7 SEC INR Comment 1.1 0.8-1.4 Activated Partial Thromboplast Time 28 24-35 SEC Sodium Level 140 135-145 MMOL/L Potassium Level 3.7 3.6-5.0 MMOL/L Chloride Level 105 98-107 MMOL/L Carbon Dioxide Level 23 21-32 MMOL/L Anion Gap 12 5-14 MMOL/L Blood Urea Nitrogen 9 7-18 MG/DL Creatinine 1.23 0.60-1.30 MG/DL Estimat Glomerular Filtration Rate > 60 BUN/Creatinine Ratio 7 Glucose Level 85 70-105 MG/DL Calcium Level 9.1 8.5-10.1 MG/DL Corrected Calcium 8.9 8.5-10.1 MG/DL Magnesium Level 2.6 H 1.8-2.4 MG/DL Total Bilirubin 0.6 0.1-1.0 MG/DL Aspartate Amino Transf (AST/SGOT) 19 5-34 U/L Alanine Aminotransferase (ALT/SGPT) 30 0-55 U/L Alkaline Phosphatase 96 40-136 U/L Total Creatine Kinase 183 30-200 U/L Creatine Kinase MB 1.1 <6.6 NG/ML Myoglobin 37.0 10.0-92.0 NG/ML Troponin I < 0.30 <0.30 NG/ML B-Type Natriuretic Peptide < 10.0 <100.0 PG/ML Total Protein 6.8 6.4-8.2 GM/DL Albumin 4.2 3.2-4.5 GM/DL Amylase Level 32 25-125 U/L Lipase 44 8-78 U/L Serum Alcohol < 10 <10 MG/DL Physical Exam-(CHC) Physical Exam Vital Signs VS - Last 72 Hours, by Label 05/25/18 05/25/18 05/26/18 05/26/18 23:00 23:30 01:28 01:45 Temp 97.7 98.0 Pulse 80 73 Resp 18 18 B/P (MAP) 121/79 (93) 103/63 (76) Pulse Ox 97 99 O2 Delivery Room Air Nasal Cannula Nasal Cannula Nasal Cannula O2 Flow Rate 3.00 2.00 2.00 05/26/18 05/26/18 05/26/18 05/26/18 01:45 02:15 02:30 02:45 Temp 99.3 Pulse 59 65 69 65 Resp 20 B/P (MAP) 119/75 (90) 122/77 (92) 116/70 (85) 124/80 (95) Pulse Ox 97 O2 Delivery Nasal Cannula O2 Flow Rate 2.00 05/26/18 05/26/18 05/26/18 05/26/18 03:00 03:15 03:20 05:15 Pulse 69 66 64 68 B/P (MAP) 125/83 (97) 118/77 (91) 119/75 (90) 05/26/18 06:15 Pulse 75 Resp 20 B/P (MAP) 120/83 (95) Pulse Ox 95 Capillary Refill : Less Than 3 Seconds General Appearance: no apparent distress Eyes: Bilateral Eye Normal Inspection HEENT: pharynx normal Neck: supple Respiratory: lungs clear Cardiovascular: regular rate, rhythm, no murmur Gastrointestinal: non tender, soft, other Rectal: deferred Extremities: non-tender, no pedal edema Neurologic/Psychiatric: alert, oriented x 3 Skin: normal color Assessment/Plan Assessment/Plan Admission Dx 1. Chest pain 2. COPD 3. History of coronary disease 4. Tobaccoism Admission Status: Observation Reason for Inpatient Admission: Further evaluation of chest pain Assessment & Plan 1. Chest pain -Patient to be admitted for observation -Cardiology consultation in the a.m. 2. COPD -Continue with his home pulmonary medications -Oxygen by nasal cannula 3. History of coronary disease 4. Tobaccoism Clinical Quality Measures DVT/VTE Risk/Contraindication: Risk Factor Score Per Nursin RFS Level Per Nursing on Admit: 2=Moderate SILVINO BARROSO MD May 26, 2018 05:54
[2018-05-26] MEDS ORDERED: CATHETER FLUSH 10 ML SYR IV SCH (06:00)
[2018-05-26 06:53] LABS: BASOPHILS % (AUTO) 0 % (0-10); EOSINOPHILS # (AUTO) 0.2 10^3/uL (0.0-0.3); EOSINOPHILS % (AUTO) 2 % (0-10); HEMATOCRIT 47 % (40-54); HEMOGLOBIN 15.5 G/DL (13.3-17.7); LYMPHOCYTES # (AUTO) 3.7 X 10^3 (1.0-4.0); LYMPHOCYTES % (AUTO) 44 % (12-44); MEAN CORPUSCULAR HEMOGLOBIN 29 PG (25-34); MEAN CORPUSCULAR HGB CONC 33 G/DL (32-36); MEAN CORPUSCULAR VOLUME 88 FL (80-99); MEAN PLATELET VOLUME 10.2 FL (7.4-10.4); MONOCYTES # (AUTO) 0.9 X 10^3 (0.0-1.0); MONOCYTES % (AUTO) 10 % (0-12); NEUTROPHILS # (AUTO) 3.8 X 10^3 (1.8-7.8); NEUTROPHILS % (AUTO) 44 % (42-75); PLATELET COUNT 259 10^3/uL (130-400); RED BLOOD COUNT 5.28 10^6/uL (4.35-5.85); RED CELL DISTRIBUTION WIDTH 14.5 % (10.0-14.5); WHITE BLOOD COUNT 8.5 10^3/uL (4.3-11.0)
[2018-05-26 06:58] LABS: INR 1.1 (0.8-1.4)
[2018-05-26 07:07] LABS: ALANINE AMINOTRANSFERASE 31 U/L (0-55); ALBUMIN 4.1 GM/DL (3.2-4.5); ALKALINE PHOSPHATASE 98 U/L (40-136); BILIRUBIN,TOTAL 0.7 MG/DL (0.1-1.0); BUN/CREATININE RATIO 11; CALCIUM 9.1 MG/DL (8.5-10.1); CARBON DIOXIDE 24 MMOL/L (21-32); CHLORIDE 104 MMOL/L (98-107); CHOLESTEROL 179 MG/DL (< 200); CREATININE SERUM 1.04 MG/DL (0.60-1.30); GFR ESTIMATED > 60; GLUCOSE 99 MG/DL (70-105); HDL CHOLESTEROL 30 MG/DL (40-60); POTASSIUM 3.8 MMOL/L (3.6-5.0); SODIUM 139 MMOL/L (135-145); TOTAL PROTEIN 6.9 GM/DL (6.4-8.2); TRIGLYCERIDES 192 MG/DL (<150); VLDL CHOLESTEROL 38 MG/DL (5-40)
[2018-05-26 07:15] LABS: MYOGLOBIN SERUM 35.9 NG/ML (10.0-92.0)
[2018-05-26] MEDS ORDERED: FLU QUADRIvalent (5+ YOA) 2018-2019 (AFLURIA) 0.5 ML IM ONE (07:30)
[2018-05-26] MEDS ORDERED: ASPIRIN E.C. 81 MG (ECOTRIN) TAB PO SCH (09:00)
--- NOTE | 2018-05-26 09:07 | Diagnostic Imaging Report ---
Indication: Chest pain. Comparison: 05/25/2018. Discussion: Single portable upright view of the chest was obtained. Stable normal heart size. No focal consolidation, pleural fluid, or pneumothorax. No osseous abnormality. Impression: 1. Negative portable chest. Dictated by: Dictated on workstation # [id number]
--- NOTE | 2018-05-26 11:58 | Consultation-Cardiology ---
HPI-Cardiology Cardiology Consultation Date of Consultation 05/26/18 Date of Admission Time Seen by Provider: 11:53 Indication: chest pain, palpitation HPI 53 years old gentleman with history of palpitation, hypertension and tobaccoism. Had a cardiac catheterization done in September 2017 showing normal coronaries. Reporting that he had a history of heart attack in the remote past does not remember having any stents or any intervention. Was in his usual state of health until yesterday evening when he started having chest pain, came to the emergency room and given sublingual nitroglycerin and felt better then was discharged home return in the evening with chest pain and palpitation that responded to Toradol since then he has been feeling well. No further episodes were reported. Asking to go home. Home Medications & Allergies Allergies: Coded Allergies: acetaminophen (Verified Allergy, Unknown, 11/23/16) codeine (Verified Allergy, Unknown, 11/23/16) fluoxetine (Verified Allergy, Unknown, 11/23/16) morphine (Verified Allergy, Unknown, couldn't sleep for days, 11/23/16) tramadol (Verified Allergy, Unknown, 11/23/16) Home Medication List Reviewed: Yes OFP-[id number] Hx Patient Social History Alcohol Use: Occasionally Uses Recreational Drug Use: No Drug of Choice: COCAINE,HEROIN,THC--NO IV USE & DENIES IV USE X 23 YEARS,PER PT ON 05/25/18 Smoking Status: Current Everyday Smoker Type Used: Cigarettes 2nd Hand Smoke Exposure: Yes Recent Foreign Travel: No Recent Infectious Disease Expo: No Recent Hopitalizations: No Physical Abuse Screen: No Sexual Abuse: No Immunizations Up To Date Tetanus Booster (TDap): Unknown Date of Pneumonia Vaccine: Oct 27, 2015 Past Medical History past medical history as described below Family Medical History Significant Family History: No Pertinent Family Hx Family History: FH: lung cancer 19 MOTHER Myocardial infarction 19 FATHER Review of Systems Constitutional: no symptoms reported, see HPI EENTM: see HPI, no symptoms reported Respiratory: see HPI; No cough, No dyspnea on exertion, No hemoptysis, No orthopnea, No phlegm, No short of breath, No stridor, No wheezing, No other Cardiovascular: see HPI, chest pain; No edema, No Hx of Intervention; palpitations; No syncope, No vascular heart diseas, No other Gastrointestinal: no symptoms reported, see HPI Genitourinary: no symptoms reported, see HPI Musculoskeletal: no symptoms reported, see HPI Skin: no symptoms reported, see HPI Psychiatric/Neurological: No Symptoms Reported, See HPI Reviewed Test Results Reviewed Test Results Lab Laboratory Tests Test 05/25/18 23:40 05/26/18 05:50 Range/Units White Blood Count 9.5 8.5 4.3-11.0 10^3/uL Red Blood Count 5.12 5.28 4.35-5.85 10^6/uL Hemoglobin 15.2 15.5 13.3-17.7 G/DL Hematocrit 45 47 40-54 % Mean Corpuscular Volume 88 88 80-99 FL Mean Corpuscular Hemoglobin 30 29 25-34 PG Mean Corpuscular Hemoglobin Concent 34 33 32-36 G/DL Red Cell Distribution Width 14.3 14.5 10.0-14.5 % Platelet Count 265 259 130-400 10^3/uL Mean Platelet Volume 9.5 10.2 7.4-10.4 FL Neutrophils (%) (Auto) 45 44 42-75 % Lymphocytes (%) (Auto) 41 44 12-44 % Monocytes (%) (Auto) 12 10 0-12 % Eosinophils (%) (Auto) 2 2 0-10 % Basophils (%) (Auto) 0 0 0-10 % Neutrophils # (Auto) 4.3 3.8 1.8-7.8 X 10^3 Lymphocytes # (Auto) 3.8 3.7 1.0-4.0 X 10^3 Monocytes # (Auto) 1.1 H 0.9 0.0-1.0 X 10^3 Eosinophils # (Auto) 0.2 0.2 0.0-0.3 10^3/uL Basophils # (Auto) 0.0 0.0 0.0-0.1 10^3/uL Prothrombin Time 14.2 14.0 12.2-14.7 SEC INR Comment 1.1 1.1 0.8-1.4 Activated Partial Thromboplast Time 28 31 24-35 SEC Sodium Level 140 139 135-145 MMOL/L Potassium Level 3.7 3.8 3.6-5.0 MMOL/L Chloride Level 105 104 98-107 MMOL/L Carbon Dioxide Level 23 24 21-32 MMOL/L Anion Gap 12 11 5-14 MMOL/L Blood Urea Nitrogen 9 11 7-18 MG/DL Creatinine 1.23 1.04 0.60-1.30 MG/DL Estimat Glomerular Filtration Rate > 60 > 60 BUN/Creatinine Ratio 7 11 Glucose Level 85 99 70-105 MG/DL Calcium Level 9.1 9.1 8.5-10.1 MG/DL Corrected Calcium 8.9 9.0 8.5-10.1 MG/DL Magnesium Level 2.6 H 1.8-2.4 MG/DL Total Bilirubin 0.6 0.7 0.1-1.0 MG/DL Aspartate Amino Transf (AST/SGOT) 19 19 5-34 U/L Alanine Aminotransferase (ALT/SGPT) 30 31 0-55 U/L Alkaline Phosphatase 96 98 40-136 U/L Total Creatine Kinase 183 30-200 U/L Creatine Kinase MB 1.1 <6.6 NG/ML Myoglobin 37.0 35.9 10.0-92.0 NG/ML Troponin I < 0.30 < 0.30 <0.30 NG/ML B-Type Natriuretic Peptide < 10.0 <100.0 PG/ML Total Protein 6.8 6.9 6.4-8.2 GM/DL Albumin 4.2 4.1 3.2-4.5 GM/DL Amylase Level 32 25-125 U/L Lipase 44 8-78 U/L Serum Alcohol < 10 <10 MG/DL Triglycerides Level 192 H <150 MG/DL Cholesterol Level 179 < 200 MG/DL LDL Cholesterol Direct 120 1-129 MG/DL VLDL Cholesterol 38 5-40 MG/DL HDL Cholesterol 30 L 40-60 MG/DL Physical Exam Vital Signs Vital Signs - First Documented 05/25/18 05/25/18 23:00 23:30 Temp 97.7 Pulse 80 Resp 18 B/P (MAP) 121/79 (93) Pulse Ox 97 O2 Delivery Room Air O2 Flow Rate 3.00 Capillary Refill : Less Than 3 Seconds Height, Weight, BMI Height: 5'9.00" Weight: 181lbs. 3.0oz. [id number]; 26.8 BMI Method:Stated General Appearance: No Apparent Distress, WD/WN Eyes: Bilateral Eye Normal Inspection, Bilateral Eye PERRL, Bilateral Eye EOMI HEENT: PERRL/EOMI, TMs Normal, Normal ENT Inspection, Pharynx Normal Neck: Full Range of Motion, Normal Inspection, Non Tender, Supple, Carotid Bruit Respiratory: Chest Non Tender, Lungs Clear, Normal Breath Sounds, No Accessory Muscle Use, No Respiratory Distress Cardiovascular: Regular Rate, Rhythm, No Edema, No Gallop, No JVD, No Murmur, Normal Peripheral Pulses Gastrointestinal: Normal Bowel Sounds, No Organomegaly, No Pulsatile Mass, Non Tender, Soft Back: Normal Inspection, No CVA Tenderness, No Vertebral Tenderness Extremity: Normal Capillary Refill, Normal Inspection, Normal Range of Motion, Non Tender, No Calf Tenderness, No Pedal Edema Neurologic/Psychiatric: Alert, Oriented x3, No Motor/Sensory Deficits, Normal Mood/Affect Skin: Normal Color, Warm/Dry Lymphatic: No Adenopathy A/P-Cardiology Admission Diagnosis chest pain nonspecific etiology Palpitation Hypertension Tobaccoism Assessment/Plan Chest pain nonspecific etiology atypical in presentation, history of noncardiac chest pain, had a cardiac catheterization done in September 2017 showing normal coronaries. Reassured at this time. No further testing is needed Palpitation, history of frequent PVCs. Maintained on Toprol-XL 25 mg as an outpatient. Continue current medication and follow-up as an outpatient Hypertension, controlled. Anxiety. Tobaccoism Okay for discharge from cardiology standpoint, instructed to follow-up with Dr. Chin as an outpatien Clinical Quality Measures DVT/VTE Risk/Contraindication: Risk Factor Score Per Nursin RFS Level Per Nursing on Admit: 2=Moderate DERRICK GLASS MD May 26, 2018 11:58
--- NOTE | 2018-05-29 10:39 | Physician Query-Final Dx ---
Final Diagnosis Give Final Diagnosis Please give Final Diagnosis CARLEEN LEHMAN May 29, 2018 10:39
== END 2018-05-26 13:57 | disposition home or self-care (01) ==
LOC: EDUNIT# 22:56 → ER 22:57 → 4TH 22:58 → UNDOADMOB 05-26 00:45 → UNDODISOB 05-26 14:20
PROVIDERS: ADMIT Family Medicine; ATTEND Family Medicine
DX: R07.89 Other chest pain (principal); R00.2 Palpitations; I49.3 Ventricular premature depolarization; I10 Essential (primary) hypertension; F41.9 Anxiety disorder, unspecified; F17.210 Nicotine dependence, cigarettes, uncomplicated; I25.2 Old myocardial infarction; J43.9 Emphysema, unspecified; E78.00 Pure hypercholesterolemia, unspecified; G47.30 Sleep apnea, unspecified; J45.909 Unspecified asthma, uncomplicated; G40.909 Epilepsy, unspecified, not intractable, without status epilepticus; Z86.73 Personal history of transient ischemic attack (TIA), and cerebral infarction without residual deficits; K21.9 Gastro-esophageal reflux disease without esophagitis; Z79.899 Other long term (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
CPT/HCPCS: 36415; 71045; 80053; 80061; 80320; 82150; 82550; 82553; 83690; 83735; 83874; 83880; 84484; 85025; 85610; 85730; 93005; 93041; 96374; G0378

== ENCOUNTER → 2018-07-16 | Outpatient (CLI) | payer MEDICARE, MEDICAID | LOC: CARD 08:19 | PROVIDERS: ATTEND Internal Medicine Interventional Cardiology | DX: I49.3 Ventricular premature depolarization (principal) | CPT/HCPCS: 93225; 93226 ==

== ENCOUNTER 2018-11-29 14:30 | Outpatient (CLI) | payer MEDICARE, MEDICAID ==
[~2018-11-29] VITALS: Ht 175.3 cm; Wt 84.4 kg
[2018-11-29] MEDS ORDERED: METO-387 PO (14:41)
[2018-11-29] MEDS ORDERED: GABA-488 PO (14:41)
== END 2018-11-29 14:43 | disposition home or self-care (01) ==
LOC: PREOP 14:30
PROVIDERS: ATTEND Surgery
DX: Z01.818 Encounter for other preprocedural examination (principal)

== ENCOUNTER 2019-02-06 14:55 | Outpatient (CLI) | payer MEDICARE, MEDICAID ==
[~2019-02-06] VITALS: Ht 175.3 cm; Wt 84.4 kg
[~2019-02-06 14:55] MED LIST changes: +GABA-488 PO; +METO-387 PO
== END 2019-02-06 14:58 | disposition home or self-care (01) ==
LOC: PREOP 14:55
PROVIDERS: ATTEND Surgery
DX: Z01.818 Encounter for other preprocedural examination (principal)

== ENCOUNTER 2019-02-12 12:59 | Day surgery (SDC) | payer MEDICARE, MEDICAID ==
--- NOTE | 2018-12-04 12:10 | Anesthesia-General Post-Op ---
MAC Patient Condition Mental Status/LOC: Same as Preop Cardiovascular: Satisfactory Nausea/Vomiting: Absent Respiratory: Satisfactory Pain: Controlled Complications: Absent Post Op Complications Complications None Follow Up Care/Instructions Patient Instructions None needed. Anesthesiology Discharge Order Discharge Order Patient is doing well, no complaints, stable vital signs, no apparent adverse anesthesia problems. No complications reported per nursing. TIFFANIE LAWSON CRNA December 04, 2018 12:10
[~2019-02-12] VITALS: Ht 175.3 cm; Wt 84.4 kg
[2019-02-12] MEDS ORDERED: LACTATED RINGERS 1,000 ML IV STA (13:07)
[2019-02-12] MEDS ORDERED: LACTATED RINGERS 1,000 ML IV ONE (13:13)
[2019-02-12 13:15] VITALS: BP 117/84
[2019-02-12] MEDS ORDERED: HURRICAINE EXT TUBE (BENZOCAINE) XX PRN (13:15)
--- OUTSIDE RECORDS SUMMARY | 2019-02-12 13:29 | XMS REPORT ---
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 Name Role Phone YUMIKO MICHEL Unavailable PROBLEMS Type Condition ICD9-CM Code RRS48-[place] Code Onset Dates Condition Status SNOMED Code Problem BPH (benign prostatic hyperplasia) N40.0 Active 076588810 Problem Major depressive disorder, recurrent episode F33.9 Active 816047952 Problem LEROY (generalized anxiety disorder) F41.1 Active 23402132 Problem Spinal stenosis of lumbar region without neurogenic claudication M48.061 Active 38354727 Problem Post traumatic seizure disorder R56.1 Active 80669604 Problem Hypercholesterolemia E78.00 Active 93207077 Problem Irritable bladder N32.89 Active 342866048 Problem Gastroesophageal reflux disease, esophagitis presence not specified K21.9 Active 917523955 Problem Environmental allergies Z91.09 Active 656583706 Problem Tobacco abuse Z72.0 Active 16489700 Problem Chronic pain G89.29 Active 88007720 Problem Seizures R56.9 Active 24221223 Problem COPD (chronic obstructive pulmonary disease) J44.9 Active 59702054 Problem Generalized osteoarthritis M15.9 Active 292589759 ALLERGIES No Information ENCOUNTERS Encounter Location Date Diagnosis [facility] [id number], [place] [address] 13 Jun, 2018 Chronic pain G89.29 [facility] [id number] [address] 14 May, 2018 Chronic pain G89.29 [facility] [address], [place] [address] 29 Apr, 2018 [facility] [id number] [address] 18 Apr, 2018 Chronic pain G89.29 [facility] [id number] [place] [address] Mar, Chronic pain G89.29 [facility] [id number] [place] [address] Feb, Spinal stenosis of lumbar region without neurogenic claudication M48.061 and Seizures R56.9 [facility] [address] [address] Feb, Chronic pain G89.29 [facility] [id number] [place] [address] Feb, [facility] [address] [address] Feb, [facility] [id number] [place] [address] Jan, [facility] [address] [address] Jan, [facility] [id number] [place] [address] Jan, [facility] [address] [address] Jan, Chronic pain G89.29 [facility] [id number] [place] [address] Jan, Generalized osteoarthritis M15.9 ; COPD (chronic obstructive pulmonary disease) J44.9 ; LEROY (generalized anxiety disorder) F41.1 and Gastroesophageal reflux disease, esophagitis presence not specified K21.9 [facility] [id number] [place] [address] Dec, Chronic pain G89.29 [facility] [id number] [place] [address] Dec, Anxiety F41.9 and COPD (chronic obstructive pulmonary disease) J44.9 [facility] [id number] [place] [address] November, Chronic pain G89.29 [facility] [address] [place] [address] November, Medicare annual wellness visit, initial Z00.00 ; COPD (chronic obstructive pulmonary disease) J44.9 ; Major depressive disorder, recurrent episode F33.9 ; Gastroesophageal reflux disease, esophagitis presence not specified K21.9 ; Hypercholesterolemia E78.00 ; Seizures R56.9 ; Chronic pain G89.29 ; BPH (benign prostatic hyperplasia) N40.0 and Encounter for immunization Z23 [facility] [id number] [place] [address] November, Chronic pain G89.29 [facility] [id number] [place] [address] Oct, [facility] [id number] [place] [address] Oct, Chronic pain G89.29 [facility] [id number] [place] [address] Sep, [address] [address] [address] Sep, COPD (chronic obstructive pulmonary disease) J44.9 ; Tobacco abuse Z72.0 ; Major depressive disorder, recurrent episode F33.9 and Hypercholesterolemia E78.00 [facility] [id number] [place] [address] Sep, [facility] [id number] [place] [address] Sep, Hypercholesterolemia E78.00 [facility] [address] [address] Sep, Chronic pain G89.29 ; COPD (chronic obstructive pulmonary disease) J44.9 ; Major depressive disorder, recurrent episode F33.9 ; Post traumatic seizure disorder R56.1 and Hypercholesterolemia E78.00 [facility] [id number] [place] [address] Sep, Chronic pain G89.29 [facility] [id number] [place] [address] 07 Aug, 2017 Major depressive disorder, recurrent episode F33.9 and Gastroesophageal reflux disease, esophagitis presence not specified K21.9 [facility] [id number] [place] [address] 06 Aug, 2017 Chronic pain G89.29 [facility] [address] [address] Jul, Other chronic pain G89.29 and Anxiety F41.9 [facility] [address] [address] Jun, Chronic pain G89.29 and Seizures R56.9 [facility] [address] [address] Jun, Other chronic pain G89.29 and Anxiety F41.9 [facility] [id number] [place] [address] May, COPD (chronic obstructive pulmonary disease) J44.9 [facility] [id number] [place] [address] May, Other chronic pain G89.29 and Anxiety F41.9 [facility] [id number] [place] [address] Apr, Other chronic pain G89.29 and Anxiety F41.9 [facility] [id number] [place] [address] Mar, Anxiety F41.9 and Other chronic pain G89.29 [facility] [id number] [place] [address] Feb, [facility] [id number] [place] [address] Feb, Anxiety F41.9 and Other chronic pain G89.29 [facility] [id number] [place] [address] Feb, [facility] [id number] [place] [address] Feb, COPD (chronic obstructive pulmonary disease) J44.9 ; Sleep apnea due to high altitude G47.31 and Oxygen desaturation during sleep G47.34 [facility] [id number] [place] [address] Jan, Other chronic pain G89.29 and Anxiety F41.9 [facility] [id number] [place] [address] Jan, [facility] [id number] [place] [address] Dec, Anxiety F41.9 and Other chronic pain G89.29 [facility] [id number] [place] [address] Dec, [facility] [id number] [place] [address] Dec, [facility] [id number] [place] [address] Dec, Seizures R56.9 ; Chronic pain G89.29 [...] and COPD (chronic obstructive pulmonary disease) J44.9 [facility] [id number] [place] [address] Dec, [facility] [id number] [place] [address] Dec, [address] [address], [place] [address] Dec, Generalized osteoarthritis M15.9 and Anxiety F41.9 [facility] [id number] [place] [address] November, Status post shoulder surgery Z98.890 [facility] [id number] [place] [address] November, Generalized osteoarthritis M15.9 and Anxiety F41.9 [facility] [id number] [place] [address] Oct, [address] [address] Oct, Bilateral hearing loss, unspecified hearing loss [...] ; Anxiety F41.9 and Environmental allergies Z91.09 [facility] [id number] [place] [address] Oct, Chronic pain G89.29 and LEROY (generalized anxiety disorder) F41.1 [facility] [id number] [place] [address] Sep, [id number] [place] [address] Sep, Tear of right rotator cuff, unspecified [...] disease) J44.9 and Hearing reduced, bilateral H91.93 [address] [id number] [place] [address] Sep, LEROY (generalized anxiety disorder) F41.1 [address] [address] [address] Aug, [address] [address] Aug, Tear of right rotator cuff, unspecified tear extent M75.101 [facility] [id number] [place] [address] Aug, Seizures R56.9 ; Chronic pain G89.29 ; Generalized osteoarthritis M15.9 ; COPD (chronic obstructive pulmonary disease) J44.9 ; LEROY (generalized anxiety disorder) F41.1 ; Gastroesophageal reflux disease, esophagitis presence not specified K21.9 ; Scabies B86 ; Hypercholesterolemia E78.00 ; Irritable bladder N32.89 and Edema, unspecified type R60.9 [id number] [place] [address] Jul, Major depressive disorder, recurrent episode F33.9 [facility] [id number] [place] [address] Jul, Seizures R56.9 ; Hypercholesterolemia E78.00 ; BPH (benign prostatic hyperplasia) N40.0 ; Major depressive disorder, recurrent episode F33.9 and Edema, unspecified type R60.9 [address] [facility] [address] [address] Jul, Chronic pain G89.29 and LEROY (generalized anxiety disorder) F41.1 [address] [id number] [place] [address] Jul, Seizures R56.9 ; COPD (chronic obstructive pulmonary disease) J44.9 [...] shoulder M25.511 and Other chronic pain G89.29 [facility] [address] [address] Jun, [facility] [address] [address] May, [address] [address] [address] Apr, [address] [address] [address] Apr, Seizures R56.9 ; COPD (chronic obstructive pulmonary disease) J44.9 ; BPH (benign prostatic hyperplasia) N40.0 ; Chronic pain G89.29 ; Tobacco abuse Z72.0 ; LEROY (generalized anxiety disorder) F41.1 ; Environmental allergies Z91.09 ; Irritable bladder N32.89 and Hypercholesterolemia E78.00 [address] [id number] [place] [address] Mar, [facility] [address] [address] Mar, [facility] [id number] [place] [address] Mar, [address] [address] Mar, [facility] [id number] [place] [address] Feb, [facility] [address] [address] Feb, Chronic pain G89.29 [facility] [id number], [place] [address] Feb, [facility] [id number] [place] [address] Jan, [facility] [id number] [place] [address] Dec, [facility] [id number] [place] [address] Dec, [facility] [id number] [place] [address] Dec, Seizures R56.9 ; COPD (chronic obstructive pulmonary disease) J44.9 ; Chronic pain G89.29 ; BPH (benign prostatic hyperplasia) N40.0 ; Generalized osteoarthritis M15.9 ; Hypercholesterolemia E78.0 ; Overactive bladder N32.81 ; Insomnia, unspecified type G47.00 ; Other depression F32.8 ; Environmental allergies Z91.09 and Gastroesophageal reflux disease, esophagitis presence not specified K21.9 [facility] [id number] [place] [address] November, Chronic pain due to trauma G89.21 and Anxiety F41.9 [address] [id number] [place] [address] Oct, [facility] [id number] [place] [address] Sep, [facility] [address] [place] [address] 14 Sep, 2015 [address] [facility] [id number] [place] [address] Sep, [facility] [id number] [place] [address] Sep, Seizures R56.9 ; Major depressive disorder, recurrent episode F33.9 and LEROY (generalized anxiety disorder) F41.1 [address] [id number] [place] [address] Aug, [address] [address] Aug, COPD (chronic obstructive pulmonary disease) J44.9 ; Chronic pain G89.29 ; BPH (benign prostatic hyperplasia) N40.0 ; Tobacco abuse Z72.0 ; Generalized osteoarthritis M15.9 ; Seizures R56.9 ; Overactive bladder N32.81 ; Depression F32.9 and Anxiety F41.9 [address] [address] [address] Jul, Essential (primary) hypertension I10 ; Pure hypercholesterolemia E78.0 ; Generalized osteoarthrosis, unspecified site 715.00 and Other usp (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 Z79.[address] [address] Jul, [address] [address] [address] Jul, [place] [address] [address] Jun, [place] [id number] [place] [address] May, [address] [id number] [place] [address] Apr, [facility] [id number] [place] [address] Apr, Seizures R56.9 ; COPD (chronic obstructive pulmonary disease) J44.9 ; Chronic pain G89.29 ; BPH (benign prostatic hyperplasia) N40.0 ; Tobacco abuse Z72.0 ; Generalized osteoarthritis M15.9 ; Insomnia G47.00 ; Anxiety F41.9 and GERD (gastroesophageal reflux disease) K21.9 [id number] [place] [address] Apr, [facility] [address] [place] [address] Mar, [facility] [id number] [place] [address] Feb, Major depression, recurrent 296.30 and Generalized anxiety disorder 300.02 [facility] [id number] [place] [address] Feb, [facility] [id number] [place] [address] Feb, [facility] [id number] [place] [address] Jan, Chronic pain due to injury 338.21 ; Seizures 780.39 ; COPD (chronic obstructive pulmonary disease) 496 ; BPH (benign prostatic hyperplasia) 600.00 ; Tobacco use disorder 305.1 ; Generalized osteoarthrosis, unspecified site 715.00 ; Anxiety 300.00 ; GERD (gastroesophageal reflux disease) 530.81 and Hypercholesteremia 272.0 [place] [id number] [place] [address] Jan, [facility] [id number] [place] [address] Jan, [place] [place] [address] [place] [address] Jan, [facility] [id number] [place] [address] Jan, Seizures 780.39 ; COPD (chronic obstructive pulmonary disease) 496 ; Chronic pain due to injury 338.21 ; BPH (benign prostatic hyperplasia) 600.00 ; Tobacco use disorder 305.1 ; Generalized osteoarthrosis, unspecified site 715.00 ; Encounter for long-term (current) use of other medications V58.69 ; GERD (gastroesophageal reflux disease) 530.81 ; Hypercholesteremia 272.0 and Depression [id number] [place] [address] Jan, [facility] [address] [facility] [id number] [place] [address] Jan, Chronic pain due to injury 338.21 [facility] [address] [facility] [id number] [place] [address] Dec, [facility] [address] [facility] [id number] [place] [address] Dec, Seizures 780.39 ; COPD (chronic obstructive pulmonary disease) 496 ; Chronic pain due to injury 338.21 ; Environmental allergies V15.09 ; GERD (gastroesophageal reflux disease) 530.81 ; Essential hypertension 401.9 ; Psoriasis 696.1 ; PTSD (post-traumatic stress disorder) 309.81 and Depression (emotion) 311 IMMUNIZATIONS No Known Immunizations SOCIAL HISTORY Never Assessed REASON FOR VISIT Controlled Med Refill 07/13 PLAN OF CARE VITAL SIGNS MEDICATIONS Medication [...] dioxide poisoning 2013 Hospitalization History [facility]- CP and SOB 10/17/2017
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
--- OUTSIDE RECORDS SUMMARY | 2019-02-12 13:30 | XMS REPORT ---
Author Author YUMIKO MICHEL [facility] Address [address] [place] [address] Care Team Providers Care News Production Supervisor Name Role Phone YUMIKO MICHEL Unavailable PROBLEMS Type Condition ICD9-CM Code [id number] Code Onset Dates Condition Status SNOMED Code Problem BPH (benign prostatic hyperplasia) N40.0 Active 443067646 Problem Major depressive disorder, recurrent episode F33.9 Active 198543633 Problem LEROY (generalized anxiety disorder) F41.1 Active 03813476 Problem Spinal stenosis of lumbar region without neurogenic claudication M48.061 Active 66362530 Problem Post traumatic seizure disorder R56.1 Active 06295377 Problem Hypercholesterolemia E78.00 Active 44860394 Problem Irritable bladder N32.89 Active 393257336 Problem Gastroesophageal reflux disease, esophagitis presence not specified K21.9 Active 001275568 Problem Environmental allergies Z91.09 Active 011035847 Problem Tobacco abuse Z72.0 Active 94246939 Problem Chronic pain G89.29 Active 52571006 Problem Seizures R56.9 Active 21841137 Problem COPD (chronic obstructive pulmonary disease) J44.9 Active 89221583 Problem Generalized osteoarthritis M15.9 Active 808694659 ALLERGIES No Information ENCOUNTERS Encounter Location Date Diagnosis [facility] [id number] [place] [address] Apr, [facility] [address] [address] Apr, Chronic pain G89.29 [facility] [id number] [place] [address] Mar, Chronic pain G89.29 [facility] [address] [address] Feb, Spinal stenosis of lumbar region without neurogenic claudication M48.061 and Seizures R56.9 [facility] [address] [address] Feb, Chronic pain G89.29 [facility] [id number] [address] Feb, [facility] [id number] [place] [address] Feb, [facility] [id number] [place] [address] Jan, [facility] [id number] [place] [address] Jan, [facility] [id number] [place] [address] Jan, [facility] [id number] [place] [address] Jan, Chronic pain G89.29 [facility] [id number] [address] Jan, Generalized osteoarthritis M15.9 ; COPD (chronic obstructive pulmonary disease) J44.9 ; LEROY (generalized anxiety disorder) F41.1 and Gastroesophageal reflux disease, esophagitis presence not specified K21.9 [facility] [address] [address] Dec, Chronic pain G89.29 [facility] [id number] [place] [address] Dec, Anxiety F41.9 and COPD (chronic obstructive pulmonary disease) J44.9 [facility] [address] [address] November, Chronic pain G89.29 [facility] [address] [address] November, Medicare annual wellness visit, initial Z00.00 ; COPD (chronic obstructive pulmonary disease) J44.9 ; Major depressive disorder, recurrent episode F33.9 ; Gastroesophageal reflux disease, esophagitis presence not specified K21.9 ; Hypercholesterolemia E78.00 ; Seizures R56.9 ; Chronic pain G89.29 ; BPH (benign prostatic hyperplasia) N40.0 and Encounter for immunization Z23 [facility] [id number] [place] [address] November, Chronic pain G89.29 [facility] [address] [address] Oct, [facility] [address] [address] Oct, Chronic pain G89.29 [facility] [address] [address] Sep, [facility] [address] [address] Sep, COPD (chronic obstructive pulmonary disease) J44.9 ; Tobacco abuse Z72.0 ; Major depressive disorder, recurrent episode F33.9 and Hypercholesterolemia E78.00 [facility] [address] [address] Sep, [facility] [address] [address] Sep, Hypercholesterolemia E78.00 [facility] [address] [address] Sep, Chronic pain G89.29 ; COPD (chronic obstructive pulmonary disease) J44.9 ; Major depressive disorder, recurrent episode F33.9 ; Post traumatic seizure disorder R56.1 and Hypercholesterolemia E78.00 [facility] [address] [address] Sep, Chronic pain G89.29 [facility] [id number] [place] [address] Aug, Major depressive disorder, recurrent episode F33.9 and Gastroesophageal reflux disease, esophagitis presence not specified K21.9 [facility] [id number] [place] [address] Aug, Chronic pain G89.29 [facility] [id number] [place] [address] Jul, Other chronic pain G89.29 and Anxiety F41.9 [facility] [address] [address] 15 Jun, 2017 Chronic pain G89.29 and Seizures R56.9 [facility] [address] [address] Jun, Other chronic pain G89.29 and Anxiety F41.9 [facility] [id number] [place] [address] May, COPD (chronic obstructive pulmonary disease) J44.9 [facility] [address] [address] May, Other chronic pain G89.29 and Anxiety F41.9 [facility] [id number] [place] [address] Apr, Other chronic pain G89.29 and Anxiety F41.9 [facility] [id number] [place] [address] Mar, Anxiety F41.9 and Other chronic pain G89.29 [facility] [id number] [place] [address] Feb, [facility] [id number] [place] [address] Feb, Anxiety F41.9 and Other chronic pain G89.29 [facility] [id number] [place] [address] Feb, [facility] [id number] [place] [address] Feb, COPD (chronic obstructive pulmonary disease) J44.9 ; Sleep apnea due to high altitude G47.31 and Oxygen desaturation during sleep G47.34 [facility] [id number] [place] [address] Jan, Other chronic pain G89.29 and Anxiety F41.9 [facility] [id number] [place] [address] Jan, [facility] [address] [address] Dec, Anxiety F41.9 and Other chronic pain G89.29 [facility] [address] [address] Dec, [facility] [id number] [place] [address] Dec, [facility] [address] [address] Dec, Seizures R56.9 ; Chronic pain G89.29 [...] and COPD (chronic obstructive pulmonary disease) J44.9 [facility] [id number] [place] [address] Dec, [facility] [id number] [place] [address] Dec, [facility] [id number] [place] [address] Dec, Generalized osteoarthritis M15.9 and Anxiety F41.9 [facility] [id number] [place] [address] 12 May, 2017 Status post shoulder surgery Z98.890 [facility] [id number] [place] [address] November, Generalized osteoarthritis M15.9 and Anxiety F41.9 [facility] [id number] [place] [address] Oct, [facility] [id number] [place] [address] Oct, Bilateral hearing loss, unspecified hearing loss [...] ; Anxiety F41.9 and Environmental allergies Z91.09 [facility] [id number] [place] [address] Oct, Chronic pain G89.29 and LEROY (generalized anxiety disorder) F41.1 [facility] [id number] [place] [address] Sep, [facility] [id number] [place] [address] Sep, Tear of right rotator cuff, unspecified [...] disease) J44.9 and Hearing reduced, bilateral H91.93 [facility] [address] [address] Sep, LEROY (generalized anxiety disorder) F41.1 [facility] [id number] [place] [address] Aug, [facility] [address] [place] [address] [id number] Aug, Tear of right rotator cuff, unspecified tear extent M75.101 [facility] [address] [address] Aug, Seizures R56.9 ; Chronic pain G89.29 ; Generalized osteoarthritis M15.9 ; COPD (chronic obstructive pulmonary disease) J44.9 ; LEROY (generalized anxiety disorder) F41.1 ; Gastroesophageal reflux disease, esophagitis presence not specified K21.9 ; Scabies B86 ; Hypercholesterolemia E78.00 ; Irritable bladder N32.89 and Edema, unspecified type R60.9 [facility] [address] [address] Jul, Major depressive disorder, recurrent episode F33.9 [facility] [id number] [place] [address] Jul, Seizures R56.9 ; Hypercholesterolemia E78.00 ; BPH (benign prostatic hyperplasia) N40.0 ; Major depressive disorder, recurrent episode F33.9 and Edema, unspecified type R60.9 [facility] [id number] [place] [address] Jul, Chronic pain G89.29 and LEROY (generalized anxiety disorder) F41.1 [facility] [id number] [place] [address] Jul, Seizures R56.9 ; COPD (chronic obstructive [...] shoulder M25.511 and Other chronic pain G89.29 [facility] [id number] [place] [address] Jun, [facility] [id number] [place] [address] May, [facility] [address] [address] Apr, [facility] [id number] [place] [address] Apr, Seizures R56.9 ; COPD (chronic obstructive pulmonary disease) J44.9 ; BPH (benign prostatic hyperplasia) N40.0 ; Chronic pain G89.29 ; Tobacco abuse Z72.0 ; LEROY (generalized anxiety disorder) F41.1 ; Environmental allergies Z91.09 ; Irritable bladder N32.89 and Hypercholesterolemia E78.00 [facility] [id number] [place] [address] Mar, [facility] [address] [address] Mar, [facility] [id number] [place] [address] Mar, [facility] [id number] [place] [address] Mar, [facility] [id number] [place] [address] Feb, [facility] [id number] [place] [address] Feb, Chronic pain G89.29 [facility] [id number] [place] [address] Feb, [facility] [id number] [place] [address] Jan, [facility] [id number] [place] [address] Dec, [facility] [address] [address] Dec, [facility] [id number] [place] [address] Dec, Seizures R56.9 ; COPD (chronic obstructive pulmonary disease) J44.9 ; Chronic pain G89.29 ; BPH (benign prostatic hyperplasia) N40.0 ; Generalized osteoarthritis M15.9 ; Hypercholesterolemia E78.0 ; Overactive bladder N32.81 ; Insomnia, unspecified type G47.00 ; Other depression F32.8 ; Environmental allergies Z91.09 and Gastroesophageal reflux disease, esophagitis presence not specified K21.9 [facility] [id number] [place] [address] November, Chronic pain due to trauma G89.21 and Anxiety F41.9 [facility] [id number] [place] [address] Oct, [facility] [address] [address] Sep, [facility] [id number] [place] [address] Sep, [facility] [id number] [place] [address] Sep, [facility] [address] [address] Sep, Seizures R56.9 ; Major depressive disorder, recurrent episode F33.9 and LEROY (generalized anxiety disorder) F41.1 [facility] [address] [address] Aug, [facility] [id number] [place] [address] Aug, COPD (chronic obstructive pulmonary disease) J44.9 ; Chronic pain G89.29 ; BPH (benign prostatic hyperplasia) N40.0 ; Tobacco abuse Z72.0 ; Generalized osteoarthritis M15.9 ; Seizures R56.9 ; Overactive bladder N32.81 ; Depression F32.9 and Anxiety F41.9 [facility] [address] [place] [address] Jul, Essential (primary) hypertension I10 ; Pure hypercholesterolemia E78.0 ; Generalized osteoarthrosis, unspecified site 715.00 and Other fci (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 Z79.899 [facility] [id number] [place] [address] Jul, [facility] [id number] [place] [address] Jul, [facility] [id number] [place] [address] Jun, [facility] [id number] [place] [address] May, [facility] [id number] [place] [address] Apr, [facility] [id number] [place] [address] Apr, Seizures R56.9 ; COPD (chronic obstructive pulmonary disease) J44.9 ; Chronic pain G89.29 ; BPH (benign prostatic hyperplasia) N40.0 ; Tobacco abuse Z72.0 ; Generalized osteoarthritis M15.9 ; Insomnia G47.00 ; Anxiety F41.9 and GERD (gastroesophageal reflux disease) K21.9 [facility] [id number] [place] [address] Apr, [facility] [id number] [place] [address] Mar, [facility] [id number] [place] [address] Feb, Major depression, recurrent 296.30 and Generalized anxiety disorder 300.02 [facility] [address] [address] Feb, [facility] [id number] [place] [address] Feb, [facility] [id number] [place] [address] Jan, Chronic pain due to injury 338.21 ; Seizures 780.39 ; COPD (chronic obstructive pulmonary disease) 496 ; BPH (benign prostatic hyperplasia) 600.00 ; Tobacco use disorder 305.1 ; Generalized osteoarthrosis, unspecified site 715.00 ; Anxiety 300.00 ; GERD (gastroesophageal reflux disease) 530.81 and Hypercholesteremia 272.0 [facility] [id number] [place] [address] Jan, [facility] [id number] [place] [address] Jan, [facility] [id number] [place] [address] Jan, [facility] [id number] [place] [address] Jan, Seizures 780.39 ; COPD (chronic obstructive pulmonary disease) 496 ; Chronic pain due to injury 338.21 ; BPH (benign prostatic hyperplasia) 600.00 ; Tobacco use disorder 305.1 ; Generalized osteoarthrosis, unspecified site 715.00 ; Encounter for long-term (current) use of other medications V58.69 ; GERD (gastroesophageal reflux disease) 530.81 ; Hypercholesteremia 272.0 and Depression 311 [facility] [id number] [place] [address] Jan, [facility] [address] [place] [address] Jan, Chronic pain due to injury 338.21 [facility] [id number] [place] [address] Dec, [facility] [address] [facility] [id number] [address] Dec, Seizures 780.39 ; COPD (chronic obstructive pulmonary disease) 496 ; Chronic pain due to injury 338.21 ; Environmental allergies V15.09 ; GERD (gastroesophageal reflux disease) 530.81 ; Essential hypertension 401.9 ; Psoriasis 696.1 ; PTSD (post-traumatic stress disorder) 309.81 and Depression (emotion) 311 IMMUNIZATIONS No Known Immunizations SOCIAL HISTORY Never Assessed REASON FOR VISIT Hospital admit/DC PLAN OF CARE VITAL SIGNS MEDICATIONS Unknown [...] dioxide poisoning 2013 Hospitalization History [facility] [place]- CP and SOB 10/17/2017
--- OUTSIDE RECORDS SUMMARY | 2019-02-12 13:30 | XMS REPORT ---
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 Name Role Phone veraDENISHA KAYLYNN Unavailable PROBLEMS Type Condition ICD9-CM Code JAY70-JO Code Onset Dates Condition Status SNOMED Code Problem BPH (benign prostatic hyperplasia) N40.0 Active 598515912 Problem Major depressive disorder, recurrent episode F33.9 Active 264143635 Problem LEROY (generalized anxiety disorder) F41.1 Active 27622551 Problem Spinal stenosis of lumbar region without neurogenic claudication M48.061 Active 84741183 Problem Post traumatic seizure disorder R56.1 Active 96690992 Problem Hypercholesterolemia E78.00 Active 58989676 Problem Irritable bladder N32.89 Active 133258704 Problem Gastroesophageal reflux disease, esophagitis presence not specified K21.9 Active 937861474 Problem Environmental allergies Z91.09 Active 150988315 Problem Tobacco abuse Z72.0 Active 79171588 Problem Chronic pain G89.29 Active 97200848 Problem Seizures R56.9 Active 06400018 Problem COPD (chronic obstructive pulmonary disease) J44.9 Active 24622981 Problem Generalized osteoarthritis M15.9 Active 949132614 ALLERGIES No Information ENCOUNTERS Encounter Location Date Diagnosis [facility] [id number] [place] [address] 14 May, 2018 Chronic pain G89.29 [facility] [id number], [place] [address] Apr, [facility] [id number] [place] [address] 18 Apr, 2018 Chronic pain G89.29 [facility] [id number] [address] Mar, Chronic pain G89.29 [facility] [id number] [place] [address] Feb, Spinal stenosis of lumbar region without neurogenic claudication M48.061 and Seizures R56.9 [facility] [id number] [place] [address] Feb, Chronic pain G89.29 [facility] [id number] [place] [address] Feb, [facility] [id number] [place] [address] Feb, [facility] [address] [address] Jan, [facility] [id number] [place] [address] Jan, [facility] [id number] [place] [address] Jan, [facility] [id number] [place] [address] Jan, Chronic pain G89.29 [facility] [id number] [place] [address] Jan, Generalized osteoarthritis M15.9 ; COPD (chronic obstructive pulmonary disease) J44.9 ; LEROY (generalized anxiety disorder) F41.1 and Gastroesophageal reflux disease, esophagitis presence not specified K21.9 [facility] [id number] [place] [address] Dec, Chronic pain G89.29 [facility] [id number] [place] [address] Dec, Anxiety F41.9 and COPD (chronic obstructive pulmonary disease) J44.9 [facility] [id number] [place] [address] November, Chronic pain G89.29 [facility] [address] [place] [address] November, Medicare annual wellness visit, initial Z00.00 ; COPD (chronic obstructive pulmonary disease) J44.9 ; Major depressive disorder, recurrent episode F33.9 ; Gastroesophageal reflux disease, esophagitis presence not specified K21.9 ; Hypercholesterolemia E78.00 ; Seizures R56.9 ; Chronic pain G89.29 ; BPH (benign prostatic hyperplasia) N40.0 and Encounter for immunization Z23 [facility] [address] [address] November, Chronic pain G89.29 [facility] [address] [address] Oct, [facility] [id number] [place] [address] Oct, Chronic pain G89.29 [facility] [id number] [place] [address] Sep, [facility] [id number] [place] [address] Sep, COPD (chronic obstructive pulmonary disease) J44.9 ; Tobacco abuse Z72.0 ; Major depressive disorder, recurrent episode F33.9 and Hypercholesterolemia E78.00 [facility] [id number] [place] [address] Sep, [facility] [id number] [place] [address] Sep, Hypercholesterolemia E78.00 [facility] [id number] [place] [address] Sep, Chronic pain G89.29 ; COPD (chronic obstructive pulmonary disease) J44.9 ; Major depressive disorder, recurrent episode F33.9 ; Post traumatic seizure disorder R56.1 and Hypercholesterolemia E78.00 [facility] [id number] [place] [address] Sep, Chronic pain G89.29 [facility] [id number] [place] [address] 07 Aug, 2017 Major depressive disorder, recurrent episode F33.9 and Gastroesophageal reflux disease, esophagitis presence not specified K21.9 [facility] [address] [address] 06 Aug, 2017 Chronic pain G89.29 [place] [address] [address] Jul, Other chronic pain G89.29 and Anxiety F41.9 [place] [address] [address] 15 Jun, 2017 Chronic pain G89.29 and Seizures R56.9 [place] [address] [address] Jun, Other chronic pain G89.29 and Anxiety F41.9 [place] [place] [address] [address] May, COPD (chronic obstructive pulmonary disease) J44.9 [place] [address] [address] May, Other chronic pain G89.29 and Anxiety F41.9 [place] [id number] [place] [address] Apr, Other chronic pain G89.29 and Anxiety F41.9 [place] [address] [address] Mar, Anxiety F41.9 and Other chronic pain G89.29 [place] [address] [address] Feb, [place] [address] [address] Feb, Anxiety F41.9 and Other chronic pain G89.29 [facility] [address] [address] Feb, [place] [id number] [place] [address] Feb, COPD (chronic obstructive pulmonary disease) J44.9 ; Sleep apnea due to high altitude G47.31 and Oxygen desaturation during sleep G47.34 [place] [id number] [place] [address] Jan, Other chronic pain G89.29 and Anxiety F41.9 [place] [address] [address] Jan, [address] [address] Dec, Anxiety F41.9 and Other chronic pain G89.29 [place] [id number] [place] [address] Dec, [place] [address] [address] Dec, [place] [id number] [place] [address] Dec, Seizures R56.9 ; Chronic pain G89.29 [...] and COPD (chronic obstructive pulmonary disease) J44.9 [place] [id number] [place] [address] Dec, [place] [id number] [place] [address] Dec, [place] [id number] [place] [address] Dec, Generalized osteoarthritis M15.9 and Anxiety F41.9 [place] [id number] [place] [address] November, Status post shoulder surgery Z98.890 [place] [id number] [place] [address] November, Generalized osteoarthritis M15.9 and Anxiety F41.9 [id number] [place] [address] Oct, [id number] [place] [address] Oct, Bilateral hearing loss, unspecified hearing loss [...] ; Anxiety F41.9 and Environmental allergies Z91.[id number] [place] [address] Oct, Chronic pain G89.29 and LEROY (generalized anxiety disorder) F41.1 [id number] [place] [address] Sep, [id number] [place] [address] Sep, Tear of right rotator cuff, unspecified [...] disease) J44.9 and Hearing reduced, bilateral H91.93 [place] [id number] [place] [address] Sep, LEROY (generalized anxiety disorder) F41.1 [place] [id number] [place] [address] Aug, [address] [address] Aug, Tear of right rotator cuff, unspecified tear extent M75.101 [id number] [place] [address] Aug, Seizures R56.9 ; Chronic pain G89.29 ; Generalized osteoarthritis M15.9 ; COPD (chronic obstructive pulmonary disease) J44.9 ; LEROY (generalized anxiety disorder) F41.1 ; Gastroesophageal reflux disease, esophagitis presence not specified K21.9 ; Scabies B86 ; Hypercholesterolemia E78.00 ; Irritable bladder N32.89 and Edema, unspecified type R60.9 [place] [id number] [place] [address] Jul, Major depressive disorder, recurrent episode F33.9 [id number] [place] [address] Jul, Seizures R56.9 ; Hypercholesterolemia E78.00 ; BPH (benign prostatic hyperplasia) N40.0 ; Major depressive disorder, recurrent episode F33.9 and Edema, unspecified type R60.9 [place] [id number] [place] [address] Jul, Chronic pain G89.29 and LEROY (generalized anxiety disorder) F41.1 [place] [id number] [place] [address] Jul, Seizures R56.9 ; COPD (chronic obstructive [...] shoulder M25.511 and Other chronic pain G89.29 [place] [id number] [place] [address] Jun, [facility] [address] [address] May, [place] [address] [address] Apr, [place] [address] [address] Apr, Seizures R56.9 ; COPD (chronic obstructive pulmonary disease) J44.9 ; BPH (benign prostatic hyperplasia) N40.0 ; Chronic pain G89.29 ; Tobacco abuse Z72.0 ; LEROY (generalized anxiety disorder) F41.1 ; Environmental allergies Z91.09 ; Irritable bladder N32.89 and Hypercholesterolemia E78.00 [place] [id number] [place] [address] Mar, [place] [id number] [place] [address] Mar, [place] [id number] [place] [address] Mar, [place] [id number] [place] [address] Mar, [place] [address] [address] Feb, [place] [id number] [place] [address] Feb, Chronic pain G89.29 [place] [address] [address] Feb, [facility] [id number] [place] [address] Jan, [place] [id number] [place] [address] Dec, [address] [address] [address] Dec, [address] [address] [address] Dec, Seizures R56.9 ; COPD (chronic obstructive pulmonary disease) J44.9 ; Chronic pain G89.29 ; BPH (benign prostatic hyperplasia) N40.0 ; Generalized osteoarthritis M15.9 ; Hypercholesterolemia E78.0 ; Overactive bladder N32.81 ; Insomnia, unspecified type G47.00 ; Other depression F32.8 ; Environmental allergies Z91.09 and Gastroesophageal reflux disease, esophagitis presence not specified K21.9 [place] [id number] [place] [address] November, Chronic pain due to trauma G89.21 and Anxiety F41.9 [place] [id number] [place] [address] Oct, [place] [id number] [place] [address] Sep, [place] [id number] [place] [address] Sep, [place] [id number] [place] [address] Sep, [place] [id number] [place] [address] Sep, Seizures R56.9 ; Major depressive disorder, recurrent episode F33.9 and LEROY (generalized anxiety disorder) F41.1 [place] [address] [address] Aug, [id number] [place] [address] Aug, COPD (chronic obstructive pulmonary disease) J44.9 ; Chronic pain G89.29 ; BPH (benign prostatic hyperplasia) N40.0 ; Tobacco abuse Z72.0 ; Generalized osteoarthritis M15.9 ; Seizures R56.9 ; Overactive bladder N32.81 ; Depression F32.9 and Anxiety F41.[address] [address] Jul, Essential (primary) hypertension I10 ; Pure hypercholesterolemia E78.0 ; Generalized osteoarthrosis, unspecified site 715.00 and Other bed bug exterminator (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 Z79.899 [id number] [place] [address] Jul, [address] [address] Jul, [address] [place] [id number] [place] [address] Jun, [address] [address] May, [address] [id number] [place] [address] Apr, [address] [address] Apr, Seizures R56.9 ; COPD (chronic obstructive pulmonary disease) J44.9 ; Chronic pain G89.29 ; BPH (benign prostatic hyperplasia) N40.0 ; Tobacco abuse Z72.0 ; Generalized osteoarthritis M15.9 ; Insomnia G47.00 ; Anxiety F41.9 and GERD (gastroesophageal reflux disease) K21.9 [address] [id number] [place] [address] Apr, [address] [address] Mar, [facility] [address], [place] [address] Feb, Major depression, recurrent 296.30 and Generalized anxiety disorder 300.02 [facility] [address] [address] Feb, [facility] [id number] [place] [address] Feb, [facility] [id number] [place] [address] Jan, Chronic pain due to injury 338.21 ; Seizures 780.39 ; COPD (chronic obstructive pulmonary disease) 496 ; BPH (benign prostatic hyperplasia) 600.00 ; Tobacco use disorder 305.1 ; Generalized osteoarthrosis, unspecified site 715.00 ; Anxiety 300.00 ; GERD (gastroesophageal reflux disease) 530.81 and Hypercholesteremia 272.0 [place] [id number] [place] [address] Jan, [facility] [id number] [place] [address] Jan, [place] [id number] [place] [address] Jan, [facility] [id number] [place] [address] Jan, Seizures 780.39 ; COPD (chronic obstructive pulmonary disease) 496 ; Chronic pain due to injury 338.21 ; BPH (benign prostatic hyperplasia) 600.00 ; Tobacco use disorder 305.1 ; Generalized osteoarthrosis, unspecified site 715.00 ; Encounter for long-term (current) use of other medications V58.69 ; GERD (gastroesophageal reflux disease) 530.81 ; Hypercholesteremia 272.0 and Depression 311 [facility] [id number] [place] [address] Jan, [facility] [id number] [place] [address] Jan, Chronic pain due to injury 338.21 [facility] [address] [facility] [id number] [place] [address] Dec, [facility] [address] [facility] [id number] [place] [address] Dec, Seizures 780.39 ; COPD (chronic obstructive pulmonary disease) 496 ; Chronic pain due to injury 338.21 ; Environmental allergies V15.09 ; GERD (gastroesophageal reflux disease) 530.81 ; Essential hypertension 401.9 ; Psoriasis 696.1 ; PTSD (post-traumatic stress disorder) 309.81 and Depression (emotion) 311 IMMUNIZATIONS No Known Immunizations SOCIAL HISTORY Never Assessed REASON FOR VISIT Reduced Hearing PLAN OF CARE VITAL SIGNS MEDICATIONS Unknown [...] dioxide poisoning 2013 Hospitalization History [facility] [place]- CP and SOB 10/17/2017
[2019-02-12] MEDS ORDERED: MIDAZOLAM 2 MG/2 ML (VERSED) VIAL ONE (13:42)
[2019-02-12] MEDS ORDERED: PROPOFOL INJECTION 50 ML IV ONE (13:42)
--- NOTE | 2019-02-12 14:24 | Progress Note-Pre Operative ---
Pre-Operative Progress Note H&P Reviewed The H&P was reviewed, patient examined and no changes noted. Date Seen by Provider: Feb 12, 2019 Time Seen by Provider: 14:24 Date H&P Reviewed: Feb 12, 2019 Time H&P Reviewed: 14:24 Pre-Operative Diagnosis: hx polyps, family hx colon cancer, gerd ITALO WARREN DO Feb 12, 2019 14:24
[2019-02-12 15:25] VITALS: BP 135/84
[2019-02-12 15:30] VITALS: BP 121/74
--- NOTE | 2019-02-12 15:31 | Progress Note-Post Operative ---
Post-Operative Progess Note Surgeon (s)/Art Therapy Certified Supervisor (s) Surgeon ITALO WARREN DO Art Therapy Certified Supervisor: na Pre-Operative Diagnosis hx polyps, family hx colon cancer, gerd Post-Operative Diagnosis gastritis c erosion, colon polyps x 9 Procedure & Operative Findings Date of Procedure 02/12/19 Procedure Performed/Findings egd c biopsies, colonoscopy c hot bx polypectomy x 5 and snare polypectomy x 4 Anesthesia Type per [facility] Estimated Blood Loss Estimated blood loss (mL): none Specimens/Packing Specimens Removed antral erosion, ge, colon polyps ITALO WARREN DO Feb 12, 2019 15:30
[2019-02-12 15:35] VITALS: BP 117/69
--- NOTE | 2019-02-12 15:39 | Discharge Inst-Simple/Standard ---
Discharge Inst-Standard Patient Instructions/Follow Up Plan of Care/Instructions/FU: 2 weeks jaun Activity as Tolerated: Yes Discharge Diet: Regular Diet ITALO WARREN DO Feb 12, 2019 15:39
--- OUTSIDE RECORDS SUMMARY | 2019-02-12 15:57 | XMS REPORT | Continuity of Care Document ---
Demographics x Preferred Language Unknown Marital Status Unknown Gnosticist Affiliation Unknown Race Unknown Ethnic Group Unknown Author Organization Unknown Address Unknown Allergies Active Description Code Type Severity Reaction Onset Reported/Identified Relationship to Patient Clinical Status Yes Codeine 1550 Drug Allergy N/A irritable, hypertension, jittery Yes Prozac 6733 Drug Allergy N/A irregular heart Yes Ultracet 81227 Drug Allergy N/A Nausea~aggitated~neck and headache Yes PSYCHIATRIC MED X2(UNKNOWN NAMES) PSYCHIATRIC MED X2(UNKNOWN NAMES) Unknown N/A 07/05/2015 Yes acetaminophen [id number] Drug Allergy Unknown N/A 11/23/2016 Yes codeine [id number] Drug Allergy Unknown N/A 11/23/2016 Yes fluoxetine [id number] Drug Allergy Unknown N/A 11/23/2016 Yes morphine [id number] Drug Allergy Unknown couldn't sleep 11/23/2016 Yes tramadol [id number] Drug Allergy Unknown N/A 11/23/2016 Medications There is no data. Problems Date Dx Coded Attending Type Code Diagnosis Diagnosed By 10/19/2013 BENIGNO AVILA [address] [employer] OBSTRUCT [...] HEADACHE 07/06/2015 MYRNA ZAPATA Ot Z79.899 OTHER [place] (CURRENT) DRUG THERAPY 02/03/2016 BILL WATSON APRN Ot F17.210 NICOTINE DEPENDENCE, CIGARETTES, UNCOMPL 02/03/2016 BILL WATSON PUMPMAN Ot K52.9 NONINFECTIVE GASTROENTERITIS AND COLITIS 09/19/2016 MADIE ELLIOTT SUBACUTE NURSE Ot M75.101 UNSP ROTATR-CUFF TEAR/RUPTR OF RIGHT SHMUEL 09/19/2016 MADIE ELLIOTT SUBACUTE NURSE Ot M75.101 UNSP ROTATR-CUFF TEAR/RUPTR OF RIGHT SHMUEL 10/10/2016 MADIE ELLIOTT SUBACUTE NURSE Ot M75.101 UNSP ROTATR-CUFF TEAR/RUPTR OF RIGHT SHMUEL 10/14/2016 MADIE ELLIOTT SUBACUTE NURSE Ot M75.101 UNSP ROTATR-CUFF TEAR/RUPTR OF RIGHT SHMUEL 11/23/2016 ALY CORREA MD Ot S43.431A SUPERIOR GLENOID LABRUM LESION OF RIGHT 11/23/2016 ALY CORREA MD Ot Z01.818 ENCOUNTER FOR OTHER PREPROCEDURAL EXAMIN 11/23/2016 ALY CORREA MD Ot Z11.2 ENCOUNTER FOR SCREENING FOR OTHER BACTER 11/29/2016 ALY CORREA MD Ot S43.431A SUPERIOR GLENOID LABRUM LESION OF RIGHT 11/29/2016 ALY CORREA MD Ot Z01.818 ENCOUNTER FOR OTHER PREPROCEDURAL EXAMIN 11/29/2016 ALY CORREA MD Ot Z11.2 ENCOUNTER FOR SCREENING FOR OTHER BACTER 11/30/2016 ALY CORREA MD Ot E78.5 HYPERLIPIDEMIA, UNSPECIFIED 11/30/2016 ALY CORREA MD Ot F17.210 NICOTINE DEPENDENCE, CIGARETTES, UNCOMPL 11/30/2016 ALY CORREA MD, Ot F32.9 MAJOR DEPRESSIVE DISORDER, SINGLE EPISOD 11/30/2016 ALY CORREA MD, Ot F41.9 ANXIETY DISORDER, UNSPECIFIED 11/30/2016 ALY CORREA MD, Ot G40.909 EPILEPSY, UNSP, NOT INTRACTABLE, WITHOUT 11/30/2016 ALY CORREA MD Ot G47.33 OBSTRUCTIVE SLEEP APNEA (ADULT) (PEDIATR 11/30/2016 ALY CORREA MD Ot I10 ESSENTIAL (PRIMARY) HYPERTENSION 11/30/2016 ALY CORREA MD, Ot I25.10 ATHSCL HEART DISEASE OF [place] CORONARY 11/30/2016 ALY CORREA MD, Ot I50.9 HEART FAILURE, UNSPECIFIED 11/30/2016 ALY CORREA MD, Ot J30.9 ALLERGIC RHINITIS, UNSPECIFIED 11/30/2016 ALY CORREA MD, Ot J44.9 CHRONIC OBSTRUCTIVE PULMONARY DISEASE, U 11/30/2016 ALY CORREA MD, Ot K21.9 GASTRO-ESOPHAGEAL REFLUX DISEASE WITHOUT 11/30/2016 ALY CORREA MD Ot M19.90 UNSPECIFIED OSTEOARTHRITIS, UNSPECIFIED 11/30/2016 ALY CORREA MD Ot M75.41 IMPINGEMENT SYNDROME OF RIGHT SHOULDER 11/30/2016 ALY CORREA MD, Ot N40.0 BENIGN PROSTATIC HYPERPLASIA WITHOUT LOW 11/30/2016 ALY CORREA MD Ot S43.431A SUPERIOR GLENOID LABRUM LESION OF RIGHT 11/30/2016 ALY CORREA MD, Ot Z79.899 OTHER [place] (CURRENT) DRUG THERAPY 11/30/2016 ALY CORREA MD, Ot Z86.73 PRSNL HX OF TIA (TIA), AND CEREB INFRC W 12/01/2016 ALY CORREA MD Ot E78.5 HYPERLIPIDEMIA, UNSPECIFIED 12/01/2016 ALY CORREA MD Ot F17.210 NICOTINE DEPENDENCE, CIGARETTES, UNCOMPL 12/01/2016 ALY CORREA MD, Ot F32.9 MAJOR DEPRESSIVE DISORDER, SINGLE EPISOD 12/01/2016 ALY CORREA MD, Ot F41.9 ANXIETY DISORDER, UNSPECIFIED 12/01/2016 ALY CORREA MD, Ot G40.909 EPILEPSY, UNSP, NOT INTRACTABLE, WITHOUT 12/01/2016 ALY CORREA MD, Ot G47.33 OBSTRUCTIVE SLEEP APNEA (ADULT) (PEDIATR 12/01/2016 ALY CORREA MD Ot I10 ESSENTIAL (PRIMARY) HYPERTENSION 12/01/2016 ALY CORREA MD, Ot I25.10 ATHSCL HEART DISEASE OF [place] CORONARY 12/01/2016 ALY CORREA MD, Ot I50.9 HEART FAILURE, UNSPECIFIED 12/01/2016 ALY CORREA MD, Ot J30.9 ALLERGIC RHINITIS, UNSPECIFIED 12/01/2016 ALY CORREA MD, Ot J44.9 CHRONIC OBSTRUCTIVE PULMONARY DISEASE, U 12/01/2016 ALY CORREA MD, Ot K21.9 GASTRO-ESOPHAGEAL REFLUX DISEASE WITHOUT 12/01/2016 ALY CORREA MD, Ot M19.90 UNSPECIFIED OSTEOARTHRITIS, UNSPECIFIED 12/01/2016 ALY CORREA MD, Ot M75.41 IMPINGEMENT SYNDROME OF RIGHT SHOULDER 12/01/2016 ALY CORREA MD, Ot N40.0 BENIGN PROSTATIC HYPERPLASIA WITHOUT LOW 12/01/2016 ALY CORREA MD Ot S43.431A SUPERIOR GLENOID LABRUM LESION OF RIGHT 12/01/2016 ALY CORREA MD, Ot Z79.899 OTHER LONG-TERM (CURRENT) DRUG THERAPY 12/01/2016 ALY CORREA MD, Ot Z86.73 PRSNL HX OF TIA (TIA), AND CEREB INFRC W 12/01/2016 ALY CORREA MD Ot E78.5 HYPERLIPIDEMIA, UNSPECIFIED 12/01/2016 ALY CORREA MD Ot F17.210 NICOTINE DEPENDENCE, CIGARETTES, UNCOMPL 12/01/2016 ALY CORREA MD Ot F32.9 MAJOR DEPRESSIVE DISORDER, SINGLE EPISOD 12/01/2016 ALY CORREA MD, Ot F41.9 ANXIETY DISORDER, UNSPECIFIED 12/01/2016 ALY CORREA MD, Ot G40.909 EPILEPSY, UNSP, NOT INTRACTABLE, WITHOUT 12/01/2016 ALY CORREA MD, Ot G47.33 OBSTRUCTIVE SLEEP APNEA (ADULT) (PEDIATR 12/01/2016 ALY CORREA MD Ot I10 ESSENTIAL (PRIMARY) HYPERTENSION 12/01/2016 ALY CORREA MD Ot I25.10 ATHSCL HEART DISEASE OF [place] CORONARY 12/01/2016 ALY CORREA MD, Ot I50.9 HEART FAILURE, UNSPECIFIED 12/01/2016 ALY CORREA MD, Ot J30.9 ALLERGIC RHINITIS, UNSPECIFIED 12/01/2016 ALY CORERA MD, Ot J44.9 CHRONIC OBSTRUCTIVE PULMONARY DISEASE, U 12/01/2016 ALY CORREA MD, Ot K21.9 GASTRO-ESOPHAGEAL REFLUX DISEASE WITHOUT 12/01/2016 ALY CORREA MD, Ot M19.90 UNSPECIFIED OSTEOARTHRITIS, UNSPECIFIED 12/01/2016 ALY CORREA MD, Ot M75.41 IMPINGEMENT SYNDROME OF RIGHT SHOULDER 12/01/2016 ALY CORREA MD, Ot N40.0 BENIGN PROSTATIC HYPERPLASIA WITHOUT LOW 12/01/2016 ALY CORREA MD, Ot S43.431A SUPERIOR GLENOID LABRUM LESION OF RIGHT 12/01/2016 ALY CORREA MD, Ot Z79.899 OTHER [place] (CURRENT) DRUG THERAPY 12/01/2016 ALY CORREA MD, Ot Z86.73 PRSNL HX OF TIA (TIA), AND CEREB INFRC W 12/06/2016 ALY CORREA MD, Ot E78.5 HYPERLIPIDEMIA, UNSPECIFIED 12/06/2016 ALY CORREA MD, Ot F17.210 NICOTINE DEPENDENCE, CIGARETTES, UNCOMPL 12/06/2016 ALY CORREA MD, Ot F32.9 MAJOR DEPRESSIVE DISORDER, SINGLE EPISOD 12/06/2016 ALY CORREA MD, Ot F41.9 ANXIETY DISORDER, UNSPECIFIED 12/06/2016 ALY CORREA MD, Ot G40.909 EPILEPSY, UNSP, NOT INTRACTABLE, WITHOUT 12/06/2016 ALY CORREA MD, Ot G47.33 OBSTRUCTIVE SLEEP APNEA (ADULT) (PEDIATR 12/06/2016 ALY CORREA MD, Ot I10 ESSENTIAL (PRIMARY) HYPERTENSION 12/06/2016 ALY CORREA MD, Ot I25.10 ATHSCL HEART DISEASE OF [place] CORONARY 12/06/2016 ALY CORREA MD, Ot I50.9 HEART FAILURE, UNSPECIFIED 12/06/2016 ALY CORREA MD, Ot J30.9 ALLERGIC RHINITIS, UNSPECIFIED 12/06/2016 ALY CORREA MD, Ot J44.9 CHRONIC OBSTRUCTIVE PULMONARY DISEASE, U 12/06/2016 ALY CORREA MD, Ot K21.9 GASTRO-ESOPHAGEAL REFLUX DISEASE WITHOUT 12/06/2016 ALY CORREA MD, Ot M19.90 UNSPECIFIED OSTEOARTHRITIS, UNSPECIFIED 12/06/2016 AYL CORREA MD, Ot M75.41 IMPINGEMENT SYNDROME OF RIGHT SHOULDER 12/06/2016 ALY CORREA MD, Ot N40.0 BENIGN PROSTATIC HYPERPLASIA WITHOUT LOW 12/06/2016 ALY CORREA MD, Ot S43.431A SUPERIOR GLENOID LABRUM LESION OF RIGHT 12/06/2016 ALY CORREA MD, Ot Z79.899 OTHER [place] (CURRENT) DRUG THERAPY 12/06/2016 ALY CORREA MD, Ot Z86.73 PRSNL HX OF TIA (TIA), AND CEREB INFRC W 12/07/2016 ALY CORREA MD, Ot E78.5 HYPERLIPIDEMIA, UNSPECIFIED 12/07/2016 ALY CORREA MD, Ot F17.210 NICOTINE DEPENDENCE, CIGARETTES, UNCOMPL 12/07/2016 ALY CORREA MD, Ot F32.9 MAJOR DEPRESSIVE DISORDER, SINGLE EPISOD 12/07/2016 ALY CORREA MD, Ot F41.9 ANXIETY DISORDER, UNSPECIFIED 12/07/2016 ALY CORREA MD, Ot G40.909 EPILEPSY, UNSP, NOT INTRACTABLE, WITHOUT 12/07/2016 ALY CORREA MD, Ot G47.33 OBSTRUCTIVE SLEEP APNEA (ADULT) (PEDIATR 12/07/2016 ALY CORREA MD Ot I10 ESSENTIAL (PRIMARY) HYPERTENSION 12/07/2016 ALY CORREA MD, Ot I25.10 ATHSCL HEART DISEASE OF [place] CORONARY 12/07/2016 ALY CORREA MD, Ot I50.9 [...] 12/07/2016 ALY CORREA MD, Ot Z79.899 OTHER [place] (CURRENT) DRUG THERAPY 12/07/2016 ALY CORREA MD, Ot Z86.73 PRSNL HX OF TIA (TIA), AND CEREB INFRC W 03/21/2017 COOKIE VENEGAS MD Ot F17.210 NICOTINE DEPENDENCE, CIGARETTES, UNCOMPL 03/21/2017 COOKIE VENEGAS MD Ot F41.9 ANXIETY DISORDER, UNSPECIFIED 03/21/2017 COOKIE VENEGAS MD, Ot F43.10 POST-TRAUMATIC STRESS DISORDER, UNSPECIF 03/21/2017 COOKIE VENEGAS MD Ot G40.909 EPILEPSY, UNSP, NOT INTRACTABLE, WITHOUT 03/21/2017 COOKIE VENEGAS MD Ot I10 ESSENTIAL (PRIMARY) HYPERTENSION 03/21/2017 COOKIE VENEGAS MD Ot I25.2 OLD MYOCARDIAL INFARCTION 03/21/2017 COOKIE VENEGAS MD Ot J43.9 EMPHYSEMA, UNSPECIFIED 03/21/2017 COOKIE VENEGAS MD Ot K21.9 GASTRO-ESOPHAGEAL REFLUX DISEASE WITHOUT 03/21/2017 COOKIE VENEGAS MD Ot M19.90 UNSPECIFIED OSTEOARTHRITIS, UNSPECIFIED 03/21/2017 COOKIE VENEGAS MD Ot M25.511 PAIN IN RIGHT SHOULDER 03/21/2017 COOKIE VENEGAS MD Ot Z86.73 PRSNL HX OF TIA (TIA), AND CEREB INFRC W 03/21/2017 COOKIE VENEGAS MD Ot Z87.820 PERSONAL HISTORY OF TRAUMATIC BRAIN INJU 03/21/2017 COOKIE VENEGAS MD Ot Z90.89 ACQUIRED ABSENCE OF OTHER ORGANS 03/21/2017 COOKIE VENEGAS MD Ot Z96.652 PRESENCE OF LEFT ARTIFICIAL KNEE JOINT 03/29/2017 MADIE ELLIOTT SUBACUTE NURSE Ot M75.101 UNSP ROTATR-CUFF TEAR/RUPTR OF RIGHT SHMUEL 04/04/2017 ALY CORREA MD, Ot M19.011 PRIMARY OSTEOARTHRITIS, RIGHT SHOULDER 04/04/2017 ALY CORREA MD Ot S46.111A STRAIN [place] [facility] [place]TEND LONG HD BICEP, 04/04/2017 ALY CORREA MD Ot X50.9XXA OTHER AND UNSPECIFIED OVREXRTN OR STRNOU 04/04/2017 ALY CORREA MD Ot Y99.8 OTHER EXTERNAL CAUSE STATUS 04/21/2017 ALY CORREA MD Ot M19.011 PRIMARY OSTEOARTHRITIS, RIGHT SHOULDER 04/21/2017 ALY CORREA MD Ot S46.111A STRAIN OF [facility] [place]/TEND LONG HD BICEP, 04/21/2017 ALY CORREA MD Ot X50.9XXA OTHER AND UNSPECIFIED OVREXRTN OR STRNOU 04/21/2017 ALY CORREA MD Ot Y99.8 OTHER EXTERNAL CAUSE STATUS 04/26/2017 ALY CORREA MD, Ot M19.011 PRIMARY OSTEOARTHRITIS, RIGHT SHOULDER 04/26/2017 ALY CORREA MD Ot S46.111A STRAIN OF [facility] [place]/TEND LONG HD BICEP, 04/26/2017 ALY CORREA MD Ot X50.9XXA OTHER AND UNSPECIFIED OVREXRTN OR STRNOU 04/26/2017 ALY CORREA MD Ot Y99.8 OTHER EXTERNAL CAUSE STATUS 10/18/2017 JARAD WEBSTER, ROSAURA Tello Ot E78.00 PURE HYPERCHOLESTEROLEMIA, UNSPECIFIED 10/18/2017 JARAD WEBSTER, ROSAURA Tello Ot F17.210 NICOTINE DEPENDENCE, CIGARETTES, UNCOMPL 10/18/2017 JARAD WEBSTER, ROSAURA Tello Ot F41.9 ANXIETY DISORDER, UNSPECIFIED 10/18/2017 JARAD WEBSTER, ROSAURA Tello Ot F43.10 POST-TRAUMATIC STRESS DISORDER, UNSPECIF 10/18/2017 JARAD WEBSTER, ROSAURA Tello Ot G40.909 EPILEPSY, UNSP, NOT INTRACTABLE, WITHOUT 10/18/2017 JARAD WEBSTER, ROSAURA Tello Ot I10 ESSENTIAL (PRIMARY) HYPERTENSION 10/18/2017 ROSAURA ABRAHAM MD Ot I25.10 ATHSCL HEART DISEASE OF [place] CORONARY 10/18/2017 ROSAURA ABRAHAM MD Ot I25.2 OLD MYOCARDIAL INFARCTION 10/18/2017 ROSAURA ABRAHAM MD Ot J44.1 CHRONIC OBSTRUCTIVE PULMONARY DISEASE W 10/18/2017 ROSAURA ABRAHAM MD Ot K21.9 GASTRO-ESOPHAGEAL REFLUX DISEASE WITHOUT 10/18/2017 ROSAURA ABRAHAM MD Ot R07.2 PRECORDIAL PAIN 10/18/2017 ROSAURA ABRAHAM MD Ot Z79.51 LONG-TERM (CURRENT) USE OF INHALED STERO 10/18/2017 ROSAURA ABRAHAM MD Ot Z79.52 LONG-TERM (CURRENT) USE OF SYSTEMIC STER 10/18/2017 ROSAURA [...] MD Ot I25.10 ATHSCL HEART DISEASE OF [place] CORONARY 10/20/2017 ROSAURA ABRAHAM MD Ot I25.2 OLD MYOCARDIAL INFARCTION 10/20/2017 ROSAURA ABRAHAM MD Ot J44.1 CHRONIC OBSTRUCTIVE PULMONARY DISEASE W 10/20/2017 ROSAURA ABRAHAM MD Ot K21.9 GASTRO-ESOPHAGEAL REFLUX DISEASE WITHOUT 10/20/2017 ROSAURA ABRAHAM MD Ot R07.2 PRECORDIAL PAIN 10/20/2017 ROSAURA ABRAHAM MD Ot Z79.51 LONG-TERM (CURRENT) USE OF INHALED STERO 10/20/2017 ROSAURA ABRAHAM MD Ot Z79.52 [place] (CURRENT) USE OF SYSTEMIC STER 10/20/2017 ROSAURA [...] MD Ot I25.10 ATHSCL HEART DISEASE OF [place] CORONARY 10/24/2017 ROSAURA ABRAHAM MD Ot I25.2 OLD MYOCARDIAL INFARCTION 10/24/2017 ROSAURA ABRAHAM MD Ot J44.1 CHRONIC OBSTRUCTIVE PULMONARY DISEASE W 10/24/2017 ROSAURA ABRAHAM MD Ot K21.9 GASTRO-ESOPHAGEAL REFLUX DISEASE WITHOUT 10/24/2017 ROSAURA ABRAHAM MD Ot R07.2 PRECORDIAL PAIN 10/24/2017 ROSAURA ABRAHAM MD Ot Z79.51 LONG-TERM (CURRENT) USE OF INHALED STERO 10/24/2017 ROSAURA ABRAHAM MD Ot Z79.52 LONG-TERM (CURRENT) USE OF SYSTEMIC STER 10/24/2017 ROSAURA ABRAHAM MD Ot Z86.73 PRSNL HX OF TIA (TIA), AND CEREB INFRC W 10/24/2017 ROSAURA ABRAHAM MD, Ot Z87.820 PERSONAL HISTORY OF TRAUMATIC BRAIN INJU 10/24/2017 ROSAURA ABRAHAM MD, Ot Z88.5 ALLERGY STATUS TO NARCOTIC AGENT STATUS 10/24/2017 ROSAURA ABRAHAM MD, Ot Z88.6 ALLERGY STATUS TO ANALGESIC AGENT STATUS 10/24/2017 ROSAURA ABRAHAM MD, Ot Z88.8 ALLERGY STATUS TO OTH DRUG/MEDS/BIOL SUB 10/24/2017 ROSAURA ABRAHAM MD Ot Z90.89 ACQUIRED ABSENCE OF OTHER ORGANS 10/26/2017 Zia MONTOYA MD Ot E78.5 HYPERLIPIDEMIA, UNSPECIFIED 10/26/2017 Zia MONTOYA MD Ot F17.210 NICOTINE DEPENDENCE, CIGARETTES, UNCOMPL 10/26/2017 Zia MONTOYA MD Ot G40.909 EPILEPSY, UNSP, NOT INTRACTABLE, WITHOUT 10/26/2017 Zia MONTOYA MD Ot I10 ESSENTIAL (PRIMARY) HYPERTENSION 10/26/2017 Zia MONTOYA MD Ot I25.2 OLD MYOCARDIAL INFARCTION 10/26/2017 Zia MONTOYA MD Ot J45.909 UNSPECIFIED ASTHMA, UNCOMPLICATED 10/26/2017 Zia MONTOYA MD Ot R07.2 PRECORDIAL PAIN 10/26/2017 Zia MONTOYA MD Ot Z79.899 OTHER [place] (CURRENT) DRUG THERAPY 10/26/2017 Zia MONTOYA MD [...] NICOTINE DEPENDENCE, CIGARETTES, UNCOMPL 10/27/2017 Zia MONTOYA MD, Ot G40.909 EPILEPSY, UNSP, NOT INTRACTABLE, WITHOUT 10/27/2017 Zia MONTOYA MD Ot I10 ESSENTIAL (PRIMARY) HYPERTENSION 10/27/2017 Zia MONTOYA MD, Ot I25.2 OLD MYOCARDIAL INFARCTION 10/27/2017 Zia MONTOYA MD, Ot J45.909 UNSPECIFIED ASTHMA, UNCOMPLICATED 10/27/2017 Zia MONTOYA MD, Ot R07.2 PRECORDIAL PAIN 10/27/2017 Zia MONTOYA MD, Ot Z79.899 OTHER [place] (CURRENT) DRUG THERAPY 10/27/2017 Zia MONTOYA MD, Ot Z82.49 FAMILY HX OF ISCHEM HEART DIS AND OTH DI 10/27/2017 Zia MONTOYA MD, Ot Z86.73 PRSNL HX OF TIA (TIA), AND CEREB INFRC W 10/27/2017 Zia MONTOYA MD, Ot Z87.820 PERSONAL HISTORY OF TRAUMATIC BRAIN INJU 11/16/2017 ALY CORREA MD Ot M19.011 PRIMARY OSTEOARTHRITIS, RIGHT SHOULDER 11/16/2017 ALY CORREA MD, Ot S46.111A STRAIN OF MUSC/FASC/TEND LONG HD BICEP, 11/16/2017 ALY CORREA MD, Ot X50.9XXA OTHER AND UNSPECIFIED OVREXRTN OR STRNOU 11/16/2017 ALY CORREA MD, Ot Y99.8 OTHER EXTERNAL CAUSE STATUS 11/21/2017 Zia MONTOYA MD, Ot E78.5 HYPERLIPIDEMIA, UNSPECIFIED 11/21/2017 Zia MONTOYA MD, Ot I10 ESSENTIAL (PRIMARY) HYPERTENSION 11/21/2017 Zia MONTOYA MD, Ot I20.0 UNSTABLE ANGINA 11/21/2017 Zia MONTOYA MD Ot Z72.0 TOBACCO USE 11/26/2017 Zia MONTOYA MD, Ot E78.5 HYPERLIPIDEMIA, UNSPECIFIED 11/26/2017 JAN WEBSTER, Zia SAL Ot I10 ESSENTIAL (PRIMARY) HYPERTENSION 11/26/2017 JAN WEBSTER, Zia SAL Ot I20.0 UNSTABLE ANGINA 11/26/2017 JAN WEBSTER, Zia SAL Ot Z72.0 TOBACCO USE 12/12/2017 JAN WEBSTER, Zia SAL Ot E78.5 HYPERLIPIDEMIA, UNSPECIFIED 12/12/2017 JAN WEBSTER, Zia SAL Ot I10 ESSENTIAL (PRIMARY) HYPERTENSION 12/12/2017 JAN WEBSTER, Zia SAL Ot I20.0 UNSTABLE ANGINA 12/12/2017 JAN WEBSTER, Zia SAL Ot Z72.0 TOBACCO USE 12/19/2017 JAN WEBSTER, Zia SAL Ot E78.5 HYPERLIPIDEMIA, UNSPECIFIED 12/19/2017 Zia MONTOYA MD Ot I10 ESSENTIAL (PRIMARY) HYPERTENSION 12/19/2017 Zia MONTOYA MD Ot I20.0 UNSTABLE ANGINA 12/19/2017 Zia MONTOYA MD Ot Z72.0 TOBACCO USE 05/25/2018 ALY CORREA MD, Ot M19.011 PRIMARY OSTEOARTHRITIS, RIGHT SHOULDER 05/25/2018 ALY CORREA MD, Ot S46.111A STRAIN OF MUSC/FASC/TEND LONG HD BICEP, 05/25/2018 ALY CORREA MD, Ot X50.9XXA OTHER AND UNSPECIFIED OVREXRTN OR STRNOU 05/25/2018 ALY CORREA MD Ot Y99.8 OTHER EXTERNAL CAUSE STATUS 05/25/2018 Zia MONTOYA MD, Ot E78.5 HYPERLIPIDEMIA, UNSPECIFIED 05/25/2018 Zia MONTOYA MD Ot I10 ESSENTIAL (PRIMARY) HYPERTENSION 05/25/2018 Zia MONTOYA MD, Ot I20.0 UNSTABLE ANGINA 05/25/2018 Zia MONTOYA MD Ot Z72.0 TOBACCO USE 05/25/2018 THEO WEBSTER, COOKIE Kelly Ot F17.210 NICOTINE DEPENDENCE, CIGARETTES, UNCOMPL 05/25/2018 THEO WEBSTER, COOKIE Kelly Ot F41.9 ANXIETY DISORDER, UNSPECIFIED 05/25/2018 COOKIE VENEGAS MD, Ot F43.10 POST-TRAUMATIC STRESS DISORDER, UNSPECIF 05/25/2018 COOKIE VENEGAS MD, Ot G40.909 EPILEPSY, UNSP, NOT INTRACTABLE, WITHOUT 05/25/2018 COOKIE VENEGAS MD, Ot G47.30 SLEEP APNEA, UNSPECIFIED 05/25/2018 COOKIE VENEGAS MD, Ot I10 ESSENTIAL (PRIMARY) HYPERTENSION 05/25/2018 COOKIE VENEGAS MD, Ot I25.2 OLD MYOCARDIAL INFARCTION 05/25/2018 COOKIE VENEGAS MD, Ot I49.3 VENTRICULAR PREMATURE DEPOLARIZATION 05/25/2018 COOKIE VENEGAS MD, Ot J43.9 EMPHYSEMA, UNSPECIFIED 05/25/2018 COOKIE VENEGAS MD, Ot K21.9 GASTRO-ESOPHAGEAL REFLUX DISEASE WITHOUT 05/25/2018 COOKIE VENEGAS MD, Ot R07.9 CHEST PAIN, UNSPECIFIED 05/25/2018 COOKIE VENEGAS MD, Ot Z79.51 [place] (CURRENT) USE OF INHALED STERO 05/25/2018 COOKIE VENEGAS MD, Ot Z87.19 PERSONAL HISTORY OF OTHER DISEASES OF TH 05/25/2018 COOKIE VENEGAS MD, Ot Z87.828 PERSONAL HISTORY OF OTH (HEALED) PHYSICA 05/25/2018 COOKIE VENEGAS MD, Ot Z88.5 ALLERGY STATUS TO NARCOTIC AGENT STATUS 05/25/2018 COOKIE VENEGAS MD, Ot Z88.6 ALLERGY STATUS TO ANALGESIC AGENT STATUS 05/25/2018 COOKIE VENEGAS MD, Ot Z88.8 ALLERGY STATUS TO OTH DRUG/MEDS/BIOL SUB 05/25/2018 COOKIE VENEGAS MD, Ot Z90.89 ACQUIRED ABSENCE OF OTHER ORGANS 05/25/2018 COOKIE VENEGAS MD, Ot Z96.652 PRESENCE OF LEFT ARTIFICIAL KNEE JOINT 05/26/2018 SILVINO BARROSO MD Ot E78.00 PURE HYPERCHOLESTEROLEMIA, UNSPECIFIED 05/26/2018 SILVINO BARROSO MD Ot F17.210 NICOTINE DEPENDENCE, CIGARETTES, UNCOMPL 05/26/2018 SILVINO BARROSO MD, Ot F41.9 ANXIETY DISORDER, UNSPECIFIED 05/26/2018 SILVINO BARROSO MD, Ot G40.909 EPILEPSY, UNSP, NOT INTRACTABLE, WITHOUT 05/26/2018 SILVINO BARROSO MD, Ot G47.30 SLEEP APNEA, UNSPECIFIED 05/26/2018 SILVINO BARROSO MD Ot I10 ESSENTIAL (PRIMARY) HYPERTENSION 05/26/2018 SILVINO BARROSO MD, Ot I25.2 OLD MYOCARDIAL INFARCTION 05/26/2018 SILVINO BARROSO MD, Ot I49.3 VENTRICULAR PREMATURE DEPOLARIZATION 05/26/2018 SILVINO BARROSO MD, Ot J43.9 EMPHYSEMA, UNSPECIFIED 05/26/2018 SILVINO BARROSO MD, Ot J45.909 UNSPECIFIED ASTHMA, UNCOMPLICATED 05/26/2018 SILVINO BARROSO MD, Ot K21.9 GASTRO-ESOPHAGEAL REFLUX DISEASE WITHOUT 05/26/2018 SILVINO BARROSO MD, Ot R00.2 PALPITATIONS 05/26/2018 SILVINO BARROSO MD, Ot R07.89 OTHER CHEST PAIN 05/26/2018 SILVINO BARROSO MD, Ot Z79.899 OTHER LONG-TERM (CURRENT) DRUG THERAPY 05/26/2018 SILVINO BARROSO MD, Ot Z86.73 PRSNL HX OF TIA (TIA), AND CEREB INFRC W 05/28/2018 COOKIE VENEGAS MD Ot F17.210 NICOTINE DEPENDENCE, CIGARETTES, UNCOMPL 05/28/2018 COOKIE VENEGAS MD Ot F41.9 ANXIETY DISORDER, UNSPECIFIED 05/28/2018 COOKIE VENEGAS MD, Ot F43.10 POST-TRAUMATIC STRESS DISORDER, UNSPECIF 05/28/2018 COOKIE VENEGAS MD Ot G40.909 EPILEPSY, UNSP, NOT INTRACTABLE, WITHOUT 05/28/2018 COOKIE VENEGAS MD Ot G47.30 SLEEP APNEA, UNSPECIFIED 05/28/2018 COOKIE VENEGAS MD Ot I10 ESSENTIAL (PRIMARY) HYPERTENSION 05/28/2018 COOKIE VENEGAS MD Ot I25.2 OLD MYOCARDIAL INFARCTION 05/28/2018 COOKIE VENEGAS MD Ot I49.3 VENTRICULAR PREMATURE DEPOLARIZATION 05/28/2018 COOKIE VENEGAS MD, Ot J43.9 EMPHYSEMA, UNSPECIFIED 05/28/2018 COOKIE VENEGAS MD, Ot K21.9 GASTRO-ESOPHAGEAL REFLUX DISEASE WITHOUT 05/28/2018 COOKIE VENEGAS MD, Ot R07.9 CHEST PAIN, UNSPECIFIED 05/28/2018 COOKIE VENEGAS MD, Ot Z79.51 ROCK PICKER (CURRENT) USE OF INHALED STERO 05/28/2018 COOKIE VENEGAS MD, Ot Z87.19 PERSONAL HISTORY OF OTHER DISEASES OF TH 05/28/2018 COOKIE VENEGAS MD, Ot Z87.828 PERSONAL HISTORY OF OTH (HEALED) PHYSICA 05/28/2018 COOKIE VENEGAS MD, Ot Z88.5 ALLERGY STATUS TO NARCOTIC AGENT STATUS 05/28/2018 COOKIE VENEGAS MD, Ot Z88.6 ALLERGY STATUS TO ANALGESIC AGENT STATUS 05/28/2018 COOKIE VENEGAS MD, Ot Z88.8 ALLERGY STATUS TO OTH DRUG/MEDS/BIOL SUB 05/28/2018 COOKIE VENEGAS MD, Ot Z90.89 ACQUIRED ABSENCE OF OTHER ORGANS 05/28/2018 COOKIE VENEGAS MD, Ot Z96.652 PRESENCE OF LEFT ARTIFICIAL KNEE JOINT 07/13/2018 JAN WEBSTER, Zia SAL Ot I49.3 VENTRICULAR PREMATURE DEPOLARIZATION 07/18/2018 Zia MONTOYA MD Ot I49.3 VENTRICULAR PREMATURE DEPOLARIZATION 08/08/2018 Zia MONTOYA MD Ot I49.3 VENTRICULAR PREMATURE DEPOLARIZATION 08/14/2018 Zia MONTOYA MD Ot I49.3 VENTRICULAR PREMATURE DEPOLARIZATION 11/28/2018 ITALO WARREN DO Ot Z01.818 ENCOUNTER FOR OTHER PREPROCEDURAL EXAMIN 11/29/2018 ITALO WARREN DO Ot Z01.818 ENCOUNTER FOR OTHER PREPROCEDURAL EXAMIN 11/29/2018 ITALO WARREN DO Ot Z01.818 ENCOUNTER FOR OTHER PREPROCEDURAL EXAMIN 02/06/2019 ITALO WARREN DO Ot Z01.818 ENCOUNTER FOR OTHER PREPROCEDURAL EXAMIN 02/06/2019 ITALO WARREN DO Ot Z01.818 ENCOUNTER FOR OTHER PREPROCEDURAL EXAMIN 02/06/2019 ITALO WARREN DO Ot Z01.818 ENCOUNTER FOR OTHER PREPROCEDURAL EXAMIN Procedures There is no data. Results Test Result Range CBC WITH DIFF [...] VANCOT - 10/20/13 00:00 VANCOT 13.0 UG/ML 10-22 LACTIC ACID - 10/20/13 00:00 LA 2.1 MMOLL 0.4-2.0 Methicillin resistant Staphylococcus aureus (MRSA) screening culture - 11/23/16 09:42 Methicillin resistant Staphylococcus aureus (MRSA) screening culture NEG NRG PDM - OPIATES W/ GROUPING - 03/13/18 11:34 Prescribed Drug 1 Percocet(TM) NRG COMMENT [...] 7-25 CREATININE 0.86 mg/dL 0.70-1.33 eGFR NON-AFR. MICRONESIAN 100 mL/min/1.73m2 > OR=60 eGFR 116 mL/min/1.73m2 [...] 9.5 fL 7.5-12.5 ABSOLUTE NEUTROPHILS 4585 cells/uL [id number] ABSOLUTE LYMPHOCYTES 2608 cells/uL [id number] ABSOLUTE MONOCYTES [...] Automated erythrocyte mean corpuscular hemoglobin concentration measurement (mass/volume) 34 g/dL 32-36 Automated erythrocyte distribution width ratio 14.7 % 10.0- 14.5 Automated blood platelet count (count/volume) 314 10*3/uL [...] Blood monocytes automated count (number/volume) 1.0 10*3 0.0- 1.0 Automated eosinophil count 0.2 10*3/uL 0.0-0.3 Automated [...] Serum or plasma aspartate aminotransferase measurement (enzymatic activity/volume) 26 U/L 5-34 Serum or plasma alanine aminotransferase measurement (enzymatic activity/volume) 37 U/L 0-55 Serum or plasma protein measurement (mass/volume) 7.3 g/dL 6.4-8.2 Serum or plasma albumin measurement (mass/volume) 4.2 g/dL 3.2-4.5 Magnesium - 10/18/17 01:00 Magnesium 2.4 mg/dL 1.8-2.4 Serum or plasma troponin i.cardiac measurement (mass/volume) - 10/18/17 01:00 Serum or plasma troponin i.cardiac measurement (mass/volume) < ng/mL <0.30 Myoglobin, serum - 10/18/17 01:00 Myoglobin, [...] Automated erythrocyte mean corpuscular hemoglobin concentration measurement (mass/volume) 35 g/dL 32-36 Automated erythrocyte distribution width ratio 14.6 % 10.0- 14.5 Automated blood platelet count (count/volume) 364 10*3/uL [...] Serum or plasma aspartate aminotransferase measurement (enzymatic activity/volume) 23 U/L 5-34 Serum or plasma alanine aminotransferase measurement (enzymatic activity/volume) 45 U/L 0-55 Serum or plasma protein measurement (mass/volume) 7.2 g/dL 6.4-8.2 Serum or plasma albumin measurement (mass/volume) 4.3 g/dL 3.2-4.5 Lipid 1996 panel - 10/26/17 12:00 Serum or plasma triglyceride measurement (mass/volume) 226 mg/dL <150 Serum or plasma cholesterol measurement (mass/volume) 220 mg/dL < 200 Serum or plasma cholesterol in HDL measurement (mass/volume) 43 mg/dL 40-60 Cholesterol in LDL [mass/volume] in serum or plasma by direct assay 137 mg/dL 1-129 Serum or plasma cholesterol in VLDL measurement (mass/volume) 45 mg/dL 5-40 Methicillin resistant Staphylococcus aureus (MRSA) screening culture - 10/26/17 12:00 Methicillin resistant Staphylococcus aureus (MRSA) screening [...] Automated erythrocyte mean corpuscular hemoglobin concentration measurement (mass/volume) 35 g/dL 32-36 Automated erythrocyte distribution width ratio 14.3 % 10.0- 14.5 Automated blood platelet count (count/volume) 296 10*3/uL [...] Blood monocytes automated count (number/volume) 0.9 10*3 0.0- 1.0 Automated eosinophil count 0.1 10*3/uL 0.0-0.3 Automated [...] Serum or plasma aspartate aminotransferase measurement (enzymatic activity/volume) 20 U/L 5-34 Serum or plasma alanine aminotransferase measurement (enzymatic activity/volume) 32 U/L 0-55 Serum or plasma protein [...] measurement in platelet poor plasma (mass/volume) - 05/25/18 14:35 Fibrin D-dimer FEU measurement in platelet poor plasma (mass/volume) 0.20 ug/mL 0.00-0.49 Serum or plasma troponin i.cardiac measurement (mass/volume) - 05/25/18 14:35 Serum or plasma troponin i.cardiac measurement (mass/volume) < ng/mL <0.30 Myoglobin, serum - 05/25/18 14:35 Myoglobin, [...] Automated erythrocyte mean corpuscular hemoglobin concentration measurement (mass/volume) 34 g/dL 32-36 Automated erythrocyte distribution width ratio 14.3 % 10.0- 14.5 Automated blood platelet count (count/volume) 265 10*3/uL [...] Blood monocytes automated count (number/volume) 1.1 10*3 0.0- 1.0 Automated eosinophil count 0.2 10*3/uL 0.0-0.3 Automated [...] plasma ethanol measurement (mass/volume) < mg/dL <10 Comprehensive metabolic panel - 05/25/18 23:40 Serum or plasma sodium measurement (moles/volume) 140 mmol/L 135-145 Serum or plasma potassium measurement (moles/volume) 3.7 mmol/L 3.6-5.0 Serum or plasma chloride measurement (moles/volume) 105 mmol/L 98-107 Carbon dioxide 23 mmol/L 21-32 Serum or plasma anion gap determination (moles/volume) 12 mmol/L 5-14 Serum or plasma urea nitrogen measurement (mass/volume) 9 mg/dL 7-18 Serum or plasma creatinine measurement (mass/volume) 1.23 mg/dL 0.60-1.30 Serum or plasma urea nitrogen/creatinine mass ratio 7 NRG Serum or plasma creatinine measurement with calculation of estimated glomerular filtration rate > NRG Serum or plasma glucose measurement (mass/volume) 85 mg/dL 70-105 Serum or plasma calcium measurement (mass/volume) 9.1 mg/dL 8.5-10.1 Serum or plasma total bilirubin measurement (mass/volume) 0.6 mg/dL 0.1-1.0 Serum or plasma alkaline phosphatase measurement (enzymatic activity/volume) 96 U/L 40-136 Serum or plasma aspartate aminotransferase measurement (enzymatic activity/volume) 19 U/L 5-34 Serum or plasma alanine aminotransferase measurement (enzymatic activity/volume) 30 U/L 0-55 Serum or plasma protein measurement (mass/volume) 6.8 g/dL 6.4-8.2 Serum or plasma albumin measurement (mass/volume) 4.2 g/dL 3.2-4.5 CALCIUM CORRECTED 8.9 mg/dL 8.5-10.1 Magnesium - 05/25/18 23:40 Magnesium 2.6 mg/dL 1.8-2.4 Serum or plasma creatine kinase measurement (enzymatic activity/volume) - 05/25/18 23:40 Serum or plasma creatine kinase measurement (enzymatic activity/volume) 183 U/L 30-200 Serum or plasma creatine kinase MB measurement (enzymatic activity/volume) - 05/25/18 23:40 Serum or plasma creatine kinase MB measurement (enzymatic activity/volume) 1.1 ng/mL <6.6 Serum or plasma troponin i.cardiac measurement (mass/volume) - 05/25/18 23:40 Serum or plasma troponin i.cardiac measurement (mass/volume) < ng/mL <0.30 Myoglobin, serum - 05/25/18 23:40 Myoglobin, serum 37.0 ng/mL 10.0-92.0 Serum or plasma amylase measurement (enzymatic activity/volume) - 05/25/18 23:40 Serum or plasma amylase measurement (enzymatic activity/volume) 32 U/L 25-125 Serum or plasma lithium measurement (moles/volume) - 05/25/18 23:40 BNP level < pg/mL <100.0 Lipase - 05/25/18 23:40 Lipase 44 U/L 8-78 PT panel in platelet poor plasma by coagulation assay - 05/26/18 05:50 Prothrombin time (PT) in platelet poor plasma by coagulation assay 14.0 s 12.2-14.7 INR in platelet poor plasma or blood by coagulation assay 1.1 0.8-1.4 Activated partial thromboplastin time (aPTT) in platelet poor plasma bycoagulation assay - 05/26/18 05:50 Activated partial thromboplastin time (aPTT) in platelet poor plasma bycoagulation assay 31 s 24-35 Complete blood count (CBC) with automated white blood cell (WBC) differential - 05/26/18 05:50 Blood leukocytes automated count (number/volume) 8.5 10*3/uL 4.3-11.0 Blood erythrocytes automated count (number/volume) 5.28 10*6/uL 4.35-5.85 Venous blood hemoglobin measurement (mass/volume) 15.5 g/dL 13.3-17.7 Blood hematocrit (volume fraction) 47 % 40-54 Automated erythrocyte mean corpuscular volume 88 [foz_us] 80-99 Automated erythrocyte mean corpuscular hemoglobin (mass per erythrocyte) 29 pg 25-34 Automated erythrocyte mean corpuscular hemoglobin concentration measurement (mass/volume) 33 g/dL 32-36 Automated erythrocyte distribution width ratio 14.5 % 10.0- 14.5 Automated blood platelet count (count/volume) 259 10*3/uL 130-400 Automated blood platelet mean volume measurement 10.2 [foz_us] 7.4-10.4 Automated blood neutrophils/100 leukocytes 44 % 42-75 Automated blood lymphocytes/100 leukocytes 44 % 12-44 Blood monocytes/100 leukocytes 10 % 0-12 Automated blood eosinophils/100 leukocytes 2 % 0-10 Automated blood basophils/100 leukocytes 0 % 0-10 Blood neutrophils automated count (number/volume) 3.8 10*3 1.8-7.8 Blood lymphocytes automated count (number/volume) 3.7 10*3 1.0-4.0 Blood monocytes automated count (number/volume) 0.9 10*3 0.0- 1.0 Automated eosinophil count 0.2 10*3/uL 0.0-0.3 Automated blood basophil count (count/volume) 0.0 10*3/uL 0.0-0.1 Comprehensive metabolic panel - 05/26/18 05:50 Serum or plasma sodium measurement (moles/volume) 139 mmol/L 135-145 Serum or plasma potassium measurement (moles/volume) 3.8 mmol/L 3.6-5.0 Serum or plasma chloride measurement (moles/volume) 104 mmol/L 98-107 Carbon dioxide 24 mmol/L 21-32 Serum or plasma anion gap determination (moles/volume) 11 mmol/L 5-14 Serum or plasma urea nitrogen measurement (mass/volume) 11 mg/dL 7-18 Serum or plasma creatinine measurement (mass/volume) 1.04 mg/dL 0.60-1.30 Serum or plasma urea nitrogen/creatinine mass ratio 11 NRG Serum or plasma creatinine measurement with calculation of estimated glomerular filtration rate > NRG Serum or plasma glucose measurement (mass/volume) 99 mg/dL 70-105 Serum or plasma calcium measurement (mass/volume) 9.1 mg/dL 8.5-10.1 Serum or plasma total bilirubin measurement (mass/volume) 0.7 mg/dL 0.1-1.0 Serum or plasma alkaline phosphatase measurement (enzymatic activity/volume) 98 U/L 40-136 Serum or plasma aspartate aminotransferase measurement (enzymatic activity/volume) 19 U/L 5-34 Serum or plasma alanine aminotransferase measurement (enzymatic activity/volume) 31 U/L 0-55 Serum or plasma protein measurement (mass/volume) 6.9 g/dL 6.4-8.2 Serum or plasma albumin measurement (mass/volume) 4.1 g/dL 3.2-4.5 CALCIUM CORRECTED 9.0 mg/dL 8.5-10.1 Serum or plasma troponin i.cardiac measurement (mass/volume) - 05/26/18 05:50 Serum or plasma troponin i.cardiac measurement (mass/volume) < ng/mL <0.30 Myoglobin, serum - 05/26/18 05:50 Myoglobin, serum 35.9 ng/mL 10.0-92.0 Lipid 1996 panel - 05/26/18 05:50 Serum or plasma triglyceride measurement (mass/volume) 192 mg/dL <150 Serum or plasma cholesterol measurement (mass/volume) 179 mg/dL < 200 Serum or plasma cholesterol in HDL measurement (mass/volume) 30 mg/dL 40-60 Cholesterol in LDL [mass/volume] in serum or plasma by direct assay 120 mg/dL 1-129 Serum or plasma cholesterol in VLDL measurement (mass/volume) 38 mg/dL 5-40 Encounters ACCT No. Visit Date/Time Discharge Status Pt. Type Provider Facility Loc./Unit Complaint [id number] 11/25/2014 10:09:00 11/25/2014 23:59:59 CLS Outpatient DIAMOND STRANGE [facility] [id number] 10/29/2014 00:01:00 11/09/2014 12:30:00 DIS Outpatient BENIGNO AVILA [facility] [id number] 09/28/2014 00:01:00 10/28/2014 23:59:00 DIS Outpatient BENIGNO AVILA [facility] [id number] 07/31/2014 00:01:00 07/31/2014 23:59:59 CLS Outpatient BENIGNO AVILA [facility] [id number] 06/30/2014 00:01:00 07/30/2014 23:59:00 DIS Outpatient BENIGNO AVILA [facility] [id number] 05/31/2014 00:01:00 06/29/2014 23:59:00 DIS Outpatient BENIGNO AVILA [facility] [id number] 04/30/2014 00:01:00 05/30/2014 23:59:00 DIS Outpatient BENIGNO AVILA [facility] [id number] 03/31/2014 00:01:00 04/29/2014 23:59:00 DIS Outpatient BENIGNO AVILA [facility] [id number] 02/28/2014 00:01:00 03/30/2014 23:59:00 DIS Outpatient BENIGNO AVILA [facility] DME [id number] 12/29/2013 00:01:00 12/29/2013 23:59:59 CLS Outpatient BENIGNO AVILA [facility] DME [id number] 11/28/2013 00:01:00 12/28/2013 23:59:00 DIS Outpatient BENIGNO AVILA [facility] DME [id number] 10/29/2013 00:01:00 11/27/2013 23:59:00 DIS Outpatient BENIGNO AVILA [facility] DME [id number] 10/29/2013 00:01:00 11/27/2013 23:59:00 DIS Outpatient ALIE [facility] OBS [id number] 10/23/2013 16:10:00 10/28/2013 23:59:00 DIS Outpatient ALIE [facility] OBS [id number] 09/28/2013 00:01:00 10/28/2013 23:59:00 DIS Outpatient BENIGNO AVILA [facility] DME [id number] 10/19/2013 02:27:00 10/23/2013 12:00:00 DIS Inpatient GIOVANNYJAVAN [facility] [id number] 10/19/2013 02:27:00 10/19/2013 02:27:00 DIS Emergency DAVIDEMMETTTobinSINTIA [facility] EMR [id number] 10/19/2013 00:10:00 10/19/2013 00:10:00 DIS Outpatient SINTIA MENG [facility] EMR [id number] 08/31/2013 00:01:00 09/27/2013 23:59:00 DIS Outpatient BENIGNO AVILA [facility] DME [id number] 09/22/2013 15:41:00 09/22/2013 16:30:00 DIS Emergency ALIE [facility] EMR [id number] 10/19/2013 02:25:41 Document Registration [id number] 06/29/2013 00:00:00 Document Registration [id number] 06/29/2013 00:00:00 Document Registration [id number] 02/06/2019 14:55:00 02/06/2019 14:58:00 DIS Outpatient ITALO WARREN DO [facility] PREOP COLONOSCOPY/EGD [id number] 12/04/2018 09:00:00 12/04/2018 23:59:59 CLS Preadmit ITALO WARREN DO [facility] ENDO HX POLYPS/FAMILY HX COLON CA/GERD [id number] 11/29/2018 14:30:00 11/29/2018 14:43:00 DIS Outpatient ITALO WARREN DO [facility] PREOP COLONOSCOPY [id number] 07/16/2018 08:19:00 07/16/2018 23:59:59 CLS Outpatient Zia MONTOYA MD [facility] CARD PVC'S [id number] 05/25/2018 22:58:00 05/26/2018 13:57:00 DIS Inpatient SILVINO BARROSO MD [facility] 4TH CHEST PAIN [id number] 05/25/2018 14:27:00 05/25/2018 16:23:00 DIS Emergency COOKIE VENEGAS MD [facility] ER CHEST PAIN [id number] 11/20/2017 14:01:00 11/20/2017 23:59:59 CLS Outpatient Zia MONTOYA MD [facility] CARD E78.5 HYPERLIPIDEMIA [id number] 10/26/2017 11:31:00 10/26/2017 17:20:00 DIS Outpatient Zia MONTOYA MD [facility] CATH UNSTABLE ANGINA [id number] 10/18/2017 00:47:00 10/18/2017 02:50:00 DIS Emergency ROSAURA ABRAHAM MD [facility] ER SOB,CP [id number] 03/31/2017 07:59:00 03/31/2017 23:59:59 CLS Outpatient ALY CORREA MD [facility] RAD RTC RIGHT M75.111 [id number] 03/21/2017 17:33:00 03/21/2017 19:03:00 DIS Emergency COOKIE VENEGAS MD [facility] ER RT SHOULDER PAIN [id number] 11/30/2016 06:00:00 11/30/2016 10:37:00 DIS Outpatient ALY CORREA MD [facility] SUPERIOR GLENOID LABRUM LESION RIGHT SHOULDER [id number] 11/23/2016 09:09:00 11/23/2016 09:45:00 DIS Outpatient ALY CORREA MD [facility] PREOP SUPERIOR GLENOID LABUM LESION RT SHOULDER [id number] 09/16/2016 09:39:00 09/16/2016 23:59:59 CLS Outpatient MADIE ELLIOTT [facility] RAD TEAR OF RIGHT ROTATOR CUFF [id number] 02/03/2016 16:46:00 02/03/2016 19:14:00 DIS Emergency BILL WATSON APRN [facility] ER DIARRHEA [id number] 07/05/2015 20:54:00 07/06/2015 00:57:00 DIS Emergency MYRNA ZAPATA [facility] ER DIZZINESS,COUGHING [id number] 02/06/2019 13:00:00 02/06/2019 23:59:59 CLS Out[facility]WBSTER[facility] [id number] 10/17/2017 12:40:00 Document Registration [id number] 10/10/2017 11:00:00 Document Registration
[2019-02-12 16:10] VITALS: BP 132/88
[2019-02-12 16:25] VITALS: BP 132/88
--- NOTE | 2019-02-12 16:25 | NUR ---
TAKING PO FLUIDS AND HAS HAD CRACKERS WITHOUT PROBLEM. PASSING FLATUS AND HAS BEEN UP TO BR WITH ASSIST X2. ALERT, DENIES COMPLAINTS, STATES HE IS READY FOR DISMISSAL.
--- NOTE | 2019-02-12 22:33 | OPERATIVE REPORT ---
DATE OF SERVICE: 02/12/2019 PREOPERATIVE DIAGNOSES: History of polyps, family history of colon cancer, gastroesophageal reflux disease. POSTOPERATIVE DIAGNOSES: Gastritis with erosion, colon polyps x9. SURGEON: Italo Pineda DO ANESTHESIA: Per [facility]. PROCEDURES: EGD with biopsies, colonoscopy with hot biopsy polypectomy x5 and snare polypectomy x4. ESTIMATED BLOOD LOSS: None. COMPLICATIONS: None. SPECIMENS: Antrum erosion GE junction and colon polyps. INDICATIONS: The patient is a 54-year-old male with history of polyps, family history of colon cancer and GERD. He understands risks and benefits of procedure and wished to proceed with procedure. Consent was signed and on the chart. DESCRIPTION OF PROCEDURE: The patient was taken to the endoscopy suite, placed in left lateral recumbent position. Timeout was performed. Scope was inserted in mouth, down the esophagus, stomach and into the duodenum without difficulty. There were no polyps, mass or ulcerations in the duodenum. Scope was slowly retracted back in the stomach where it was further insufflated. Some gastritis with antral erosion present. Biopsy of this area was obtained. Scope was retroflexed noting no other pathology. Scope was returned to its normal position, slowly withdrawn to the distal esophagus. There are no polyps, mass or ulcerations. Biopsy GE junction was obtained. Scope was then slowly retracted back until completely removed. Digital rectal exam was performed. There were no palpable polyps, mass or ulcerations. The scope was inserted in the rectum and advanced all the way to the cecum with minimal difficulty. Prep was adequate. Scope was then slowly retracted back. There were no polyps, mass or ulcerations within the cecum. In the ascending colon, a small polyp was present, which hot biopsy polypectomy was performed. A larger polyp was present at the hepatic flexure, which snare polypectomy was performed. This was too large to be suctioned. Therefore, scope was withdrawn and then reinserted all the way back to the polypectomy site. Scope was continuously slowly retracted back to the transverse colon, which another snare polypectomy was performed, which was suctioned and obtained for specimen. Another polyp was present in the splenic flexure, which snare polypectomy was performed. In the descending colon, there were 2 small polyps, which hot biopsy polypectomy was performed. Scope was continued to be slowly retracted back and another polyp present in the descending colon, which snare polypectomy was performed. Scope was continuously slowly retracted back. In the sigmoid colon, there was 2 small polyps, which hot biopsy polypectomy was performed. Scope was continuously slowly retracted back into the rectum, where it was also retroflexed noting no other pathology. Scope was returned to its normal position, slowly withdrawn until completely removed. The patient tolerated procedure well without any complications. He was taken to recovery room in stable condition. RECOMMENDATIONS: The patient will need repeat colonoscopy in one year to the number of polyps and one large size one of the polyps that was snared. The patient will continue with current medications with his reflux. We will await biopsy results. We consider changing to Protonix. If he has any issues before next appointment, he should be seen at that time. Job ID: [id number] DocumentID: [id number] Dictated Date: 02/12/2019 15:43:11 Seasonal Tax Preparer Date: 02/12/2019 22:32:20 Dictated By: ITALO PINEDA DO
== END 2019-02-12 16:25 | disposition home or self-care (01) ==
LOC: ENDO 12:59
PROVIDERS: ATTEND Surgery
DX: Z12.11 Encounter for screening for malignant neoplasm of colon (principal); D12.2 Benign neoplasm of ascending colon; D12.3 Benign neoplasm of transverse colon; D12.4 Benign neoplasm of descending colon; D12.5 Benign neoplasm of sigmoid colon; K63.5 Polyp of colon; K21.9 Gastro-esophageal reflux disease without esophagitis; K25.9 Gastric ulcer, unspecified as acute or chronic, without hemorrhage or perforation; K29.70 Gastritis, unspecified, without bleeding; I10 Essential (primary) hypertension; I25.10 Atherosclerotic heart disease of native coronary artery without angina pectoris; I48.91 Unspecified atrial fibrillation; G47.33 Obstructive sleep apnea (adult) (pediatric); J43.9 Emphysema, unspecified; F17.210 Nicotine dependence, cigarettes, uncomplicated; G40.909 Epilepsy, unspecified, not intractable, without status epilepticus; I25.2 Old myocardial infarction; F43.10 Post-traumatic stress disorder, unspecified; M06.9 Rheumatoid arthritis, unspecified; E78.5 Hyperlipidemia, unspecified; I69.351 Hemiplegia and hemiparesis following cerebral infarction affecting right dominant side; Z88.6 Allergy status to analgesic agent; Z80.0 Family history of malignant neoplasm of digestive organs; Z86.010 Personal history of colon polyps; Z99.81 Dependence on supplemental oxygen
CPT/HCPCS: 88305

== ENCOUNTER 2021-04-13 05:37 | Outpatient (CLI) | payer MEDICARE, MEDICAID ==
[~2021-04-13] VITALS: Ht 172.7 cm; Wt 90.7 kg
[~2021-04-13 05:37] MED LIST changes: -CIPR500T4 PO; +CIPR500T5 PO; -DULO30CA48 PO; +DULO30CA49 PO; -METO-387 PO; +MTP25TSR PO; -OMEP20CA12 PO; +OMEP20CA18 PO; -OXYC-465 PO; +OXYC-556 PO; -TRAZ-190 PO; +TRAZ-227 PO
[2021-04-13] MEDS ORDERED: OMEG1CAP58 PO (13:46)
[2021-04-13] MEDS ORDERED: TRAZ-227 PO (13:46)
[2021-04-13] MEDS ORDERED: ASPI-999 PO (13:46)
[2021-04-13] MEDS ORDERED: GABA300S2 PO (13:46)
[2021-04-13] MEDS ORDERED: SOLI5TAB7 PO (13:46)
== END 2021-04-13 15:05 | disposition home or self-care (01) ==
LOC: PREOP 05:37
PROVIDERS: ATTEND Surgery
DX: Z01.818 Encounter for other preprocedural examination (principal)

== ENCOUNTER 2021-04-20 10:03 | Day surgery (SDC) | payer MEDICARE, MEDICAID ==
[~2021-04-20] VITALS: Ht 173 cm; Wt 91.0 kg
[~2021-04-20 10:03] MED LIST changes: +ASPI-999 PO; +GABA300S2 PO; +SOLI5TAB7 PO
[2021-04-20] MEDS ORDERED: LACTATED RINGERS 1,000 ML IV STA (10:10)
[2021-04-20 10:25] VITALS: BP 128/86
--- NOTE | 2021-04-20 10:55 | Progress Note-Pre Operative ---
Pre-Operative Progress Note H&P Reviewed The H&P was reviewed, patient examined and no changes noted. Date Seen by Provider: Apr 20, 2021 Time Seen by Provider: 10:54 Date H&P Reviewed: Apr 20, 2021 Time H&P Reviewed: 10:54 Pre-Operative Diagnosis: hx polyps ITALO WARREN DO Apr 20, 2021 10:55
[2021-04-20] MEDS ORDERED: PROPOFOL INJECTION 50 ML IV ONE (12:11)
[2021-04-20] MEDS ORDERED: MIDAZOLAM 2 MG/2 ML (VERSED) VIAL ONE (12:11)
--- NOTE | 2021-04-20 12:53 | Progress Note-Post Operative ---
Post-Operative Progess Note Surgeon (s)/Conveyor Belt Operator (s) Surgeon ITALO WARREN DO Conveyor Belt Operator: na Pre-Operative Diagnosis hx polyps Post-Operative Diagnosis colon polyps Procedure & Operative Findings Date of Procedure 04/20/21 Procedure Performed/Findings colonoscopy c hot bx polypectomy x 4 Anesthesia Type per tightener Estimated Blood Loss Estimated blood loss (mL): none Specimens/Packing Specimens Removed colon polyps ITALO WARREN DO Apr 20, 2021 12:53
[2021-04-20 12:55] VITALS: BP 119/57
--- NOTE | 2021-04-20 12:55 | Discharge Inst-Simple/Standard ---
Discharge Inst-Standard Patient Instructions/Follow Up Plan of Care/Instructions/FU: 2 weeks Miriam Activity as Tolerated: Yes Discharge Diet: Regular Diet ITALO WARREN DO Apr 20, 2021 12:55
[2021-04-20 13:00] VITALS: BP_SYST 115; BP_SYST 126; BP_DIAS 65; BP_DIAS 66
[2021-04-20 13:24] VITALS: BP 118/80
[2021-04-20 13:26] VITALS: BP 118/80
--- NOTE | 2021-04-20 14:44 | Anesthesia-General Post-Op ---
MAC Patient Condition Mental Status/LOC: Same as Preop Cardiovascular: Satisfactory Nausea/Vomiting: Absent Respiratory: Satisfactory Pain: Controlled Complications: Absent Post Op Complications Complications None Follow Up Care/Instructions Patient Instructions None needed. Anesthesiology Discharge Order Discharge Order Patient is doing well, no complaints, stable vital signs, no apparent adverse anesthesia problems. No complications reported per nursing. TIFFANIE LAWSON CRNA Apr 20, 2021 14:44
--- NOTE | 2021-04-20 20:17 | OPERATIVE REPORT ---
DATE OF SERVICE: 04/20/2021 PREOPERATIVE DIAGNOSIS: History of colon polyps. POSTOPERATIVE DIAGNOSIS: Colon polyps. PROCEDURES PERFORMED: Colonoscopy with hot biopsy polypectomy x4. SURGEON: Italo Pineda DO. ANESTHESIA: Per [facility]. ESTIMATED BLOOD LOSS: None. COMPLICATIONS: None. INDICATIONS FOR PROCEDURE: The patient is a 56-year-old male needing screening colonoscopy. He understands the risks and benefits of the procedure and wished to proceed with the procedure. Consent was signed in the chart. DESCRIPTION OF PROCEDURE: The patient was taken to the endoscopy suite and placed in a left lateral recumbent position. Timeout was performed. Digital rectal exam was performed. There were no palpable polyps, masses or ulcerations. Scope was inserted in the rectum and advanced all the way to the cecum with minimal difficulty. Prep was adequate. Scope was then slowly retracted back. There were no polyps, masses or ulcerations in the cecum, ascending colon. In the transverse colon, a small polyp was present, which hot biopsy polypectomy was performed. Scope was then continuously retracted back. No other polyps, masses or ulcerations within the remainder of the transverse, descending colon. In the sigmoid colon, three small polyps were present, which hot biopsy polypectomies were performed. Scope was then slowly retracted back into the rectum, where it was retroflexed noting no other pathology. Scope was returned to its normal position, slowly withdrawn until completely removed. The patient tolerated procedure well without any complications and taken to the recovery room in a stable condition. RECOMMENDATIONS: The patient will follow up on pathology in about two weeks. The patient will need repeat colonoscopy in five years. Any issues before that be seen at that time. Job ID: [id number] DocumentID: [id number] Dictated Date: 04/20/2021 12:57:47 Eradicator Date: 04/20/2021 20:16:23 Dictated By: ITALO PINEDA DO
== END 2021-04-20 13:25 | disposition home or self-care (01) ==
LOC: ENDO 10:03
PROVIDERS: ATTEND Surgery
DX: Z12.11 Encounter for screening for malignant neoplasm of colon (principal); K63.5 Polyp of colon; I10 Essential (primary) hypertension; I25.10 Atherosclerotic heart disease of native coronary artery without angina pectoris; J44.9 Chronic obstructive pulmonary disease, unspecified; K21.9 Gastro-esophageal reflux disease without esophagitis; F32.9 Major depressive disorder, single episode, unspecified; F41.9 Anxiety disorder, unspecified; F43.10 Post-traumatic stress disorder, unspecified; F17.210 Nicotine dependence, cigarettes, uncomplicated; Z79.82 Long term (current) use of aspirin; Z79.899 Other long term (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; Z99.81 Dependence on supplemental oxygen

== ENCOUNTER → 2021-05-26 | Outpatient (CLI) | payer MEDICARE, MEDICAID ==
[~2021-05-26] MED LIST changes: -DULO60CA6 PO; +DULO60CA7 PO
--- NOTE | 2021-05-26 14:32 | Diagnostic Imaging Report ---
EXAMINATION: CT chest without contrast (lung screening). TECHNIQUE: Multiple contiguous axial images were obtained through the chest without the use of intravenous contrast according to lung cancer screening protocol. All CT scans use one or more of the following dose optimizing techniques: automated exposure control, MA and/or KvP adjustment based on patient size and exam type or iterative reconstruction. HISTORY: Greater than 30 pack year history of smoking. COMPARISON: None available. FINDINGS: There is no edema or pneumonia. No pleural effusion. No pneumothorax. No suspicious nodules. There is no axillary or supraclavicular lymphadenopathy. There is no mediastinal lymphadenopathy. Heart size is normal. There are mild coronary artery calcifications. No pericardial effusion. Aorta is normal in caliber. Limited views of the upper abdomen are unremarkable. There are no suspicious osseus lesions. IMPRESSION: 1. No suspicious pulmonary nodules. LUNG-RADS CATEGORY: 1 MODIFIER: None. Dictated by: Dictated on workstation # [id number]
== END ==
LOC: RAD 12:59
PROVIDERS: ATTEND Internal Medicine
DX: Z12.2 Encounter for screening for malignant neoplasm of respiratory organs (principal); F17.210 Nicotine dependence, cigarettes, uncomplicated
CPT/HCPCS: 71271

== ENCOUNTER → 2023-03-13 | Outpatient (CLI) | payer OTHER, MEDICAID ==
[~2023-03-13] MED LIST changes: +ALBU8.5H6 INH; -GABA300S2 PO; +GABA300S3 PO; -RT-ALBUINH INH; +RT-ALBUTEROL SULF 2.5 MG/3 ML PRE-MIX VIAL INH ONE
== END ==
LOC: RT 09:08
PROVIDERS: ATTEND Nurse Practitioner Family
DX: J44.9 Chronic obstructive pulmonary disease, unspecified (principal)
CPT/HCPCS: 94060; 94726; 94729